=== PATIENT | female | born 1940 ===

== ENCOUNTER 2017-05-22 09:15 | Inpatient (IN) | payer MEDICARE, OTHER ==
[2017-05-22 09:15] VITALS: BMI 36.3
[2017-05-22] MEDS ORDERED: Albuterol-Ipratrop 3 mg / 0.5 (3 ml) UD ONE (09:42)
[2017-05-22] MEDS: Albuterol-Ipratrop 3 mg / 0.5 (3 ml) UD IH SCH ×3 (09:45→10:15)
--- NOTE | 2017-05-22 09:54 | C.PDOC ---
History Of Present Illness 76 y/o female, with PMHx of asthma, COPD, HTN, is brought to ED by ambulance for evaluation shortness of breath for the last 3 days. Pt was given 2L of oxygen at [place]. Denies fever, chills, cough, chest pain, lower extremity pain/ swelling, or any other associated symptoms at this time. Time Seen by Provider: 05/22/17 09:16 Chief Complaint (Nursing): Shortness Of Breath History Per: Patient History/Exam Limitations: no limitations Onset/Duration Of Symptoms: Days (3) Current Symptoms Are (Timing): Still Present Exacerbating Factor(s): Coughing Current Respiratory Medications: See Home Med List Severity: None Pain Scale Rating Of: 0 Associated Symptoms: denies: Fever, Chills, Sweating, Chest Pain, Bloody Cough, Productive Cough, Heart Racing, Leg/Calf Pain, Ankle/Leg Swelling, Dizziness, Light-headedness, Anxiety, Tingling In Hands Or Face, Musle Spasms In Hands Or Feet Recent travel outside of the [place]: No Additional History Per: EMS, [facility] Past Medical History Reviewed: Historical Data, Nursing Documentation, Vital Signs Vital Signs: Last Vital Signs Temp 97.9 F 05/22/17 09:34 Pulse 97 H 05/22/17 10:17 Resp 32 H 05/22/17 10:17 BP 160/67 H 05/22/17 10:17 Pulse Ox 98 05/22/17 10:18 - Medical History PMH: Asthma, COPD, Dementia, HTN - [facility] Procedures ESOPHAGOGASTRODUODENOSCOPY [EGD] W/CLOSED BIOPSY (02/21/13) Family History: States: No Known Family Hx - Social History Hx Alcohol Use: Yes Hx Substance Use: No - Immunization History Hx Tetanus Toxoid Vaccination: No Hx Influenza Vaccination: No Hx Pneumococcal Vaccination: No Review Of Systems Except As Marked, All Systems Reviewed And Found Negative. Constitutional: Negative for: Fever, Chills Cardiovascular: Negative for: Chest Pain, Palpitations, Edema, Light Headedness Respiratory: Positive for: Shortness of Breath. Negative for: Cough, Hemoptysis , Sputum Neurological: Negative for: Headache, Dizziness Physical Exam - Physical Exam Appears: Non-toxic, No Acute Distress, Other (morbidly obese) Skin: Normal Color, Warm, Dry Head: Atraumatic, Normacephalic Eye(s): bilateral: Normal Inspection Oral Mucosa: Moist Neck: Normal ROM, Supple Chest: Symmetrical Cardiovascular: Rhythm Regular, No Murmur Respiratory: Decreased Breath Sounds (diminished breath sounds bilaterally) Gastrointestinal/Abdominal: Soft, No Tenderness Extremity: Bilateral: Atraumatic, Normal ROM Neurological/Psych: Oriented x3, Normal Speech, Normal Cognition ED Course And Treatment - Laboratory Results Result Diagrams: 05/22/17 09:58 05/22/17 09:58 ECG: Interpreted By Me, Viewed By Me ECG Rhythm: Atrial Fibrillation Interpretation Of ECG: Non specific ST/T wave changes. Rate From EC (on RA) O2 Sat by Pulse Oximetry: 98 (on RA) Pulse Ox Interpretation: Normal Progress Note: Blood work, CXR, EKG ordered and reviewed. Pt was given nebulizer treatment and Solu-Medrol. Critical Care Time - Critical Care Note Total Time (in mins): 45 Documented critical care: time excludes all time spent performing seperately billable procedures. Medical Decision Making Medical Decision Making: CXR HISTORY: sob COMPARISON: Chest x-ray performed 02/20/13 TECHNIQUE: Chest PA and lateral FINDINGS: Examination limited by habitus and hypoinflation. LUNGS: No focal consolidation. Please note that chest x-ray has limited sensitivity for the detection of pulmonary masses. PLEURA: No significant pleural effusion identified. No definite pneumothorax . CARDIOVASCULAR: Marked cardiomegaly. OSSEOUS STRUCTURES: Degenerative changes. VISUALIZED UPPER ABDOMEN: Unremarkable. OTHER FINDINGS: None. IMPRESSION: Marked cardiomegaly. Disposition - Disposition Disposition: HOSPITALIZED Disposition Time: 11:09 Condition: SERIOUS Forms: [facility] (Colombian) - Clinical Impression Clinical Impression: COPD exacerbation, CHF (congestive heart failure), Elevated troponin - Scribe Statement The provider has reviewed the documentation as recorded by the Kayyibelida Torres All medical record entries made by the Kayyibeliad were at my direction and personally dictated by me. I have reviewed the chart and agree that the record accurately reflects my personal performance of the history, physical exam, medical decision making, and the department course for this patient. I have also personally directed, reviewed, and agree with the discharge instructions and disposition.
[2017-05-22 09:56] LABS: DRAW SITE VBG; VENOUS BLOOD GAS BASE EXCESS 10.8 mmol/L (0.0-2.0); VENOUS BLOOD GAS PCO2 115 mmHg (40-60); VENOUS BLOOD PH 7.19 (7.32-7.43)
[2017-05-22 10:04] LABS: BASO # 0.1 K/uL (0.0-0.2); EOS # 0.1 K/uL (0.0-0.7); MEAN PLATELET VOLUME 7.4 fL (7.2-11.7)
[2017-05-22 10:14] LABS: ALKALINE PHOSPHATASE 97 U/L (38-126); ALT/SGPT 30 U/L (9-52); AST/SGOT 27 U/L (14-36); BILIRUBIN,TOTAL 0.5 mg/dL (0.2-1.3); BLOOD UREA NITROGEN 42 mg/dL (7-17); CARBON DIOXIDE 37 mmol/L (22-30); CHLORIDE 96 mmol/L (98-107); GFR AFRICAN-AMERICAN > 60; GLUCOSE,RANDOM 117 mg/dL (65-105); POTASSIUM 5.2 mmol/L (3.6-5.2); SODIUM 142 mmol/L (132-148); TOTAL PROTEIN 7.3 g/dL (6.3-8.3)
[2017-05-22 10:19] LABS: BASO % 1.1 % (0.0-2.0); HEMATOCRIT 39.2 % (34.0-47.0); LYMPH % 18.1 % (20.0-40.0); MEAN CORPUSCULAR HEMOGLOBIN 26.9 pg (27.0-31.0); MEAN CORPUSCULAR HGB CONC 30.8 g/dL (33.0-37.0); MONO % 8.8 % (0.0-10.0); NRBC % 1.1 % (0.0-2.0); RED CELL DISTRIBUTION WIDTH 16.7 % (11.5-14.5); WHITE BLOOD COUNT 11.3 K/uL (4.8-10.8)
[2017-05-22 10:23] LABS: ABG ALLEN TEST POS; ARTERIAL BLOOD HGB O2 SAT 96.4 % (95.0-98.0); CARBOXYHEMOGLOBIN 2.2 % (0.5-1.5); DRAW SITE RR; HHB 0.6 % (0.0-5.0); METHEMOGLOBIN 0.8 % (0.0-3.0)
[2017-05-22 10:23] LABS: MEAN CELL VOLUME 87.3 fL (81.0-99.0)
[2017-05-22] MEDS ORDERED: Azithromycin 500 MG in Sodium Chloride 0.9% 250 ML IVPB STA (10:25)
[2017-05-22] MEDS ORDERED: Azithromycin 500mg/250ML NS 500 MG/250 ML BAG IVPB ONE (10:45)
[2017-05-22 11:53] LABS: ABG ALLEN TEST POS; ARTERIAL BLOOD GAS MODE BiPAP; ARTERIAL BLOOD HGB O2 SAT 93.7 % (95.0-98.0); CARBOXYHEMOGLOBIN 2.2 % (0.5-1.5); DRAW SITE RR; HHB 3.3 % (0.0-5.0); METHEMOGLOBIN 0.8 % (0.0-3.0)
--- NOTE | 2017-05-22 13:34 | CP.PCM.HP ---
<ZarinaChip R - Last Filed: 05/22/17 14:46> History of Present Illness - History of Present Illness History of Present Illness: CC: SOB x3 days HPI: Patient is a 76 year old female with PMH of COPD, Asthma, HTN, Cardiomegaly , Dementia who presents with SOB for the past three days. Patient seen in ED on BiPAP and primarily German speaking; history was provided by son. Per son, patient has associated hypersomnolence, weakness and fatigue the past three days. Her homemaker noted memory loss as well. She had a similar episode 2 years ago and was admitted to [facility] where she received "breathing treatment and stayed for one week". Admits to occasional vomiting which is chronic due to reflux issues. Denies fevers, chills, headaches, chest pain, palpitations, cough, nausea, diarrhea, constipation, or dizziness. PMD: Dr Costa PMHx: COPD (2nd hand smoke); asthma; cardiomegaly; dementia PSHx: cataracts; abdominal hernia about 30 years ago; bilateral tubal ligation Home Medications: Brinzolamide 15ml OP bid Budesonide/formoterol 1 aer IH bid diltiazem 120mg po daily donepezil 5mg po hs enalapril 1mg po daily esomeprazole 40mg po daily hydrochlorothiazide 12.5mg po daily metoclopramide 10mg po tid montelukast 10mg po daily multivitamin 1 tab po daily rosuvastatin 10mg po hs Allergies: NKDA FamHx: mother, , unspecified; father, from heart issues; son with asthma SocialHx: denies tobacco, denies etoh, denies illicit drug use, lives alone w/ help of home comfort advisor Present on Admission - Present on Admission Any Indicators Present on Admission: No Review of Systems - Review of Systems Systems not reviewed;Unavailable: Respiratory Distress - Constitutional Constitutional: absent: Chills, Fever, Headache - Cardiovascular Cardiovascular: absent: Chest Pain, Palpitations - Respiratory Respiratory: absent: Cough - Gastrointestinal Gastrointestinal: absent: Constipation, Diarrhea, Nausea - Neurological Neurological: absent: Dizziness Past Patient History - Past Social History Smoking Status: Never Smoked - CARDIAC Hx Hypertension: Yes - PULMONARY Hx Asthma: Yes Hx Chronic Obstructive Pulmonary Disease (COPD): Yes - NEUROLOGICAL Hx Dementia: Yes - MUSCULOSKELETAL/RHEUMATOLOGICAL Hx Degenerative Joint Disease: Yes Hx Osteoarthritis: Yes - PSYCHIATRIC Hx Substance Use: No - SURGICAL HISTORY Hx Surgeries: Yes Hx Cataract Extraction: Yes Hx Herniorrhaphy: Yes (Umbilical) - ANESTHESIA Hx Anesthesia: Yes Hx Anesthesia Reactions: No Meds Allergies/Adverse Reactions: Allergies Allergy/AdvReac Type Severity Reaction Status Date / Time No Known Allergies Allergy Unverified 05/22/17 09:31 Physical Exam - Constitutional Appears: Non-toxic Additional comments: on BIPAP - Head Exam Head Exam: ATRAUMATIC, NORMAL INSPECTION - Eye Exam Eye Exam: absent: EOMI Pupil Exam: PERRL Additional comments: EOM can't be examined as patient can't follow - ENT Exam Additional comments: Pharynx can't be examined due to BIPAP - Neck Exam Neck exam: Negative for: Lymphadenopathy - Respiratory Exam Respiratory Exam: Clear to Auscultation Bilateral, NORMAL BREATHING PATTERN. absent: Rales, Rhonchi, Wheezes - Cardiovascular Exam Cardiovascular Exam: REGULAR RHYTHM, +S1, +S2. absent: JVD Additional comments: No hepatojugular reflex - GI/Abdominal Exam GI & Abdominal Exam: Normal Bowel Sounds, Soft. absent: Distended, Tenderness Additional comments: central obesity, can't palpate liver and spleen - Rectal Exam Rectal Exam: Deferred - Extremities Exam Extremities exam: Positive for: pedal edema, pedal pulses present Additional comments: trace edema b/l legs, pulses presents in all extremities, varicose veins - Neurological Exam Additional comments: can't perform due to lack of participation Results - Vital Signs Recent Vital Signs: Last Vital Signs Temp 97.1 F L 05/22/17 12:00 Pulse 91 H 05/22/17 12:36 Resp 17 05/22/17 12:10 BP 137/70 05/22/17 11:54 Pulse Ox 95 05/22/17 12:10 - Labs Result Diagrams: 05/22/17 09:58 05/22/17 09:58 Labs: Laboratory Results - last 24 hr 05/22/17 11:49 Puncture Site Rr pCO2 104 H* pO2 83 HCO3 30.2 H ABG pH 7.18 L* ABG Total CO2 42.0 H ABG O2 Saturation 96.6 ABG Base Excess 6.9 H ABG Hemoglobin 12.5 ABG Carboxyhemoglobin 2.2 H POC ABG HHb (Measured) 3.3 ABG Methemoglobin 0.8 Sj Test Pos A-a O2 Difference 72.0 Respiratory Index 0.9 Hgb O2 Saturation 93.7 L Vent Mode Bipap FiO2 40.0 Inspiratory BiPAP 14 Expiratory BiPAP 7 Crit Value Called To Dr raymond lund Crit Value Called By Beata villagran nematology teacher Crit Value Read Back Y Blood Gas Notified Time 1155 Assessment & Plan (1) Respiratory acidosis Assessment and Plan: likely 2/2 COPD exacerbation - on BIPAP, IPAP 14 EPAP 7 Rate 14 FiO2 40% Status: Acute (2) COPD exacerbation Assessment and Plan: - Solumedrol 60mg iv q8 - singulair 10mg po daily - budesonide q12 - ipratropium q6h prn for sob - con't home med symbicort 160-4.5 mcg inh bid Status: Acute (3) Elevated troponin Assessment and Plan: - F/U troponin 4pm, 10pm, 4am - start lovenox 1mg/sc q12 only if CT head negative Status: Acute (4) Atrial fibrillation, new onset Assessment and Plan: - call PMD Dr Costa to see if hx of A-Fib and/or CHF Status: Acute (5) Cardiomegaly Assessment and Plan: CXR shows cardiomegaly and ProBNP elevated 5390 - 2D ECHO, F/U - Call PMD Dr Costa and find out if any hx of CHF Status: Acute (6) Elevated WBCs Assessment and Plan: Could be stress response; afebrile - F/U blood cultures, urine cultures Status: Acute (7) Abnormal RBC indices Assessment and Plan: - F/U iron, tibc, %sat, ferritin - Heme consult, Dr Mills Status: Acute (8) History of hypertension Assessment and Plan: - torsemide 20mg po daily - con't home med HCTZ 12.5mg po daily - con't home med cardizem 120mg po daily - con't home med enalapril 10mg po daily Status: Acute (9) History of hyperlipidemia Assessment and Plan: - con't home med rosuvastatin 10mg po hs Status: Acute (10) Change in mental state Assessment and Plan: Memory loss as per home comfort advisor - CT head w/o contrast Status: Acute (11) History of dementia Assessment and Plan: - con't home med donepezil 5mg po hs Status: Acute (12) History of gastroesophageal reflux (GERD) Assessment and Plan: - con't home med esomeprazole 40mg po daily Status: Acute (13) History of glaucoma Assessment and Plan: - dorzolamide 2% 10ml ou tid Status: Acute (14) Prophylactic measure Assessment and Plan: DVT: hold aspirin until CT head is negative GI: con't home med reglan 10mg po tid; con't home med esomeprazole 40mg po daily Multivitamin Status: Acute <Yo Wright - Last Filed: 05/22/17 19:51> Results - Vital Signs Recent Vital Signs: Last Vital Signs Temp 97.5 F L 05/22/17 16:00 Pulse 82 05/22/17 17:30 Resp 16 05/22/17 18:00 BP 143/73 05/22/17 17:14 Pulse Ox 99 05/22/17 18:00 - Labs Result Diagrams: 05/22/17 09:58 05/22/17 09:58 Labs: Laboratory Results - last 24 hr 05/22/17 05/22/17 05/22/17 11:49 14:49 17:03 Puncture Site Rr Rra pCO2 104 H* 114 H* pO2 83 64 L HCO3 30.2 H 31.0 H ABG pH 7.18 L* 7.16 L* ABG Total CO2 42.0 H 44.1 H ABG O2 Saturation 96.6 93.5 L ABG Base Excess 6.9 H 8.0 H ABG Hemoglobin 12.5 12.5 ABG Carboxyhemoglobin 2.2 H 2.4 H POC ABG HHb (Measured) 3.3 6.3 H ABG Methemoglobin 0.8 1.0 Sj Test Pos Po A-a O2 Difference 72.0 79.0 Respiratory Index 0.9 1.2 Hgb O2 Saturation 93.7 L 90.2 L Vent Mode Bipap Bipap Mechanical Rate FiO2 40.0 40.0 Tidal Volume PEEP Inspiratory BiPAP 14 14 Expiratory BiPAP 7 7 Crit Value Called To Dr raymond andrade Crit Value Called By Beata villagran nematology teacher Raman wright,tiffanie Crit Value Read Back Y Y Blood Gas Notified Time 1155 1455 Troponin I 0.4670 H* 05/22/17 17:25 Puncture Site Rra pCO2 64 H pO2 146 H HCO3 33.2 H ABG pH 7.38 ABG Total CO2 39.9 H ABG O2 Saturation 99.5 H ABG Base Excess 10.6 H ABG Hemoglobin 11.2 L ABG Carboxyhemoglobin 2.0 H POC ABG HHb (Measured) 0.5 ABG Methemoglobin 0.9 Sj Test Pos A-a O2 Difference 273.0 Respiratory Index 1.9 Hgb O2 Saturation 96.5 Vent Mode Prvc Mechanical Rate 16 FiO2 70.0 Tidal Volume 450 PEEP 5 Inspiratory BiPAP Expiratory BiPAP Crit Value Called To Crit Value Called By Crit Value Read Back Blood Gas Notified Time Troponin I Attending/Attestation - Attestation I have personally seen and examined this patient.: Yes I have fully participated in the care of the patient.: Yes I have reviewed all pertinent clinical information: Yes Notes (Text): 05/22/17 19:50 The patient was seen shortly after her arrival in the ICU Bed #1 History, Physical, Assessment and Plan were thoroughly gone over with the Resident. Yo Wright D.O.
--- NOTE | 2017-05-22 14:49 | CP.PCM.CON ---
<ZarinaChip R - Last Filed: 05/22/17 14:47> History of Present Illness - History of Present Illness History of Present Illness: CC: SOB x3 days HPI: Patient is a 76 year old female with PMH of COPD, Asthma, HTN, Cardiomegaly , Dementia who presents with SOB for the past three days. Patient seen in ED on BiPAP and primarily Uzbek speaking; history was provided by son. Per son, patient has associated hypersomnolence, weakness and fatigue the past three days. Her homemaker noted memory loss as well. She had a similar episode 2 years ago and was admitted to [facility] where she received "breathing treatment and stayed for one week". Admits to occasional vomiting which is chronic due to reflux issues. Denies fevers, chills, headaches, chest pain, palpitations, cough, nausea, diarrhea, constipation, or dizziness. PMD: Dr Costa PMHx: COPD (2nd hand smoke); asthma; cardiomegaly; dementia PSHx: cataracts; abdominal hernia about 30 years ago; bilateral tubal ligation Home Medications: Brinzolamide 15ml OP bid Budesonide/formoterol 1 aer IH bid diltiazem 120mg po daily donepezil 5mg po hs enalapril 1mg po daily esomeprazole 40mg po daily hydrochlorothiazide 12.5mg po daily metoclopramide 10mg po tid montelukast 10mg po daily multivitamin 1 tab po daily rosuvastatin 10mg po hs Allergies: NKDA FamHx: mother, , unspecified; father, from heart issues; son with asthma SocialHx: denies tobacco, denies etoh, denies illicit drug use, lives alone w/ help of home performance consultant Review of Systems - Review of Systems Systems not reviewed;Unavailable: Respiratory Distress - Constitutional Constitutional: absent: Chills, Fever, Headache - Cardiovascular Cardiovascular: absent: Chest Pain - Respiratory Respiratory: absent: Cough - Gastrointestinal Gastrointestinal: absent: Constipation, Diarrhea - Neurological Neurological: absent: Dizziness, Headaches Past Patient History - Past Social History Smoking Status: Never Smoked - CARDIAC Hx Hypertension: Yes - PULMONARY Hx Asthma: Yes Hx Chronic Obstructive Pulmonary Disease (COPD): Yes - NEUROLOGICAL Hx Dementia: Yes - MUSCULOSKELETAL/RHEUMATOLOGICAL Hx Degenerative Joint Disease: Yes Hx Osteoarthritis: Yes - PSYCHIATRIC Hx Substance Use: No - SURGICAL HISTORY Hx Surgeries: Yes Hx Cataract Extraction: Yes Hx Herniorrhaphy: Yes (Umbilical) - ANESTHESIA Hx Anesthesia: Yes Hx Anesthesia Reactions: No Meds Allergies/Adverse Reactions: Allergies Allergy/AdvReac Type Severity Reaction Status Date / Time No Known Allergies Allergy Unverified 05/22/17 09:31 - Medications Medications: Current Medications Aspirin (Aspirin Supp) 300 mg CO DAILY [facility] Last Admin: 05/22/17 11:28 Dose: 300 mg Diltiazem HCl (Cardizem Cd) 120 mg PO DAILY [facility] Donepezil HCl (Aricept) 5 mg PO HS [facility] Dorzolamide HCl (Trusopt) 10 ml OU TID [facility] Enalapril Maleate (Vasotec) 10 mg PO DAILY [facility] Home Med (Budesonide/Formoterol Fumarate [Symbicort 160-4.5 Mcg Inhaler]) 1 aer IH BID [facility] Hydrochlorothiazide (Microzide) 12.5 mg PO DAILY [facility] Ipratropium [place] (Atrovent) 0.5 mg IH [id number] PRN PRN Reason: Shortness of Breath Methylprednisolone (Solu-Medrol) 60 mg IV Q8H [facility] Metoclopramide HCl (Reglan) 10 mg PO TID [facility] Montelukast Sodium (Singulair) 10 mg PO DAILY [facility] Multivitamins (Hexavitamin) 1 tab PO DAILY [facility] Pantoprazole Sodium (Protonix Ec Tab) 40 mg PO DAILY [facility] Rosuvastatin Calcium (Crestor) 10 mg PO HS [facility] Torsemide (Demadex) 20 mg PO DAILY [facility] Physical Exam - Constitutional Appears: Non-toxic Additional comments: central obesity - Head Exam Head Exam: ATRAUMATIC, NORMAL INSPECTION - Eye Exam Eye Exam: Normal appearance Pupil Exam: PERRL - Neck Exam Neck exam: Negative for: Lymphadenopathy - Respiratory Exam Respiratory Exam: Clear to Auscultation Bilateral, NORMAL BREATHING PATTERN. absent: Rales, Rhonchi, Wheezes - Cardiovascular Exam Cardiovascular Exam: REGULAR RHYTHM, +S1. absent: JVD Additional comments: No hepatojugular reflex - GI/Abdominal Exam GI & Abdominal Exam: Normal Bowel Sounds, Soft Additional comments: central obesity, can't palpate liver and spleen - Rectal Exam Rectal Exam: Deferred - Extremities Exam Extremities exam: Positive for: pedal edema, pedal pulses present Additional comments: trace edema b/l legs, pulses presents in all extremities, varicose veins - Neurological Exam Neurological exam: Alert Additional comments: can't perform due to lack of participation - Skin Skin Exam: Dry, Intact, Normal Color, Warm Results - Vital Signs Recent Vital Signs: Last Vital Signs Temp 97.1 F L 05/22/17 12:00 Pulse 91 H 05/22/17 12:36 Resp 17 05/22/17 12:10 BP 137/70 05/22/17 11:54 Pulse Ox 95 05/22/17 12:10 - Labs Result Diagrams: 05/22/17 09:58 05/22/17 09:58 Labs: Laboratory Results - last 24 hr 05/22/17 11:49 Puncture Site Rr pCO2 104 H* pO2 83 HCO3 30.2 H ABG pH 7.18 L* ABG Total CO2 42.0 H ABG O2 Saturation 96.6 ABG Base Excess 6.9 H ABG Hemoglobin 12.5 ABG Carboxyhemoglobin 2.2 H POC ABG HHb (Measured) 3.3 ABG Methemoglobin 0.8 Sj Test Pos A-a O2 Difference 72.0 Respiratory Index 0.9 Hgb O2 Saturation 93.7 L Vent Mode Bipap FiO2 40.0 Inspiratory BiPAP 14 Expiratory BiPAP 7 Crit Value Called To Dr raymond lund Crit Value Called By Beata villagran care services manager Crit Value Read Back Y Blood Gas Notified Time 115 Assessment & Plan (1) Respiratory acidosis Status: Acute (2) COPD exacerbation Status: Acute (3) Elevated troponin Status: Acute (4) Atrial fibrillation, new onset Status: Acute (5) Cardiomegaly Status: Acute (6) Elevated WBCs Status: Acute (7) Abnormal RBC indices Status: Acute (8) History of hypertension Status: Acute (9) History of hyperlipidemia Status: Acute (10) Change in mental state Status: Acute (11) History of dementia Status: Acute (12) History of gastroesophageal reflux (GERD) Status: Acute (13) History of glaucoma Status: Acute (14) Prophylactic measure Status: Acute - Assessment and Plan (Free Text) Assessment: 76 year old female with COPD exacerbation and elevated troponins without chest pain Pulm: COPD exacerbation, h/o asthma - 05/22 CXR: No focal consolidation, no pleural effusion identified. Marked cardiomegaly. - Ventolin HFA 90 mcg - Symbicort 160-4.5 mcg - Montelukast 10 mg PO daily - Continue on BiPAP Cardio: Elevated troponins, h/o HTN - 05/22 Troponins x1: 0.5380, will f/u on REYNA - ASA 91 mg PO daily - Diltiazem 120 mg PO daily - Enalapril 10 mg PO daily - HCTA 12.5 mg PO daily - Torsemide 20 mg PO daily Neuro: h/o Dementia - Donepezil 5 mg PO daily GI: GERD - Esomeprazole 40 mg PO daily - Metoclopramide 10 mg TID Ophtho: Glaucoma - Azopt 1% Prophylaxis - GI: patient already on PPI - DVT: SCD; hold aspirin until CT head results come back - Tylenol 325 mg PO Q6 <Toribio Lund - Last Filed: 05/22/17 18:10> Meds - Medications Medications: Current Medications Aspirin (Aspirin Supp) 300 mg CO DAILY [facility] Last Admin: 05/22/17 11:28 Dose: 300 mg Diltiazem HCl (Cardizem Cd) 120 mg PO DAILY [facility] Donepezil HCl (Aricept) 5 mg PO HS [facility] Dorzolamide HCl (Trusopt) 10 ml OU TID [facility] Enalapril Maleate (Vasotec) 10 mg PO DAILY [facility] Home Med (Budesonide/Formoterol Fumarate [Symbicort 160-4.5 Mcg Inhaler]) 1 aer IH BID [facility] Hydrochlorothiazide (Microzide) 12.5 mg PO DAILY [facility] Ipratropium [place] (Atrovent) 0.5 mg IH RQ6 PRN PRN Reason: Shortness of Breath Methylprednisolone (Solu-Medrol) 60 mg IV Q8H [facility] Metoclopramide HCl (Reglan) 10 mg PO TID [facility]ISA Montelukast Sodium (Singulair) 10 mg PO DAILY [facility] Multivitamins (Hexavitamin) 1 tab PO DAILY [facility] Pantoprazole Sodium (Protonix Ec Tab) 40 mg PO DAILY [facility] Propofol (Diprivan) 100 mg IV TITR [facility] Rosuvastatin Calcium (Crestor) 10 mg PO HS [facility] Torsemide (Demadex) 20 mg PO DAILY [facility] Results - Vital Signs Recent Vital Signs: Last Vital Signs Temp 97.5 F L 05/22/17 16:00 Pulse 82 05/22/17 17:30 Resp 5 L 05/22/17 17:30 BP 143/73 05/22/17 17:14 Pulse Ox 100 05/22/17 17:30 - Labs Result Diagrams: 05/22/17 09:58 05/22/17 09:58 Labs: Laboratory Results - last 24 hr 05/22/17 05/22/17 05/22/17 11:49 14:49 17:03 Puncture Site Rr Rra pCO2 104 H* 114 H* pO2 83 64 L HCO3 30.2 H 31.0 H ABG pH 7.18 L* 7.16 L* ABG Total CO2 42.0 H 44.1 H ABG O2 Saturation 96.6 93.5 L ABG Base Excess 6.9 H 8.0 H ABG Hemoglobin 12.5 12.5 ABG Carboxyhemoglobin 2.2 H 2.4 H POC ABG HHb (Measured) 3.3 6.3 H ABG Methemoglobin 0.8 1.0 Sj Test Pos Po A-a O2 Difference 72.0 79.0 Respiratory Index 0.9 1.2 Hgb O2 Saturation 93.7 L 90.2 L Vent Mode Bipap Bipap Mechanical Rate FiO2 40.0 40.0 Tidal Volume PEEP Inspiratory BiPAP 14 14 Expiratory BiPAP 7 7 Crit Value Called To Dr raymond andrade Crit Value Called By Beata villagran care services manager Raman wright rrt Crit Value Read Back Y Y Blood Gas Notified Time 1155 1455 Troponin I 0.4670 H* 05/22/17 17:25 Puncture Site Rra pCO2 64 H pO2 146 H HCO3 33.2 H ABG pH 7.38 ABG Total CO2 39.9 H ABG O2 Saturation 99.5 H ABG Base Excess 10.6 H ABG Hemoglobin 11.2 L ABG Carboxyhemoglobin 2.0 H POC ABG HHb (Measured) 0.5 ABG Methemoglobin 0.9 Sj Test Pos A-a O2 Difference 273.0 Respiratory Index 1.9 Hgb O2 Saturation 96.5 Vent Mode Prvc Mechanical Rate 16 FiO2 70.0 Tidal Volume 450 PEEP 5 Inspiratory BiPAP Expiratory BiPAP Crit Value Called To Crit Value Called By Crit Value Read Back Blood Gas Notified Time Troponin I Attending/Attestation - Attestation I have personally seen and examined this patient.: Yes I have fully participated in the care of the patient.: Yes I have reviewed all pertinent clinical information: Yes Notes (Text): 05/22/17 18:08 Patient seen and examined. 76-year-old female admitted with respiratory failure on BiPAP with elevated troponin. Patient was intubated and put on ventilatory support for worsening respiratory acidosis and increasing lethargy IV sedation Steroids and nebulizer treatment Cardiology evaluation for elevated troponin Continue aspirin Follow up ABG and chest x-ray
[2017-05-22 14:53] LABS: ABG ALLEN TEST PO; ARTERIAL BLOOD GAS MODE BiPAP; ARTERIAL BLOOD HGB O2 SAT 90.2 % (95.0-98.0); CARBOXYHEMOGLOBIN 2.4 % (0.5-1.5); DRAW SITE RRA; HHB 6.3 % (0.0-5.0)
[2017-05-22] MEDS ORDERED: Etomidate 20 mg/10ml Inj IV ONE (15:45)
[2017-05-22] MEDS ORDERED: Propofol 10 mg/ml Inj (100 ml) IV SCH (16:00)
[2017-05-22] MEDS: Propofol 10 mg/ml 1,000 MG/100 ML VIAL IV PRN ×3 (16:00→22:00)
--- NOTE | 2017-05-22 16:18 | RAD ---
HISTORY: s/p intubation COMPARISON: Chest x-ray performed earlier the same day. TECHNIQUE: Chest, one view. FINDINGS: Examination limited by habitus. Distal tip of the endotracheal tube terminates approximately 4.5 cm above the level the sang. Nasogastric tube extends expected location of the stomach. LUNGS: Right basilar atelectasis. PLEURA: No significant pleural effusion identified. No definite pneumothorax . CARDIOVASCULAR: Cardiomegaly. OSSEOUS STRUCTURES: Degenerative changes. VISUALIZED UPPER ABDOMEN: Unremarkable. OTHER FINDINGS: None. IMPRESSION: Distal tip of the endotracheal tube terminates approximately 4.5 cm above the level the sang. Nasogastric tube extends to the expected location of the stomach. Marked cardiomegaly.
[2017-05-22 17:29] LABS: ABG ALLEN TEST POS; ABG MECHANICAL RATE 16; ARTERIAL BLOOD GAS MODE PRVC; ARTERIAL BLOOD HGB O2 SAT 96.5 % (95.0-98.0); ATERIAL BLOOD GAS PEEP 5; DRAW SITE RRA; HHB 0.5 % (0.0-5.0); METHEMOGLOBIN 0.9 % (0.0-3.0)
[2017-05-22] MEDS ORDERED: Home Med 1 UNIT (Budesonide/Formoterol Fumarate [Symbicort 160-4.5 Mcg Inhaler] 1 AER) IH SCH (18:00)
[2017-05-22] MEDS: Multiple Vitamins Tab PO SCH (18:44)
--- NOTE | 2017-05-22 18:54 | PCM.PROC ---
Procedures Attestation:: I certify that I have explained the specified Operation(s) or Procedure(s), risks, benefits and reasonable alternatives to the Patient and/or other person responsible. The opportunity was given to ask questions and all questions answered - Intubation Time Out Performed: Yes Sedative: Etomidate Mg Given: 20 Laryngoscope: Lynn ET Tube Size: 8.0 ET Tube Secured at Depth: 20 ET Tube Secured Locarion: Lips ET Tube Placement Confirmation: Visualized Passing Through Cords, Breath Sounds Equal Bilaterally, No Breath Sounds Over Epigastrum, Confirmation w/Capnometry Patient Tolerated Procedure: Well Procedure Immediate Complications: None
[2017-05-22] MEDS: Dorzolamide 2% Opht Sol 10ml OU SCH (19:13)
[2017-05-22] MEDS: Ipratropium 0.02% Inhal Soln (0.5 mg/2.5 ml) UD IH PRN (20:02)
--- NOTE | 2017-05-22 22:30 | CT ---
EXAM: CT Head Without Intravenous Contrast EXAM DATE/TIME: 05/22/2017 12:50 PM CLINICAL HISTORY: 76 years old, female; Signs and symptoms; Altered mental status/memory loss; Additional info: Change mental status: Decreased memory past days TECHNIQUE: Axial computed tomography images of the head/brain without intravenous contrast. All CT scans at this facility use one or more dose reduction techniques, viz.: automated exposure control; ma/kV adjustment per patient size (including targeted exams where dose is matched to indication; i.e. head); or iterative reconstruction technique. Coronal and sagittal reformatted images were created and reviewed. COMPARISON: No relevant prior studies available. FINDINGS: Hyperattenuating devices are noted within the auditory canals and posterior to the ears bilaterally presumably hearing aids. No intracranial hemorrhage. No intracranial edema. No evidence of infarct. The sinuses and mastoid air cells are clear. A portion of the right frontal bone is excluded from imaging. The visualized osseous structures are unremarkable. IMPRESSION: No acute findings.
[2017-05-23] MEDS: Ipratropium 0.02% Inhal Soln (0.5 mg/2.5 ml) UD IH PRN ×2 (02:36→08:06)
[2017-05-23] MEDS: Propofol 10 mg/ml 1,000 MG/100 ML VIAL IV PRN ×5 (03:00→21:42)
[2017-05-23 05:55] LABS: ABG MECHANICAL RATE 16; ARTERIAL BLOOD GAS MODE PRVC; ARTERIAL BLOOD HGB O2 SAT 95.3 % (95.0-98.0); ATERIAL BLOOD GAS PEEP 5; CARBOXYHEMOGLOBIN 1.6 % (0.5-1.5); DRAW SITE RB; METHEMOGLOBIN 1.1 % (0.0-3.0)
[2017-05-23 06:20] LABS: BASO % 0.1 % (0.0-2.0); HEMATOCRIT 37.9 % (34.0-47.0); LYMPH # 0.9 K/uL (1.0-4.3); LYMPH % 6.8 % (20.0-40.0); MEAN CELL VOLUME 85.6 fL (81.0-99.0); MEAN CORPUSCULAR HEMOGLOBIN 27.1 pg (27.0-31.0); MEAN CORPUSCULAR HGB CONC 31.6 g/dL (33.0-37.0); MEAN PLATELET VOLUME 7.7 fL (7.2-11.7); MONO # 0.4 K/uL (0.0-0.8); MONO % 3.1 % (0.0-10.0); NRBC % 0.6 % (0.0-2.0); PLATELET COUNT 217 K/uL (130-400); WHITE BLOOD COUNT 13.2 K/uL (4.8-10.8)
[2017-05-23 06:40] LABS: IRON 14 ug/dL (37-170)
[2017-05-23 06:48] LABS: ALKALINE PHOSPHATASE 93 U/L (38-126); ALT/SGPT 29 U/L (9-52); AST/SGOT 25 U/L (14-36); BILIRUBIN,TOTAL 0.7 mg/dL (0.2-1.3); BLOOD UREA NITROGEN 38 mg/dL (7-17); CARBON DIOXIDE 35 mmol/L (22-30); CHLORIDE 96 mmol/L (98-107); GFR AFRICAN-AMERICAN > 60; GLUCOSE,RANDOM 154 mg/dL (65-105); PHOSPHOROUS 2.6 mg/dL (2.5-4.5); SODIUM 141 mmol/L (132-148); TOTAL PROTEIN 6.8 g/dL (6.3-8.3)
[2017-05-23 08:53] LABS: EOSINOPHIL 1 % (0-4); NEUTROPHIL 86 % (50-75); TOTAL CELLS COUNTED 100
[2017-05-23] MEDS: Multiple Vitamins Tab PO SCH (09:18)
[2017-05-23] MEDS: Dorzolamide 2% Opht Sol 10ml OU SCH ×3 (09:19→17:11)
[2017-05-23] MEDS: Pantoprazole 40 mg Susp UD NG SCH (09:24)
[2017-05-23] MEDS ORDERED: diltiaZEM 120 mg/24 Hours CD Cap PO SCH (10:00)
[2017-05-23] MEDS: Albuterol-Ipratrop 3 mg / 0.5 (3 ml) UD INH SCH ×2 (14:10→19:49)
--- NOTE | 2017-05-23 16:16 | CARD ---
APPROVED REPORT EXAM: Two-dimensional and M-mode echocardiogram with Doppler and color Doppler. Other Information Quality : Technically LimitedRhythm : INDICATION Congestive Heart Failure Non STEMI COPD RISK FACTORS Hypertension Hyperlipidemia 2D DIMENSIONS IVSd1.0 (0.7-1.1cm)LVDd4.9 (3.9-5.9cm) PWd1.4 (0.7-1.1cm)LVDs3.4 (2.5-4.0cm) FS (%) 30.5 %LVEF (%)57.8 (>50%) M-Mode DIMENSIONS Left Atrium (MM)4.66 (2.5-4.0cm)Aortic Root3.43 (2.2-3.7cm) Aortic Cusp Exc.2.31 (1.5-2.0cm) Mitral Valve E/A ratio0.0 TDI E/Lateral E'0.0E/Medial E'0.0 Tricuspid Valve TR Peak [id number] Peak [id number] LEFT VENTRICLE The left ventricle is normal size. There is normal left ventricular wall thickness. Left ventricle systolic function is normal. The Ejection Fraction is 60-65%. There is hypokinesis in the basal anteroseptal wall. A Fib probably There is no ventricular septal defect visualized. RIGHT VENTRICLE The right ventricle is mildly to moderately dilated. The right ventricular systolic function is normal. ATRIA The left atrium size is normal. The right atrium is mildly dilated. AORTIC VALVE The aortic valve is mildly sclerotic. The aortic valve is probably tri-cuspid. The aortic valve is not well visualized. No aortic regurgitation is present. There is no aortic valvular stenosis. MITRAL VALVE The mitral valve is not well visualized. There is no evidence of mitral valve prolapse. There is no mitral valve regurgitation noted. TRICUSPID VALVE The tricuspid valve is not well visualized. There is moderate tricuspid regurgitation. Right ventricular systolic pressure is estimated at 40-50 mmHg. There is moderate pulmonary hypertension. PULMONIC VALVE The pulmonic valve is not well visualized. There is no pulmonic valvular regurgitation. GREAT VESSELS The ascending aorta is normal in size. The IVC is dilated. PERICARDIAL EFFUSION There is no pericardial effusion. <Conclusion> Left ventricle systolic function is normal. The Ejection Fraction is 60-65%. There is hypokinesis in the basal anteroseptal wall. There is moderate pulmonary hypertension.Limited study .
--- NOTE | 2017-05-23 16:52 | CP.PCM.PN ---
Subjective - Date & Time of Evaluation Date of Evaluation: 05/23/17 Time of Evaluation: 16:40 - Subjective Subjective: Hospitalist Progress Note Patient was seen and examined at 4:40 PM 05/23/17 Patient is a 76 year old female with PMH of COPD, Asthma, HTN, Cardiomegaly, Dementia who presented to [facility] ER on 05/22/17 with SOB for three days. Per son, patient had associated hypersomnolence, weakness and fatigue for three days. Her homemaker noted increased memory loss as well. She was found to be in Respiratory Acidosis and placed on BiPAP but then ended up being intubated and on ventilator. She was also found to have elevated Troponins and in Atrial Fibrillation (questionable whether this is new or not). Considering the increased memory loss over the past few days, a CT Head was needed to make sure that there was NO acute bleed and this study did not indicate any acute pathology. Therefore therapeutic Lovenox was started. Echocardiogram was also done and this shows EF estimated at 60-65% with normal LVSF, hypokinesis in the basal anteroseptal wall, and moderate Pulmonary HTN. Patient's PMD Dr. Costa was updated as to patient status on 05/23/17. Please see Assessment and Plans below for further details. ROS are not possible at this time as patient is intubated and ventilator. Assessment & Plan (1) Respiratory acidosis Assessment and Plan: likely 2/2 COPD exacerbation - Currently intubated and on vent Status: Acute (2) COPD exacerbation/Moderate Pulmonary HTN Assessment and Plan: - Solumedrol 60mg iv q8 - singulair 10mg po daily - ipratropium q6h prn for sob - con't home med symbicort 160-4.5 mcg inh bid once the Solumedrol is discontinued - Await further recommendations from Training Representative Dr. Camejo Status: Acute (3) Elevated troponin Assessment and Plan: - Troponins remain elevated and she was started on Therapeutic Lovenox - Await further recommendations from Lawn Technician Dr. Hart who is also the patient's outpatient Lawn Technician Status: Acute (4) Atrial fibrillation, new onset Assessment and Plan: - [id number] score is 4 - Currently patient is on therapuetic Lovenox - ASA 81 mg NG 1x/day Status: Acute (5) Cardiomegaly Assessment and Plan: CXR shows cardiomegaly and ProBNP elevated 5390 - 2D ECHO: EF estimated at 60-65% with normal LVSF, hypokinesis in the basal anteroseptal wall, and moderate Pulmonary HTN Status: Acute (6) Elevated WBCs Assessment and Plan: Could be stress response; afebrile - F/U blood cultures - Urine Culture does not show any growth Status: Acute (7) Abnormal RBC indices Assessment and Plan: - Iron level is low and patient may have the beginning of Iron Deficiency Anemia. Feosol 300 mg solution 1x/day via NG ordered - Await further recommendations from Water/Wastewater Engineer Dr. 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 - CT head w/o contrast does not show any acute pathology Status: Acute (11) History of dementia Assessment and Plan: - con't home med donepezil 5mg po hs Status: Acute (12) History of gastroesophageal reflux (GERD) Assessment and Plan: - con't home med esomeprazole 40mg po daily Status: Acute (13) History of glaucoma Assessment and Plan: - dorzolamide 2% 10ml ou tid Status: Acute (14) Prophylactic measure Assessment and Plan: Therapeutic Lovenox GI: con't home med reglan 10mg po tid; con't home med esomeprazole 40mg po daily Multivitamin Pulmicore Feedings via NG at 30 ml/hour Status: Acute Objective - Vital Signs/Intake and Output Vital Signs (last 24 hours): Temp Pulse Resp BP Pulse Ox 97.3 F L 82 16 130/67 95 05/23/17 16:00 05/23/17 16:00 05/23/17 16:00 05/23/17 16:00 05/23/17 16:00 Intake and Output: 05/23/17 05/23/17 06:59 18:59 Intake Total 660.5 735.4 Output Total 465 735 Balance 195.5 0.4 - Medications Medications: Current Medications Albuterol/Ipratropium (Duoneb 3 Mg/0.5 Mg (3 Ml) Ud) 3 ml INH RQ6 [facility] Last Admin: 05/23/17 14:10 Dose: 3 ml Aspirin (Aspirin) 325 mg PO DAILY [facility] Last Admin: 05/23/17 09:18 Dose: 325 mg Diltiazem HCl (Cardizem) 30 mg PO QID [facility] Last Admin: 05/23/17 13:12 Dose: 30 mg Dorzolamide HCl (Trusopt) 10 ml OU TID [facility] Last Admin: 05/23/17 13:12 Dose: 1 drop Enalapril Maleate (Vasotec) 10 mg PO DAILY [facility] Last Admin: 05/23/17 09:18 Dose: 10 mg Enoxaparin Sodium (Lovenox) 120 mg SC Q12 [facility] Propofol (Diprivan) 1,000 mg in 100 mls @ 3.742 mls/hr IV .Q24H PRN; Protocol; 5 MCG/KG/MIN PRN Reason: Agitation Last Titration: 05/23/17 14:30 Dose: 30 mcg/kg/min, 22.453 mls/hr Methylprednisolone (Solu-Medrol) 60 mg IV Q8H [facility] Last Admin: 05/23/17 13:12 Dose: 60 mg Montelukast Sodium (Singulair) 10 mg PO DAILY [facility] Last Admin: 05/23/17 09:18 Dose: 10 mg Multivitamins (Hexavitamin) 1 tab PO DAILY [facility] Last Admin: 05/23/17 09:18 Dose: 1 tab Pantoprazole Sodium (Protonix Susp) 40 mg NG DAILY [facility] Last Admin: 05/23/17 09:24 Dose: 40 mg Rosuvastatin Calcium (Crestor) 10 mg PO HS [facility] Last Admin: 05/22/17 21:20 Dose: 10 mg Torsemide (Demadex) 20 mg PO DAILY [facility] Last Admin: 05/23/17 09:19 Dose: 20 mg - Labs Labs: 05/23/17 06:12 05/23/17 06:12
--- NOTE | 2017-05-23 17:01 | CP.PCM.CON ---
History of Present Illness - History of Present Illness History of Present Illness: CC: SOB x3 days HPI: Patient is a 76 year old female with PMH of COPD, Asthma, HTN, Cardiomegaly , Dementia who presents with SOB for the past three days. Patient seen in ED on BiPAP and primarily [place]ish speaking; history was provided by son. Per son, patient has associated hypersomnolence, weakness and fatigue the past three days. Her homemaker noted memory loss as well. She had a similar episode 2 years ago and was admitted to [facility] where she received "breathing treatment and stayed for one week". Admits to occasional vomiting which is chronic due to reflux issues. Denies fevers, chills, headaches, chest pain, palpitations, cough, nausea, diarrhea, constipation, or dizziness. PMD: Dr Costa PMHx: COPD (2nd hand smoke); asthma; cardiomegaly; dementia PSHx: cataracts; abdominal hernia about 30 years ago; bilateral tubal ligation Home Medications: Brinzolamide 15ml OP bid Budesonide/formoterol 1 aer IH bid diltiazem 120mg po daily donepezil 5mg po hs enalapril 1mg po daily esomeprazole 40mg po daily hydrochlorothiazide 12.5mg po daily metoclopramide 10mg po tid montelukast 10mg po daily multivitamin 1 tab po daily rosuvastatin 10mg po hs Allergies: NKDA FamHx: mother, , unspecified; father, from heart issues; son with asthma SocialHx: denies tobacco, denies etoh, denies illicit drug use, lives alone w/ help of director of operations home health Review of Systems - Review of Systems Systems not reviewed;Unavailable: Respiratory Distress - Constitutional Constitutional: absent: Chills, Fever, Headache - Cardiovascular Cardiovascular: absent: Chest Pain - Respiratory Respiratory: absent: Cough - Gastrointestinal Gastrointestinal: absent: Constipation, Diarrhea - Neurological Neurological: absent: Dizziness, Headaches Physical Exam - Constitutional Appears: Non-toxic Additional comments: central obesity - Head Exam Head Exam: ATRAUMATIC, NORMAL INSPECTION - Eye Exam Eye Exam: Normal appearance Pupil Exam: PERRL - Neck Exam Neck exam: Negative for: Lymphadenopathy - Respiratory Exam Respiratory Exam: Clear to Auscultation Bilateral, NORMAL BREATHING PATTERN. absent: Rales, Rhonchi, Wheezes - Cardiovascular Exam Cardiovascular Exam: REGULAR RHYTHM, +S1. absent: JVD Additional comments: No hepatojugular reflex - GI/Abdominal Exam GI & Abdominal Exam: Normal Bowel Sounds, Soft Additional comments: central obesity, can't palpate liver and spleen - Rectal Exam Rectal Exam: Deferred - Extremities Exam Extremities exam: Positive for: pedal edema, pedal pulses present Additional comments: trace edema b/l legs, pulses presents in all extremities, varicose veins - Neurological Exam Neurological exam: Alert Additional comments: can't perform due to lack of participation Past Patient History - Past Medical History & Family History Past Medical History?: Yes - Past Social History Smoking Status: Never Smoked - CARDIAC Hx Hypertension: Yes - PULMONARY Hx Asthma: Yes Hx Chronic Obstructive Pulmonary Disease (COPD): Yes - NEUROLOGICAL Hx Dementia: Yes - RENAL Hx Chronic Kidney Disease: No - ENDOCRINE/METABOLIC Hx Endocrine Disorders: No - HEMATOLOGICAL/ONCOLOGICAL Hx Blood Disorders: No - INTEGUMENTARY Hx Dermatological Problems: No - MUSCULOSKELETAL/RHEUMATOLOGICAL Hx Degenerative Joint Disease: Yes Hx Osteoarthritis: Yes - GASTROINTESTINAL Hx Gastrointestinal Disorders: No - GENITOURINARY/GYNECOLOGICAL Hx Genitourinary Disorders: No - PSYCHIATRIC Hx Substance Use: No - SURGICAL HISTORY Hx Surgeries: Yes Hx Cataract Extraction: Yes Hx Herniorrhaphy: Yes (Umbilical) - ANESTHESIA Hx Anesthesia: Yes Hx Anesthesia Reactions: No Meds Allergies/Adverse Reactions: Allergies Allergy/AdvReac Type Severity Reaction Status Date / Time No Known Allergies Allergy Unverified 05/22/17 09:31 - Medications Medications: Current Medications Albuterol/Ipratropium (Duoneb 3 Mg/0.5 Mg (3 Ml) Ud) 3 ml INH RQ6 [facility] Last Admin: 05/23/17 14:10 Dose: 3 ml Aspirin (Aspirin) 325 mg PO DAILY [facility] Last Admin: 05/23/17 09:18 Dose: 325 mg Diltiazem HCl (Cardizem) 30 mg PO QID [facility] Last Admin: 05/23/17 13:12 Dose: 30 mg Dorzolamide HCl (Trusopt) 10 ml OU TID [facility] Last Admin: 05/23/17 13:12 Dose: 1 drop Enalapril Maleate (Vasotec) 10 mg PO DAILY [facility] Last Admin: 05/23/17 09:18 Dose: 10 mg Enoxaparin Sodium (Lovenox) 120 mg SC Q12 [facility] Propofol (Diprivan) 1,000 mg in 100 mls @ 3.742 mls/hr IV .Q24H PRN; Protocol; 5 MCG/KG/MIN PRN Reason: Agitation Last Titration: 05/23/17 14:30 Dose: 30 mcg/kg/min, 22.453 mls/hr Methylprednisolone (Solu-Medrol) 60 mg IV Q8H [facility] Last Admin: 05/23/17 13:12 Dose: 60 mg Montelukast Sodium (Singulair) 10 mg PO DAILY [facility] Last Admin: 05/23/17 09:18 Dose: 10 mg Multivitamins (Hexavitamin) 1 tab PO DAILY [facility] Last Admin: 05/23/17 09:18 Dose: 1 tab Pantoprazole Sodium (Protonix Susp) 40 mg NG DAILY [facility] Last Admin: 05/23/17 09:24 Dose: 40 mg Rosuvastatin Calcium (Crestor) 10 mg PO HS [facility] Last Admin: 05/22/17 21:20 Dose: 10 mg Torsemide (Demadex) 20 mg PO DAILY [facility] Last Admin: 05/23/17 09:19 Dose: 20 mg Results - Vital Signs Recent Vital Signs: Last Vital Signs Temp 97.3 F L 05/23/17 16:00 Pulse 82 05/23/17 16:00 Resp 16 05/23/17 16:00 BP 130/67 05/23/17 16:00 Pulse Ox 95 05/23/17 16:00 - Labs Result Diagrams: 05/23/17 06:12 05/23/17 06:12 Labs: Laboratory Results - last 24 hr 05/22/17 05/22/17 05/22/17 17:03 17:25 22:53 WBC RBC Hgb Hct MCV MCH MCHC RDW Plt Count MPV Neut % (Auto) Lymph % (Auto) [place] % (Auto) Eos % (Auto) Baso % (Auto) Neut # Lymph # [place] # Eos # Baso # Neutrophils % (Manual) Band Neutrophils % Lymphocytes % (Manual) Monocytes % (Manual) Eosinophils % (Manual) Toxic Granulation Platelet Estimate Polychromasia Hypochromasia (manual) Anisocytosis (manual) Puncture Site Rra pCO2 64 H pO2 146 H HCO3 33.2 H ABG pH 7.38 ABG Total CO2 39.9 H ABG O2 Saturation 99.5 H ABG Base Excess 10.6 H ABG Hemoglobin 11.2 L ABG Carboxyhemoglobin 2.0 H POC ABG HHb (Measured) 0.5 ABG Methemoglobin 0.9 Sj Test Pos A-a O2 Difference 273.0 Respiratory Index 1.9 Hgb O2 Saturation 96.5 Vent Mode Prvc Mechanical Rate 16 FiO2 70.0 Tidal Volume 450 PEEP 5 Sodium Potassium Chloride Carbon Dioxide Anion Gap BUN Creatinine Est GFR ( Amer) Est GFR (Non-Af Amer) Random Glucose Calcium Phosphorus Magnesium Iron TIBC % Saturation Ferritin Total Bilirubin AST ALT Alkaline Phosphatase Troponin I 0.4670 H* 0.6120 H* Total Protein Albumin Globulin Albumin/Globulin Ratio 05/23/17 05/23/17 05/23/17 05:37 06:12 06:12 WBC RBC Hgb Hct MCV MCH MCHC RDW Plt Count MPV Neut % (Auto) Lymph % (Auto) [place] % (Auto) Eos % (Auto) Baso % (Auto) Neut # Lymph # [place] # Eos # Baso # Neutrophils % (Manual) Band Neutrophils % Lymphocytes % (Manual) Monocytes % (Manual) Eosinophils % (Manual) Toxic Granulation Platelet Estimate Polychromasia Hypochromasia (manual) Anisocytosis (manual) Puncture Site Rb pCO2 51 H pO2 82 HCO3 34.0 H ABG pH 7.47 H ABG Total CO2 38.7 H ABG O2 Saturation 97.9 ABG Base Excess 11.7 H ABG Hemoglobin 11.6 L ABG Carboxyhemoglobin 1.6 H POC ABG HHb (Measured) 2.0 ABG Methemoglobin 1.1 Sj Test Na A-a O2 Difference 282.0 Respiratory Index 3.4 Hgb O2 Saturation 95.3 Vent Mode Prvc Mechanical Rate 16 FiO2 60.0 Tidal Volume 450 PEEP 5 Sodium 141 Potassium 5.0 Chloride 96 L Carbon Dioxide 35 H Anion Gap 15 BUN 38 H Creatinine 0.6 L Est GFR ( Amer) > 60 Est GFR (Non-Af Amer) > 60 Random Glucose 154 H Calcium 9.0 Phosphorus 2.6 Magnesium 2.0 Iron 14 L TIBC 417 % Saturation 3 L Ferritin 9.3 Total Bilirubin 0.7 AST 25 ALT 29 Alkaline Phosphatase 93 Troponin I 0.5580 H* Total Protein 6.8 Albumin 3.3 L Globulin 3.4 Albumin/Globulin Ratio 1.0 05/23/17 06:12 WBC 13.2 H RBC 4.42 Hgb 12.0 Hct 37.9 MCV 85.6 MCH 27.1 MCHC 31.6 L RDW 16.0 H Plt Count 217 MPV 7.7 Neut % (Auto) 90.0 H Lymph % (Auto) 6.8 L [place] % (Auto) 3.1 Eos % (Auto) 0.0 Baso % (Auto) 0.1 Neut # 11.9 H Lymph # 0.9 L [place] # 0.4 Eos # 0.0 Baso # 0.0 Neutrophils % (Manual) 86 H Band Neutrophils % 1 Lymphocytes % (Manual) 7 L Monocytes % (Manual) 5 Eosinophils % (Manual) 1 Toxic Granulation Present Platelet Estimate Normal Polychromasia Slight Hypochromasia (manual) Slight Anisocytosis (manual) Slight Puncture Site pCO2 pO2 HCO3 ABG pH ABG Total CO2 ABG O2 Saturation ABG Base Excess ABG Hemoglobin ABG Carboxyhemoglobin POC ABG HHb (Measured) ABG Methemoglobin Sj Test A-a O2 Difference Respiratory Index Hgb O2 Saturation Vent Mode Mechanical Rate FiO2 Tidal Volume PEEP Sodium Potassium Chloride Carbon Dioxide Anion Gap BUN Creatinine Est GFR ( Amer) Est GFR (Non-Af Amer) Random Glucose Calcium Phosphorus Magnesium Iron TIBC % Saturation Ferritin Total Bilirubin AST ALT Alkaline Phosphatase Troponin I Total Protein Albumin Globulin Albumin/Globulin Ratio Assessment & Plan - Assessment and Plan (Free Text) Assessment: 76 year old female with COPD exacerbation and elevated troponins without chest pain Pulm: COPD exacerbation, h/o asthma - 05/22 CXR: No focal consolidation, no pleural effusion identified. Marked cardiomegaly. - Ventolin HFA 90 mcg - Symbicort 160-4.5 mcg - Montelukast 10 mg PO daily - Continue on BiPAP Cardio: Elevated troponins, h/o HTN - 05/22 Troponins x1: 0.5380, will f/u on REYNA - ASA 91 mg PO daily - Diltiazem 120 mg PO daily - Enalapril 10 mg PO daily - HCTA 12.5 mg PO daily - Torsemide 20 mg PO daily Neuro: h/o Dementia - Donepezil 5 mg PO daily GI: GERD - Esomeprazole 40 mg PO daily - Metoclopramide 10 mg TID Ophtho: Glaucoma - Azopt 1% Prophylaxis - GI: patient already on PPI - DVT: SCD; hold aspirin until CT head results come back - Tylenol 325 mg PO Q6 Will check echo in am Continue current supportive therapy
--- NOTE | 2017-05-23 17:07 | CP.PCM.PN ---
Subjective - Date & Time of Evaluation Date of Evaluation: 05/23/17 Time of Evaluation: 11:30 - Subjective Subjective: Patient seen and evaluated On Ventilator Not in distress Objective - Vital Signs/Intake and Output Vital Signs (last 24 hours): Temp Pulse Resp BP Pulse Ox 97.3 F L 82 16 130/67 95 05/23/17 16:00 05/23/17 16:00 05/23/17 16:00 05/23/17 16:00 05/23/17 16:00 Intake and Output: 05/23/17 05/23/17 06:59 18:59 Intake Total 660.5 735.4 Output Total 465 735 Balance 195.5 0.4 - Medications Medications: Current Medications Albuterol/Ipratropium (Duoneb 3 Mg/0.5 Mg (3 Ml) Ud) 3 ml INH RQ6 [facility] Last Admin: 05/23/17 14:10 Dose: 3 ml Aspirin (Aspirin) 325 mg PO DAILY [facility] Last Admin: 05/23/17 09:18 Dose: 325 mg Diltiazem HCl (Cardizem) 30 mg PO QID [facility] Last Admin: 05/23/17 13:12 Dose: 30 mg Dorzolamide HCl (Trusopt) 10 ml OU TID [facility] Last Admin: 05/23/17 13:12 Dose: 1 drop Enalapril Maleate (Vasotec) 10 mg PO DAILY [facility] Last Admin: 05/23/17 09:18 Dose: 10 mg Enoxaparin Sodium (Lovenox) 120 mg SC Q12 [facility] Propofol (Diprivan) 1,000 mg in 100 mls @ 3.742 mls/hr IV .Q24H PRN; Protocol; 5 MCG/KG/MIN PRN Reason: Agitation Last Titration: 05/23/17 14:30 Dose: 30 mcg/kg/min, 22.453 mls/hr Methylprednisolone (Solu-Medrol) 60 mg IV Q8H [facility] Last Admin: 05/23/17 13:12 Dose: 60 mg Montelukast Sodium (Singulair) 10 mg PO DAILY [facility] Last Admin: 05/23/17 09:18 Dose: 10 mg Multivitamins (Hexavitamin) 1 tab PO DAILY [facility] Last Admin: 05/23/17 09:18 Dose: 1 tab Pantoprazole Sodium (Protonix Susp) 40 mg NG DAILY [facility] Last Admin: 05/23/17 09:24 Dose: 40 mg Rosuvastatin Calcium (Crestor) 10 mg PO HS [facility] Last Admin: 05/22/17 21:20 Dose: 10 mg Torsemide (Demadex) 20 mg PO DAILY [facility] Last Admin: 05/23/17 09:19 Dose: 20 mg - Labs Labs: 05/23/17 06:12 05/23/17 06:12 - Head Exam Head Exam: ATRAUMATIC, NORMAL INSPECTION - Eye Exam Eye Exam: PERRL - ENT Exam ENT Exam: Mucous Membranes Moist - Neck Exam Neck Exam: Normal Inspection - Respiratory Exam Respiratory Exam: Decreased Breath Sounds - Cardiovascular Exam Cardiovascular Exam: Irregular Rhythm, +S1, +S2 - GI/Abdominal Exam GI & Abdominal Exam: Normal Bowel Sounds - Skin Skin Exam: Warm Assessment and Plan - Assessment and Plan (Free Text) Assessment: 1. Abnormal troponin Most likley secondary to CHF/COPD and hypoxemia ECHO: Normal EF Do not recommend additional cardiac work up 2. Diastolic CHF Lasix as needed 3. A fib: Needs AC due to high [id number] score senior care AC difficult due to dementia and fall risk 4, Resp failure/COPD on Ventilator Continue Carddizem, Lovenox therapeutic and Lasix for now
--- NOTE | 2017-05-23 18:40 | CP.CCUPN ---
CCU Subjective - Physician Review Events Since Last Encounter (Free Text): 05/24/17 16:34 76-year-old female with a COPD asthma hypertension atrial fibrillation and dementia admitted with the shortness of breath. Hypercapnic respiratory failure, patient was intubated. Currently on ventilator. Intensive care unit rounds were made with ICU nurses. Patient is still hypoxic, sedated at this time. Day 1 on ventilator. Clinical examination is unremarkable. Sedated. Responding to deep stimuli. Labs reviewed Atrial fibrillation noted. Started on anticoagulation. Currently started also feeding. Will taper the oxygen, patient is not ready for extubation. Bronchial dilators right antibiotic. We'll follow the patient CCU Objective - Vital Signs / Intake & Output Vital Signs (Last 4 hours): Vital Signs Temp Pulse Resp BP Pulse Ox 05/23/17 18:00 76 16 115/66 95 05/23/17 17:00 85 15 133/60 95 05/23/17 16:00 97.3 F L 82 16 130/67 95 05/23/17 15:00 86 16 122/52 L Intake and Output (Last 8hrs): Intake & Output 05/23/17 05/23/17 05/23/17 06:59 14:59 22:59 Intake Total 291.3 640.4 340.0 Output Total 340 535 310 Balance -48.7 105.4 30.0 Weight 262 lb 6.4 oz Intake: IV 122.4 217.6 60 Intake, IV Amount 168.9 127.8 90.0 left hand 168.9 127.8 90.0 Oral 0 0 Tube Feeding 115 110 Albumin 180 80 Output: Urine 340 535 310 Urethral (Saenz) 340 535 310 - Medications Active Medications: Active Medications Generic Name Dose Route Start Last Admin Trade Name Freq PRN Reason Stop Dose Admin Albuterol/Ipratropium 3 ml 05/23/17 14:00 05/23/17 14:10 Duoneb 3 Mg/0.5 Mg (3 Ml) Ud INH 3 ml RQ6 ALISA Administration Aspirin 325 mg 05/23/17 10:00 05/23/17 09:18 Aspirin PO 325 mg DAILY ALISA Administration Diltiazem HCl 30 mg 05/23/17 10:00 05/23/17 17:11 Cardizem PO 30 mg QID ALISA Administration Dorzolamide HCl 10 ml 05/22/17 18:00 05/23/17 17:11 Trusopt OU 1 drop TID ALISA Administration Enalapril Maleate 10 mg 05/23/17 10:00 05/23/17 09:18 Vasotec PO 10 mg DAILY ALISA Administration Enoxaparin Sodium 120 mg 05/23/17 22:00 Lovenox SC Q12 ALISA Ferrous Sulfate 300 mg 05/24/17 10:00 Feosol Liq PO DAILY ALISA Propofol 1,000 mg in 100 mls @ 3.742 mls/hr 05/22/17 18:47 05/23/17 17:12 Diprivan IV 30 mcg/kg/min .Q24H PRN 22.453 mls/hr Agitation Administration Protocol 5 MCG/KG/MIN Methylprednisolone 60 mg 05/22/17 14:00 05/23/17 13:12 Solu-Medrol IV 60 mg Q8H ALISA Administration Montelukast Sodium 10 mg 05/23/17 10:00 05/23/17 09:18 Singulair PO 10 mg DAILY ALISA Administration Multivitamins 1 tab 05/22/17 13:45 05/23/17 09:18 Hexavitamin PO 1 tab DAILY ALISA Administration Pantoprazole Sodium 40 mg 05/23/17 10:00 05/23/17 09:24 Protonix Susp NG 40 mg DAILY ALISA Administration Rosuvastatin Calcium 10 mg 05/22/17 22:00 05/22/17 21:20 Crestor PO 10 mg HS ALISA Administration Torsemide 20 mg 05/23/17 10:00 05/23/17 09:19 Demadex PO 20 mg DAILY ALISA Administration - Patient Studies Lab Studies: Microbiology Studies 05/22/17 11:36 MRSA Culture (Admit) - Final Naris MRSA NOT DETECTED 05/22/17 17:56 Urine Culture - Preliminary Urine,Catheterized No growth. Lab Studies 05/23/17 05/23/17 05/23/17 Range/Units 06:12 06:12 06:12 WBC 13.2 H (4.8-10.8) K/uL RBC 4.42 (3.80-5.20) Mil/uL Hgb 12.0 (11.0-16.0) g/dL Hct 37.9 (34.0-47.0) % MCV 85.6 (81.0-99.0) fL MCH 27.1 (27.0-31.0) pg MCHC 31.6 L (33.0-37.0) g/dL RDW 16.0 H (11.5-14.5) % Plt Count 217 (130-400) K/uL MPV 7.7 (7.2-11.7) fL Neut % (Auto) 90.0 H (50.0-75.0) % Lymph % (Auto) 6.8 L (20.0-40.0) % [place] % (Auto) 3.1 (0.0-10.0) % Eos % (Auto) 0.0 (0.0-4.0) % Baso % (Auto) 0.1 (0.0-2.0) % Neut # 11.9 H (1.8-7.0) K/uL Lymph # 0.9 L (1.0-4.3) K/uL [place]aufman # 0.4 (0.0-0.8) K/uL Eos # 0.0 (0.0-0.7) K/uL Baso # 0.0 (0.0-0.2) K/uL Neutrophils % (Manual) 86 H (50-75) % Band Neutrophils % 1 (0-2) % Lymphocytes % (Manual) 7 L (20-40) % Monocytes % (Manual) 5 (0-10) % Eosinophils % (Manual) 1 (0-4) % Toxic Granulation Present Platelet Estimate Normal (NORMAL) Polychromasia Slight Hypochromasia (manual) Slight Anisocytosis (manual) Slight Puncture Site pCO2 (35-45) mm/Hg pO2 (80-100) mm/Hg HCO3 (21-28) mmol/L ABG pH (7.35-7.45) ABG Total CO2 (22-28) mmol/L ABG O2 Saturation (95-98) % ABG Base Excess (-2.0-3.0) mmol/L ABG Hemoglobin (11.7-17.4) g/dL ABG Carboxyhemoglobin (0.5-1.5) % POC ABG HHb (Measured) (0.0-5.0) % ABG Methemoglobin (0.0-3.0) % Sj Test A-a O2 Difference mm/Hg Respiratory Index Hgb O2 Saturation (95.0-98.0) % Vent Mode Mechanical Rate FiO2 % Tidal Volume PEEP Sodium 141 (132-148) mmol/L Potassium 5.0 (3.6-5.2) mmol/L Chloride 96 L (98-107) mmol/L Carbon Dioxide 35 H (22-30) mmol/L Anion Gap 15 (10-20) BUN 38 H (7-17) mg/dL Creatinine 0.6 L (0.7-1.2) MG/DL Est GFR ( Amer) > 60 Est GFR (Non-Af Amer) > 60 Random Glucose 154 H (65-105) mg/dL Calcium 9.0 (8.6-10.4) mg/dl Phosphorus 2.6 (2.5-4.5) mg/dL Magnesium 2.0 (1.6-2.3) mg/dL Iron 14 L (37-170) ug/dL TIBC 417 (250-450) ug/dL % Saturation 3 L (20-55) Ferritin 9.3 ng/mL Total Bilirubin 0.7 (0.2-1.3) mg/dL AST 25 (14-36) U/L ALT 29 (9-52) U/L Alkaline Phosphatase 93 (38-126) U/L Troponin I 0.5580 H* (0.00-0.120) ng/mL Total Protein 6.8 (6.3-8.3) g/dL Albumin 3.3 L (3.5-5.0) g/dL Globulin 3.4 (2.2-3.9) gm/dL Albumin/Globulin Ratio 1.0 (1.0-2.1) 05/23/17 05/22/17 Range/Units 05:37 22:53 WBC (4.8-10.8) K/uL RBC (3.80-5.20) Mil/uL Hgb (11.0-16.0) g/dL Hct (34.0-47.0) % MCV (81.0-99.0) fL MCH (27.0-31.0) pg MCHC (33.0-37.0) g/dL RDW (11.5-14.5) % Plt Count (130-400) K/uL MPV (7.2-11.7) fL Neut % (Auto) (50.0-75.0) % Lymph % (Auto) (20.0-40.0) % Kaufman % (Auto) (0.0-10.0) % Eos % (Auto) (0.0-4.0) % Baso % (Auto) (0.0-2.0) % Neut # (1.8-7.0) K/uL Lymph # (1.0-4.3) K/uL [place]man # (0.0-0.8) K/uL Eos # (0.0-0.7) K/uL Baso # (0.0-0.2) K/uL Neutrophils % (Manual) (50-75) % Band Neutrophils % (0-2) % Lymphocytes % (Manual) (20-40) % Monocytes % (Manual) (0-10) % Eosinophils % (Manual) (0-4) % Toxic Granulation Platelet Estimate (NORMAL) Polychromasia Hypochromasia (manual) Anisocytosis (manual) Puncture Site Rb pCO2 51 H (35-45) mm/Hg pO2 82 (80-100) mm/Hg HCO3 34.0 H (21-28) mmol/L ABG pH 7.47 H (7.35-7.45) ABG Total CO2 38.7 H (22-28) mmol/L ABG O2 Saturation 97.9 (95-98) % ABG Base Excess 11.7 H (-2.0-3.0) mmol/L ABG Hemoglobin 11.6 L (11.7-17.4) g/dL ABG Carboxyhemoglobin 1.6 H (0.5-1.5) % POC ABG HHb (Measured) 2.0 (0.0-5.0) % ABG Methemoglobin 1.1 (0.0-3.0) % Sj Test Na A-a O2 Difference 282.0 mm/Hg Respiratory Index 3.4 Hgb O2 Saturation 95.3 (95.0-98.0) % Vent Mode Prvc Mechanical Rate 16 FiO2 60.0 % Tidal Volume 450 PEEP 5 Sodium (132-148) mmol/L Potassium (3.6-5.2) mmol/L Chloride (98-107) mmol/L Carbon Dioxide (22-30) mmol/L Anion Gap (10-20) BUN (7-17) mg/dL Creatinine (0.7-1.2) MG/DL Est GFR ( Amer) Est GFR (Non-Af Amer) Random Glucose (65-105) mg/dL Calcium (8.6-10.4) mg/dl Phosphorus (2.5-4.5) mg/dL Magnesium (1.6-2.3) mg/dL Iron (37-170) ug/dL TIBC (250-450) ug/dL % Saturation (20-55) Ferritin ng/mL Total Bilirubin (0.2-1.3) mg/dL AST (14-36) U/L ALT (9-52) U/L Alkaline Phosphatase (38-126) U/L Troponin I 0.6120 H* (0.00-0.120) ng/mL Total Protein (6.3-8.3) g/dL Albumin (3.5-5.0) g/dL Globulin (2.2-3.9) gm/dL Albumin/Globulin Ratio (1.0-2.1) Laboratory Results - last 24 hr 05/22/17 05/23/17 05/23/17 22:53 05:37 06:12 WBC RBC Hgb Hct MCV MCH MCHC RDW Plt Count MPV Neut % (Auto) Lymph % (Auto) [place]auf[place] % (Auto) Eos % (Auto) Baso % (Auto) Neut # Lymph # [place] # Eos # Baso # Neutrophils % (Manual) Band Neutrophils % Lymphocytes % (Manual) Monocytes % (Manual) Eosinophils % (Manual) Toxic Granulation Platelet Estimate Polychromasia Hypochromasia (manual) Anisocytosis (manual) Puncture Site Rb pCO2 51 H pO2 82 HCO3 34.0 H ABG pH 7.47 H ABG Total CO2 38.7 H ABG O2 Saturation 97.9 ABG Base Excess 11.7 H ABG Hemoglobin 11.6 L ABG Carboxyhemoglobin 1.6 H POC ABG HHb (Measured) 2.0 ABG Methemoglobin 1.1 Sj Test Na A-a O2 Difference 282.0 Respiratory Index 3.4 Hgb O2 Saturation 95.3 Vent Mode Prvc Mechanical Rate 16 FiO2 60.0 Tidal Volume 450 PEEP 5 Sodium 141 Potassium 5.0 Chloride 96 L Carbon Dioxide 35 H Anion Gap 15 BUN 38 H Creatinine 0.6 L Est GFR ( Amer) > 60 Est GFR (Non-Af Amer) > 60 Random Glucose 154 H Calcium 9.0 Phosphorus 2.6 Magnesium 2.0 Iron TIBC % Saturation Ferritin 9.3 Total Bilirubin 0.7 AST 25 ALT 29 Alkaline Phosphatase 93 Troponin I 0.6120 H* 0.5580 H* Total Protein 6.8 Albumin 3.3 L Globulin 3.4 Albumin/Globulin Ratio 1.0 05/23/17 05/23/17 06:12 06:12 WBC 13.2 H RBC 4.42 Hgb 12.0 Hct 37.9 MCV 85.6 MCH 27.1 MCHC 31.6 L RDW 16.0 H Plt Count 217 MPV 7.7 Neut % (Auto) 90.0 H Lymph % (Auto) 6.8 L [place] % (Auto) 3.1 Eos % (Auto) 0.0 Baso % (Auto) 0.1 Neut # 11.9 H Lymph # 0.9 L [place] # 0.4 Eos # 0.0 Baso # 0.0 Neutrophils % (Manual) 86 H Band Neutrophils % 1 Lymphocytes % (Manual) 7 L Monocytes % (Manual) 5 Eosinophils % (Manual) 1 Toxic Granulation Present Platelet Estimate Normal Polychromasia Slight Hypochromasia (manual) Slight Anisocytosis (manual) Slight Puncture Site pCO2 pO2 HCO3 ABG pH ABG Total CO2 ABG O2 Saturation ABG Base Excess ABG Hemoglobin ABG Carboxyhemoglobin POC ABG HHb (Measured) ABG Methemoglobin Sj Test A-a O2 Difference Respiratory Index Hgb O2 Saturation Vent Mode Mechanical Rate FiO2 Tidal Volume PEEP Sodium Potassium Chloride Carbon Dioxide Anion Gap BUN Creatinine Est GFR ( Amer) Est GFR (Non-Af Amer) Random Glucose Calcium Phosphorus Magnesium Iron 14 L TIBC 417 % Saturation 3 L Ferritin Total Bilirubin AST ALT Alkaline Phosphatase Troponin I Total Protein Albumin Globulin Albumin/Globulin Ratio
--- NOTE | 2017-05-23 19:35 | CP.PCM.CON ---
History of Present Illness - History of Present Illness History of Present Illness: 76 year old female with history of HTN, COPD, asthma, dementia, presented with shortness of breath and worsening mental status with leukocytosis and anemia. The patient is currently on bipap and I am unable to obtain further history. Review of the patient medical records shows he [place] [facility] [place] and required breathing treatments. Past medical, surgical, family, social history cannot be obtained from the patient. Allergies: Per documentation NKA Review of systems cannot be obtained. Past Patient History - Past Medical History & Family History Past Medical History?: Yes - Past Social History Smoking Status: Never Smoked - CARDIAC Hx Hypertension: Yes - PULMONARY Hx Asthma: Yes Hx Chronic Obstructive Pulmonary Disease (COPD): Yes - NEUROLOGICAL Hx Dementia: Yes - RENAL Hx Chronic Kidney Disease: No - ENDOCRINE/METABOLIC Hx Endocrine Disorders: No - HEMATOLOGICAL/ONCOLOGICAL Hx Blood Disorders: No - INTEGUMENTARY Hx Dermatological Problems: No - MUSCULOSKELETAL/RHEUMATOLOGICAL Hx Degenerative Joint Disease: Yes Hx Osteoarthritis: Yes - GASTROINTESTINAL Hx Gastrointestinal Disorders: No - GENITOURINARY/GYNECOLOGICAL Hx Genitourinary Disorders: No - PSYCHIATRIC Hx Substance Use: No - SURGICAL HISTORY Hx Surgeries: Yes Hx Cataract Extraction: Yes Hx Herniorrhaphy: Yes (Umbilical) - ANESTHESIA Hx Anesthesia: Yes Hx Anesthesia Reactions: No Meds Allergies/Adverse Reactions: Allergies Allergy/AdvReac Type Severity Reaction Status Date / Time No Known Allergies Allergy Unverified 05/22/17 09:31 - Medications Medications: Current Medications Albuterol/Ipratropium (Duoneb 3 Mg/0.5 Mg (3 Ml) Ud) 3 ml INH RQ6 [facility] Last Admin: 05/23/17 14:10 Dose: 3 ml Aspirin (Aspirin) 325 mg PO DAILY [facility] Last Admin: 05/23/17 09:18 Dose: 325 mg Diltiazem HCl (Cardizem) 30 mg PO QID [facility] Last Admin: 05/23/17 17:11 Dose: 30 mg Dorzolamide HCl (Trusopt) 10 ml OU TID [facility] Last Admin: 05/23/17 17:11 Dose: 1 drop Enalapril Maleate (Vasotec) 10 mg PO DAILY [facility] Last Admin: 05/23/17 09:18 Dose: 10 mg Enoxaparin Sodium (Lovenox) 120 mg SC Q12 [facility] Ferrous Sulfate (Feosol Liq) 300 mg PO DAILY [facility] Propofol (Diprivan) 1,000 mg in 100 mls @ 3.742 mls/hr IV .Q24H PRN; Protocol; 5 MCG/KG/MIN PRN Reason: Agitation Last Admin: 05/23/17 17:12 Dose: 30 mcg/kg/min, 22.453 mls/hr Methylprednisolone (Solu-Medrol) 60 mg IV Q8H [facility] Last Admin: 05/23/17 13:12 Dose: 60 mg Montelukast Sodium (Singulair) 10 mg PO DAILY [facility] Last Admin: 05/23/17 09:18 Dose: 10 mg Multivitamins (Hexavitamin) 1 tab PO DAILY [facility] Last Admin: 05/23/17 09:18 Dose: 1 tab Pantoprazole Sodium (Protonix Susp) 40 mg NG DAILY [facility] Last Admin: 05/23/17 09:24 Dose: 40 mg Rosuvastatin Calcium (Crestor) 10 mg PO HS [facility] Last Admin: 05/22/17 21:20 Dose: 10 mg Torsemide (Demadex) 20 mg PO DAILY [facility] Last Admin: 05/23/17 09:19 Dose: 20 mg Physical Exam - Head Exam Head Exam: ATRAUMATIC - Eye Exam Eye Exam: Normal appearance - ENT Exam ENT Exam: Mucous Membranes Dry - Respiratory Exam Respiratory Exam: Decreased Breath Sounds - Cardiovascular Exam Cardiovascular Exam: +S1, +S2 - GI/Abdominal Exam GI & Abdominal Exam: Normal Bowel Sounds - Neurological Exam Neurological exam: Altered - Skin Skin Exam: Warm Results - Vital Signs Recent Vital Signs: Last Vital Signs Temp 97.3 F L 05/23/17 16:00 Pulse 78 05/23/17 19:00 Resp 15 05/23/17 19:00 BP 126/50 L 05/23/17 19:00 Pulse Ox 95 05/23/17 19:00 - Labs Result Diagrams: 05/31/17 06:19 05/31/17 06:19 Labs: Laboratory Results - last 24 hr 05/22/17 05/23/17 05/23/17 22:53 05:37 06:12 WBC RBC Hgb Hct MCV MCH MCHC RDW Plt Count MPV Neut % (Auto) Lymph % (Auto) Hughes % (Auto) Eos % (Auto) Baso % (Auto) Neut # Lymph # Hughes # Eos # Baso # Neutrophils % (Manual) Band Neutrophils % Lymphocytes % (Manual) Monocytes % (Manual) Eosinophils % (Manual) Toxic Granulation Platelet Estimate Polychromasia Hypochromasia (manual) Anisocytosis (manual) Puncture Site Rb pCO2 51 H pO2 82 HCO3 34.0 H ABG pH 7.47 H ABG Total CO2 38.7 H ABG O2 Saturation 97.9 ABG Base Excess 11.7 H ABG Hemoglobin 11.6 L ABG Carboxyhemoglobin 1.6 H POC ABG HHb (Measured) 2.0 ABG Methemoglobin 1.1 Sj Test Na A-a O2 Difference 282.0 Respiratory Index 3.4 Hgb O2 Saturation 95.3 Vent Mode Prvc Mechanical Rate 16 FiO2 60.0 Tidal Volume 450 PEEP 5 Sodium 141 Potassium 5.0 Chloride 96 L Carbon Dioxide 35 H Anion Gap 15 BUN 38 H Creatinine 0.6 L Est GFR ( Amer) > 60 Est GFR (Non-Af Amer) > 60 Random Glucose 154 H Calcium 9.0 Phosphorus 2.6 Magnesium 2.0 Iron TIBC % Saturation Ferritin 9.3 Total Bilirubin 0.7 AST 25 ALT 29 Alkaline Phosphatase 93 Troponin I 0.6120 H* 0.5580 H* Total Protein 6.8 Albumin 3.3 L Globulin 3.4 Albumin/Globulin Ratio 1.0 05/23/17 05/23/17 06:12 06:12 WBC 13.2 H RBC 4.42 Hgb 12.0 Hct 37.9 MCV 85.6 MCH 27.1 MCHC 31.6 L RDW 16.0 H Plt Count 217 MPV 7.7 Neut % (Auto) 90.0 H Lymph % (Auto) 6.8 L [place] % (Auto) 3.1 Eos % (Auto) 0.0 Baso % (Auto) 0.1 Neut # 11.9 H Lymph # 0.9 L [place] # 0.4 Eos # 0.0 Baso # 0.0 Neutrophils % (Manual) 86 H Band Neutrophils % 1 Lymphocytes % (Manual) 7 L Monocytes % (Manual) 5 Eosinophils % (Manual) 1 Toxic Granulation Present Platelet Estimate Normal Polychromasia Slight Hypochromasia (manual) Slight Anisocytosis (manual) Slight Puncture Site pCO2 pO2 HCO3 ABG pH ABG Total CO2 ABG O2 Saturation ABG Base Excess ABG Hemoglobin ABG Carboxyhemoglobin POC ABG HHb (Measured) ABG Methemoglobin Sj Test A-a O2 Difference Respiratory Index Hgb O2 Saturation Vent Mode Mechanical Rate FiO2 Tidal Volume PEEP Sodium Potassium Chloride Carbon Dioxide Anion Gap BUN Creatinine Est GFR ( Amer) Est GFR (Non-Af Amer) Random Glucose Calcium Phosphorus Magnesium Iron 14 L TIBC 417 % Saturation 3 L Ferritin Total Bilirubin AST ALT Alkaline Phosphatase Troponin I Total Protein Albumin Globulin Albumin/Globulin Ratio Assessment & Plan (1) Elevated WBCs Assessment and Plan: on antibiotics Status: Acute (2) Anemia Assessment and Plan: will check ferritin, retic count, b12, folate, FOBT to further characterize. Thank you for this interesting consult. Status: Acute
[2017-05-23] MEDS: Enoxaparin 120 mg Syringe SC SCH (21:45)
[2017-05-24] MEDS: Propofol 10 mg/ml 1,000 MG/100 ML VIAL IV PRN ×5 (00:36→22:48)
[2017-05-24] MEDS: Albuterol-Ipratrop 3 mg / 0.5 (3 ml) UD INH SCH ×4 (01:32→20:06)
[2017-05-24 06:05] LABS: ABG ALLEN TEST POS; ABG MECHANICAL RATE 16; ARTERIAL BLOOD GAS MODE A/C; ARTERIAL BLOOD HGB O2 SAT 93.5 % (95.0-98.0); ATERIAL BLOOD GAS PEEP 5; CARBOXYHEMOGLOBIN 1.7 % (0.5-1.5); DRAW SITE RRADIAL; HHB 3.7 % (0.0-5.0)
[2017-05-24 06:48] LABS: BASO % 0.2 % (0.0-2.0); HEMATOCRIT 38.9 % (34.0-47.0); LYMPH # 0.7 K/uL (1.0-4.3); LYMPH % 4.1 % (20.0-40.0); MEAN CELL VOLUME 84.6 fL (81.0-99.0); MEAN CORPUSCULAR HEMOGLOBIN 26.5 pg (27.0-31.0); MEAN CORPUSCULAR HGB CONC 31.3 g/dL (33.0-37.0); MEAN PLATELET VOLUME 7.9 fL (7.2-11.7); MONO # 0.8 K/uL (0.0-0.8); NRBC % 0.4 % (0.0-2.0); PLATELET COUNT 250 K/uL (130-400); RED CELL DISTRIBUTION WIDTH 16.8 % (11.5-14.5); WHITE BLOOD COUNT 16.6 K/uL (4.8-10.8)
[2017-05-24 07:02] LABS: CHLORIDE 94 mmol/L (98-107); POTASSIUM 4.3 mmol/L (3.6-5.2); SODIUM 135 mmol/L (132-148)
[2017-05-24 07:05] LABS: BLOOD UREA NITROGEN 42 mg/dL (7-17); CALCIUM 8.6 mg/dl (8.6-10.4); CARBON DIOXIDE 33 mmol/L (22-30); GFR AFRICAN-AMERICAN > 60; GLUCOSE,RANDOM 143 mg/dL (65-105)
[2017-05-24 08:44] LABS: NEUTROPHIL 91 % (50-75); NUCLEATED RED BLOOD CELL 1 % (0-0); TOTAL CELLS COUNTED 100
[2017-05-24 08:45] LABS: LARGE PLATELETS PRESENT
[2017-05-24] MEDS ORDERED: Ferrous Sulfate 300 mg/5 mL Liq UD PO SCH (10:00)
[2017-05-24] MEDS: Enoxaparin 120 mg Syringe SC SCH ×2 (10:02→22:46)
[2017-05-24] MEDS: Multiple Vitamins Tab PO SCH (10:02)
[2017-05-24] MEDS: Dorzolamide 2% Opht Sol 10ml OU SCH ×3 (10:03→18:10)
[2017-05-24] MEDS: Pantoprazole 40 mg Susp UD NG SCH (10:03)
--- NOTE | 2017-05-24 11:19 | RAD ---
HISTORY: Intubated/CHF COMPARISON: 05/22/2017 FINDINGS: LUNGS: No active pulmonary disease. PLEURA: Probable small bilateral pleural effusion. No pneumothorax. CARDIOVASCULAR: Cardiomegaly. No congestive change. ET tube and NG tube unchanged. OSSEOUS STRUCTURES: No significant abnormalities. VISUALIZED UPPER ABDOMEN: Normal. OTHER FINDINGS: None. IMPRESSION: Probable small bilateral pleural effusion. ET tube and NG tube unchanged.
--- NOTE | 2017-05-24 11:24 | CP.PCM.CON ---
History of Present Illness - History of Present Illness History of Present Illness: Reason for consultation: respiratory failure requiring ventilatory support 76-year-old female with history of COPD, hypertension, dementia who presented to emergency room with 3 day hstory off shortness of breath which progressively got worse. In the emergency patient was placed on BiPAP and was intubated in the ICU for worsening hypercapnia and lethargy. patient remains intubated on ventilatory support with FiO2 60%.. Patient response to vocal command by opening eyes and is tolerating feeding PMHx: COPD (2nd hand smoke); asthma; cardiomegaly; dementia PSHx: cataracts; abdominal hernia about 30 years ago; bilateral tubal ligation Home Medications: Brinzolamide 15ml OP bid Budesonide/formoterol 1 aer IH bid diltiazem 120mg po daily donepezil 5mg po hs enalapril 1mg po daily esomeprazole 40mg po daily hydrochlorothiazide 12.5mg po daily metoclopramide 10mg po tid montelukast 10mg po daily multivitamin 1 tab po daily rosuvastatin 10mg po hs Allergies: NKDA FamHx: mother, , unspecified; father, from heart issues; son with asthma SocialHx: denies tobacco, denies etoh, denies illicit drug use, lives alone w/ help of home care giver Review of Systems - Review of Systems Systems not reviewed;Unavailable: Intubated Past Patient History - Past Medical History & Family History Past Medical History?: Yes - Past Social History Smoking Status: Never Smoked - CARDIAC Hx Hypertension: Yes - PULMONARY Hx Asthma: Yes Hx Chronic Obstructive Pulmonary Disease (COPD): Yes - NEUROLOGICAL Hx Dementia: Yes - RENAL Hx Chronic Kidney Disease: No - ENDOCRINE/METABOLIC Hx Endocrine Disorders: No - HEMATOLOGICAL/ONCOLOGICAL Hx Blood Disorders: No - INTEGUMENTARY Hx Dermatological Problems: No - MUSCULOSKELETAL/RHEUMATOLOGICAL Hx Degenerative Joint Disease: Yes Hx Osteoarthritis: Yes - GASTROINTESTINAL Hx Gastrointestinal Disorders: No - GENITOURINARY/GYNECOLOGICAL Hx Genitourinary Disorders: No - PSYCHIATRIC Hx Substance Use: No - SURGICAL HISTORY Hx Surgeries: Yes Hx Cataract Extraction: Yes Hx Herniorrhaphy: Yes (Umbilical) - ANESTHESIA Hx Anesthesia: Yes Hx Anesthesia Reactions: No Meds Allergies/Adverse Reactions: Allergies Allergy/AdvReac Type Severity Reaction Status Date / Time No Known Allergies Allergy Unverified 05/22/17 09:31 - Medications Medications: Current Medications Albuterol/Ipratropium (Duoneb 3 Mg/0.5 Mg (3 Ml) Ud) 3 ml INH RQ6 [facility] Last Admin: 05/24/17 08:17 Dose: 3 ml Aspirin (Aspirin) 325 mg PO DAILY [facility] Last Admin: 05/24/17 10:02 Dose: 325 mg Diltiazem HCl (Cardizem) 30 mg PO QID [facility] Last Admin: 05/24/17 10:02 Dose: 30 mg Dorzolamide HCl (Trusopt) 10 ml OU TID [facility] Last Admin: 05/24/17 10:03 Dose: 1 drop Enalapril Maleate (Vasotec) 10 mg PO DAILY [facility] Last Admin: 05/24/17 10:02 Dose: 10 mg Enoxaparin Sodium (Lovenox) 120 mg SC Q12 [facility] Last Admin: 05/24/17 10:02 Dose: 120 mg Ferrous Sulfate (Feosol Liq) 300 mg PO DAILY [facility] Last Admin: 05/24/17 10:06 Dose: 300 mg Propofol (Diprivan) 1,000 mg in 100 mls @ 3.742 mls/hr IV .Q24H PRN; Protocol; 5 MCG/KG/MIN PRN Reason: Agitation Last Admin: 05/24/17 10:50 Dose: 30 mcg/kg/min, 22.453 mls/hr Methylprednisolone (Solu-Medrol) 60 mg IV Q8H [facility] Last Admin: 05/24/17 05:51 Dose: 60 mg Montelukast Sodium (Singulair) 10 mg PO DAILY [facility] Last Admin: 05/24/17 10:03 Dose: 10 mg Multivitamins (Hexavitamin) 1 tab PO DAILY [facility] Last Admin: 05/24/17 10:02 Dose: 1 tab Pantoprazole Sodium (Protonix Susp) 40 mg NG DAILY [facility] Last Admin: 05/24/17 10:03 Dose: 40 mg Rosuvastatin Calcium (Crestor) 10 mg PO HS [facility] Last Admin: 05/23/17 21:45 Dose: 10 mg Torsemide (Demadex) 20 mg PO DAILY [facility] Last Admin: 05/24/17 10:04 Dose: 20 mg Physical Exam - Head Exam Head Exam: ATRAUMATIC, NORMOCEPHALIC - ENT Exam ENT Exam: Mucous Membranes Moist - Neck Exam Neck exam: Positive for: Normal Inspection - Respiratory Exam Respiratory Exam: Decreased Breath Sounds - Cardiovascular Exam Cardiovascular Exam: REGULAR RHYTHM - GI/Abdominal Exam GI & Abdominal Exam: Normal Bowel Sounds, Soft - Extremities Exam Extremities exam: Positive for: pedal edema Results - Vital Signs Recent Vital Signs: Last Vital Signs Temp 98.6 F 05/24/17 08:00 Pulse 89 05/24/17 10:00 Resp 16 05/24/17 10:00 BP 143/71 05/24/17 10:02 Pulse Ox 94 L 05/24/17 10:00 - Labs Result Diagrams: 05/24/17 06:40 05/24/17 06:40 Labs: Laboratory Results - last 24 hr 05/24/17 05/24/17 05/24/17 05:20 06:40 06:40 WBC 16.6 H RBC 4.60 Hgb 12.2 Hct 38.9 MCV 84.6 MCH 26.5 L MCHC 31.3 L RDW 16.8 H Plt Count 250 MPV 7.9 Neut % (Auto) 90.7 H Lymph % (Auto) 4.[address] [place] % (Auto) 5.0 Eos % (Auto) 0.0 Baso % (Auto) 0.2 Neut # 15.1 H Lymph # 0.[address] [place] # 0.8 Eos # 0.0 Baso # 0.0 Neutrophils % (Manual) 91 H Lymphocytes % (Manual) 4 L Monocytes % (Manual) 5 Nucleated RBC % 1 H Platelet Estimate Normal Large Platelets Present Polychromasia Slight Hypochromasia (manual) Slight Anisocytosis (manual) Slight Puncture Site Rradial pCO2 56 H pO2 68 L HCO3 33.9 H ABG pH 7.44 ABG Total CO2 39.7 H ABG O2 Saturation 96.2 ABG Base Excess 11.6 H ABG Hemoglobin 13.3 ABG Carboxyhemoglobin 1.7 H POC ABG HHb (Measured) 3.7 ABG Methemoglobin 1.0 Sj Test Pos A-a O2 Difference 290.0 Respiratory Index 4.3 Hgb O2 Saturation 93.5 L Vent Mode A/c Mechanical Rate 16 FiO2 60.0 Tidal Volume 450 PEEP 5 Sodium 135 Potassium 4.3 Chloride 94 L Carbon Dioxide 33 H Anion Gap 12 BUN 42 H Creatinine 0.6 L Est GFR ( Amer) > 60 Est GFR (Non-Af Amer) > 60 Random Glucose 143 H Calcium 8.6 Assessment & Plan (1) Acute respiratory failure with hypoxia and hypercapnia Status: Acute Comment: most likely secondary to COPD exacerbation. Rule out obesity hypoventilation syndrome. Cardiac workup for CHF and elevated troponin. Reduce FiO2 as tolerated. Continue nebulizer treatment and reduce steroids (2) Atrial fibrillation, new onset Status: Acute (3) COPD exacerbation Status: Acute
--- NOTE | 2017-05-24 15:34 | CP.PCM.PN ---
Subjective - Date & Time of Evaluation Date of Evaluation: 05/24/17 Time of Evaluation: 15:35 - Subjective Subjective: Hospitalist Progress Note Patient was seen and examined at 3:35 PM 05/24/17 Patient is a 76 year old female with PMH of COPD, Asthma, HTN, Cardiomegaly, Dementia who presented to [facility] ER on 05/22/17 with SOB for three days. Per son, patient had associated hypersomnolence, weakness and fatigue for three days. Her homemaker noted increased memory loss as well. She was found to be in Respiratory Acidosis and placed on BiPAP but then ended up being intubated and on ventilator. She was also found to have elevated Troponins and in Atrial Fibrillation (questionable whether this is new or not). Considering the increased memory loss over the past few days, a CT Head was needed to make sure that there was NO acute bleed and this study did not indicate any acute pathology. Therefore therapeutic Lovenox was started. Echocardiogram was also done and this shows EF estimated at 60-65% with normal LVSF, hypokinesis in the basal anteroseptal wall, and moderate Pulmonary HTN. Patient's PMD Dr. Costa was updated as to patient status on 05/23/17. Please see Assessment and Plans below for further details. FULL ROS not possible as patient is on intubated and on vent. However she is arousable today and shook her head "NO" to chest pain, abdominal pain, headache , changes in vision, changes in hearing, n/v, dizziness. She shook her head to "YES" to soreness in throat Physical Exam - Head Exam Head Exam: ATRAUMATIC, NORMAL INSPECTION - Eye Exam Eye Exam: EOMI: patient was able to follow my light Pupil Exam: PERRLA - ENT Exam Additional comments: Pharynx can't be examined due to intubation and NG tubes - Neck Exam Neck exam: Negative for: Lymphadenopathy and Negative for: Thyromegaly - Respiratory Exam Respiratory Exam: Clear to Auscultation Bilateral, NORMAL BREATHING PATTERN. absent: Rales, Rhonchi, Wheezes - Cardiovascular Exam Cardiovascular Exam: REGULAR RHYTHM, +S1, +S2. absent: JVD Additional comments: No hepatojugular reflex - GI/Abdominal Exam GI & Abdominal Exam: Normal Bowel Sounds, Soft. absent: Distended, Tenderness Additional comments: central obesity, can't palpate liver and spleen - Rectal Exam Rectal Exam: Deferred - Extremities Exam Extremities exam: Positive for: mild pedal edema, pedal pulses present Additional comments: trace edema b/l legs, pulses presents in all extremities, varicose veins, capillary refill is 2 seconds, warm, no cyanosis - Neurological Exam Additional comments: FULL CN exam could not be performed and muscle strength testing could not be performed secondary to intubation and on vent Assessment & Plan (1) Respiratory acidosis Assessment and Plan: likely 2/2 COPD exacerbation - Currently intubated, on vent, and diprivan drip - I discussed patient with Environmental Field Professional Dr. Camejo 05/24/17 and patient will be for trial of extubation 05/25/17 Status: Acute (2) COPD exacerbation/Moderate Pulmonary HTN Assessment and Plan: - Solumedrol 60mg iv q8 - Singulair 10mg po daily - Ipratropium q6h prn for sob - Con't home med symbicort 160-4.5 mcg inh bid ONCE the Solumedrol is discontinued - Environmental Field Professional Dr. Camejo Status: Acute (3) Elevated troponin Assessment and Plan: - Troponins remain elevated and she was started on Therapeutic Lovenox - No further cardiac workup/intervention at this time as per Cardiology Dr. Hart Status: Acute (4) Atrial fibrillation, new onset Assessment and Plan: - [id number] score is 4 - Currently patient is on therapuetic Lovenox - ASA 81 mg NG 1x/day Status: Acute (5) Cardiomegaly with Diastolic Heart Failure Assessment and Plan: CXR shows cardiomegaly and ProBNP elevated 5390 - 2D ECHO: EF estimated at 60-65% with normal LVSF, hypokinesis in the basal anteroseptal wall, and moderate Pulmonary HTN Status: Acute (6) Elevated WBCs Assessment and Plan: Could be stress response; afebrile - Blood Culture 05/22/17 is negative to date - Urine Culture 05/22/17 does not show any growth Status: Acute (7) Abnormal RBC indices Assessment and Plan: - Iron level is low and patient may have the beginning of Iron Deficiency Anemia. Feosol 300 mg solution 1x/day via NG ordered - Await further recommendations from [facility] [employer]er Dr. Butch Mills Status: Acute (8) History of hypertension Assessment and Plan: - torsemide 20mg po daily - con't home med HCTZ 12.5mg po daily - con't home med Cardizem 120mg po daily - con't home med Enalapril 10mg po daily Status: Acute (9) History of hyperlipidemia Assessment and Plan: - Con't home med Rosuvastatin 10mg PO HS Status: Acute (10) Change in mental state Assessment and Plan: Memory loss as per home health care respiratory therapist - CT head w/o contrast does not show any acute pathology Status: Acute (11) History of dementia Assessment and Plan: - Con't home med Donepezil 5mg po hs Status: Acute (12) History of gastroesophageal reflux (GERD) Assessment and Plan: - Con't home med esomeprazole 40mg po daily Status: Acute (13) History of glaucoma Assessment and Plan: - Dorzolamide 2% 10ml ou tid Status: Acute (14) Prophylactic measure Assessment and Plan: Therapeutic Lovenox GI: con't home med Reglan 10mg po tid; con't home med Esomeprazole 40mg po daily (however on Protonix 40 mg NG 1x/day as Esomeprazole not carried by our pharmacy) Multivitamin Pulmicore Feedings via NG at 30 ml/hour Status: Acute Yo Torres D.O. Objective - Vital Signs/Intake and Output Vital Signs (last 24 hours): Temp Pulse Resp BP Pulse Ox 97.7 F 101 H 20 159/70 H 96 05/24/17 12:00 05/24/17 15:00 05/24/17 15:00 05/24/17 15:00 05/24/17 15:00 Intake and Output: 05/24/17 05/24/17 06:59 18:59 Intake Total 1015.0 624.5 Output Total 535 905 Balance 480.0 -280.5 - Medications Medications: Current Medications Albuterol/Ipratropium (Duoneb 3 Mg/0.5 Mg (3 Ml) Ud) 3 ml INH RQ6 [facility] Last Admin: 05/24/17 14:29 Dose: 3 ml Aspirin (Aspirin) 325 mg PO DAILY [facility] Last Admin: 05/24/17 10:02 Dose: 325 mg Diltiazem HCl (Cardizem) 30 mg PO QID [facility] Last Admin: 09/10/17 13:48 Dose: 30 mg Dorzolamide HCl (Trusopt) 10 ml OU TID [facility] Last Admin: 05/24/17 13:48 Dose: 1 drop Enalapril Maleate (Vasotec) 10 mg PO DAILY [facility] Last Admin: 05/24/17 10:02 Dose: 10 mg Enoxaparin Sodium (Lovenox) 120 mg SC Q12 [facility] Last Admin: 05/24/17 10:02 Dose: 120 mg Ferrous Sulfate (Feosol Liq) 300 mg PO DAILY [facility] Last Admin: 05/24/17 10:06 Dose: 300 mg Propofol (Diprivan) 1,000 mg in 100 mls @ 3.742 mls/hr IV .Q24H PRN; Protocol; 5 MCG/KG/MIN PRN Reason: Agitation Last Titration: 05/24/17 11:00 Dose: 25 mcg/kg/min, 18.711 mls/hr Methylprednisolone (Solu-Medrol) 60 mg IV Q8H [facility] Last Admin: 05/24/17 13:48 Dose: 60 mg Montelukast Sodium (Singulair) 10 mg PO DAILY [facility] Last Admin: 05/24/17 10:03 Dose: 10 mg Multivitamins (Hexavitamin) 1 tab PO DAILY [facility] Last Admin: 05/24/17 10:02 Dose: 1 tab Pantoprazole Sodium (Protonix Susp) 40 mg NG DAILY [facility] Last Admin: 05/24/17 10:03 Dose: 40 mg Rosuvastatin Calcium (Crestor) 10 mg PO HS [facility] Last Admin: 05/23/17 21:45 Dose: 10 mg Torsemide (Demadex) 20 mg PO DAILY [facility] Last Admin: 05/24/17 10:04 Dose: 20 mg - Labs Labs: 05/24/17 06:40 05/24/17 06:40
--- NOTE | 2017-05-24 16:34 | CP.CCUPN ---
CCU Subjective - Physician Review Events Since Last Encounter (Free Text): 05/24/17 16:34 76-year-old female with a COPD asthma hypertension atrial fibrillation and dementia admitted with the shortness of breath. Hypercapnic respiratory failure, patient was intubated. Currently on ventilator. Intensive care unit rounds were made with ICU nurses. Patient is still hypoxic, sedated at this time. Day 1 on ventilator. Clinical examination is unremarkable. Sedated. Responding to deep stimuli. Labs reviewed Atrial fibrillation noted. Started on anticoagulation. Currently started also feeding. Will taper the oxygen, patient is not ready for extubation. Bronchial dilators right antibiotic. We'll follow the patient CCU Objective - Vital Signs / Intake & Output Vital Signs (Last 4 hours): Vital Signs Pulse Resp BP Pulse Ox 05/24/17 15:00 101 H 20 159/70 H 96 05/24/17 14:00 72 17 146/62 96 05/24/17 13:00 75 16 141/56 L 96 Intake and Output (Last 8hrs): Intake & Output 05/24/17 05/24/17 05/24/17 06:59 14:59 22:59 Intake Total 605.0 575.6 48.9 Output Total 365 655 250 Balance 240.0 -79.4 -201.1 Weight 263 lb Intake: IV 200 100 Intake, IV Amount 165.0 135.6 18.9 left hand 165.0 135.6 18.9 Tube Feeding 240 240 30 Other 100 Output: Urine 365 655 250 Urethral (Saenz) 365 655 250 Stool 0 Other: # Bowel Movements 1 - Medications Active Medications: Active Medications Generic Name Dose Route Start Last Admin Trade Name Freq PRN Reason Stop Dose Admin Albuterol/Ipratropium 3 ml 05/23/17 14:00 05/24/17 14:29 Duoneb 3 Mg/0.5 Mg (3 Ml) Ud INH 3 ml RQ6 ALISA Administration Aspirin 325 mg 05/23/17 10:00 05/24/17 10:02 Aspirin PO 325 mg DAILY ALISA Administration Diltiazem HCl 30 mg 05/23/17 10:00 05/24/17 13:48 Cardizem PO 30 mg QID ALISA Administration Dorzolamide HCl 10 ml 05/22/17 18:00 05/24/17 13:48 Trusopt OU 1 drop TID ALISA Administration Enalapril Maleate 10 mg 05/23/17 10:00 05/24/17 10:02 Vasotec PO 10 mg DAILY ALISA Administration Enoxaparin Sodium 120 mg 05/23/17 22:00 05/24/17 10:02 Lovenox SC 120 mg Q12 ALISA Administration Ferrous Sulfate 300 mg 05/24/17 10:00 05/24/17 10:06 Feosol Liq PO 300 mg DAILY ALISA Administration Propofol 1,000 mg in 100 mls @ 3.742 mls/hr 05/22/17 18:47 05/24/17 11:00 Diprivan IV 25 mcg/kg/min .Q24H PRN 18.711 mls/hr Agitation Titration Protocol 5 MCG/KG/MIN Methylprednisolone 60 mg 05/22/17 14:00 05/24/17 13:48 Solu-Medrol IV 60 mg Q8H ALISA Administration Montelukast Sodium 10 mg 05/23/17 10:00 05/24/17 10:03 Singulair PO 10 mg DAILY ALISA Administration Multivitamins 1 tab 05/22/17 13:45 05/24/17 10:02 Hexavitamin PO 1 tab DAILY ALISA Administration Pantoprazole Sodium 40 mg 05/23/17 10:00 05/24/17 10:03 Protonix Susp NG 40 mg DAILY ALISA Administration Rosuvastatin Calcium 10 mg 05/22/17 22:00 05/23/17 21:45 Crestor PO 10 mg HS ALISA Administration Torsemide 20 mg 05/23/17 10:00 05/24/17 10:04 Demadex PO 20 mg DAILY ALISA Administration - Patient Studies Lab Studies: Microbiology Studies 05/22/17 17:56 Urine Culture - Final Urine,Catheterized No Growth (<1,000 CFU/ML) 05/22/17 16:25 Blood Culture - Preliminary Blood-Venous NO GROWTH AFTER 24 HOURS 05/22/17 16:55 Blood Culture - Preliminary Blood-Venous NO GROWTH AFTER 24 HOURS 05/22/17 11:36 MRSA Culture (Admit) - Final Naris MRSA NOT DETECTED Lab Studies 05/24/17 05/24/17 05/24/17 Range/Units 06:40 06:40 05:20 WBC 16.6 H (4.8-10.8) K/uL RBC 4.60 (3.80-5.20) Mil/uL Hgb 12.2 (11.0-16.0) g/dL Hct 38.9 (34.0-47.0) % MCV 84.6 (81.0-99.0) fL MCH 26.5 L (27.0-31.0) pg MCHC 31.3 L (33.0-37.0) g/dL RDW 16.8 H (11.5-14.5) % Plt Count 250 (130-400) K/uL MPV 7.9 (7.2-11.7) fL Neut % (Auto) 90.7 H (50.0-75.0) % Lymph % (Auto) 4.1 L (20.0-40.0) % White % (Auto) 5.0 (0.0-10.0) % Eos % (Auto) 0.0 (0.0-4.0) % Baso % (Auto) 0.2 (0.0-2.0) % Neut # 15.1 H (1.8-7.0) K/uL Lymph # 0.7 L (1.0-4.3) K/uL White # 0.8 (0.0-0.8) K/uL Eos # 0.0 (0.0-0.7) K/uL Baso # 0.0 (0.0-0.2) K/uL Neutrophils % (Manual) 91 H (50-75) % Lymphocytes % (Manual) 4 L (20-40) % Monocytes % (Manual) 5 (0-10) % Nucleated RBC % 1 H (0-0) % Platelet Estimate Normal (NORMAL) Large Platelets Present Polychromasia Slight Hypochromasia (manual) Slight Anisocytosis (manual) Slight Puncture Site Rradial pCO2 56 H (35-45) mm/Hg pO2 68 L (80-100) mm/Hg HCO3 33.9 H (21-28) mmol/L ABG pH 7.44 (7.35-7.45) ABG Total CO2 39.7 H (22-28) mmol/L ABG O2 Saturation 96.2 (95-98) % ABG Base Excess 11.6 H (-2.0-3.0) mmol/L ABG Hemoglobin 13.3 (11.7-17.4) g/dL ABG Carboxyhemoglobin 1.7 H (0.5-1.5) % POC ABG HHb (Measured) 3.7 (0.0-5.0) % ABG Methemoglobin 1.0 (0.0-3.0) % Sj Test Pos A-a O2 Difference 290.0 mm/Hg Respiratory Index 4.3 Hgb O2 Saturation 93.5 L (95.0-98.0) % Vent Mode A/c Mechanical Rate 16 FiO2 60.0 % Tidal Volume 450 PEEP 5 Sodium 135 (132-148) mmol/L Potassium 4.3 (3.6-5.2) mmol/L Chloride 94 L (98-107) mmol/L Carbon Dioxide 33 H (22-30) mmol/L Anion Gap 12 (10-20) BUN 42 H (7-17) mg/dL Creatinine 0.6 L (0.7-1.2) MG/DL Est GFR ( Amer) > 60 Est GFR (Non-Af Amer) > 60 Random Glucose 143 H (65-105) mg/dL Calcium 8.6 (8.6-10.4) mg/dl Laboratory Results - last 24 hr 05/24/17 05/24/17 05/24/17 05:20 06:40 06:40 WBC 16.6 H RBC 4.60 Hgb 12.2 Hct 38.9 MCV 84.6 MCH 26.5 L MCHC 31.3 L RDW 16.8 H Plt Count 250 MPV 7.9 Neut % (Auto) 90.7 H Lymph % (Auto) 4.1 L White % (Auto) 5.0 Eos % (Auto) 0.0 Baso % (Auto) 0.2 Neut # 15.1 H Lymph # 0.7 L White # 0.8 Eos # 0.0 Baso # 0.0 Neutrophils % (Manual) 91 H Lymphocytes % (Manual) 4 L Monocytes % (Manual) 5 Nucleated RBC % 1 H Platelet Estimate Normal Large Platelets Present Polychromasia Slight Hypochromasia (manual) Slight Anisocytosis (manual) Slight Puncture Site Rradial pCO2 56 H pO2 68 L HCO3 33.9 H ABG pH 7.44 ABG Total CO2 39.7 H ABG O2 Saturation 96.2 ABG Base Excess 11.6 H ABG Hemoglobin 13.3 ABG Carboxyhemoglobin 1.7 H POC ABG HHb (Measured) 3.7 ABG Methemoglobin 1.0 Sj Test Pos A-a O2 Difference 290.0 Respiratory Index 4.3 Hgb O2 Saturation 93.5 L Vent Mode A/c Mechanical Rate 16 FiO2 60.0 Tidal Volume 450 PEEP 5 Sodium 135 Potassium 4.3 Chloride 94 L Carbon Dioxide 33 H Anion Gap 12 BUN 42 H Creatinine 0.6 L Est GFR ( Amer) > 60 Est GFR (Non-Af Amer) > 60 Random Glucose 143 H Calcium 8.6
--- NOTE | 2017-05-24 19:17 | CP.PCM.PN ---
Subjective - Date & Time of Evaluation Date of Evaluation: 05/24/17 Time of Evaluation: 08:00 - Subjective Subjective: Patient seen and evaluated On Ventilator Not in distress Responds to deep pain Objective - Vital Signs/Intake and Output Vital Signs (last 24 hours): Temp Pulse Resp BP Pulse Ox 98.6 F 91 H 24 139/62 94 L 05/24/17 16:00 05/24/17 18:00 05/24/17 18:00 05/24/17 18:00 05/24/17 18:00 Intake and Output: 05/24/17 05/25/17 18:59 06:59 Intake Total 871.2 Output Total 1365 Balance -493.8 - Medications Medications: Current Medications Albuterol/Ipratropium (Duoneb 3 Mg/0.5 Mg (3 Ml) Ud) 3 ml INH RQ6 [facility] Last Admin: 05/24/17 14:29 Dose: 3 ml Aspirin (Aspirin) 81 mg PO DAILY [facility] Diltiazem HCl (Cardizem) 30 mg PO QID [facility] Last Admin: 05/24/17 18:09 Dose: 30 mg Dorzolamide HCl (Trusopt) 10 ml OU TID [facility] Last Admin: 05/24/17 18:10 Dose: 1 drop Enalapril Maleate (Vasotec) 10 mg PO DAILY [facility] Last Admin: 05/24/17 10:02 Dose: 10 mg Enoxaparin Sodium (Lovenox) 120 mg SC Q12 [facility] Last Admin: 05/24/17 10:02 Dose: 120 mg Ferrous Sulfate (Feosol Liq) 300 mg PO DAILY [facility] Last Admin: 05/24/17 10:06 Dose: 300 mg Propofol (Diprivan) 1,000 mg in 100 mls @ 3.742 mls/hr IV .Q24H PRN; Protocol; 5 MCG/KG/MIN PRN Reason: Agitation Last Admin: 05/24/17 18:13 Dose: 25 mcg/kg/min, 18.711 mls/hr Methylprednisolone (Solu-Medrol) 60 mg IV Q8H [facility] Last Admin: 05/24/17 13:48 Dose: 60 mg Montelukast Sodium (Singulair) 10 mg PO DAILY [facility] Last Admin: 05/24/17 10:03 Dose: 10 mg Multivitamins (Hexavitamin) 1 tab PO DAILY [facility] Last Admin: 05/24/17 10:02 Dose: 1 tab Pantoprazole Sodium (Protonix Susp) 40 mg NG DAILY [facility] Last Admin: 05/24/17 10:03 Dose: 40 mg Rosuvastatin Calcium (Crestor) 10 mg PO HS [facility] Last Admin: 05/23/17 21:45 Dose: 10 mg Torsemide (Demadex) 20 mg PO DAILY [facility] Last Admin: 05/24/17 10:04 Dose: 20 mg - Labs Labs: 05/24/17 06:40 05/24/17 06:40 - Constitutional Appears: Non-toxic - Head Exam Head Exam: ATRAUMATIC, NORMAL INSPECTION - Eye Exam Eye Exam: EOMI - ENT Exam ENT Exam: Mucous Membranes Moist - Neck Exam Neck Exam: Normal Inspection - Respiratory Exam Respiratory Exam: Decreased Breath Sounds - Cardiovascular Exam Cardiovascular Exam: Irregular Rhythm, +S1, +S2 - GI/Abdominal Exam GI & Abdominal Exam: Soft, Normal Bowel Sounds - Extremities Exam Extremities Exam: Pedal Edema - Neurological Exam Additional comments: Intubated - Skin Skin Exam: Warm Assessment and Plan - Assessment and Plan (Free Text) Assessment: Assessment and Plan - Assessment and Plan (Free Text) Assessment: 1. Abnormal troponin Most likley secondary to CHF/COPD and hypoxemia ECHO: Normal EF Do not recommend additional cardiac work up ASA 325 chnaged to 81mg po daily 2. Diastolic CHF Lasix as needed 3. A fib: On Lovenix therapeutic dose retirement AC difficult due to dementia and fall risk 4, Resp failure/COPD on Ventilator Continue Cardizem, Lovenox therapeutic and Lasix for now Critical care time: 45 minutes
[2017-05-25] MEDS: Albuterol-Ipratrop 3 mg / 0.5 (3 ml) UD INH SCH ×4 (01:20→20:09)
[2017-05-25] MEDS: Propofol 10 mg/ml 1,000 MG/100 ML VIAL IV PRN ×6 (02:20→22:28)
[2017-05-25 06:16] LABS: ABG ALLEN TEST POS; ABG MECHANICAL RATE 16; ARTERIAL BLOOD GAS MODE A/C; ARTERIAL BLOOD HGB O2 SAT 93.8 % (95.0-98.0); ATERIAL BLOOD GAS PEEP 5; CARBOXYHEMOGLOBIN 1.7 % (0.5-1.5); DRAW SITE RRADIAL; HHB 3.3 % (0.0-5.0); METHEMOGLOBIN 1.1 % (0.0-3.0)
[2017-05-25 06:40] LABS: BASO % 0.2 % (0.0-2.0); HEMATOCRIT 38.6 % (34.0-47.0); LYMPH # 0.5 K/uL (1.0-4.3); LYMPH % 2.9 % (20.0-40.0); MEAN CELL VOLUME 83.5 fL (81.0-99.0); MEAN CORPUSCULAR HEMOGLOBIN 26.7 pg (27.0-31.0); MEAN PLATELET VOLUME 7.7 fL (7.2-11.7); MONO # 0.8 K/uL (0.0-0.8); MONO % 4.7 % (0.0-10.0); NRBC % 0.1 % (0.0-2.0); PLATELET COUNT 232 K/uL (130-400); RED CELL DISTRIBUTION WIDTH 16.5 % (11.5-14.5); WHITE BLOOD COUNT 17.1 K/uL (4.8-10.8)
[2017-05-25 06:43] LABS: CHLORIDE 99 mmol/L (98-107); POTASSIUM 3.9 mmol/L (3.6-5.2); SODIUM 141 mmol/L (132-148)
[2017-05-25 06:45] LABS: ALB/GLOB RATIO 1.1 (1.0-2.1); AST/SGOT 22 U/L (14-36); BILIRUBIN,TOTAL 0.7 mg/dL (0.2-1.3); CARBON DIOXIDE 33 mmol/L (22-30); GFR AFRICAN-AMERICAN > 60; TOTAL PROTEIN 6.3 g/dL (6.3-8.3)
[2017-05-25 06:46] LABS: ALKALINE PHOSPHATASE 72 U/L (38-126); ALT/SGPT 28 U/L (9-52); BLOOD UREA NITROGEN 40 mg/dL (7-17); CALCIUM 8.1 mg/dl (8.6-10.4); GLUCOSE,RANDOM 155 mg/dL (65-105); MAGNESIUM 2.2 mg/dL (1.6-2.3); PHOSPHOROUS 3.7 mg/dL (2.5-4.5)
[2017-05-25] MEDS: Acetylcysteine 20% Inhal Soln (4ml) INH SCH ×2 (07:05→20:09)
[2017-05-25 08:38] LABS: NEUTROPHIL 92 % (50-75); TOTAL CELLS COUNTED 100
[2017-05-25 08:39] LABS: LARGE PLATELETS PRESENT
[2017-05-25] MEDS: Multiple Vitamins Tab PO SCH (09:53)
[2017-05-25] MEDS: Enoxaparin 120 mg Syringe SC SCH ×2 (09:54→22:20)
[2017-05-25] MEDS: Dorzolamide 2% Opht Sol 10ml OU SCH ×3 (09:54→17:48)
--- NOTE | 2017-05-25 10:37 | RAD ---
PROCEDURE: CHEST RADIOGRAPH, 1 VIEW HISTORY: intubated COMPARISON: 05/24/2017 FINDINGS: LUNGS: Endotracheal tube somewhat low lying approximately 1.4 centimeters above the sang. NG tube extending into the stomach with the distal tip not well visualized. Moderate venous congestion with diffuse increased interstitial lung markings. More patchy consolidative changes in the mid to lower lung zones with small bilateral pleural effusions. Linear atelectasis in the left midlung zone. PLEURA: As above. CARDIOVASCULAR: Cardiomegaly. OSSEOUS STRUCTURES: Degenerative changes in the spine and shoulders. VISUALIZED UPPER ABDOMEN: Normal. OTHER FINDINGS: None. IMPRESSION: Endotracheal tube somewhat low lying approximately 1.4 centimeters above the sang. NG tube extending into the stomach with the distal tip not well visualized. Moderate venous congestion with diffuse increased interstitial lung markings. More patchy consolidative changes in the mid to lower lung zones with small bilateral pleural effusions. Linear atelectasis in the left midlung zone.
[2017-05-25] MEDS: Pantoprazole 40 mg Susp UD NG SCH (10:45)
--- NOTE | 2017-05-25 13:07 | CARD ---
APPROVED REPORT EKG Measurement Heart [id number] <Conclusion> Atrial fibrillation ST & T wave abnormality, consider inferior ischemia ST & T wave abnormality, consider anterolateral ischemia Prolonged QT Abnormal ECG
--- NOTE | 2017-05-25 14:19 | CP.CCUPN ---
<Chip Srinivasan - Last Filed: 05/25/17 14:16> CCU Subjective - Physician Review Subjective (Free Text): Patient seen and examined at bedside. Patient remains intubated, sedated and still hypoxic. Per nursing staff, no acute events overnight and remains easily arousable. Suction from ET tube has whitish secretions. ROS not obtained due to current status. Case discussed with house-staff; medical records and chart reviewed and labs discussed. 05/25/17 14:16 CCU Objective - Vital Signs / Intake & Output Vital Signs (Last 4 hours): Vital Signs Temp Pulse Resp BP Pulse Ox 05/25/17 14:00 102 H 18 128/65 92 L 05/25/17 13:00 95 H 18 130/57 L 89 L 05/25/17 12:00 97.9 F 100 H 18 146/60 91 L 05/25/17 11:00 87 18 146/64 93 L Intake and Output (Last 8hrs): Intake & Output 05/24/17 05/25/17 05/25/17 22:59 06:59 14:59 Intake Total 548.6 400.4 694.1 Output Total 960 410 770 Balance -411.4 -9.6 -75.9 Weight 261 lb 0.437 oz Intake: IV 210 190 200 Intake, IV Amount 158.6 210.4 184.1 Right Forearm 0 Right Wrist 64.1 210.4 184.1 left hand 94.5 Tube Feeding 180 210 Other 100 Output: Urine 960 410 770 Urethral (Saenz) 960 410 770 - Physical Exam Head: Positive for: Atraumatic, Normocephalic Pupils: Positive for: PERRL Extroacular Muscles: Positive for: EOMI Mouth: Positive for: Other (intubated; Suction from ET tube has whitish secretions) Respiratory/Chest: Positive for: Wheezes Cardiovascular: Positive for: Regular Rate and Rhythm, Normal S1, S2 Abdomen: Positive for: Normal Bowel Sounds. Negative for: Tenderness Neurological: Positive for: Other (Responding to deep stimuli) Psychiatric: Positive for: Other Other physical findings (Free Text): sedated - Medications Active Medications: Active Medications Generic Name Dose Route Start Last Admin Trade Name Freq PRN Reason Stop Dose Admin Acetylcysteine 4 ml 05/25/17 09:15 05/25/17 07:05 Acetylcysteine 20% INH Not Given RQ6 ALISA Albuterol/Ipratropium 3 ml 05/23/17 14:00 05/25/17 13:44 Duoneb 3 Mg/0.5 Mg (3 Ml) Ud INH 3 ml RQ6 ALISA Administration Aspirin 81 mg 05/25/17 10:00 05/25/17 09:53 Aspirin Chewable PO 81 mg DAILY ALISA Administration Diltiazem HCl 30 mg 05/23/17 10:00 05/25/17 14:07 Cardizem PO 30 mg QID ALISA Administration Docusate Sodium 100 mg 05/25/17 10:00 05/25/17 14:07 Colace NG 100 mg TID ALISA Administration Dorzolamide HCl 10 ml 05/22/17 18:00 05/25/17 14:08 Trusopt OU 1 drop TID ALISA Administration Enalapril Maleate 10 mg 05/23/17 10:00 05/25/17 09:53 Vasotec PO 10 mg DAILY ALISA Administration Enoxaparin Sodium 120 mg 05/23/17 22:00 05/25/17 09:54 Lovenox SC 120 mg Q12 ALISA Administration Propofol 1,000 mg in 100 mls @ 3.742 mls/hr 05/22/17 18:47 05/25/17 14:00 Diprivan IV 35.14 mcg/kg/min .Q24H PRN 26.3 mls/hr Agitation Administration Protocol 5 MCG/KG/MIN Methylprednisolone 40 mg 05/25/17 10:00 05/25/17 10:46 Solu-Medrol IV 40 mg Q12 ALISA Administration Montelukast Sodium 10 mg 05/23/17 10:00 05/25/17 10:46 Singulair PO 10 mg DAILY ALISA Administration Multivitamins 1 tab 05/22/17 13:45 05/25/17 09:53 Hexavitamin PO 1 tab DAILY ALISA Administration Pantoprazole Sodium 40 mg 05/23/17 10:00 05/25/17 10:45 Protonix Susp NG 40 mg DAILY ALISA Administration Rosuvastatin Calcium 10 mg 05/22/17 22:00 05/24/17 22:45 Crestor PO 10 mg HS ALISA Administration Torsemide 20 mg 05/23/17 10:00 05/25/17 09:54 Demadex PO 20 mg DAILY ALISA Administration - Patient Studies Lab Studies: Microbiology Studies 05/22/17 16:25 Blood Culture - Preliminary Blood-Venous NO GROWTH AFTER 48 HOURS 05/22/17 16:55 Blood Culture - Preliminary Blood-Venous NO GROWTH AFTER 48 HOURS Lab Studies 05/25/17 05/25/17 05/25/17 Range/Units 06:31 06:31 05:20 WBC 17.1 H (4.8-10.8) K/uL RBC 4.62 (3.80-5.20) Mil/uL Hgb 12.3 (11.0-16.0) g/dL Hct 38.6 (34.0-47.0) % MCV 83.5 (81.0-99.0) fL MCH 26.7 L (27.0-31.0) pg MCHC 32.0 L (33.0-37.0) g/dL RDW 16.5 H (11.5-14.5) % Plt Count 232 (130-400) K/uL MPV 7.7 (7.2-11.7) fL Neut % (Auto) 92.2 H (50.0-75.0) % Lymph % (Auto) 2.9 L (20.0-40.0) % Major % (Auto) 4.7 (0.0-10.0) % Eos % (Auto) 0.0 (0.0-4.0) % Baso % (Auto) 0.2 (0.0-2.0) % Neut # 15.8 H (1.8-7.0) K/uL Lymph # 0.5 L (1.0-4.3) K/uL Major # 0.8 (0.0-0.8) K/uL Eos # 0.0 (0.0-0.7) K/uL Baso # 0.0 (0.0-0.2) K/uL Neutrophils % (Manual) 92 H (50-75) % Band Neutrophils % 1 (0-2) % Lymphocytes % (Manual) 4 L (20-40) % Monocytes % (Manual) 3 (0-10) % Platelet Estimate Normal (NORMAL) Large Platelets Present [place] Cells Slight Puncture Site Rradial pCO2 53 H (35-45) mm/Hg pO2 74 L (80-100) mm/Hg HCO3 33.3 H (21-28) mmol/L ABG pH 7.45 (7.35-7.45) ABG Total CO2 38.4 H (22-28) mmol/L ABG O2 Saturation 96.6 (95-98) % ABG Base Excess 10.9 H (-2.0-3.0) mmol/L ABG Hemoglobin 13.2 (11.7-17.4) g/dL ABG Carboxyhemoglobin 1.7 H (0.5-1.5) % POC ABG HHb (Measured) 3.3 (0.0-5.0) % ABG Methemoglobin 1.1 (0.0-3.0) % Sj Test Pos A-a O2 Difference 288.0 mm/Hg Respiratory Index 3.9 Hgb O2 Saturation 93.8 L (95.0-98.0) % Vent Mode A/c Mechanical Rate 16 FiO2 60.0 % Tidal Volume 450 PEEP 5 Sodium 141 (132-148) mmol/L Potassium 3.9 (3.6-5.2) mmol/L Chloride 99 (98-107) mmol/L Carbon Dioxide 33 H (22-30) mmol/L Anion Gap 13 (10-20) BUN 40 H (7-17) mg/dL Creatinine 0.6 L (0.7-1.2) MG/DL Est GFR ( Amer) > 60 Est GFR (Non-Af Amer) > 60 Random Glucose 155 H (65-105) mg/dL Calcium 8.1 L (8.6-10.4) mg/dl Phosphorus 3.7 (2.5-4.5) mg/dL Magnesium 2.2 (1.6-2.3) mg/dL Total Bilirubin 0.7 (0.2-1.3) mg/dL AST 22 (14-36) U/L ALT 28 (9-52) U/L Alkaline Phosphatase 72 (38-126) U/L Total Protein 6.3 (6.3-8.3) g/dL Albumin 3.3 L (3.5-5.0) g/dL Globulin 3.0 (2.2-3.9) gm/dL Albumin/Globulin Ratio 1.1 (1.0-2.1) Laboratory Results - last 24 hr 05/25/17 05/25/1717 05:20 06:31 06:31 WBC 17.1 H RBC 4.62 Hgb 12.3 Hct 38.6 MCV 83.5 MCH 26.7 L MCHC 32.0 L RDW 16.5 H Plt Count 232 MPV 7.7 Neut % (Auto) 92.2 H Lymph % (Auto) 2.9 L Major % (Auto) 4.7 Eos % (Auto) 0.0 Baso % (Auto) 0.2 Neut # 15.8 H Lymph # 0.5 L Major # 0.8 Eos # 0.0 Baso # 0.0 Neutrophils % (Manual) 92 H Band Neutrophils % 1 Lymphocytes % (Manual) 4 L Monocytes % (Manual) 3 Platelet Estimate Normal Large Platelets Present [place] Cells Slight Puncture Site Rradial pCO2 53 H pO2 74 L HCO3 33.3 H ABG pH 7.45 ABG Total CO2 38.4 H ABG O2 Saturation 96.6 ABG Base Excess 10.9 H ABG Hemoglobin 13.2 ABG Carboxyhemoglobin 1.7 H POC ABG HHb (Measured) 3.3 ABG Methemoglobin 1.1 Sj Test Pos A-a O2 Difference 288.0 Respiratory Index 3.9 Hgb O2 Saturation 93.8 L Vent Mode A/c Mechanical Rate 16 FiO2 60.0 Tidal Volume 450 PEEP 5 Sodium 141 Potassium 3.9 Chloride 99 Carbon Dioxide 33 H Anion Gap 13 BUN 40 H Creatinine 0.6 L Est GFR ( Amer) > 60 Est GFR (Non-Af Amer) > 60 Random Glucose 155 H Calcium 8.1 L Phosphorus 3.7 Magnesium 2.2 Total Bilirubin 0.7 AST 22 ALT 28 Alkaline Phosphatase 72 Total Protein 6.3 Albumin 3.3 L Globulin 3.0 Albumin/Globulin Ratio 1.1 Review of Systems - Review of Systems Systems not reviewed;Unavailable: Intubated Critical Care Progress Note - Vent Settings TIDAL VOLUME:: 450 RESP RATE:: 16 FIO2:: 60 PEEP:: 5 Assessment/Plan (1) Respiratory acidosis Current Visit: Yes Status: Acute (2) COPD exacerbation Current Visit: Yes Status: Acute (3) Elevated troponin Current Visit: Yes Status: Acute (4) Atrial fibrillation, new onset Current Visit: Yes Status: Acute (5) Cardiomegaly Current Visit: Yes Status: Acute (6) Elevated WBCs Current Visit: Yes Status: Acute (7) Abnormal RBC indices Current Visit: Yes Status: Acute (8) History of hypertension Current Visit: Yes Status: Acute (9) History of hyperlipidemia Current Visit: Yes Status: Acute (10) Change in mental state Current Visit: Yes Status: Acute (11) History of dementia Current Visit: Yes Status: Acute (12) History of gastroesophageal reflux (GERD) Current Visit: Yes Status: Acute (13) History of glaucoma Current Visit: Yes Status: Acute (14) Prophylactic measure Current Visit: Yes Status: Acute - Assessment and Plan (Free Text) Assessment: 76 year old female with PMHx of COPD, Asthma, HTN, Cardiomegaly, Dementia presenting with Respiratory acidosis and COPD exacerbation Pulmonary: Respiratory acidosis, COPD exacerbation - Respiratory acidosis likely secondary to COPD exacerbation. - Intubated (since 05/22) and sedated on Diprivan drip 1,000mg daily - Decreased Solumedrol from 60mg to 40 mg IV Q8 - Singular 10 mg PO daily - Duoneb 3 ml INH RQ6 - Fan Mail Clerk on board: Dr. Camejo - Whitish secretions, rule out pneumonia, f/u CT chest w/o contrast - Start Mucomyst 4 ml INH RQ6 Cardio: Elevated troponin, A-fib, Cardiomegaly with Diastolic Heart Failure, HTN , HLD - Troponins elevated and ProBNP elevated likely secondary to COPD/CHF - [id number] score is 4. Continue therapeutic Lovenox 120 mg SC Q12 - ASA 81 mg daily - 05/22 EKG: inferior, anterolateral ischemia. A-fib - 05/22 CXR: marked cardiomegaly. No focal consolidation, no pericardial effusion , no pneumothorax - 05/22 Echo: EF 60-65% with normal LVSF, basal anteroseptal wall hypokinesis. Moderate pulmonary hypertension. Right ventricle moderately dilated. - No further cardiac workup or interventation at this time per Cardiology, Dr. Hart - Diltiazem 30 mg PO 4x daily - Enalapril 10 mg PO daily - Crestor 10 mg PO HS - Torsemide 20 mg PO daily ID: Elevated WBCs - Blood and urine culture from 05/22 negative - Afebrile, possible stress response or transient increased due to steroid use - rule out pneumonia, chest CT ordered Neuro: Dementia, altered mental status - continue home meds: Donepezil 5 mg PO HS - 05/[address] w/o contrast: no acute findings. GI: GERD , constipation - Protonix 40 mg NG daily - Start Colace 100 mg NG TID Heme: abnormal RBC indices - Hgb today (05/25) 12.3 - patient has not had a bowel movement in a few days, will discontinue Ferrous sulfate Ophtho: Glaucoma - Dorzolamide 10 ml OU TID Prophylaxis DVT: Lovenox 120mg SC Q12 GI: Protonix 40 mg NG daily Multivitamins <Dottie Vera - Last Filed: 05/25/17 19:13> CCU Subjective - Physician Review Events Since Last Encounter (Free Text): 05/25/17 19:13 Examined at bedside. Patient is still hypoxic today. CAT scan of the chest are showing evidence of left lower lung pneumonia. Added PEEP. Spoke to the patient's family. We'll continue to monitor. May need bronchoscopic evaluation if needed will follow the patient by ICU team CCU Objective - Vital Signs / Intake & Output Vital Signs (Last 4 hours): Vital Signs Temp Pulse Resp BP Pulse Ox 05/25/17 18:00 84 18 90 L 05/25/17 17:59 83 18 131/65 90 L 05/25/17 17:00 81 18 90 L 05/25/17 16:59 81 18 130/67 90 L 05/25/17 16:00 97.7 F 89 18 91 L 05/25/17 15:59 84 18 125/72 90 L Intake and Output (Last 8hrs): Intake & Output 05/25/17 05/25/17 05/25/17 06:59 14:59 22:59 Intake Total 400.4 720.4 325.2 Output Total 410 770 310 Balance -9.6 -49.6 15.2 Weight 261 lb 0.437 oz Intake: IV 190 200 100 Intake, IV Amount 210.4 210.4 105.2 Right Forearm 0 Right Wrist 210.4 210.4 105.2 Tube Feeding 210 120 Other 100 Output: Urine 410 770 310 Urethral (Saenz) 410 770 310 - Medications Active Medications: Active Medications Generic Name Dose Route Start Last Admin Trade Name Freq PRN Reason Stop Dose Admin Acetylcysteine 4 ml 05/25/17 09:15 05/25/17 07:05 Acetylcysteine 20% INH Not Given RQ6 ALISA Albuterol/Ipratropium 3 ml 05/23/17 14:00 05/25/17 13:44 Duoneb 3 Mg/0.5 Mg (3 Ml) Ud INH 3 ml RQ6 ALISA Administration Aspirin 81 mg 05/25/17 10:00 05/25/17 09:53 Aspirin Chewable PO 81 mg DAILY ALISA Administration Diltiazem HCl 30 mg 05/23/17 10:00 05/25/17 17:48 Cardizem PO 30 mg QID ALISA Administration Docusate Sodium 100 mg 05/25/17 10:00 05/25/17 17:48 Colace NG 100 mg TID ALISA Administration Dorzolamide HCl 10 ml 05/22/17 18:00 05/25/17 17:48 Trusopt OU 1 drop TID ALISA Administration Enalapril Maleate 10 mg 05/23/17 10:00 05/25/17 09:53 Vasotec PO 10 mg DAILY ALISA Administration Enoxaparin Sodium 120 mg 05/23/17 22:00 05/25/17 09:54 Lovenox SC 120 mg Q12 ALISA Administration Propofol 1,000 mg in 100 mls @ 3.742 mls/hr 05/22/17 18:47 05/25/17 17:52 Diprivan IV 35.14 mcg/kg/min .Q24H PRN 26.3 mls/hr Agitation Administration Protocol 5 MCG/KG/MIN Methylprednisolone 40 mg 05/25/17 10:00 05/25/17 10:46 Solu-Medrol IV 40 mg Q12 ALISA Administration Montelukast Sodium 10 mg 05/23/17 10:00 05/25/17 10:46 Singulair PO 10 mg DAILY ALISA Administration Multivitamins 1 tab 05/22/17 13:45 05/25/17 09:53 Hexavitamin PO 1 tab DAILY ALISA Administration Pantoprazole Sodium 40 mg 05/23/17 10:00 05/25/17 10:45 Protonix Susp NG 40 mg DAILY ALISA Administration Rosuvastatin Calcium 10 mg 05/22/17 22:00 05/24/17 22:45 Crestor PO 10 mg HS ALISA Administration Torsemide 20 mg 05/23/17 10:00 05/25/17 09:54 Demadex PO 20 mg DAILY ALISA Administration - Patient Studies Lab Studies: Microbiology Studies 05/22/17 16:25 Blood Culture - Preliminary Blood-Venous NO GROWTH AFTER 3 DAYS 05/22/17 16:55 Blood Culture - Preliminary Blood-Venous NO GROWTH AFTER 3 DAYS Lab Studies 05/25/17 05/25/17 05/25/17 Range/Units 06:31 06:31 05:20 WBC 17.1 H (4.8-10.8) K/uL RBC 4.62 (3.80-5.20) Mil/uL Hgb 12.3 (11.0-16.0) g/dL Hct 38.6 (34.0-47.0) % MCV 83.5 (81.0-99.0) fL MCH 26.7 L (27.0-31.0) pg MCHC 32.0 L (33.0-37.0) g/dL RDW 16.5 H (11.5-14.5) % Plt Count 232 (130-400) K/uL MPV 7.7 (7.2-11.7) fL Neut % (Auto) 92.2 H (50.0-75.0) % Lymph % (Auto) 2.9 L (20.0-40.0) % Major % (Auto) 4.7 (0.0-10.0) % Eos % (Auto) 0.0 (0.0-4.0) % Baso % (Auto) 0.2 (0.0-2.0) % Neut # 15.8 H (1.8-7.0) K/uL Lymph # 0.5 L (1.0-4.3) K/uL Major # 0.8 (0.0-0.8) K/uL Eos # 0.0 (0.0-0.7) K/uL Baso # 0.0 (0.0-0.2) K/uL Neutrophils % (Manual) 92 H (50-75) % Band Neutrophils % 1 (0-2) % Lymphocytes % (Manual) 4 L (20-40) % Monocytes % (Manual) 3 (0-10) % Platelet Estimate Normal (NORMAL) Large Platelets Present [place] Cells Slight Puncture Site Rradial pCO2 53 H (35-45) mm/Hg pO2 74 L (80-100) mm/Hg HCO3 33.3 H (21-28) mmol/L ABG pH 7.45 (7.35-7.45) ABG Total CO2 38.4 H (22-28) mmol/L ABG O2 Saturation 96.6 (95-98) % ABG Base Excess 10.9 H (-2.0-3.0) mmol/L ABG Hemoglobin 13.2 (11.7-17.4) g/dL ABG Carboxyhemoglobin 1.7 H (0.5-1.5) % POC ABG HHb (Measured) 3.3 (0.0-5.0) % ABG Methemoglobin 1.1 (0.0-3.0) % Sj Test Pos A-a O2 Difference 288.0 mm/Hg Respiratory Index 3.9 Hgb O2 Saturation 93.8 L (95.0-98.0) % Vent Mode A/c Mechanical Rate 16 FiO2 60.0 % Tidal Volume 450 PEEP 5 Sodium 141 (132-148) mmol/L Potassium 3.9 (3.6-5.2) mmol/L Chloride 99 (98-107) mmol/L Carbon Dioxide 33 H (22-30) mmol/L Anion Gap 13 (10-20) BUN 40 H (7-17) mg/dL Creatinine 0.6 L (0.7-1.2) MG/DL Est GFR ( Amer) > 60 Est GFR (Non-Af Amer) > 60 Random Glucose 155 H (65-105) mg/dL Calcium 8.1 L (8.6-10.4) mg/dl Phosphorus 3.7 (2.5-4.5) mg/dL Magnesium 2.2 (1.6-2.3) mg/dL Total Bilirubin 0.7 (0.2-1.3) mg/dL AST 22 (14-36) U/L ALT 28 (9-52) U/L Alkaline Phosphatase 72 (38-126) U/L Total Protein 6.3 (6.3-8.3) g/dL Albumin 3.3 L (3.5-5.0) g/dL Globulin 3.0 (2.2-3.9) gm/dL Albumin/Globulin Ratio 1.1 (1.0-2.1) Laboratory Results - last 24 hr 05/25/17 05/25/17 05/25/17 05:20 06:31 06:31 WBC 17.1 H RBC 4.62 Hgb 12.3 Hct 38.6 MCV 83.5 MCH 26.7 L MCHC 32.0 L RDW 16.5 H Plt Count 232 MPV 7.7 Neut % (Auto) 92.2 H Lymph % (Auto) 2.9 L Major % (Auto) 4.7 Eos % (Auto) 0.0 Baso % (Auto) 0.2 Neut # 15.8 H Lymph # 0.5 L Major # 0.8 Eos # 0.0 Baso # 0.0 Neutrophils % (Manual) 92 H Band Neutrophils % 1 Lymphocytes % (Manual) 4 L Monocytes % (Manual) 3 Platelet Estimate Normal Large Platelets Present [place] Cells Slight Puncture Site Rradial pCO2 53 H pO2 74 L HCO3 33.3 H ABG pH 7.45 ABG Total CO2 38.4 H ABG O2 Saturation 96.6 ABG Base Excess 10.9 H ABG Hemoglobin 13.2 ABG Carboxyhemoglobin 1.7 H POC ABG HHb (Measured) 3.3 ABG Methemoglobin 1.1 Sj Test Pos A-a O2 Difference 288.0 Respiratory Index 3.9 Hgb O2 Saturation 93.8 L Vent Mode A/c Mechanical Rate 16 FiO2 60.0 Tidal Volume 450 PEEP 5 Sodium 141 Potassium 3.9 Chloride 99 Carbon Dioxide 33 H Anion Gap 13 BUN 40 H Creatinine 0.6 L Est GFR ( Amer) > 60 Est GFR (Non-Af Amer) > 60 Random Glucose 155 H Calcium 8.1 L Phosphorus 3.7 Magnesium 2.2 Total Bilirubin 0.7 AST 22 ALT 28 Alkaline Phosphatase 72 Total Protein 6.3 Albumin 3.3 L Globulin 3.0 Albumin/Globulin Ratio 1.1
--- NOTE | 2017-05-25 14:26 | CT ---
PROCEDURE: CT Chest without contrast HISTORY: pneumonia COMPARISON: None. TECHNIQUE: Contiguous axial images were obtained through the chest without intravenous contrast enhancement. Sagittal and coronal reconstructions were performed. Radiation dose (DLP): 921.11 mGy-cm. This CT exam was performed using one or more of the following dose reduction techniques: Automated exposure control, adjustment of the mA and/or kV according to patient size, and/or use of iterative reconstruction technique. FINDINGS: LUNGS: There is airspace consolidation at the right lower lobe contains air bronchogram may represent pneumonia or less likely atelectasis. There is also small airspace consolidation at the left lung base likely represent atelectasis. There is mild pulmonary vascular congestion. MEDIASTINUM: Unremarkable thoracic aorta. No aneurysm. The heart is moderately enlarged. Main pulmonary artery unremarkable. No vascular congestion. No lymphadenopathy. PLEURA: There are small bilateral pleural effusions. BONES: No fracture. No destructive lesion. UPPER ABDOMEN: NG tube seen extending to the stomach. OTHER FINDINGS: None. IMPRESSION: Moderate to large size airspace consolidation at the right lower lobe contains air bronchogram may represent pneumonia or atelectasis. Small airspace consolidation at the left lung base likely atelectasis. Cardiomegaly. Small bilateral pleural effusions. Appropriate position of the NG tube. Slightly low position of the ETT with the tip is 1.5 centimeter above the sang.
--- NOTE | 2017-05-25 15:00 | CP.PCM.PN ---
Subjective - Date & Time of Evaluation Date of Evaluation: 05/25/17 Time of Evaluation: 13:25 - Subjective Subjective: Patient was seen and examined in ICU. Patient is intubated and sedated. Objective - Vital Signs/Intake and Output Vital Signs (last 24 hours): Temp Pulse Resp BP Pulse Ox 97.9 F 102 H 18 128/65 92 L 05/25/17 12:00 05/25/17 14:00 05/25/17 14:00 05/25/17 14:00 05/25/17 14:00 Intake and Output: 05/25/17 05/25/17 06:59 18:59 Intake Total 653.4 694.1 Output Total 660 770 Balance -6.6 -75.9 - Medications Medications: Current Medications Acetylcysteine (Acetylcysteine 20%) 4 ml INH RQ6 [facility] Last Admin: 05/25/17 07:05 Dose: Not Given Albuterol/Ipratropium (Duoneb 3 Mg/0.5 Mg (3 Ml) Ud) 3 ml INH RQ6 [facility] Last Admin: 05/25/17 13:44 Dose: 3 ml Aspirin (Aspirin Chewable) 81 mg PO DAILY [facility] Last Admin: 05/25/17 09:53 Dose: 81 mg Diltiazem HCl (Cardizem) 30 mg PO QID [facility] Last Admin: 05/25/17 14:07 Dose: 30 mg Docusate Sodium (Colace) 100 mg NG TID [facility] Last Admin: 05/25/17 14:07 Dose: 100 mg Dorzolamide HCl (Trusopt) 10 ml OU TID [facility] Last Admin: 05/25/17 14:08 Dose: 1 drop Enalapril Maleate (Vasotec) 10 mg PO DAILY [facility] Last Admin: 05/25/17 09:53 Dose: 10 mg Enoxaparin Sodium (Lovenox) 120 mg SC Q12 [facility] Last Admin: 05/25/17 09:54 Dose: 120 mg Propofol (Diprivan) 1,000 mg in 100 mls @ 3.742 mls/hr IV .Q24H PRN; Protocol; 5 MCG/KG/MIN PRN Reason: Agitation Last Admin: 05/25/17 14:00 Dose: 35.14 mcg/kg/min, 26.3 mls/hr Methylprednisolone (Solu-Medrol) 40 mg IV Q12 [facility] Last Admin: 05/25/17 10:46 Dose: 40 mg Montelukast Sodium (Singulair) 10 mg PO DAILY [facility] Last Admin: 05/25/17 10:46 Dose: 10 mg Multivitamins (Hexavitamin) 1 tab PO DAILY [facility] Last Admin: 05/25/17 09:53 Dose: 1 tab Pantoprazole Sodium (Protonix Susp) 40 mg NG DAILY [facility] Last Admin: 05/25/17 10:45 Dose: 40 mg Rosuvastatin Calcium (Crestor) 10 mg PO HS [facility] Last Admin: 05/24/17 22:45 Dose: 10 mg Torsemide (Demadex) 20 mg PO DAILY [facility] Last Admin: 05/25/17 09:54 Dose: 20 mg - Labs Labs: 05/25/17 06:31 05/25/17 06:31 - Head Exam Head Exam: ATRAUMATIC, NORMOCEPHALIC - Eye Exam Eye Exam: Normal appearance - ENT Exam ENT Exam: Mucous Membranes Moist - Respiratory Exam Additional comments: Intubated on ventilator support. Transmitted breath sounds audible. - Cardiovascular Exam Cardiovascular Exam: REGULAR RHYTHM, +S1, +S2 - GI/Abdominal Exam GI & Abdominal Exam: Soft - Extremities Exam Extremities Exam: absent: Pedal Edema Assessment and Plan (1) Acute respiratory failure with hypoxia and hypercapnia Status: Acute (2) COPD exacerbation Status: Acute (3) Atrial fibrillation, new onset Status: Acute (4) CHF (congestive heart failure) Status: Acute (5) Elevated WBCs Assessment & Plan: Patient is intubated. Weaning trial as per ICU team. Next and patient is on duo nebs and Solu-Medrol Continue Cardizem for rate control. Patient is anticoagulated with therapeutic Lovenox Cardiology is on board. I discussed the plan of care with the ICU team. Status: Acute (6) History of hyperlipidemia Status: Acute (7) History of hypertension Status: Acute
--- NOTE | 2017-05-25 18:33 | CP.PCM.PN ---
Subjective - Date & Time of Evaluation Date of Evaluation: 05/25/17 Time of Evaluation: 11:00 - Subjective Subjective: patient seen and examined Remains intubate on ventilatory support requiring high FiO2 Response to vocal command Tolerating feeding Objective - Vital Signs/Intake and Output Vital Signs (last 24 hours): Temp Pulse Resp BP Pulse Ox 97.7 F 84 18 131/65 90 L 05/25/17 16:00 05/25/17 18:00 05/25/17 18:00 05/25/17 17:59 05/25/17 18:00 Intake and Output: 05/25/17 05/25/17 06:59 18:59 Intake Total 653.4 1045.6 Output Total 660 1080 Balance -6.6 -34.4 - Medications Medications: Current Medications Acetylcysteine (Acetylcysteine 20%) 4 ml INH RQ6 [facility] Last Admin: 05/25/17 07:05 Dose: Not Given Albuterol/Ipratropium (Duoneb 3 Mg/0.5 Mg (3 Ml) Ud) 3 ml INH RQ6 [facility] Last Admin: 05/25/17 13:44 Dose: 3 ml Aspirin (Aspirin Chewable) 81 mg PO DAILY [facility] [place] Last Admin: 05/25/17 09:53 Dose: 81 mg Diltiazem HCl (Cardizem) 30 mg PO QID [facility] [place] Last Admin: 05/25/17 17:48 Dose: 30 mg Docusate Sodium (Colace) 100 mg NG TID [facility] Last Admin: 05/25/17 17:48 Dose: 100 mg Dorzolamide HCl (Trusopt) 10 ml OU TID [facility] [place] Last Admin: 05/25/17 17:48 Dose: 1 drop Enalapril Maleate (Vasotec) 10 mg PO DAILY [facility] [place] Last Admin: 05/25/17 09:53 Dose: 10 mg Enoxaparin Sodium (Lovenox) 120 mg SC Q12 [facility] [place] Last Admin: 05/25/17 09:54 Dose: 120 mg Propofol (Diprivan) 1,000 mg in 100 mls @ 3.742 mls/hr IV .Q24H PRN; Protocol; 5 MCG/KG/MIN PRN Reason: Agitation Last Admin: 05/25/17 17:52 Dose: 35.14 mcg/kg/min, 26.3 mls/hr Methylprednisolone (Solu-Medrol) 40 mg IV Q12 [facility] [place] Last Admin: 05/25/17 10:46 Dose: 40 mg Montelukast Sodium (Singulair) 10 mg PO DAILY [facility] [place] Last Admin: 05/25/17 10:46 Dose: 10 mg Multivitamins (Hexavitamin) 1 tab PO DAILY [facility] [place] Last Admin: 05/25/17 09:53 Dose: 1 tab Pantoprazole Sodium (Protonix Susp) 40 mg NG DAILY [facility] [place] Last Admin: 05/25/17 10:45 Dose: 40 mg Rosuvastatin Calcium (Crestor) 10 mg PO HS [facility] [place] Last Admin: 05/24/17 22:45 Dose: 10 mg Torsemide (Demadex) 20 mg PO DAILY [facility] [place] Last Admin: 05/25/17 09:54 Dose: 20 mg - Labs Labs: 05/25/17 06:31 05/25/17 06:31 - Head Exam Head Exam: ATRAUMATIC, NORMOCEPHALIC - ENT Exam ENT Exam: Mucous Membranes Moist - Neck Exam Neck Exam: Normal Inspection - Respiratory Exam Respiratory Exam: Decreased Breath Sounds - Cardiovascular Exam Cardiovascular Exam: Irregular Rhythm - GI/Abdominal Exam GI & Abdominal Exam: Soft, Normal Bowel Sounds - Extremities Exam Extremities Exam: Pedal Edema - Neurological Exam Neurological Exam: Awake Assessment and Plan (1) Acute respiratory failure with hypoxia and hypercapnia Assessment & Plan: Continue ventilatory support Bronchoscopy Continue IV steroids and nebulizer Status: Acute (2) Atrial fibrillation, new onset Status: Acute (3) COPD exacerbation Status: Acute
--- NOTE | 2017-05-25 23:59 | CP.PCM.PN ---
Subjective - Date & Time of Evaluation Date of Evaluation: 05/25/17 Time of Evaluation: 16:20 - Subjective Subjective: Patient seen and evaluated Intubated on Mechanical ventilation Physical examination - Head Exam Head Exam: ATRAUMATIC, NORMAL INSPECTION - Eye Exam Eye Exam: PERRL - ENT Exam ENT Exam: Mucous Membranes Moist - Neck Exam Neck Exam: Normal Inspection - Respiratory Exam Respiratory Exam: Decreased Breath Sounds - Cardiovascular Exam Cardiovascular Exam: Irregular Rhythm, +S1, +S2 - GI/Abdominal Exam GI & Abdominal Exam: Normal Bowel Sounds - Skin Skin Exam: Warm Objective - Vital Signs/Intake and Output Vital Signs (last 24 hours): Temp Pulse Resp BP Pulse Ox 97.7 F 110 H 19 150/72 90 L 05/25/17 16:00 05/25/17 21:00 05/25/17 21:00 05/25/17 21:00 05/25/17 21:00 Intake and Output: 05/25/17 05/26/17 18:59 06:59 Intake Total 1045.6 156.3 Output Total 1080 50 Balance -34.4 106.3 - Medications Medications: Current Medications Acetylcysteine (Acetylcysteine 20%) 4 ml INH RQ6 [facility] Last Admin: 05/25/17 20:09 Dose: 4 ml Albuterol/Ipratropium (Duoneb 3 Mg/0.5 Mg (3 Ml) Ud) 3 ml INH RQ6 [facility] Last Admin: 05/25/17 20:09 Dose: 3 ml Aspirin (Aspirin Chewable) 81 mg PO DAILY [facility] Last Admin: 05/25/17 09:53 Dose: 81 mg Diltiazem HCl (Cardizem) 30 mg PO QID [facility] Last Admin: 05/25/17 22:20 Dose: 30 mg Docusate Sodium (Colace) 100 mg NG TID [facility] Last Admin: 05/25/17 17:48 Dose: 100 mg Dorzolamide HCl (Trusopt) 10 ml OU TID [facility] Last Admin: 05/25/17 17:48 Dose: 1 drop Enalapril Maleate (Vasotec) 10 mg PO DAILY [facility] Last Admin: 05/25/17 09:53 Dose: 10 mg Enoxaparin Sodium (Lovenox) 120 mg SC Q12 [facility] Last Admin: 05/25/17 22:20 Dose: 120 mg Propofol (Diprivan) 1,000 mg in 100 mls @ 3.742 mls/hr IV .Q24H PRN; Protocol; 5 MCG/KG/MIN PRN Reason: Agitation Last Admin: 05/25/17 22:28 Dose: 35.14 mcg/kg/min, 26.3 mls/hr Methylprednisolone (Solu-Medrol) 40 mg IV Q12 [facility] Last Admin: 05/25/17 22:21 Dose: 40 mg Montelukast Sodium (Singulair) 10 mg PO DAILY [facility] Last Admin: 05/25/17 10:46 Dose: 10 mg Multivitamins (Hexavitamin) 1 tab PO DAILY [facility] Last Admin: 05/25/17 09:53 Dose: 1 tab Pantoprazole Sodium (Protonix Susp) 40 mg NG DAILY [facility] Last Admin: 05/25/17 10:45 Dose: 40 mg Rosuvastatin Calcium (Crestor) 10 mg PO HS [facility] Last Admin: 05/25/17 22:21 Dose: 10 mg Torsemide (Demadex) 20 mg PO DAILY [facility] Last Admin: 05/25/17 09:54 Dose: 20 mg - Labs Labs: 05/25/17 06:31 05/25/17 06:31 Assessment and Plan - Assessment and Plan (Free Text) Assessment: 1. Abnormal troponin Most likley secondary to CHF/COPD and hypoxemia ECHO: Normal EF Do not recommend additional cardiac work up ASA 325 chnaged to 81mg po daily 2. Diastolic CHF Lasix as needed 3. 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
[2017-05-26] MEDS: Albuterol-Ipratrop 3 mg / 0.5 (3 ml) UD INH SCH ×4 (01:31→19:41)
[2017-05-26] MEDS: Acetylcysteine 20% Inhal Soln (4ml) INH SCH ×4 (01:31→19:40)
[2017-05-26] MEDS: Propofol 10 mg/ml 1,000 MG/100 ML VIAL IV PRN ×6 (01:45→23:20)
[2017-05-26 04:41] LABS: ABG ALLEN TEST POS; ABG MECHANICAL RATE 18; ARTERIAL BLOOD GAS MODE PRVC; ARTERIAL BLOOD HGB O2 SAT 91.9 % (95.0-98.0); ATERIAL BLOOD GAS PEEP 5; CARBOXYHEMOGLOBIN 1.8 % (0.5-1.5); DRAW SITE RR; HHB 5.2 % (0.0-5.0)
[2017-05-26 06:19] LABS: BASO % 0.2 % (0.0-2.0); HEMATOCRIT 41.5 % (34.0-47.0); LYMPH # 0.4 K/uL (1.0-4.3); LYMPH % 2.7 % (20.0-40.0); MEAN CELL VOLUME 83.6 fL (81.0-99.0); MEAN CORPUSCULAR HEMOGLOBIN 26.6 pg (27.0-31.0); MEAN CORPUSCULAR HGB CONC 31.8 g/dL (33.0-37.0); MEAN PLATELET VOLUME 7.8 fL (7.2-11.7); MONO # 0.9 K/uL (0.0-0.8); MONO % 6.1 % (0.0-10.0); NRBC % 0.2 % (0.0-2.0); PLATELET COUNT 231 K/uL (130-400); RED CELL DISTRIBUTION WIDTH 16.2 % (11.5-14.5); WHITE BLOOD COUNT 15.1 K/uL (4.8-10.8)
[2017-05-26 06:32] LABS: CHLORIDE 99 mmol/L (98-107); SODIUM 141 mmol/L (132-148)
[2017-05-26 06:33] LABS: POTASSIUM 3.4 mmol/L (3.6-5.2)
[2017-05-26 06:34] LABS: GFR AFRICAN-AMERICAN > 60
[2017-05-26 06:35] LABS: ALB/GLOB RATIO 1.1 (1.0-2.1); ALKALINE PHOSPHATASE 67 U/L (38-126); ALT/SGPT 23 U/L (9-52); AST/SGOT 22 U/L (14-36); BILIRUBIN,TOTAL 0.7 mg/dL (0.2-1.3); BLOOD UREA NITROGEN 40 mg/dL (7-17); CALCIUM 8.3 mg/dl (8.6-10.4); CARBON DIOXIDE 31 mmol/L (22-30); GLUCOSE,RANDOM 145 mg/dL (65-105); PHOSPHOROUS 3.3 mg/dL (2.5-4.5); TOTAL PROTEIN 6.4 g/dL (6.3-8.3)
[2017-05-26 06:36] LABS: MAGNESIUM 2.3 mg/dL (1.6-2.3)
[2017-05-26] MEDS ORDERED: Potassium Chloride 20 mEq ER Tab PO ONE ×2 (07:39→08:45)
--- NOTE | 2017-05-26 07:57 | CP.CCUPN ---
<Chip Srinivasan - Last Filed: 05/26/17 13:02> CCU Subjective - Physician Review Subjective (Free Text): Patient seen and examined at bedside. Patient remains intubated, sedated and still hypoxic. Per nursing staff, no acute events overnight and remains easily arousable. Suction from ET tube has whitish secretions. ROS not obtained due to current status. Case discussed with house-staff; medical records and chart reviewed and labs discussed. 05/26/17 07:44 CCU Objective - Vital Signs / Intake & Output Vital Signs (Last 4 hours): Vital Signs Pulse Resp BP Pulse Ox 05/26/17 06:00 72 18 145/65 92 L 05/26/17 05:00 77 18 92 L 05/26/17 04:59 83 18 140/66 92 L 05/26/17 04:00 76 18 92 L 05/26/17 03:59 82 18 139/67 91 L Intake and Output (Last 8hrs): Intake & Output 05/25/17 05/26/17 05/26/17 22:59 06:59 14:59 Intake Total 650.4 650.4 Output Total 510 450 Balance 140.4 200.4 Weight 270 lb 8.115 oz Intake: IV 200 200 Intake, IV Amount 210.4 210.4 Right Wrist 210.4 210.4 Tube Feeding 240 240 Output: Urine 510 450 Urethral (Saenz) 510 450 - Physical Exam Head: Positive for: Atraumatic, Normocephalic Pupils: Positive for: PERRL Extroacular Muscles: Positive for: EOMI Mouth: Positive for: Other (intubated; Suction from ET tube has whitish secretions) Respiratory/Chest: Positive for: Wheezes Cardiovascular: Positive for: Regular Rate and Rhythm, Normal S1, S2 Abdomen: Positive for: Normal Bowel Sounds. Negative for: Tenderness Neurological: Positive for: Other (Responding to deep stimuli) Psychiatric: Positive for: Other - Medications Active Medications: Active Medications Generic Name Dose Route Start Last Admin Trade Name Freq PRN Reason Stop Dose Admin Acetylcysteine 4 ml 05/25/17 09:15 05/26/17 01:31 Acetylcysteine 20% INH 4 ml RQ6 ALISA Administration Albuterol/Ipratropium 3 ml 05/23/17 14:00 05/26/17 01:31 Duoneb 3 Mg/0.5 Mg (3 Ml) Ud INH 3 ml RQ6 ALISA Administration Aspirin 81 mg 05/25/17 10:00 05/25/17 09:53 Aspirin Chewable PO 81 mg DAILY ALISA Administration Diltiazem HCl 30 mg 05/23/17 10:00 05/25/17 22:20 Cardizem PO 30 mg QID ALISA Administration Docusate Sodium 100 mg 05/25/17 10:00 05/25/17 17:48 Colace NG 100 mg TID ALISA Administration Dorzolamide HCl 10 ml 05/22/17 18:00 05/25/17 17:48 Trusopt OU 1 drop TID ALSIA Administration Enalapril Maleate 10 mg 05/23/17 10:00 05/25/17 09:53 Vasotec PO 10 mg DAILY ALISA Administration Enoxaparin Sodium 120 mg 05/23/17 22:00 05/25/17 22:20 Lovenox SC 120 mg Q12 ALISA Administration Propofol 1,000 mg in 100 mls @ 3.742 mls/hr 05/22/17 18:47 05/26/17 05:10 Diprivan IV 35.14 mcg/kg/min .Q24H PRN 26.3 mls/hr Agitation Administration Protocol 5 MCG/KG/MIN Methylprednisolone 40 mg 05/25/17 10:00 05/25/17 22:21 Solu-Medrol IV 40 mg Q12 ALISA Administration Montelukast Sodium 10 mg 05/23/17 10:00 05/25/17 10:46 Singulair PO 10 mg DAILY ALISA Administration Multivitamins 1 tab 05/22/17 13:45 05/25/17 09:53 Hexavitamin PO 1 tab DAILY ALISA Administration Pantoprazole Sodium 40 mg 05/23/17 10:00 05/25/17 10:45 Protonix Susp NG 40 mg DAILY ALISA Administration Rosuvastatin Calcium 10 mg 05/22/17 22:00 05/25/17 22:21 Crestor PO 10 mg HS ALISA Administration Torsemide 20 mg 05/23/17 10:00 05/25/17 09:54 Demadex PO 20 mg DAILY ALISA Administration - Patient Studies Lab Studies: Microbiology Studies 05/22/17 16:25 Blood Culture - Preliminary Blood-Venous NO GROWTH AFTER 3 DAYS 05/22/17 16:55 Blood Culture - Preliminary Blood-Venous NO GROWTH AFTER 3 DAYS Lab Studies 05/26/17 05/26/17 05/26/17 Range/Units 06:14 06:14 04:35 WBC 15.1 H (4.8-10.8) K/uL RBC 4.96 (3.80-5.20) Mil/uL Hgb 13.2 (11.0-16.0) g/dL Hct 41.5 (34.0-47.0) % MCV 83.6 (81.0-99.0) fL MCH 26.6 L (27.0-31.0) pg MCHC 31.8 L (33.0-37.0) g/dL RDW 16.2 H (11.5-14.5) % Plt Count 231 (130-400) K/uL MPV 7.8 (7.2-11.7) fL Neut % (Auto) 91.0 H (50.0-75.0) % Lymph % (Auto) 2.7 L (20.0-40.0) % [place] % (Auto) 6.1 (0.0-10.0) % Eos % (Auto) 0.0 (0.0-4.0) % Baso % (Auto) 0.2 (0.0-2.0) % Neut # 13.7 H (1.8-7.0) K/uL Lymph # 0.4 L (1.0-4.3) K/uL [place] # 0.9 H (0.0-0.8) K/uL Eos # 0.0 (0.0-0.7) K/uL Baso # 0.0 (0.0-0.2) K/uL Neutrophils % (Manual) (50-75) % Band Neutrophils % (0-2) % Lymphocytes % (Manual) (20-40) % Monocytes % (Manual) (0-10) % Platelet Estimate (NORMAL) Large Platelets [place] Cells Puncture Site Rr pCO2 42 (35-45) mm/Hg pO2 59 L (80-100) mm/Hg HCO3 35.6 H (21-28) mmol/L ABG pH 7.56 H (7.35-7.45) ABG Total CO2 38.9 H (22-28) mmol/L ABG O2 Saturation 94.6 L (95-98) % ABG Base Excess 13.9 H (-2.0-3.0) mmol/L ABG Hemoglobin 13.1 (11.7-17.4) g/dL ABG Carboxyhemoglobin 1.8 H (0.5-1.5) % POC ABG HHb (Measured) 5.2 H (0.0-5.0) % ABG Methemoglobin 1.0 (0.0-3.0) % Sj Test Pos A-a O2 Difference 316.0 mm/Hg Respiratory Index 5.4 Hgb O2 Saturation 91.9 L (95.0-98.0) % Vent Mode Prvc Mechanical Rate 18 FiO2 60.0 % Tidal Volume 500 PEEP 5 Sodium 141 (132-148) mmol/L Potassium 3.4 L (3.6-5.2) mmol/L Chloride 99 (98-107) mmol/L Carbon Dioxide 31 H (22-30) mmol/L Anion Gap 14 (10-20) BUN 40 H (7-17) mg/dL Creatinine 0.6 L (0.7-1.2) MG/DL Est GFR ( Amer) > 60 Est GFR (Non-Af Amer) > 60 Random Glucose 145 H (65-105) mg/dL Calcium 8.3 L (8.6-10.4) mg/dl Phosphorus 3.3 (2.5-4.5) mg/dL Magnesium 2.3 (1.6-2.3) mg/dL Total Bilirubin 0.7 (0.2-1.3) mg/dL AST 22 (14-36) U/L ALT 23 (9-52) U/L Alkaline Phosphatase 67 (38-126) U/L Total Protein 6.4 (6.3-8.3) g/dL Albumin 3.3 L (3.5-5.0) g/dL Globulin 3.1 (2.2-3.9) gm/dL Albumin/Globulin Ratio 1.1 (1.0-2.1) 05/25/17 Range/Units 06:31 WBC (4.8-10.8) K/uL RBC (3.80-5.20) Mil/uL Hgb (11.0-16.0) g/dL Hct (34.0-47.0) % MCV (81.0-99.0) fL MCH (27.0-31.0) pg MCHC (33.0-37.0) g/dL RDW (11.5-14.5) % Plt Count (130-400) K/uL MPV (7.2-11.7) fL Neut % (Auto) (50.0-75.0) % Lymph % (Auto) (20.0-40.0) % [place] % (Auto) (0.0-10.0) % Eos % (Auto) (0.0-4.0) % Baso % (Auto) (0.0-2.0) % Neut # (1.8-7.0) K/uL Lymph # (1.0-4.3) K/uL [place] # (0.0-0.8) K/uL Eos # (0.0-0.7) K/uL Baso # (0.0-0.2) K/uL Neutrophils % (Manual) 92 H (50-75) % Band Neutrophils % 1 (0-2) % Lymphocytes % (Manual) 4 L (20-40) % Monocytes % (Manual) 3 (0-10) % Platelet Estimate Normal (NORMAL) Large Platelets Present [place] Cells Slight Puncture Site pCO2 (35-45) mm/Hg pO2 (80-100) mm/Hg HCO3 (21-28) mmol/L ABG pH (7.35-7.45) ABG Total CO2 (22-28) mmol/L ABG O2 Saturation (95-98) % ABG Base Excess (-2.0-3.0) mmol/L ABG Hemoglobin (11.7-17.4) g/dL ABG Carboxyhemoglobin (0.5-1.5) % POC ABG HHb (Measured) (0.0-5.0) % ABG Methemoglobin (0.0-3.0) % Sj Test A-a O2 Difference mm/Hg Respiratory Index Hgb O2 Saturation (95.0-98.0) % Vent Mode Mechanical Rate FiO2 % Tidal Volume PEEP Sodium (132-148) mmol/L Potassium (3.6-5.2) mmol/L Chloride (98-107) mmol/L Carbon Dioxide (22-30) mmol/L Anion Gap (10-20) BUN (7-17) mg/dL Creatinine (0.7-1.2) MG/DL Est GFR ( Amer) Est GFR (Non-Af Amer) Random Glucose (65-105) mg/dL Calcium (8.6-10.4) mg/dl Phosphorus (2.5-4.5) mg/dL Magnesium (1.6-2.3) mg/dL Total Bilirubin (0.2-1.3) mg/dL AST (14-36) U/L ALT (9-52) U/L Alkaline Phosphatase (38-126) U/L Total Protein (6.3-8.3) g/dL Albumin (3.5-5.0) g/dL Globulin (2.2-3.9) gm/dL Albumin/Globulin Ratio (1.0-2.1) Laboratory Results - last 24 hr 05/25/17 05/26/17 05/26/17 06:31 04:35 06:14 WBC 15.1 H RBC 4.96 Hgb 13.2 Hct 41.5 MCV 83.6 MCH 26.6 L MCHC 31.8 L RDW 16.2 H Plt Count 231 MPV 7.8 Neut % (Auto) 91.0 H Lymph % (Auto) 2.7 L [place] % (Auto) 6.1 Eos % (Auto) 0.0 Baso % (Auto) 0.2 Neut # 13.7 H Lymph # 0.4 L [place] # 0.9 H Eos # 0.0 Baso # 0.0 Neutrophils % (Manual) 92 H Band Neutrophils % 1 Lymphocytes % (Manual) 4 L Monocytes % (Manual) 3 Platelet Estimate Normal Large Platelets Present [place] Cells Slight Puncture Site Rr pCO2 42 pO2 59 L HCO3 35.6 H ABG pH 7.56 H ABG Total CO2 38.9 H ABG O2 Saturation 94.6 L ABG Base Excess 13.9 H ABG Hemoglobin 13.1 ABG Carboxyhemoglobin 1.8 H POC ABG HHb (Measured) 5.2 H ABG Methemoglobin 1.0 Sj Test Pos A-a O2 Difference 316.0 Respiratory Index 5.4 Hgb O2 Saturation 91.9 L Vent Mode Prvc Mechanical Rate 18 FiO2 60.0 Tidal Volume 500 PEEP 5 Sodium Potassium Chloride Carbon Dioxide Anion Gap BUN Creatinine Est GFR ( Amer) Est GFR (Non-Af Amer) Random Glucose Calcium Phosphorus Magnesium Total Bilirubin AST ALT Alkaline Phosphatase Total Protein Albumin Globulin Albumin/Globulin Ratio 05/26/17 06:14 WBC RBC Hgb Hct MCV MCH MCHC RDW Plt Count MPV Neut % (Auto) Lymph % (Auto) [place] % (Auto) Eos % (Auto) Baso % (Auto) Neut # Lymph # [place] # Eos # Baso # Neutrophils % (Manual) Band Neutrophils % Lymphocytes % (Manual) Monocytes % (Manual) Platelet Estimate Large Platelets [place] Cells Puncture Site pCO2 pO2 HCO3 ABG pH ABG Total CO2 ABG O2 Saturation ABG Base Excess ABG Hemoglobin ABG Carboxyhemoglobin POC ABG HHb (Measured) ABG Methemoglobin Sj Test A-a O2 Difference Respiratory Index Hgb O2 Saturation Vent Mode Mechanical Rate FiO2 Tidal Volume PEEP Sodium 141 Potassium 3.4 L Chloride 99 Carbon Dioxide 31 H Anion Gap 14 BUN 40 H Creatinine 0.6 L Est GFR ( Amer) > 60 Est GFR (Non-Af Amer) > 60 Random Glucose 145 H Calcium 8.3 L Phosphorus 3.3 Magnesium 2.3 Total Bilirubin 0.7 AST 22 ALT 23 Alkaline Phosphatase 67 Total Protein 6.4 Albumin 3.3 L Globulin 3.1 Albumin/Globulin Ratio 1.1 Review of Systems - Review of Systems Systems not reviewed;Unavailable: Intubated Critical Care Progress Note - Vent Settings TIDAL VOLUME:: 500 RESP RATE:: 18 FIO2:: 60 PEEP:: 7 Assessment/Plan (1) Respiratory acidosis Current Visit: Yes Status: Acute (2) COPD exacerbation Current Visit: Yes Status: Acute (3) Elevated troponin Current Visit: Yes Status: Acute (4) Atrial fibrillation, new onset Current Visit: Yes Status: Acute (5) Cardiomegaly Current Visit: Yes Status: Acute (6) Elevated WBCs Current Visit: Yes Status: Acute (7) Abnormal RBC indices Current Visit: Yes Status: Acute (8) History of hypertension Current Visit: Yes Status: Acute (9) History of hyperlipidemia Current Visit: Yes Status: Acute (10) Change in mental state Current Visit: Yes Status: Acute (11) History of dementia Current Visit: Yes Status: Acute (12) History of gastroesophageal reflux (GERD) Current Visit: Yes Status: Acute (13) History of glaucoma Current Visit: Yes Status: Acute (14) Prophylactic measure Current Visit: Yes Status: Acute - Assessment and Plan (Free Text) Assessment: 76 year old female with PMHx of COPD, Asthma, HTN, Cardiomegaly, Dementia presenting with Respiratory acidosis likely 2/2 COPD exacerbation Pulmonary: Respiratory acidosis likely 2/2 COPD exacerbation; CT chest suspicious of left lower lobe pneumonia - Intubated (since 05/22) and sedated on Diprivan drip 1,000mg daily - Database Management Specialist on board: Dr. Camejo - CT chest suspicious of left lower lobe pneumonia - 93% O2 Sat today (05/26): pending official report from bilateral lower extremity venous duplex - - Solumedrol 40 mg IV Q12 - Singular 10 mg PO daily - Duoneb 3 ml INH RQ6 - Mucomyst 4 ml INH RQ6 Cardio: Elevated troponin, A-fib, Cardiomegaly with Diastolic Heart Failure, HTN , HLD - Troponins elevated most likely 2/2 to CHF/COPD and hypoxemia - ProBNP elevated most likely 2/2 to COPD/CHF - [id number] score is 4. Continue therapeutic Lovenox 120 mg SC Q12 - MCFP anticoagulation difficult due to dementia and fall risk - 05/22 EKG: inferior, anterolateral ischemia. A-fib - 05/22 CXR: marked cardiomegaly. No focal consolidation, no pericardial effusion , no pneumothorax - 05/22 Echo: EF 60-65% with normal LVSF, basal anteroseptal wall hypokinesis. Moderate pulmonary hypertension. Right ventricle moderately dilated. - No further cardiac workup or intervention at this time per Cardiology, Dr. Hart - - Diltiazem 30 mg PO Q6 - Lovenox 120mg sc q12 - Enalapril 10 mg PO daily - Crestor 10 mg PO HS - Torsemide 20 mg PO daily - ASA 81 mg PO daily ID: Elevated WBCs; CT chest suspicious of left lower lobe pneumonia - Blood and urine culture from 05/22 negative - Afebrile, possible stress response or transient increased due to steroid use - CT chest w/ evidence of left lower lobe pneumonia - F/u trach aspirates cultures - f/u Legionella antigen, Mycoplasma pneumoniae IgM - - Zosyn 3.375 mg IV Q8hr started 05/26/17 - Azithromycin 500 mg IV daily started 05/26/17 - 1x dose: Vanco 1 gr IV given 05/26/17 Neuro: Dementia, altered mental status - continue home meds: Donepezil 5 mg PO HS - 05/[address] w/o contrast: no acute findings. GI: GERD , constipation - Protonix 40 mg NG daily - Start Colace 100 mg NG TID Heme: abnormal RBC indices - Hgb stable - patient has not had a bowel movement in a few days, will discontinue Ferrous sulfate Ophtho: Glaucoma - Dorzolamide 10 ml OU TID Prophylaxis: DVT: Lovenox 120mg SC Q12 GI: Protonix 40 mg NG daily Multivitamins <Toribio Camejo - Last Filed: 05/26/17 17:57> CCU Objective - Vital Signs / Intake & Output Intake and Output (Last 8hrs): Intake & Output 05/26/17 05/26/17 05/26/17 06:59 14:59 22:59 Intake Total 650.4 468.9 Output Total 450 100 Balance 200.4 368.9 Weight 270 lb 8.115 oz Intake: IV 200 200 Intake, IV Amount 210.4 78.9 Right Wrist 210.4 78.9 Tube Feeding 240 90 Other 100 Output: Urine 450 100 Urethral (Saenz) 450 100 - Medications Active Medications: Active Medications Generic Name Dose Route Start Last Admin Trade Name Freq PRN Reason Stop Dose Admin Acetylcysteine 4 ml 05/25/17 09:15 05/26/17 13:53 Acetylcysteine 20% INH 4 ml RQ6 ALISA Administration Albuterol/Ipratropium 3 ml 05/23/17 14:00 05/26/17 13:52 Duoneb 3 Mg/0.5 Mg (3 Ml) Ud INH 3 ml RQ6 ALISA Administration Aspirin 81 mg 05/25/17 10:00 05/26/17 09:02 Aspirin Chewable PO 81 mg DAILY ALISA Administration Diltiazem HCl 30 mg 05/26/17 12:00 05/26/17 17:47 Cardizem PO 30 mg Q6H ALISA Administration Dorzolamide HCl 10 ml 05/22/17 18:00 05/26/17 17:48 Trusopt OU 1 drop TID ALISA Administration Enalapril Maleate 10 mg 05/23/17 10:00 05/26/17 09:02 Vasotec PO 10 mg DAILY ALISA Administration Enoxaparin Sodium 120 mg 05/23/17 22:00 05/26/17 09:14 Lovenox SC 120 mg Q12 ALISA Administration Propofol 1,000 mg in 100 mls @ 3.742 mls/hr 05/22/17 18:47 05/26/17 14:15 Diprivan IV 26.72 mcg/kg/min .Q24H PRN 20 mls/hr Agitation Administration Protocol 5 MCG/KG/MIN Piperacillin Sod/Tazobactam 100 mls @ 200 mls/hr 05/26/17 10:30 05/26/17 17: 47 Sod 3.375 gm/ Sodium Chloride IVPB 200 mls/hr Q8H ALISA Administration Azithromycin 500 mg/ Sodium 250 mls @ 250 mls/hr 05/26/17 11:00 05/26/17 11: 33 Chloride IVPB 250 mls/hr DAILY@1100 ALISA Administration Methylprednisolone 40 mg 05/25/17 10:00 05/26/17 09:01 Solu-Medrol IV 40 mg Q12 ALISA Administration Montelukast Sodium 10 mg 05/23/17 10:00 05/26/17 09:02 Singulair PO 10 mg DAILY ALISA Administration Multivitamins 1 tab 05/22/17 13:45 05/26/17 09:02 Hexavitamin PO 1 tab DAILY ALISA Administration Pantoprazole Sodium 40 mg 05/23/17 10:00 05/26/17 09:02 Protonix Susp NG 40 mg DAILY ALISA Administration Rosuvastatin Calcium 10 mg 05/22/17 22:00 05/25/17 22:21 Crestor PO 10 mg HS ALISA Administration Torsemide 20 mg 05/23/17 10:00 05/26/17 09:02 Demadex PO 20 mg DAILY ALISA Administration - Patient Studies Lab Studies: Microbiology Studies 05/22/17 16:25 Blood Culture - Preliminary Blood-Venous NO GROWTH AFTER 3 DAYS 05/22/17 16:55 Blood Culture - Preliminary Blood-Venous NO GROWTH AFTER 3 DAYS Lab Studies 05/26/17 05/26/17 05/26/17 Range/Units 09:14 06:14 06:14 WBC 15.1 H (4.8-10.8) K/uL RBC 4.96 (3.80-5.20) Mil/uL Hgb 13.2 (11.0-16.0) g/dL Hct 41.5 (34.0-47.0) % MCV 83.6 (81.0-99.0) fL MCH 26.6 L (27.0-31.0) pg MCHC 31.8 L (33.0-37.0) g/dL RDW 16.2 H (11.5-14.5) % Plt Count 231 (130-400) K/uL MPV 7.8 (7.2-11.7) fL Neut % (Auto) 91.0 H (50.0-75.0) % Lymph % (Auto) 2.7 L (20.0-40.0) % [place] % (Auto) 6.1 (0.0-10.0) % Eos % (Auto) 0.0 (0.0-4.0) % Baso % (Auto) 0.2 (0.0-2.0) % Neut # 13.7 H (1.8-7.0) K/uL Lymph # 0.4 L (1.0-4.3) K/uL [place] # 0.9 H (0.0-0.8) K/uL Eos # 0.0 (0.0-0.7) K/uL Baso # 0.0 (0.0-0.2) K/uL Neutrophils % (Manual) 91 H (50-75) % Band Neutrophils % 1 (0-2) % Lymphocytes % (Manual) 4 L (20-40) % Monocytes % (Manual) 4 (0-10) % Platelet Estimate Normal (NORMAL) RBC Morphology Normal Puncture Site pCO2 (35-45) mm/Hg pO2 (80-100) mm/Hg HCO3 (21-28) mmol/L ABG pH (7.35-7.45) ABG Total CO2 (22-28) mmol/L ABG O2 Saturation (95-98) % ABG Base Excess (-2.0-3.0) mmol/L ABG Hemoglobin (11.7-17.4) g/dL ABG Carboxyhemoglobin (0.5-1.5) % POC ABG HHb (Measured) (0.0-5.0) % ABG Methemoglobin (0.0-3.0) % Sj Test A-a O2 Difference mm/Hg Respiratory Index Hgb O2 Saturation (95.0-98.0) % Vent Mode Mechanical Rate FiO2 % Tidal Volume PEEP Sodium 141 (132-148) mmol/L Potassium 3.4 L (3.6-5.2) mmol/L Chloride 99 (98-107) mmol/L Carbon Dioxide 31 H (22-30) mmol/L Anion Gap 14 (10-20) BUN 40 H (7-17) mg/dL Creatinine 0.6 L (0.7-1.2) MG/DL Est GFR ( Amer) > 60 Est GFR (Non-Af Amer) > 60 Random Glucose 145 H (65-105) mg/dL Calcium 8.3 L (8.6-10.4) mg/dl Phosphorus 3.3 (2.5-4.5) mg/dL Magnesium 2.3 (1.6-2.3) mg/dL Total Bilirubin 0.7 (0.2-1.3) mg/dL AST 22 (14-36) U/L ALT 23 (9-52) U/L Alkaline Phosphatase 67 (38-126) U/L Total Protein 6.4 (6.3-8.3) g/dL Albumin 3.3 L (3.5-5.0) g/dL Globulin 3.1 (2.2-3.9) gm/dL Albumin/Globulin Ratio 1.1 (1.0-2.1) Ur L.pneumophila Ag Negative (NEGATIVE) Mycoplasma pneumon IgM Negative (NEGATIVE) 05/26/17 Range/Units 04:35 WBC (4.8-10.8) K/uL RBC (3.80-5.20) Mil/uL Hgb (11.0-16.0) g/dL Hct (34.0-47.0) % MCV (81.0-99.0) fL MCH (27.0-31.0) pg MCHC (33.0-37.0) g/dL RDW (11.5-14.5) % Plt Count (130-400) K/uL MPV (7.2-11.7) fL Neut % (Auto) (50.0-75.0) % Lymph % (Auto) (20.0-40.0) % [place] % (Auto) (0.0-10.0) % Eos % (Auto) (0.0-4.0) % Baso % (Auto) (0.0-2.0) % Neut # (1.8-7.0) K/uL Lymph # (1.0-4.3) K/uL [place] # (0.0-0.8) K/uL Eos # (0.0-0.7) K/uL Baso # (0.0-0.2) K/uL Neutrophils % (Manual) (50-75) % Band Neutrophils % (0-2) % Lymphocytes % (Manual) (20-40) % Monocytes % (Manual) (0-10) % Platelet Estimate (NORMAL) RBC Morphology Puncture Site Rr pCO2 42 (35-45) mm/Hg pO2 59 L (80-100) mm/Hg HCO3 35.6 H (21-28) mmol/L ABG pH 7.56 H (7.35-7.45) ABG Total CO2 38.9 H (22-28) mmol/L ABG O2 Saturation 94.6 L (95-98) % ABG Base Excess 13.9 H (-2.0-3.0) mmol/L ABG Hemoglobin 13.1 (11.7-17.4) g/dL ABG Carboxyhemoglobin 1.8 H (0.5-1.5) % POC ABG HHb (Measured) 5.2 H (0.0-5.0) % ABG Methemoglobin 1.0 (0.0-3.0) % Sj Test Pos A-a O2 Difference 316.0 mm/Hg Respiratory Index 5.4 Hgb O2 Saturation 91.9 L (95.0-98.0) % Vent Mode Prvc Mechanical Rate 18 FiO2 60.0 % Tidal Volume 500 PEEP 5 Sodium (132-148) mmol/L Potassium (3.6-5.2) mmol/L Chloride (98-107) mmol/L Carbon Dioxide (22-30) mmol/L Anion Gap (10-20) BUN (7-17) mg/dL Creatinine (0.7-1.2) MG/DL Est GFR ( Amer) Est GFR (Non-Af Amer) Random Glucose (65-105) mg/dL Calcium (8.6-10.4) mg/dl Phosphorus (2.5-4.5) mg/dL Magnesium (1.6-2.3) mg/dL Total Bilirubin (0.2-1.3) mg/dL AST (14-36) U/L ALT (9-52) U/L Alkaline Phosphatase (38-126) U/L Total Protein (6.3-8.3) g/dL Albumin (3.5-5.0) g/dL Globulin (2.2-3.9) gm/dL Albumin/Globulin Ratio (1.0-2.1) Ur L.pneumophila Ag (NEGATIVE) Mycoplasma pneumon IgM (NEGATIVE) Laboratory Results - last 24 hr 05/26/17 05/26/17 05/26/17 04:35 06:14 06:14 WBC 15.1 H RBC 4.96 Hgb 13.2 Hct 41.5 MCV 83.6 MCH 26.6 L MCHC 31.8 L RDW 16.2 H Plt Count 231 MPV 7.8 Neut % (Auto) 91.0 H Lymph % (Auto) 2.7 L [place] % (Auto) 6.1 Eos % (Auto) 0.0 Baso % (Auto) 0.2 Neut # 13.7 H Lymph # 0.4 L [place] # 0.9 H Eos # 0.0 Baso # 0.0 Neutrophils % (Manual) 91 H Band Neutrophils % 1 Lymphocytes % (Manual) 4 L Monocytes % (Manual) 4 Platelet Estimate Normal RBC Morphology Normal Puncture Site Rr pCO2 42 pO2 59 L HCO3 35.6 H ABG pH 7.56 H ABG Total CO2 38.9 H ABG O2 Saturation 94.6 L ABG Base Excess 13.9 H ABG Hemoglobin 13.1 ABG Carboxyhemoglobin 1.8 H POC ABG HHb (Measured) 5.2 H ABG Methemoglobin 1.0 Sj Test Pos A-a O2 Difference 316.0 Respiratory Index 5.4 Hgb O2 Saturation 91.9 L Vent Mode Prvc Mechanical Rate 18 FiO2 60.0 Tidal Volume 500 PEEP 5 Sodium 141 Potassium 3.4 L Chloride 99 Carbon Dioxide 31 H Anion Gap 14 BUN 40 H Creatinine 0.6 L Est GFR ( Amer) > 60 Est GFR (Non-Af Amer) > 60 Random Glucose 145 H Calcium 8.3 L Phosphorus 3.3 Magnesium 2.3 Total Bilirubin 0.7 AST 22 ALT 23 Alkaline Phosphatase 67 Total Protein 6.4 Albumin 3.3 L Globulin 3.1 Albumin/Globulin Ratio 1.1 Ur L.pneumophila Ag Mycoplasma pneumon IgM 05/26/17 09:14 WBC RBC Hgb Hct MCV MCH MCHC RDW Plt Count MPV Neut % (Auto) Lymph % (Auto) [place] % (Auto) Eos % (Auto) Baso % (Auto) Neut # Lymph # [place] # Eos # Baso # Neutrophils % (Manual) Band Neutrophils % Lymphocytes % (Manual) Monocytes % (Manual) Platelet Estimate RBC Morphology Puncture Site pCO2 pO2 HCO3 ABG pH ABG Total CO2 ABG O2 Saturation ABG Base Excess ABG Hemoglobin ABG Carboxyhemoglobin POC ABG HHb (Measured) ABG Methemoglobin Sj Test A-a O2 Difference Respiratory Index Hgb O2 Saturation Vent Mode Mechanical Rate FiO2 Tidal Volume PEEP Sodium Potassium Chloride Carbon Dioxide Anion Gap BUN Creatinine Est GFR ( Amer) Est GFR (Non-Af Amer) Random Glucose Calcium Phosphorus Magnesium Total Bilirubin AST ALT Alkaline Phosphatase Total Protein Albumin Globulin Albumin/Globulin Ratio Ur L.pneumophila Ag Negative Mycoplasma pneumon IgM Negative Assessment/Plan (1) Acute respiratory failure with hypoxia and hypercapnia Current Visit: Yes Status: Acute (2) Atrial fibrillation, new onset Current Visit: Yes Status: Acute (3) COPD exacerbation Current Visit: Yes Status: Acute Attending/Attestation - Attestation I have personally seen and examined this patient.: Yes I have fully participated in the care of the patient.: Yes I have reviewed all pertinent clinical information: Yes Notes (Text): 05/26/17 17:55 Patient seen and examined in the intensive care unit. Case discussed with house staff in the morning. she remains intubated on ventilatory support requiring high FiO2 CAT scan of the chest consistent with bilateral pneumonia Started on IV antibiotics Follow-up culture and sensitivity Case discussed with family at length Critical care time 30 minutes Continue feeding
[2017-05-26 08:24] LABS: NEUTROPHIL 91 % (50-75); TOTAL CELLS COUNTED 100
--- NOTE | 2017-05-26 08:37 | RAD ---
Chest x-ray single frontal view History: Intubation. Comparison: 05/25/2017 Findings: Lines and tubes stable position. Persistent moderate venous congestion with prominent bibasilar airspace opacities as well as small bilateral pleural effusions. Cardiomegaly. Degenerative changes in the spine and shoulders. Scattered nodularity in both lungs. Impression: No significant interval change.
[2017-05-26] MEDS: Dorzolamide 2% Opht Sol 10ml OU SCH ×3 (09:02→17:48)
[2017-05-26] MEDS: Multiple Vitamins Tab PO SCH (09:02)
[2017-05-26] MEDS: Pantoprazole 40 mg Susp UD NG SCH (09:02)
[2017-05-26] MEDS: Enoxaparin 120 mg Syringe SC SCH ×2 (09:14→22:55)
[2017-05-26] MEDS: Azithromycin 500 MG in Sodium Chloride 0.9% 250 ML IVPB SCH (11:33)
[2017-05-26] MEDS: Piperacillin/Tazobact 3.375 GM in Sodium Chloride 100 ML IVPB SCH ×2 (11:41→17:47)
--- NOTE | 2017-05-26 15:26 | VASCLAB ---
PROCEDURE: Lower Extremity Venous Duplex Exam. HISTORY: COPD, CHF PRIORS: None. TECHNIQUE: Bilateral common femoral, femoral, popliteal and posterior tibial, peroneal and great saphenous veins were evaluated. Flow was assessed with color Doppler, compressibility, assessment of phasic flow and augmentation response. Report prepared by PASTOR Condon FINDINGS: RIGHT: 1. Common Femoral Vein: 1.1. Compressibility - Fully compressible: Thrombus - None : Flow - Phasic: Augmentation -Normal: Reflux - None. 2. Femoral Vein: 2.1. Compressibility - Fully compressible: Thrombus - None : Flow - Phasic: Augmentation -Normal: Reflux - None. 3. Popliteal Vein: 3.1. Compressibility - Fully compressible: Thrombus - None : Flow - Phasic: Augmentation -Normal: Reflux - None. 4. Posterior Tibial Vein: 4.1. Compressibility - Fully compressible: Thrombus - None: Flow - Phasic: Augmentation -Normal: Reflux - None. 5. Peroneal Vein: 5.1. Compressibility - Fully compressible: Thrombus - None: Flow - Phasic: Augmentation -Normal: Reflux - None. 6. Great Saphenous Vein: 6.1. Compressibility - Fully compressible: Thrombus - None: Flow - Phasic: Augmentation - Normal: Reflux - None. LEFT: 1. Common Femoral Vein: 1.1. Compressibility - Fully compressible: Thrombus - None: Flow - Phasic: Augmentation -Normal: Reflux - None. 2. Femoral Vein: 2.1. Compressibility - Fully compressible: Thrombus - None: Flow - Phasic: Augmentation -Normal: Reflux - None. 3. Popliteal Vein: 3.1. Compressibility - Fully compressible: Thrombus - None : Flow - Phasic: Augmentation -Normal: Reflux - None. 4. Posterior Tibial Vein: 4.1. Unable to clearly image due to swelling 5. Peroneal Vein: 5.1. Unable to clearly image due to swelling 6. Great Saphenous Vein: 6.1. Compressibility - Fully compressible: Thrombus - None: Flow - Phasic: Augmentation - Normal: Reflux - None. OTHER FINDINGS: Technically difficult examination, due to patient body habitus. IMPRESSION: Right: No evidence of deep or superficial vein thrombosis of the right lower extremity. Normal valve function noted of the right side. Left: No evidence of deep or superficial vein thrombosis of the left lower extremity, for those imaged veins. Normal valve function noted of the left side.
--- NOTE | 2017-05-26 15:46 | CP.PCM.PN ---
Subjective - Date & Time of Evaluation Date of Evaluation: 05/26/17 Time of Evaluation: 13:00 - Subjective Subjective: Patient was seen and examined in ICU. Patient is currently intubated and sedated Objective - Vital Signs/Intake and Output Vital Signs (last 24 hours): Temp Pulse Resp BP Pulse Ox 98.6 F 97 H 29 H 144/61 92 L 05/26/17 08:00 05/26/17 10:00 05/26/17 10:00 05/26/17 10:00 05/26/17 10:00 Intake and Output: 05/26/17 05/26/17 06:59 18:59 Intake Total 975.6 468.9 Output Total 650 100 Balance 325.6 368.9 - Medications Medications: Current Medications Acetylcysteine (Acetylcysteine 20%) 4 ml INH RQ6 [facility] Last Admin: 05/26/17 13:53 Dose: 4 ml Albuterol/Ipratropium (Duoneb 3 Mg/0.5 Mg (3 Ml) Ud) 3 ml INH RQ6 [facility] Last Admin: 05/26/17 13:52 Dose: 3 ml Aspirin (Aspirin Chewable) 81 mg PO DAILY [facility] Last Admin: 05/26/17 09:02 Dose: 81 mg Diltiazem HCl (Cardizem) 30 mg PO Q6H [facility] Last Admin: 05/26/17 13:05 Dose: Not Given Dorzolamide HCl (Trusopt) 10 ml OU TID [facility] Last Admin: 05/26/17 13:05 Dose: 1 drop Enalapril Maleate (Vasotec) 10 mg PO DAILY [facility] Last Admin: 05/26/17 09:02 Dose: 10 mg Enoxaparin Sodium (Lovenox) 120 mg SC Q12 [facility] Last Admin: 05/26/17 09:14 Dose: 120 mg Propofol (Diprivan) 1,000 mg in 100 mls @ 3.742 mls/hr IV .Q24H PRN; Protocol; 5 MCG/KG/MIN PRN Reason: Agitation Last Admin: 05/26/17 14:15 Dose: 26.72 mcg/kg/min, 20 mls/hr Piperacillin Sod/Tazobactam (Sod 3.375 gm/ Sodium Chloride) 100 mls @ 200 mls/ hr IVPB Q8H [facility] Last Admin: 05/26/17 11:41 Dose: 200 mls/hr Azithromycin 500 mg/ Sodium (Chloride) 250 mls @ 250 mls/hr IVPB DAILY@1100 [facility] Last Admin: 05/26/17 11:33 Dose: 250 mls/hr Methylprednisolone (Solu-Medrol) 40 mg IV Q12 [facility] Last Admin: 05/26/17 09:01 Dose: 40 mg Montelukast Sodium (Singulair) 10 mg PO DAILY [facility] Last Admin: 05/26/17 09:02 Dose: 10 mg Multivitamins (Hexavitamin) 1 tab PO DAILY [facility] Last Admin: 05/26/17 09:02 Dose: 1 tab Pantoprazole Sodium (Protonix Susp) 40 mg NG DAILY [facility] Last Admin: 05/26/17 09:02 Dose: 40 mg Rosuvastatin Calcium (Crestor) 10 mg PO HS [facility] Last Admin: 05/25/17 22:21 Dose: 10 mg Torsemide (Demadex) 20 mg PO DAILY [facility] Last Admin: 05/26/17 09:02 Dose: 20 mg - Labs Labs: 05/26/17 06:14 05/26/17 06:14 - Head Exam Head Exam: ATRAUMATIC, NORMOCEPHALIC - Eye Exam Eye Exam: Normal appearance - ENT Exam ENT Exam: Mucous Membranes Moist - Respiratory Exam Additional comments: Intubated on ventilator support. - Cardiovascular Exam Cardiovascular Exam: REGULAR RHYTHM, +S1, +S2 - Extremities Exam Extremities Exam: absent: Pedal Edema Assessment and Plan (1) Pneumonia Status: Acute (2) Acute respiratory failure with hypoxia and hypercapnia Status: Acute (3) COPD exacerbation Status: Acute (4) Atrial fibrillation, new onset Status: Acute (5) CHF (congestive heart failure) Status: Acute (6) Elevated WBCs Status: Acute (7) History of hyperlipidemia Status: Acute (8) History of hypertension Status: Acute - Assessment and Plan (Free Text) Plan: Patient started on IV antibiotics and pneumonia. Patient is on Zosyn and the azithromycin. We will continue steroids for COPD exacerbation Patient remains intubated. Weaning trial as per ICU team I discussed the plan of care with the ICU attending.
[2017-05-26 15:53] LABS: LEGIONELLA AG URINE NEGATIVE (NEGATIVE)
[2017-05-27] MEDS: Albuterol-Ipratrop 3 mg / 0.5 (3 ml) UD INH SCH ×4 (02:03→20:10)
[2017-05-27] MEDS: Acetylcysteine 20% Inhal Soln (4ml) INH SCH ×4 (02:04→20:10)
[2017-05-27] MEDS: Piperacillin/Tazobact 3.375 GM in Sodium Chloride 100 ML IVPB SCH ×3 (02:44→17:33)
[2017-05-27 04:54] LABS: ABG ALLEN TEST POS; ABG MECHANICAL RATE 12; ARTERIAL BLOOD GAS MODE PRVC; ARTERIAL BLOOD HGB O2 SAT 94.1 % (95.0-98.0); ATERIAL BLOOD GAS PEEP 5; CARBOXYHEMOGLOBIN 1.9 % (0.5-1.5); DRAW SITE RR; HHB 3.3 % (0.0-5.0); METHEMOGLOBIN 0.7 % (0.0-3.0)
[2017-05-27] MEDS: Propofol 10 mg/ml 1,000 MG/100 ML VIAL IV PRN ×3 (05:20→19:08)
--- NOTE | 2017-05-27 05:32 | CP.PCM.PN ---
Subjective - Date & Time of Evaluation Date of Evaluation: 05/26/17 Time of Evaluation: 17:00 - Subjective Subjective: Patient seen and evaluated Intubated and sedated Objective - Vital Signs/Intake and Output Vital Signs (last 24 hours): Temp Pulse Resp BP Pulse Ox 98.0 F 81 15 131/58 L 96 05/27/17 00:00 05/27/17 04:00 05/27/17 04:00 05/27/17 04:00 05/27/17 04:00 Intake and Output: 05/26/17 05/27/17 18:59 06:59 Intake Total 1768.9 650 Output Total 725 500 Balance 1043.9 150 - Medications Medications: Current Medications Acetylcysteine (Acetylcysteine 20%) 4 ml INH RQ6 [facility] Last Admin: 05/27/17 02:04 Dose: 4 ml Albuterol/Ipratropium (Duoneb 3 Mg/0.5 Mg (3 Ml) Ud) 3 ml INH RQ6 [facility] Last Admin: 05/27/17 02:03 Dose: 3 ml Aspirin (Aspirin Chewable) 81 mg PO DAILY [facility] Last Admin: 05/26/17 09:02 Dose: 81 mg Diltiazem HCl (Cardizem) 30 mg PO Q6H [facility] Last Admin: 05/26/17 23:00 Dose: 30 mg Dorzolamide HCl (Trusopt) 10 ml OU TID [facility] Last Admin: 05/26/17 17:48 Dose: 1 drop Enalapril Maleate (Vasotec) 10 mg PO DAILY [facility] Last Admin: 05/26/17 09:02 Dose: 10 mg Enoxaparin Sodium (Lovenox) 120 mg SC Q12 [facility] Last Admin: 05/26/17 22:55 Dose: 120 mg Propofol (Diprivan) 1,000 mg in 100 mls @ 3.742 mls/hr IV .Q24H PRN; Protocol; 5 MCG/KG/MIN PRN Reason: Agitation Last Admin: 05/26/17 23:20 Dose: 26.72 mcg/kg/min, 19.998 mls/hr Piperacillin Sod/Tazobactam (Sod 3.375 gm/ Sodium Chloride) 100 mls @ 200 mls/ hr IVPB Q8H [facility] Last Admin: 05/26/17 17:47 Dose: 200 mls/hr Azithromycin 500 mg/ Sodium (Chloride) 250 mls @ 250 mls/hr IVPB DAILY@1100 [facility] Last Admin: 05/26/17 11:33 Dose: 250 mls/hr Methylprednisolone (Solu-Medrol) 40 mg IV Q12 [facility] Last Admin: 05/26/17 22:50 Dose: 40 mg Montelukast Sodium (Singulair) 10 mg PO DAILY [facility] Last Admin: 05/26/17 09:02 Dose: 10 mg Multivitamins (Hexavitamin) 1 tab PO DAILY [facility] Last Admin: 05/26/17 09:02 Dose: 1 tab Pantoprazole Sodium (Protonix Susp) 40 mg NG DAILY [facility] Last Admin: 05/26/17 09:02 Dose: 40 mg Rosuvastatin Calcium (Crestor) 10 mg PO HS [facility] Last Admin: 05/26/17 22:50 Dose: 10 mg Torsemide (Demadex) 20 mg PO DAILY [facility] Last Admin: 05/26/17 09:02 Dose: 20 mg - Labs Labs: 05/26/17 06:14 05/26/17 06:14 - Head Exam Head Exam: ATRAUMATIC, NORMAL INSPECTION - Eye Exam Eye Exam: EOMI, PERRL - ENT Exam ENT Exam: Mucous Membranes Moist - Neck Exam Neck Exam: Normal Inspection - Respiratory Exam Respiratory Exam: Clear to Ausculation Bilateral, NORMAL BREATHING PATTERN - Cardiovascular Exam Cardiovascular Exam: Irregular Rhythm, +S1, +S2 - GI/Abdominal Exam GI & Abdominal Exam: Soft, Normal Bowel Sounds - Psychiatric Exam Additional comments: Intubated Assessment and Plan - Assessment and Plan (Free Text) Assessment: (1) Pneumonia Status: Acute (2) Acute respiratory failure with hypoxia and hypercapnia Status: Acute (3) COPD exacerbation Status: Acute (4) Atrial fibrillation, new onset Status: Acute On Lovenox and B blockers (5) CHF (congestive heart failure)/Diastolc Status: Acute (6) Elevated WBCs Status: Acute (7) History of hyperlipidemia Status: Acute (8) History of hypertension Status: Acute Critical care time 40 minutes
[2017-05-27 06:45] LABS: BASO % 0.1 % (0.0-2.0); HEMATOCRIT 41.5 % (34.0-47.0); LYMPH # 0.5 K/uL (1.0-4.3); MEAN CELL VOLUME 83.8 fL (81.0-99.0); MEAN CORPUSCULAR HEMOGLOBIN 26.3 pg (27.0-31.0); MEAN CORPUSCULAR HGB CONC 31.4 g/dL (33.0-37.0); MONO # 0.9 K/uL (0.0-0.8); MONO % 5.5 % (0.0-10.0); NRBC % 0.1 % (0.0-2.0); PLATELET COUNT 247 K/uL (130-400); RED CELL DISTRIBUTION WIDTH 16.7 % (11.5-14.5); WHITE BLOOD COUNT 15.4 K/uL (4.8-10.8)
[2017-05-27 06:56] LABS: CHLORIDE 96 mmol/L (98-107); POTASSIUM 3.3 mmol/L (3.6-5.2); SODIUM 141 mmol/L (132-148)
[2017-05-27 06:58] LABS: ALB/GLOB RATIO 1.1 (1.0-2.1); ALKALINE PHOSPHATASE 58 U/L (38-126); AST/SGOT 25 U/L (14-36); BILIRUBIN,TOTAL 0.7 mg/dL (0.2-1.3); CARBON DIOXIDE 36 mmol/L (22-30); GFR AFRICAN-AMERICAN > 60; TOTAL PROTEIN 5.9 g/dL (6.3-8.3)
[2017-05-27 06:59] LABS: ALT/SGPT 28 U/L (9-52); BLOOD UREA NITROGEN 41 mg/dL (7-17); CALCIUM 8.6 mg/dl (8.6-10.4); GLUCOSE,RANDOM 122 mg/dL (65-105); MAGNESIUM 2.3 mg/dL (1.6-2.3); PHOSPHOROUS 4.3 mg/dL (2.5-4.5)
--- NOTE | 2017-05-27 07:04 | CP.CCUPN ---
<Chip Srinivasan - Last Filed: 05/27/17 15:20> CCU Subjective - Physician Review Subjective (Free Text): Patient seen and examined at bedside. Patient remains intubated, sedated and still hypoxic. Per nursing staff, no acute events overnight and remains easily arousable. Suction from ET tube has whitish secretions. ROS not obtained due to current status. Case discussed with house-staff; medical records and chart reviewed and labs discussed. 05/27/17 14:13 CCU Objective - Vital Signs / Intake & Output Vital Signs (Last 4 hours): Vital Signs Temp Pulse Resp BP Pulse Ox 05/27/17 06:00 74 12 128/60 95 05/27/17 05:00 81 21 128/62 98 05/27/17 04:00 97.8 F 81 15 131/58 L 96 Intake and Output (Last 8hrs): Intake & Output 05/26/17 05/27/17 05/27/17 22:59 06:59 14:59 Intake Total 650 600 Output Total 425 400 Balance 225 200 Weight 270 lb 8.115 oz Intake: IV 100 200 Intake, IV Amount 210 160 Right Forearm 50 Right Wrist 160 160 Oral 100 Tube Feeding 240 240 Output: Urine 425 400 Urethral (Saenz) 425 400 - Physical Exam Head: Positive for: Atraumatic, Normocephalic Pupils: Positive for: PERRL Extroacular Muscles: Positive for: EOMI Mouth: Positive for: Other (intubated; Suction from ET tube has whitish secretions) Respiratory/Chest: Positive for: Wheezes Cardiovascular: Positive for: Regular Rate and Rhythm, Normal S1, S2 Abdomen: Positive for: Normal Bowel Sounds. Negative for: Tenderness Neurological: Positive for: Other (Responding to deep stimuli) Psychiatric: Positive for: Other - Medications Active Medications: Active Medications Generic Name Dose Route Start Last Admin Trade Name Freq PRN Reason Stop Dose Admin Acetylcysteine 4 ml 05/25/17 09:15 05/27/17 02:04 Acetylcysteine 20% INH 4 ml RQ6 ALISA Administration Albuterol/Ipratropium 3 ml 05/23/17 14:00 05/27/17 02:03 Duoneb 3 Mg/0.5 Mg (3 Ml) Ud INH 3 ml RQ6 ALISA Administration Aspirin 81 mg 05/25/17 10:00 05/26/17 09:02 Aspirin Chewable PO 81 mg DAILY ALISA Administration Diltiazem HCl 30 mg 05/26/17 12:00 05/27/17 06:15 Cardizem PO 30 mg Q6H ALISA Administration Dorzolamide HCl 10 ml 05/22/17 18:00 05/26/17 17:48 Trusopt OU 1 drop TID ALISA Administration Enalapril Maleate 10 mg 05/23/17 10:00 05/26/17 09:02 Vasotec PO 10 mg DAILY ALISA Administration Enoxaparin Sodium 120 mg 05/23/17 22:00 05/26/17 22:55 Lovenox SC 120 mg Q12 ALISA Administration Propofol 1,000 mg in 100 mls @ 3.742 mls/hr 05/22/17 18:47 05/27/17 05:20 Diprivan IV 26.72 mcg/kg/min .Q24H PRN 19.998 mls/hr Agitation Administration Protocol 5 MCG/KG/MIN Piperacillin Sod/Tazobactam 100 mls @ 200 mls/hr 05/26/17 10:30 05/26/17 17: 47 Sod 3.375 gm/ Sodium Chloride IVPB 200 mls/hr Q8H ALISA Administration Azithromycin 500 mg/ Sodium 250 mls @ 250 mls/hr 05/26/17 11:00 05/26/17 11: 33 Chloride IVPB 250 mls/hr DAILY@1100 ALISA Administration Methylprednisolone 40 mg 05/25/17 10:00 05/26/17 22:50 Solu-Medrol IV 40 mg Q12 ALISA Administration Montelukast Sodium 10 mg 05/23/17 10:00 05/26/17 09:02 Singulair PO 10 mg DAILY ALISA Administration Multivitamins 1 tab 05/22/17 13:45 05/26/17 09:02 Hexavitamin PO 1 tab DAILY ALISA Administration Pantoprazole Sodium 40 mg 05/23/17 10:00 05/26/17 09:02 Protonix Susp NG 40 mg DAILY ALISA Administration Rosuvastatin Calcium 10 mg 05/22/17 22:00 05/26/17 22:50 Crestor PO 10 mg HS ALISA Administration Torsemide 20 mg 05/23/17 10:00 05/26/17 09:02 Demadex PO 20 mg DAILY ALISA Administration - Patient Studies Lab Studies: Microbiology Studies 05/22/17 16:25 Blood Culture - Preliminary Blood-Venous NO GROWTH AFTER 4 DAYS 05/22/17 16:55 Blood Culture - Preliminary Blood-Venous NO GROWTH AFTER 4 DAYS 05/26/17 10:48 Gram Stain - Final Trachasp Lab Studies 05/27/17 05/27/17 05/26/17 Range/Units 06:40 04:45 09:14 WBC 15.4 H (4.8-10.8) K/uL RBC 4.95 (3.80-5.20) Mil/uL Hgb 13.0 (11.0-16.0) g/dL Hct 41.5 (34.0-47.0) % MCV 83.8 (81.0-99.0) fL MCH 26.3 L (27.0-31.0) pg MCHC 31.4 L (33.0-37.0) g/dL RDW 16.7 H (11.5-14.5) % Plt Count 247 (130-400) K/uL MPV 8.0 (7.2-11.7) fL Neut % (Auto) 91.4 H (50.0-75.0) % Lymph % (Auto) 3.0 L (20.0-40.0) % [place] % (Auto) 5.5 (0.0-10.0) % Eos % (Auto) 0.0 (0.0-4.0) % Baso % (Auto) 0.1 (0.0-2.0) % Neut # 14.1 H (1.8-7.0) K/uL Lymph # 0.5 L (1.0-4.3) K/uL [place] # 0.9 H (0.0-0.8) K/uL Eos # 0.0 (0.0-0.7) K/uL Baso # 0.0 (0.0-0.2) K/uL Neutrophils % (Manual) (50-75) % Band Neutrophils % (0-2) % Lymphocytes % (Manual) (20-40) % Monocytes % (Manual) (0-10) % Platelet Estimate (NORMAL) RBC Morphology Puncture Site Rr pCO2 48 H (35-45) mm/Hg pO2 67 L (80-100) mm/Hg HCO3 35.3 H (21-28) mmol/L ABG pH 7.51 H (7.35-7.45) ABG Total CO2 39.8 H (22-28) mmol/L ABG O2 Saturation 96.6 (95-98) % ABG Base Excess 13.4 H (-2.0-3.0) mmol/L ABG Hemoglobin 12.6 (11.7-17.4) g/dL ABG Carboxyhemoglobin 1.9 H (0.5-1.5) % POC ABG HHb (Measured) 3.3 (0.0-5.0) % ABG Methemoglobin 0.7 (0.0-3.0) % Sj Test Pos A-a O2 Difference 301.0 mm/Hg Respiratory Index 4.5 Hgb O2 Saturation 94.1 L (95.0-98.0) % Vent Mode Prvc Mechanical Rate 12 FiO2 60.0 % Tidal Volume 500 PEEP 5 Ur L.pneumophila Ag Negative (NEGATIVE) Mycoplasma pneumon IgM Negative (NEGATIVE) 05/26/17 Range/Units 06:14 WBC (4.8-10.8) K/uL RBC (3.80-5.20) Mil/uL Hgb (11.0-16.0) g/dL Hct (34.0-47.0) % MCV (81.0-99.0) fL MCH (27.0-31.0) pg MCHC (33.0-37.0) g/dL RDW (11.5-14.5) % Plt Count (130-400) K/uL MPV (7.2-11.7) fL Neut % (Auto) (50.0-75.0) % Lymph % (Auto) (20.0-40.0) % [place] % (Auto) (0.0-10.0) % Eos % (Auto) (0.0-4.0) % Baso % (Auto) (0.0-2.0) % Neut # (1.8-7.0) K/uL Lymph # (1.0-4.3) K/uL [place] # (0.0-0.8) K/uL Eos # (0.0-0.7) K/uL Baso # (0.0-0.2) K/uL Neutrophils % (Manual) 91 H (50-75) % Band Neutrophils % 1 (0-2) % Lymphocytes % (Manual) 4 L (20-40) % Monocytes % (Manual) 4 (0-10) % Platelet Estimate Normal (NORMAL) RBC Morphology Normal Puncture Site pCO2 (35-45) mm/Hg pO2 (80-100) mm/Hg HCO3 (21-28) mmol/L ABG pH (7.35-7.45) ABG Total CO2 (22-28) mmol/L ABG O2 Saturation (95-98) % ABG Base Excess (-2.0-3.0) mmol/L ABG Hemoglobin (11.7-17.4) g/dL ABG Carboxyhemoglobin (0.5-1.5) % POC ABG HHb (Measured) (0.0-5.0) % ABG Methemoglobin (0.0-3.0) % Sj Test A-a O2 Difference mm/Hg Respiratory Index Hgb O2 Saturation (95.0-98.0) % Vent Mode Mechanical Rate FiO2 % Tidal Volume PEEP Ur L.pneumophila Ag (NEGATIVE) Mycoplasma pneumon IgM (NEGATIVE) Laboratory Results - last 24 hr 05/26/17 05/26/17 05/27/17 06:14 09:14 04:45 WBC RBC Hgb Hct MCV MCH MCHC RDW Plt Count MPV Neut % (Auto) Lymph % (Auto) [place] % (Auto) Eos % (Auto) Baso % (Auto) Neut # Lymph # [place] # Eos # Baso # Neutrophils % (Manual) 91 H Band Neutrophils % 1 Lymphocytes % (Manual) 4 L Monocytes % (Manual) 4 Platelet Estimate Normal RBC Morphology Normal Puncture Site Rr pCO2 48 H pO2 67 L HCO3 35.3 H ABG pH 7.51 H ABG Total CO2 39.8 H ABG O2 Saturation 96.6 ABG Base Excess 13.4 H ABG Hemoglobin 12.6 ABG Carboxyhemoglobin 1.9 H POC ABG HHb (Measured) 3.3 ABG Methemoglobin 0.7 Sj Test Pos A-a O2 Difference 301.0 Respiratory Index 4.5 Hgb O2 Saturation 94.1 L Vent Mode Prvc Mechanical Rate 12 FiO2 60.0 Tidal Volume 500 PEEP 5 Ur L.pneumophila Ag Negative Mycoplasma pneumon IgM Negative 05/27/17 06:40 WBC 15.4 H RBC 4.95 Hgb 13.0 Hct 41.5 MCV 83.8 MCH 26.3 L MCHC 31.4 L RDW 16.7 H Plt Count 247 MPV 8.0 Neut % (Auto) 91.4 H Lymph % (Auto) 3.0 L [place] % (Auto) 5.5 Eos % (Auto) 0.0 Baso % (Auto) 0.1 Neut # 14.1 H Lymph # 0.5 L [place] # 0.9 H Eos # 0.0 Baso # 0.0 Neutrophils % (Manual) Band Neutrophils % Lymphocytes % (Manual) Monocytes % (Manual) Platelet Estimate RBC Morphology Puncture Site pCO2 pO2 HCO3 ABG pH ABG Total CO2 ABG O2 Saturation ABG Base Excess ABG Hemoglobin ABG Carboxyhemoglobin POC ABG HHb (Measured) ABG Methemoglobin Sj Test A-a O2 Difference Respiratory Index Hgb O2 Saturation Vent Mode Mechanical Rate FiO2 Tidal Volume PEEP Ur L.pneumophila Ag Mycoplasma pneumon IgM Review of Systems - Review of Systems Systems not reviewed;Unavailable: Intubated Critical Care Progress Note - Vent Settings TIDAL VOLUME:: 500 RESP RATE:: 12 FIO2:: 60 PEEP:: 7 Assessment/Plan (1) Respiratory acidosis Current Visit: Yes Status: Acute (2) COPD exacerbation Current Visit: Yes Status: Acute (3) Elevated troponin Current Visit: Yes Status: Acute (4) Atrial fibrillation, new onset Current Visit: Yes Status: Acute (5) Cardiomegaly Current Visit: Yes Status: Acute (6) Elevated WBCs Current Visit: Yes Status: Acute (7) Abnormal RBC indices Current Visit: Yes Status: Acute (8) History of hypertension Current Visit: Yes Status: Acute (9) History of hyperlipidemia Current Visit: Yes Status: Acute (10) Change in mental state Current Visit: Yes Status: Acute (11) History of dementia Current Visit: Yes Status: Acute (12) History of gastroesophageal reflux (GERD) Current Visit: Yes Status: Acute (13) History of glaucoma Current Visit: Yes Status: Acute (14) Prophylactic measure Current Visit: Yes Status: Acute - Assessment and Plan (Free Text) Assessment: 76 year old female with PMHx of COPD, Asthma, HTN, Cardiomegaly, Dementia presenting with Respiratory acidosis likely 2/2 COPD exacerbation Pulmonary: Respiratory acidosis likely 2/2 COPD exacerbation; CT chest suspicious of left lower lobe pneumonia - Intubated (since 05/22) and sedated on Diprivan drip 1,000mg daily - [employer] on board: Dr. Camejo - CT chest suspicious of left lower lobe pneumonia - pO2:FiO2 ratio is 111 - severe hypoxemia -Will repeast Chest CT tomorrow - - Singular 10 mg PO daily - Duoneb 3 ml INH RQ6 - Mucomyst 4 ml INH RQ6 Cardio: Elevated troponin, A-fib, Cardiomegaly with Diastolic Heart Failure, HTN , HLD - Troponins elevated most likely 2/2 to CHF/COPD and hypoxemia - ProBNP elevated most likely 2/2 to COPD/CHF - [id number] score is 4. Continue therapeutic Lovenox 120 mg SC Q12 - long term care administrator anticoagulation difficult due to dementia and fall risk - 05/22 EKG: inferior, anterolateral ischemia. A-fib - 05/22 CXR: marked cardiomegaly. No focal consolidation, no pericardial effusion , no pneumothorax - 05/22 Echo: EF 60-65% with normal LVSF, basal anteroseptal wall hypokinesis. Moderate pulmonary hypertension. Right ventricle moderately dilated. - No further cardiac workup or intervention at this time per Cardiology, Dr. Hart - - Diltiazem 30 mg PO Q6 - Lovenox 120mg sc q12 - Enalapril 10 mg PO daily - Crestor 10 mg PO HS - Torsemide 20 mg PO daily - ASA 81 mg PO daily ID: Elevated WBCs; CT chest suspicious of left lower lobe pneumonia; sputum cx ( +) for gram positive cocci - sputum culture (+) for gram positive cocci - Blood and urine culture from 05/22 negative - Afebrile, possible stress response or transient increased due to steroid use - CT chest w/ evidence of left lower lobe pneumonia - Legionella antigen negative, Mycoplasma pneumoniae IgM negative - - Zosyn 3.375 mg IV Q8hr started 05/26/17 - Azithromycin 500 mg IV daily started 05/26/17 - Vanco 1 gm IV q12 Integumentry: fungal rash underneath breasts b/l - nystatin topical powder Neuro: Dementia, altered mental status - continue home meds: Donepezil 5 mg PO HS - 05/[address] w/o contrast: no acute findings. GI: GERD , constipation - Protonix 40 mg NG daily - Start Colace 100 mg NG TID Heme: abnormal RBC indices - Hgb stable - patient has not had a bowel movement in a few days, will discontinue Ferrous sulfate Ophtho: Glaucoma - Dorzolamide 10 ml OU TID Prophylaxis: DVT: Lovenox 120mg SC Q12 GI: Protonix 40 mg NG daily Multivitamins <Toribio Camejo - Last Filed: 05/27/17 15:51> CCU Objective - Vital Signs / Intake & Output Intake and Output (Last 8hrs): Intake & Output 05/27/17 05/27/17 05/27/17 06:59 14:59 22:59 Intake Total 600 1250 Output Total 400 350 Balance 200 900 Weight 270 lb 8.115 oz Intake: IV 200 100 Intake, IV Amount 160 430 Right Forearm 350 Right Wrist 160 80 Oral 600 Tube Feeding 240 120 Output: Urine 400 350 Urethral (Saenz) 400 350 - Medications Active Medications: Active Medications Generic Name Dose Route Start Last Admin Trade Name Freq PRN Reason Stop Dose Admin Acetylcysteine 4 ml 05/25/17 09:15 05/27/17 14:08 Acetylcysteine 20% INH 4 ml RQ6 ALISA Administration Albuterol/Ipratropium 3 ml 05/23/17 14:00 05/27/17 14:08 Duoneb 3 Mg/0.5 Mg (3 Ml) Ud INH 3 ml RQ6 ALISA Administration Aspirin 81 mg 05/25/17 10:00 05/27/17 09:25 Aspirin Chewable PO 81 mg DAILY ALISA Administration Diltiazem HCl 30 mg 05/26/17 12:00 05/27/17 12:39 Cardizem PO 30 mg Q6H ALISA Administration Dorzolamide HCl 10 ml 05/22/17 18:00 05/27/17 13:46 Trusopt OU 1 drop TID ALISA Administration Enalapril Maleate 10 mg 05/23/17 10:00 05/27/17 09:25 Vasotec PO 10 mg DAILY ALISA Administration Enoxaparin Sodium 120 mg 05/23/17 22:00 05/27/17 09:25 Lovenox SC 120 mg Q12 ALISA Administration Propofol 1,000 mg in 100 mls @ 3.742 mls/hr 05/22/17 18:47 05/27/17 10:59 Diprivan IV 13.36 mcg/kg/min .Q24H PRN 10 mls/hr Agitation Administration Protocol 5 MCG/KG/MIN Piperacillin Sod/Tazobactam 100 mls @ 200 mls/hr 05/26/17 10:30 05/27/17 10: 28 Sod 3.375 gm/ Sodium Chloride IVPB 200 mls/hr Q8H ALISA Administration Azithromycin 500 mg/ Sodium 250 mls @ 250 mls/hr 05/26/17 11:00 05/27/17 10: 29 Chloride IVPB 250 mls/hr DAILY@1100 ALISA Administration Vancomycin HCl 1 gm/ Sodium 250 mls @ 166.7 mls/hr 05/27/17 09:00 05/27/17 08 :49 Chloride IVPB 166.7 mls/hr Q12H ALISA Administration Methylprednisolone 40 mg 05/25/17 10:00 05/27/17 09:27 Solu-Medrol IV 40 mg Q12 ALISA Administration Montelukast Sodium 10 mg 05/23/17 10:00 05/27/17 09:25 Singulair PO 10 mg DAILY ALISA Administration Multivitamins 1 tab 05/22/17 13:45 05/27/17 09:25 Hexavitamin PO 1 tab DAILY ALISA Administration Nystatin 1 applic 05/27/17 10:30 05/27/17 15:44 Nystop Topical Powder TOP Not Given TID [facility] Pantoprazole Sodium 40 mg 05/23/17 10:00 05/27/17 09:28 Protonix Susp NG 40 mg DAILY ALISA Administration Rosuvastatin Calcium 10 mg 05/22/17 22:00 05/26/17 22:50 Crestor PO 10 mg HS ALISA Administration Torsemide 20 mg 05/23/17 10:00 05/27/17 09:25 Demadex PO 20 mg DAILY ALISA Administration - Patient Studies Lab Studies: Microbiology Studies 05/22/17 16:25 Blood Culture - Preliminary Blood-Venous NO GROWTH AFTER 4 DAYS 05/22/17 16:55 Blood Culture - Preliminary Blood-Venous NO GROWTH AFTER 4 DAYS 05/26/17 10:48 Gram Stain - Final Trachasp Lab Studies 05/27/17 05/27/17 05/27/17 Range/Units 06:40 06:36 04:45 WBC 15.4 H (4.8-10.8) K/uL RBC 4.95 (3.80-5.20) Mil/uL Hgb 13.0 (11.0-16.0) g/dL Hct 41.5 (34.0-47.0) % MCV 83.8 (81.0-99.0) fL MCH 26.3 L (27.0-31.0) pg MCHC 31.4 L (33.0-37.0) g/dL RDW 16.7 H (11.5-14.5) % Plt Count 247 (130-400) K/uL MPV 8.0 (7.2-11.7) fL Neut % (Auto) 91.4 H (50.0-75.0) % Lymph % (Auto) 3.0 L (20.0-40.0) % [place] % (Auto) 5.5 (0.0-10.0) % Eos % (Auto) 0.0 (0.0-4.0) % Baso % (Auto) 0.1 (0.0-2.0) % Neut # 14.1 H (1.8-7.0) K/uL Lymph # 0.5 L (1.0-4.3) K/uL [place] # 0.9 H (0.0-0.8) K/uL Eos # 0.0 (0.0-0.7) K/uL Baso # 0.0 (0.0-0.2) K/uL Neutrophils % (Manual) 94 H (50-75) % Lymphocytes % (Manual) 4 L (20-40) % Monocytes % (Manual) 2 (0-10) % Platelet Estimate Normal (NORMAL) RBC Morphology Normal Puncture Site Rr pCO2 48 H (35-45) mm/Hg pO2 67 L (80-100) mm/Hg HCO3 35.3 H (21-28) mmol/L ABG pH 7.51 H (7.35-7.45) ABG Total CO2 39.8 H (22-28) mmol/L ABG O2 Saturation 96.6 (95-98) % ABG Base Excess 13.4 H (-2.0-3.0) mmol/L ABG Hemoglobin 12.6 (11.7-17.4) g/dL ABG Carboxyhemoglobin 1.9 H (0.5-1.5) % POC ABG HHb (Measured) 3.3 (0.0-5.0) % ABG Methemoglobin 0.7 (0.0-3.0) % Sj Test Pos A-a O2 Difference 301.0 mm/Hg Respiratory Index 4.5 Hgb O2 Saturation 94.1 L (95.0-98.0) % Vent Mode Prvc Mechanical Rate 12 FiO2 60.0 % Tidal Volume 500 PEEP 5 Sodium 141 (132-148) mmol/L Potassium 3.3 L (3.6-5.2) mmol/L Chloride 96 L (98-107) mmol/L Carbon Dioxide 36 H (22-30) mmol/L Anion Gap 12 (10-20) BUN 41 H (7-17) mg/dL Creatinine 0.6 L (0.7-1.2) MG/DL Est GFR ( Amer) > 60 Est GFR (Non-Af Amer) > 60 Random Glucose 122 H (65-105) mg/dL Calcium 8.6 (8.6-10.4) mg/dl Phosphorus 4.3 (2.5-4.5) mg/dL Magnesium 2.3 (1.6-2.3) mg/dL Total Bilirubin 0.7 (0.2-1.3) mg/dL AST 25 (14-36) U/L ALT 28 (9-52) U/L Alkaline Phosphatase 58 (38-126) U/L Total Protein 5.9 L (6.3-8.3) g/dL Albumin 3.1 L (3.5-5.0) g/dL Globulin 2.7 (2.2-3.9) gm/dL Albumin/Globulin Ratio 1.1 (1.0-2.1) Ur L.pneumophila Ag (NEGATIVE) Mycoplasma pneumon IgM (NEGATIVE) 05/26/17 Range/Units 09:14 WBC (4.8-10.8) K/uL RBC (3.80-5.20) Mil/uL Hgb (11.0-16.0) g/dL Hct (34.0-47.0) % MCV (81.0-99.0) fL MCH (27.0-31.0) pg MCHC (33.0-37.0) g/dL RDW (11.5-14.5) % Plt Count (130-400) K/uL MPV (7.2-11.7) fL Neut % (Auto) (50.0-75.0) % Lymph % (Auto) (20.0-40.0) % [place] % (Auto) (0.0-10.0) % Eos % (Auto) (0.0-4.0) % Baso % (Auto) (0.0-2.0) % Neut # (1.8-7.0) K/uL Lymph # (1.0-4.3) K/uL [place] # (0.0-0.8) K/uL Eos # (0.0-0.7) K/uL Baso # (0.0-0.2) K/uL Neutrophils % (Manual) (50-75) % Lymphocytes % (Manual) (20-40) % Monocytes % (Manual) (0-10) % Platelet Estimate (NORMAL) RBC Morphology Puncture Site pCO2 (35-45) mm/Hg pO2 (80-100) mm/Hg HCO3 (21-28) mmol/L ABG pH (7.35-7.45) ABG Total CO2 (22-28) mmol/L ABG O2 Saturation (95-98) % ABG Base Excess (-2.0-3.0) mmol/L ABG Hemoglobin (11.7-17.4) g/dL ABG Carboxyhemoglobin (0.5-1.5) % POC ABG HHb (Measured) (0.0-5.0) % ABG Methemoglobin (0.0-3.0) % Sj Test A-a O2 Difference mm/Hg Respiratory Index Hgb O2 Saturation (95.0-98.0) % Vent Mode Mechanical Rate FiO2 % Tidal Volume PEEP Sodium (132-148) mmol/L Potassium (3.6-5.2) mmol/L Chloride (98-107) mmol/L Carbon Dioxide (22-30) mmol/L Anion Gap (10-20) BUN (7-17) mg/dL Creatinine (0.7-1.2) MG/DL Est GFR ( Amer) Est GFR (Non-Af Amer) Random Glucose (65-105) mg/dL Calcium (8.6-10.4) mg/dl Phosphorus (2.5-4.5) mg/dL Magnesium (1.6-2.3) mg/dL Total Bilirubin (0.2-1.3) mg/dL AST (14-36) U/L ALT (9-52) U/L Alkaline Phosphatase (38-126) U/L Total Protein (6.3-8.3) g/dL Albumin (3.5-5.0) g/dL Globulin (2.2-3.9) gm/dL Albumin/Globulin Ratio (1.0-2.1) Ur L.pneumophila Ag Negative (NEGATIVE) Mycoplasma pneumon IgM Negative (NEGATIVE) Laboratory Results - last 24 hr 05/26/17 05/27/17 05/27/17 09:14 04:45 06:36 WBC RBC Hgb Hct MCV MCH MCHC RDW Plt Count MPV Neut % (Auto) Lymph % (Auto) [place] % (Auto) Eos % (Auto) Baso % (Auto) Neut # Lymph # [place] # Eos # Baso # Neutrophils % (Manual) Lymphocytes % (Manual) Monocytes % (Manual) Platelet Estimate RBC Morphology Puncture Site Rr pCO2 48 H pO2 67 L HCO3 35.3 H ABG pH 7.51 H ABG Total CO2 39.8 H ABG O2 Saturation 96.6 ABG Base Excess 13.4 H ABG Hemoglobin 12.6 ABG Carboxyhemoglobin 1.9 H POC ABG HHb (Measured) 3.3 ABG Methemoglobin 0.7 Sj Test Pos A-a O2 Difference 301.0 Respiratory Index 4.5 Hgb O2 Saturation 94.1 L Vent Mode Prvc Mechanical Rate 12 FiO2 60.0 Tidal Volume 500 PEEP 5 Sodium 141 Potassium 3.3 L Chloride 96 L Carbon Dioxide 36 H Anion Gap 12 BUN 41 H Creatinine 0.6 L Est GFR ( Amer) > 60 Est GFR (Non-Af Amer) > 60 Random Glucose 122 H Calcium 8.6 Phosphorus 4.3 Magnesium 2.3 Total Bilirubin 0.7 AST 25 ALT 28 Alkaline Phosphatase 58 Total Protein 5.9 L Albumin 3.1 L Globulin 2.7 Albumin/Globulin Ratio 1.1 Ur L.pneumophila Ag Negative Mycoplasma pneumon IgM Negative 05/27/17 06:40 WBC 15.4 H RBC 4.95 Hgb 13.0 Hct 41.5 MCV 83.8 MCH 26.3 L MCHC 31.4 L RDW 16.7 H Plt Count 247 MPV 8.0 Neut % (Auto) 91.4 H Lymph % (Auto) 3.0 L [place] % (Auto) 5.5 Eos % (Auto) 0.0 Baso % (Auto) 0.1 Neut # 14.1 H Lymph # 0.5 L [place] # 0.9 H Eos # 0.0 Baso # 0.0 Neutrophils % (Manual) 94 H Lymphocytes % (Manual) 4 L Monocytes % (Manual) 2 Platelet Estimate Normal RBC Morphology Normal Puncture Site pCO2 pO2 HCO3 ABG pH ABG Total CO2 ABG O2 Saturation ABG Base Excess ABG Hemoglobin ABG Carboxyhemoglobin POC ABG HHb (Measured) ABG Methemoglobin Sj Test A-a O2 Difference Respiratory Index Hgb O2 Saturation Vent Mode Mechanical Rate FiO2 Tidal Volume PEEP Sodium Potassium Chloride Carbon Dioxide Anion Gap BUN Creatinine Est GFR ( Amer) Est GFR (Non-Af Amer) Random Glucose Calcium Phosphorus Magnesium Total Bilirubin AST ALT Alkaline Phosphatase Total Protein Albumin Globulin Albumin/Globulin Ratio Ur L.pneumophila Ag Mycoplasma pneumon IgM Assessment/Plan (1) Acute respiratory failure with hypoxia and hypercapnia Current Visit: Yes Status: Acute (2) Atrial fibrillation, new onset Current Visit: Yes Status: Acute (3) COPD exacerbation Current Visit: Yes Status: Acute Attending/Attestation - Attestation I have personally seen and examined this patient.: Yes I have fully participated in the care of the patient.: Yes I have reviewed all pertinent clinical information: Yes Notes (Text): 05/27/17 15:50 Patient seen and examined in the intensive care unit. Case discussed with house staff in the morning rounds Remain intubated on ventilatory support requiring high FiO2 with saturation in the low 90s Chest x-ray consistent with bibasilar infiltrate and effusion Consider CAT scan of the chest Continue antibiotics, Follow-up culture and sensitivity Continue steroids and nebulizer treatment Feeding as tolerated
[2017-05-27 08:34] LABS: NEUTROPHIL 94 % (50-75); TOTAL CELLS COUNTED 100
[2017-05-27] MEDS: Enoxaparin 120 mg Syringe SC SCH ×2 (09:25→22:35)
[2017-05-27] MEDS: Multiple Vitamins Tab PO SCH (09:25)
[2017-05-27] MEDS: Dorzolamide 2% Opht Sol 10ml OU SCH ×3 (09:26→17:06)
[2017-05-27] MEDS: Pantoprazole 40 mg Susp UD NG SCH (09:28)
[2017-05-27] MEDS ORDERED: Potassium Chloride 20 mEq ER Tab PO ONE (10:01)
[2017-05-27] MEDS: Azithromycin 500 MG in Sodium Chloride 0.9% 250 ML IVPB SCH (10:29)
--- NOTE | 2017-05-27 11:00 | RAD ---
Chest x-ray single frontal view History: COPD. Comparison: Intubation. Comparison: 05/26/2017 Findings: Lines and tubes stable position. Moderate bilateral pleural effusions with dense consolidative changes in the mid to lower lung zones. Moderate venous congestion. Biapical pleural thickening with upper lobe granulomatous changes. Cardiomegaly. Degenerative changes in the spine and shoulders. Impression: Lines and tubes stable position. Moderate bilateral pleural effusions with dense consolidative changes in the mid to lower lung zones. Moderate venous congestion. Biapical pleural thickening with upper lobe granulomatous changes. Cardiomegaly.
--- NOTE | 2017-05-27 13:13 | CP.PCM.PN ---
Subjective - Date & Time of Evaluation Date of Evaluation: 05/27/17 Time of Evaluation: 13:30 - Subjective Subjective: Patient seen and examined at bedside in ICU. Patient is intubated but awake and alert. Objective - Vital Signs/Intake and Output Vital Signs (last 24 hours): Temp Pulse Resp BP Pulse Ox 99 F 83 16 153/72 H 85 L 05/27/17 08:00 05/27/17 10:00 05/27/17 10:00 05/27/17 10:00 05/27/17 10:00 Intake and Output: 05/27/17 05/27/17 06:59 18:59 Intake Total 850 1250 Output Total 600 350 Balance 250 900 - Medications Medications: Current Medications Acetylcysteine (Acetylcysteine 20%) 4 ml INH RQ6 [facility] Last Admin: 05/27/17 07:52 Dose: 4 ml Albuterol/Ipratropium (Duoneb 3 Mg/0.5 Mg (3 Ml) Ud) 3 ml INH RQ6 [facility] Last Admin: 05/27/17 07:52 Dose: 3 ml Aspirin (Aspirin Chewable) 81 mg PO DAILY [facility] Last Admin: 05/27/17 09:25 Dose: 81 mg Diltiazem HCl (Cardizem) 30 mg PO Q6H [facility] Last Admin: 05/27/17 12:39 Dose: 30 mg Dorzolamide HCl (Trusopt) 10 ml OU TID [facility] Last Admin: 05/27/17 09:26 Dose: 1 drop Enalapril Maleate (Vasotec) 10 mg PO DAILY [facility] Last Admin: 05/27/17 09:25 Dose: 10 mg Enoxaparin Sodium (Lovenox) 120 mg SC Q12 [facility] Last Admin: 05/27/17 09:25 Dose: 120 mg Propofol (Diprivan) 1,000 mg in 100 mls @ 3.742 mls/hr IV .Q24H PRN; Protocol; 5 MCG/KG/MIN PRN Reason: Agitation Last Admin: 05/27/17 10:59 Dose: 13.36 mcg/kg/min, 10 mls/hr Piperacillin Sod/Tazobactam (Sod 3.375 gm/ Sodium Chloride) 100 mls @ 200 mls/ hr IVPB Q8H [facility] Last Admin: 05/27/17 10:28 Dose: 200 mls/hr Azithromycin 500 mg/ Sodium (Chloride) 250 mls @ 250 mls/hr IVPB DAILY@1100 [facility] Last Admin: 05/27/17 10:29 Dose: 250 mls/hr Vancomycin HCl 1 gm/ Sodium (Chloride) 250 mls @ 166.7 mls/hr IVPB Q12H [facility] Last Admin: 05/27/17 08:49 Dose: 166.7 mls/hr Methylprednisolone (Solu-Medrol) 40 mg IV Q12 [facility] Last Admin: 05/27/17 09:27 Dose: 40 mg Montelukast Sodium (Singulair) 10 mg PO DAILY [facility] Last Admin: 05/27/17 09:25 Dose: 10 mg Multivitamins (Hexavitamin) 1 tab PO DAILY [facility] Last Admin: 05/27/17 09:25 Dose: 1 tab Nystatin (Nystop Topical Powder) 1 applic TOP TID [facility] Last Admin: 05/27/17 12:38 Dose: 1 pow Pantoprazole Sodium (Protonix Susp) 40 mg NG DAILY [facility] Last Admin: 05/27/17 09:28 Dose: 40 mg Rosuvastatin Calcium (Crestor) 10 mg PO HS [facility] Last Admin: 05/26/17 22:50 Dose: 10 mg Torsemide (Demadex) 20 mg PO DAILY [facility] Last Admin: 05/27/17 09:25 Dose: 20 mg - Labs Labs: 05/27/17 06:40 05/27/17 06:36 - Head Exam Head Exam: ATRAUMATIC, NORMOCEPHALIC - Eye Exam Eye Exam: Normal appearance - ENT Exam ENT Exam: Mucous Membranes Moist - Neck Exam Neck Exam: Normal Inspection - Respiratory Exam Additional comments: Bilateral transmitted breath sounds. Patient is on ventilator support. - Cardiovascular Exam Cardiovascular Exam: REGULAR RHYTHM, +S1, +S2 - GI/Abdominal Exam GI & Abdominal Exam: Soft. absent: Tenderness - Extremities Exam Extremities Exam: absent: Pedal Edema Assessment and Plan (1) Pneumonia Status: Acute (2) Acute respiratory failure with hypoxia and hypercapnia Status: Acute (3) COPD exacerbation Status: Acute (4) Atrial fibrillation, new onset Status: Acute (5) CHF (congestive heart failure) Status: Acute (6) Elevated WBCs Status: Acute (7) History of hyperlipidemia Status: Acute (8) History of hypertension Status: Acute - Assessment and Plan (Free Text) Plan: We will continue antibiotics for pneumonia Weaning trial as per ICU team Continue steroids and nebulizing treatment. Discussed with ICU team. Agree with the management of the ICU team.
--- NOTE | 2017-05-27 23:35 | CP.PCM.PN ---
Subjective - Date & Time of Evaluation Date of Evaluation: 05/27/17 Time of Evaluation: 15:30 - Subjective Subjective: Patient seen and evaluated Unchanged clinically Physical examination - Head Exam Head Exam: ATRAUMATIC, NORMAL INSPECTION - Eye Exam Eye Exam: PERRL - ENT Exam ENT Exam: Mucous Membranes Moist - Neck Exam Neck Exam: Normal Inspection - Respiratory Exam Respiratory Exam: Decreased Breath Sounds - Cardiovascular Exam Cardiovascular Exam: Irregular Rhythm, +S1, +S2 - GI/Abdominal Exam GI & Abdominal Exam: Normal Bowel Sounds - Skin Skin Exam: Warm Objective - Vital Signs/Intake and Output Vital Signs (last 24 hours): Temp Pulse Resp BP Pulse Ox 97.6 F 79 14 112/60 95 05/27/17 16:00 05/27/17 22:00 05/27/17 22:00 05/27/17 22:00 05/27/17 22:00 Intake and Output: 05/27/17 05/28/17 18:59 06:59 Intake Total 2190 100 Output Total 1100 Balance 1090 100 - Medications Medications: Current Medications Acetylcysteine (Acetylcysteine 20%) 4 ml INH RQ6 [facility] Last Admin: 05/27/17 20:10 Dose: 4 ml Albuterol/Ipratropium (Duoneb 3 Mg/0.5 Mg (3 Ml) Ud) 3 ml INH RQ6 [facility] Last Admin: 05/27/17 20:10 Dose: 3 ml Aspirin (Aspirin Chewable) 81 mg PO DAILY [facility] Last Admin: 05/27/17 09:25 Dose: 81 mg Diltiazem HCl (Cardizem) 30 mg PO Q6H [facility] Last Admin: 05/27/17 23:23 Dose: 30 mg Dorzolamide HCl (Trusopt) 10 ml OU TID [facility] Last Admin: 05/27/17 17:06 Dose: 1 drop Enalapril Maleate (Vasotec) 10 mg PO DAILY [facility] Last Admin: 05/27/17 09:25 Dose: 10 mg Enoxaparin Sodium (Lovenox) 120 mg SC Q12 [facility] Last Admin: 05/27/17 22:35 Dose: 120 mg Propofol (Diprivan) 1,000 mg in 100 mls @ 3.742 mls/hr IV .Q24H PRN; Protocol; 5 MCG/KG/MIN PRN Reason: Agitation Last Admin: 05/27/17 19:08 Dose: 20.04 mcg/kg/min, 14.998 mls/hr Piperacillin Sod/Tazobactam (Sod 3.375 gm/ Sodium Chloride) 100 mls @ 200 mls/ hr IVPB Q8H [facility] Last Admin: 05/27/17 17:33 Dose: 200 mls/hr Azithromycin 500 mg/ Sodium (Chloride) 250 mls @ 250 mls/hr IVPB DAILY@1100 [facility] Last Admin: 05/27/17 10:29 Dose: 250 mls/hr Vancomycin HCl 1 gm/ Sodium (Chloride) 250 mls @ 166.7 mls/hr IVPB Q12H [facility] Last Admin: 05/27/17 20:00 Dose: 166.7 mls/hr Methylprednisolone (Solu-Medrol) 40 mg IV Q12 [facility] Last Admin: 05/27/17 22:40 Dose: 40 mg Montelukast Sodium (Singulair) 10 mg PO DAILY [facility] Last Admin: 05/27/17 09:25 Dose: 10 mg Multivitamins (Hexavitamin) 1 tab PO DAILY [facility] Last Admin: 05/27/17 09:25 Dose: 1 tab Nystatin (Nystop Topical Powder) 1 applic TOP TID [facility] Last Admin: 05/27/17 17:06 Dose: 1 pow Pantoprazole Sodium (Protonix Susp) 40 mg NG DAILY [facility] Last Admin: 05/27/17 09:28 Dose: 40 mg Rosuvastatin Calcium (Crestor) 10 mg PO HS [facility] Last Admin: 05/27/17 22:35 Dose: 10 mg Torsemide (Demadex) 20 mg PO DAILY [facility] Last Admin: 05/27/17 09:25 Dose: 20 mg - Labs Labs: 05/27/17 06:40 05/27/17 06:36 Assessment and Plan - Assessment and Plan (Free Text) Assessment: (1) Atrial fibrillation, new onset Assessment & Plan: Rate controlled now. Continue Cardizem by mouth for rate control. (2) CHF (congestive heart failure) Assessment & Plan: IV Lasix (3) History of hyperlipidemia Assessment & Plan: Continue statin. (4) History of hypertension Assessment & Plan: Continue current medication. (5) Acute respiratory failure with hypoxia and hypercapnia On Mechanical ventilation (6) Pneumonia Assessment & Plan: ID on case on antibiotics (7) COPD exacerbation Assessment & Plan: On nebulizers
[2017-05-28] MEDS: Propofol 10 mg/ml 1,000 MG/100 ML VIAL IV PRN ×3 (00:33→16:24)
[2017-05-28] MEDS: Piperacillin/Tazobact 3.375 GM in Sodium Chloride 100 ML IVPB SCH ×3 (01:30→17:47)
[2017-05-28] MEDS: Albuterol-Ipratrop 3 mg / 0.5 (3 ml) UD INH SCH ×3 (01:40→21:13)
[2017-05-28] MEDS: Acetylcysteine 20% Inhal Soln (4ml) INH SCH ×4 (01:40→21:13)
[2017-05-28 06:01] LABS: ABG ALLEN TEST POS; ABG MECHANICAL RATE 12; ARTERIAL BLOOD GAS MODE PRVC; ARTERIAL BLOOD HGB O2 SAT 94.4 % (95.0-98.0); ATERIAL BLOOD GAS PEEP 5; CARBOXYHEMOGLOBIN 1.4 % (0.5-1.5); DRAW SITE LR; HHB 3.2 % (0.0-5.0); METHEMOGLOBIN 0.9 % (0.0-3.0)
[2017-05-28 06:07] LABS: BASO % 0.2 % (0.0-2.0); HEMATOCRIT 41.2 % (34.0-47.0); LYMPH # 0.4 K/uL (1.0-4.3); LYMPH % 3.2 % (20.0-40.0); MEAN CELL VOLUME 84.3 fL (81.0-99.0); MEAN CORPUSCULAR HEMOGLOBIN 26.3 pg (27.0-31.0); MEAN CORPUSCULAR HGB CONC 31.2 g/dL (33.0-37.0); MEAN PLATELET VOLUME 8.3 fL (7.2-11.7); MONO # 0.8 K/uL (0.0-0.8); MONO % 5.7 % (0.0-10.0); PLATELET COUNT 237 K/uL (130-400); RED CELL DISTRIBUTION WIDTH 16.6 % (11.5-14.5); WHITE BLOOD COUNT 13.8 K/uL (4.8-10.8)
[2017-05-28 06:34] LABS: CHLORIDE 102 mmol/L (98-107); POTASSIUM 3.5 mmol/L (3.6-5.2); SODIUM 143 mmol/L (132-148)
[2017-05-28 06:36] LABS: BILIRUBIN,TOTAL 0.7 mg/dL (0.2-1.3); CARBON DIOXIDE 33 mmol/L (22-30); GFR AFRICAN-AMERICAN > 60
[2017-05-28 06:37] LABS: ALKALINE PHOSPHATASE 53 U/L (38-126); ALT/SGPT 33 U/L (9-52); AST/SGOT 27 U/L (14-36); BLOOD UREA NITROGEN 44 mg/dL (7-17); CALCIUM 8.3 mg/dl (8.6-10.4); GLUCOSE,RANDOM 148 mg/dL (65-105); PHOSPHOROUS 4.3 mg/dL (2.5-4.5); TOTAL PROTEIN 6.4 g/dL (6.3-8.3)
[2017-05-28 06:38] LABS: MAGNESIUM 2.3 mg/dL (1.6-2.3)
[2017-05-28 08:31] LABS: NEUTROPHIL 91 % (50-75); TOTAL CELLS COUNTED 100
[2017-05-28] MEDS: Multiple Vitamins Tab PO SCH (09:05)
[2017-05-28] MEDS: Pantoprazole 40 mg Susp UD NG SCH (09:05)
[2017-05-28] MEDS: Enoxaparin 120 mg Syringe SC SCH ×2 (09:06→22:59)
[2017-05-28] MEDS: Dorzolamide 2% Opht Sol 10ml OU SCH ×3 (09:08→17:47)
--- NOTE | 2017-05-28 09:08 | CP.CCUPN ---
<Chip Srinivasan - Last Filed: 05/28/17 19:47> CCU Subjective - Physician Review Subjective (Free Text): Patient seen and examined at bedside. Patient remains intubated, sedated and still hypoxic. Per nursing staff, no acute events overnight and remains easily arousable. Suction from ET tube has whitish secretions. ROS not obtained due to current status. Case discussed with house-staff; medical records and chart reviewed and labs discussed. 05/28/17 09:06 CCU Objective - Vital Signs / Intake & Output Vital Signs (Last 4 hours): Vital Signs Temp Pulse Resp BP Pulse Ox 05/28/17 08:00 98.6 F 77 12 121/56 L 95 05/28/17 07:00 74 12 119/59 L 96 05/28/17 06:00 79 12 111/57 L 95 Intake and Output (Last 8hrs): Intake & Output 05/27/17 05/28/17 05/28/17 22:59 06:59 14:59 Intake Total 960 610 Output Total 555 375 Balance 405 235 Weight 270 lb 8.115 oz Intake: IV 100 100 Intake, IV Amount 470 220 Right Forearm 350 100 Right Hand 120 120 Oral 150 50 Tube Feeding 240 240 Output: Urine 555 375 Urethral (Saenz) 555 375 - Physical Exam Head: Positive for: Atraumatic, Normocephalic Pupils: Positive for: PERRL Extroacular Muscles: Positive for: EOMI Mouth: Positive for: Other (intubated; Suction from ET tube has whitish secretions) Respiratory/Chest: Positive for: Wheezes Cardiovascular: Positive for: Regular Rate and Rhythm, Normal S1, S2 Abdomen: Positive for: Normal Bowel Sounds. Negative for: Tenderness Neurological: Positive for: Other (Responding to deep stimuli) Psychiatric: Positive for: Other - Medications Active Medications: Active Medications Generic Name Dose Route Start Last Admin Trade Name Freq PRN Reason Stop Dose Admin Acetylcysteine 4 ml 05/25/17 09:15 05/28/17 07:26 Acetylcysteine 20% INH 4 ml RQ6 ALISA Administration Albuterol/Ipratropium 3 ml 05/23/17 14:00 05/28/17 07:26 Duoneb 3 Mg/0.5 Mg (3 Ml) Ud INH 3 ml RQ6 ALISA Administration Aspirin 81 mg 05/25/17 10:00 05/27/17 09:25 Aspirin Chewable PO 81 mg DAILY ALISA Administration Diltiazem HCl 30 mg 05/26/17 12:00 05/28/17 05:44 Cardizem PO 30 mg Q6H ALISA Administration Dorzolamide HCl 10 ml 05/22/17 18:00 05/27/17 17:06 Trusopt OU 1 drop TID ALISA Administration Enalapril Maleate 10 mg 05/23/17 10:00 05/27/17 09:25 Vasotec PO 10 mg DAILY ALISA Administration Enoxaparin Sodium 120 mg 05/23/17 22:00 05/27/17 22:35 Lovenox SC 120 mg Q12 ALISA Administration Propofol 1,000 mg in 100 mls @ 3.742 mls/hr 05/22/17 18:47 05/28/17 00:33 Diprivan IV 20.04 mcg/kg/min .Q24H PRN 14.998 mls/hr Agitation Administration Protocol 5 MCG/KG/MIN Piperacillin Sod/Tazobactam 100 mls @ 200 mls/hr 05/26/17 10:30 05/28/17 01: 30 Sod 3.375 gm/ Sodium Chloride IVPB 200 mls/hr Q8H ALISA Administration Azithromycin 500 mg/ Sodium 250 mls @ 250 mls/hr 05/26/17 11:00 05/27/17 10: 29 Chloride IVPB 250 mls/hr DAILY@1100 ALISA Administration Vancomycin HCl 1 gm/ Sodium 250 mls @ 166.7 mls/hr 05/27/17 09:00 05/27/17 20 :00 Chloride IVPB 166.7 mls/hr Q12H ALISA Administration Methylprednisolone 40 mg 05/25/17 10:00 05/27/17 22:40 Solu-Medrol IV 40 mg Q12 ALISA Administration Montelukast Sodium 10 mg 05/23/17 10:00 05/27/17 09:25 Singulair PO 10 mg DAILY ALISA Administration Multivitamins 1 tab 05/22/17 13:45 05/27/17 09:25 Hexavitamin PO 1 tab DAILY ALISA Administration Nystatin 1 applic 05/27/17 10:30 05/27/17 17:06 Nystop Topical Powder TOP 1 pow TID ALISA Administration Pantoprazole Sodium 40 mg 05/23/17 10:00 05/27/17 09:28 Protonix Susp NG 40 mg DAILY ALISA Administration Rosuvastatin Calcium 10 mg 05/22/17 22:00 05/27/17 22:35 Crestor PO 10 mg HS ALISA Administration Torsemide 20 mg 05/23/17 10:00 05/27/17 09:25 Demadex PO 20 mg DAILY ALISA Administration - Patient Studies Lab Studies: Microbiology Studies 05/22/17 16:25 Blood Culture - Final Blood-Venous NO GROWTH AFTER 5 DAYS Gram Stain - Final TEST NOT PERFORMED 05/22/17 16:55 Blood Culture - Final Blood-Venous NO GROWTH AFTER 5 DAYS Gram Stain - Final TEST NOT PERFORMED Lab Studies 05/28/17 05/28/17 05/28/17 Range/Units 05:59 05:59 05:05 WBC 13.8 H (4.8-10.8) K/uL RBC 4.88 (3.80-5.20) Mil/uL Hgb 12.8 (11.0-16.0) g/dL Hct 41.2 (34.0-47.0) % MCV 84.3 (81.0-99.0) fL MCH 26.3 L (27.0-31.0) pg MCHC 31.2 L (33.0-37.0) g/dL RDW 16.6 H (11.5-14.5) % Plt Count 237 (130-400) K/uL MPV 8.3 (7.2-11.7) fL Neut % (Auto) 90.9 H (50.0-75.0) % Lymph % (Auto) 3.2 L (20.0-40.0) % [place] % (Auto) 5.7 (0.0-10.0) % Eos % (Auto) 0.0 (0.0-4.0) % Baso % (Auto) 0.2 (0.0-2.0) % Neut # 12.5 H (1.8-7.0) K/uL Lymph # 0.4 L (1.0-4.3) K/uL [place] # 0.8 (0.0-0.8) K/uL Eos # 0.0 (0.0-0.7) K/uL Baso # 0.0 (0.0-0.2) K/uL Neutrophils % (Manual) 91 H (50-75) % Lymphocytes % (Manual) 4 L (20-40) % Monocytes % (Manual) 5 (0-10) % Platelet Estimate Normal (NORMAL) RBC Morphology Normal Puncture Site Lr pCO2 61 H (35-45) mm/Hg pO2 79 L (80-100) mm/Hg HCO3 34.7 H (21-28) mmol/L ABG pH 7.42 (7.35-7.45) ABG Total CO2 41.5 H (22-28) mmol/L ABG O2 Saturation 96.7 (95-98) % ABG Base Excess 12.6 H (-2.0-3.0) mmol/L ABG Hemoglobin 12.6 (11.7-17.4) g/dL ABG Carboxyhemoglobin 1.4 (0.5-1.5) % POC ABG HHb (Measured) 3.2 (0.0-5.0) % ABG Methemoglobin 0.9 (0.0-3.0) % Sj Test Pos A-a O2 Difference 273.0 mm/Hg Respiratory Index 3.5 Hgb O2 Saturation 94.4 L (95.0-98.0) % Vent Mode Prvc Mechanical Rate 12 FiO2 60.0 % Tidal Volume 500 PEEP 5 Sodium 143 (132-148) mmol/L Potassium 3.5 L (3.6-5.2) mmol/L Chloride 102 (98-107) mmol/L Carbon Dioxide 33 H (22-30) mmol/L Anion Gap 12 (10-20) BUN 44 H (7-17) mg/dL Creatinine 0.6 L (0.7-1.2) MG/DL Est GFR ( Amer) > 60 Est GFR (Non-Af Amer) > 60 Random Glucose 148 H (65-105) mg/dL Calcium 8.3 L (8.6-10.4) mg/dl Phosphorus 4.3 (2.5-4.5) mg/dL Magnesium 2.3 (1.6-2.3) mg/dL Total Bilirubin 0.7 (0.2-1.3) mg/dL AST 27 (14-36) U/L ALT 33 (9-52) U/L Alkaline Phosphatase 53 (38-126) U/L Total Protein 6.4 (6.3-8.3) g/dL Albumin 3.2 L (3.5-5.0) g/dL Globulin 3.2 (2.2-3.9) gm/dL Albumin/Globulin Ratio 1.0 (1.0-2.1) Laboratory Results - last 24 hr 05/28/17 05/28/17 05/28/17 05:05 05:59 05:59 WBC 13.8 H RBC 4.88 Hgb 12.8 Hct 41.2 MCV 84.3 MCH 26.3 L MCHC 31.2 L RDW 16.6 H Plt Count 237 MPV 8.3 Neut % (Auto) 90.9 H Lymph % (Auto) 3.2 L [place] % (Auto) 5.7 Eos % (Auto) 0.0 Baso % (Auto) 0.2 Neut # 12.5 H Lymph # 0.4 L [place] # 0.8 Eos # 0.0 Baso # 0.0 Neutrophils % (Manual) 91 H Lymphocytes % (Manual) 4 L Monocytes % (Manual) 5 Platelet Estimate Normal RBC Morphology Normal Puncture Site Lr pCO2 61 H pO2 79 L HCO3 34.7 H ABG pH 7.42 ABG Total CO2 41.5 H ABG O2 Saturation 96.7 ABG Base Excess 12.6 H ABG Hemoglobin 12.6 ABG Carboxyhemoglobin 1.4 POC ABG HHb (Measured) 3.2 ABG Methemoglobin 0.9 Sj Test Pos A-a O2 Difference 273.0 Respiratory Index 3.5 Hgb O2 Saturation 94.4 L Vent Mode Prvc Mechanical Rate 12 FiO2 60.0 Tidal Volume 500 PEEP 5 Sodium 143 Potassium 3.5 L Chloride 102 Carbon Dioxide 33 H Anion Gap 12 BUN 44 H Creatinine 0.6 L Est GFR ( Amer) > 60 Est GFR (Non-Af Amer) > 60 Random Glucose 148 H Calcium 8.3 L Phosphorus 4.3 Magnesium 2.3 Total Bilirubin 0.7 AST 27 ALT 33 Alkaline Phosphatase 53 Total Protein 6.4 Albumin 3.2 L Globulin 3.2 Albumin/Globulin Ratio 1.0 Assessment/Plan (1) Respiratory acidosis Current Visit: Yes Status: Acute (2) COPD exacerbation Current Visit: Yes Status: Acute (3) Elevated troponin Current Visit: Yes Status: Acute (4) Atrial fibrillation, new onset Current Visit: Yes Status: Acute (5) Cardiomegaly Current Visit: Yes Status: Acute (6) Elevated WBCs Current Visit: Yes Status: Acute (7) Abnormal RBC indices Current Visit: Yes Status: Acute (8) History of hypertension Current Visit: Yes Status: Acute (9) History of hyperlipidemia Current Visit: Yes Status: Acute (10) Change in mental state Current Visit: Yes Status: Acute (11) History of dementia Current Visit: Yes Status: Acute (12) History of gastroesophageal reflux (GERD) Current Visit: Yes Status: Acute (13) History of glaucoma Current Visit: Yes Status: Acute (14) Prophylactic measure Current Visit: Yes Status: Acute - Assessment and Plan (Free Text) Assessment: 76 year old female with PMHx of COPD, Asthma, HTN, Cardiomegaly, Dementia presenting with Respiratory acidosis likely 2/2 COPD exacerbation Pulmonary: Respiratory acidosis likely 2/2 COPD exacerbation; CT chest suspicious of left lower lobe pneumonia - Intubated (since 05/22) and sedated on Diprivan drip 1,000mg daily - Mri Technologist on board: Dr. Camejo - CT chest suspicious of left lower lobe pneumonia - pO2:FiO2 ratio is 111 - severe hypoxemia -Ventilation settings adjusted today and will continue to monitor ABGs - - Singular 10 mg PO daily - Duoneb 3 ml INH RQ6 - Mucomyst 4 ml INH RQ6 Cardio: Elevated troponin, A-fib, Cardiomegaly with Diastolic Heart Failure, HTN , HLD - Troponins elevated most likely 2/2 to CHF/COPD and hypoxemia - ProBNP elevated most likely 2/2 to COPD/CHF - New onset A-fib: [id number] score is 4. Continue therapeutic Lovenox 120 mg SC Q12 - detention anticoagulation difficult due to dementia and fall risk - 05/22 EKG: inferior, anterolateral ischemia. A-fib - 05/22 CXR: marked cardiomegaly. No focal consolidation, no pericardial effusion , no pneumothorax - 05/22 Echo: EF 60-65% with normal LVSF, basal anteroseptal wall hypokinesis. Moderate pulmonary hypertension. Right ventricle moderately dilated. - No further cardiac workup or intervention at this time per Cardiology, Dr. Hart - - Diltiazem 30 mg PO Q6 - Lovenox 120mg sc q12 - Enalapril 10 mg PO daily - Crestor 10 mg PO HS - Torsemide 20 mg PO daily - ASA 81 mg PO daily ID: Elevated WBCs; CT chest suspicious of left lower lobe pneumonia; sputum cx ( +) for gram positive cocci - sputum culture (+) for gram positive cocci - Blood and urine culture from 05/22 negative - Afebrile, possible stress response or transient increased due to steroid use - CT chest w/ evidence of left lower lobe pneumonia - Legionella antigen negative, Mycoplasma pneumoniae IgM negative - - Zosyn 3.375 mg IV Q8hr : Day 3 of 5 (started 05/26/17 ) - Azithromycin 500 mg IV daily: Day 3 of 7 (started 05/26/17) - Vanco 1 gm IV q12: Day 2 of (started on 05/27/17) Nephro: Elevated BUN:Cr - f/u urine spot electrolytes Integumentry: fungal rash underneath breasts b/l - nystatin topical powder Neuro: Dementia, altered mental status - continue home meds: Donepezil 5 mg PO HS - 05/[address] w/o contrast: no acute findings. GI: GERD , constipation - Protonix 40 mg NG daily - Start Colace 100 mg NG TID Heme: abnormal RBC indices - Hgb stable - patient has not had a bowel movement in a few days, will discontinue Ferrous sulfate Ophtho: Glaucoma - Dorzolamide 10 ml OU TID Prophylaxis: DVT: Lovenox 120mg SC Q12 GI: Protonix 40 mg NG daily Multivitamins <Richard Calle - Last Filed: 05/30/17 10:55> CCU Objective - Vital Signs / Intake & Output Vital Signs (Last 4 hours): Vital Signs Temp Pulse Resp BP Pulse Ox 05/30/17 09:22 83 14 84/29 L 97 05/30/17 09:00 83 14 87/30 L 97 05/30/17 08:14 88 17 93/35 L 96 05/30/17 07:50 99.0 F 05/30/17 07:00 84 14 87/35 L 96 Intake and Output (Last 8hrs): Intake & Output 05/29/17 05/30/17 05/30/17 22:59 06:59 14:59 Intake Total 600 790 288.3 Output Total 1620 940 80 Balance -1020 -150 208.3 Weight 268 lb 9.6 oz Intake: IV 100 20 Intake, IV Amount 180 430 178.3 Right Forearm 100 350 167 Right Hand 80 80 11.3 Tube Feeding 320 360 90 Output: Urine 1620 940 80 Urethral (Saenz) 1620 940 80 Other: # Bowel Movements 1 - Medications Active Medications: Active Medications Generic Name Dose Route Start Last Admin Trade Name Freq PRN Reason Stop Dose Admin Acetylcysteine 4 ml 05/25/17 09:15 05/30/17 07:34 Acetylcysteine 20% INH 4 ml RQ6 ALISA Administration Albuterol/Ipratropium 3 ml 05/28/17 18:45 05/30/17 07:34 Duoneb 3 Mg/0.5 Mg (3 Ml) Ud INH 3 ml RQ6 ALISA Administration Aspirin 81 mg 05/25/17 10:00 05/30/17 10:02 Aspirin Chewable PO 81 mg DAILY ALISA Administration Diltiazem HCl 30 mg 05/26/17 12:00 05/30/17 05:20 Cardizem PO 30 mg Q6H ALISA Administration Dorzolamide HCl 10 ml 05/22/17 18:00 05/30/17 10:02 Trusopt OU 1 drop TID ALISA Administration Enalapril Maleate 10 mg 05/23/17 10:00 05/29/17 09:17 Vasotec PO 10 mg DAILY ALISA Administration Enoxaparin Sodium 120 mg 05/23/17 22:00 05/30/17 10:02 Lovenox SC 120 mg Q12 ALISA Administration Furosemide 20 mg 05/29/17 18:00 05/29/17 21:09 Lasix IVP 20 mg Q12 ALISA Administration Propofol 1,000 mg in 100 mls @ 3.742 mls/hr 05/22/17 18:47 05/30/17 09:00 Diprivan IV 0 mcg/kg/min .Q24H PRN 0 mls/hr Agitation Titration Protocol 5 MCG/KG/MIN Piperacillin Sod/Tazobactam 100 mls @ 200 mls/hr 05/26/17 10:30 05/30/17 10: 32 Sod 3.375 gm/ Sodium Chloride IVPB 200 mls/hr Q8H ALISA Administration Azithromycin 500 mg/ Sodium 250 mls @ 250 mls/hr 05/26/17 11:00 05/29/17 12: 14 Chloride IVPB 250 mls/hr DAILY@1100 ALISA Administration Vancomycin HCl 1 gm/ Sodium 250 mls @ 166.7 mls/hr 05/27/17 09:00 05/30/17 08 :03 Chloride IVPB 166.7 mls/hr Q12H ALISA Administration Montelukast Sodium 10 mg 05/23/17 10:00 05/30/17 10:02 Singulair PO 10 mg DAILY ALISA Administration Multivitamins 1 tab 05/22/17 13:45 05/30/17 10:02 Hexavitamin PO 1 tab DAILY ALISA Administration Nystatin 1 applic 05/27/17 10:30 05/30/17 10:03 Nystop Topical Powder TOP 1 pow TID ALISA Administration Pantoprazole Sodium 40 mg 05/23/17 10:00 05/30/17 10:02 Protonix Susp NG 40 mg DAILY ALISA Administration Rosuvastatin Calcium 10 mg 05/22/17 22:00 05/29/17 21:09 Crestor PO 10 mg HS ALISA Administration - Patient Studies Lab Studies: Lab Studies 05/30/17 05/30/17 05/30/17 Range/Units 06:26 06:25 04:59 WBC 13.9 H (4.8-10.8) K/uL RBC 4.41 (3.80-5.20) Mil/uL Hgb 11.6 (11.0-16.0) g/dL Hct 36.9 (34.0-47.0) % MCV 83.7 (81.0-99.0) fL MCH 26.2 L (27.0-31.0) pg MCHC 31.3 L (33.0-37.0) g/dL RDW 16.7 H (11.5-14.5) % Plt Count 244 (130-400) K/uL MPV 8.6 (7.2-11.7) fL Neut % (Auto) 86.6 H (50.0-75.0) % Lymph % (Auto) 5.3 L (20.0-40.0) % [place] % (Auto) 7.3 (0.0-10.0) % Eos % (Auto) 0.4 (0.0-4.0) % Baso % (Auto) 0.4 (0.0-2.0) % Neut # 12.0 H (1.8-7.0) K/uL Lymph # 0.7 L (1.0-4.3) K/uL [place] # 1.0 H (0.0-0.8) K/uL Eos # 0.1 (0.0-0.7) K/uL Baso # 0.1 (0.0-0.2) K/uL Neutrophils % (Manual) 88 H (50-75) % Lymphocytes % (Manual) 4 L (20-40) % Monocytes % (Manual) 8 (0-10) % Platelet Estimate Normal (NORMAL) Hypochromasia (manual) Slight Poikilocytosis (manual Slight Anisocytosis (manual) Slight Target Cells Slight Tear Drop Cells Slight Ovalocytes Slight Puncture Site Rb pCO2 46 H (35-45) mm/Hg pO2 67 L (80-100) mm/Hg HCO3 34.4 H (21-28) mmol/L ABG pH 7.51 H (7.35-7.45) ABG Total CO2 38.1 H (22-28) mmol/L ABG O2 Saturation 96.7 (95-98) % ABG Base Excess 12.2 H (-2.0-3.0) mmol/L ABG Hemoglobin 11.7 (11.7-17.4) g/dL ABG Carboxyhemoglobin 1.7 H (0.5-1.5) % POC ABG HHb (Measured) 3.2 (0.0-5.0) % ABG Methemoglobin 0.8 (0.0-3.0) % Sj Test Na A-a O2 Difference 303.0 mm/Hg Respiratory Index 4.5 Hgb O2 Saturation 94.2 L (95.0-98.0) % Vent Mode Prvc Mechanical Rate 14 FiO2 60.0 % Tidal Volume 550 PEEP 7 Pressure Support CPAP Sodium 146 (132-148) mmol/L Potassium 3.9 (3.6-5.2) mmol/L Chloride 105 (98-107) mmol/L Carbon Dioxide 31 H (22-30) mmol/L Anion Gap 14 (10-20) BUN 45 H (7-17) mg/dL Creatinine 0.5 L (0.7-1.2) MG/DL Est GFR ( Amer) > 60 Est GFR (Non-Af Amer) > 60 Random Glucose 131 H (65-105) mg/dL Calcium 7.7 L (8.6-10.4) mg/dl Phosphorus 3.8 (2.5-4.5) mg/dL Magnesium 2.3 (1.6-2.3) mg/dL Total Bilirubin 0.9 (0.2-1.3) mg/dL AST 33 (14-36) U/L ALT 35 (9-52) U/L Alkaline Phosphatase 46 (38-126) U/L Total Protein 5.2 L (6.3-8.3) g/dL Albumin 2.7 L (3.5-5.0) g/dL Globulin 2.6 (2.2-3.9) gm/dL Albumin/Globulin Ratio 1.0 (1.0-2.1) Urine Chloride (32-290) mmol/L Vancomycin Trough (5.0-10.0) ug/mL 05/29/17 05/29/17 05/28/17 Range/Units 19:47 11:32 13:16 WBC (4.8-10.8) K/uL RBC (3.80-5.20) Mil/uL Hgb (11.0-16.0) g/dL Hct (34.0-47.0) % MCV (81.0-99.0) fL MCH (27.0-31.0) pg MCHC (33.0-37.0) g/dL RDW (11.5-14.5) % Plt Count (130-400) K/uL MPV (7.2-11.7) fL Neut % (Auto) (50.0-75.0) % Lymph % (Auto) (20.0-40.0) % [place] % (Auto) (0.0-10.0) % Eos % (Auto) (0.0-4.0) % Baso % (Auto) (0.0-2.0) % Neut # (1.8-7.0) K/uL Lymph # (1.0-4.3) K/uL [place] # (0.0-0.8) K/uL Eos # (0.0-0.7) K/uL Baso # (0.0-0.2) K/uL Neutrophils % (Manual) (50-75) % Lymphocytes % (Manual) (20-40) % Monocytes % (Manual) (0-10) % Platelet Estimate (NORMAL) Hypochromasia (manual) Poikilocytosis (manual Anisocytosis (manual) Target Cells Tear Drop Cells Ovalocytes Puncture Site Lb pCO2 46 H (35-45) mm/Hg pO2 69 L (80-100) mm/Hg HCO3 32.2 H (21-28) mmol/L ABG pH 7.48 H (7.35-7.45) ABG Total CO2 35.7 H (22-28) mmol/L ABG O2 Saturation 95.9 (95-98) % ABG Base Excess 9.5 H (-2.0-3.0) mmol/L ABG Hemoglobin 12.9 (11.7-17.4) g/dL ABG Carboxyhemoglobin 1.4 (0.5-1.5) % POC ABG HHb (Measured) 4.0 (0.0-5.0) % ABG Methemoglobin 1.3 (0.0-3.0) % Sj Test Na A-a O2 Difference 266.0 mm/Hg Respiratory Index 3.9 Hgb O2 Saturation 93.4 L (95.0-98.0) % Vent Mode Cpap Mechanical Rate FiO2 55.0 % Tidal Volume PEEP Pressure Support 10 CPAP 8 Sodium (132-148) mmol/L Potassium (3.6-5.2) mmol/L Chloride (98-107) mmol/L Carbon Dioxide (22-30) mmol/L Anion Gap (10-20) BUN (7-17) mg/dL Creatinine (0.7-1.2) MG/DL Est GFR ( Amer) Est GFR (Non-Af Amer) Random Glucose (65-105) mg/dL Calcium (8.6-10.4) mg/dl Phosphorus (2.5-4.5) mg/dL Magnesium (1.6-2.3) mg/dL Total Bilirubin (0.2-1.3) mg/dL AST (14-36) U/L ALT (9-52) U/L Alkaline Phosphatase (38-126) U/L Total Protein (6.3-8.3) g/dL Albumin (3.5-5.0) g/dL Globulin (2.2-3.9) gm/dL Albumin/Globulin Ratio (1.0-2.1) Urine Chloride <15 L (32-290) mmol/L Vancomycin Trough 14.1 H (5.0-10.0) ug/mL Laboratory Results - last 24 hr 05/28/17 05/29/17 05/29/17 13:16 11:32 19:47 WBC RBC Hgb Hct MCV MCH MCHC RDW Plt Count MPV Neut % (Auto) Lymph % (Auto) [place] % (Auto) Eos % (Auto) Baso % (Auto) Neut # Lymph # [place] # Eos # Baso # Neutrophils % (Manual) Lymphocytes % (Manual) Monocytes % (Manual) Platelet Estimate Hypochromasia (manual) Poikilocytosis (manual Anisocytosis (manual) Target Cells Tear Drop Cells Ovalocytes Puncture Site Lb pCO2 46 H pO2 69 L HCO3 32.2 H ABG pH 7.48 H ABG Total CO2 35.7 H ABG O2 Saturation 95.9 ABG Base Excess 9.5 H ABG Hemoglobin 12.9 ABG Carboxyhemoglobin 1.4 POC ABG HHb (Measured) 4.0 ABG Methemoglobin 1.3 Sj Test Na A-a O2 Difference 266.0 Respiratory Index 3.9 Hgb O2 Saturation 93.4 L Vent Mode Cpap Mechanical Rate FiO2 55.0 Tidal Volume PEEP Pressure Support 10 CPAP 8 Sodium Potassium Chloride Carbon Dioxide Anion Gap BUN Creatinine Est GFR ( Amer) Est GFR (Non-Af Amer) Random Glucose Calcium Phosphorus Magnesium Total Bilirubin AST ALT Alkaline Phosphatase Total Protein Albumin Globulin Albumin/Globulin Ratio Urine Chloride <15 L Vancomycin Trough 14.1 H 05/30/17 05/30/17 05/30/17 04:59 06:25 06:26 WBC 13.9 H RBC 4.41 Hgb 11.6 Hct 36.9 MCV 83.7 MCH 26.2 L MCHC 31.3 L RDW 16.7 H Plt Count 244 MPV 8.6 Neut % (Auto) 86.6 H Lymph % (Auto) 5.3 L [place] % (Auto) 7.3 Eos % (Auto) 0.4 Baso % (Auto) 0.4 Neut # 12.0 H Lymph # 0.7 L [place] # 1.0 H Eos # 0.1 Baso # 0.1 Neutrophils % (Manual) 88 H Lymphocytes % (Manual) 4 L Monocytes % (Manual) 8 Platelet Estimate Normal Hypochromasia (manual) Slight Poikilocytosis (manual Slight Anisocytosis (manual) Slight Target Cells Slight Tear Drop Cells Slight Ovalocytes Slight Puncture Site Rb pCO2 46 H pO2 67 L HCO3 34.4 H ABG pH 7.51 H ABG Total CO2 38.1 H ABG O2 Saturation 96.7 ABG Base Excess 12.2 H ABG Hemoglobin 11.7 ABG Carboxyhemoglobin 1.7 H POC ABG HHb (Measured) 3.2 ABG Methemoglobin 0.8 Sj Test Na A-a O2 Difference 303.0 Respiratory Index 4.5 Hgb O2 Saturation 94.2 L Vent Mode Prvc Mechanical Rate 14 FiO2 60.0 Tidal Volume 550 PEEP 7 Pressure Support CPAP Sodium 146 Potassium 3.9 Chloride 105 Carbon Dioxide 31 H Anion Gap 14 BUN 45 H Creatinine 0.5 L Est GFR ( Amer) > 60 Est GFR (Non-Af Amer) > 60 Random Glucose 131 H Calcium 7.7 L Phosphorus 3.8 Magnesium 2.3 Total Bilirubin 0.9 AST 33 ALT 35 Alkaline Phosphatase 46 Total Protein 5.2 L Albumin 2.7 L Globulin 2.6 Albumin/Globulin Ratio 1.0 Urine Chloride Vancomycin Trough Attending/Attestation - Attestation I have personally seen and examined this patient.: Yes I have fully participated in the care of the patient.: Yes I have reviewed all pertinent clinical information: Yes Notes (Text): Today: May The Patient was seen and examined at the bedside, Medical records reviewed, and management issues were discussed and formulated with the house staff. Pain issues, skin care, head of the bed elevation, glycemic control were addressed. I have reviewed all the relevant clinical, laboratory, hemodynamic, radiographic data and medications I concur with resident's History & Physical exam, assessment and plan of care as transcribed in Dr. Srinivasan note.
[2017-05-28] MEDS ORDERED: Albuterol-Ipratrop 3 mg / 0.5 (3 ml) UD INH PRN ×2 (09:39→11:45)
--- NOTE | 2017-05-28 10:05 | RAD ---
Chest x-ray single frontal view History: Intubation. Comparison: 05/27/2017 Findings: Lines and tubes stable position. Moderate to severe venous congestion with confluent airspace consolidative changes in the right mid to lower lung zone and left lung base. Suggestion of moderate right and small left pleural effusion. Scattered nodular densities within both lungs with a rounded nodular density in the lateral aspect of the right midlung zone. Cardiomegaly. Degenerative changes in the spine and shoulders. Impression: Lines and tubes stable position. Moderate to severe venous congestion with confluent airspace consolidative changes in the right mid to lower lung zone and left lung base. Suggestion of moderate right and small left pleural effusion. Scattered nodular densities within both lungs with a rounded nodular density in the lateral aspect of the right midlung zone. Cardiomegaly.
[2017-05-28 11:32] LABS: ABG MECHANICAL RATE 14; ARTERIAL BLOOD GAS MODE PRVC; ARTERIAL BLOOD HGB O2 SAT 91.9 % (95.0-98.0); ATERIAL BLOOD GAS PEEP 5; CARBOXYHEMOGLOBIN 1.6 % (0.5-1.5); DRAW SITE RB; HHB 5.8 % (0.0-5.0); METHEMOGLOBIN 0.7 % (0.0-3.0)
[2017-05-28] MEDS ORDERED: Potassium Chloride 20 mEq/15 ml LIQ UD PO ONE (11:45)
--- NOTE | 2017-05-28 12:00 | CP.PCM.PN ---
Subjective - Date & Time of Evaluation Date of Evaluation: 05/28/17 Time of Evaluation: 10:30 - Subjective Subjective: Patient seen and examined in the intensive care unit Remains intubated on ventilatory support FiO2 60% with saturation in the low 90s Afebrile Tolerating feeding Open eyes to stimuli For CAT scan of the chest Continue antibiotics Continue steroids and nebulizer treat Objective - Vital Signs/Intake and Output Vital Signs (last 24 hours): Temp Pulse Resp BP Pulse Ox 98.6 F 77 12 129/61 95 05/28/17 08:00 05/28/17 08:00 05/28/17 08:00 05/28/17 09:06 05/28/17 08:00 Intake and Output: 05/28/17 05/28/17 06:59 18:59 Intake Total 1140 Output Total 555 Balance 585 - Medications Medications: Current Medications Acetylcysteine (Acetylcysteine 20%) 4 ml INH RQ6 [facility] Last Admin: 05/28/17 07:26 Dose: 4 ml Albuterol/Ipratropium (Duoneb 3 Mg/0.5 Mg (3 Ml) Ud) 3 ml INH RQ6 PRN PRN Reason: Shortness of Breath Aspirin (Aspirin Chewable) 81 mg PO DAILY [facility] Last Admin: 05/28/17 09:05 Dose: 81 mg Diltiazem HCl (Cardizem) 30 mg PO Q6H [facility] Last Admin: 05/28/17 05:44 Dose: 30 mg Dorzolamide HCl (Trusopt) 10 ml OU TID [facility] Last Admin: 05/28/17 09:08 Dose: 1 drop Enalapril Maleate (Vasotec) 10 mg PO DAILY [facility] Last Admin: 05/28/17 09:06 Dose: 10 mg Enoxaparin Sodium (Lovenox) 120 mg SC Q12 [facility] Last Admin: 05/28/17 09:06 Dose: 120 mg Propofol (Diprivan) 1,000 mg in 100 mls @ 3.742 mls/hr IV .Q24H PRN; Protocol; 5 MCG/KG/MIN PRN Reason: Agitation Last Admin: 05/28/17 00:33 Dose: 20.04 mcg/kg/min, 14.998 mls/hr Piperacillin Sod/Tazobactam (Sod 3.375 gm/ Sodium Chloride) 100 mls @ 200 mls/ hr IVPB Q8H [facility] Last Admin: 05/28/17 09:47 Dose: 200 mls/hr Azithromycin 500 mg/ Sodium (Chloride) 250 mls @ 250 mls/hr IVPB DAILY@1100 [facility] Last Admin: 05/27/17 10:29 Dose: 250 mls/hr Vancomycin HCl 1 gm/ Sodium (Chloride) 250 mls @ 166.7 mls/hr IVPB Q12H [facility] Last Admin: 05/28/17 09:45 Dose: 166.7 mls/hr Methylprednisolone (Solu-Medrol) 40 mg IV Q12 [facility] Last Admin: 05/28/17 09:07 Dose: 40 mg Montelukast Sodium (Singulair) 10 mg PO DAILY [facility] Last Admin: 05/28/17 09:06 Dose: 10 mg Multivitamins (Hexavitamin) 1 tab PO DAILY [facility] Last Admin: 05/28/17 09:05 Dose: 1 tab Nystatin (Nystop Topical Powder) 1 applic TOP TID [facility] Last Admin: 05/28/17 10:24 Dose: Not Given Pantoprazole Sodium (Protonix Susp) 40 mg NG DAILY [facility] Last Admin: 05/28/17 09:05 Dose: 40 mg Rosuvastatin Calcium (Crestor) 10 mg PO HS [facility] Last Admin: 05/27/17 22:35 Dose: 10 mg Torsemide (Demadex) 20 mg PO DAILY [facility] Last Admin: 05/28/17 09:06 Dose: 20 mg - Labs Labs: 05/28/17 05:59 05/28/17 05:59 - Head Exam Head Exam: ATRAUMATIC, NORMOCEPHALIC - Eye Exam Eye Exam: Normal appearance - ENT Exam ENT Exam: Mucous Membranes Moist - Neck Exam Neck Exam: Normal Inspection - Respiratory Exam Respiratory Exam: Decreased Breath Sounds, Rales - Cardiovascular Exam Cardiovascular Exam: Irregular Rhythm - GI/Abdominal Exam GI & Abdominal Exam: Soft, Normal Bowel Sounds - Extremities Exam Extremities Exam: Full ROM - Neurological Exam Neurological Exam: Altered Assessment and Plan (1) Acute respiratory failure with hypoxia and hypercapnia Assessment & Plan: continue IV antibiotics Continue nebulizer treatment and steroids Ventilatory support and reduce FiO2 as tolerated CAT scan of the chest Status: Acute (2) Atrial fibrillation, new onset Status: Acute (3) COPD exacerbation Status: Acute
[2017-05-28] MEDS: Azithromycin 500 MG in Sodium Chloride 0.9% 250 ML IVPB SCH (12:19)
--- NOTE | 2017-05-28 13:16 | CP.PCM.PN ---
Subjective - Date & Time of Evaluation Date of Evaluation: 05/28/17 Time of Evaluation: 14:00 - Subjective Subjective: Patient was seen and examined at bedside in ICU. Patient is intubated but is awake and alert and responsive. Objective - Vital Signs/Intake and Output Vital Signs (last 24 hours): Temp Pulse Resp BP Pulse Ox 98.6 F 77 12 129/61 95 05/28/17 08:00 05/28/17 08:00 05/28/17 08:00 05/28/17 09:06 05/28/17 08:00 Intake and Output: 05/28/17 05/28/17 06:59 18:59 Intake Total 1140 100 Output Total 555 Balance 585 100 - Medications Medications: Current Medications Acetylcysteine (Acetylcysteine 20%) 4 ml INH RQ6 [facility] Last Admin: 05/28/17 07:26 Dose: 4 ml Albuterol/Ipratropium (Duoneb 3 Mg/0.5 Mg (3 Ml) Ud) 3 ml INH RQ6 PRN PRN Reason: Shortness of Breath Aspirin (Aspirin Chewable) 81 mg PO DAILY [facility] Last Admin: 05/28/17 09:05 Dose: 81 mg Diltiazem HCl (Cardizem) 30 mg PO Q6H [facility] Last Admin: 05/28/17 12:18 Dose: 30 mg Dorzolamide HCl (Trusopt) 10 ml OU TID [facility] Last Admin: 05/28/17 13:07 Dose: 1 drop Enalapril Maleate (Vasotec) 10 mg PO DAILY [facility] Last Admin: 05/28/17 09:06 Dose: 10 mg Enoxaparin Sodium (Lovenox) 120 mg SC Q12 [facility] Last Admin: 05/28/17 09:06 Dose: 120 mg Propofol (Diprivan) 1,000 mg in 100 mls @ 3.742 mls/hr IV .Q24H PRN; Protocol; 5 MCG/KG/MIN PRN Reason: Agitation Last Admin: 05/28/17 12:21 Dose: 20.04 mcg/kg/min, 14.998 mls/hr Piperacillin Sod/Tazobactam (Sod 3.375 gm/ Sodium Chloride) 100 mls @ 200 mls/ hr IVPB Q8H [facility] Last Admin: 05/28/17 09:47 Dose: 200 mls/hr Azithromycin 500 mg/ Sodium (Chloride) 250 mls @ 250 mls/hr IVPB DAILY@1100 [facility] Last Admin: 05/28/17 12:19 Dose: 250 mls/hr Vancomycin HCl 1 gm/ Sodium (Chloride) 250 mls @ 166.7 mls/hr IVPB Q12H [facility] Last Admin: 05/28/17 09:45 Dose: 166.7 mls/hr Methylprednisolone (Solu-Medrol) 40 mg IV Q12 [facility] Last Admin: 05/28/17 09:07 Dose: 40 mg Montelukast Sodium (Singulair) 10 mg PO DAILY [facility] Last Admin: 05/28/17 09:06 Dose: 10 mg Multivitamins (Hexavitamin) 1 tab PO DAILY [facility] Last Admin: 05/28/17 09:05 Dose: 1 tab Nystatin (Nystop Topical Powder) 1 applic TOP TID [facility] Last Admin: 05/28/17 13:07 Dose: 1 pow Pantoprazole Sodium (Protonix Susp) 40 mg NG DAILY [facility] Last Admin: 05/28/17 09:05 Dose: 40 mg Rosuvastatin Calcium (Crestor) 10 mg PO HS [facility] Last Admin: 05/27/17 22:35 Dose: 10 mg Torsemide (Demadex) 20 mg PO DAILY [facility] Last Admin: 05/28/17 09:06 Dose: 20 mg - Labs Labs: 05/28/17 05:59 05/28/17 05:59 - Head Exam Head Exam: ATRAUMATIC, NORMOCEPHALIC - Eye Exam Eye Exam: EOMI, Normal appearance - ENT Exam ENT Exam: Mucous Membranes Moist - Respiratory Exam Respiratory Exam: absent: Chest Wall Tenderness Additional comments: On ventilator support. Transmitted breath sounds. - Cardiovascular Exam Cardiovascular Exam: REGULAR RHYTHM, +S1, +S2 - GI/Abdominal Exam GI & Abdominal Exam: Soft. absent: Tenderness - Extremities Exam Extremities Exam: absent: Pedal Edema Assessment and Plan (1) Pneumonia Assessment & Plan: Continue antibiotics. Patient is on Zosyn and azithromycin. Status: Acute (2) Acute respiratory failure with hypoxia and hypercapnia Assessment & Plan: Patient is on ventilator support. Weaning trial as proceeding. Status: Acute (3) COPD exacerbation Assessment & Plan: Patient is currently intubated. Continue Solu-Medrol and nebulizing treatment. Status: Acute (4) Atrial fibrillation, new onset Assessment & Plan: Rate controlled now. Continue Cardizem by mouth for rate control. Patient is on therapeutic anticoagulation with Lovenox. Status: Acute (5) CHF (congestive heart failure) Assessment & Plan: Continue current management as per ICU team. Status: Acute (6) Elevated WBCs Assessment & Plan: Likely secondary to pneumonia. Patient is on IV antibiotics. WBC is trending down. Status: Acute (7) History of hyperlipidemia Assessment & Plan: Continue statin. Status: Acute (8) History of hypertension Assessment & Plan: Continue current medication. Blood pressures controlled. Status: Acute
--- NOTE | 2017-05-28 22:38 | CP.PCM.PN ---
Subjective - Date & Time of Evaluation Date of Evaluation: 05/28/17 Time of Evaluation: 08:35 - Subjective Subjective: Patient seen and evaluated Intubated Responsive Physical examination - Head Exam Head Exam: ATRAUMATIC, NORMOCEPHALIC - Eye Exam Eye Exam: EOMI, Normal appearance - ENT Exam ENT Exam: Mucous Membranes Moist - Respiratory Exam Respiratory Exam: absent: Chest Wall Tenderness Additional comments: On ventilator support. Transmitted breath sounds. - Cardiovascular Exam Cardiovascular Exam: REGULAR RHYTHM, +S1, +S2 - GI/Abdominal Exam GI & Abdominal Exam: Soft. absent: Tenderness - Extremities Exam Extremities Exam: absent: Pedal Edema Objective - Vital Signs/Intake and Output Vital Signs (last 24 hours): Temp Pulse Resp BP Pulse Ox 98.2 F 84 15 123/60 91 L 05/28/17 16:00 05/28/17 18:00 05/28/17 18:00 05/28/17 18:00 05/28/17 18:00 Intake and Output: 05/28/17 05/29/17 18:59 06:59 Intake Total 740 Output Total 750 Balance -10 - Medications Medications: Current Medications Acetylcysteine (Acetylcysteine 20%) 4 ml INH RQ6 [facility] Last Admin: 05/28/17 21:13 Dose: 4 ml Albuterol/Ipratropium (Duoneb 3 Mg/0.5 Mg (3 Ml) Ud) 3 ml INH RQ6 [facility] Last Admin: 05/28/17 21:13 Dose: 3 ml Aspirin (Aspirin Chewable) 81 mg PO DAILY [facility] Last Admin: 05/28/17 09:05 Dose: 81 mg Diltiazem HCl (Cardizem) 30 mg PO Q6H [facility] Last Admin: 05/28/17 17:50 Dose: Not Given Dorzolamide HCl (Trusopt) 10 ml OU TID [facility] Last Admin: 05/28/17 17:47 Dose: 1 drop Enalapril Maleate (Vasotec) 10 mg PO DAILY [facility] Last Admin: 05/28/17 09:06 Dose: 10 mg Enoxaparin Sodium (Lovenox) 120 mg SC Q12 [facility] Last Admin: 05/28/17 09:06 Dose: 120 mg Propofol (Diprivan) 1,000 mg in 100 mls @ 3.742 mls/hr IV .Q24H PRN; Protocol; 5 MCG/KG/MIN PRN Reason: Agitation Last Admin: 05/28/17 16:24 Dose: 20 mcg/kg/min, 14.969 mls/hr Piperacillin Sod/Tazobactam (Sod 3.375 gm/ Sodium Chloride) 100 mls @ 200 mls/ hr IVPB Q8H [facility] Last Admin: 05/28/17 17:47 Dose: 200 mls/hr Azithromycin 500 mg/ Sodium (Chloride) 250 mls @ 250 mls/hr IVPB DAILY@1100 [facility] Last Admin: 05/28/17 12:19 Dose: 250 mls/hr Vancomycin HCl 1 gm/ Sodium (Chloride) 250 mls @ 166.7 mls/hr IVPB Q12H [facility] Last Admin: 05/28/17 09:45 Dose: 166.7 mls/hr Methylprednisolone (Solu-Medrol) 40 mg IV Q12 [facility] Last Admin: 05/28/17 09:07 Dose: 40 mg Montelukast Sodium (Singulair) 10 mg PO DAILY [facility] Last Admin: 05/28/17 09:06 Dose: 10 mg Multivitamins (Hexavitamin) 1 tab PO DAILY [facility] Last Admin: 05/28/17 09:05 Dose: 1 tab Nystatin (Nystop Topical Powder) 1 applic TOP TID [facility] Last Admin: 05/28/17 17:48 Dose: 1 pow Pantoprazole Sodium (Protonix Susp) 40 mg NG DAILY [facility] Last Admin: 05/28/17 09:05 Dose: 40 mg Rosuvastatin Calcium (Crestor) 10 mg PO HS [facility] Last Admin: 05/27/17 22:35 Dose: 10 mg Torsemide (Demadex) 20 mg PO DAILY [facility] Last Admin: 05/28/17 09:06 Dose: 20 mg - Labs Labs: 05/28/17 05:59 05/28/17 05:59 Assessment and Plan - Assessment and Plan (Free Text) Assessment: Assessment and Plan (1) Pneumonia Assessment & Plan: Continue antibiotics. Patient is on Zosyn and azithromycin. Status: Acute (2) Acute respiratory failure with hypoxia and hypercapnia Assessment & Plan: Patient is on ventilator support. Weaning trial as proceeding. Status: Acute (3) COPD exacerbation Assessment & Plan: Patient is currently intubated. Continue Solu-Medrol and nebulizing treatment. Status: Acute (4) Atrial fibrillation, new onset Assessment & Plan: Rate controlled now. Continue Cardizem by mouth for rate control. Patient is on therapeutic anticoagulation with Lovenox. Status: Acute (5) CHF (congestive heart failure) Assessment & Plan: Continue current management as per ICU team. Status: Acute (6) Elevated WBCs Assessment & Plan: Likely secondary to pneumonia. Patient is on IV antibiotics. WBC is trending down. Status: Acute (7) History of hyperlipidemia Assessment & Plan: Continue statin. Status: Acute (8) History of hypertension Assessment & Plan: Continue current medication. Blood pressures controlled. Status: Acute
[2017-05-29] MEDS: Propofol 10 mg/ml 1,000 MG/100 ML VIAL IV PRN ×2 (00:13→10:12)
[2017-05-29] MEDS: Piperacillin/Tazobact 3.375 GM in Sodium Chloride 100 ML IVPB SCH ×3 (01:39→17:50)
[2017-05-29] MEDS: Albuterol-Ipratrop 3 mg / 0.5 (3 ml) UD INH SCH ×4 (01:52→21:02)
[2017-05-29] MEDS: Acetylcysteine 20% Inhal Soln (4ml) INH SCH ×3 (01:52→21:02)
[2017-05-29 05:42] LABS: ABG ALLEN TEST POS; ABG MECHANICAL RATE 14; ARTERIAL BLOOD GAS MODE PRVC; ARTERIAL BLOOD HGB O2 SAT 93.8 % (95.0-98.0); ATERIAL BLOOD GAS PEEP 5; CARBOXYHEMOGLOBIN 1.7 % (0.5-1.5); DRAW SITE LR; HHB 3.2 % (0.0-5.0); METHEMOGLOBIN 1.2 % (0.0-3.0)
[2017-05-29 06:38] LABS: BASO % 0.2 % (0.0-2.0); EOS % 0.1 % (0.0-4.0); HEMATOCRIT 39.9 % (34.0-47.0); LYMPH # 0.6 K/uL (1.0-4.3); LYMPH % 4.5 % (20.0-40.0); MEAN CORPUSCULAR HEMOGLOBIN 26.6 pg (27.0-31.0); MEAN CORPUSCULAR HGB CONC 31.6 g/dL (33.0-37.0); MEAN PLATELET VOLUME 8.3 fL (7.2-11.7); MONO # 0.7 K/uL (0.0-0.8); MONO % 4.6 % (0.0-10.0); PLATELET COUNT 257 K/uL (130-400); RED CELL DISTRIBUTION WIDTH 16.7 % (11.5-14.5); WHITE BLOOD COUNT 14.2 K/uL (4.8-10.8)
[2017-05-29 06:43] LABS: CHLORIDE 106 mmol/L (98-107)
[2017-05-29 06:44] LABS: POTASSIUM 3.8 mmol/L (3.6-5.2); SODIUM 145 mmol/L (132-148)
[2017-05-29 06:46] LABS: ALB/GLOB RATIO 1.1 (1.0-2.1); ALKALINE PHOSPHATASE 53 U/L (38-126); ALT/SGPT 33 U/L (9-52); AST/SGOT 24 U/L (14-36); BILIRUBIN,TOTAL 0.7 mg/dL (0.2-1.3); BLOOD UREA NITROGEN 48 mg/dL (7-17); CARBON DIOXIDE 31 mmol/L (22-30); GFR AFRICAN-AMERICAN > 60; GLUCOSE,RANDOM 140 mg/dL (65-105); TOTAL PROTEIN 5.7 g/dL (6.3-8.3)
[2017-05-29 06:47] LABS: CALCIUM 8.3 mg/dl (8.6-10.4); MAGNESIUM 2.4 mg/dL (1.6-2.3)
--- NOTE | 2017-05-29 07:19 | CP.CCUPN ---
<Chip Srinivasan - Last Filed: 05/29/17 16:07> CCU Subjective - Physician Review Subjective (Free Text): Patient seen and examined at bedside. Patient remains intubated, sedated and still hypoxic. Per nursing staff, no acute events overnight and remains easily arousable. Suction from ET tube has whitish secretions. ROS not obtained due to current status. Case discussed with house-staff; medical records and chart reviewed and labs discussed. 05/29/17 16:07 CCU Objective - Vital Signs / Intake & Output Vital Signs (Last 4 hours): Vital Signs Pulse Resp BP Pulse Ox 05/29/17 06:00 72 14 120/55 L 94 L 05/29/17 05:00 73 14 126/53 L 93 L 05/29/17 04:00 79 14 128/64 92 L Intake and Output (Last 8hrs): Intake & Output 05/28/17 05/29/17 05/29/17 22:59 06:59 14:59 Intake Total 640 370 Output Total 490 320 Balance 150 50 Weight 270 lb 8.115 oz Intake: IV 30 100 Intake, IV Amount 370 120 Right Forearm 250 Right Hand 120 120 Tube Feeding 240 150 Output: Urine 490 320 Urethral (Saenz) 490 320 Stool 0 Emesis 0 Other: # Bowel Movements 1 - Physical Exam Head: Positive for: Atraumatic, Normocephalic Pupils: Positive for: PERRL Extroacular Muscles: Positive for: EOMI Mouth: Positive for: Other (intubated; Suction from ET tube has whitish secretions) Respiratory/Chest: Positive for: Wheezes Cardiovascular: Positive for: Regular Rate and Rhythm, Normal S1, S2 Abdomen: Positive for: Normal Bowel Sounds. Negative for: Tenderness Neurological: Positive for: Other (Responding to deep stimuli) Psychiatric: Positive for: Other - Medications Active Medications: Active Medications Generic Name Dose Route Start Last Admin Trade Name Freq PRN Reason Stop Dose Admin Acetylcysteine 4 ml 05/25/17 09:15 05/29/17 01:52 Acetylcysteine 20% INH 4 ml RQ6 ALISA Administration Albuterol/Ipratropium 3 ml 05/28/17 18:45 05/29/17 01:52 Duoneb 3 Mg/0.5 Mg (3 Ml) Ud INH 3 ml RQ6 ALISA Administration Aspirin 81 mg 05/25/17 10:00 05/28/17 09:05 Aspirin Chewable PO 81 mg DAILY ALISA Administration Diltiazem HCl 30 mg 05/26/17 12:00 05/29/17 06:02 Cardizem PO Not Given Q6H ALISA Dorzolamide HCl 10 ml 05/22/17 18:00 05/28/17 17:47 Trusopt OU 1 drop TID ALISA Administration Enalapril Maleate 10 mg 05/23/17 10:00 05/28/17 09:06 Vasotec PO 10 mg DAILY ALISA Administration Enoxaparin Sodium 120 mg 05/23/17 22:00 05/28/17 22:59 Lovenox SC 120 mg Q12 ALISA Administration Propofol 1,000 mg in 100 mls @ 3.742 mls/hr 05/22/17 18:47 05/29/17 00:13 Diprivan IV 20 mcg/kg/min .Q24H PRN 14.969 mls/hr Agitation Administration Protocol 5 MCG/KG/MIN Piperacillin Sod/Tazobactam 100 mls @ 200 mls/hr 05/26/17 10:30 05/29/17 01: 39 Sod 3.375 gm/ Sodium Chloride IVPB 200 mls/hr Q8H ALISA Administration Azithromycin 500 mg/ Sodium 250 mls @ 250 mls/hr 05/26/17 11:00 05/28/17 12: 19 Chloride IVPB 250 mls/hr DAILY@1100 ALISA Administration Vancomycin HCl 1 gm/ Sodium 250 mls @ 166.7 mls/hr 05/27/17 09:00 05/28/17 20 :35 Chloride IVPB 166.7 mls/hr Q12H ALISA Administration Methylprednisolone 40 mg 05/25/17 10:00 05/28/17 22:59 Solu-Medrol IV 40 mg Q12 ALISA Administration Montelukast Sodium 10 mg 05/23/17 10:00 05/28/17 09:06 Singulair PO 10 mg DAILY ALISA Administration Multivitamins 1 tab 05/22/17 13:45 05/28/17 09:05 Hexavitamin PO 1 tab DAILY ALISA Administration Nystatin 1 applic 05/27/17 10:30 05/28/17 17:48 Nystop Topical Powder TOP 1 pow TID ALISA Administration Pantoprazole Sodium 40 mg 05/23/17 10:00 05/28/17 09:05 Protonix Susp NG 40 mg DAILY ALISA Administration Rosuvastatin Calcium 10 mg 05/22/17 22:00 05/28/17 22:59 Crestor PO 10 mg HS ALISA Administration Torsemide 20 mg 05/23/17 10:00 05/28/17 09:06 Demadex PO 20 mg DAILY ALISA Administration - Patient Studies Lab Studies: Microbiology Studies 05/26/17 10:48 Gram Stain - Final Trachasp Sputum Culture - Final NORMAL ORAL EMILEE Lab Studies 05/29/17 05/29/17 05/29/17 Range/Units 06:18 06:16 05:11 WBC 14.2 H (4.8-10.8) K/uL RBC 4.75 (3.80-5.20) Mil/uL Hgb 12.6 (11.0-16.0) g/dL Hct 39.9 (34.0-47.0) % MCV 84.0 (81.0-99.0) fL MCH 26.6 L (27.0-31.0) pg MCHC 31.6 L (33.0-37.0) g/dL RDW 16.7 H (11.5-14.5) % Plt Count 257 (130-400) K/uL MPV 8.3 (7.2-11.7) fL Neut % (Auto) 90.6 H (50.0-75.0) % Lymph % (Auto) 4.5 L (20.0-40.0) % Kimble % (Auto) 4.6 (0.0-10.0) % Eos % (Auto) 0.1 (0.0-4.0) % Baso % (Auto) 0.2 (0.0-2.0) % Neut # 12.9 H (1.8-7.0) K/uL Lymph # 0.6 L (1.0-4.3) K/uL Kimble # 0.7 (0.0-0.8) K/uL Eos # 0.0 (0.0-0.7) K/uL Baso # 0.0 (0.0-0.2) K/uL Neutrophils % (Manual) (50-75) % Lymphocytes % (Manual) (20-40) % Monocytes % (Manual) (0-10) % Platelet Estimate (NORMAL) RBC Morphology Puncture Site Lr pCO2 47 H (35-45) mm/Hg pO2 73 L (80-100) mm/Hg HCO3 33.4 H (21-28) mmol/L ABG pH 7.49 H (7.35-7.45) ABG Total CO2 37.2 H (22-28) mmol/L ABG O2 Saturation 96.7 (95-98) % ABG Base Excess 11.0 H (-2.0-3.0) mmol/L ABG Hemoglobin 12.5 (11.7-17.4) g/dL ABG Carboxyhemoglobin 1.7 H (0.5-1.5) % POC ABG HHb (Measured) 3.2 (0.0-5.0) % ABG Methemoglobin 1.2 (0.0-3.0) % Sj Test Pos A-a O2 Difference 296.0 mm/Hg Respiratory Index 4.1 Hgb O2 Saturation 93.8 L (95.0-98.0) % Vent Mode Prvc Mechanical Rate 14 FiO2 60.0 % Tidal Volume 550 PEEP 5 Sodium 145 (132-148) mmol/L Potassium 3.8 (3.6-5.2) mmol/L Chloride 106 (98-107) mmol/L Carbon Dioxide 31 H (22-30) mmol/L Anion Gap 12 (10-20) BUN 48 H (7-17) mg/dL Creatinine 0.6 L (0.7-1.2) MG/DL Est GFR ( Amer) > 60 Est GFR (Non-Af Amer) > 60 Random Glucose 140 H (65-105) mg/dL Calcium 8.3 L (8.6-10.4) mg/dl Phosphorus 4.0 (2.5-4.5) mg/dL Magnesium 2.4 H (1.6-2.3) mg/dL Total Bilirubin 0.7 (0.2-1.3) mg/dL AST 24 (14-36) U/L ALT 33 (9-52) U/L Alkaline Phosphatase 53 (38-126) U/L Total Protein 5.7 L (6.3-8.3) g/dL Albumin 3.0 L (3.5-5.0) g/dL Globulin 2.7 (2.2-3.9) gm/dL Albumin/Globulin Ratio 1.1 (1.0-2.1) Ur Random Sodium mmol/L Ur Random Potassium mmol/L 05/28/17 05/28/17 05/28/17 Range/Units 13:16 13:16 11:29 WBC (4.8-10.8) K/uL RBC (3.80-5.20) Mil/uL Hgb (11.0-16.0) g/dL Hct (34.0-47.0) % MCV (81.0-99.0) fL MCH (27.0-31.0) pg MCHC (33.0-37.0) g/dL RDW (11.5-14.5) % Plt Count (130-400) K/uL MPV (7.2-11.7) fL Neut % (Auto) (50.0-75.0) % Lymph % (Auto) (20.0-40.0) % Kimble % (Auto) (0.0-10.0) % Eos % (Auto) (0.0-4.0) % Baso % (Auto) (0.0-2.0) % Neut # (1.8-7.0) K/uL Lymph # (1.0-4.3) K/uL Kimble # (0.0-0.8) K/uL Eos # (0.0-0.7) K/uL Baso # (0.0-0.2) K/uL Neutrophils % (Manual) (50-75) % Lymphocytes % (Manual) (20-40) % Monocytes % (Manual) (0-10) % Platelet Estimate (NORMAL) RBC Morphology Puncture Site Rb pCO2 50 H (35-45) mm/Hg pO2 59 L (80-100) mm/Hg HCO3 33.5 H (21-28) mmol/L ABG pH 7.47 H (7.35-7.45) ABG Total CO2 37.9 H (22-28) mmol/L ABG O2 Saturation 94.1 L (95-98) % ABG Base Excess 11.1 H (-2.0-3.0) mmol/L ABG Hemoglobin 12.1 (11.7-17.4) g/dL ABG Carboxyhemoglobin 1.6 H (0.5-1.5) % POC ABG HHb (Measured) 5.8 H (0.0-5.0) % ABG Methemoglobin 0.7 (0.0-3.0) % Sj Test Na A-a O2 Difference 306.0 mm/Hg Respiratory Index 5.2 Hgb O2 Saturation 91.9 L (95.0-98.0) % Vent Mode Prvc Mechanical Rate 14 FiO2 60.0 % Tidal Volume 550 PEEP 5 Sodium (132-148) mmol/L Potassium (3.6-5.2) mmol/L Chloride (98-107) mmol/L Carbon Dioxide (22-30) mmol/L Anion Gap (10-20) BUN (7-17) mg/dL Creatinine (0.7-1.2) MG/DL Est GFR ( Amer) Est GFR (Non-Af Amer) Random Glucose (65-105) mg/dL Calcium (8.6-10.4) mg/dl Phosphorus (2.5-4.5) mg/dL Magnesium (1.6-2.3) mg/dL Total Bilirubin (0.2-1.3) mg/dL AST (14-36) U/L ALT (9-52) U/L Alkaline Phosphatase (38-126) U/L Total Protein (6.3-8.3) g/dL Albumin (3.5-5.0) g/dL Globulin (2.2-3.9) gm/dL Albumin/Globulin Ratio (1.0-2.1) Ur Random Sodium 53 mmol/L Ur Random Potassium 79.9 mmol/L 05/28/17 Range/Units 05:59 WBC (4.8-10.8) K/uL RBC (3.80-5.20) Mil/uL Hgb (11.0-16.0) g/dL Hct (34.0-47.0) % MCV (81.0-99.0) fL MCH (27.0-31.0) pg MCHC (33.0-37.0) g/dL RDW (11.5-14.5) % Plt Count (130-400) K/uL MPV (7.2-11.7) fL Neut % (Auto) (50.0-75.0) % Lymph % (Auto) (20.0-40.0) % Kimble % (Auto) (0.0-10.0) % Eos % (Auto) (0.0-4.0) % Baso % (Auto) (0.0-2.0) % Neut # (1.8-7.0) K/uL Lymph # (1.0-4.3) K/uL Kimble # (0.0-0.8) K/uL Eos # (0.0-0.7) K/uL Baso # (0.0-0.2) K/uL Neutrophils % (Manual) 91 H (50-75) % Lymphocytes % (Manual) 4 L (20-40) % Monocytes % (Manual) 5 (0-10) % Platelet Estimate Normal (NORMAL) RBC Morphology Normal Puncture Site pCO2 (35-45) mm/Hg pO2 (80-100) mm/Hg HCO3 (21-28) mmol/L ABG pH (7.35-7.45) ABG Total CO2 (22-28) mmol/L ABG O2 Saturation (95-98) % ABG Base Excess (-2.0-3.0) mmol/L ABG Hemoglobin (11.7-17.4) g/dL ABG Carboxyhemoglobin (0.5-1.5) % POC ABG HHb (Measured) (0.0-5.0) % ABG Methemoglobin (0.0-3.0) % Sj Test A-a O2 Difference mm/Hg Respiratory Index Hgb O2 Saturation (95.0-98.0) % Vent Mode Mechanical Rate FiO2 % Tidal Volume PEEP Sodium (132-148) mmol/L Potassium (3.6-5.2) mmol/L Chloride (98-107) mmol/L Carbon Dioxide (22-30) mmol/L Anion Gap (10-20) BUN (7-17) mg/dL Creatinine (0.7-1.2) MG/DL Est GFR ( Amer) Est GFR (Non-Af Amer) Random Glucose (65-105) mg/dL Calcium (8.6-10.4) mg/dl Phosphorus (2.5-4.5) mg/dL Magnesium (1.6-2.3) mg/dL Total Bilirubin (0.2-1.3) mg/dL AST (14-36) U/L ALT (9-52) U/L Alkaline Phosphatase (38-126) U/L Total Protein (6.3-8.3) g/dL Albumin (3.5-5.0) g/dL Globulin (2.2-3.9) gm/dL Albumin/Globulin Ratio (1.0-2.1) Ur Random Sodium mmol/L Ur Random Potassium mmol/L Laboratory Results - last 24 hr 05/28/17 05/28/17 05/28/17 05:59 11:29 13:16 WBC RBC Hgb Hct MCV MCH MCHC RDW Plt Count MPV Neut % (Auto) Lymph % (Auto) Kimble % (Auto) Eos % (Auto) Baso % (Auto) Neut # Lymph # Kimble # Eos # Baso # Neutrophils % (Manual) 91 H Lymphocytes % (Manual) 4 L Monocytes % (Manual) 5 Platelet Estimate Normal RBC Morphology Normal Puncture Site Rb pCO2 50 H pO2 59 L HCO3 33.5 H ABG pH 7.47 H ABG Total CO2 37.9 H ABG O2 Saturation 94.1 L ABG Base Excess 11.1 H ABG Hemoglobin 12.1 ABG Carboxyhemoglobin 1.6 H POC ABG HHb (Measured) 5.8 H ABG Methemoglobin 0.7 Sj Test Na A-a O2 Difference 306.0 Respiratory Index 5.2 Hgb O2 Saturation 91.9 L Vent Mode Prvc Mechanical Rate 14 FiO2 60.0 Tidal Volume 550 PEEP 5 Sodium Potassium Chloride Carbon Dioxide Anion Gap BUN Creatinine Est GFR ( Amer) Est GFR (Non-Af Amer) Random Glucose Calcium Phosphorus Magnesium Total Bilirubin AST ALT Alkaline Phosphatase Total Protein Albumin Globulin Albumin/Globulin Ratio Ur Random Sodium 53 Ur Random Potassium 05/28/17 05/29/17 05/29/17 13:16 05:11 06:16 WBC RBC Hgb Hct MCV MCH MCHC RDW Plt Count MPV Neut % (Auto) Lymph % (Auto) Kimble % (Auto) Eos % (Auto) Baso % (Auto) Neut # Lymph # Kimble # Eos # Baso # Neutrophils % (Manual) Lymphocytes % (Manual) Monocytes % (Manual) Platelet Estimate RBC Morphology Puncture Site Lr pCO2 47 H pO2 73 L HCO3 33.4 H ABG pH 7.49 H ABG Total CO2 37.2 H ABG O2 Saturation 96.7 ABG Base Excess 11.0 H ABG Hemoglobin 12.5 ABG Carboxyhemoglobin 1.7 H POC ABG HHb (Measured) 3.2 ABG Methemoglobin 1.2 Sj Test Pos A-a O2 Difference 296.0 Respiratory Index 4.1 Hgb O2 Saturation 93.8 L Vent Mode Prvc Mechanical Rate 14 FiO2 60.0 Tidal Volume 550 PEEP 5 Sodium 145 Potassium 3.8 Chloride 106 Carbon Dioxide 31 H Anion Gap 12 BUN 48 H Creatinine 0.6 L Est GFR ( Amer) > 60 Est GFR (Non-Af Amer) > 60 Random Glucose 140 H Calcium 8.3 L Phosphorus 4.0 Magnesium 2.4 H Total Bilirubin 0.7 AST 24 ALT 33 Alkaline Phosphatase 53 Total Protein 5.7 L Albumin 3.0 L Globulin 2.7 Albumin/Globulin Ratio 1.1 Ur Random Sodium Ur Random Potassium 79.9 05/29/17 06:18 WBC 14.2 H RBC 4.75 Hgb 12.6 Hct 39.9 MCV 84.0 MCH 26.6 L MCHC 31.6 L RDW 16.7 H Plt Count 257 MPV 8.3 Neut % (Auto) 90.6 H Lymph % (Auto) 4.5 L Kimble % (Auto) 4.6 Eos % (Auto) 0.1 Baso % (Auto) 0.2 Neut # 12.9 H Lymph # 0.6 L Kimble # 0.7 Eos # 0.0 Baso # 0.0 Neutrophils % (Manual) Lymphocytes % (Manual) Monocytes % (Manual) Platelet Estimate RBC Morphology Puncture Site pCO2 pO2 HCO3 ABG pH ABG Total CO2 ABG O2 Saturation ABG Base Excess ABG Hemoglobin ABG Carboxyhemoglobin POC ABG HHb (Measured) ABG Methemoglobin Sj Test A-a O2 Difference Respiratory Index Hgb O2 Saturation Vent Mode Mechanical Rate FiO2 Tidal Volume PEEP Sodium Potassium Chloride Carbon Dioxide Anion Gap BUN Creatinine Est GFR ( Amer) Est GFR (Non-Af Amer) Random Glucose Calcium Phosphorus Magnesium Total Bilirubin AST ALT Alkaline Phosphatase Total Protein Albumin Globulin Albumin/Globulin Ratio Ur Random Sodium Ur Random Potassium Assessment/Plan (1) Respiratory acidosis Current Visit: Yes Status: Acute (2) COPD exacerbation Current Visit: Yes Status: Acute (3) Elevated troponin Current Visit: Yes Status: Acute (4) Atrial fibrillation, new onset Current Visit: Yes Status: Acute (5) Cardiomegaly Current Visit: Yes Status: Acute (6) Elevated WBCs Current Visit: Yes Status: Acute (7) Abnormal RBC indices Current Visit: Yes Status: Acute (8) History of hypertension Current Visit: Yes Status: Acute (9) History of hyperlipidemia Current Visit: Yes Status: Acute (10) Change in mental state Current Visit: Yes Status: Acute (11) History of dementia Current Visit: Yes Status: Acute (12) History of gastroesophageal reflux (GERD) Current Visit: Yes Status: Acute (13) History of glaucoma Current Visit: Yes Status: Acute (14) Prophylactic measure Current Visit: Yes Status: Acute - Assessment and Plan (Free Text) Assessment: 76 year old female with PMHx of COPD, AFib, Asthma, HTN, Cardiomegaly with Diastolic Heart Failure, Dementia presenting with Respiratory acidosis likely 2/ 2 COPD exacerbation Pulmonary: Respiratory acidosis possibly due to atelectisis vs diastolic heart failure; CT chest suspicious of left lower lobe pneumonia - Intubated (since 05/22) and sedated. Decreased Diprivan drip today. - Director [employer] on board: Dr. Camejo - CT chest suspicious of left lower lobe pneumonia - pO2:FiO2 ratio is 122 -> severe hypoxemia -Ventilation settings adjusted today and will continue to monitor ABGs - Repeat CXR today shows right pleural effusion and right basilar opacity unchanged from prior exam. Possible pneumonia. - Singulair 10 mg PO daily - Duoneb 3 ml INH RQ6 - Mucomyst 4 ml INH RQ6 - Solumedrol 40 mg IV Q12 - Chest PT Cardio: Elevated troponin, A-fib, Cardiomegaly with Diastolic Heart Failure, HTN , HLD - Troponins elevated most likely 2/2 to CHF/COPD and hypoxemia - ProBNP elevated most likely 2/2 to COPD/CHF - New onset A-fib: [id number] score is 5. 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 A-fib - 05/22 CXR: marked cardiomegaly. No focal consolidation, no pericardial effusion , no pneumothorax - 05/22 Echo: EF 60-65% with normal LVSF, basal anteroseptal wall hypokinesis. Moderate pulmonary hypertension. Right ventricle moderately dilated. - No further cardiac workup or intervention at this time per Cardiology, Dr. Hart - Diltiazem 30 mg PO Q6 - Lovenox 120mg sc q12 - Enalapril 10 mg PO daily - Crestor 10 mg PO HS - Lasix 20 mg IV Q12 - ASA 81 mg PO daily ID: Elevated WBCs; CT chest suspicious of left lower lobe pneumonia; sputum cx ( +) for gram positive cocci - sputum culture (+) for gram positive cocci - Blood and urine culture from 05/22 negative - Afebrile, possible stress response or transient increased due to steroid use - CT chest w/ evidence of left lower lobe pneumonia - Legionella antigen negative, Mycoplasma pneumoniae IgM negative - f/u Vanco trough - - Zosyn 3.375 mg IV Q8hr : Day 4 of 5 (started 05/26/17 ) - Azithromycin 500 mg IV daily: Day 4 of 7 (started 05/26/17) - Vanco 1 gm IV q12: Day 3 of 7 (started on 05/27/17) Nephro: Elevated BUN:Cr - urine spot electrolytes Na 53, K+ 79.9, Cl < 15 (Low) Integumentry: fungal rash underneath breasts b/l - nystatin topical powder Neuro: Dementia, altered mental status - continue home meds: Donepezil 5 mg PO HS - 05/[address] w/o contrast: no acute findings. GI: GERD , constipation - Protonix 40 mg NG daily - Start Colace 100 mg NG TID Heme: abnormal RBC indices - Hgb stable - patient has not had a bowel movement in a few days, will discontinue Ferrous sulfate Ophtho: Glaucoma - Dorzolamide 10 ml OU TID Prophylaxis: DVT: Lovenox 120mg SC Q12 GI: Protonix 40 mg NG daily Multivitamins <Albert Tellez - Last Filed: 05/29/17 16:37> CCU Objective - Vital Signs / Intake & Output Vital Signs (Last 4 hours): Vital Signs Pulse Resp BP Pulse Ox 05/29/17 14:00 84 30 H 129/49 L 96 05/29/17 13:00 85 25 H 127/55 L 96 Intake and Output (Last 8hrs): Intake & Output 05/29/17 05/29/17 05/29/17 06:59 14:59 22:59 Intake Total 470 470 Output Total 320 400 Balance 150 70 Weight 270 lb 8.115 oz Intake: IV 200 0 Intake, IV Amount 120 95 Right Hand 120 95 Tube Feeding 150 225 Other 150 Output: Urine 320 400 Urethral (Saenz) 320 400 Other: # Bowel Movements 1 - Medications Active Medications: Active Medications Generic Name Dose Route Start Last Admin Trade Name Freq PRN Reason Stop Dose Admin Acetylcysteine 4 ml 05/25/17 09:15 05/29/17 07:19 Acetylcysteine 20% INH 4 ml RQ6 ALISA Administration Albuterol/Ipratropium 3 ml 05/28/17 18:45 05/29/17 13:05 Duoneb 3 Mg/0.5 Mg (3 Ml) Ud INH 3 ml RQ6 ALISA Administration Aspirin 81 mg 05/25/17 10:00 05/29/17 09:17 Aspirin Chewable PO 81 mg DAILY ALISA Administration Diltiazem HCl 30 mg 05/26/17 12:00 05/29/17 12:11 Cardizem PO 30 mg Q6H ALISA Administration Dorzolamide HCl 10 ml 05/22/17 18:00 05/29/17 13:36 Trusopt OU 1 drop TID ALISA Administration Enalapril Maleate 10 mg 05/23/17 10:00 05/29/17 09:17 Vasotec PO 10 mg DAILY ALISA Administration Enoxaparin Sodium 120 mg 05/23/17 22:00 05/29/17 09:16 Lovenox SC 120 mg Q12 ALISA Administration Furosemide 20 mg 05/29/17 18:00 Lasix IVP Q12 ALISA Propofol 1,000 mg in 100 mls @ 3.742 mls/hr 05/22/17 18:47 05/29/17 10:14 Diprivan IV 13.36 mcg/kg/min .Q24H PRN 10 mls/hr Agitation Titration Protocol 5 MCG/KG/MIN Piperacillin Sod/Tazobactam 100 mls @ 200 mls/hr 05/26/17 10:30 05/29/17 10: 11 Sod 3.375 gm/ Sodium Chloride IVPB 200 mls/hr Q8H ALISA Administration Azithromycin 500 mg/ Sodium 250 mls @ 250 mls/hr 05/26/17 11:00 05/29/17 12: 14 Chloride IVPB 250 mls/hr DAILY@1100 ALISA Administration Vancomycin HCl 1 gm/ Sodium 250 mls @ 166.7 mls/hr 05/27/17 09:00 05/29/17 08 :09 Chloride IVPB 166.7 mls/hr Q12H ALISA Administration Methylprednisolone 40 mg 05/25/17 10:00 05/29/17 09:16 Solu-Medrol IV 40 mg Q12 ALISA Administration Montelukast Sodium 10 mg 05/23/17 10:00 05/29/17 09:17 Singulair PO 10 mg DAILY ALISA Administration Multivitamins 1 tab 05/22/17 13:45 05/29/17 09:17 Hexavitamin PO 1 tab DAILY ALISA Administration Nystatin 1 applic 05/27/17 10:30 05/29/17 13:37 Nystop Topical Powder TOP 1 pow TID ALISA Administration Pantoprazole Sodium 40 mg 05/23/17 10:00 05/29/17 09:17 Protonix Susp NG 40 mg DAILY ALISA Administration Rosuvastatin Calcium 10 mg 05/22/17 22:00 05/28/17 22:59 Crestor PO 10 mg HS ALISA Administration - Patient Studies Lab Studies: Lab Studies 05/29/17 05/29/17 05/29/17 Range/Units 11:32 06:18 06:16 WBC 14.2 H (4.8-10.8) K/uL RBC 4.75 (3.80-5.20) Mil/uL Hgb 12.6 (11.0-16.0) g/dL Hct 39.9 (34.0-47.0) % MCV 84.0 (81.0-99.0) fL MCH 26.6 L (27.0-31.0) pg MCHC 31.6 L (33.0-37.0) g/dL RDW 16.7 H (11.5-14.5) % Plt Count 257 (130-400) K/uL MPV 8.3 (7.2-11.7) fL Neut % (Auto) 90.6 H (50.0-75.0) % Lymph % (Auto) 4.5 L (20.0-40.0) % Kimble % (Auto) 4.6 (0.0-10.0) % Eos % (Auto) 0.1 (0.0-4.0) % Baso % (Auto) 0.2 (0.0-2.0) % Neut # 12.9 H (1.8-7.0) K/uL Lymph # 0.6 L (1.0-4.3) K/uL Kimble # 0.7 (0.0-0.8) K/uL Eos # 0.0 (0.0-0.7) K/uL Baso # 0.0 (0.0-0.2) K/uL Neutrophils % (Manual) 90 H (50-75) % Lymphocytes % (Manual) 4 L (20-40) % Monocytes % (Manual) 6 (0-10) % Platelet Estimate Normal (NORMAL) RBC Morphology Normal Puncture Site Lb pCO2 46 H (35-45) mm/Hg pO2 69 L (80-100) mm/Hg HCO3 32.2 H (21-28) mmol/L ABG pH 7.48 H (7.35-7.45) ABG Total CO2 35.7 H (22-28) mmol/L ABG O2 Saturation 95.9 (95-98) % ABG Base Excess 9.5 H (-2.0-3.0) mmol/L ABG Hemoglobin 12.9 (11.7-17.4) g/dL ABG Carboxyhemoglobin 1.4 (0.5-1.5) % POC ABG HHb (Measured) 4.0 (0.0-5.0) % ABG Methemoglobin 1.3 (0.0-3.0) % Sj Test Na A-a O2 Difference 266.0 mm/Hg Respiratory Index 3.9 Hgb O2 Saturation 93.4 L (95.0-98.0) % Vent Mode Cpap Mechanical Rate FiO2 55.0 % Tidal Volume PEEP Pressure Support 10 CPAP 8 Sodium 145 (132-148) mmol/L Potassium 3.8 (3.6-5.2) mmol/L Chloride 106 (98-107) mmol/L Carbon Dioxide 31 H (22-30) mmol/L Anion Gap 12 (10-20) BUN 48 H (7-17) mg/dL Creatinine 0.6 L (0.7-1.2) MG/DL Est GFR ( Amer) > 60 Est GFR (Non-Af Amer) > 60 Random Glucose 140 H (65-105) mg/dL Calcium 8.3 L (8.6-10.4) mg/dl Phosphorus 4.0 (2.5-4.5) mg/dL Magnesium 2.4 H (1.6-2.3) mg/dL Total Bilirubin 0.7 (0.2-1.3) mg/dL AST 24 (14-36) U/L ALT 33 (9-52) U/L Alkaline Phosphatase 53 (38-126) U/L Total Protein 5.7 L (6.3-8.3) g/dL Albumin 3.0 L (3.5-5.0) g/dL Globulin 2.7 (2.2-3.9) gm/dL Albumin/Globulin Ratio 1.1 (1.0-2.1) Urine Chloride (32-290) mmol/L 05/29/17 05/28/17 Range/Units 05:11 13:16 WBC (4.8-10.8) K/uL RBC (3.80-5.20) Mil/uL Hgb (11.0-16.0) g/dL Hct (34.0-47.0) % MCV (81.0-99.0) fL MCH (27.0-31.0) pg MCHC (33.0-37.0) g/dL RDW (11.5-14.5) % Plt Count (130-400) K/uL MPV (7.2-11.7) fL Neut % (Auto) (50.0-75.0) % Lymph % (Auto) (20.0-40.0) % Kimble % (Auto) (0.0-10.0) % Eos % (Auto) (0.0-4.0) % Baso % (Auto) (0.0-2.0) % Neut # (1.8-7.0) K/uL Lymph # (1.0-4.3) K/uL Kimble # (0.0-0.8) K/uL Eos # (0.0-0.7) K/uL Baso # (0.0-0.2) K/uL Neutrophils % (Manual) (50-75) % Lymphocytes % (Manual) (20-40) % Monocytes % (Manual) (0-10) % Platelet Estimate (NORMAL) RBC Morphology Puncture Site Lr pCO2 47 H (35-45) mm/Hg pO2 73 L (80-100) mm/Hg HCO3 33.4 H (21-28) mmol/L ABG pH 7.49 H (7.35-7.45) ABG Total CO2 37.2 H (22-28) mmol/L ABG O2 Saturation 96.7 (95-98) % ABG Base Excess 11.0 H (-2.0-3.0) mmol/L ABG Hemoglobin 12.5 (11.7-17.4) g/dL ABG Carboxyhemoglobin 1.7 H (0.5-1.5) % POC ABG HHb (Measured) 3.2 (0.0-5.0) % ABG Methemoglobin 1.2 (0.0-3.0) % Sj Test Pos A-a O2 Difference 296.0 mm/Hg Respiratory Index 4.1 Hgb O2 Saturation 93.8 L (95.0-98.0) % Vent Mode Prvc Mechanical Rate 14 FiO2 60.0 % Tidal Volume 550 PEEP 5 Pressure Support CPAP Sodium (132-148) mmol/L Potassium (3.6-5.2) mmol/L Chloride (98-107) mmol/L Carbon Dioxide (22-30) mmol/L Anion Gap (10-20) BUN (7-17) mg/dL Creatinine (0.7-1.2) MG/DL Est GFR ( Amer) Est GFR (Non-Af Amer) Random Glucose (65-105) mg/dL Calcium (8.6-10.4) mg/dl Phosphorus (2.5-4.5) mg/dL Magnesium (1.6-2.3) mg/dL Total Bilirubin (0.2-1.3) mg/dL AST (14-36) U/L ALT (9-52) U/L Alkaline Phosphatase (38-126) U/L Total Protein (6.3-8.3) g/dL Albumin (3.5-5.0) g/dL Globulin (2.2-3.9) gm/dL Albumin/Globulin Ratio (1.0-2.1) Urine Chloride <15 L (32-290) mmol/L Laboratory Results - last 24 hr 05/28/17 05/29/17 05/29/17 13:16 05:11 06:16 WBC RBC Hgb Hct MCV MCH MCHC RDW Plt Count MPV Neut % (Auto) Lymph % (Auto) Kimble % (Auto) Eos % (Auto) Baso % (Auto) Neut # Lymph # Kimble # Eos # Baso # Neutrophils % (Manual) Lymphocytes % (Manual) Monocytes % (Manual) Platelet Estimate RBC Morphology Puncture Site Lr pCO2 47 H pO2 73 L HCO3 33.4 H ABG pH 7.49 H ABG Total CO2 37.2 H ABG O2 Saturation 96.7 ABG Base Excess 11.0 H ABG Hemoglobin 12.5 ABG Carboxyhemoglobin 1.7 H POC ABG HHb (Measured) 3.2 ABG Methemoglobin 1.2 Sj Test Pos A-a O2 Difference 296.0 Respiratory Index 4.1 Hgb O2 Saturation 93.8 L Vent Mode Prvc Mechanical Rate 14 FiO2 60.0 Tidal Volume 550 PEEP 5 Pressure Support CPAP Sodium 145 Potassium 3.8 Chloride 106 Carbon Dioxide 31 H Anion Gap 12 BUN 48 H Creatinine 0.6 L Est GFR ( Amer) > 60 Est GFR (Non-Af Amer) > 60 Random Glucose 140 H Calcium 8.3 L Phosphorus 4.0 Magnesium 2.4 H Total Bilirubin 0.7 AST 24 ALT 33 Alkaline Phosphatase 53 Total Protein 5.7 L Albumin 3.0 L Globulin 2.7 Albumin/Globulin Ratio 1.1 Urine Chloride <15 L 05/29/17 05/29/17 06:18 11:32 WBC 14.2 H RBC 4.75 Hgb 12.6 Hct 39.9 MCV 84.0 MCH 26.6 L MCHC 31.6 L RDW 16.7 H Plt Count 257 MPV 8.3 Neut % (Auto) 90.6 H Lymph % (Auto) 4.5 L Kimble % (Auto) 4.6 Eos % (Auto) 0.1 Baso % (Auto) 0.2 Neut # 12.9 H Lymph # 0.6 L Kimble # 0.7 Eos # 0.0 Baso # 0.0 Neutrophils % (Manual) 90 H Lymphocytes % (Manual) 4 L Monocytes % (Manual) 6 Platelet Estimate Normal RBC Morphology Normal Puncture Site Lb pCO2 46 H pO2 69 L HCO3 32.2 H ABG pH 7.48 H ABG Total CO2 35.7 H ABG O2 Saturation 95.9 ABG Base Excess 9.5 H ABG Hemoglobin 12.9 ABG Carboxyhemoglobin 1.4 POC ABG HHb (Measured) 4.0 ABG Methemoglobin 1.3 Sj Test Na A-a O2 Difference 266.0 Respiratory Index 3.9 Hgb O2 Saturation 93.4 L Vent Mode Cpap Mechanical Rate FiO2 55.0 Tidal Volume PEEP Pressure Support 10 CPAP 8 Sodium Potassium Chloride Carbon Dioxide Anion Gap BUN Creatinine Est GFR ( Amer) Est GFR (Non-Af Amer) Random Glucose Calcium Phosphorus Magnesium Total Bilirubin AST ALT Alkaline Phosphatase Total Protein Albumin Globulin Albumin/Globulin Ratio Urine Chloride Attending/Attestation - Attestation I have personally seen and examined this patient.: Yes I have fully participated in the care of the patient.: Yes I have reviewed all pertinent clinical information: Yes Notes (Text): 05/29/17 16:35 I have seen and examined the patient. Medical records, lab studies, and imaging were reviewed by me and a management plan was formulated on multidisciplinary rounds with resident Dr. Srinivasan. I agree with their above documented assessment and plan. The patient is in acute respiratory failure from diastolic CHF, increasing diuresis with lasix IV q12h. f/u Vanco trough. Critical Care Time 35 minutes. Multi-disciplinary rounds were performed with house staff, nursing, speech therapy, respiratory therapy, pharmacy and nutrition with integrated input from the primary team/attending and other consulting services. The documented time is cumulative and includes review of patient data/exams/labs/chart review and examination of the patient on rounds and throughout the day; time is exclusive of any procedures or teaching time. 05/29/17 16:36
[2017-05-29 08:49] LABS: NEUTROPHIL 90 % (50-75); TOTAL CELLS COUNTED 100
[2017-05-29] MEDS: Enoxaparin 120 mg Syringe SC SCH ×2 (09:16→21:11)
[2017-05-29] MEDS: Pantoprazole 40 mg Susp UD NG SCH (09:17)
[2017-05-29] MEDS: Multiple Vitamins Tab PO SCH (09:17)
[2017-05-29] MEDS: Dorzolamide 2% Opht Sol 10ml OU SCH ×3 (09:18→17:50)
--- NOTE | 2017-05-29 09:48 | CP.PCM.PN ---
Subjective - Date & Time of Evaluation Date of Evaluation: 05/29/17 Time of Evaluation: 09:30 - Subjective Subjective: Patient was seen and examined by me I had to review previous notes and speak with the ICU staff as this is my first time seeing patient. Currently the patient remains intubated with PRVC settings at this moment. The patient was awake and was interactive with me on exam. She seemed to indicate that she did not have chest pain or headache when I asked in both Pashto and Austrian however this is not a true review of systems. She also seemed to indicate with her hands that she wanted the ET tube out. She is currently in the ICU with acute respiratory failure secondary to hypercapnic respiratory failure. She had earlier a lot of ABGs showing acidosis as well as very high CO2 levels. Likely this is secondary to a medical history of COPD, CHF, as well as atrial fibrillation. Since then her pH is much improved and her CO2 is much lower She is also on abx for pneumonia as well. Objective - Vital Signs/Intake and Output Vital Signs (last 24 hours): Temp Pulse Resp BP Pulse Ox 98.2 F 75 12 133/75 95 05/29/17 08:00 05/29/17 08:00 05/29/17 08:00 05/29/17 09:17 05/29/17 08:00 Intake and Output: 05/29/17 05/29/17 06:59 18:59 Intake Total 800 60 Output Total 520 75 Balance 280 -15 - Medications Medications: Current Medications Acetylcysteine (Acetylcysteine 20%) 4 ml INH RQ6 [facility] Last Admin: 05/29/17 07:19 Dose: 4 ml Albuterol/Ipratropium (Duoneb 3 Mg/0.5 Mg (3 Ml) Ud) 3 ml INH RQ6 [facility] Last Admin: 05/29/17 07:19 Dose: 3 ml Aspirin (Aspirin Chewable) 81 mg PO DAILY [facility] Last Admin: 05/29/17 09:17 Dose: 81 mg Diltiazem HCl (Cardizem) 30 mg PO Q6H [facility] Last Admin: 05/29/17 06:02 Dose: Not Given Dorzolamide HCl (Trusopt) 10 ml OU TID [facility] Last Admin: 05/29/17 09:18 Dose: 1 drop Enalapril Maleate (Vasotec) 10 mg PO DAILY [facility] Last Admin: 05/29/17 09:17 Dose: 10 mg Enoxaparin Sodium (Lovenox) 120 mg SC Q12 [facility] Last Admin: 05/29/17 09:16 Dose: 120 mg Furosemide (Lasix) 20 mg IVP Q12 [facility] Propofol (Diprivan) 1,000 mg in 100 mls @ 3.742 mls/hr IV .Q24H PRN; Protocol; 5 MCG/KG/MIN PRN Reason: Agitation Last Admin: 05/29/17 00:13 Dose: 20 mcg/kg/min, 14.969 mls/hr Piperacillin Sod/Tazobactam (Sod 3.375 gm/ Sodium Chloride) 100 mls @ 200 mls/ hr IVPB Q8H [facility] Last Admin: 05/29/17 01:39 Dose: 200 mls/hr Azithromycin 500 mg/ Sodium (Chloride) 250 mls @ 250 mls/hr IVPB DAILY@1100 [facility] Last Admin: 05/28/17 12:19 Dose: 250 mls/hr Vancomycin HCl 1 gm/ Sodium (Chloride) 250 mls @ 166.7 mls/hr IVPB Q12H [facility] Last Admin: 05/29/17 08:09 Dose: 166.7 mls/hr Methylprednisolone (Solu-Medrol) 40 mg IV Q12 [facility] Last Admin: 05/29/17 09:16 Dose: 40 mg Montelukast Sodium (Singulair) 10 mg PO DAILY [facility] Last Admin: 05/29/17 09:17 Dose: 10 mg Multivitamins (Hexavitamin) 1 tab PO DAILY [facility] Last Admin: 05/29/17 09:17 Dose: 1 tab Nystatin (Nystop Topical Powder) 1 applic TOP TID [facility] Last Admin: 05/29/17 09:18 Dose: 1 pow Pantoprazole Sodium (Protonix Susp) 40 mg NG DAILY [facility] Last Admin: 05/29/17 09:17 Dose: 40 mg Rosuvastatin Calcium (Crestor) 10 mg PO HS [facility] Last Admin: 05/28/17 22:59 Dose: 10 mg - Labs Labs: 05/29/17 06:18 05/29/17 06:16 - Constitutional Appears: Unkempt, Confused, Chronically Ill - Head Exam Head Exam: NORMAL INSPECTION - Eye Exam Eye Exam: Normal appearance - ENT Exam ENT Exam: Mucous Membranes Moist - Respiratory Exam Respiratory Exam: Decreased Breath Sounds, Rales, Rhonchi - Neurological Exam Neurological Exam: Alert, Altered, Awake. absent: Oriented x3 - Psychiatric Exam Psychiatric exam: Depressed, Flat Affect - Skin Skin Exam: Pallor, Warm Assessment and Plan - Assessment and Plan (Free Text) Assessment: Assessment and Plan (1) Acute respiratory failure with hypoxia and hypercapnia Assessment & Plan: 05/29: Currently patient remains on mechanical ventilator. Review of the blood gases show no longer acidemic or CO2 retaining. Hopefully can be weaned soon. Likey complications from CO2 and CHF as well as pneumonia. (2) Pneumonia Assessment & Plan: 05/29: Remains on IV abx Zosyn and Vancomycin - the WBC is 14. Currently afebrile and also blood and sputum cultures are negative (3) COPD exacerbation Assessment & Plan: 05/29: On nebulizers and twice a day solumedrol (4) Atrial fibrillation, new onset Assessment & Plan: Rate controlled now. Continue Cardizem by mouth for rate control. Patient is on therapeutic anticoagulation with Lovenox. (5) CHF (congestive heart failure) Assessment & Plan: 05/29: Continue following CXRAYs, urine ins and outs. Patient is getting lasix BID and also is on vasotech. (6) History of hyperlipidemia Assessment & Plan: Continue statin. (7) History of hypertension Assessment & Plan: Continue current medication.
--- NOTE | 2017-05-29 10:14 | RAD ---
HISTORY: intubation; hx of copd COMPARISON: 05/28/2017 FINDINGS: LUNGS: Extensive opacity at right lung base, essentially unchanged from prior examination though it is not bordered by the minor fissure as on prior examination. No left-sided opacity appreciated. PLEURA: Small right pleural effusion. No evidence of left pleural effusion. No pneumothorax. CARDIOVASCULAR: Normal heart size. Endotracheal tube and nasogastric tube are unchanged. OSSEOUS STRUCTURES: No significant abnormalities. VISUALIZED UPPER ABDOMEN: Normal. OTHER FINDINGS: None. IMPRESSION: Right pleural effusion and right basilar opacity, possible pneumonia. Lines and tubes unchanged.
--- NOTE | 2017-05-29 10:43 | CP.PCM.PN ---
Subjective - Date & Time of Evaluation Date of Evaluation: 05/29/17 Time of Evaluation: 09:30 - Subjective Subjective: Patient seen and examined Remains intubated on ventilatory support FiO2 60% Improving oxygenation Awake and responsive Afebrile Good urine output tolerating feeding chest x-ray consistent with right pleural effusion Awaiting for CAT scan of chest Objective - Vital Signs/Intake and Output Vital Signs (last 24 hours): Temp Pulse Resp BP Pulse Ox 98.2 F 75 12 133/75 95 05/29/17 08:00 05/29/17 08:00 05/29/17 08:00 05/29/17 09:17 05/29/17 08:00 Intake and Output: 05/29/17 05/29/17 06:59 18:59 Intake Total 900 60 Output Total 520 75 Balance 380 -15 - Medications Medications: Current Medications Acetylcysteine (Acetylcysteine 20%) 4 ml INH RQ6 [facility] Last Admin: 05/29/17 07:19 Dose: 4 ml Albuterol/Ipratropium (Duoneb 3 Mg/0.5 Mg (3 Ml) Ud) 3 ml INH RQ6 [facility] Last Admin: 05/29/17 07:19 Dose: 3 ml Aspirin (Aspirin Chewable) 81 mg PO DAILY [facility] Last Admin: 05/29/17 09:17 Dose: 81 mg Diltiazem HCl (Cardizem) 30 mg PO Q6H [facility] Last Admin: 05/29/17 06:02 Dose: Not Given Dorzolamide HCl (Trusopt) 10 ml OU TID [facility] Last Admin: 05/29/17 09:18 Dose: 1 drop Enalapril Maleate (Vasotec) 10 mg PO DAILY [facility] Last Admin: 05/29/17 09:17 Dose: 10 mg Enoxaparin Sodium (Lovenox) 120 mg SC Q12 [facility] Last Admin: 05/29/17 09:16 Dose: 120 mg Furosemide (Lasix) 20 mg IVP Q12 [facility] Propofol (Diprivan) 1,000 mg in 100 mls @ 3.742 mls/hr IV .Q24H PRN; Protocol; 5 MCG/KG/MIN PRN Reason: Agitation Last Titration: 05/29/17 10:14 Dose: 13.36 mcg/kg/min, 10 mls/hr Piperacillin Sod/Tazobactam (Sod 3.375 gm/ Sodium Chloride) 100 mls @ 200 mls/ hr IVPB Q8H [facility] Last Admin: 05/29/17 10:11 Dose: 200 mls/hr Azithromycin 500 mg/ Sodium (Chloride) 250 mls @ 250 mls/hr IVPB DAILY@1100 [facility] Last Admin: 05/28/17 12:19 Dose: 250 mls/hr Vancomycin HCl 1 gm/ Sodium (Chloride) 250 mls @ 166.7 mls/hr IVPB Q12H [facility] Last Admin: 05/29/17 08:09 Dose: 166.7 mls/hr Methylprednisolone (Solu-Medrol) 40 mg IV Q12 [facility] Last Admin: 05/29/17 09:16 Dose: 40 mg Montelukast Sodium (Singulair) 10 mg PO DAILY [facility] Last Admin: 05/29/17 09:17 Dose: 10 mg Multivitamins (Hexavitamin) 1 tab PO DAILY [facility] Last Admin: 05/29/17 09:17 Dose: 1 tab Nystatin (Nystop Topical Powder) 1 applic TOP TID [facility] Last Admin: 05/29/17 09:18 Dose: 1 pow Pantoprazole Sodium (Protonix Susp) 40 mg NG DAILY [facility] Last Admin: 05/29/17 09:17 Dose: 40 mg Rosuvastatin Calcium (Crestor) 10 mg PO HS [facility] Last Admin: 05/28/17 22:59 Dose: 10 mg - Labs Labs: 05/29/17 06:18 05/29/17 06:16 - Head Exam Head Exam: ATRAUMATIC, NORMOCEPHALIC - Eye Exam Eye Exam: Normal appearance - ENT Exam ENT Exam: Mucous Membranes Moist - Neck Exam Neck Exam: Full ROM, Normal Inspection - Respiratory Exam Respiratory Exam: Decreased Breath Sounds - Cardiovascular Exam Cardiovascular Exam: REGULAR RHYTHM Assessment and Plan (1) Acute respiratory failure with hypoxia and hypercapnia Assessment & Plan: Continue ventilatory support and reduce FiO2 as tolerated Continue weaning Consider CAT scan of the chest and thoracentesisas needed Continue IV antibiotics Continue feeding Status: Acute (2) Atrial fibrillation, new onset Status: Acute (3) COPD exacerbation Status: Acute
[2017-05-29 11:35] LABS: ARTERIAL BLOOD GAS MODE CPAP; ARTERIAL BLOOD HGB O2 SAT 93.4 % (95.0-98.0); CARBOXYHEMOGLOBIN 1.4 % (0.5-1.5); DRAW SITE LB; METHEMOGLOBIN 1.3 % (0.0-3.0)
[2017-05-29] MEDS: Azithromycin 500 MG in Sodium Chloride 0.9% 250 ML IVPB SCH (12:14)
[2017-05-29 14:47] LABS: CHLORIDE URINE <15 mmol/L (32-290)
[2017-05-30] MEDS: Piperacillin/Tazobact 3.375 GM in Sodium Chloride 100 ML IVPB SCH ×3 (02:37→18:51)
[2017-05-30] MEDS: Albuterol-Ipratrop 3 mg / 0.5 (3 ml) UD INH SCH ×4 (02:56→20:00)
[2017-05-30] MEDS: Acetylcysteine 20% Inhal Soln (4ml) INH SCH ×4 (02:56→20:00)
[2017-05-30 05:48] LABS: ABG MECHANICAL RATE 14; ARTERIAL BLOOD GAS MODE PRVC; ARTERIAL BLOOD HGB O2 SAT 94.2 % (95.0-98.0); ATERIAL BLOOD GAS PEEP 7; CARBOXYHEMOGLOBIN 1.7 % (0.5-1.5); DRAW SITE RB; HHB 3.2 % (0.0-5.0); METHEMOGLOBIN 0.8 % (0.0-3.0)
[2017-05-30] MEDS: Propofol 10 mg/ml 1,000 MG/100 ML VIAL IV PRN (05:50)
[2017-05-30 06:32] LABS: BASO # 0.1 K/uL (0.0-0.2); BASO % 0.4 % (0.0-2.0); EOS # 0.1 K/uL (0.0-0.7); EOS % 0.4 % (0.0-4.0); HEMATOCRIT 36.9 % (34.0-47.0); LYMPH # 0.7 K/uL (1.0-4.3); LYMPH % 5.3 % (20.0-40.0); MEAN CELL VOLUME 83.7 fL (81.0-99.0); MEAN CORPUSCULAR HEMOGLOBIN 26.2 pg (27.0-31.0); MEAN CORPUSCULAR HGB CONC 31.3 g/dL (33.0-37.0); MEAN PLATELET VOLUME 8.6 fL (7.2-11.7); MONO % 7.3 % (0.0-10.0); PLATELET COUNT 244 K/uL (130-400); RED CELL DISTRIBUTION WIDTH 16.7 % (11.5-14.5); WHITE BLOOD COUNT 13.9 K/uL (4.8-10.8)
[2017-05-30 06:44] LABS: ALKALINE PHOSPHATASE 46 U/L (38-126); ALT/SGPT 35 U/L (9-52); AST/SGOT 33 U/L (14-36); BILIRUBIN,TOTAL 0.9 mg/dL (0.2-1.3); BLOOD UREA NITROGEN 45 mg/dL (7-17); CALCIUM 7.7 mg/dl (8.6-10.4); CARBON DIOXIDE 31 mmol/L (22-30); CHLORIDE 105 mmol/L (98-107); GFR AFRICAN-AMERICAN > 60; GLUCOSE,RANDOM 131 mg/dL (65-105); MAGNESIUM 2.3 mg/dL (1.6-2.3); PHOSPHOROUS 3.8 mg/dL (2.5-4.5); POTASSIUM 3.9 mmol/L (3.6-5.2); SODIUM 146 mmol/L (132-148); TOTAL PROTEIN 5.2 g/dL (6.3-8.3)
--- NOTE | 2017-05-30 07:53 | CP.PCM.PN ---
Subjective - Date & Time of Evaluation Date of Evaluation: 05/29/17 Time of Evaluation: 15:30 - Subjective Subjective: Patient seen and evaluated Intubated Objective - Vital Signs/Intake and Output Vital Signs (last 24 hours): Temp Pulse Resp BP Pulse Ox 98 F 84 14 87/35 L 96 05/30/17 04:00 05/30/17 07:00 05/30/17 07:00 05/30/17 07:00 05/30/17 07:00 Intake and Output: 05/30/17 05/30/17 06:59 18:59 Intake Total 1105 52.5 Output Total 2160 50 Balance -1055 2.5 - Medications Medications: Current Medications Acetylcysteine (Acetylcysteine 20%) 4 ml INH RQ6 [facility] Last Admin: 05/30/17 07:34 Dose: 4 ml Albuterol/Ipratropium (Duoneb 3 Mg/0.5 Mg (3 Ml) Ud) 3 ml INH RQ6 [facility] Last Admin: 05/30/17 07:34 Dose: 3 ml Aspirin (Aspirin Chewable) 81 mg PO DAILY [facility] Last Admin: 05/29/17 09:17 Dose: 81 mg Diltiazem HCl (Cardizem) 30 mg PO Q6H [facility] Last Admin: 05/30/17 05:20 Dose: 30 mg Dorzolamide HCl (Trusopt) 10 ml OU TID [facility] Last Admin: 05/29/17 17:50 Dose: 1 drop Enalapril Maleate (Vasotec) 10 mg PO DAILY [facility] Last Admin: 05/29/17 09:17 Dose: 10 mg Enoxaparin Sodium (Lovenox) 120 mg SC Q12 [facility] Last Admin: 05/29/17 21:11 Dose: 120 mg Furosemide (Lasix) 20 mg IVP Q12 [facility] Last Admin: 05/29/17 21:09 Dose: 20 mg Propofol (Diprivan) 1,000 mg in 100 mls @ 3.742 mls/hr IV .Q24H PRN; Protocol; 5 MCG/KG/MIN PRN Reason: Agitation Last Admin: 05/30/17 05:50 Dose: 10 mcg/kg/min, 7.484 mls/hr Piperacillin Sod/Tazobactam (Sod 3.375 gm/ Sodium Chloride) 100 mls @ 200 mls/ hr IVPB Q8H [facility] Last Admin: 05/30/17 02:37 Dose: 200 mls/hr Azithromycin 500 mg/ Sodium (Chloride) 250 mls @ 250 mls/hr IVPB DAILY@1100 [facility] Last Admin: 05/29/17 12:14 Dose: 250 mls/hr Vancomycin HCl 1 gm/ Sodium (Chloride) 250 mls @ 166.7 mls/hr IVPB Q12H [facility] Last Admin: 05/29/17 21:10 Dose: 166.7 mls/hr Methylprednisolone (Solu-Medrol) 40 mg IV Q12 [facility] Last Admin: 05/29/17 21:09 Dose: 40 mg Montelukast Sodium (Singulair) 10 mg PO DAILY [facility] Last Admin: 05/29/17 09:17 Dose: 10 mg Multivitamins (Hexavitamin) 1 tab PO DAILY [facility] Last Admin: 05/29/17 09:17 Dose: 1 tab Nystatin (Nystop Topical Powder) 1 applic TOP TID [facility] Last Admin: 05/29/17 17:51 Dose: 1 pow Pantoprazole Sodium (Protonix Susp) 40 mg NG DAILY [facility] Last Admin: 05/29/17 09:17 Dose: 40 mg Rosuvastatin Calcium (Crestor) 10 mg PO HS [facility] Last Admin: 05/29/17 21:09 Dose: 10 mg - Labs Labs: 05/30/17 06:26 05/30/17 06:25 - Head Exam Head Exam: ATRAUMATIC, NORMAL INSPECTION - Eye Exam Eye Exam: EOMI - ENT Exam ENT Exam: Mucous Membranes Moist - Neck Exam Neck Exam: Normal Inspection - Respiratory Exam Respiratory Exam: Decreased Breath Sounds - Cardiovascular Exam Cardiovascular Exam: Irregular Rhythm, +S1, +S2 - GI/Abdominal Exam GI & Abdominal Exam: Soft, Normal Bowel Sounds - Neurological Exam Additional comments: Intubated - Skin Skin Exam: Warm Assessment and Plan - Assessment and Plan (Free Text) Assessment: 1. Respiratory Failure, COPD on Mechanical ventilation 2. Diastolic CHF 3. HTN 4. A Fib Assessment and Plan (1) Acute respiratory failure with hypoxia and hypercapnia Assessment & Plan: 05/29: Currently patient remains on mechanical ventilator. Review of the blood gases show no longer acidemic or CO2 retaining. Hopefully can be weaned soon. Likey complications from CO2 and CHF as well as pneumonia. (2) Pneumonia Assessment & Plan: 05/29: Remains on IV abx Zosyn and Vancomycin - the WBC is 14. Currently afebrile and also blood and sputum cultures are negative (3) COPD exacerbation Assessment & Plan: 05/29: On nebulizers and twice a day solumedrol (4) Atrial fibrillation, new onset Assessment & Plan: Rate controlled now. Continue Cardizem by mouth for rate control. Patient is on therapeutic anticoagulation with Lovenox. (5) CHF (congestive heart failure) Assessment & Plan: 05/29: Continue following CXRAYs, urine ins and outs. Patient is getting lasix BID and also is on vasotech. (6) History of hyperlipidemia Assessment & Plan: Continue statin. (7) History of hypertension Assessment & Plan: Continue current medication.
--- NOTE | 2017-05-30 09:16 | RAD ---
HISTORY: follow up COMPARISON: Comparison is made to 05/29/2017 FINDINGS: LUNGS: Interval worsening of hazy opacity at the left mid and lower lung since the previous exam. Persistent opacities at the right lower lobe. The ET tube is seen at appropriate position. PLEURA: Interval decrease in the size of the right pleural effusion since the previous study. CARDIOVASCULAR: The cardiac silhouette is enlarged. OSSEOUS STRUCTURES: No significant abnormalities. VISUALIZED UPPER ABDOMEN: Normal. OTHER FINDINGS: None. IMPRESSION: Interval slight worsening in the left lung. Interval decrease in the size of the right pleural effusion. Appropriate position of the support devices.
[2017-05-30] MEDS ORDERED: Albumin Human 5% (12.5 gm/250 ml) IV ONE (09:35)
[2017-05-30] MEDS: Multiple Vitamins Tab PO SCH (10:02)
[2017-05-30] MEDS: Dorzolamide 2% Opht Sol 10ml OU SCH ×3 (10:02→18:52)
[2017-05-30] MEDS: Enoxaparin 120 mg Syringe SC SCH ×2 (10:02→21:10)
[2017-05-30] MEDS: Pantoprazole 40 mg Susp UD NG SCH (10:02)
[2017-05-30 10:30] LABS: NEUTROPHIL 88 % (50-75); TOTAL CELLS COUNTED 100
[2017-05-30] MEDS: Azithromycin 500 MG in Sodium Chloride 0.9% 250 ML IVPB SCH (11:15)
--- NOTE | 2017-05-30 12:25 | CP.CCUPN ---
CCU Subjective - Physician Review Events Since Last Encounter (Free Text): 05/30/17 12:23 alert, following commands on the CCU Objective - Vital Signs / Intake & Output Vital Signs (Last 4 hours): Vital Signs Temp Pulse Resp BP Pulse Ox 05/30/17 11:41 98.4 F 05/30/17 11:14 91 H 20 113/34 L 98 05/30/17 11:00 95 H 29 H 97 05/30/17 10:00 85 19 105/32 L 97 05/30/17 09:54 89 18 97/34 L 97 05/30/17 09:25 84/29 L 05/30/17 09:22 83 14 84/29 L 97 05/30/17 09:00 83 14 87/30 L 97 Intake and Output (Last 8hrs): Intake & Output 05/29/17 05/30/17 05/30/17 22:59 06:59 14:59 Intake Total 574 981 5489.3 Output Total 1620 940 160 Balance -1020 -150 871.3 Weight 268 lb 9.6 oz Intake: IV 100 20 Intake, IV Amount 180 430 686.3 Right Forearm 100 350 600 Right Hand 80 80 86.3 Tube Feeding 320 360 225 Other 100 Output: Urine 1620 940 160 Urethral (Hunt) 1620 940 160 Other: # Bowel Movements 1 - Physical Exam Head: Positive for: Atraumatic, Normocephalic Pupils: Positive for: PERRL Extroacular Muscles: Positive for: EOMI Mouth: Positive for: Other (intubated; Suction from ET tube has whitish secretions) Respiratory/Chest: Positive for: Wheezes Cardiovascular: Positive for: Regular Rate and Rhythm, Normal S1, S2 Abdomen: Positive for: Normal Bowel Sounds. Negative for: Tenderness Neurological: Positive for: Other (follows commands) Psychiatric: Positive for: Alert - Medications Active Medications: Active Medications Generic Name Dose Route Start Last Admin Trade Name Freq PRN Reason Stop Dose Admin Acetylcysteine 4 ml 05/25/17 09:15 05/30/17 07:34 Acetylcysteine 20% INH 4 ml RQ6 ALISA Administration Albuterol/Ipratropium 3 ml 05/28/17 18:45 05/30/17 07:34 Duoneb 3 Mg/0.5 Mg (3 Ml) Ud INH 3 ml RQ6 ALISA Administration Aspirin 81 mg 05/25/17 10:00 05/30/17 10:02 Aspirin Chewable PO 81 mg DAILY ALISA Administration Diltiazem HCl 30 mg 05/26/17 12:00 05/30/17 05:20 Cardizem PO 30 mg Q6H ALISA Administration Dorzolamide HCl 10 ml 05/22/17 18:00 05/30/17 10:02 Trusopt OU 1 drop TID ALISA Administration Enalapril Maleate 10 mg 05/23/17 10:00 05/30/17 09:25 Vasotec PO Not Given DAILY ALISA Enoxaparin Sodium 120 mg 05/23/17 22:00 05/30/17 10:02 Lovenox SC 120 mg Q12 ALISA Administration Furosemide 20 mg 05/29/17 18:00 05/30/17 09:25 Lasix IVP Not Given Q12 ALISA Propofol 1,000 mg in 100 mls @ 3.742 mls/hr 05/22/17 18:47 05/30/17 09:00 Diprivan IV 0 mcg/kg/min .Q24H PRN 0 mls/hr Agitation Titration Protocol 5 MCG/KG/MIN Piperacillin Sod/Tazobactam 100 mls @ 200 mls/hr 05/26/17 10:30 05/30/17 10: 32 Sod 3.375 gm/ Sodium Chloride IVPB 200 mls/hr Q8H ALISA Administration Azithromycin 500 mg/ Sodium 250 mls @ 250 mls/hr 05/26/17 11:00 05/30/17 11: 15 Chloride IVPB 250 mls/hr DAILY@1100 ALISA Administration Vancomycin HCl 1 gm/ Sodium 250 mls @ 166.7 mls/hr 05/27/17 09:00 05/30/17 08 :03 Chloride IVPB 166.7 mls/hr Q12H ALISA Administration Montelukast Sodium 10 mg 05/23/17 10:00 05/30/17 10:02 Singulair PO 10 mg DAILY ALISA Administration Multivitamins 1 tab 05/22/17 13:45 05/30/17 10:02 Hexavitamin PO 1 tab DAILY ALISA Administration Nystatin 1 applic 05/27/17 10:30 05/30/17 10:03 Nystop Topical Powder TOP 1 pow TID ALISA Administration Pantoprazole Sodium 40 mg 05/23/17 10:00 05/30/17 10:02 Protonix Susp NG 40 mg DAILY ALISA Administration Rosuvastatin Calcium 10 mg 05/22/17 22:00 05/29/17 21:09 Crestor PO 10 mg HS ALISA Administration - Patient Studies Lab Studies: Lab Studies 05/30/17 05/30/17 05/30/17 Range/Units 06:26 06:25 04:59 WBC 13.9 H (4.8-10.8) K/uL RBC 4.41 (3.80-5.20) Mil/uL Hgb 11.6 (11.0-16.0) g/dL Hct 36.9 (34.0-47.0) % MCV 83.7 (81.0-99.0) fL MCH 26.2 L (27.0-31.0) pg MCHC 31.3 L (33.0-37.0) g/dL RDW 16.7 H (11.5-14.5) % Plt Count 244 (130-400) K/uL MPV 8.6 (7.2-11.7) fL Neut % (Auto) 86.6 H (50.0-75.0) % Lymph % (Auto) 5.3 L (20.0-40.0) % [place] % (Auto) 7.3 (0.0-10.0) % Eos % (Auto) 0.4 (0.0-4.0) % Baso % (Auto) 0.4 (0.0-2.0) % Neut # 12.0 H (1.8-7.0) K/uL Lymph # 0.7 L (1.0-4.3) K/uL [place] # 1.0 H (0.0-0.8) K/uL Eos # 0.1 (0.0-0.7) K/uL Baso # 0.1 (0.0-0.2) K/uL Neutrophils % (Manual) 88 H (50-75) % Lymphocytes % (Manual) 4 L (20-40) % Monocytes % (Manual) 8 (0-10) % Platelet Estimate Normal (NORMAL) Hypochromasia (manual) Slight Poikilocytosis (manual Slight Anisocytosis (manual) Slight Target Cells Slight Tear Drop Cells Slight Ovalocytes Slight Puncture Site Rb pCO2 46 H (35-45) mm/Hg pO2 67 L (80-100) mm/Hg HCO3 34.4 H (21-28) mmol/L ABG pH 7.51 H (7.35-7.45) ABG Total CO2 38.1 H (22-28) mmol/L ABG O2 Saturation 96.7 (95-98) % ABG Base Excess 12.2 H (-2.0-3.0) mmol/L ABG Hemoglobin 11.7 (11.7-17.4) g/dL ABG Carboxyhemoglobin 1.7 H (0.5-1.5) % POC ABG HHb (Measured) 3.2 (0.0-5.0) % ABG Methemoglobin 0.8 (0.0-3.0) % Sj Test Na A-a O2 Difference 303.0 mm/Hg Respiratory Index 4.5 Hgb O2 Saturation 94.2 L (95.0-98.0) % Vent Mode Prvc Mechanical Rate 14 FiO2 60.0 % Tidal Volume 550 PEEP 7 Sodium 146 (132-148) mmol/L Potassium 3.9 (3.6-5.2) mmol/L Chloride 105 (98-107) mmol/L Carbon Dioxide 31 H (22-30) mmol/L Anion Gap 14 (10-20) BUN 45 H (7-17) mg/dL Creatinine 0.5 L (0.7-1.2) MG/DL Est GFR ( Amer) > 60 Est GFR (Non-Af Amer) > 60 Random Glucose 131 H (65-105) mg/dL Calcium 7.7 L (8.6-10.4) mg/dl Phosphorus 3.8 (2.5-4.5) mg/dL Magnesium 2.3 (1.6-2.3) mg/dL Total Bilirubin 0.9 (0.2-1.3) mg/dL AST 33 (14-36) U/L ALT 35 (9-52) U/L Alkaline Phosphatase 46 (38-126) U/L Total Protein 5.2 L (6.3-8.3) g/dL Albumin 2.7 L (3.5-5.0) g/dL Globulin 2.6 (2.2-3.9) gm/dL Albumin/Globulin Ratio 1.0 (1.0-2.1) Urine Chloride (32-290) mmol/L Vancomycin Trough (5.0-10.0) ug/mL 05/29/17 05/28/17 Range/Units 19:47 13:16 WBC (4.8-10.8) K/uL RBC (3.80-5.20) Mil/uL Hgb (11.0-16.0) g/dL Hct (34.0-47.0) % MCV (81.0-99.0) fL MCH (27.0-31.0) pg MCHC (33.0-37.0) g/dL RDW (11.5-14.5) % Plt Count (130-400) K/uL MPV (7.2-11.7) fL Neut % (Auto) (50.0-75.0) % Lymph % (Auto) (20.0-40.0) % [place] % (Auto) (0.0-10.0) % Eos % (Auto) (0.0-4.0) % Baso % (Auto) (0.0-2.0) % Neut # (1.8-7.0) K/uL Lymph # (1.0-4.3) K/uL [place] # (0.0-0.8) K/uL Eos # (0.0-0.7) K/uL Baso # (0.0-0.2) K/uL Neutrophils % (Manual) (50-75) % Lymphocytes % (Manual) (20-40) % Monocytes % (Manual) (0-10) % Platelet Estimate (NORMAL) Hypochromasia (manual) Poikilocytosis (manual Anisocytosis (manual) Target Cells Tear Drop Cells Ovalocytes Puncture Site pCO2 (35-45) mm/Hg pO2 (80-100) mm/Hg HCO3 (21-28) mmol/L ABG pH (7.35-7.45) ABG Total CO2 (22-28) mmol/L ABG O2 Saturation (95-98) % ABG Base Excess (-2.0-3.0) mmol/L ABG Hemoglobin (11.7-17.4) g/dL ABG Carboxyhemoglobin (0.5-1.5) % POC ABG HHb (Measured) (0.0-5.0) % ABG Methemoglobin (0.0-3.0) % Sj Test A-a O2 Difference mm/Hg Respiratory Index Hgb O2 Saturation (95.0-98.0) % Vent Mode Mechanical Rate FiO2 % Tidal Volume PEEP Sodium (132-148) mmol/L Potassium (3.6-5.2) mmol/L Chloride (98-107) mmol/L Carbon Dioxide (22-30) mmol/L Anion Gap (10-20) BUN (7-17) mg/dL Creatinine (0.7-1.2) MG/DL Est GFR ( Amer) Est GFR (Non-Af Amer) Random Glucose (65-105) mg/dL Calcium (8.6-10.4) mg/dl Phosphorus (2.5-4.5) mg/dL Magnesium (1.6-2.3) mg/dL Total Bilirubin (0.2-1.3) mg/dL AST (14-36) U/L ALT (9-52) U/L Alkaline Phosphatase (38-126) U/L Total Protein (6.3-8.3) g/dL Albumin (3.5-5.0) g/dL Globulin (2.2-3.9) gm/dL Albumin/Globulin Ratio (1.0-2.1) Urine Chloride <15 L (32-290) mmol/L Vancomycin Trough 14.1 H (5.0-10.0) ug/mL Laboratory Results - last 24 hr 05/28/17 05/29/17 05/30/17 13:16 19:47 04:59 WBC RBC Hgb Hct MCV MCH MCHC RDW Plt Count MPV Neut % (Auto) Lymph % (Auto) [place] % (Auto) Eos % (Auto) Baso % (Auto) Neut # Lymph # [place] # Eos # Baso # Neutrophils % (Manual) Lymphocytes % (Manual) Monocytes % (Manual) Platelet Estimate Hypochromasia (manual) Poikilocytosis (manual Anisocytosis (manual) Target Cells Tear Drop Cells Ovalocytes Puncture Site Rb pCO2 46 H pO2 67 L HCO3 34.4 H ABG pH 7.51 H ABG Total CO2 38.1 H ABG O2 Saturation 96.7 ABG Base Excess 12.2 H ABG Hemoglobin 11.7 ABG Carboxyhemoglobin 1.7 H POC ABG HHb (Measured) 3.2 ABG Methemoglobin 0.8 Sj Test Na A-a O2 Difference 303.0 Respiratory Index 4.5 Hgb O2 Saturation 94.2 L Vent Mode Prvc Mechanical Rate 14 FiO2 60.0 Tidal Volume 550 PEEP 7 Sodium Potassium Chloride Carbon Dioxide Anion Gap BUN Creatinine Est GFR ( Amer) Est GFR (Non-Af Amer) Random Glucose Calcium Phosphorus Magnesium Total Bilirubin AST ALT Alkaline Phosphatase Total Protein Albumin Globulin Albumin/Globulin Ratio Urine Chloride <15 L Vancomycin Trough 14.1 H 05/30/17 05/30/17 06:25 06:26 WBC 13.9 H RBC 4.41 Hgb 11.6 Hct 36.9 MCV 83.7 MCH 26.2 L MCHC 31.3 L RDW 16.7 H Plt Count 244 MPV 8.6 Neut % (Auto) 86.6 H Lymph % (Auto) 5.3 L [place] % (Auto) 7.3 Eos % (Auto) 0.4 Baso % (Auto) 0.4 Neut # 12.0 H Lymph # 0.7 L [place] # 1.0 H Eos # 0.1 Baso # 0.1 Neutrophils % (Manual) 88 H Lymphocytes % (Manual) 4 L Monocytes % (Manual) 8 Platelet Estimate Normal Hypochromasia (manual) Slight Poikilocytosis (manual Slight Anisocytosis (manual) Slight Target Cells Slight Tear Drop Cells Slight Ovalocytes Slight Puncture Site pCO2 pO2 HCO3 ABG pH ABG Total CO2 ABG O2 Saturation ABG Base Excess ABG Hemoglobin ABG Carboxyhemoglobin POC ABG HHb (Measured) ABG Methemoglobin Sj Test A-a O2 Difference Respiratory Index Hgb O2 Saturation Vent Mode Mechanical Rate FiO2 Tidal Volume PEEP Sodium 146 Potassium 3.9 Chloride 105 Carbon Dioxide 31 H Anion Gap 14 BUN 45 H Creatinine 0.5 L Est GFR ( Amer) > 60 Est GFR (Non-Af Amer) > 60 Random Glucose 131 H Calcium 7.7 L Phosphorus 3.8 Magnesium 2.3 Total Bilirubin 0.9 AST 33 ALT 35 Alkaline Phosphatase 46 Total Protein 5.2 L Albumin 2.7 L Globulin 2.6 Albumin/Globulin Ratio 1.0 Urine Chloride Vancomycin Trough Review of Systems - Review of Systems Systems not reviewed;Unavailable: Intubated Assessment/Plan (1) Acute respiratory failure with hypoxia and hypercapnia Assessment and plan: 76 year old female with PMHx of COPD, AFib, Asthma, HTN, Cardiomegaly with Diastolic Heart Failure, Dementia presenting with acute respiratory failure likely secondary COPD exacerbation, resulting in intubation (05/22). Neuro: Alert and following commands, daily sedation vacation off propofol drip. Pulm: Acute respiratory failure secondary to pulmonary edema, on vent. Mucomyst , DuoNeb's, and diuresis. CV: Mildly hypotensive, will monitor, hold enalapril. Acute on chronic decompensated diastolic heart failure. A. fib rate controlled with Cardizem by mouth. Hem: A. fib on full dose anticoagulation with Lovenox. Renal: Albumin drip Endo: No acute issues GI: Pulmocare at 45 ID: Empiric therapy for possible underlying pneumonia, continue Zosyn and vancomycin and azithromycin. DVT proph - Lovenox full dose GI proph - Protonix hunt for strict I/O's during acute illness Code status - full code Critical Care Time spent 35 minutes Multi-disciplinary rounds were performed with house staff, nursing, speech therapy, respiratory therapy, pharmacy and nutrition with integrated input from the primary team/attending and other consulting services. The documented time is cumulative and includes review of patient data/exams/labs/chart review and examination of the patient on rounds and throughout the day; time is exclusive of any procedures or teaching time. Current Visit: Yes Status: Acute
--- NOTE | 2017-05-30 12:49 | CP.PCM.PN ---
Subjective - Date & Time of Evaluation Date of Evaluation: 05/30/17 Time of Evaluation: 12:30 - Subjective Subjective: Patient was seen and examined by me, She currently is undergoing a weaning trial at this moment. She was off of the propofol. She was very awake and gesturing with her hands that were covered with the mittens. As mentioned previously she is currently in the ICU with acute respiratory failure secondary to hypercapnic respiratory failure. ABGs look much better now. Hopefully can be weaned off ventilator. She previously had a lot of ABGs showing acidosis as well as very high CO2 levels. Likely this is secondary to a medical history of COPD, CHF, as well as atrial fibrillation. Since then her pH is much improved and her CO2 is much lower Objective - Vital Signs/Intake and Output Vital Signs (last 24 hours): Temp Pulse Resp BP Pulse Ox 98.4 F 91 H 20 113/34 L 98 05/30/17 11:41 05/30/17 11:14 05/30/17 11:14 05/30/17 11:14 05/30/17 11:14 Intake and Output: 05/30/17 05/30/17 06:59 18:59 Intake Total 1105 1031.3 Output Total 2160 160 Balance -1055 871.3 - Medications Medications: Current Medications Acetylcysteine (Acetylcysteine 20%) 4 ml INH RQ6 ALISA Last Admin: 05/30/17 07:34 Dose: 4 ml Albuterol/Ipratropium (Duoneb 3 Mg/0.5 Mg (3 Ml) Ud) 3 ml INH RQ6 ALISA Last Admin: 05/30/17 07:34 Dose: 3 ml Aspirin (Aspirin Chewable) 81 mg PO DAILY ALISA Last Admin: 05/30/17 10:02 Dose: 81 mg Diltiazem HCl (Cardizem) 30 mg PO Q6H ALISA Last Admin: 05/30/17 05:20 Dose: 30 mg Dorzolamide HCl (Trusopt) 10 ml OU TID ALISA Last Admin: 05/30/17 10:02 Dose: 1 drop Enalapril Maleate (Vasotec) 10 mg PO DAILY [facility] Last Admin: 05/30/17 09:25 Dose: Not Given Enoxaparin Sodium (Lovenox) 120 mg SC Q12 [facility] Last Admin: 05/30/17 10:02 Dose: 120 mg Furosemide (Lasix) 20 mg IVP Q12 [facility] Last Admin: 05/30/17 09:25 Dose: Not Given Propofol (Diprivan) 1,000 mg in 100 mls @ 3.742 mls/hr IV .Q24H PRN; Protocol; 5 MCG/KG/MIN PRN Reason: Agitation Last Titration: 05/30/17 09:00 Dose: 0 mcg/kg/min, 0 mls/hr Piperacillin Sod/Tazobactam (Sod 3.375 gm/ Sodium Chloride) 100 mls @ 200 mls/ hr IVPB Q8H [facility] Last Admin: 05/30/17 10:32 Dose: 200 mls/hr Azithromycin 500 mg/ Sodium (Chloride) 250 mls @ 250 mls/hr IVPB DAILY@1100 [facility] Last Admin: 05/30/17 11:15 Dose: 250 mls/hr Vancomycin HCl 1 gm/ Sodium (Chloride) 250 mls @ 166.7 mls/hr IVPB Q12H [facility] Last Admin: 05/30/17 08:03 Dose: 166.7 mls/hr Montelukast Sodium (Singulair) 10 mg PO DAILY [facility] Last Admin: 05/30/17 10:02 Dose: 10 mg Multivitamins (Hexavitamin) 1 tab PO DAILY [facility] Last Admin: 05/30/17 10:02 Dose: 1 tab Nystatin (Nystop Topical Powder) 1 applic TOP TID [facility] Last Admin: 05/30/17 10:03 Dose: 1 pow Pantoprazole Sodium (Protonix Susp) 40 mg NG DAILY [facility] Last Admin: 05/30/17 10:02 Dose: 40 mg Rosuvastatin Calcium (Crestor) 10 mg PO [facility] Last Admin: 05/29/17 21:09 Dose: 10 mg - Labs Labs: 05/30/17 06:26 05/30/17 06:25 - Constitutional Appears: No Acute Distress, Unkempt, Agitated, Chronically Ill - Head Exam Head Exam: NORMAL INSPECTION - Eye Exam Eye Exam: EOMI - ENT Exam ENT Exam: Mucous Membranes Moist - Respiratory Exam Respiratory Exam: Decreased Breath Sounds Additional comments: Currently intubated, on weaning trial - GI/Abdominal Exam GI & Abdominal Exam: Soft, Normal Bowel Sounds - Neurological Exam Neurological Exam: Alert Neuro motor strength exam: Left Upper Extremity: 4, Right Upper Extremity: 4 - Psychiatric Exam Psychiatric exam: Depressed, Flat Affect - Skin Skin Exam: Normal Color, Warm Assessment and Plan - Assessment and Plan (Free Text) Assessment: Assessment and Plan (1) Acute respiratory failure with hypoxia and hypercapnia 05/30: Currently on weaning trial. 05/29: Currently patient remains on mechanical ventilator. Review of the blood gases show no longer acidemic or CO2 retaining. Hopefully can be weaned soon. Likey complications from CO2 and CHF as well as pneumonia. (2) Pneumonia - questionable area on the right lower lobe seen on CT done on 05/30: WBC is only decreased slightly. There is still large left shift. Afebrile. IV Zosyn started on 05/26 and IV Vanco started 05/27. 05/29: Remains on IV abx Zosyn and Vancomycin - the WBC is 14. Currently afebrile and also blood and sputum cultures are negative (3) COPD exacerbation 05/29: On nebulizers and twice a day solumedrol (4) Atrial fibrillation, new onset 05/30: HR has been in the 90s atrial fibrillation. Rate controlled now. Continue Cardizem by mouth for rate control. Patient is on therapeutic anticoagulation with Lovenox as there is a high CHADs score (5) CHF (congestive heart failure) Assessment & Plan: 05/29: Continue following CXRAYs, urine ins and outs. Patient is getting lasix BID and also is on vasotech. (6) History of hyperlipidemia Assessment & Plan: Continue statin. (7) History of hypertension Assessment & Plan: Continue current medication. Attending/Attestation - Attestation I have personally seen and examined this patient.: Yes I have fully participated in the care of the patient.: Yes I have reviewed all pertinent clinical information, including history, physical exam and plan: Yes
--- NOTE | 2017-05-30 18:34 | CP.PCM.PN ---
Subjective - Date & Time of Evaluation Date of Evaluation: 05/30/17 Time of Evaluation: 15:15 - Subjective Subjective: patient seen and examined Much more awake and responsive Tolerating CPAP since morning FiO2 reduced to 50% Good urine output Afebrile Objective - Vital Signs/Intake and Output Vital Signs (last 24 hours): Temp Pulse Resp BP Pulse Ox 99.4 F 104 H 25 H 98/34 L 99 05/30/17 16:00 05/30/17 17:02 05/30/17 17:02 05/30/17 17:02 05/30/17 17:02 Intake and Output: 05/30/17 05/30/17 06:59 18:59 Intake Total 1105 1551.3 Output Total 2160 350 Balance -1055 1201.3 - Medications Medications: Current Medications Acetylcysteine (Acetylcysteine 20%) 4 ml INH RQ6 ALISA Last Admin: 05/30/17 13:22 Dose: Not Given Albuterol/Ipratropium (Duoneb 3 Mg/0.5 Mg (3 Ml) Ud) 3 ml INH RQ6 ALISA Last Admin: 05/30/17 13:22 Dose: Not Given Aspirin (Aspirin Chewable) 81 mg PO DAILY ALISA Last Admin: 05/30/17 10:02 Dose: 81 mg Diltiazem HCl (Cardizem) 30 mg PO Q6H ALISA Last Admin: 05/30/17 12:00 Dose: Not Given Dorzolamide HCl (Trusopt) 10 ml OU TID ALISA Last Admin: 05/30/17 13:40 Dose: 1 drop Enalapril Maleate (Vasotec) 10 mg PO DAILY [facility] Last Admin: 05/30/17 09:25 Dose: Not Given Enoxaparin Sodium (Lovenox) 120 mg SC Q12 ALISA Last Admin: 05/30/17 10:02 Dose: 120 mg Furosemide (Lasix) 20 mg IVP Q12 ALISA Last Admin: 05/30/17 09:25 Dose: Not Given Propofol (Diprivan) 1,000 mg in 100 mls @ 3.742 mls/hr IV .Q24H PRN; Protocol; 5 MCG/KG/MIN PRN Reason: Agitation Last Titration: 05/30/17 09:00 Dose: 0 mcg/kg/min, 0 mls/hr Piperacillin Sod/Tazobactam (Sod 3.375 gm/ Sodium Chloride) 100 mls @ 200 mls/ hr IVPB Q8H [facility] Last Admin: 05/30/17 10:32 Dose: 200 mls/hr Azithromycin 500 mg/ Sodium (Chloride) 250 mls @ 250 mls/hr IVPB DAILY@1100 [facility] Last Admin: 05/30/17 11:15 Dose: 250 mls/hr Vancomycin HCl 1 gm/ Sodium (Chloride) 250 mls @ 166.7 mls/hr IVPB Q12H [facility] Last Admin: 05/30/17 08:03 Dose: 166.7 mls/hr Montelukast Sodium (Singulair) 10 mg PO DAILY [facility] Last Admin: 05/30/17 10:02 Dose: 10 mg Multivitamins (Hexavitamin) 1 tab PO DAILY [facility] Last Admin: 05/30/17 10:02 Dose: 1 tab Nystatin (Nystop Topical Powder) 1 applic TOP TID [facility] Last Admin: 05/30/17 13:40 Dose: 1 pow Pantoprazole Sodium (Protonix Susp) 40 mg NG DAILY [facility] Last Admin: 05/30/17 10:02 Dose: 40 mg Rosuvastatin Calcium (Crestor) 10 mg PO HS [facility] Last Admin: 05/29/17 21:09 Dose: 10 mg - Labs Labs: 05/30/17 06:26 05/30/17 06:25 - Head Exam Head Exam: ATRAUMATIC, NORMOCEPHALIC - ENT Exam ENT Exam: Mucous Membranes Moist - Neck Exam Neck Exam: Normal Inspection - Respiratory Exam Respiratory Exam: Decreased Breath Sounds - Cardiovascular Exam Cardiovascular Exam: REGULAR RHYTHM - GI/Abdominal Exam GI & Abdominal Exam: Soft, Normal Bowel Sounds - Extremities Exam Extremities Exam: Pedal Edema Assessment and Plan (1) Acute respiratory failure with hypoxia and hypercapnia Assessment & Plan: continue weaning as tolerated Reduce FiO2 Continue antibiotics and Lasix Followup chest x-ray and ABG Status: Acute (2) Atrial fibrillation, new onset Status: Acute (3) COPD exacerbation Status: Acute
--- NOTE | 2017-05-30 23:50 | CP.PCM.PN ---
Subjective - Date & Time of Evaluation Date of Evaluation: 05/30/17 Time of Evaluation: 15:00 - Subjective Subjective: Patient seen and evaluated Family at bedside Intubated but follows commands Not in distress Physical examination - Head Exam Head Exam: ATRAUMATIC, NORMAL INSPECTION - Eye Exam Eye Exam: PERRL - ENT Exam ENT Exam: Mucous Membranes Moist - Neck Exam Neck Exam: Normal Inspection - Respiratory Exam Respiratory Exam: Decreased Breath Sounds - Cardiovascular Exam Cardiovascular Exam: Irregular Rhythm, +S1, +S2 - GI/Abdominal Exam GI & Abdominal Exam: Normal Bowel Sounds - Skin Skin Exam: Warm Objective - Vital Signs/Intake and Output Vital Signs (last 24 hours): Temp Pulse Resp BP Pulse Ox 97.5 F L 110 H 19 91/28 L 96 05/30/17 20:00 05/30/17 23:00 05/30/17 23:00 05/30/17 23:00 05/30/17 23:00 Intake and Output: 05/30/17 05/31/17 18:59 06:59 Intake Total 1621.3 600 Output Total 380 285 Balance 1241.3 315 - Medications Medications: Current Medications Acetylcysteine (Acetylcysteine 20%) 4 ml INH RQ6 [facility] Last Admin: 05/30/17 20:00 Dose: 4 ml Albuterol/Ipratropium (Duoneb 3 Mg/0.5 Mg (3 Ml) Ud) 3 ml INH RQ6 [facility] Last Admin: 05/30/17 20:00 Dose: 3 ml Aspirin (Aspirin Chewable) 81 mg PO DAILY [facility] Last Admin: 05/30/17 10:02 Dose: 81 mg Diltiazem HCl (Cardizem) 30 mg PO Q6H [facility] Last Admin: 05/30/17 23:09 Dose: Not Given Dorzolamide HCl (Trusopt) 10 ml OU TID [facility] Last Admin: 05/30/17 18:52 Dose: 1 drop Enalapril Maleate (Vasotec) 10 mg PO DAILY [facility] Last Admin: 05/30/17 09:25 Dose: Not Given Enoxaparin Sodium (Lovenox) 120 mg SC Q12 [facility] Last Admin: 05/30/17 21:10 Dose: 120 mg Furosemide (Lasix) 20 mg IVP Q12 [facility] Last Admin: 05/30/17 21:10 Dose: 20 mg Propofol (Diprivan) 1,000 mg in 100 mls @ 3.742 mls/hr IV .Q24H PRN; Protocol; 5 MCG/KG/MIN PRN Reason: Agitation Last Titration: 05/30/17 09:00 Dose: 0 mcg/kg/min, 0 mls/hr Piperacillin Sod/Tazobactam (Sod 3.375 gm/ Sodium Chloride) 100 mls @ 200 mls/ hr IVPB Q8H [facility] Last Admin: 05/30/17 18:51 Dose: 200 mls/hr Azithromycin 500 mg/ Sodium (Chloride) 250 mls @ 250 mls/hr IVPB DAILY@1100 [facility] Last Admin: 05/30/17 11:15 Dose: 250 mls/hr Vancomycin HCl 1 gm/ Sodium (Chloride) 250 mls @ 166.7 mls/hr IVPB Q12H [facility] Last Admin: 05/30/17 21:09 Dose: 166.7 mls/hr Montelukast Sodium (Singulair) 10 mg PO DAILY [facility] Last Admin: 05/30/17 10:02 Dose: 10 mg Multivitamins (Hexavitamin) 1 tab PO DAILY [facility] Last Admin: 05/30/17 10:02 Dose: 1 tab Nystatin (Nystop Topical Powder) 1 applic TOP TID [facility] Last Admin: 05/30/17 18:52 Dose: 1 pow Pantoprazole Sodium (Protonix Susp) 40 mg NG DAILY [facility] Last Admin: 05/30/17 10:02 Dose: 40 mg Rosuvastatin Calcium (Crestor) 10 mg PO HS [facility] Last Admin: 05/30/17 21:10 Dose: 10 mg - Labs Labs: 05/30/17 06:26 05/30/17 06:25 Assessment and Plan - Assessment and Plan (Free Text) Assessment: (1) Atrial fibrillation, new onset Assessment & Plan: Rate controlled now. Continue Cardizem by mouth for rate control. (2) CHF (congestive heart failure) Assessment & Plan: IV Lasix (3) History of hyperlipidemia Assessment & Plan: Continue statin. (4) History of hypertension Assessment & Plan: Continue current medication. (5) Acute respiratory failure with hypoxia and hypercapnia On Mechanical ventilation (6) Pneumonia Assessment & Plan: ID on case on antibiotics (7) COPD exacerbation Assessment & Plan: On nebulizers
[2017-05-31] MEDS: Piperacillin/Tazobact 3.375 GM in Sodium Chloride 100 ML IVPB SCH (01:30)
[2017-05-31] MEDS: Albuterol-Ipratrop 3 mg / 0.5 (3 ml) UD INH SCH ×4 (02:40→20:02)
[2017-05-31] MEDS: Acetylcysteine 20% Inhal Soln (4ml) INH SCH ×4 (02:40→20:03)
[2017-05-31 06:19] LABS: ABG MECHANICAL RATE 15; ARTERIAL BLOOD GAS MODE PRVC; ARTERIAL BLOOD HGB O2 SAT 96.5 % (95.0-98.0); ATERIAL BLOOD GAS PEEP 8; CARBOXYHEMOGLOBIN 2.6 % (0.5-1.5); DRAW SITE L BRA; HHB 0.3 % (0.0-5.0); METHEMOGLOBIN 0.5 % (0.0-3.0)
[2017-05-31 06:29] LABS: BASO # 0.1 K/uL (0.0-0.2); BASO % 0.4 % (0.0-2.0); EOS # 0.1 K/uL (0.0-0.7); EOS % 0.3 % (0.0-4.0); HEMATOCRIT 29.5 % (34.0-47.0); LYMPH # 2.8 K/uL (1.0-4.3); LYMPH % 12.6 % (20.0-40.0); MEAN CELL VOLUME 83.9 fL (81.0-99.0); MEAN CORPUSCULAR HEMOGLOBIN 26.2 pg (27.0-31.0); MEAN CORPUSCULAR HGB CONC 31.3 g/dL (33.0-37.0); MEAN PLATELET VOLUME 8.8 fL (7.2-11.7); MONO % 8.9 % (0.0-10.0); NRBC % 0.1 % (0.0-2.0); RED CELL DISTRIBUTION WIDTH 16.4 % (11.5-14.5); WHITE BLOOD COUNT 22.3 K/uL (4.8-10.8)
[2017-05-31 06:36] LABS: CHLORIDE 109 mmol/L (98-107); SODIUM 146 mmol/L (132-148)
[2017-05-31 06:37] LABS: POTASSIUM 3.9 mmol/L (3.6-5.2)
[2017-05-31 06:38] LABS: GFR AFRICAN-AMERICAN > 60
[2017-05-31 06:39] LABS: ALKALINE PHOSPHATASE 35 U/L (38-126); ALT/SGPT 39 U/L (9-52); AST/SGOT 37 U/L (14-36); BILIRUBIN,TOTAL 0.8 mg/dL (0.2-1.3); BLOOD UREA NITROGEN 57 mg/dL (7-17); CARBON DIOXIDE 28 mmol/L (22-30); GLUCOSE,RANDOM 98 mg/dL (65-105); PHOSPHOROUS 4.3 mg/dL (2.5-4.5); TOTAL PROTEIN 5.2 g/dL (6.3-8.3)
[2017-05-31 06:40] LABS: ALB/GLOB RATIO 1.3 (1.0-2.1); CALCIUM 7.8 mg/dl (8.6-10.4); MAGNESIUM 2.4 mg/dL (1.6-2.3)
[2017-05-31] MEDS: Enoxaparin 120 mg Syringe SC SCH ×2 (10:14→21:11)
[2017-05-31] MEDS: Multiple Vitamins Tab PO SCH (10:14)
[2017-05-31] MEDS: Pantoprazole 40 mg Susp UD NG SCH (10:14)
[2017-05-31] MEDS: Dorzolamide 2% Opht Sol 10ml OU SCH ×3 (10:15→17:44)
[2017-05-31] MEDS: Azithromycin 500 MG in Sodium Chloride 0.9% 250 ML IVPB SCH (10:16)
--- NOTE | 2017-05-31 10:23 | RAD ---
HISTORY: follow up COMPARISON: Comparison is made to 05/30/2017 FINDINGS: LUNGS: Interval improvement in the lungs since the previous study. Persistent hazy opacity at the left lower lung. The ET tube seen with the tip is approximately 3 centimeter above the sang. PLEURA: There is blunting of both costophrenic angle. CARDIOVASCULAR: The cardiac silhouette is enlarged. OSSEOUS STRUCTURES: No significant abnormalities. VISUALIZED UPPER ABDOMEN: Normal. OTHER FINDINGS: None. IMPRESSION: Interval improvement in the lungs since the previous exam.
--- NOTE | 2017-05-31 12:51 | CP.CCUPN ---
CCU Subjective - Physician Review Events Since Last Encounter (Free Text): 05/31/17 12:47 alert and following commands, asking for tube to be removed. CCU Objective - Vital Signs / Intake & Output Vital Signs (Last 4 hours): Vital Signs Temp Pulse Resp BP Pulse Ox 05/31/17 11:46 99.7 F H 05/31/17 10:15 88/33 L 05/31/17 09:00 109 H 22 99 05/31/17 08:59 114 H 27 H 89/47 L 99 Intake and Output (Last 8hrs): Intake & Output 05/30/17 05/31/17 05/31/17 22:59 06:59 14:59 Intake Total 935 460 180 Output Total 340 435 75 Balance 595 25 105 Weight 268 lb Intake: Intake, IV Amount 475 100 Right Forearm 100 Right Hand 375 100 Tube Feeding 360 360 180 Other 100 Output: Urine 340 435 75 Urethral (Hunt) 340 435 75 Other: # Bowel Movements 1 - Physical Exam Head: Positive for: Atraumatic, Normocephalic Pupils: Positive for: PERRL Extroacular Muscles: Positive for: EOMI Mouth: Positive for: Other (intubated; Suction from ET tube has whitish secretions) Respiratory/Chest: Positive for: Decreased Breath Sounds (at bases) Cardiovascular: Positive for: Regular Rate and Rhythm, Normal S1, S2 Abdomen: Positive for: Normal Bowel Sounds. Negative for: Tenderness Neurological: Positive for: GCS=15, Other (follows commands) Psychiatric: Positive for: Alert - Medications Active Medications: Active Medications Generic Name Dose Route Start Last Admin Trade Name Freq PRN Reason Stop Dose Admin Acetylcysteine 4 ml 05/25/17 09:15 05/31/17 07:55 Acetylcysteine 20% INH 4 ml RQ6 [facility] Administration Albuterol/Ipratropium 3 ml 05/28/17 18:45 05/31/17 07:55 Duoneb 3 Mg/0.5 Mg (3 Ml) Ud INH 3 ml RQ6 ALISA Administration Aspirin 81 mg 05/25/17 10:00 05/31/17 10:14 Aspirin Chewable PO 81 mg DAILY [facility] Administration Diltiazem HCl 30 mg 05/26/17 12:00 05/31/17 06:20 Cardizem PO Not Given Q6H [facility] Dorzolamide HCl 10 ml 05/22/17 18:00 05/31/17 10:15 Trusopt OU 1 drop TID ALISA Administration Enalapril Maleate 10 mg 05/23/17 10:00 05/30/17 09:25 Vasotec PO Not Given DAILY [facility] Enoxaparin Sodium 120 mg 05/23/17 22:00 05/31/17 10:14 Lovenox SC 120 mg Q12 [facility] Administration Furosemide 20 mg 05/29/17 18:00 05/31/17 10:15 Lasix IVP 20 mg Q12 [facility] Administration Piperacillin Sod/Tazobactam Sod 3.375 gm in 50 mls @ 100 mls/hr 05/31/17 12: 30 Zosyn 3.375 Gm Iv Premix IVPB Q8H [facility] Montelukast Sodium 10 mg 05/23/17 10:00 05/31/17 10:14 Singulair PO 10 mg DAILY [facility] Administration Multivitamins 1 tab 05/22/17 13:45 05/31/17 10:14 Hexavitamin PO 1 tab DAILY [facility] Administration Nystatin 1 applic 05/27/17 10:30 05/31/17 10:15 Nystop Topical Powder TOP 1 pow TID [facility] Administration Pantoprazole Sodium 40 mg 05/23/17 10:00 05/31/17 10:14 Protonix Susp NG 40 mg DAILY [facility] Administration Rosuvastatin Calcium 10 mg 05/22/17 22:00 05/30/17 21:10 Crestor PO 10 mg HS [facility] Administration - Patient Studies Lab Studies: Lab Studies 05/31/17 05/31/17 05/31/17 Range/Units 06:19 06:19 05:21 WBC 22.3 H D (4.8-10.8) K/uL RBC 3.52 L (3.80-5.20) Mil/uL Hgb 9.2 L D (11.0-16.0) g/dL Hct 29.5 L (34.0-47.0) % MCV 83.9 (81.0-99.0) fL MCH 26.2 L (27.0-31.0) pg MCHC 31.3 L (33.0-37.0) g/dL RDW 16.4 H (11.5-14.5) % Plt Count 229 (130-400) K/uL MPV 8.8 (7.2-11.7) fL Neut % (Auto) 77.8 H (50.0-75.0) % Lymph % (Auto) 12.6 L (20.0-40.0) % Nance % (Auto) 8.9 (0.0-10.0) % Eos % (Auto) 0.3 (0.0-4.0) % Baso % (Auto) 0.4 (0.0-2.0) % Neut # 17.3 H (1.8-7.0) K/uL Lymph # 2.8 (1.0-4.3) K/uL Nance # 2.0 H (0.0-0.8) K/uL Eos # 0.1 (0.0-0.7) K/uL Baso # 0.1 (0.0-0.2) K/uL Puncture Site L bra pCO2 33 L (35-45) mm/Hg pO2 83 (80-100) mm/Hg HCO3 30.9 H (21-28) mmol/L ABG pH 7.57 H (7.35-7.45) ABG Total CO2 31.2 H (22-28) mmol/L ABG O2 Saturation 99.7 H (95-98) % ABG Base Excess 7.7 H (-2.0-3.0) mmol/L ABG Hemoglobin 8.3 L (11.7-17.4) g/dL ABG Carboxyhemoglobin 2.6 H (0.5-1.5) % POC ABG HHb (Measured) 0.3 (0.0-5.0) % ABG Methemoglobin 0.5 (0.0-3.0) % Sj Test Na A-a O2 Difference 161.0 mm/Hg Respiratory Index 1.9 Hgb O2 Saturation 96.5 (95.0-98.0) % Vent Mode Prvc Mechanical Rate 15 FiO2 40.0 % Tidal Volume 430 PEEP 8 Sodium 146 (132-148) mmol/L Potassium 3.9 (3.6-5.2) mmol/L Chloride 109 H (98-107) mmol/L Carbon Dioxide 28 (22-30) mmol/L Anion Gap 13 (10-20) BUN 57 H (7-17) mg/dL Creatinine 0.8 (0.7-1.2) MG/DL Est GFR ( Amer) > 60 Est GFR (Non-Af Amer) > 60 Random Glucose 98 (65-105) mg/dL Calcium 7.8 L (8.6-10.4) mg/dl Phosphorus 4.3 (2.5-4.5) mg/dL Magnesium 2.4 H (1.6-2.3) mg/dL Total Bilirubin 0.8 (0.2-1.3) mg/dL AST 37 H (14-36) U/L ALT 39 (9-52) U/L Alkaline Phosphatase 35 L D (38-126) U/L Total Protein 5.2 L (6.3-8.3) g/dL Albumin 2.9 L (3.5-5.0) g/dL Globulin 2.3 (2.2-3.9) gm/dL Albumin/Globulin Ratio 1.3 (1.0-2.1) Laboratory Results - last 24 hr 05/31/17 05/31/17 05/31/17 05:21 06:19 06:19 WBC 22.3 H D RBC 3.52 L Hgb 9.2 L D Hct 29.5 L MCV 83.9 MCH 26.2 L MCHC 31.3 L RDW 16.4 H Plt Count 229 MPV 8.8 Neut % (Auto) 77.8 H Lymph % (Auto) 12.6 L Nance % (Auto) 8.9 Eos % (Auto) 0.3 Baso % (Auto) 0.4 Neut # 17.3 H Lymph # 2.8 Nance # 2.0 H Eos # 0.1 Baso # 0.1 Puncture Site L bra pCO2 33 L pO2 83 HCO3 30.9 H ABG pH 7.57 H ABG Total CO2 31.2 H ABG O2 Saturation 99.7 H ABG Base Excess 7.7 H ABG Hemoglobin 8.3 L ABG Carboxyhemoglobin 2.6 H POC ABG HHb (Measured) 0.3 ABG Methemoglobin 0.5 Sj Test Na A-a O2 Difference 161.0 Respiratory Index 1.9 Hgb O2 Saturation 96.5 Vent Mode Prvc Mechanical Rate 15 FiO2 40.0 Tidal Volume 430 PEEP 8 Sodium 146 Potassium 3.9 Chloride 109 H Carbon Dioxide 28 Anion Gap 13 BUN 57 H Creatinine 0.8 Est GFR ( Amer) > 60 Est GFR (Non-Af Amer) > 60 Random Glucose 98 Calcium 7.8 L Phosphorus 4.3 Magnesium 2.4 H Total Bilirubin 0.8 AST 37 H ALT 39 Alkaline Phosphatase 35 L D Total Protein 5.2 L Albumin 2.9 L Globulin 2.3 Albumin/Globulin Ratio 1.3 Review of Systems - Review of Systems All systems: reviewed and no additional remarkable complaints except - Respiratory Respiratory: Other (ett discomfort) Critical Care Progress Note - Ventilator Checklist Head of Bed 30 Degrees: Yes Daily Sedation Vacation: Yes Daily Assessment of Readiness to Wean: Yes Daily Spontaneous Breathing Trial: Yes PUD Prophalyxis: Yes DVT Prophylaxis: Yes Assessment/Plan (1) Acute respiratory failure with hypoxia and hypercapnia Assessment and plan: 76 year old female with PMHx of COPD, AFib, Asthma, HTN, Cardiomegaly with Diastolic Heart Failure, Dementia presenting with acute respiratory failure likely secondary COPD exacerbation, resulting in intubation (05/22). Neuro: Alert and following commands, daily sedation vacation off propofol drip. Pulm: Acute respiratory failure secondary to pulmonary edema, on vent. Mucomyst , DuoNeb's, and diuresis. patient tolerated PS trials for two days, with improvement in CXR and pulmonary dynamics, will extubate to BIPAP today. CV: Mildly hypotensive, will monitor, hold enalapril. Acute on chronic decompensated diastolic heart failure. A. fib rate controlled with Cardizem by mouth. Hem: A. fib on full dose anticoagulation with Lovenox. Renal: urine output increased with diuresis. diamox for diuretic induced alkalosis, will also cut back to lasix once a day. Endo: No acute issues GI: NPO, s/s eval tomorrow. ID: Empiric therapy for possible underlying pneumonia, continue Zosyn and vancomycin and azithromycin. DVT proph - Lovenox full dose GI proph - Protonix hunt for strict I/O's during acute illness Code status - full code Critical Care Time spent 35 minutes Multi-disciplinary rounds were performed with house staff, nursing, speech therapy, respiratory therapy, pharmacy and nutrition with integrated input from the primary team/attending and other consulting services. The documented time is cumulative and includes review of patient data/exams/labs/chart review and examination of the patient on rounds and throughout the day; time is exclusive of any procedures or teaching time. Current Visit: Yes Status: Acute
[2017-05-31] MEDS: Piperacill/Tazo 3.375gm in Dex 3.375 GM/50 ML BAG IVPB SCH ×2 (14:41→21:11)
--- NOTE | 2017-05-31 17:05 | CP.PCM.PN ---
Subjective - Date & Time of Evaluation Date of Evaluation: 05/31/17 Time of Evaluation: 17:05 - Subjective Subjective: extubated no on bipap difficult to communicate with bipap no cp no sob via moving her head yes/no Objective - Vital Signs/Intake and Output Vital Signs (last 24 hours): Temp Pulse Resp BP Pulse Ox 97.3 F L 108 H 29 H 93/41 L 97 05/31/17 16:00 05/31/17 16:00 05/31/17 16:00 05/31/17 15:59 05/31/17 16:00 Intake and Output: 05/31/17 05/31/17 06:59 18:59 Intake Total 1015 225 Output Total 655 145 Balance 360 80 - Medications Medications: Current Medications Acetazolamide (Diamox 500 Mg Inj) 500 mg IV Q12H [facility] Stop: 06/01/17 02:01 Last Admin: 05/31/17 14:33 Dose: 500 mg Acetylcysteine (Acetylcysteine 20%) 4 ml INH RQ6 [facility] Last Admin: 05/31/17 13:36 Dose: 4 ml Albuterol/Ipratropium (Duoneb 3 Mg/0.5 Mg (3 Ml) Ud) 3 ml INH RQ6 [facility] Last Admin: 05/31/17 13:36 Dose: 3 ml Aspirin (Aspirin Chewable) 81 mg PO DAILY [facility] Last Admin: 05/31/17 10:14 Dose: 81 mg Diltiazem HCl (Cardizem) 30 mg PO Q6H [facility] Last Admin: 05/31/17 12:00 Dose: Not Given Dorzolamide HCl (Trusopt) 10 ml OU TID [facility] Last Admin: 05/31/17 14:42 Dose: 1 drop Enalapril Maleate (Vasotec) 10 mg PO DAILY [facility] Last Admin: 05/30/17 09:25 Dose: Not Given Enoxaparin Sodium (Lovenox) 120 mg SC Q12 [facility] Last Admin: 05/31/17 10:14 Dose: 120 mg Furosemide (Lasix) 40 mg IVP DAILY [facility] Piperacillin Sod/Tazobactam Sod (Zosyn 3.375 Gm Iv Premix) 3.375 gm in 50 mls @ 100 mls/hr IVPB Q8H [facility] Last Admin: 05/31/17 14:41 Dose: 100 mls/hr Montelukast Sodium (Singulair) 10 mg PO DAILY [facility] Last Admin: 05/31/17 10:14 Dose: 10 mg Multivitamins (Hexavitamin) 1 tab PO DAILY [facility] Last Admin: 05/31/17 10:14 Dose: 1 tab Nystatin (Nystop Topical Powder) 1 applic TOP TID [facility] Last Admin: 05/31/17 14:39 Dose: 1 pow Pantoprazole Sodium (Protonix Susp) 40 mg NG DAILY [facility] Last Admin: 05/31/17 10:14 Dose: 40 mg Rosuvastatin Calcium (Crestor) 10 mg PO HS [facility] Last Admin: 05/30/17 21:10 Dose: 10 mg - Labs Labs: 05/31/17 06:19 05/31/17 06:19 - Constitutional Appears: Well, No Acute Distress - Head Exam Head Exam: ATRAUMATIC - ENT Exam ENT Exam: Mucous Membranes Dry - Respiratory Exam Respiratory Exam: NORMAL BREATHING PATTERN. absent: Clear to Ausculation Bilateral Additional comments: diffuse coarse bs - Cardiovascular Exam Cardiovascular Exam: Irregular Rhythm, +S1, +S2. absent: REGULAR RHYTHM - GI/Abdominal Exam GI & Abdominal Exam: Soft, Normal Bowel Sounds. absent: Tenderness, Organomegaly - Neurological Exam Neurological Exam: Alert, Awake. absent: Oriented x3 Assessment and Plan - Assessment and Plan (Free Text) Assessment: Acute respiratory failure with hypoxia and hypercapnia Assessment and plan: 76 year old female with PMHx of COPD, AFib, Asthma, HTN, Cardiomegaly with Diastolic Heart Failure, Dementia presenting with acute respiratory failure likely secondary COPD exacerbation, resulting in intubation (05/22). Planned extubation today Continue care in ICU
--- NOTE | 2017-05-31 22:19 | CP.PCM.PN ---
Subjective - Date & Time of Evaluation Date of Evaluation: 05/31/17 Time of Evaluation: 15:10 - Subjective Subjective: Subjective patient seen and examined On BiPAP Feeels better Physical Examination - Head Exam Head Exam: ATRAUMATIC, NORMOCEPHALIC - ENT Exam ENT Exam: Mucous Membranes Moist - Neck Exam Neck Exam: Normal Inspection - Respiratory Exam Respiratory Exam: Decreased Breath Sounds - Cardiovascular Exam Cardiovascular Exam: REGULAR RHYTHM - GI/Abdominal Exam GI & Abdominal Exam: Soft, Normal Bowel Sounds - Extremities Exam Extremities Exam: Pedal Edema Objective - Vital Signs/Intake and Output Vital Signs (last 24 hours): Temp Pulse Resp BP Pulse Ox 97.3 F L 112 H 33 H 105/40 L 98 05/31/17 20:00 05/31/17 22:00 05/31/17 22:00 05/31/17 22:01 05/31/17 22:00 Intake and Output: 05/31/17 06/01/17 18:59 06:59 Intake Total 225 50 Output Total 152 25 Balance 73 25 - Medications Medications: Current Medications Acetazolamide (Diamox 500 Mg Inj) 500 mg IV Q12H [facility] Stop: 06/01/17 02:01 Last Admin: 05/31/17 14:33 Dose: 500 mg Acetylcysteine (Acetylcysteine 20%) 4 ml INH RQ6 [facility] Last Admin: 05/31/17 20:03 Dose: 4 ml Albuterol/Ipratropium (Duoneb 3 Mg/0.5 Mg (3 Ml) Ud) 3 ml INH RQ6 [facility] Last Admin: 05/31/17 20:02 Dose: 3 ml Aspirin (Aspirin Chewable) 81 mg PO DAILY [facility] Last Admin: 05/31/17 10:14 Dose: 81 mg Diltiazem HCl (Cardizem) 30 mg PO Q6H [facility] Last Admin: 05/31/17 17:46 Dose: Not Given Dorzolamide HCl (Trusopt) 10 ml OU TID [facility] Last Admin: 05/31/17 17:44 Dose: 1 drop Enalapril Maleate (Vasotec) 10 mg PO DAILY [facility] Last Admin: 05/30/17 09:25 Dose: Not Given Enoxaparin Sodium (Lovenox) 120 mg SC Q12 [facility] Last Admin: 05/31/17 21:11 Dose: 120 mg Furosemide (Lasix) 40 mg IVP DAILY [facility] Piperacillin Sod/Tazobactam Sod (Zosyn 3.375 Gm Iv Premix) 3.375 gm in 50 mls @ 100 mls/hr IVPB Q8H [facility] Last Admin: 05/31/17 21:11 Dose: 100 mls/hr Montelukast Sodium (Singulair) 10 mg PO DAILY [facility] Last Admin: 05/31/17 10:14 Dose: 10 mg Multivitamins (Hexavitamin) 1 tab PO DAILY [facility] Last Admin: 05/31/17 10:14 Dose: 1 tab Nystatin (Nystop Topical Powder) 1 applic TOP TID [facility] Last Admin: 05/31/17 17:44 Dose: 1 pow Pantoprazole Sodium (Protonix Susp) 40 mg NG DAILY [facility] Last Admin: 05/31/17 10:14 Dose: 40 mg Rosuvastatin Calcium (Crestor) 10 mg PO HS [facility] Last Admin: 05/31/17 22:02 Dose: Not Given - Labs Labs: 05/31/17 06:19 05/31/17 06:19 Assessment and Plan - Assessment and Plan (Free Text) Assessment: (1) Acute respiratory failure with hypoxia and hypercapnia Assessment & Plan: On BiPAP (2) Pneumonia Assessment & Plan: 05/29: Remains on IV abx Zosyn and Vancomycin - the WBC is 14. Currently afebrile and also blood and sputum cultures are negative (3) COPD exacerbation Assessment & Plan: 05/29: On nebulizers and twice a day solumedrol (4) Atrial fibrillation, new onset Assessment & Plan: Rate controlled now. Continue Cardizem by mouth for rate control. Patient is on therapeutic anticoagulation with Lovenox. (5) CHF (congestive heart failure) Assessment & Plan: 05/29: Continue following CXRAYs, urine ins and outs. Patient is getting lasix BID and also is on vasotech. (6) History of hyperlipidemia Assessment & Plan: Continue statin. (7) History of hypertension Assessment & Plan: Continue current medication.
[2017-06-01] MEDS: Albuterol-Ipratrop 3 mg / 0.5 (3 ml) UD INH SCH ×4 (01:35→19:40)
[2017-06-01] MEDS: Acetylcysteine 20% Inhal Soln (4ml) INH SCH ×4 (01:35→19:40)
[2017-06-01] MEDS: Piperacill/Tazo 3.375gm in Dex 3.375 GM/50 ML BAG IVPB SCH ×3 (04:00→20:45)
[2017-06-01 06:23] LABS: CHLORIDE 106 mmol/L (98-107); POTASSIUM 4.3 mmol/L (3.6-5.2); SODIUM 147 mmol/L (132-148)
[2017-06-01 06:25] LABS: ALKALINE PHOSPHATASE 33 U/L (38-126); AST/SGOT 34 U/L (14-36); BILIRUBIN,TOTAL 0.7 mg/dL (0.2-1.3); BLOOD UREA NITROGEN 81 mg/dL (7-17); CARBON DIOXIDE 29 mmol/L (22-30); GFR AFRICAN-AMERICAN 18; TOTAL PROTEIN 4.5 g/dL (6.3-8.3)
[2017-06-01 06:26] LABS: ALT/SGPT 39 U/L (9-52); CALCIUM 7.8 mg/dl (8.6-10.4); GLUCOSE,RANDOM 115 mg/dL (65-105); MAGNESIUM 2.8 mg/dL (1.6-2.3); PHOSPHOROUS 8.3 mg/dL (2.5-4.5)
[2017-06-01 06:32] LABS: BASO # 0.2 K/uL (0.0-0.2); BASO % 0.6 % (0.0-2.0); EOS % 0.1 % (0.0-4.0); LYMPH # 3.5 K/uL (1.0-4.3); LYMPH % 12.4 % (20.0-40.0); MEAN CELL VOLUME 84.8 fL (81.0-99.0); MEAN CORPUSCULAR HEMOGLOBIN 25.6 pg (27.0-31.0); MEAN CORPUSCULAR HGB CONC 30.1 g/dL (33.0-37.0); MEAN PLATELET VOLUME 9.4 fL (7.2-11.7); MONO # 2.3 K/uL (0.0-0.8); MONO % 8.1 % (0.0-10.0); NRBC % 0.1 % (0.0-2.0); RED CELL DISTRIBUTION WIDTH 17.1 % (11.5-14.5); RETIC% 1.5 % (0.5-1.5); WHITE BLOOD COUNT 28.5 K/uL (4.8-10.8)
[2017-06-01 06:56] LABS: BASO # 0.3 K/uL (0.0-0.2); BASO % 0.9 % (0.0-2.0); EOS % 0.1 % (0.0-4.0); HEMATOCRIT 22.6 % (34.0-47.0); LYMPH # 2.9 K/uL (1.0-4.3); LYMPH % 9.7 % (20.0-40.0); MEAN CORPUSCULAR HEMOGLOBIN 25.7 pg (27.0-31.0); MEAN CORPUSCULAR HGB CONC 30.3 g/dL (33.0-37.0); MEAN PLATELET VOLUME 9.2 fL (7.2-11.7); MONO # 2.1 K/uL (0.0-0.8); MONO % 7.1 % (0.0-10.0); NRBC % 0.1 % (0.0-2.0); PLATELET COUNT 213 K/uL (130-400); RED CELL DISTRIBUTION WIDTH 16.9 % (11.5-14.5); WHITE BLOOD COUNT 29.7 K/uL (4.8-10.8)
[2017-06-01 07:18] LABS: ALB/GLOB RATIO 1.3 (1.0-2.1)
[2017-06-01 07:31] LABS: FOLATE > 20.0 ng/mL
[2017-06-01 08:17] LABS: NUCLEATED RED BLOOD CELL 2 % (0-0); TOTAL CELLS COUNTED 100
[2017-06-01 08:18] LABS: NEUTROPHIL 87 % (50-75)
[2017-06-01] MEDS ORDERED: Sodium Chloride 0.9% 1,000 ML IV SCH (09:30)
[2017-06-01 09:47] LABS: ABG ALLEN TEST P0S; ABG MECHANICAL RATE 12; ARTERIAL BLOOD GAS MODE BiPAP; ARTERIAL BLOOD HGB O2 SAT 96.1 % (95.0-98.0); CARBOXYHEMOGLOBIN 1.8 % (0.5-1.5); DRAW SITE R/RAD; HHB 0.6 % (0.0-5.0); METHEMOGLOBIN 1.5 % (0.0-3.0)
--- NOTE | 2017-06-01 10:16 | RAD ---
Chest x-ray single frontal view History: Atelectasis. Comparison: 05/31/2017 Findings: Prominent patchy increased markings at both lung bases ; left greater than right suggestive for infiltrate and or atelectasis. Suggestion of a small left and or trace right pleural effusion. Right hilar prominence. Elevated right hemidiaphragm. Mild cardiomegaly. Impression: Prominent patchy increased markings at both lung bases ; left greater than right suggestive for infiltrate and or atelectasis. Suggestion of a small left and or trace right pleural effusion. Right hilar prominence. Elevated right hemidiaphragm. Mild cardiomegaly.
[2017-06-01] MEDS: Multiple Vitamins Tab PO SCH (10:23)
[2017-06-01] MEDS: Dorzolamide 2% Opht Sol 10ml OU SCH ×3 (10:27→18:38)
--- NOTE | 2017-06-01 11:10 | CP.CCUPN ---
CCU Subjective - Physician Review Subjective (Free Text): Patient seen and examined at bedside. Patient is sedated and still hypoxic. Patient was extubated yesterday and was breathing on BiPAP at time of examination. She appears more lethargic on examination today and minimally responsive to verbal stimulation. Per nursing staff, no acute events overnight and remains easily arousable. ROS not obtained due to current status. Case discussed with house-staff; medical records and chart reviewed and labs discussed. 06/01/17 16:12 CCU Objective - Vital Signs / Intake & Output Vital Signs (Last 4 hours): Vital Signs Pulse Resp BP Pulse Ox 06/01/17 10:30 110 H 33 H 100 06/01/17 10:00 104 H 33 H 97/31 L 100 06/01/17 09:30 106 H 33 H 100 06/01/17 09:00 106 H 32 H 100 06/01/17 08:59 111 H 32 H 106/41 L 100 06/01/17 08:30 104 H 32 H 99 06/01/17 08:18 110 H 06/01/17 08:00 108 H 31 H 100 06/01/17 07:59 116 H 31 H 100/43 L 100 06/01/17 07:30 105 H 32 H 100 Intake and Output (Last 8hrs): Intake & Output 05/31/17 06/01/17 06/01/17 22:59 06:59 14:59 Intake Total 50 50 50 Output Total 57 45 10 Balance -7 5 40 Weight 265 lb Intake: Intake, IV Amount 50 50 50 Right Forearm 50 Right Hand 50 50 Tube Feeding 0 Output: Urine 57 45 10 Urethral (Saenz) 57 45 10 - Physical Exam Head: Positive for: Atraumatic, Normocephalic Pupils: Positive for: PERRL Extroacular Muscles: Positive for: EOMI Mouth: Positive for: Moist Mucous Membranes Respiratory/Chest: Positive for: Decreased Breath Sounds (at bases) Cardiovascular: Positive for: Regular Rate and Rhythm, Normal S1, S2 Abdomen: Positive for: Normal Bowel Sounds. Negative for: Tenderness Upper Extremity: Positive for: Edema, Swelling, Other (ecchymosis b/l; faint pulses bilaterally) Lower Extremity: Positive for: NORMAL PULSES Neurological: Positive for: GCS=15, Other (follows commands) Skin: Positive for: Other (Ecchymosis on bilateral upper extremities) Psychiatric: Positive for: Alert - Medications Active Medications: Active Medications Generic Name Dose Route Start Last Admin Trade Name Ovidioq PRN Reason Stop Dose Admin Acetylcysteine 4 ml 05/25/17 09:15 06/01/17 08:17 Acetylcysteine 20% INH 4 ml RQ6 ALISA Administration Albuterol/Ipratropium 3 ml 05/28/17 18:45 06/01/17 08:18 Duoneb 3 Mg/0.5 Mg (3 Ml) Ud INH 3 ml RQ6 ALISA Administration Diltiazem HCl 30 mg 05/26/17 12:00 06/01/17 05:09 Cardizem PO Not Given Q6H ALISA Dorzolamide HCl 10 ml 05/22/17 18:00 06/01/17 10:27 Trusopt OU 1 drop TID ALISA Administration Enalapril Maleate 10 mg 05/23/17 10:00 05/30/17 09:25 Vasotec PO Not Given DAILY ALISA Furosemide 40 mg 06/01/17 10:00 Lasix IVP DAILY ALISA Piperacillin Sod/Tazobactam Sod 3.375 gm in 50 mls @ 100 mls/hr 05/31/17 12: 30 06/01/17 04:00 Zosyn 3.375 Gm Iv Premix IVPB 100 mls/hr Q8H ALISA Administration Sodium Chloride 1,000 mls @ 50 mls/hr 06/01/17 09:30 06/01/17 10:24 Sodium Chloride 0.9% IV 50 mls/hr .Q20H ALISA Administration Montelukast Sodium 10 mg 05/23/17 10:00 06/01/17 10:23 Singulair PO Not Given DAILY ALISA Multivitamins 1 tab 05/22/17 13:45 06/01/17 10:23 Hexavitamin PO Not Given DAILY ALISA Nystatin 1 applic 05/27/17 10:30 06/01/17 10:28 Nystop Topical Powder TOP 1 pow TID ALISA Administration Pantoprazole Sodium 40 mg 05/23/17 10:00 05/31/17 10:14 Protonix Susp NG 40 mg DAILY ALISA Administration Rosuvastatin Calcium 10 mg 05/22/17 22:00 05/31/17 22:02 Crestor PO Not Given HS ALISA - Patient Studies Lab Studies: Lab Studies 09/06/01/17 06/01/17 Range/Units 09:25 09:23 06:53 WBC (4.8-10.8) K/uL RBC (3.80-5.20) Mil/uL Hgb (11.0-16.0) g/dL Hct (34.0-47.0) % MCV (81.0-99.0) fL MCH (27.0-31.0) pg MCHC (33.0-37.0) g/dL RDW (11.5-14.5) % Plt Count (130-400) K/uL MPV (7.2-11.7) fL Neut % (Auto) (50.0-75.0) % Lymph % (Auto) (20.0-40.0) % [place] % (Auto) (0.0-10.0) % Eos % (Auto) (0.0-4.0) % Baso % (Auto) (0.0-2.0) % Neut # (1.8-7.0) K/uL Lymph # (1.0-4.3) K/uL [place] # (0.0-0.8) K/uL Eos # (0.0-0.7) K/uL Baso # (0.0-0.2) K/uL Neutrophils % (Manual) (50-75) % Lymphocytes % (Manual) (20-40) % Monocytes % (Manual) (0-10) % Nucleated RBC % (0-0) % Platelet Estimate (NORMAL) Polychromasia Hypochromasia (manual) Poikilocytosis (manual Anisocytosis (manual) Microcytosis (manual) Macrocytosis (manual) Target Cells Retic Count (0.5-1.5) % Puncture Site R/rad pCO2 43 (35-45) mm/Hg pO2 104 H (80-100) mm/Hg HCO3 28.5 H (21-28) mmol/L ABG pH 7.44 (7.35-7.45) ABG Total CO2 30.5 H (22-28) mmol/L ABG O2 Saturation 99.4 H (95-98) % ABG Base Excess 4.6 H (-2.0-3.0) mmol/L ABG Hemoglobin 7.6 L (11.7-17.4) g/dL ABG Carboxyhemoglobin 1.8 H (0.5-1.5) % POC ABG HHb (Measured) 0.6 (0.0-5.0) % ABG Methemoglobin 1.5 (0.0-3.0) % Sj Test P0s A-a O2 Difference 127.0 mm/Hg Respiratory Index 1.2 Hgb O2 Saturation 96.1 (95.0-98.0) % Vent Mode Bipap Mechanical Rate 12 FiO2 40.0 % Inspiratory BiPAP 12 Expiratory BiPAP 8 Crit Value Called To Dr holliday Crit Value Called By Alberto hurst Crit Value Read Back Y Blood Gas Notified Time 940 Sodium (132-148) mmol/L Potassium (3.6-5.2) mmol/L Chloride (98-107) mmol/L Carbon Dioxide (22-30) mmol/L Anion Gap (10-20) BUN (7-17) mg/dL Creatinine (0.7-1.2) MG/DL Est GFR ( Amer) Est GFR (Non-Af Amer) POC Glucose (mg/dL) 163 H (65-110) mg/dL Random Glucose (65-105) mg/dL Calcium (8.6-10.4) mg/dl Phosphorus (2.5-4.5) mg/dL Magnesium (1.6-2.3) mg/dL Ferritin ng/mL Total Bilirubin (0.2-1.3) mg/dL AST (14-36) U/L ALT (9-52) U/L Alkaline Phosphatase (38-126) U/L Total Protein (6.3-8.3) g/dL Albumin (3.5-5.0) g/dL Globulin (2.2-3.9) gm/dL Albumin/Globulin Ratio (1.0-2.1) Vitamin B12 (239-931) pg/mL Folate ng/mL Blood Type A POSITIVE Blood Type Confirm A POSITIVE Antibody Screen Negative 06/01/17 06/01/17 06/01/17 Range/Units 06:53 06:00 06:00 WBC 29.7 H 28.5 H (4.8-10.8) K/uL RBC 2.66 L 2.48 L (3.80-5.20) Mil/uL Hgb 6.9 L 6.3 L* D (11.0-16.0) g/dL Hct 22.6 L 21.0 L (34.0-47.0) % MCV 85.0 84.8 (81.0-99.0) fL MCH 25.7 L 25.6 L (27.0-31.0) pg MCHC 30.3 L 30.1 L (33.0-37.0) g/dL RDW 16.9 H 17.1 H (11.5-14.5) % Plt Count 213 215 (130-400) K/uL MPV 9.2 9.4 (7.2-11.7) fL Neut % (Auto) 82.2 H 78.8 H (50.0-75.0) % Lymph % (Auto) 9.7 L 12.4 L (20.0-40.0) % [place] % (Auto) 7.1 8.1 (0.0-10.0) % Eos % (Auto) 0.1 0.1 (0.0-4.0) % Baso % (Auto) 0.9 0.6 (0.0-2.0) % Neut # 24.4 H 22.5 H (1.8-7.0) K/uL Lymph # 2.9 3.5 (1.0-4.3) K/uL [place] # 2.1 H 2.3 H (0.0-0.8) K/uL Eos # 0.0 0.0 (0.0-0.7) K/uL Baso # 0.3 H 0.2 (0.0-0.2) K/uL Neutrophils % (Manual) 87 H (50-75) % Lymphocytes % (Manual) 8 L (20-40) % Monocytes % (Manual) 5 (0-10) % Nucleated RBC % 2 H (0-0) % Platelet Estimate Normal (NORMAL) Polychromasia Slight Hypochromasia (manual) Marked Poikilocytosis (manual Slight Anisocytosis (manual) Slight Microcytosis (manual) Slight Macrocytosis (manual) Slight Target Cells Slight Retic Count 1.5 (0.5-1.5) % Puncture Site pCO2 (35-45) mm/Hg pO2 (80-100) mm/Hg HCO3 (21-28) mmol/L ABG pH (7.35-7.45) ABG Total CO2 (22-28) mmol/L ABG O2 Saturation (95-98) % ABG Base Excess (-2.0-3.0) mmol/L ABG Hemoglobin (11.7-17.4) g/dL ABG Carboxyhemoglobin (0.5-1.5) % POC ABG HHb (Measured) (0.0-5.0) % ABG Methemoglobin (0.0-3.0) % Sj Test A-a O2 Difference mm/Hg Respiratory Index Hgb O2 Saturation (95.0-98.0) % Vent Mode Mechanical Rate FiO2 % Inspiratory BiPAP Expiratory BiPAP Crit Value Called To Crit Value Called By Crit Value Read Back Blood Gas Notified Time Sodium 147 (132-148) mmol/L Potassium 4.3 (3.6-5.2) mmol/L Chloride 106 (98-107) mmol/L Carbon Dioxide 29 (22-30) mmol/L Anion Gap 16 (10-20) BUN 81 H (7-17) mg/dL Creatinine 3.0 H (0.7-1.2) MG/DL Est GFR ( Amer) 18 Est GFR (Non-Af Amer) 15 POC Glucose (mg/dL) (65-110) mg/dL Random Glucose 115 H (65-105) mg/dL Calcium 7.8 L (8.6-10.4) mg/dl Phosphorus 8.3 H (2.5-4.5) mg/dL Magnesium 2.8 H (1.6-2.3) mg/dL Ferritin 85.0 ng/mL Total Bilirubin 0.7 (0.2-1.3) mg/dL AST 34 (14-36) U/L ALT 39 (9-52) U/L Alkaline Phosphatase 33 L (38-126) U/L Total Protein 4.5 L (6.3-8.3) g/dL Albumin 2.5 L (3.5-5.0) g/dL Globulin 2.0 L (2.2-3.9) gm/dL Albumin/Globulin Ratio 1.3 (1.0-2.1) Vitamin B12 823 (239-931) pg/mL Folate > 20.0 ng/mL Blood Type Blood Type Confirm Antibody Screen Laboratory Results - last 24 hr 06/01/17 06/01/17 06/01/17 06:00 06:00 06:53 WBC 28.5 H 29.7 H RBC 2.48 L 2.66 L Hgb 6.3 L* D 6.9 L Hct 21.0 L 22.6 L MCV 84.8 85.0 MCH 25.6 L 25.7 L MCHC 30.1 L 30.3 L RDW 17.1 H 16.9 H Plt Count 215 213 MPV 9.4 9.2 Neut % (Auto) 78.8 H 82.2 H Lymph % (Auto) 12.4 L 9.7 L [place] % (Auto) 8.1 7.1 Eos % (Auto) 0.1 0.1 Baso % (Auto) 0.6 0.9 Neut # 22.5 H 24.4 H Lymph # 3.5 2.9 [place] # 2.3 H 2.1 H Eos # 0.0 0.0 Baso # 0.2 0.3 H Neutrophils % (Manual) 87 H Lymphocytes % (Manual) 8 L Monocytes % (Manual) 5 Nucleated RBC % 2 H Platelet Estimate Normal Polychromasia Slight Hypochromasia (manual) Marked Poikilocytosis (manual Slight Anisocytosis (manual) Slight Microcytosis (manual) Slight Macrocytosis (manual) Slight Target Cells Slight Retic Count 1.5 Puncture Site pCO2 pO2 HCO3 ABG pH ABG Total CO2 ABG O2 Saturation ABG Base Excess ABG Hemoglobin ABG Carboxyhemoglobin POC ABG HHb (Measured) ABG Methemoglobin Sj Test A-a O2 Difference Respiratory Index Hgb O2 Saturation Vent Mode Mechanical Rate FiO2 Inspiratory BiPAP Expiratory BiPAP Crit Value Called To Crit Value Called By Crit Value Read Back Blood Gas Notified Time Sodium 147 Potassium 4.3 Chloride 106 Carbon Dioxide 29 Anion Gap 16 BUN 81 H Creatinine 3.0 H Est GFR ( Amer) 18 Est GFR (Non-Af Amer) 15 POC Glucose (mg/dL) Random Glucose 115 H Calcium 7.8 L Phosphorus 8.3 H Magnesium 2.8 H Ferritin 85.0 Total Bilirubin 0.7 AST 34 ALT 39 Alkaline Phosphatase 33 L Total Protein 4.5 L Albumin 2.5 L Globulin 2.0 L Albumin/Globulin Ratio 1.3 Vitamin B12 823 Folate > 20.0 Blood Type Blood Type Confirm Antibody Screen 06/01/17 06/01/17 06/01/17 06:53 09:23 09:25 WBC RBC Hgb Hct MCV MCH MCHC RDW Plt Count MPV Neut % (Auto) Lymph % (Auto) [place] % (Auto) Eos % (Auto) Baso % (Auto) Neut # Lymph # [place] # Eos # Baso # Neutrophils % (Manual) Lymphocytes % (Manual) Monocytes % (Manual) Nucleated RBC % Platelet Estimate Polychromasia Hypochromasia (manual) Poikilocytosis (manual Anisocytosis (manual) Microcytosis (manual) Macrocytosis (manual) Target Cells Retic Count Puncture Site R/rad pCO2 43 pO2 104 H HCO3 28.5 H ABG pH 7.44 ABG Total CO2 30.5 H ABG O2 Saturation 99.4 H ABG Base Excess 4.6 H ABG Hemoglobin 7.6 L ABG Carboxyhemoglobin 1.8 H POC ABG HHb (Measured) 0.6 ABG Methemoglobin 1.5 Sj Test P0s A-a O2 Difference 127.0 Respiratory Index 1.2 Hgb O2 Saturation 96.1 Vent Mode Bipap Mechanical Rate 12 FiO2 40.0 Inspiratory BiPAP 12 Expiratory BiPAP 8 Crit Value Called To Dr holliday Crit Value Called By Alberto hurst Crit Value Read Back Y Blood Gas Notified Time 940 Sodium Potassium Chloride Carbon Dioxide Anion Gap BUN Creatinine Est GFR ( Amer) Est GFR (Non-Af Amer) POC Glucose (mg/dL) 163 H Random Glucose Calcium Phosphorus Magnesium Ferritin Total Bilirubin AST ALT Alkaline Phosphatase Total Protein Albumin Globulin Albumin/Globulin Ratio Vitamin B12 Folate Blood Type A POSITIVE Blood Type Confirm A POSITIVE Antibody Screen Negative Review of Systems - Review of Systems Systems not reviewed;Unavailable: Intubated Critical Care Progress Note - Vent Settings TIDAL VOLUME:: 500 RESP RATE:: 20 FIO2:: 100 PEEP:: 5 Assessment/Plan (1) Respiratory acidosis Current Visit: Yes Status: Acute (2) COPD exacerbation Current Visit: Yes Status: Acute (3) Elevated troponin Current Visit: Yes Status: Acute (4) Atrial fibrillation, new onset Current Visit: Yes Status: Acute (5) Cardiomegaly Current Visit: Yes Status: Acute (6) Elevated WBCs Current Visit: Yes Status: Acute (7) Abnormal RBC indices Current Visit: Yes Status: Acute (8) History of hypertension Current Visit: Yes Status: Acute (9) History of hyperlipidemia Current Visit: Yes Status: Acute (10) Change in mental state Current Visit: Yes Status: Acute (11) History of dementia Current Visit: Yes Status: Acute (12) History of gastroesophageal reflux (GERD) Current Visit: Yes Status: Acute (13) History of glaucoma Current Visit: Yes Status: Acute (14) Prophylactic measure Current Visit: Yes Status: Acute - Assessment and Plan (Free Text) Assessment: 76 year old female with PMHx of COPD, AFib, Asthma, HTN, Cardiomegaly with Diastolic Heart Failure, Dementia presenting with acute respiratory failure likely secondary COPD exacerbation, resulting in intubation (05/22). Today 06/01/2017: Patient was reintubated today, A-line access in Left Femoral obtained, and central line in Right IJ was placed. Hgb low, tranfused 2u pRBCs today. Started norephinephrine for pressure support. Neuro: Lethargic compared to yesterday Pulm: Acute respiratory failure secondary to pulmonary edema - Extubated 05/31 on BiPAP this morning - 06/01 CXR: Prominent patchy increased markings at both lung bases; left greater than right suggestive for infiltrate and or atelectasis. Suggestion of a small left and or trace right pleural effusion. - Reintubated today 06/01 - Mucomyst 4 ml RQ6 - DuoNeb 3 ml RQ6 - Singulair 10 mg PO daily - Lasix 40 mg IVP daily CV: Mildly hypotensive, Acute on chronic decompensated diastolic heart failure - norepinephrine - will continue to monitor, hold enalapril - Levophed 4 mg IV - A. fib rate controlled with Cardizem 30 mg PO daily - Crestor 10 mg PO daily Heme: - Bilateral ecchymosis in upper extremities with edema. - Stopped all anti-platelet medications ASA and Lovenox due to anemia - Hgb down to 6.9 today, transfused with 2 units of pRBC. - follow up on venous doppler scan of upper extremities - pending official report Renal: elevated BUN: Cr, urine output decreased today - Nephro consulted, will f/u reccs Endo: No acute issues GI: NPO - Drop in hgb today, f/u Stool guaiac ID: Empiric therapy for possible underlying pneumonia; Candidal rash bilateral breast - continue Zosyn 3.375 grm IV daily - Nystatin powder DVT proph - SCD, hold Lovenox GI proph - Protonix 40 mg Saenz for strict I/O's during acute illness Multivitamins Code status - full code
[2017-06-01] MEDS ORDERED: Etomidate 20 mg/10ml Inj IV ONE (11:43)
[2017-06-01] MEDS ORDERED: Sodium Chloride 0.9% 500 ML IV ONE ×2 (12:10→12:52)
--- NOTE | 2017-06-01 12:31 | CP.PCM.CON ---
History of Present Illness - History of Present Illness History of Present Illness: HPI: Patient is a 76 year old female with PMH of COPD, Asthma, HTN, Cardiomegaly , Dementia who presents with SOB for the past three days. Patient seen in ED on BiPAP and primarily Slovak speaking; history was provided by son. Per son, patient has associated hypersomnolence, weakness and fatigue the past three days. Her homemaker noted memory loss as well. She had a similar episode 2 years ago and was admitted to [facility] (Formerly [facility]) where she received "breathing treatment and stayed for one week". Admits to occasional vomiting which is chronic due to reflux issues. Denies fevers, chills, headaches, chest pain, palpitations, cough, nausea, diarrhea, constipation, or dizziness. PMD: Dr Costa PMHx: COPD (2nd hand smoke); asthma; cardiomegaly; dementia PSHx: cataracts; abdominal hernia about 30 years ago; bilateral tubal ligation Had been treated for COPD exacerbation. Had been extubated. Now in last 24-48 hour period suffered worsening respiratory distress, sudden decrease in HG, very swollen left arm; was on lovenox Now suddenly oliguric, creat jumped to 3.0 Ho h/o CKD Review of Systems - Review of Systems Systems not reviewed;Unavailable: Intubated Past Patient History - Past Medical History & Family History Past Medical History?: Yes Past Family History: Reviewed and not pertinent - Past Social History Smoking Status: Never Smoked Chewing Tobacco Use: No Cigar Use: No Alcohol: None Home Situation {Lives}: Mcfp - CARDIAC Hx Hypertension: Yes - PULMONARY Hx Asthma: Yes Hx Chronic Obstructive Pulmonary Disease (COPD): Yes - NEUROLOGICAL Hx Dementia: Yes - RENAL Hx Chronic Kidney Disease: No - ENDOCRINE/METABOLIC Hx Endocrine Disorders: No - HEMATOLOGICAL/ONCOLOGICAL Hx Blood Disorders: No - INTEGUMENTARY Hx Dermatological Problems: No - MUSCULOSKELETAL/RHEUMATOLOGICAL Hx Degenerative Joint Disease: Yes Hx Osteoarthritis: Yes - GASTROINTESTINAL Hx Gastrointestinal Disorders: No - GENITOURINARY/GYNECOLOGICAL Hx Genitourinary Disorders: No - PSYCHIATRIC Hx Substance Use: No - SURGICAL HISTORY Hx Surgeries: Yes Hx Cataract Extraction: Yes Hx Herniorrhaphy: Yes (Umbilical) - ANESTHESIA Hx Anesthesia: Yes Hx Anesthesia Reactions: No Meds Allergies/Adverse Reactions: Allergies Allergy/AdvReac Type Severity Reaction Status Date / Time No Known Allergies Allergy Unverified 05/22/17 09:31 - Medications Medications: Current Medications Acetylcysteine (Acetylcysteine 20%) 4 ml INH RQ6 [facility] Last Admin: 06/01/17 08:17 Dose: 4 ml Albuterol/Ipratropium (Duoneb 3 Mg/0.5 Mg (3 Ml) Ud) 3 ml INH RQ6 [facility] Last Admin: 06/01/17 08:18 Dose: 3 ml Diltiazem HCl (Cardizem) 30 mg PO Q6H [facility] Last Admin: 06/01/17 05:09 Dose: Not Given Dorzolamide HCl (Trusopt) 10 ml OU TID [facility] Last Admin: 06/01/17 10:27 Dose: 1 drop Enalapril Maleate (Vasotec) 10 mg PO DAILY [facility] Last Admin: 05/30/17 09:25 Dose: Not Given Furosemide (Lasix) 40 mg IVP DAILY [facility] Piperacillin Sod/Tazobactam Sod (Zosyn 3.375 Gm Iv Premix) 3.375 gm in 50 mls @ 100 mls/hr IVPB Q8H [facility] Last Admin: 06/01/17 04:00 Dose: 100 mls/hr Sodium Chloride (Sodium Chloride 0.9%) 1,000 mls @ 50 mls/hr IV .Q20H [facility] Last Admin: 06/01/17 10:24 Dose: 50 mls/hr Montelukast Sodium (Singulair) 10 mg PO DAILY [facility] Last Admin: 06/01/17 10:23 Dose: Not Given Multivitamins (Hexavitamin) 1 tab PO DAILY [facility] Last Admin: 06/01/17 10:23 Dose: Not Given Nystatin (Nystop Topical Powder) 1 applic TOP TID [facility] Last Admin: 06/01/17 10:28 Dose: 1 pow Pantoprazole Sodium (Protonix Susp) 40 mg NG DAILY [facility] Last Admin: 05/31/17 10:14 Dose: 40 mg Rosuvastatin Calcium (Crestor) 10 mg PO HS [facility] Last Admin: 05/31/17 22:02 Dose: Not Given Physical Exam - Constitutional Appears: In Acute Distress, Chronically Ill - Head Exam Head Exam: ATRAUMATIC, NORMAL INSPECTION - Eye Exam Eye Exam: EOMI, Normal appearance - Neck Exam Neck exam: Positive for: Normal Inspection. Negative for: Tenderness - Respiratory Exam Respiratory Exam: Decreased Breath Sounds, Respiratory Distress - Cardiovascular Exam Cardiovascular Exam: REGULAR RHYTHM, +S1 - GI/Abdominal Exam GI & Abdominal Exam: Soft. absent: Tenderness - Extremities Exam Extremities exam: Positive for: normal inspection. Negative for: tenderness - Neurological Exam Neurological exam: Altered, CN II-XII Intact - Skin Skin Exam: Dry, Warm Results - Vital Signs Recent Vital Signs: Last Vital Signs Temp 98 F 06/01/17 04:00 Pulse 98 H 06/01/17 12:01 Resp 25 H 06/01/17 12:01 BP 89/19 L 06/01/17 12:01 Pulse Ox 100 06/01/17 12:01 - Labs Result Diagrams: 06/01/17 06:53 06/01/17 06:00 Labs: Laboratory Results - last 24 hr 06/01/17 06/01/17 06/01/17 06:00 06:00 06:53 WBC 28.5 H 29.7 H RBC 2.48 L 2.66 L Hgb 6.3 L* D 6.9 L Hct 21.0 L 22.6 L MCV 84.8 85.0 MCH 25.6 L 25.7 L MCHC 30.1 L 30.3 L RDW 17.1 H 16.9 H Plt Count 215 213 MPV 9.4 9.2 Neut % (Auto) 78.8 H 82.2 H Lymph % (Auto) 12.4 L 9.7 L [place] % (Auto) 8.1 7.1 Eos % (Auto) 0.1 0.1 Baso % (Auto) 0.6 0.9 Neut # 22.5 H 24.4 H Lymph # 3.5 2.9 [place] # 2.3 H 2.1 H Eos # 0.0 0.0 Baso # 0.2 0.3 H Neutrophils % (Manual) 87 H Lymphocytes % (Manual) 8 L Monocytes % (Manual) 5 Nucleated RBC % 2 H Platelet Estimate Normal Polychromasia Slight Hypochromasia (manual) Marked Poikilocytosis (manual Slight Anisocytosis (manual) Slight Microcytosis (manual) Slight Macrocytosis (manual) Slight Target Cells Slight Retic Count 1.5 Puncture Site pCO2 pO2 HCO3 ABG pH ABG Total CO2 ABG O2 Saturation ABG Base Excess ABG Hemoglobin ABG Carboxyhemoglobin POC ABG HHb (Measured) ABG Methemoglobin Sj Test A-a O2 Difference Respiratory Index Hgb O2 Saturation Vent Mode Mechanical Rate FiO2 Inspiratory BiPAP Expiratory BiPAP Crit Value Called To Crit Value Called By Crit Value Read Back Blood Gas Notified Time Sodium 147 Potassium 4.3 Chloride 106 Carbon Dioxide 29 Anion Gap 16 BUN 81 H Creatinine 3.0 H Est GFR ( Amer) 18 Est GFR (Non-Af Amer) 15 POC Glucose (mg/dL) Random Glucose 115 H Calcium 7.8 L Phosphorus 8.3 H Magnesium 2.8 H Ferritin 85.0 Total Bilirubin 0.7 AST 34 ALT 39 Alkaline Phosphatase 33 L Total Protein 4.5 L Albumin 2.5 L Globulin 2.0 L Albumin/Globulin Ratio 1.3 Vitamin B12 823 Folate > 20.0 Blood Type Blood Type Confirm Antibody Screen 06/01/17 06/01/17 06/01/17 06:53 09:23 09:25 WBC RBC Hgb Hct MCV MCH MCHC RDW Plt Count MPV Neut % (Auto) Lymph % (Auto) [place] % (Auto) Eos % (Auto) Baso % (Auto) Neut # Lymph # [place] # Eos # Baso # Neutrophils % (Manual) Lymphocytes % (Manual) Monocytes % (Manual) Nucleated RBC % Platelet Estimate Polychromasia Hypochromasia (manual) Poikilocytosis (manual Anisocytosis (manual) Microcytosis (manual) Macrocytosis (manual) Target Cells Retic Count Puncture Site R/rad pCO2 43 pO2 104 H HCO3 28.5 H ABG pH 7.44 ABG Total CO2 30.5 H ABG O2 Saturation 99.4 H ABG Base Excess 4.6 H ABG Hemoglobin 7.6 L ABG Carboxyhemoglobin 1.8 H POC ABG HHb (Measured) 0.6 ABG Methemoglobin 1.5 Sj Test P0s A-a O2 Difference 127.0 Respiratory Index 1.2 Hgb O2 Saturation 96.1 Vent Mode Bipap Mechanical Rate 12 FiO2 40.0 Inspiratory BiPAP 12 Expiratory BiPAP 8 Crit Value Called To Dr holliday Crit Value Called By Alberto hurst Crit Value Read Back Y Blood Gas Notified Time 940 Sodium Potassium Chloride Carbon Dioxide Anion Gap BUN Creatinine Est GFR ( Amer) Est GFR (Non-Af Amer) POC Glucose (mg/dL) 163 H Random Glucose Calcium Phosphorus Magnesium Ferritin Total Bilirubin AST ALT Alkaline Phosphatase Total Protein Albumin Globulin Albumin/Globulin Ratio Vitamin B12 Folate Blood Type A POSITIVE Blood Type Confirm A POSITIVE Antibody Screen Negative Assessment & Plan (1) Acute respiratory failure Status: Acute (2) Chronic a-fib Status: Acute (3) Dementia Status: Acute (4) CEZAR (acute kidney injury) Status: Acute (5) Acute respiratory failure with hypoxia and hypercapnia Status: Acute (6) History of hypertension Status: Acute - Assessment and Plan (Free Text) Plan: stop LOWELL I support hemodynamics with IV fluids check ua, urine na renal US when stable serial chemistries
--- NOTE | 2017-06-01 13:35 | RAD ---
Chest x-ray single frontal view History: Intubation. Comparison: 06/01/2017 Findings: Endotracheal tube extending into the mid thoracic trachea. Right central venous catheter with tip extending to the cavoatrial junction. Moderate venous congestion. Prominent patchy bibasilar airspace opacities ; left greater than right. Small left pleural effusion. Cardiomegaly. Degenerative changes in the spine and shoulders. Impression: Endotracheal tube extending into the mid thoracic trachea. Right central venous catheter with tip extending to the cavoatrial junction. Moderate venous congestion. Prominent patchy bibasilar airspace opacities ; left greater than right. Small left pleural effusion. Cardiomegaly.
[2017-06-01] MEDS: Pantoprazole 40 mg Susp UD NG SCH (13:44)
[2017-06-01 14:22] LABS: ABG MECHANICAL RATE 20; ARTERIAL BLOOD HGB O2 SAT 96.7 % (95.0-98.0); ATERIAL BLOOD GAS PEEP 5; CARBOXYHEMOGLOBIN 1.5 % (0.5-1.5); DRAW SITE A-LINE; HHB 0.3 % (0.0-5.0); METHEMOGLOBIN 1.5 % (0.0-3.0)
--- NOTE | 2017-06-01 14:22 | CP.PCM.PN ---
Subjective - Date & Time of Evaluation Date of Evaluation: 06/01/17 Time of Evaluation: 11:30 - Subjective Subjective: Patient seen and examined. On BiPAP, very lethargic, tachypneic extubated yesterday Afebrile Swelling of left arm noted with ecchymosis Poor urine output Objective - Vital Signs/Intake and Output Vital Signs (last 24 hours): Temp Pulse Resp BP Pulse Ox 98.5 F 108 H 20 75/43 L 100 06/01/17 13:30 06/01/17 13:30 06/01/17 13:30 06/01/17 13:43 06/01/17 12:01 Intake and Output: 06/01/17 06/01/17 06:59 18:59 Intake Total 100 150 Output Total 80 15 Balance 20 135 - Medications Medications: Current Medications Acetylcysteine (Acetylcysteine 20%) 4 ml INH RQ6 [facility] Last Admin: 06/01/17 08:17 Dose: 4 ml Albuterol/Ipratropium (Duoneb 3 Mg/0.5 Mg (3 Ml) Ud) 3 ml INH RQ6 [facility] Last Admin: 06/01/17 08:18 Dose: 3 ml Calcium Acetate (Phoslo) 667 mg PO TIDCC [facility] Diltiazem HCl (Cardizem) 30 mg PO Q6H [facility] Last Admin: 06/01/17 13:43 Dose: Not Given Dorzolamide HCl (Trusopt) 10 ml OU TID [facility] Last Admin: 06/01/17 10:27 Dose: 1 drop Furosemide (Lasix) 40 mg IVP DAILY [facility] Last Admin: 06/01/17 13:43 Dose: Not Given Piperacillin Sod/Tazobactam Sod (Zosyn 3.375 Gm Iv Premix) 3.375 gm in 50 mls @ 100 mls/hr IVPB Q8H [facility] Last Admin: 06/01/17 13:46 Dose: 100 mls/hr Sodium Chloride (Sodium Chloride 0.9%) 1,000 mls @ 50 mls/hr IV .Q20H [facility] Last Admin: 06/01/17 10:24 Dose: 50 mls/hr Norepinephrine Bitartrate 4 mg (/ Sodium Chloride) 254 mls @ 15.24 mls/hr IV .[id number] PRN; Protocol; 4 MCG/MIN PRN Reason: TITRATE PER MD ORDER Last Admin: 06/01/17 13:35 Dose: 4 mcg/min, 15.24 mls/hr Montelukast Sodium (Singulair) 10 mg PO DAILY [facility] Last Admin: 06/01/17 10:23 Dose: Not Given Multivitamins (Hexavitamin) 1 tab PO DAILY [facility] Last Admin: 06/01/17 10:23 Dose: Not Given Nystatin (Nystop Topical Powder) 1 applic TOP TID [facility] Last Admin: 06/01/17 13:43 Dose: 1 pow Pantoprazole Sodium (Protonix Susp) 40 mg NG DAILY [facility] Last Admin: 06/01/17 13:44 Dose: 40 mg Rosuvastatin Calcium (Crestor) 10 mg PO HS [facility] Last Admin: 05/31/17 22:02 Dose: Not Given - Labs Labs: 06/01/17 06:53 06/01/17 06:00 - Head Exam Head Exam: ATRAUMATIC, NORMOCEPHALIC - ENT Exam ENT Exam: Mucous Membranes Moist - Neck Exam Neck Exam: Normal Inspection - Respiratory Exam Respiratory Exam: Decreased Breath Sounds - Cardiovascular Exam Cardiovascular Exam: Irregular Rhythm - GI/Abdominal Exam GI & Abdominal Exam: Soft, Normal Bowel Sounds - Extremities Exam Extremities Exam: Pedal Edema - Neurological Exam Neurological Exam: Altered Assessment and Plan (1) Acute respiratory failure with hypoxia and hypercapnia Assessment & Plan: Patient re intubated and placed ventilatory support transfuse packed RBCs Consider hemodialysis continue antibiotics Anticoagulation discontinued Followup ABG and chest X.ay Status: Acute (2) Atrial fibrillation, new onset Status: Acute (3) COPD exacerbation Status: Acute
[2017-06-01 14:24] LABS: POTASSIUM 4.1 mmol/L (3.6-5.2)
[2017-06-01 14:25] LABS: ALB/GLOB RATIO 1.2 (1.0-2.1); BILIRUBIN,TOTAL 0.8 mg/dL (0.2-1.3); CALCIUM 6.8 mg/dl (8.6-10.4); MAGNESIUM 2.7 mg/dL (1.6-2.3); PHOSPHOROUS 9.6 mg/dL (2.5-4.5); TOTAL PROTEIN 4.3 g/dL (6.3-8.3)
--- NOTE | 2017-06-01 14:48 | CP.PCM.PN ---
Subjective - Date & Time of Evaluation Date of Evaluation: 06/01/17 Time of Evaluation: 14:30 - Subjective Subjective: Patient was seen and examined by me Patient was extubated to BIPAP yesterday but this morning had developed shallow breathing and had ongoing anemia which required the patient be reintubated. Hgb also decreased as well and she is now being transfused 1 unit of PRBC. Objective - Vital Signs/Intake and Output Vital Signs (last 24 hours): Temp Pulse Resp BP Pulse Ox 98.3 F 110 H 20 73/45 L 100 06/01/17 14:45 06/01/17 14:45 06/01/17 14:45 06/01/17 14:45 06/01/17 12:01 Intake and Output: 06/01/17 06/01/17 06:59 18:59 Intake Total 100 150 Output Total 80 15 Balance 20 135 - Medications Medications: Current Medications Acetylcysteine (Acetylcysteine 20%) 4 ml INH RQ6 [facility] Last Admin: 06/01/17 14:38 Dose: 4 ml Albuterol/Ipratropium (Duoneb 3 Mg/0.5 Mg (3 Ml) Ud) 3 ml INH RQ6 [facility] Last Admin: 06/01/17 14:38 Dose: 3 ml Calcium Acetate (Phoslo) 667 mg PO TIDCC [facility] Diltiazem HCl (Cardizem) 30 mg PO Q6H [facility] Last Admin: 06/01/17 13:43 Dose: Not Given Dorzolamide HCl (Trusopt) 10 ml OU TID [facility] Last Admin: 06/01/17 10:27 Dose: 1 drop Furosemide (Lasix) 40 mg IVP DAILY [facility] Last Admin: 06/01/17 13:43 Dose: Not Given Piperacillin Sod/Tazobactam Sod (Zosyn 3.375 Gm Iv Premix) 3.375 gm in 50 mls @ 100 mls/hr IVPB Q8H [facility] Last Admin: 06/01/17 13:46 Dose: 100 mls/hr Sodium Chloride (Sodium Chloride 0.9%) 1,000 mls @ 50 mls/hr IV .Q20H [facility] Last Admin: 06/01/17 10:24 Dose: 50 mls/hr Norepinephrine Bitartrate 4 mg (/ Sodium Chloride) 254 mls @ 15.24 mls/hr IV .[id number] PRN; Protocol; 4 MCG/MIN PRN Reason: TITRATE PER MD ORDER Last Admin: 06/01/17 13:35 Dose: 4 mcg/min, 15.24 mls/hr Montelukast Sodium (Singulair) 10 mg PO DAILY [facility] Last Admin: 06/01/17 10:23 Dose: Not Given Multivitamins (Hexavitamin) 1 tab PO DAILY [facility] Last Admin: 06/01/17 10:23 Dose: Not Given Nystatin (Nystop Topical Powder) 1 applic TOP TID [facility] Last Admin: 06/01/17 13:43 Dose: 1 pow Pantoprazole Sodium (Protonix Susp) 40 mg NG DAILY [facility] Last Admin: 06/01/17 13:44 Dose: 40 mg Rosuvastatin Calcium (Crestor) 10 mg PO HS [facility] Last Admin: 05/31/17 22:02 Dose: Not Given - Labs Labs: 06/01/17 06:53 06/01/17 14:00 - Constitutional Appears: Unkempt, Chronically Ill - Head Exam Head Exam: NORMAL INSPECTION - Respiratory Exam Respiratory Exam: Decreased Breath Sounds, Rhonchi - Cardiovascular Exam Cardiovascular Exam: REGULAR RHYTHM - Neurological Exam Neurological Exam: Altered, Awake Neuro motor strength exam: Left Upper Extremity: 4, Right Upper Extremity: 4 - Psychiatric Exam Psychiatric exam: Anxious, Depressed - Skin Skin Exam: Normal Color, Warm Attending/Attestation - Attestation I have personally seen and examined this patient.: Yes I have fully participated in the care of the patient.: Yes I have reviewed all pertinent clinical information, including history, physical exam and plan: Yes Notes (Text): Assessment and Plan (1) Acute respiratory failure with hypoxia and hypercapnia 06/01 Now re-intubated after patient became hypoxcic 05/30: Currently on weaning trial. 05/29: Currently patient remains on mechanical ventilator. Review of the blood gases show no longer acidemic or CO2 retaining. Hopefully can be weaned soon. Likey complications from CO2 and CHF as well as pneumonia. (2) Pneumonia - questionable area on the right lower lobe seen on CT done on 05/30: WBC is only decreased slightly. There is still large left shift. Afebrile. IV Zosyn started on 05/26 and IV Vanco started 05/27. 05/29: Remains on IV abx Zosyn and Vancomycin - the WBC is 14. Currently afebrile and also blood and sputum cultures are negative (3) COPD exacerbation 05/29: On nebulizers and twice a day solumedrol (4) Atrial fibrillation, new onset 05/30: HR has been in the 90s atrial fibrillation. Rate controlled now. Continue Cardizem by mouth for rate control. Patient is on therapeutic anticoagulation with Lovenox as there is a high CHADs score (5) CHF (congestive heart failure) Assessment & Plan: 05/29: Continue following CXRAYs, urine ins and outs. Patient is getting lasix BID and also is on vasotech. (6) History of hyperlipidemia Assessment & Plan: Continue statin. (7) History of hypertension Assessment & Plan: Continue current medication. Attending/Attestation 06/01/17 14:52 06/01/17 14:53
[2017-06-01 17:02] LABS: RBC URINE 702 /hpf (0-3); URINE BACTERIA FEW (<OCC); URINE BILIRUBIN NEGATIVE (NEGATIVE); URINE BLOOD 3+ (NEGATIVE); URINE COLOR Amber (YELLOW); URINE GLUCOSE (UA) 1+ mg/dL (Normal); URINE KETONE NEGATIVE (NEGATIVE); URINE LEUKOCYTE ESTERASE 1+ Leu/uL (Negative); URINE PROTEIN 2+ mg/dL (NEGATIVE); URINE UROBILINOGEN NORMAL mg/dL (0.2-1.0); WBC URINE 24 /hpf (0-5)
[2017-06-01] MEDS: Sodium Chloride 0.9% 1,000 ML IV SCH (18:39)
[2017-06-01 18:59] LABS: BASO # 0.2 K/uL (0.0-0.2); BASO % 0.5 % (0.0-2.0); EOS # 0.1 K/uL (0.0-0.7); EOS % 0.2 % (0.0-4.0); HEMATOCRIT 27.7 % (34.0-47.0); LYMPH # 3.6 K/uL (1.0-4.3); LYMPH % 9.6 % (20.0-40.0); MEAN CELL VOLUME 86.3 fL (81.0-99.0); MEAN CORPUSCULAR HEMOGLOBIN 27.6 pg (27.0-31.0); MEAN CORPUSCULAR HGB CONC 31.9 g/dL (33.0-37.0); MEAN PLATELET VOLUME 9.4 fL (7.2-11.7); MONO # 2.1 K/uL (0.0-0.8); MONO % 5.5 % (0.0-10.0); PLATELET COUNT 198 K/uL (130-400); RED CELL DISTRIBUTION WIDTH 16.2 % (11.5-14.5)
[2017-06-01 19:08] LABS: POTASSIUM 3.6 mmol/L (3.6-5.2)
[2017-06-01 19:10] LABS: ALB/GLOB RATIO 1.2 (1.0-2.1); BILIRUBIN,TOTAL 1.3 mg/dL (0.2-1.3); TOTAL PROTEIN 4.8 g/dL (6.3-8.3)
[2017-06-01 19:11] LABS: CALCIUM 7.2 mg/dl (8.6-10.4); MAGNESIUM 2.7 mg/dL (1.6-2.3); PHOSPHOROUS 9.3 mg/dL (2.5-4.5)
[2017-06-01 19:18] LABS: WHITE BLOOD COUNT 37.6 K/uL (4.8-10.8)
--- NOTE | 2017-06-01 21:44 | CP.PCM.PN ---
Subjective - Date & Time of Evaluation Date of Evaluation: 06/01/17 Time of Evaluation: 10:30 - Subjective Subjective: Patient seen and evaluated On BiPAP Elevated WBC, Anemia Physical examination - Head Exam Head Exam: ATRAUMATIC, NORMAL INSPECTION - Eye Exam Eye Exam: PERRL - ENT Exam ENT Exam: Mucous Membranes Moist - Neck Exam Neck Exam: Normal Inspection - Respiratory Exam Respiratory Exam: Decreased Breath Sounds - Cardiovascular Exam Cardiovascular Exam: Irregular Rhythm, +S1, +S2 - GI/Abdominal Exam GI & Abdominal Exam: Normal Bowel Sounds - Skin Skin Exam: Warm Objective - Vital Signs/Intake and Output Vital Signs (last 24 hours): Temp Pulse Resp BP Pulse Ox 98.5 F 130 H 20 94/44 L 97 06/01/17 17:10 06/01/17 20:58 06/01/17 20:58 06/01/17 21:15 06/01/17 20:58 Intake and Output: 06/01/17 06/02/17 18:59 06:59 Intake Total 2608.4 418.1 Output Total 30 5 Balance 2578.4 413.1 - Medications Medications: Current Medications Acetylcysteine (Acetylcysteine 20%) 4 ml INH RQ6 [facility] Last Admin: 06/01/17 19:40 Dose: 4 ml Albuterol/Ipratropium (Duoneb 3 Mg/0.5 Mg (3 Ml) Ud) 3 ml INH RQ6 [facility] Last Admin: 06/01/17 19:40 Dose: 3 ml Calcium Acetate (Phoslo) 667 mg PO TIDCC [facility] Last Admin: 06/01/17 18:38 Dose: 667 mg Diltiazem HCl (Cardizem) 30 mg PO Q6H [facility] Last Admin: 06/01/17 18:35 Dose: Not Given Dorzolamide HCl (Trusopt) 10 ml OU TID [facility] Last Admin: 06/01/17 18:38 Dose: 1 drop Furosemide (Lasix) 40 mg IVP DAILY [facility] Last Admin: 06/01/17 13:43 Dose: Not Given Piperacillin Sod/Tazobactam Sod (Zosyn 3.375 Gm Iv Premix) 3.375 gm in 50 mls @ 100 mls/hr IVPB Q8H [facility] Last Admin: 06/01/17 20:45 Dose: 100 mls/hr Norepinephrine Bitartrate 4 mg (/ Sodium Chloride) 254 mls @ 15.24 mls/hr IV .[id number] PRN; Protocol; 4 MCG/MIN PRN Reason: TITRATE PER MD ORDER Last Admin: 06/01/17 21:15 Dose: 7.5 mcg/min, 28.57 mls/hr Sodium Chloride (Sodium Chloride 0.9%) 1,000 mls @ 150 mls/hr IV .Q6H40M [facility] Last Admin: 06/01/17 18:39 Dose: 150 mls/hr Linezolid (Zyvox 600mg/300ml D5w) 600 mg in 300 mls @ 200 mls/hr IVPB Q12 [facility] Metronidazole (Flagyl) 250 mg PO Q8H [facility] Last Admin: 06/01/17 21:37 Dose: 250 mg Montelukast Sodium (Singulair) 10 mg PO DAILY [facility] Last Admin: 06/01/17 10:23 Dose: Not Given Multivitamins (Hexavitamin) 1 tab PO DAILY [facility] Last Admin: 06/01/17 10:23 Dose: Not Given Nystatin (Nystop Topical Powder) 1 applic TOP TID [facility] Last Admin: 06/01/17 18:38 Dose: 1 pow Pantoprazole Sodium (Protonix Susp) 40 mg NG DAILY [facility] Last Admin: 06/01/17 13:44 Dose: 40 mg Rosuvastatin Calcium (Crestor) 10 mg PO HS [facility] Last Admin: 06/01/17 21:37 Dose: 10 mg - Labs Labs: 06/01/17 18:54 06/01/17 18:54 Assessment and Plan - Assessment and Plan (Free Text) Assessment: (1) Atrial fibrillation, new onset Assessment & Plan: Rate controlled now. Continue Cardizem by mouth for rate control. (2) CHF (congestive heart failure) Assessment & Plan: IV Lasix (3) History of hyperlipidemia Assessment & Plan: Continue statin. (4) History of hypertension Assessment & Plan: Continue current medication. (5) Acute respiratory failure with hypoxia and hypercapnia On Mechanical ventilation (6) Pneumonia Assessment & Plan: ID on case on antibiotics (7) COPD exacerbation Assessment & Plan: On nebulizers
[2017-06-01] MEDS: Linezolid 600 mg in D5W 300 ml 600 MG/300 ML BAG IVPB SCH (21:48)
[2017-06-01 22:37] LABS: NEUTROPHIL 85 % (50-75); TOTAL CELLS COUNTED 100
[2017-06-01 22:38] LABS: LARGE PLATELETS PRESENT; SMUDGE CELLS PRESENT
[2017-06-02] MEDS: Acetylcysteine 20% Inhal Soln (4ml) INH SCH ×4 (01:31→20:14)
[2017-06-02] MEDS: Albuterol-Ipratrop 3 mg / 0.5 (3 ml) UD INH SCH ×4 (01:31→20:14)
[2017-06-02] MEDS: Sodium Chloride 0.9% 1,000 ML IV SCH ×7 (02:04→22:49)
[2017-06-02] MEDS: Piperacill/Tazo 3.375gm in Dex 3.375 GM/50 ML BAG IVPB SCH ×2 (03:41→11:44)
[2017-06-02 06:27] LABS: BASO # 0.2 K/uL (0.0-0.2); BASO % 0.5 % (0.0-2.0); EOS # 0.7 K/uL (0.0-0.7); EOS % 1.9 % (0.0-4.0); HEMATOCRIT 23.7 % (34.0-47.0); LYMPH # 3.2 K/uL (1.0-4.3); LYMPH % 8.6 % (20.0-40.0); MEAN CELL VOLUME 86.5 fL (81.0-99.0); MEAN CORPUSCULAR HEMOGLOBIN 28.2 pg (27.0-31.0); MEAN CORPUSCULAR HGB CONC 32.6 g/dL (33.0-37.0); MEAN PLATELET VOLUME 10.4 fL (7.2-11.7); MONO # 2.3 K/uL (0.0-0.8); MONO % 6.3 % (0.0-10.0); NRBC % 0.6 % (0.0-2.0); PLATELET COUNT 185 K/uL (130-400); RED CELL DISTRIBUTION WIDTH 16.4 % (11.5-14.5)
[2017-06-02 06:37] LABS: POTASSIUM 4.1 mmol/L (3.6-5.2)
[2017-06-02 06:39] LABS: BILIRUBIN,TOTAL 1.2 mg/dL (0.2-1.3)
[2017-06-02 06:40] LABS: ALB/GLOB RATIO 1.1 (1.0-2.1); CALCIUM 6.9 mg/dl (8.6-10.4); MAGNESIUM 2.6 mg/dL (1.6-2.3); PHOSPHOROUS 9.5 mg/dL (2.5-4.5); TOTAL PROTEIN 4.2 g/dL (6.3-8.3)
[2017-06-02 06:43] LABS: WHITE BLOOD COUNT 37.4 K/uL (4.8-10.8)
--- NOTE | 2017-06-02 08:18 | CP.CCUPN ---
<Chip Srinivasan - Last Filed: 06/02/17 15:46> CCU Subjective - Physician Review Subjective (Free Text): Patient seen and examined at bedside. Patient is intubated and sedated. Patient was re-intubated yesterday. She appears more responsive than yesterday, responding to verbal stimuli. Per nursing staff, overnight patient's A line fell out and patient had loose bowel movement - c.diff negative. She remains easily arousable. Full ROS not obtained due to current status. Case discussed with house-staff; medical records and chart reviewed and labs discussed. 06/02/17 15:46 CCU Objective - Vital Signs / Intake & Output Vital Signs (Last 4 hours): Vital Signs Pulse Resp BP Pulse Ox 06/02/17 06:30 107 H 21 100 06/02/17 06:04 104 H 20 111/41 L 100 06/02/17 06:00 111 H 20 100 06/02/17 05:49 106 H 20 119/42 L 100 06/02/17 05:34 107 H 20 113/45 L 100 06/02/17 05:30 109 H 21 100 06/02/17 05:20 106 H 20 116/32 L 100 06/02/17 05:04 111 H 21 100/47 L 100 06/02/17 05:01 107 H 16 90/51 L 99 06/02/17 05:00 107 H 21 100 06/02/17 04:49 103 H 17 92/56 L 100 06/02/17 04:36 111 H 21 107/32 L 100 06/02/17 04:34 106 H 19 117/30 L 99 06/02/17 04:30 114 H 22 100 06/02/17 04:19 106 H 21 109/45 L 100 Intake and Output (Last 8hrs): Intake & Output 06/01/17 06/02/17 06/02/17 22:59 06:59 14:59 Intake Total 1892.0 1394.0 Output Total 15 80 Balance 1877.0 1314.0 Weight 264 lb Intake: IV 244 20 Intake, IV Amount 1323.0 1374.0 Right Distal Port 1100 1250 Internal Jugular Right Medial Port 223.0 124.0 Internal Jugular Blood Product 325 Red Blood Cells Cpd As1 325 Lr Unit [id number] Output: Urine 15 80 Urethral (Saenz) 15 80 Other: # Bowel Movements 1 - Physical Exam Head: Positive for: Atraumatic, Normocephalic Pupils: Positive for: PERRL Extroacular Muscles: Positive for: EOMI Mouth: Positive for: Moist Mucous Membranes Respiratory/Chest: Positive for: Decreased Breath Sounds (at bases) Cardiovascular: Positive for: Regular Rate and Rhythm, Normal S1, S2 Abdomen: Positive for: Normal Bowel Sounds. Negative for: Tenderness Upper Extremity: Positive for: Edema, Swelling, Other (ecchymosis b/l; faint pulses bilaterally) Lower Extremity: Positive for: NORMAL PULSES Neurological: Positive for: GCS=15, Other (follows commands) Skin: Positive for: Other (Ecchymosis on bilateral upper extremities) Psychiatric: Positive for: Alert - Medications Active Medications: Active Medications Generic Name Dose Route Start Last Admin Trade Name Freq PRN Reason Stop Dose Admin Acetylcysteine 4 ml 05/25/17 09:15 06/02/17 01:31 Acetylcysteine 20% INH 4 ml RQ6 ALISA Administration Albuterol/Ipratropium 3 ml 05/28/17 18:45 06/02/17 01:31 Duoneb 3 Mg/0.5 Mg (3 Ml) Ud INH 3 ml RQ6 ALISA Administration Calcium Acetate 667 mg 06/01/17 17:00 06/02/17 07:42 Phoslo PO 667 mg TIDCC ALISA Administration Diltiazem HCl 30 mg 05/26/17 12:00 06/02/17 06:28 Cardizem PO Not Given Q6H ALISA Dorzolamide HCl 10 ml 05/22/17 18:00 06/01/17 18:38 Trusopt OU 1 drop TID ALISA Administration Furosemide 40 mg 06/01/17 10:00 06/01/17 13:43 Lasix IVP Not Given DAILY ALISA Piperacillin Sod/Tazobactam Sod 3.375 gm in 50 mls @ 100 mls/hr 05/31/17 12: 30 06/02/17 03:41 Zosyn 3.375 Gm Iv Premix IVPB 100 mls/hr Q8H ALISA Administration Norepinephrine Bitartrate 4 mg 254 mls @ 15.24 mls/hr 06/01/17 12:50 01:00 / Sodium Chloride IV 4 mcg/min .[id number] PRN 15.24 mls/hr TITRATE PER MD ORDER Titration Protocol 4 MCG/MIN Sodium Chloride 1,000 mls @ 150 mls/hr 06/01/17 16:49 06/02/17 06:28 Sodium Chloride 0.9% IV Not Given .[id number] ALISA Linezolid 600 mg in 300 mls @ 200 mls/hr 06/01/17 22:00 06/01/17 21:48 Zyvox 600mg/300ml D5w IVPB 200 mls/hr Q12 ALISA Administration Metronidazole 250 mg 06/01/17 21:00 06/02/17 06:28 Flagyl PO 250 mg Q8H ALISA Administration Montelukast Sodium 10 mg 05/23/17 10:00 06/01/17 10:23 Singulair PO Not Given DAILY ALISA Multivitamins 1 tab 05/22/17 13:45 06/01/17 10:23 Hexavitamin PO Not Given DAILY ALISA Nystatin 1 applic 05/27/17 10:30 06/01/17 18:38 Nystop Topical Powder TOP 1 pow TID ALISA Administration Pantoprazole Sodium 40 mg 05/23/17 10:00 06/01/17 13:44 Protonix Susp NG 40 mg DAILY ALISA Administration Rosuvastatin Calcium 10 mg 05/22/17 22:00 06/01/17 21:37 Crestor PO 10 mg HS ALISA Administration - Patient Studies Lab Studies: Lab Studies 06/02/17 06/02/17 06/01/17 Range/Units 06:19 06:19 21:59 WBC 37.4 H* (4.8-10.8) K/uL RBC 2.75 L (3.80-5.20) Mil/uL Hgb 7.7 L (11.0-16.0) g/dL Hct 23.7 L (34.0-47.0) % MCV 86.5 (81.0-99.0) fL MCH 28.2 (27.0-31.0) pg MCHC 32.6 L (33.0-37.0) g/dL RDW 16.4 H (11.5-14.5) % Plt Count 185 (130-400) K/uL MPV 10.4 (7.2-11.7) fL Neut % (Auto) 82.7 H (50.0-75.0) % Lymph % (Auto) 8.6 L (20.0-40.0) % Gibson % (Auto) 6.3 (0.0-10.0) % Eos % (Auto) 1.9 (0.0-4.0) % Baso % (Auto) 0.5 (0.0-2.0) % Neut # 31.0 H (1.8-7.0) K/uL Lymph # 3.2 (1.0-4.3) K/uL Gibson # 2.3 H (0.0-0.8) K/uL Eos # 0.7 (0.0-0.7) K/uL Baso # 0.2 (0.0-0.2) K/uL Neutrophils % (Manual) (50-75) % Band Neutrophils % (0-2) % Lymphocytes % (Manual) (20-40) % Monocytes % (Manual) (0-10) % Nucleated RBC % (0-0) % Hypersegmented Polys Smudge Cells Platelet Estimate (NORMAL) Large Platelets Polychromasia Hypochromasia (manual) Poikilocytosis (manual Anisocytosis (manual) Microcytosis (manual) Macrocytosis (manual) Target Cells Puncture Site pCO2 (35-45) mm/Hg pO2 (80-100) mm/Hg HCO3 (21-28) mmol/L ABG pH (7.35-7.45) ABG Total CO2 (22-28) mmol/L ABG O2 Saturation (95-98) % ABG Base Excess (-2.0-3.0) mmol/L ABG Hemoglobin (11.7-17.4) g/dL ABG Carboxyhemoglobin (0.5-1.5) % POC ABG HHb (Measured) (0.0-5.0) % ABG Methemoglobin (0.0-3.0) % Sj Test A-a O2 Difference mm/Hg Respiratory Index Hgb O2 Saturation (95.0-98.0) % Vent Mode Mechanical Rate FiO2 % Tidal Volume PEEP Inspiratory BiPAP Expiratory BiPAP Crit Value Called To Crit Value Called By Crit Value Read Back Blood Gas Notified Time Sodium 146 (132-148) mmol/L Potassium 4.1 (3.6-5.2) mmol/L Chloride 109 H (98-107) mmol/L Carbon Dioxide 22 (22-30) mmol/L Anion Gap 19 (10-20) BUN 100 H* (7-17) mg/dL Creatinine 3.7 H (0.7-1.2) MG/DL Est GFR ( Amer) 14 Est GFR (Non-Af Amer) 12 POC Glucose (mg/dL) (65-110) mg/dL Random Glucose 106 H (65-105) mg/dL Calcium 6.9 L (8.6-10.4) mg/dl Phosphorus 9.5 H (2.5-4.5) mg/dL Magnesium 2.6 H (1.6-2.3) mg/dL Total Bilirubin 1.2 (0.2-1.3) mg/dL AST 93 H (14-36) U/L ALT 74 H (9-52) U/L Alkaline Phosphatase 33 L (38-126) U/L Total Protein 4.2 L (6.3-8.3) g/dL Albumin 2.2 L (3.5-5.0) g/dL Globulin 2.0 L (2.2-3.9) gm/dL Albumin/Globulin Ratio 1.1 (1.0-2.1) Urine Color (YELLOW) Urine Clarity (Clear) Urine pH (5.0-8.0) Ur Specific Suther[place] (1.003-1.030) Urine Protein (NEGATIVE) mg/dL Urine Glucose (UA) (Normal) mg/dL Urine Ketones (NEGATIVE) mg/dL Urine Blood (NEGATIVE) Urine Nitrate (NEGATIVE) Urine Bilirubin (NEGATIVE) Urine Urobilinogen (0.2-1.0) mg/dL Ur Leukocyte Esterase (Negative) Monique/uL Urine WBC (Auto) (0-5) /hpf Urine RBC (Auto) (0-3) /hpf Ur Squamous Epith Cells (0-5) /hpf Urine Bacteria (<OCC) Ur Random Sodium mmol/L C. difficile Ag & Toxin Negative (NEGATIVE) Blood Type Blood Type Confirm Antibody Screen 06/01/17 06/01/17 06/01/17 Range/Units 18:54 18:54 16:29 WBC 37.6 H* (4.8-10.8) K/uL RBC 3.21 L (3.80-5.20) Mil/uL Hgb 8.9 L D (11.0-16.0) g/dL Hct 27.7 L (34.0-47.0) % MCV 86.3 (81.0-99.0) fL MCH 27.6 (27.0-31.0) pg MCHC 31.9 L (33.0-37.0) g/dL RDW 16.2 H (11.5-14.5) % Plt Count 198 (130-400) K/uL MPV 9.4 (7.2-11.7) fL Neut % (Auto) 84.2 H (50.0-75.0) % Lymph % (Auto) 9.6 L (20.0-40.0) % Gibson % (Auto) 5.5 (0.0-10.0) % Eos % (Auto) 0.2 (0.0-4.0) % Baso % (Auto) 0.5 (0.0-2.0) % Neut # 31.6 H (1.8-7.0) K/uL Lymph # 3.6 (1.0-4.3) K/uL Gibson # 2.1 H (0.0-0.8) K/uL Eos # 0.1 (0.0-0.7) K/uL Baso # 0.2 (0.0-0.2) K/uL Neutrophils % (Manual) 85 H (50-75) % Band Neutrophils % 4 H (0-2) % Lymphocytes % (Manual) 7 L (20-40) % Monocytes % (Manual) 4 (0-10) % Nucleated RBC % (0-0) % Hypersegmented Polys Present Smudge Cells Present Platelet Estimate Normal (NORMAL) Large Platelets Present Polychromasia Hypochromasia (manual) Slight Poikilocytosis (manual Slight Anisocytosis (manual) Slight Microcytosis (manual) Slight Macrocytosis (manual) Target Cells Puncture Site pCO2 (35-45) mm/Hg pO2 (80-100) mm/Hg HCO3 (21-28) mmol/L ABG pH (7.35-7.45) ABG Total CO2 (22-28) mmol/L ABG O2 Saturation (95-98) % ABG Base Excess (-2.0-3.0) mmol/L ABG Hemoglobin (11.7-17.4) g/dL ABG Carboxyhemoglobin (0.5-1.5) % POC ABG HHb (Measured) (0.0-5.0) % ABG Methemoglobin (0.0-3.0) % Sj Test A-a O2 Difference mm/Hg Respiratory Index Hgb O2 Saturation (95.0-98.0) % Vent Mode Mechanical Rate FiO2 % Tidal Volume PEEP Inspiratory BiPAP Expiratory BiPAP Crit Value Called To Crit Value Called By Crit Value Read Back Blood Gas Notified Time Sodium 149 H (132-148) mmol/L Potassium 3.6 (3.6-5.2) mmol/L Chloride 112 H (98-107) mmol/L Carbon Dioxide 25 (22-30) mmol/L Anion Gap 16 (10-20) BUN 97 H (7-17) mg/dL Creatinine 3.5 H (0.7-1.2) MG/DL Est GFR ( Amer) 15 Est GFR (Non-Af Amer) 13 POC Glucose (mg/dL) (65-110) mg/dL Random Glucose 134 H (65-105) mg/dL Calcium 7.2 L (8.6-10.4) mg/dl Phosphorus 9.3 H (2.5-4.5) mg/dL Magnesium 2.7 H (1.6-2.3) mg/dL Total Bilirubin 1.3 (0.2-1.3) mg/dL AST 108 H D (14-36) U/L ALT 84 H D (9-52) U/L Alkaline Phosphatase 36 L (38-126) U/L Total Protein 4.8 L (6.3-8.3) g/dL Albumin 2.6 L (3.5-5.0) g/dL Globulin 2.2 (2.2-3.9) gm/dL Albumin/Globulin Ratio 1.2 (1.0-2.1) Urine Color (YELLOW) Urine Clarity (Clear) Urine pH (5.0-8.0) Ur Specific [place] (1.003-1.030) Urine Protein (NEGATIVE) mg/dL Urine Glucose (UA) (Normal) mg/dL Urine Ketones (NEGATIVE) mg/dL Urine Blood (NEGATIVE) Urine Nitrate (NEGATIVE) Urine Bilirubin (NEGATIVE) Urine Urobilinogen (0.2-1.0) mg/dL Ur Leukocyte Esterase (Negative) Monique/uL Urine WBC (Auto) (0-5) /hpf Urine RBC (Auto) (0-3) /hpf Ur Squamous Epith Cells (0-5) /hpf Urine Bacteria (<OCC) Ur Random Sodium 17 mmol/L C. difficile Ag & Toxin (NEGATIVE) Blood Type Blood Type Confirm Antibody Screen 06/01/17 06/01/17 06/01/17 Range/Units 16:29 14:05 14:00 WBC (4.8-10.8) K/uL RBC (3.80-5.20) Mil/uL Hgb (11.0-16.0) g/dL Hct (34.0-47.0) % MCV (81.0-99.0) fL MCH (27.0-31.0) pg MCHC (33.0-37.0) g/dL RDW (11.5-14.5) % Plt Count (130-400) K/uL MPV (7.2-11.7) fL Neut % (Auto) (50.0-75.0) % Lymph % (Auto) (20.0-40.0) % Gibson % (Auto) (0.0-10.0) % Eos % (Auto) (0.0-4.0) % Baso % (Auto) (0.0-2.0) % Neut # (1.8-7.0) K/uL Lymph # (1.0-4.3) K/uL Gibson # (0.0-0.8) K/uL Eos # (0.0-0.7) K/uL Baso # (0.0-0.2) K/uL Neutrophils % (Manual) (50-75) % Band Neutrophils % (0-2) % Lymphocytes % (Manual) (20-40) % Monocytes % (Manual) (0-10) % Nucleated RBC % (0-0) % Hypersegmented Polys Smudge Cells Platelet Estimate (NORMAL) Large Platelets Polychromasia Hypochromasia (manual) Poikilocytosis (manual Anisocytosis (manual) Microcytosis (manual) Macrocytosis (manual) Target Cells Puncture Site A-line pCO2 27 L (35-45) mm/Hg pO2 350 H (80-100) mm/Hg HCO3 20.0 L (21-28) mmol/L ABG pH 7.42 (7.35-7.45) ABG Total CO2 18.3 L (22-28) mmol/L ABG O2 Saturation 99.7 H (95-98) % ABG Base Excess -6.4 L (-2.0-3.0) mmol/L ABG Hemoglobin 5.8 L (11.7-17.4) g/dL ABG Carboxyhemoglobin 1.5 (0.5-1.5) % POC ABG HHb (Measured) 0.3 (0.0-5.0) % ABG Methemoglobin 1.5 (0.0-3.0) % Sj Test Na A-a O2 Difference 329.0 mm/Hg Respiratory Index 0.9 Hgb O2 Saturation 96.7 (95.0-98.0) % Vent Mode Mechanical Rate 20 FiO2 100.0 % Tidal Volume 500 PEEP 5 Inspiratory BiPAP Expiratory BiPAP Crit Value Called To Dr holliday Crit Value Called By Alberto hurst test preparer Crit Value Read Back Y Blood Gas Notified Time 1420 Sodium 149 H (132-148) mmol/L Potassium 4.1 (3.6-5.2) mmol/L Chloride 106 (98-107) mmol/L Carbon Dioxide 25 (22-30) mmol/L Anion Gap 22 H (10-20) BUN 89 H (7-17) mg/dL Creatinine 3.2 H (0.7-1.2) MG/DL Est GFR ( Amer) 17 Est GFR (Non-Af Amer) 14 POC Glucose (mg/dL) (65-110) mg/dL Random Glucose 108 H (65-105) mg/dL Calcium 6.8 L (8.6-10.4) mg/dl Phosphorus 9.6 H (2.5-4.5) mg/dL Magnesium 2.7 H (1.6-2.3) mg/dL Total Bilirubin 0.8 (0.2-1.3) mg/dL AST 66 H D (14-36) U/L ALT 67 H D (9-52) U/L Alkaline Phosphatase 32 L (38-126) U/L Total Protein 4.3 L (6.3-8.3) g/dL Albumin 2.4 L (3.5-5.0) g/dL Globulin 2.0 L (2.2-3.9) gm/dL Albumin/Globulin Ratio 1.2 (1.0-2.1) Urine Color Stella (YELLOW) Urine Clarity Hazy (Clear) Urine pH 5.0 (5.0-8.0) Ur Specific [place] 1.025 (1.003-1.030) Urine Protein 2+ H (NEGATIVE) mg/dL Urine Glucose (UA) 1+ (Normal) mg/dL Urine Ketones Negative (NEGATIVE) mg/dL Urine Blood 3+ H (NEGATIVE) Urine Nitrate Negative (NEGATIVE) Urine Bilirubin Negative (NEGATIVE) Urine Urobilinogen Normal (0.2-1.0) mg/dL Ur Leukocyte Esterase 1+ H (Negative) Monique/uL Urine WBC (Auto) 24 H (0-5) /hpf Urine RBC (Auto) 702 H (0-3) /hpf Ur Squamous Epith Cells 1 (0-5) /hpf Urine Bacteria Few H (<OCC) Ur Random Sodium mmol/L C. difficile Ag & Toxin (NEGATIVE) Blood Type Blood Type Confirm Antibody Screen 06/01/17 06/01/17 06/01/17 Range/Units 09:25 09:23 06:53 WBC (4.8-10.8) K/uL RBC (3.80-5.20) Mil/uL Hgb (11.0-16.0) g/dL Hct (34.0-47.0) % MCV (81.0-99.0) fL MCH (27.0-31.0) pg MCHC (33.0-37.0) g/dL RDW (11.5-14.5) % Plt Count (130-400) K/uL MPV (7.2-11.7) fL Neut % (Auto) (50.0-75.0) % Lymph % (Auto) (20.0-40.0) % Gibson % (Auto) (0.0-10.0) % Eos % (Auto) (0.0-4.0) % Baso % (Auto) (0.0-2.0) % Neut # (1.8-7.0) K/uL Lymph # (1.0-4.3) K/uL Gibson # (0.0-0.8) K/uL Eos # (0.0-0.7) K/uL Baso # (0.0-0.2) K/uL Neutrophils % (Manual) (50-75) % Band Neutrophils % (0-2) % Lymphocytes % (Manual) (20-40) % Monocytes % (Manual) (0-10) % Nucleated RBC % (0-0) % Hypersegmented Polys Smudge Cells Platelet Estimate (NORMAL) Large Platelets Polychromasia Hypochromasia (manual) Poikilocytosis (manual Anisocytosis (manual) Microcytosis (manual) Macrocytosis (manual) Target Cells Puncture Site R/rad pCO2 43 (35-45) mm/Hg pO2 104 H (80-100) mm/Hg HCO3 28.5 H (21-28) mmol/L ABG pH 7.44 (7.35-7.45) ABG Total CO2 30.5 H (22-28) mmol/L ABG O2 Saturation 99.4 H (95-98) % ABG Base Excess 4.6 H (-2.0-3.0) mmol/L ABG Hemoglobin 7.6 L (11.7-17.4) g/dL ABG Carboxyhemoglobin 1.8 H (0.5-1.5) % POC ABG HHb (Measured) 0.6 (0.0-5.0) % ABG Methemoglobin 1.5 (0.0-3.0) % Sj Test P0s A-a O2 Difference 127.0 mm/Hg Respiratory Index 1.2 Hgb O2 Saturation 96.1 (95.0-98.0) % Vent Mode Bipap Mechanical Rate 12 FiO2 40.0 % Tidal Volume PEEP Inspiratory BiPAP 12 Expiratory BiPAP 8 Crit Value Called To Dr holliday Crit Value Called By Alberto hurst Crit Value Read Back Y Blood Gas Notified Time 940 Sodium (132-148) mmol/L Potassium (3.6-5.2) mmol/L Chloride (98-107) mmol/L Carbon Dioxide (22-30) mmol/L Anion Gap (10-20) BUN (7-17) mg/dL Creatinine (0.7-1.2) MG/DL Est GFR ( Amer) Est GFR (Non-Af Amer) POC Glucose (mg/dL) 163 H (65-110) mg/dL Random Glucose (65-105) mg/dL Calcium (8.6-10.4) mg/dl Phosphorus (2.5-4.5) mg/dL Magnesium (1.6-2.3) mg/dL Total Bilirubin (0.2-1.3) mg/dL AST (14-36) U/L ALT (9-52) U/L Alkaline Phosphatase (38-126) U/L Total Protein (6.3-8.3) g/dL Albumin (3.5-5.0) g/dL Globulin (2.2-3.9) gm/dL Albumin/Globulin Ratio (1.0-2.1) Urine Color (YELLOW) Urine Clarity (Clear) Urine pH (5.0-8.0) Ur Specific [place] (1.003-1.030) Urine Protein (NEGATIVE) mg/dL Urine Glucose (UA) (Normal) mg/dL Urine Ketones (NEGATIVE) mg/dL Urine Blood (NEGATIVE) Urine Nitrate (NEGATIVE) Urine Bilirubin (NEGATIVE) Urine Urobilinogen (0.2-1.0) mg/dL Ur Leukocyte Esterase (Negative) Monique/uL Urine WBC (Auto) (0-5) /hpf Urine RBC (Auto) (0-3) /hpf Ur Squamous Epith Cells (0-5) /hpf Urine Bacteria (<OCC) Ur Random Sodium mmol/L C. difficile Ag & Toxin (NEGATIVE) Blood Type A POSITIVE Blood Type Confirm A POSITIVE Antibody Screen Negative 06/01/17 Range/Units 06:53 WBC (4.8-10.8) K/uL RBC (3.80-5.20) Mil/uL Hgb (11.0-16.0) g/dL Hct (34.0-47.0) % MCV (81.0-99.0) fL MCH (27.0-31.0) pg MCHC (33.0-37.0) g/dL RDW (11.5-14.5) % Plt Count (130-400) K/uL MPV (7.2-11.7) fL Neut % (Auto) (50.0-75.0) % Lymph % (Auto) (20.0-40.0) % Gibson % (Auto) (0.0-10.0) % Eos % (Auto) (0.0-4.0) % Baso % (Auto) (0.0-2.0) % Neut # (1.8-7.0) K/uL Lymph # (1.0-4.3) K/uL Gibson # (0.0-0.8) K/uL Eos # (0.0-0.7) K/uL Baso # (0.0-0.2) K/uL Neutrophils % (Manual) 87 H (50-75) % Band Neutrophils % (0-2) % Lymphocytes % (Manual) 8 L (20-40) % Monocytes % (Manual) 5 (0-10) % Nucleated RBC % 2 H (0-0) % Hypersegmented Polys Smudge Cells Platelet Estimate Normal (NORMAL) Large Platelets Polychromasia Slight Hypochromasia (manual) Marked Poikilocytosis (manual Slight Anisocytosis (manual) Slight Microcytosis (manual) Slight Macrocytosis (manual) Slight Target Cells Slight Puncture Site pCO2 (35-45) mm/Hg pO2 (80-100) mm/Hg HCO3 (21-28) mmol/L ABG pH (7.35-7.45) ABG Total CO2 (22-28) mmol/L ABG O2 Saturation (95-98) % ABG Base Excess (-2.0-3.0) mmol/L ABG Hemoglobin (11.7-17.4) g/dL ABG Carboxyhemoglobin (0.5-1.5) % POC ABG HHb (Measured) (0.0-5.0) % ABG Methemoglobin (0.0-3.0) % Sj Test A-a O2 Difference mm/Hg Respiratory Index Hgb O2 Saturation (95.0-98.0) % Vent Mode Mechanical Rate FiO2 % Tidal Volume PEEP Inspiratory BiPAP Expiratory BiPAP Crit Value Called To Crit Value Called By Crit Value Read Back Blood Gas Notified Time Sodium (132-148) mmol/L Potassium (3.6-5.2) mmol/L Chloride (98-107) mmol/L Carbon Dioxide (22-30) mmol/L Anion Gap (10-20) BUN (7-17) mg/dL Creatinine (0.7-1.2) MG/DL Est GFR ( Amer) Est GFR (Non-Af Amer) POC Glucose (mg/dL) (65-110) mg/dL Random Glucose (65-105) mg/dL Calcium (8.6-10.4) mg/dl Phosphorus (2.5-4.5) mg/dL Magnesium (1.6-2.3) mg/dL Total Bilirubin (0.2-1.3) mg/dL AST (14-36) U/L ALT (9-52) U/L Alkaline Phosphatase (38-126) U/L Total Protein (6.3-8.3) g/dL Albumin (3.5-5.0) g/dL Globulin (2.2-3.9) gm/dL Albumin/Globulin Ratio (1.0-2.1) Urine Color (YELLOW) Urine Clarity (Clear) Urine pH (5.0-8.0) Ur Specific [place] (1.003-1.030) Urine Protein (NEGATIVE) mg/dL Urine Glucose (UA) (Normal) mg/dL Urine Ketones (NEGATIVE) mg/dL Urine Blood (NEGATIVE) Urine Nitrate (NEGATIVE) Urine Bilirubin (NEGATIVE) Urine Urobilinogen (0.2-1.0) mg/dL Ur Leukocyte Esterase (Negative) Monique/uL Urine WBC (Auto) (0-5) /hpf Urine RBC (Auto) (0-3) /hpf Ur Squamous Epith Cells (0-5) /hpf Urine Bacteria (<OCC) Ur Random Sodium mmol/L C. difficile Ag & Toxin (NEGATIVE) Blood Type Blood Type Confirm Antibody Screen Laboratory Results - last 24 hr 06/01/17 06/01/17 06/01/17 06:53 06:53 09:23 WBC RBC Hgb Hct MCV MCH MCHC RDW Plt Count MPV Neut % (Auto) Lymph % (Auto) Gibson % (Auto) Eos % (Auto) Baso % (Auto) Neut # Lymph # Gibson # Eos # Baso # Neutrophils % (Manual) 87 H Band Neutrophils % Lymphocytes % (Manual) 8 L Monocytes % (Manual) 5 Nucleated RBC % 2 H Hypersegmented Polys Smudge Cells Platelet Estimate Normal Large Platelets Polychromasia Slight Hypochromasia (manual) Marked Poikilocytosis (manual Slight Anisocytosis (manual) Slight Microcytosis (manual) Slight Macrocytosis (manual) Slight Target Cells Slight Puncture Site pCO2 pO2 HCO3 ABG pH ABG Total CO2 ABG O2 Saturation ABG Base Excess ABG Hemoglobin ABG Carboxyhemoglobin POC ABG HHb (Measured) ABG Methemoglobin Sj Test A-a O2 Difference Respiratory Index Hgb O2 Saturation Vent Mode Mechanical Rate FiO2 Tidal Volume PEEP Inspiratory BiPAP Expiratory BiPAP Crit Value Called To Crit Value Called By Crit Value Read Back Blood Gas Notified Time Sodium Potassium Chloride Carbon Dioxide Anion Gap BUN Creatinine Est GFR ( Amer) Est GFR (Non-Af Amer) POC Glucose (mg/dL) 163 H Random Glucose Calcium Phosphorus Magnesium Total Bilirubin AST ALT Alkaline Phosphatase Total Protein Albumin Globulin Albumin/Globulin Ratio Urine Color Urine Clarity Urine pH Ur Specific [place] Urine Protein Urine Glucose (UA) Urine Ketones Urine Blood Urine Nitrate Urine Bilirubin Urine Urobilinogen Ur Leukocyte Esterase Urine WBC (Auto) Urine RBC (Auto) Ur Squamous Epith Cells Urine Bacteria Ur Random Sodium C. difficile Ag & Toxin Blood Type A POSITIVE Blood Type Confirm A POSITIVE Antibody Screen Negative 06/01/17 06/01/17 06/01/17 09:25 14:00 14:05 WBC RBC Hgb Hct MCV MCH MCHC RDW Plt Count MPV Neut % (Auto) Lymph % (Auto) Gibson % (Auto) Eos % (Auto) Baso % (Auto) Neut # Lymph # Gibson # Eos # Baso # Neutrophils % (Manual) Band Neutrophils % Lymphocytes % (Manual) Monocytes % (Manual) Nucleated RBC % Hypersegmented Polys Smudge Cells Platelet Estimate Large Platelets Polychromasia Hypochromasia (manual) Poikilocytosis (manual Anisocytosis (manual) Microcytosis (manual) Macrocytosis (manual) Target Cells Puncture Site R/rad A-line pCO2 43 27 L pO2 104 H 350 H HCO3 28.5 H 20.0 L ABG pH 7.44 7.42 ABG Total CO2 30.5 H 18.3 L ABG O2 Saturation 99.4 H 99.7 H ABG Base Excess 4.6 H -6.4 L ABG Hemoglobin 7.6 L 5.8 L ABG Carboxyhemoglobin 1.8 H 1.5 POC ABG HHb (Measured) 0.6 0.3 ABG Methemoglobin 1.5 1.5 Sj Test P0s Na A-a O2 Difference 127.0 329.0 Respiratory Index 1.2 0.9 Hgb O2 Saturation 96.1 96.7 Vent Mode Bipap Mechanical Rate 12 20 FiO2 40.0 100.0 Tidal Volume 500 PEEP 5 Inspiratory BiPAP 12 Expiratory BiPAP 8 Crit Value Called To Dr mg holliday Crit Value Called By Alberto hurst test preparer Crit Value Read Back Y Y Blood Gas Notified Time 940 1420 Sodium 149 H Potassium 4.1 Chloride 106 Carbon Dioxide 25 Anion Gap 22 H BUN 89 H Creatinine 3.2 H Est GFR ( Amer) 17 Est GFR (Non-Af Amer) 14 POC Glucose (mg/dL) Random Glucose 108 H Calcium 6.8 L Phosphorus 9.6 H Magnesium 2.7 H Total Bilirubin 0.8 AST 66 H D ALT 67 H D Alkaline Phosphatase 32 L Total Protein 4.3 L Albumin 2.4 L Globulin 2.0 L Albumin/Globulin Ratio 1.2 Urine Color Urine Clarity Urine pH Ur Specific [place] Urine Protein Urine Glucose (UA) Urine Ketones Urine Blood Urine Nitrate Urine Bilirubin Urine Urobilinogen Ur Leukocyte Esterase Urine WBC (Auto) Urine RBC (Auto) Ur Squamous Epith Cells Urine Bacteria Ur Random Sodium C. difficile Ag & Toxin Blood Type Blood Type Confirm Antibody Screen 06/01/17 06/01/17 06/01/17 16:29 16:29 18:54 WBC 37.6 H* RBC 3.21 L Hgb 8.9 L D Hct 27.7 L MCV 86.3 MCH 27.6 MCHC 31.9 L RDW 16.2 H Plt Count 198 MPV 9.4 Neut % (Auto) 84.2 H Lymph % (Auto) 9.6 L Gibson % (Auto) 5.5 Eos % (Auto) 0.2 Baso % (Auto) 0.5 Neut # 31.6 H Lymph # 3.6 Gibson # 2.1 H Eos # 0.1 Baso # 0.2 Neutrophils % (Manual) 85 H Band Neutrophils % 4 H Lymphocytes % (Manual) 7 L Monocytes % (Manual) 4 Nucleated RBC % Hypersegmented Polys Present Smudge Cells Present Platelet Estimate Normal Large Platelets Present Polychromasia Hypochromasia (manual) Slight Poikilocytosis (manual Slight Anisocytosis (manual) Slight Microcytosis (manual) Slight Macrocytosis (manual) Target Cells Puncture Site pCO2 pO2 HCO3 ABG pH ABG Total CO2 ABG O2 Saturation ABG Base Excess ABG Hemoglobin ABG Carboxyhemoglobin POC ABG HHb (Measured) ABG Methemoglobin Sj Test A-a O2 Difference Respiratory Index Hgb O2 Saturation Vent Mode Mechanical Rate FiO2 Tidal Volume PEEP Inspiratory BiPAP Expiratory BiPAP Crit Value Called To Crit Value Called By Crit Value Read Back Blood Gas Notified Time Sodium Potassium Chloride Carbon Dioxide Anion Gap BUN Creatinine Est GFR ( Amer) Est GFR (Non-Af Amer) POC Glucose (mg/dL) Random Glucose Calcium Phosphorus Magnesium Total Bilirubin AST ALT Alkaline Phosphatase Total Protein Albumin Globulin Albumin/Globulin Ratio Urine Color Stella Urine Clarity Hazy Urine pH 5.0 Ur Specific [place] 1.025 Urine Protein 2+ H Urine Glucose (UA) 1+ Urine Ketones Negative Urine Blood 3+ H Urine Nitrate Negative Urine Bilirubin Negative Urine Urobilinogen Normal Ur Leukocyte Esterase 1+ H Urine WBC (Auto) 24 H Urine RBC (Auto) 702 H Ur Squamous Epith Cells 1 Urine Bacteria Few H Ur Random Sodium 17 C. difficile Ag & Toxin Blood Type Blood Type Confirm Antibody Screen 06/01/17 06/01/17 06/02/17 18:54 21:59 06:19 WBC 37.4 H* RBC 2.75 L Hgb 7.7 L Hct 23.7 L MCV 86.5 MCH 28.2 MCHC 32.6 L RDW 16.4 H Plt Count 185 MPV 10.4 Neut % (Auto) 82.7 H Lymph % (Auto) 8.6 L Gibson % (Auto) 6.3 Eos % (Auto) 1.9 Baso % (Auto) 0.5 Neut # 31.0 H Lymph # 3.2 Gibson # 2.3 H Eos # 0.7 Baso # 0.2 Neutrophils % (Manual) Band Neutrophils % Lymphocytes % (Manual) Monocytes % (Manual) Nucleated RBC % Hypersegmented Polys Smudge Cells Platelet Estimate Large Platelets Polychromasia Hypochromasia (manual) Poikilocytosis (manual Anisocytosis (manual) Microcytosis (manual) Macrocytosis (manual) Target Cells Puncture Site pCO2 pO2 HCO3 ABG pH ABG Total CO2 ABG O2 Saturation ABG Base Excess ABG Hemoglobin ABG Carboxyhemoglobin POC ABG HHb (Measured) ABG Methemoglobin Sj Test A-a O2 Difference Respiratory Index Hgb O2 Saturation Vent Mode Mechanical Rate FiO2 Tidal Volume PEEP Inspiratory BiPAP Expiratory BiPAP Crit Value Called To Crit Value Called By Crit Value Read Back Blood Gas Notified Time Sodium 149 H Potassium 3.6 Chloride 112 H Carbon Dioxide 25 Anion Gap 16 BUN 97 H Creatinine 3.5 H Est GFR ( Amer) 15 Est GFR (Non-Af Amer) 13 POC Glucose (mg/dL) Random Glucose 134 H Calcium 7.2 L Phosphorus 9.3 H Magnesium 2.7 H Total Bilirubin 1.3 AST 108 H D ALT 84 H D Alkaline Phosphatase 36 L Total Protein 4.8 L Albumin 2.6 L Globulin 2.2 Albumin/Globulin Ratio 1.2 Urine Color Urine Clarity Urine pH Ur Specific [place] Urine Protein Urine Glucose (UA) Urine Ketones Urine Blood Urine Nitrate Urine Bilirubin Urine Urobilinogen Ur Leukocyte Esterase Urine WBC (Auto) Urine RBC (Auto) Ur Squamous Epith Cells Urine Bacteria Ur Random Sodium C. difficile Ag & Toxin Negative Blood Type Blood Type Confirm Antibody Screen 06/02/17 06:19 WBC RBC Hgb Hct MCV MCH MCHC RDW Plt Count MPV Neut % (Auto) Lymph % (Auto) [place] % (Auto) Eos % (Auto) Baso % (Auto) Neut # Lymph # Gibson # Eos # Baso # Neutrophils % (Manual) Band Neutrophils % Lymphocytes % (Manual) Monocytes % (Manual) Nucleated RBC % Hypersegmented Polys Smudge Cells Platelet Estimate Large Platelets Polychromasia Hypochromasia (manual) Poikilocytosis (manual Anisocytosis (manual) Microcytosis (manual) Macrocytosis (manual) Target Cells Puncture Site pCO2 pO2 HCO3 ABG pH ABG Total CO2 ABG O2 Saturation ABG Base Excess ABG Hemoglobin ABG Carboxyhemoglobin POC ABG HHb (Measured) ABG Methemoglobin Sj Test A-a O2 Difference Respiratory Index Hgb O2 Saturation Vent Mode Mechanical Rate FiO2 Tidal Volume PEEP Inspiratory BiPAP Expiratory BiPAP Crit Value Called To Crit Value Called By Crit Value Read Back Blood Gas Notified Time Sodium 146 Potassium 4.1 Chloride 109 H Carbon Dioxide 22 Anion Gap 19 BUN 100 H* Creatinine 3.7 H Est GFR ( Amer) 14 Est GFR (Non-Af Amer) 12 POC Glucose (mg/dL) Random Glucose 106 H Calcium 6.9 L Phosphorus 9.5 H Magnesium 2.6 H Total Bilirubin 1.2 AST 93 H ALT 74 H Alkaline Phosphatase 33 L Total Protein 4.2 L Albumin 2.2 L Globulin 2.0 L Albumin/Globulin Ratio 1.1 Urine Color Urine Clarity Urine pH Ur Specific [place] Urine Protein Urine Glucose (UA) Urine Ketones Urine Blood Urine Nitrate Urine Bilirubin Urine Urobilinogen Ur Leukocyte Esterase Urine WBC (Auto) Urine RBC (Auto) Ur Squamous Epith Cells Urine Bacteria Ur Random Sodium C. difficile Ag & Toxin Blood Type Blood Type Confirm Antibody Screen Review of Systems - Review of Systems Systems not reviewed;Unavailable: Intubated Critical Care Progress Note - Vent Settings TIDAL VOLUME:: 500 RESP RATE:: 20 FIO2:: 50 PEEP:: 5 Assessment/Plan (1) Respiratory acidosis Current Visit: Yes Status: Acute (2) COPD exacerbation Current Visit: Yes Status: Acute (3) Elevated troponin Current Visit: Yes Status: Acute (4) Atrial fibrillation, new onset Current Visit: Yes Status: Acute (5) Cardiomegaly Current Visit: Yes Status: Acute (6) Elevated WBCs Current Visit: Yes Status: Acute (7) Abnormal RBC indices Current Visit: Yes Status: Acute (8) History of hypertension Current Visit: Yes Status: Acute (9) History of hyperlipidemia Current Visit: Yes Status: Acute (10) Change in mental state Current Visit: Yes Status: Acute (11) History of dementia Current Visit: Yes Status: Acute (12) History of gastroesophageal reflux (GERD) Current Visit: Yes Status: Acute (13) History of glaucoma Current Visit: Yes Status: Acute (14) Prophylactic measure Current Visit: Yes Status: Acute - Assessment and Plan (Free Text) Assessment: 76 year old female with PMHx of COPD, AFib, Asthma, HTN, Cardiomegaly with Diastolic Heart Failure, Dementia presenting with acute respiratory failure likely secondary COPD exacerbation, resulting in intubation (05/22). Extubated and Re-intubated on 06/01. Today 06/02/2017: Overnight with loose bowel movements, c.diff ordered and negative. Transfused 1u pRBC today. Fecal occult stool positive. Pulm: Acute respiratory failure secondary to pulmonary edema - Re-intubated 06/01 - 06/01 CXR: Prominent patchy increased markings at both lung bases; left greater than right suggestive for infiltrate and or atelectasis. Suggestion of a small left and or trace right pleural effusion. - f/u ABGs - Mucomyst 4 ml RQ6 - DuoNeb 3 ml RQ6 - Singulair 10 mg PO daily - Lasix 40 mg IVP daily GI: NPO; Stool occult blood positive - Drop in Hgb, Stool occult blood: Positive - 06/01 C. diff toxin negative CV: Mildly hypotensive, Acute on chronic decompensated diastolic heart failure - norepinephrine for pressure support - A. fib rate controlled with Cardizem 30 mg PO daily - Crestor 10 mg PO daily ID: Empiric therapy for possible underlying pneumonia; Candidal rash bilateral breast - elevated procalcitonin - linezolid 600mg iv q12 started 06/01 - metronidazole 250mg po q8 started 06/01 - pip/tazo 3.375g iv q8 started 05/31 - Nystatin powder for rash underneath breasts b/l Heme: Stool occult blood positive - Bilateral ecchymosis in upper extremities with edema. - Stopped all anti-platelet medications ASA and Lovenox due to anemia - transfused with 2 units of pRBC 06/01 and 1 unit pRBC 06/02 - 05/31 venous duplex scan of bilaterally upper extremities: Right - no abnormal findings. Left - not done due to swelling. Renal: elevated BUN: Cr, urine output decreased today - Nephro consulted, will f/u reccs - will continue to monitor, hold enalapril Endo: No acute issues Neuro: More alert compared to yesterday DVT proph - SCD, hold Lovenox GI proph - Protonix 40 mg Saenz for strict I/O's during acute illness Multivitamins Code status - full code <Toribio Camejo S - Last Filed: 06/02/17 18:18> CCU Objective - Vital Signs / Intake & Output Vital Signs (Last 4 hours): Vital Signs Temp Pulse Resp BP Pulse Ox 06/02/17 18:00 107 H 21 100 06/02/17 17:30 109 H 22 100 06/02/17 17:23 110 H 21 119/52 L 100 06/02/17 17:00 98.2 F 105 H 19 96 06/02/17 16:30 109 H 17 100 06/02/17 16:19 102 H 20 127/62 99 06/02/17 16:14 98 H 21 119/78 100 06/02/17 16:06 101 H 20 83/64 L 100 06/02/17 16:00 111 H 20 100 06/02/17 15:49 105 H 20 120/40 L 100 06/02/17 15:34 100 H 20 117/46 L 100 06/02/17 15:30 103 H 20 100 06/02/17 15:20 100 H 20 120/48 L 100 06/02/17 15:04 107 H 20 125/53 L 100 06/02/17 15:00 106 H 20 100 06/02/17 14:49 104 H 20 109/53 L 100 06/02/17 14:34 111 H 20 105/49 L 100 06/02/17 14:30 111 H 20 100 06/02/17 14:20 113 H 20 105/39 L 100 Intake and Output (Last 8hrs): Intake & Output 06/02/17 06/02/17 06/02/17 06:59 14:59 22:59 Intake Total 1394.0 1922.0 726.3 Output Total 80 174 132 Balance 1314.0 1748.0 594.3 Weight 264 lb Intake: IV 20 80 100 Intake, IV Amount 1374.0 1134.0 626.3 Right Distal Port 1250 1055 600 Internal Jugular Right Medial Port 124.0 79.0 26.3 Internal Jugular Blood Product 658 Apheresis Lrbc As-3 Unit 325 [id number] Other 50 Apheresis Lrbc As-3 Unit 50 [id number] Output: Urine 80 174 132 Urethral (Saenz) 80 174 132 Other: # Bowel Movements 1 0 - Medications Active Medications: Active Medications Generic Name Dose Route Start Last Admin Trade Name Ovidioq PRN Reason Stop Dose Admin Acetylcysteine 4 ml 05/25/17 09:15 06/02/17 13:40 Acetylcysteine 20% INH 4 ml RQ6 ALISA Administration Albuterol/Ipratropium 3 ml 05/28/17 18:45 06/02/17 13:40 Duoneb 3 Mg/0.5 Mg (3 Ml) Ud INH 3 ml RQ6 ALISA Administration Calcium Acetate 667 mg 06/01/17 17:00 06/02/17 16:21 Phoslo PO 667 mg TIDCC ALISA Administration Diltiazem HCl 30 mg 05/26/17 12:00 09/19/17 17:11 Cardizem PO Not Given Q6H ALISA Dorzolamide HCl 10 ml 05/22/17 18:00 06/02/17 17:10 Trusopt OU 1 drop TID ALISA Administration Furosemide 40 mg 06/01/17 10:00 06/02/17 10:13 Lasix IVP 40 mg DAILY ALISA Administration Norepinephrine Bitartrate 4 mg 254 mls @ 15.24 mls/hr 06/01/17 12:50 16:00 / Sodium Chloride IV 2 mcg/min .[id number] PRN 7.62 mls/hr TITRATE PER MD ORDER Titration Protocol 4 MCG/MIN Sodium Chloride 1,000 mls @ 150 mls/hr 06/01/17 16:49 06/02/17 14:23 Sodium Chloride 0.9% IV 150 mls/hr .[id number] ALISA Administration Linezolid 600 mg in 300 mls @ 200 mls/hr 06/01/17 22:00 06/02/17 09:47 Zyvox 600mg/300ml D5w IVPB 200 mls/hr Q12 ALISA Administration Piperacillin Sod/Tazobactam Sod 2.25 gm in 50 mls @ 100 mls/hr 06/02/17 14:30 06/02/17 14:29 Zosyn 2.25 Gm Iv Premix IVPB Not Given Q8H ALISA Metronidazole 250 mg 06/01/17 21:00 06/02/17 12:35 Flagyl PO 250 mg Q8H ALISA Administration Montelukast Sodium 10 mg 05/23/17 10:00 06/02/17 09:46 Singulair PO 10 mg DAILY ALISA Administration Multivitamins 1 tab 05/22/17 13:45 06/02/17 09:45 Hexavitamin PO 1 tab DAILY ALISA Administration Nystatin 1 applic 05/27/17 10:30 06/02/17 17:10 Nystop Topical Powder TOP 1 pow TID ALISA Administration Pantoprazole Sodium 40 mg 05/23/17 10:00 06/02/17 09:46 Protonix Susp NG 40 mg DAILY ALISA Administration Rosuvastatin Calcium 10 mg 05/22/17 22:00 06/01/17 21:37 Crestor PO 10 mg HS ALISA Administration - Patient Studies Lab Studies: Lab Studies 06/02/17 06/02/17 06/02/17 Range/Units 14:11 10:16 06:19 WBC (4.8-10.8) K/uL RBC (3.80-5.20) Mil/uL Hgb (11.0-16.0) g/dL Hct (34.0-47.0) % MCV (81.0-99.0) fL MCH (27.0-31.0) pg MCHC (33.0-37.0) g/dL RDW (11.5-14.5) % Plt Count (130-400) K/uL MPV (7.2-11.7) fL Neut % (Auto) (50.0-75.0) % Lymph % (Auto) (20.0-40.0) % Gibson % (Auto) (0.0-10.0) % Eos % (Auto) (0.0-4.0) % Baso % (Auto) (0.0-2.0) % Neut # (1.8-7.0) K/uL Lymph # (1.0-4.3) K/uL Gibson # (0.0-0.8) K/uL Eos # (0.0-0.7) K/uL Baso # (0.0-0.2) K/uL Neutrophils % (Manual) (50-75) % Band Neutrophils % (0-2) % Lymphocytes % (Manual) (20-40) % Monocytes % (Manual) (0-10) % Eosinophils % (Manual) (0-4) % Hypersegmented Polys Smudge Cells Platelet Estimate (NORMAL) Large Platelets Polychromasia Hypochromasia (manual) Poikilocytosis (manual Anisocytosis (manual) Microcytosis (manual) Macrocytosis (manual) [place] Cells Sodium 146 (132-148) mmol/L Potassium 4.1 (3.6-5.2) mmol/L Chloride 109 H (98-107) mmol/L Carbon Dioxide 22 (22-30) mmol/L Anion Gap 19 (10-20) BUN 100 H* (7-17) mg/dL Creatinine 3.7 H (0.7-1.2) MG/DL Est GFR ( Amer) 14 Est GFR (Non-Af Amer) 12 Random Glucose 106 H (65-105) mg/dL Calcium 6.9 L (8.6-10.4) mg/dl Phosphorus 9.5 H (2.5-4.5) mg/dL Magnesium 2.6 H (1.6-2.3) mg/dL Total Bilirubin 1.2 (0.2-1.3) mg/dL AST 93 H (14-36) U/L ALT 74 H (9-52) U/L Alkaline Phosphatase 33 L (38-126) U/L Total Protein 4.2 L (6.3-8.3) g/dL Albumin 2.2 L (3.5-5.0) g/dL Globulin 2.0 L (2.2-3.9) gm/dL Albumin/Globulin Ratio 1.1 (1.0-2.1) Procalcitonin 1.08 H (0.19-0.49) NG/ML Stool Occult Blood Positive H (NEGATIVE) C. difficile Ag & Toxin (NEGATIVE) Blood Type Blood Type Confirm Antibody Screen 06/02/17 06/01/17 06/01/17 Range/Units 06:19 21:59 18:54 WBC 37.4 H* (4.8-10.8) K/uL RBC 2.75 L (3.80-5.20) Mil/uL Hgb 7.7 L (11.0-16.0) g/dL Hct 23.7 L (34.0-47.0) % MCV 86.5 (81.0-99.0) fL MCH 28.2 (27.0-31.0) pg MCHC 32.6 L (33.0-37.0) g/dL RDW 16.4 H (11.5-14.5) % Plt Count 185 (130-400) K/uL MPV 10.4 (7.2-11.7) fL Neut % (Auto) 82.7 H (50.0-75.0) % Lymph % (Auto) 8.6 L (20.0-40.0) % Gibson % (Auto) 6.3 (0.0-10.0) % Eos % (Auto) 1.9 (0.0-4.0) % Baso % (Auto) 0.5 (0.0-2.0) % Neut # 31.0 H (1.8-7.0) K/uL Lymph # 3.2 (1.0-4.3) K/uL Gibson # 2.3 H (0.0-0.8) K/uL Eos # 0.7 (0.0-0.7) K/uL Baso # 0.2 (0.0-0.2) K/uL Neutrophils % (Manual) 79 H (50-75) % Band Neutrophils % 3 H (0-2) % Lymphocytes % (Manual) 10 L (20-40) % Monocytes % (Manual) 7 (0-10) % Eosinophils % (Manual) 1 (0-4) % Hypersegmented Polys Smudge Cells Platelet Estimate Normal (NORMAL) Large Platelets Present Polychromasia Slight Hypochromasia (manual) Slight Poikilocytosis (manual Slight Anisocytosis (manual) Slight Microcytosis (manual) Macrocytosis (manual) Slight [place] Cells Slight Sodium 149 H (132-148) mmol/L Potassium 3.6 (3.6-5.2) mmol/L Chloride 112 H (98-107) mmol/L Carbon Dioxide 25 (22-30) mmol/L Anion Gap 16 (10-20) BUN 97 H (7-17) mg/dL Creatinine 3.5 H (0.7-1.2) MG/DL Est GFR ( Amer) 15 Est GFR (Non-Af Amer) 13 Random Glucose 134 H (65-105) mg/dL Calcium 7.2 L (8.6-10.4) mg/dl Phosphorus 9.3 H (2.5-4.5) mg/dL Magnesium 2.7 H (1.6-2.3) mg/dL Total Bilirubin 1.3 (0.2-1.3) mg/dL AST 108 H D (14-36) U/L ALT 84 H D (9-52) U/L Alkaline Phosphatase 36 L (38-126) U/L Total Protein 4.8 L (6.3-8.3) g/dL Albumin 2.6 L (3.5-5.0) g/dL Globulin 2.2 (2.2-3.9) gm/dL Albumin/Globulin Ratio 1.2 (1.0-2.1) Procalcitonin (0.19-0.49) NG/ML Stool Occult Blood (NEGATIVE) C. difficile Ag & Toxin Negative (NEGATIVE) Blood Type Blood Type Confirm Antibody Screen 06/01/17 06/01/17 Range/Units 18:54 06:53 WBC 37.6 H* (4.8-10.8) K/uL RBC 3.21 L (3.80-5.20) Mil/uL Hgb 8.9 L D (11.0-16.0) g/dL Hct 27.7 L (34.0-47.0) % MCV 86.3 (81.0-99.0) fL MCH 27.6 (27.0-31.0) pg MCHC 31.9 L (33.0-37.0) g/dL RDW 16.2 H (11.5-14.5) % Plt Count 198 (130-400) K/uL MPV 9.4 (7.2-11.7) fL Neut % (Auto) 84.2 H (50.0-75.0) % Lymph % (Auto) 9.6 L (20.0-40.0) % Gibson % (Auto) 5.5 (0.0-10.0) % Eos % (Auto) 0.2 (0.0-4.0) % Baso % (Auto) 0.5 (0.0-2.0) % Neut # 31.6 H (1.8-7.0) K/uL Lymph # 3.6 (1.0-4.3) K/uL Gibson # 2.1 H (0.0-0.8) K/uL Eos # 0.1 (0.0-0.7) K/uL Baso # 0.2 (0.0-0.2) K/uL Neutrophils % (Manual) 85 H (50-75) % Band Neutrophils % 4 H (0-2) % Lymphocytes % (Manual) 7 L (20-40) % Monocytes % (Manual) 4 (0-10) % Eosinophils % (Manual) (0-4) % Hypersegmented Polys Present Smudge Cells Present Platelet Estimate Normal (NORMAL) Large Platelets Present Polychromasia Hypochromasia (manual) Slight Poikilocytosis (manual Slight Anisocytosis (manual) Slight Microcytosis (manual) Slight Macrocytosis (manual) [place] Cells Sodium (132-148) mmol/L Potassium (3.6-5.2) mmol/L Chloride (98-107) mmol/L Carbon Dioxide (22-30) mmol/L Anion Gap (10-20) BUN (7-17) mg/dL Creatinine (0.7-1.2) MG/DL Est GFR ( Amer) Est GFR (Non-Af Amer) Random Glucose (65-105) mg/dL Calcium (8.6-10.4) mg/dl Phosphorus (2.5-4.5) mg/dL Magnesium (1.6-2.3) mg/dL Total Bilirubin (0.2-1.3) mg/dL AST (14-36) U/L ALT (9-52) U/L Alkaline Phosphatase (38-126) U/L Total Protein (6.3-8.3) g/dL Albumin (3.5-5.0) g/dL Globulin (2.2-3.9) gm/dL Albumin/Globulin Ratio (1.0-2.1) Procalcitonin (0.19-0.49) NG/ML Stool Occult Blood (NEGATIVE) C. difficile Ag & Toxin (NEGATIVE) Blood Type A POSITIVE Blood Type Confirm A POSITIVE Antibody Screen Negative Laboratory Results - last 24 hr 06/01/17 06/01/17 06/01/17 06:53 18:54 18:54 WBC 37.6 H* RBC 3.21 L Hgb 8.9 L D Hct 27.7 L MCV 86.3 MCH 27.6 MCHC 31.9 L RDW 16.2 H Plt Count 198 MPV 9.4 Neut % (Auto) 84.2 H Lymph % (Auto) 9.6 L [place] % (Auto) 5.5 Eos % (Auto) 0.2 Baso % (Auto) 0.5 Neut # 31.6 H Lymph # 3.6 Gibson # 2.1 H Eos # 0.1 Baso # 0.2 Neutrophils % (Manual) 85 H Band Neutrophils % 4 H Lymphocytes % (Manual) 7 L Monocytes % (Manual) 4 Eosinophils % (Manual) Hypersegmented Polys Present Smudge Cells Present Platelet Estimate Normal Large Platelets Present Polychromasia Hypochromasia (manual) Slight Poikilocytosis (manual Slight Anisocytosis (manual) Slight Microcytosis (manual) Slight Macrocytosis (manual) [place] Cells Sodium 149 H Potassium 3.6 Chloride 112 H Carbon Dioxide 25 Anion Gap 16 BUN 97 H Creatinine 3.5 H Est GFR ( Amer) 15 Est GFR (Non-Af Amer) 13 Random Glucose 134 H Calcium 7.2 L Phosphorus 9.3 H Magnesium 2.7 H Total Bilirubin 1.3 AST 108 H D ALT 84 H D Alkaline Phosphatase 36 L Total Protein 4.8 L Albumin 2.6 L Globulin 2.2 Albumin/Globulin Ratio 1.2 Procalcitonin Stool Occult Blood C. difficile Ag & Toxin Blood Type A POSITIVE Blood Type Confirm A POSITIVE Antibody Screen Negative 06/01/17 06/02/17 06/02/17 21:59 06:19 06:19 WBC 37.4 H* RBC 2.75 L Hgb 7.7 L Hct 23.7 L MCV 86.5 MCH 28.2 MCHC 32.6 L RDW 16.4 H Plt Count 185 MPV 10.4 Neut % (Auto) 82.7 H Lymph % (Auto) 8.6 L [place] % (Auto) 6.3 Eos % (Auto) 1.9 Baso % (Auto) 0.5 Neut # 31.0 H Lymph # 3.2 Gibson # 2.3 H Eos # 0.7 Baso # 0.2 Neutrophils % (Manual) 79 H Band Neutrophils % 3 H Lymphocytes % (Manual) 10 L Monocytes % (Manual) 7 Eosinophils % (Manual) 1 Hypersegmented Polys Smudge Cells Platelet Estimate Normal Large Platelets Present Polychromasia Slight Hypochromasia (manual) Slight Poikilocytosis (manual Slight Anisocytosis (manual) Slight Microcytosis (manual) Macrocytosis (manual) Slight [place] Cells Slight Sodium 146 Potassium 4.1 Chloride 109 H Carbon Dioxide 22 Anion Gap 19 BUN 100 H* Creatinine 3.7 H Est GFR ( Amer) 14 Est GFR (Non-Af Amer) 12 Random Glucose 106 H Calcium 6.9 L Phosphorus 9.5 H Magnesium 2.6 H Total Bilirubin 1.2 AST 93 H ALT 74 H Alkaline Phosphatase 33 L Total Protein 4.2 L Albumin 2.2 L Globulin 2.0 L Albumin/Globulin Ratio 1.1 Procalcitonin Stool Occult Blood C. difficile Ag & Toxin Negative Blood Type Blood Type Confirm Antibody Screen 06/02/17 06/02/17 10:16 14:11 WBC RBC Hgb Hct MCV MCH MCHC RDW Plt Count MPV Neut % (Auto) Lymph % (Auto) [place] % (Auto) Eos % (Auto) Baso % (Auto) Neut # Lymph # Gibson # Eos # Baso # Neutrophils % (Manual) Band Neutrophils % Lymphocytes % (Manual) Monocytes % (Manual) Eosinophils % (Manual) Hypersegmented Polys Smudge Cells Platelet Estimate Large Platelets Polychromasia Hypochromasia (manual) Poikilocytosis (manual Anisocytosis (manual) Microcytosis (manual) Macrocytosis (manual) [place] Cells Sodium Potassium Chloride Carbon Dioxide Anion Gap BUN Creatinine Est GFR ( Amer) Est GFR (Non-Af Amer) Random Glucose Calcium Phosphorus Magnesium Total Bilirubin AST ALT Alkaline Phosphatase Total Protein Albumin Globulin Albumin/Globulin Ratio Procalcitonin 1.08 H Stool Occult Blood Positive H C. difficile Ag & Toxin Blood Type Blood Type Confirm Antibody Screen Assessment/Plan (1) Acute respiratory failure with hypoxia and hypercapnia Current Visit: Yes Status: Acute (2) Atrial fibrillation, new onset Current Visit: Yes Status: Acute (3) COPD exacerbation Current Visit: Yes Status: Acute Attending/Attestation - Attestation I have personally seen and examined this patient.: Yes I have fully participated in the care of the patient.: Yes I have reviewed all pertinent clinical information: Yes Notes (Text): 06/02/17 18:15 Patient seen and examined in the intensive care unit. Case discussed with house staff in the morning Patient was reintubated yesterday for hypoxemia and respiratory distress Now sedated on ventilatory support, FiO2 50% Dialysis catheter inserted for worsening renal function Continue antibiotics Continue bronchodilators and feeding Off anticoagulation Transfuse packed RBCs as needed
[2017-06-02 08:34] LABS: EOSINOPHIL 1 % (0-4); NEUTROPHIL 79 % (50-75); TOTAL CELLS COUNTED 100
[2017-06-02 08:35] LABS: LARGE PLATELETS PRESENT
--- NOTE | 2017-06-02 09:38 | RAD ---
Chest x-ray single frontal view History: Intubated. Comparison: 06/01/2017 Findings: NG tube extending into the stomach. Other lines and tubes stable position. Moderate venous congestion. Patchy opacification throughout the left lung. Small left pleural effusion. Right infrahilar consolidation. Cardiomegaly. Degenerative changes in the spine and shoulders. Impression: NG tube extending into the stomach. Other lines and tubes stable position. Moderate venous congestion. Patchy opacification throughout the left lung. Small left pleural effusion. Right infrahilar consolidation. Cardiomegaly.
[2017-06-02] MEDS: Multiple Vitamins Tab PO SCH (09:45)
[2017-06-02] MEDS: Dorzolamide 2% Opht Sol 10ml OU SCH ×3 (09:46→17:10)
[2017-06-02] MEDS: Pantoprazole 40 mg Susp UD NG SCH (09:46)
[2017-06-02] MEDS: Linezolid 600 mg in D5W 300 ml 600 MG/300 ML BAG IVPB SCH ×2 (09:47→22:47)
--- NOTE | 2017-06-02 10:12 | CP.PCM.PN ---
Subjective - Date & Time of Evaluation Date of Evaluation: 06/02/17 Time of Evaluation: 10:11 - Subjective Subjective: seen and examined on pressor uop 200cc labs noted intubated sedated ros couldnt be obtained cxr noted, congestion Objective - Vital Signs/Intake and Output Vital Signs (last 24 hours): Temp Pulse Resp BP Pulse Ox 98 F 107 H 17 127/45 L 100 06/02/17 08:16 06/02/17 08:30 06/02/17 08:30 06/02/17 08:06 06/02/17 08:30 Intake and Output: 06/02/17 06/02/17 06:59 18:59 Intake Total 2339.2 322.6 Output Total 85 14 Balance 2254.2 308.6 - Medications Medications: Current Medications Acetylcysteine (Acetylcysteine 20%) 4 ml INH RQ6 ALISA Last Admin: 06/02/17 08:26 Dose: 4 ml Albuterol/Ipratropium (Duoneb 3 Mg/0.5 Mg (3 Ml) Ud) 3 ml INH RQ6 ALISA Last Admin: 06/02/17 08:26 Dose: 3 ml Calcium Acetate (Phoslo) 667 mg PO TIDCC ALISA Last Admin: 06/02/17 07:42 Dose: 667 mg Diltiazem HCl (Cardizem) 30 mg PO Q6H ALISA Last Admin: 06/02/17 06:28 Dose: Not Given Dorzolamide HCl (Trusopt) 10 ml OU TID [facility] Last Admin: 06/02/17 09:46 Dose: 1 drop Furosemide (Lasix) 40 mg IVP DAILY [facility] Last Admin: 06/01/17 13:43 Dose: Not Given Piperacillin Sod/Tazobactam Sod (Zosyn 3.375 Gm Iv Premix) 3.375 gm in 50 mls @ 100 mls/hr IVPB Q8H [facility] Last Admin: 06/02/17 03:41 Dose: 100 mls/hr Norepinephrine Bitartrate 4 mg (/ Sodium Chloride) 254 mls @ 15.24 mls/hr IV .[id number] PRN; Protocol; 4 MCG/MIN PRN Reason: TITRATE PER MD ORDER Last Titration: 06/02/17 01:00 Dose: 4 mcg/min, 15.24 mls/hr Sodium Chloride (Sodium Chloride 0.9%) 1,000 mls @ 150 mls/hr IV .Q6H40M [facility] Last Admin: 06/02/17 06:28 Dose: Not Given Linezolid (Zyvox 600mg/300ml D5w) 600 mg in 300 mls @ 200 mls/hr IVPB Q12 [facility] Last Admin: 06/02/17 09:47 Dose: 200 mls/hr Metronidazole (Flagyl) 250 mg PO Q8H [facility] Last Admin: 06/02/17 06:28 Dose: 250 mg Montelukast Sodium (Singulair) 10 mg PO DAILY [facility] Last Admin: 06/02/17 09:46 Dose: 10 mg Multivitamins (Hexavitamin) 1 tab PO DAILY [facility] Last Admin: 06/02/17 09:45 Dose: 1 tab Nystatin (Nystop Topical Powder) 1 applic TOP TID [facility] Last Admin: 06/02/17 09:45 Dose: 1 pow Pantoprazole Sodium (Protonix Susp) 40 mg NG DAILY [facility] Last Admin: 06/02/17 09:46 Dose: 40 mg Rosuvastatin Calcium (Crestor) 10 mg PO HS [facility] Last Admin: 06/01/17 21:37 Dose: 10 mg - Labs Labs: 06/02/17 06:19 06/02/17 06:19 - Constitutional Appears: No Acute Distress, Other (intubated sedated) - Head Exam Head Exam: NORMAL INSPECTION - Eye Exam Eye Exam: Normal appearance - ENT Exam Additional comments: et tube - Neck Exam Neck Exam: Normal Inspection (mechanical vent sounds) - Respiratory Exam Respiratory Exam: NORMAL BREATHING PATTERN - GI/Abdominal Exam GI & Abdominal Exam: Distended, Soft - Extremities Exam Extremities Exam: Pedal Edema Assessment and Plan (1) CEZAR (acute kidney injury) Status: Acute (2) Acute respiratory failure Status: Acute (3) Atrial fibrillation, new onset Status: Acute (4) COPD exacerbation Status: Acute (5) Change in mental state Status: Acute (6) Elevated WBCs Status: Acute - Assessment and Plan (Free Text) Assessment: recommend hd, spoke with son carlos eduardo, agrees to hd needs catheter hold acei / diuretics
--- NOTE | 2017-06-02 13:11 | CP.PCM.PN ---
Subjective - Date & Time of Evaluation Date of Evaluation: 06/02/17 Time of Evaluation: 12:00 - Subjective Subjective: Patient remains intubated at this time. From my discussion with ICU staff the patient will be getting another unit of PRBC Currently remains on pressor norepinephrine, blood pressure is more stable now. Not on sedation. She did open and then close her eyes when name is called. When I saw her she was not following any commands in [place] nor moving her arms or legs like previously. There are currently plans for HD, her urine output has been decreasing. Objective - Vital Signs/Intake and Output Vital Signs (last 24 hours): Temp Pulse Resp BP Pulse Ox 98.2 F 101 H 20 122/49 L 100 06/02/17 12:16 06/02/17 12:16 06/02/17 12:16 06/02/17 12:16 06/02/17 12:05 Intake and Output: 06/02/17 06/02/17 06:59 18:59 Intake Total 2339.2 775.2 Output Total 85 44 Balance 2254.2 731.2 - Medications Medications: Current Medications Acetylcysteine (Acetylcysteine 20%) 4 ml INH RQ6 [facility] Last Admin: 06/02/17 08:26 Dose: 4 ml Albuterol/Ipratropium (Duoneb 3 Mg/0.5 Mg (3 Ml) Ud) 3 ml INH RQ6 [facility] Last Admin: 06/02/17 08:26 Dose: 3 ml Calcium Acetate (Phoslo) 667 mg PO TIDCC [facility] Last Admin: 06/02/17 11:43 Dose: 667 mg Diltiazem HCl (Cardizem) 30 mg PO Q6H [facility] Last Admin: 06/02/17 11:44 Dose: Not Given Dorzolamide HCl (Trusopt) 10 ml OU TID [facility] Last Admin: 06/02/17 09:46 Dose: 1 drop Furosemide (Lasix) 40 mg IVP DAILY [facility] Last Admin: 06/02/17 10:13 Dose: 40 mg Piperacillin Sod/Tazobactam Sod (Zosyn 3.375 Gm Iv Premix) 3.375 gm in 50 mls @ 100 mls/hr IVPB Q8H [facility] Last Admin: 06/02/17 11:44 Dose: 100 mls/hr Norepinephrine Bitartrate 4 mg (/ Sodium Chloride) 254 mls @ 15.24 mls/hr IV .[id number] PRN; Protocol; 4 MCG/MIN PRN Reason: TITRATE PER MD ORDER Last Titration: 06/02/17 12:31 Dose: 2 mcg/min, 7.62 mls/hr Sodium Chloride (Sodium Chloride 0.9%) 1,000 mls @ 150 mls/hr IV .Q6H40M [facility] Last Admin: 06/02/17 06:28 Dose: Not Given Linezolid (Zyvox 600mg/300ml D5w) 600 mg in 300 mls @ 200 mls/hr IVPB Q12 [facility] Last Admin: 06/02/17 09:47 Dose: 200 mls/hr Metronidazole (Flagyl) 250 mg PO Q8H [facility] Last Admin: 06/02/17 12:35 Dose: 250 mg Montelukast Sodium (Singulair) 10 mg PO DAILY [facility] Last Admin: 06/02/17 09:46 Dose: 10 mg Multivitamins (Hexavitamin) 1 tab PO DAILY [facility] Last Admin: 06/02/17 09:45 Dose: 1 tab Nystatin (Nystop Topical Powder) 1 applic TOP TID [facility] Last Admin: 06/02/17 09:45 Dose: 1 pow Pantoprazole Sodium (Protonix Susp) 40 mg NG DAILY [facility] Last Admin: 06/02/17 09:46 Dose: 40 mg Rosuvastatin Calcium (Crestor) 10 mg PO HS [facility] Last Admin: 06/01/17 21:37 Dose: 10 mg - Labs Labs: 06/02/17 06:19 06/02/17 06:19 - Constitutional Appears: Unkempt, Cachectic, Chronically Ill - ENT Exam ENT Exam: Mucous Membranes Moist - Respiratory Exam Respiratory Exam: Decreased Breath Sounds, Rhonchi - Cardiovascular Exam Cardiovascular Exam: Irregular Rhythm - GI/Abdominal Exam GI & Abdominal Exam: Soft, Normal Bowel Sounds - Extremities Exam Extremities Exam: Pedal Edema - Neurological Exam Neurological Exam: Alert, Altered, Awake Neuro motor strength exam: Left Upper Extremity: 3, Right Upper Extremity: 3 - Psychiatric Exam Psychiatric exam: Depressed, Flat Affect - Skin Skin Exam: Pallor, Warm Assessment and Plan - Assessment and Plan (Free Text) Assessment: (1) Acute respiratory failure with hypoxia and hypercapnia 06/02: Remains intubated, on IV pressor medications. Blood pressure better now. There are plans for HD to see if this can help remove fluid from lungs 06/01 Now re-intubated after patient became hypoxcic 05/30: Currently on weaning trial. 05/29: Currently patient remains on mechanical ventilator. Review of the blood gases show no longer acidemic or CO2 retaining. Hopefully can be weaned soon. Likey complications from CO2 and CHF as well as pneumonia. (2) Pneumonia - questionable area on the right lower lobe seen on CT done on 06/02: Signifigtanly elevated WBC. Now changed to Zyvox and Zosyn IV 05/30: WBC is only decreased slightly. There is still large left shift. Afebrile. IV Zosyn started on 05/26 and IV Vanco started 05/27. 05/29: Remains on IV abx Zosyn and Vancomycin - the WBC is 14. Currently afebrile and also blood and sputum cultures are negative (3) Acute on chronic kidney injury 06/02: There are plans for HD to be started (4) COPD exacerbation 05/29: On nebulizers and twice a day solumedrol (5) Atrial fibrillation, new onset 06/02: Because of the anemia has been off lovenox. 05/30: HR has been in the 90s atrial fibrillation. Rate controlled now. Continue Cardizem by mouth for rate control. Patient is on therapeutic anticoagulation with Lovenox as there is a high CHADs score (6) CHF (congestive heart failure) 05/29: Continue following CXRAYs, urine ins and outs. Patient is getting lasix BID and also is on vasotech. (7) History of hyperlipidemia
[2017-06-02] MEDS: Piperacill/Tazo 2.25gm in Dex 2.25 GM/50 ML BAG IVPB SCH ×2 (14:29→22:47)
[2017-06-02] MEDS ORDERED: Propofol 10 mg/ml Inj (20 ML) IVP ONE (16:45)
[2017-06-02] MEDS ORDERED: Propofol 10 mg/ml Inj (20 ML) ONE (16:45)
--- NOTE | 2017-06-02 18:15 | PCM.PROC ---
Procedures Attestation:: I certify that I have explained the specified Operation(s) or Procedure(s), risks, benefits and reasonable alternatives to the Patient and/or other person responsible. The opportunity was given to ask questions and all questions answered - Central Line Placement Right Femoral Hemodialysis Access Aseptic technique was employed throughout the procedure: Hand Hygiene done prior to procedure, Full sterile barriers (mask, hair cover, sterile gown, sterile gloves), Full body sterile drape, Chloraprep Antiseptic: 2 minute prep for Femoral CVP Time Out Performed: Yes Pt. Placed on Pulse Ox Monitor: Yes Central Line Prep: Chlorhexidine-Alcohol Combination Local Anesthesia Used: Lidocaine 1% Amount of Anesthesia Used (mls): 5 Ultrasound Used for Placement: No Central Line Lumen Inserted: double Central Line Length: 16 cm Post Procedure: Sutured in Place, Good Blood Return, All Ports Aspirated, Flushed, Capped, Sterile Dressing Applied Secured by: Suture Post procedure dressing: Chlorhexidine disc (Biopatch) Post Procedure X-Ray: No Patient Tolerated Procedure: Well
[2017-06-02 18:58] LABS: ABG ALLEN TEST POS; ARTERIAL BLOOD GAS MODE A/C; ARTERIAL BLOOD HGB O2 SAT 96.8 % (95.0-98.0); ATERIAL BLOOD GAS PEEP 5; CARBOXYHEMOGLOBIN 1.9 % (0.5-1.5); DRAW SITE RRA; HHB 0.3 % (0.0-5.0); METHEMOGLOBIN 1.1 % (0.0-3.0)
--- NOTE | 2017-06-02 22:52 | CP.PCM.CON ---
History of Present Illness - History of Present Illness History of Present Illness: dictated Past Patient History - Past Medical History & Family History Past Medical History?: Yes Past Family History: Reviewed and not pertinent - Past Social History Smoking Status: Never Smoked Chewing Tobacco Use: No Cigar Use: No Alcohol: None Home Situation {Lives}: Retirement - CARDIAC Hx Hypertension: Yes - PULMONARY Hx Asthma: Yes Hx Chronic Obstructive Pulmonary Disease (COPD): Yes - NEUROLOGICAL Hx Dementia: Yes - RENAL Hx Chronic Kidney Disease: No - ENDOCRINE/METABOLIC Hx Endocrine Disorders: No - HEMATOLOGICAL/ONCOLOGICAL Hx Blood Disorders: No - INTEGUMENTARY Hx Dermatological Problems: No - MUSCULOSKELETAL/RHEUMATOLOGICAL Hx Degenerative Joint Disease: Yes Hx Osteoarthritis: Yes - GASTROINTESTINAL Hx Gastrointestinal Disorders: No - GENITOURINARY/GYNECOLOGICAL Hx Genitourinary Disorders: No - PSYCHIATRIC Hx Substance Use: No - SURGICAL HISTORY Hx Surgeries: Yes Hx Cataract Extraction: Yes Hx Herniorrhaphy: Yes (Umbilical) - ANESTHESIA Hx Anesthesia: Yes Hx Anesthesia Reactions: No Meds Allergies/Adverse Reactions: Allergies Allergy/AdvReac Type Severity Reaction Status Date / Time No Known Allergies Allergy Unverified 05/22/17 09:31 - Medications Medications: Current Medications Acetylcysteine (Acetylcysteine 20%) 4 ml INH RQ6 [facility] Last Admin: 06/02/17 20:14 Dose: 4 ml Albuterol/Ipratropium (Duoneb 3 Mg/0.5 Mg (3 Ml) Ud) 3 ml INH RQ6 [facility] Last Admin: 06/02/17 20:14 Dose: 3 ml Calcium Acetate (Phoslo) 667 mg PO TIDCC [facility] Last Admin: 06/02/17 16:21 Dose: 667 mg Diltiazem HCl (Cardizem) 30 mg PO Q6H [facility] Last Admin: 06/02/17 17:11 Dose: Not Given Dorzolamide HCl (Trusopt) 10 ml OU TID [facility] Last Admin: 06/02/17 17:10 Dose: 1 drop Furosemide (Lasix) 40 mg IVP DAILY [facility] Last Admin: 06/02/17 10:13 Dose: 40 mg Norepinephrine Bitartrate 4 mg (/ Sodium Chloride) 254 mls @ 15.24 mls/hr IV .[id number] PRN; Protocol; 4 MCG/MIN PRN Reason: TITRATE PER MD ORDER Last Titration: 06/02/17 16:00 Dose: 2 mcg/min, 7.62 mls/hr Sodium Chloride (Sodium Chloride 0.9%) 1,000 mls @ 150 mls/hr IV .Q6H40M [facility] Last Admin: 06/02/17 22:49 Dose: Not Given Linezolid (Zyvox 600mg/300ml D5w) 600 mg in 300 mls @ 200 mls/hr IVPB Q12 [facility] Last Admin: 06/02/17 22:47 Dose: 200 mls/hr Piperacillin Sod/Tazobactam Sod (Zosyn 2.25 Gm Iv Premix) 2.25 gm in 50 mls @ 100 mls/hr IVPB Q8H [facility] Last Admin: 06/02/17 22:47 Dose: 100 mls/hr Metronidazole (Flagyl) 250 mg PO Q8H [facility] Last Admin: 06/02/17 12:35 Dose: 250 mg Montelukast Sodium (Singulair) 10 mg PO DAILY [facility] Last Admin: 06/02/17 09:46 Dose: 10 mg Multivitamins (Hexavitamin) 1 tab PO DAILY [facility] Last Admin: 06/02/17 09:45 Dose: 1 tab Nystatin (Nystop Topical Powder) 1 applic TOP TID [facility] Last Admin: 06/02/17 17:10 Dose: 1 pow Pantoprazole Sodium (Protonix Susp) 40 mg NG DAILY [facility] Last Admin: 06/02/17 09:46 Dose: 40 mg Rosuvastatin Calcium (Crestor) 10 mg PO HS [facility] Last Admin: 06/02/17 22:47 Dose: 10 mg Results - Vital Signs Recent Vital Signs: Last Vital Signs Temp 98 F 06/02/17 21:35 Pulse 107 H 06/02/17 22:33 Resp 22 06/02/17 22:33 BP 120/79 06/02/17 22:33 Pulse Ox 98 06/02/17 21:35 - Labs Result Diagrams: 06/02/17 06:19 06/02/17 06:19 Labs: Laboratory Results - last 24 hr 06/01/17 06/02/17 06/02/17 06:53 06:19 06:19 WBC 37.4 H* RBC 2.75 L Hgb 7.7 L Hct 23.7 L MCV 86.5 MCH 28.2 MCHC 32.6 L RDW 16.4 H Plt Count 185 MPV 10.4 Neut % (Auto) 82.7 H Lymph % (Auto) 8.6 L Garvin % (Auto) 6.3 Eos % (Auto) 1.9 Baso % (Auto) 0.5 Neut # 31.0 H Lymph # 3.2 Garvin # 2.3 H Eos # 0.7 Baso # 0.2 Neutrophils % (Manual) 79 H Band Neutrophils % 3 H Lymphocytes % (Manual) 10 L Monocytes % (Manual) 7 Eosinophils % (Manual) 1 Platelet Estimate Normal Large Platelets Present Polychromasia Slight Hypochromasia (manual) Slight Poikilocytosis (manual Slight Anisocytosis (manual) Slight Macrocytosis (manual) Slight Lissett Cells Slight Puncture Site pCO2 pO2 HCO3 ABG pH ABG Total CO2 ABG O2 Saturation ABG Base Excess ABG Hemoglobin ABG Carboxyhemoglobin POC ABG HHb (Measured) ABG Methemoglobin Sj Test A-a O2 Difference Respiratory Index Hgb O2 Saturation Vent Mode FiO2 Tidal Volume PEEP Sodium 146 Potassium 4.1 Chloride 109 H Carbon Dioxide 22 Anion Gap 19 BUN 100 H* Creatinine 3.7 H Est GFR ( Amer) 14 Est GFR (Non-Af Amer) 12 Random Glucose 106 H Calcium 6.9 L Phosphorus 9.5 H Magnesium 2.6 H Total Bilirubin 1.2 AST 93 H ALT 74 H Alkaline Phosphatase 33 L Total Protein 4.2 L Albumin 2.2 L Globulin 2.0 L Albumin/Globulin Ratio 1.1 Procalcitonin Stool Occult Blood Hep Bs Antigen Hep Bs Antibody Hep B Core IgM Ab Hepatitis C Antibody Blood Type A POSITIVE Blood Type Confirm A POSITIVE Antibody Screen Negative 06/02/17 06/02/17 06/02/17 10:16 14:11 18:50 WBC RBC Hgb Hct MCV MCH MCHC RDW Plt Count MPV Neut % (Auto) Lymph % (Auto) Garvin % (Auto) Eos % (Auto) Baso % (Auto) Neut # Lymph # Garvin # Eos # Baso # Neutrophils % (Manual) Band Neutrophils % Lymphocytes % (Manual) Monocytes % (Manual) Eosinophils % (Manual) Platelet Estimate Large Platelets Polychromasia Hypochromasia (manual) Poikilocytosis (manual Anisocytosis (manual) Macrocytosis (manual) Austin Cells Puncture Site Rra pCO2 37 pO2 121 H HCO3 24.6 ABG pH 7.42 ABG Total CO2 25.1 ABG O2 Saturation 99.7 H ABG Base Excess -0.4 ABG Hemoglobin 8.0 L ABG Carboxyhemoglobin 1.9 H POC ABG HHb (Measured) 0.3 ABG Methemoglobin 1.1 Sj Test Pos A-a O2 Difference 189.0 Respiratory Index 1.6 Hgb O2 Saturation 96.8 Vent Mode A/c FiO2 50.0 Tidal Volume 500 PEEP 5 Sodium Potassium Chloride Carbon Dioxide Anion Gap BUN Creatinine Est GFR ( Amer) Est GFR (Non-Af Amer) Random Glucose Calcium Phosphorus Magnesium Total Bilirubin AST ALT Alkaline Phosphatase Total Protein Albumin Globulin Albumin/Globulin Ratio Procalcitonin 1.08 H Stool Occult Blood Positive H Hep Bs Antigen Hep Bs Antibody Hep B Core IgM Ab Hepatitis C Antibody Blood Type Blood Type Confirm Antibody Screen 06/02/17 06/02/17 20:27 20:27 WBC RBC Hgb Hct MCV MCH MCHC RDW Plt Count MPV Neut % (Auto) Lymph % (Auto) Garvin % (Auto) Eos % (Auto) Baso % (Auto) Neut # Lymph # Garvin # Eos # Baso # Neutrophils % (Manual) Band Neutrophils % Lymphocytes % (Manual) Monocytes % (Manual) Eosinophils % (Manual) Platelet Estimate Large Platelets Polychromasia Hypochromasia (manual) Poikilocytosis (manual Anisocytosis (manual) Macrocytosis (manual) Lissett Cells Puncture Site pCO2 pO2 HCO3 ABG pH ABG Total CO2 ABG O2 Saturation ABG Base Excess ABG Hemoglobin ABG Carboxyhemoglobin POC ABG HHb (Measured) ABG Methemoglobin Sj Test A-a O2 Difference Respiratory Index Hgb O2 Saturation Vent Mode FiO2 Tidal Volume PEEP Sodium Potassium Chloride Carbon Dioxide Anion Gap BUN Creatinine Est GFR ( Amer) Est GFR (Non-Af Amer) Random Glucose Calcium Phosphorus Magnesium Total Bilirubin AST ALT Alkaline Phosphatase Total Protein Albumin Globulin Albumin/Globulin Ratio Procalcitonin Stool Occult Blood Hep Bs Antigen Negative Hep Bs Antibody Negative Hep B Core IgM Ab Negative Hepatitis C Antibody Negative Blood Type Blood Type Confirm Antibody Screen
--- NOTE | 2017-06-02 23:22 | CP.PCM.PN ---
Subjective - Date & Time of Evaluation Date of Evaluation: 06/02/17 Time of Evaluation: 15:10 - Subjective Subjective: CCU Subjective - Physician Review Subjective (Free Text): Patient seen and examined at bedside. Patient is intubated and sedated. Patient was re-intubated yesterday. She appears more responsive than yesterday, responding to verbal stimuli. Per nursing staff, overnight patient's A line fell out and patient had loose bowel movement - c.diff negative. She remains easily arousable. Full ROS not obtained due to current status. Case discussed with house-staff; medical records and chart reviewed and labs discussed. 06/02/17 15:46 CCU Objective - Vital Signs / Intake & Output Vital Signs (Last 4 hours): Vital Signs Pulse Resp BP Pulse Ox 06/02/17 06:30 107 H 21 100 06/02/17 06:04 104 H 20 111/41 L 100 06/02/17 06:00 111 H 20 100 06/02/17 05:49 106 H 20 119/42 L 100 06/02/17 05:34 107 H 20 113/45 L 100 06/02/17 05:30 109 H 21 100 06/02/17 05:20 106 H 20 116/32 L 100 06/02/17 05:04 111 H 21 100/47 L 100 06/02/17 05:01 107 H 16 90/51 L 99 06/02/17 05:00 107 H 21 100 06/02/17 04:49 103 H 17 92/56 L 100 06/02/17 04:36 111 H 21 107/32 L 100 06/02/17 04:34 106 H 19 117/30 L 99 06/02/17 04:30 114 H 22 100 06/02/17 04:19 106 H 21 109/45 L 100 Intake and Output (Last 8hrs): Intake & Output 06/01/17 06/02/17 06/02/17 22:59 06:59 14:59 Intake Total 1892.0 1394.0 Output Total 15 80 Balance 1877.0 1314.0 Weight 264 lb Intake: IV 244 20 Intake, IV Amount 1323.0 1374.0 Right Distal Port 1100 1250 Internal Jugular Right Medial Port 223.0 124.0 Internal Jugular Blood Product 325 Red Blood Cells Cpd As1 325 Lr Unit [id number] Output: Urine 15 80 Urethral (Saenz) 15 80 Other: # Bowel Movements 1 - Physical Exam Head: Positive for: Atraumatic, Normocephalic Pupils: Positive for: PERRL Extroacular Muscles: Positive for: EOMI Mouth: Positive for: Moist Mucous Membranes Respiratory/Chest: Positive for: Decreased Breath Sounds (at bases) Cardiovascular: Positive for: Regular Rate and Rhythm, Normal S1, S2 Abdomen: Positive for: Normal Bowel Sounds. Negative for: Tenderness Upper Extremity: Positive for: Edema, Swelling, Other (ecchymosis b/l; faint pulses bilaterally) Lower Extremity: Positive for: NORMAL PULSES Neurological: Positive for: GCS=15, Other (follows commands) Skin: Positive for: Other (Ecchymosis on bilateral upper extremities) Psychiatric: Positive for: Alert Objective - Vital Signs/Intake and Output Vital Signs (last 24 hours): Temp Pulse Resp BP Pulse Ox 98 F 113 H 20 106/49 L 100 06/02/17 21:35 06/02/17 23:04 06/02/17 23:04 06/02/17 23:04 06/02/17 23:04 Intake and Output: 06/02/17 06/03/17 18:59 06:59 Intake Total 2648.3 787.5 Output Total 306 175 Balance 2342.3 612.5 - Medications Medications: Current Medications Acetylcysteine (Acetylcysteine 20%) 4 ml INH RQ6 [facility] Last Admin: 06/02/17 20:14 Dose: 4 ml Albuterol/Ipratropium (Duoneb 3 Mg/0.5 Mg (3 Ml) Ud) 3 ml INH RQ6 [facility] Last Admin: 06/02/17 20:14 Dose: 3 ml Calcium Acetate (Phoslo) 667 mg PO TIDCC [facility] Last Admin: 06/02/17 16:21 Dose: 667 mg Diltiazem HCl (Cardizem) 30 mg PO Q6H [facility] Last Admin: 06/02/17 17:11 Dose: Not Given Dorzolamide HCl (Trusopt) 10 ml OU TID [facility] Last Admin: 06/02/17 17:10 Dose: 1 drop Furosemide (Lasix) 40 mg IVP DAILY [facility] Last Admin: 06/02/17 10:13 Dose: 40 mg Norepinephrine Bitartrate 4 mg (/ Sodium Chloride) 254 mls @ 15.24 mls/hr IV .[id number] PRN; Protocol; 4 MCG/MIN PRN Reason: TITRATE PER MD ORDER Last Titration: 06/02/17 16:00 Dose: 2 mcg/min, 7.62 mls/hr Sodium Chloride (Sodium Chloride 0.9%) 1,000 mls @ 150 mls/hr IV .Q6H40M [facility] Last Admin: 06/02/17 22:49 Dose: Not Given Linezolid (Zyvox 600mg/300ml D5w) 600 mg in 300 mls @ 200 mls/hr IVPB Q12 [facility] Last Admin: 06/02/17 22:47 Dose: 200 mls/hr Piperacillin Sod/Tazobactam Sod (Zosyn 2.25 Gm Iv Premix) 2.25 gm in 50 mls @ 100 mls/hr IVPB Q8H [facility] Last Admin: 06/02/17 22:47 Dose: 100 mls/hr Metronidazole (Flagyl) 250 mg PO Q8H [facility] Last Admin: 06/02/17 12:35 Dose: 250 mg Montelukast Sodium (Singulair) 10 mg PO DAILY [facility] Last Admin: 06/02/17 09:46 Dose: 10 mg Multivitamins (Hexavitamin) 1 tab PO DAILY [facility] Last Admin: 06/02/17 09:45 Dose: 1 tab Nystatin (Nystop Topical Powder) 1 applic TOP TID [facility] Last Admin: 06/02/17 17:10 Dose: 1 pow Pantoprazole Sodium (Protonix Susp) 40 mg NG DAILY [facility] Last Admin: 06/02/17 09:46 Dose: 40 mg Rosuvastatin Calcium (Crestor) 10 mg PO HS [facility] Last Admin: 06/02/17 22:47 Dose: 10 mg - Labs Labs: 06/02/17 06:19 06/02/17 06:19 Assessment and Plan - Assessment and Plan (Free Text) Assessment: (1) Acute respiratory failure with hypoxia and hypercapnia 06/02: Remains intubated, on IV pressor medications. Blood pressure better now. There are plans for HD to see if this can help remove fluid from lungs 06/01 Now re-intubated after patient became hypoxcic 05/30: Currently on weaning trial. 05/29: Currently patient remains on mechanical ventilator. Review of the blood gases show no longer acidemic or CO2 retaining. Hopefully can be weaned soon. Likey complications from CO2 and CHF as well as pneumonia. (2) Pneumonia - questionable area on the right lower lobe seen on CT done on 06/02: Signifigtanly elevated WBC. Now changed to Zyvox and Zosyn IV 05/30: WBC is only decreased slightly. There is still large left shift. Afebrile. IV Zosyn started on 05/26 and IV Vanco started 05/27. 05/29: Remains on IV abx Zosyn and Vancomycin - the WBC is 14. Currently afebrile and also blood and sputum cultures are negative (3) Acute on chronic kidney injury 06/02: There are plans for HD to be started (4) COPD exacerbation 05/29: On nebulizers and twice a day solumedrol (5) Atrial fibrillation, new onset 06/02: Because of the anemia has been off lovenox. 05/30: HR has been in the 90s atrial fibrillation. Rate controlled now. Continue Cardizem by mouth for rate control. Patient is on therapeutic anticoagulation with Lovenox as there is a high CHADs score (6) CHF (congestive heart failure) 05/29: Continue following CXRAYs, urine ins and outs. Patient is getting lasix BID and also is on vasotech. (7) History of hyperlipidemia
[2017-06-03] MEDS: Albuterol-Ipratrop 3 mg / 0.5 (3 ml) UD INH SCH ×4 (01:10→19:23)
[2017-06-03] MEDS: Acetylcysteine 20% Inhal Soln (4ml) INH SCH ×5 (01:10→19:23)
[2017-06-03] MEDS: Sodium Chloride 0.9% 1,000 ML IV SCH ×2 (02:46→07:44)
[2017-06-03] MEDS: Piperacill/Tazo 2.25gm in Dex 2.25 GM/50 ML BAG IVPB SCH ×3 (05:39→21:42)
[2017-06-03 06:06] LABS: ABG ALLEN TEST POS; ABG MECHANICAL RATE 20; ARTERIAL BLOOD GAS MODE PRVC; ARTERIAL BLOOD HGB O2 SAT 97.4 % (95.0-98.0); ATERIAL BLOOD GAS PEEP 5; CARBOXYHEMOGLOBIN 1.9 % (0.5-1.5); DRAW SITE R RAD; HHB -0.2 % (0.0-5.0); METHEMOGLOBIN 0.8 % (0.0-3.0)
[2017-06-03 06:32] LABS: BASO # 0.1 K/uL (0.0-0.2); BASO % 0.2 % (0.0-2.0); EOS # 0.2 K/uL (0.0-0.7); EOS % 0.8 % (0.0-4.0); HEMATOCRIT 21.8 % (34.0-47.0); LYMPH # 2.2 K/uL (1.0-4.3); LYMPH % 8.6 % (20.0-40.0); MEAN CELL VOLUME 87.7 fL (81.0-99.0); MEAN CORPUSCULAR HEMOGLOBIN 27.6 pg (27.0-31.0); MEAN CORPUSCULAR HGB CONC 31.4 g/dL (33.0-37.0); MEAN PLATELET VOLUME 9.7 fL (7.2-11.7); MONO # 1.4 K/uL (0.0-0.8); MONO % 5.4 % (0.0-10.0); NRBC % 0.7 % (0.0-2.0); PLATELET COUNT 133 K/uL (130-400); WHITE BLOOD COUNT 25.6 K/uL (4.8-10.8)
[2017-06-03 06:37] LABS: POTASSIUM 3.4 mmol/L (3.6-5.2)
--- NOTE | 2017-06-03 06:38 | CON ---
INFECTIOUS DISEASE CONSULT DATE: REQUESTING PHYSICIAN: Rich Puri DO HISTORY OF PRESENT ILLNESS: She is a 76-year-old female. She has a history of COPD, asthma, hypertension, cardiomegaly, and dementia. She has renal insufficiency and she has been intubated and extubated and then reintubated yesterday and she was brought in with shortness of breath. Initially, she is in ICU. She is Dr. Costa's patient otherwise. PAST MEDICAL HISTORY: Significant for COPD, asthma, cardiomegaly, and dementia. PAST SURGICAL HISTORY: Cataract, abdominal hernia surgery 30 years ago, and bilateral tubal ligation. She has COPD and was extubated and then reintubated because of respiratory distress and I am asked to evaluate her. REVIEW OF SYSTEMS: I am not able to get any review of systems for her. She remains intubated. History is taken mostly from the chart. SOCIAL HISTORY: She never smoked. She comes from the senior care. She has COPD and asthma. She does not have any kidney problems in the past and dementia. No GI problems reported. She has osteoarthritis. ALLERGIES: SHE IS NOT ALLERGIC TO ANY MEDICINES. MEDICATIONS: Right now, she is on acetylcysteine, DuoNeb, calcium acetate, diltiazem, Trusopt, and Lasix. She is on Zyvox, Flagyl, Singulair, hexavitamin, norepinephrine, nystatin, pantoprazole, Zosyn, and she is on Crestor. PHYSICAL EXAMINATION: GENERAL: She was sedated and intubated. She has triple lumen on the right IJ. VITAL SIGNS: She had temperature of 98, heart rate of 120, blood pressure 79/49 and 90/45, and respirations are 26. HEENT: Head is atraumatic and normocephalic. NECK: Supple. LUNGS: With decreased breath sounds, occasional rhonchi. HEART: S1 and S2, irregularly irregular. ABDOMEN: Soft, flabby, and obese. EXTREMITIES: Bilateral edema present. Upper extremities had areas of ecchymosis in the right arm noted. LABORATORY DATA: Labs noted. Labs show white count is 37.4, hemoglobin is 7.7, hematocrit is 23.7, and platelet count is 185. The medical student told me the stool guaiac was positive and so she is severely anemic. Sodium 146, potassium 4.1, chloride 109, CO2 of 22, BUN 100, and creatinine 3.7. She has renal insufficiency and her procalcitonin level is 1.08. Stool guaiac is positive. We have asked for a sputum culture again and micro hanley, her sputum and blood cultures from before were negative however, was repeated sputum culture and she has a rarely high white count. We are covering with antibiotics at this time and we will follow and she has an acute renal insufficiency at this time and also had hemodialysis once ordered for today. We will follow. The patient has acute respiratory failure with intubation, COPD, pneumonia, and acute renal insufficiency. Hellen Ospina MD
[2017-06-03 06:39] LABS: ALB/GLOB RATIO 1.1 (1.0-2.1); BILIRUBIN,TOTAL 0.8 mg/dL (0.2-1.3); TOTAL PROTEIN 4.2 g/dL (6.3-8.3)
[2017-06-03 06:40] LABS: CALCIUM 7.3 mg/dl (8.6-10.4); MAGNESIUM 2.3 mg/dL (1.6-2.3)
--- NOTE | 2017-06-03 07:19 | CP.CCUPN ---
CCU Subjective - Physician Review Subjective (Free Text): Patient seen and examined at bedside. Patient is intubated and sedated. Patient was re-intubated yesterday. She appears more responsive than yesterday, responding to verbal stimuli. Per nursing staff, she continues to have loose bowel movements; C. diff toxin negative. She remains easily arousable. Full ROS not obtained due to current status. Case discussed with house-staff; medical records and chart reviewed and labs discussed. 06/03/17 09:58 CCU Objective - Vital Signs / Intake & Output Vital Signs (Last 4 hours): Vital Signs Temp Pulse Resp BP Pulse Ox 06/03/17 07:05 110/45 L 06/03/17 07:04 96 H 20 100 06/03/17 07:00 96 H 18 100 06/03/17 06:15 97 H 20 148/56 L 100 06/03/17 06:04 90 20 97/43 L 100 06/03/17 06:00 96 H 20 100 06/03/17 05:05 92 H 20 108/43 L 100 06/03/17 05:00 91 H 20 100 06/03/17 04:04 94 H 20 113/44 L 100 06/03/17 04:00 98.6 F 96 H 20 100 Intake and Output (Last 8hrs): Intake & Output 06/02/17 06/03/17 06/03/17 22:59 06:59 14:59 Intake Total 1406.3 1490.25 180 Output Total 282 205 20 Balance 1124.3 1285.25 160 Weight 132 lb 12.8 oz 260 lb Intake: IV 150 4 Intake, IV Amount 1256.3 1276.25 150 Right Distal Port 1200 1250 150 Internal Jugular Right Medial Port 56.3 26.25 Internal Jugular Tube Feeding 210 30 Output: Urine 282 205 20 Urethral (Saenz) 282 205 20 Other: # Bowel Movements 0 1 - Physical Exam Head: Positive for: Atraumatic, Normocephalic Pupils: Positive for: PERRL Extroacular Muscles: Positive for: EOMI Mouth: Positive for: Moist Mucous Membranes Respiratory/Chest: Positive for: Decreased Breath Sounds (at bases) Cardiovascular: Positive for: Regular Rate and Rhythm, Normal S1, S2 Abdomen: Positive for: Normal Bowel Sounds. Negative for: Tenderness Upper Extremity: Positive for: Edema, Swelling, Other (ecchymosis b/l; faint pulses bilaterally) Lower Extremity: Positive for: NORMAL PULSES Neurological: Positive for: GCS=15, Other (follows commands) Skin: Positive for: Other (Ecchymosis on bilateral upper extremities) Psychiatric: Positive for: Alert - Medications Active Medications: Active Medications Generic Name Dose Route Start Last Admin Trade Name Freq PRN Reason Stop Dose Admin Acetylcysteine 4 ml 05/25/17 09:15 06/03/17 01:10 Acetylcysteine 20% INH 4 ml RQ6 ALISA Administration Albuterol/Ipratropium 3 ml 05/28/17 18:45 06/03/17 01:10 Duoneb 3 Mg/0.5 Mg (3 Ml) Ud INH 3 ml RQ6 ALIAS Administration Calcium Acetate 667 mg 06/01/17 17:00 06/02/17 16:21 Phoslo PO 667 mg TIDCC ALISA Administration Diltiazem HCl 30 mg 05/26/17 12:00 06/03/17 05:57 Cardizem PO Not Given Q6H ALISA Dorzolamide HCl 10 ml 05/22/17 18:00 06/02/17 17:10 Trusopt OU 1 drop TID ALISA Administration Furosemide 40 mg 06/01/17 10:00 06/02/17 10:13 Lasix IVP 40 mg DAILY ALISA Administration Norepinephrine Bitartrate 4 mg 254 mls @ 15.24 mls/hr 06/01/17 12:50 03:00 / Sodium Chloride IV 0 mcg/min .[id number] PRN 0 mls/hr TITRATE PER MD ORDER Titration Protocol 4 MCG/MIN Sodium Chloride 1,000 mls @ 150 mls/hr 06/01/17 16:49 06/03/17 02:46 Sodium Chloride 0.9% IV Not Given .[id number] ALISA Linezolid 600 mg in 300 mls @ 200 mls/hr 06/01/17 22:00 06/02/17 22:47 Zyvox 600mg/300ml D5w IVPB 200 mls/hr Q12 ALISA Administration Piperacillin Sod/Tazobactam Sod 2.25 gm in 50 mls @ 100 mls/hr 06/02/17 14:30 06/03/17 05:39 Zosyn 2.25 Gm Iv Premix IVPB 100 mls/hr Q8H ALISA Administration Metronidazole 250 mg 06/01/17 21:00 06/03/17 04:38 Flagyl PO 250 mg Q8H ALISA Administration Montelukast Sodium 10 mg 05/23/17 10:00 06/02/17 09:46 Singulair PO 10 mg DAILY ALISA Administration Multivitamins 1 tab 05/22/17 13:45 06/02/17 09:45 Hexavitamin PO 1 tab DAILY ALISA Administration Nystatin 1 applic 05/27/17 10:30 06/02/17 17:10 Nystop Topical Powder TOP 1 pow TID ALISA Administration Pantoprazole Sodium 40 mg 05/23/17 10:00 06/02/17 09:46 Protonix Susp NG 40 mg DAILY ALISA Administration Rosuvastatin Calcium 10 mg 05/22/17 22:00 06/02/17 22:47 Crestor PO 10 mg HS ALISA Administration - Patient Studies Lab Studies: Lab Studies 06/03/17 06/03/17 06/03/17 Range/Units 06:12 06:12 05:07 WBC 25.6 H (4.8-10.8) K/uL RBC 2.49 L (3.80-5.20) Mil/uL Hgb 6.9 L (11.0-16.0) g/dL Hct 21.8 L (34.0-47.0) % MCV 87.7 (81.0-99.0) fL MCH 27.6 (27.0-31.0) pg MCHC 31.4 L (33.0-37.0) g/dL RDW 16.0 H (11.5-14.5) % Plt Count 133 (130-400) K/uL MPV 9.7 (7.2-11.7) fL Neut % (Auto) 85.0 H (50.0-75.0) % Lymph % (Auto) 8.6 L (20.0-40.0) % [place] % (Auto) 5.4 (0.0-10.0) % Eos % (Auto) 0.8 (0.0-4.0) % Baso % (Auto) 0.2 (0.0-2.0) % Neut # 21.8 H (1.8-7.0) K/uL Lymph # 2.2 (1.0-4.3) K/uL [place] # 1.4 H (0.0-0.8) K/uL Eos # 0.2 (0.0-0.7) K/uL Baso # 0.1 (0.0-0.2) K/uL Neutrophils % (Manual) (50-75) % Band Neutrophils % (0-2) % Lymphocytes % (Manual) (20-40) % Monocytes % (Manual) (0-10) % Eosinophils % (Manual) (0-4) % Platelet Estimate (NORMAL) Large Platelets Polychromasia Hypochromasia (manual) Poikilocytosis (manual Anisocytosis (manual) Macrocytosis (manual) [place] Cells Puncture Site R rad pCO2 39 (35-45) mm/Hg pO2 149 H (80-100) mm/Hg HCO3 26.7 (21-28) mmol/L ABG pH 7.44 (7.35-7.45) ABG Total CO2 27.7 (22-28) mmol/L ABG O2 Saturation 100.2 H (95-98) % ABG Base Excess 2.2 (-2.0-3.0) mmol/L ABG Hemoglobin 7.1 L (11.7-17.4) g/dL ABG Carboxyhemoglobin 1.9 H (0.5-1.5) % POC ABG HHb (Measured) -0.2 L (0.0-5.0) % ABG Methemoglobin 0.8 (0.0-3.0) % Sj Test Pos A-a O2 Difference 159.0 mm/Hg Respiratory Index 1.1 Hgb O2 Saturation 97.4 (95.0-98.0) % Vent Mode Prvc Mechanical Rate 20 FiO2 50.0 % Tidal Volume 500 PEEP 5 Sodium 143 (132-148) mmol/L Potassium 3.4 L (3.6-5.2) mmol/L Chloride 108 H (98-107) mmol/L Carbon Dioxide 25 (22-30) mmol/L Anion Gap 13 (10-20) BUN 78 H (7-17) mg/dL Creatinine 3.2 H (0.7-1.2) MG/DL Est GFR ( Amer) 17 Est GFR (Non-Af Amer) 14 Random Glucose 101 (65-105) mg/dL Calcium 7.3 L (8.6-10.4) mg/dl Phosphorus 7.0 H (2.5-4.5) mg/dL Magnesium 2.3 (1.6-2.3) mg/dL Total Bilirubin 0.8 (0.2-1.3) mg/dL AST 109 H (14-36) U/L ALT 74 H (9-52) U/L Alkaline Phosphatase 37 L (38-126) U/L Total Protein 4.2 L (6.3-8.3) g/dL Albumin 2.2 L (3.5-5.0) g/dL Globulin 2.0 L (2.2-3.9) gm/dL Albumin/Globulin Ratio 1.1 (1.0-2.1) Procalcitonin (0.19-0.49) NG/ML Stool Occult Blood (NEGATIVE) Hep Bs Antigen (NEGATIVE) Hep Bs Antibody (NEGATIVE) Hep B Core IgM Ab (NEGATIVE) Hepatitis C Antibody (NEGATIVE) Blood Type Blood Type Confirm Antibody Screen 06/02/17 06/02/17 06/02/17 Range/Units 20:27 20:27 18:50 WBC (4.8-10.8) K/uL RBC (3.80-5.20) Mil/uL Hgb (11.0-16.0) g/dL Hct (34.0-47.0) % MCV (81.0-99.0) fL MCH (27.0-31.0) pg MCHC (33.0-37.0) g/dL RDW (11.5-14.5) % Plt Count (130-400) K/uL MPV (7.2-11.7) fL Neut % (Auto) (50.0-75.0) % Lymph % (Auto) (20.0-40.0) % [place] % (Auto) (0.0-10.0) % Eos % (Auto) (0.0-4.0) % Baso % (Auto) (0.0-2.0) % Neut # (1.8-7.0) K/uL Lymph # (1.0-4.3) K/uL [place] # (0.0-0.8) K/uL Eos # (0.0-0.7) K/uL Baso # (0.0-0.2) K/uL Neutrophils % (Manual) (50-75) % Band Neutrophils % (0-2) % Lymphocytes % (Manual) (20-40) % Monocytes % (Manual) (0-10) % Eosinophils % (Manual) (0-4) % Platelet Estimate (NORMAL) Large Platelets Polychromasia Hypochromasia (manual) Poikilocytosis (manual Anisocytosis (manual) Macrocytosis (manual) [place] Cells Puncture Site Rra pCO2 37 (35-45) mm/Hg pO2 121 H (80-100) mm/Hg HCO3 24.6 (21-28) mmol/L ABG pH 7.42 (7.35-7.45) ABG Total CO2 25.1 (22-28) mmol/L ABG O2 Saturation 99.7 H (95-98) % ABG Base Excess -0.4 (-2.0-3.0) mmol/L ABG Hemoglobin 8.0 L (11.7-17.4) g/dL ABG Carboxyhemoglobin 1.9 H (0.5-1.5) % POC ABG HHb (Measured) 0.3 (0.0-5.0) % ABG Methemoglobin 1.1 (0.0-3.0) % Sj Test Pos A-a O2 Difference 189.0 mm/Hg Respiratory Index 1.6 Hgb O2 Saturation 96.8 (95.0-98.0) % Vent Mode A/c Mechanical Rate FiO2 50.0 % Tidal Volume 500 PEEP 5 Sodium (132-148) mmol/L Potassium (3.6-5.2) mmol/L Chloride (98-107) mmol/L Carbon Dioxide (22-30) mmol/L Anion Gap (10-20) BUN (7-17) mg/dL Creatinine (0.7-1.2) MG/DL Est GFR ( Amer) Est GFR (Non-Af Amer) Random Glucose (65-105) mg/dL Calcium (8.6-10.4) mg/dl Phosphorus (2.5-4.5) mg/dL Magnesium (1.6-2.3) mg/dL Total Bilirubin (0.2-1.3) mg/dL AST (14-36) U/L ALT (9-52) U/L Alkaline Phosphatase (38-126) U/L Total Protein (6.3-8.3) g/dL Albumin (3.5-5.0) g/dL Globulin (2.2-3.9) gm/dL Albumin/Globulin Ratio (1.0-2.1) Procalcitonin (0.19-0.49) NG/ML Stool Occult Blood (NEGATIVE) Hep Bs Antigen Negative (NEGATIVE) Hep Bs Antibody Negative (NEGATIVE) Hep B Core IgM Ab Negative (NEGATIVE) Hepatitis C Antibody Negative (NEGATIVE) Blood Type Blood Type Confirm Antibody Screen 06/02/17 06/02/17 06/02/17 Range/Units 14:11 10:16 06:19 WBC (4.8-10.8) K/uL RBC (3.80-5.20) Mil/uL Hgb (11.0-16.0) g/dL Hct (34.0-47.0) % MCV (81.0-99.0) fL MCH (27.0-31.0) pg MCHC (33.0-37.0) g/dL RDW (11.5-14.5) % Plt Count (130-400) K/uL MPV (7.2-11.7) fL Neut % (Auto) (50.0-75.0) % Lymph % (Auto) (20.0-40.0) % [place] % (Auto) (0.0-10.0) % Eos % (Auto) (0.0-4.0) % Baso % (Auto) (0.0-2.0) % Neut # (1.8-7.0) K/uL Lymph # (1.0-4.3) K/uL [place] # (0.0-0.8) K/uL Eos # (0.0-0.7) K/uL Baso # (0.0-0.2) K/uL Neutrophils % (Manual) 79 H (50-75) % Band Neutrophils % 3 H (0-2) % Lymphocytes % (Manual) 10 L (20-40) % Monocytes % (Manual) 7 (0-10) % Eosinophils % (Manual) 1 (0-4) % Platelet Estimate Normal (NORMAL) Large Platelets Present Polychromasia Slight Hypochromasia (manual) Slight Poikilocytosis (manual Slight Anisocytosis (manual) Slight Macrocytosis (manual) Slight [place] Cells Slight Puncture Site pCO2 (35-45) mm/Hg pO2 (80-100) mm/Hg HCO3 (21-28) mmol/L ABG pH (7.35-7.45) ABG Total CO2 (22-28) mmol/L ABG O2 Saturation (95-98) % ABG Base Excess (-2.0-3.0) mmol/L ABG Hemoglobin (11.7-17.4) g/dL ABG Carboxyhemoglobin (0.5-1.5) % POC ABG HHb (Measured) (0.0-5.0) % ABG Methemoglobin (0.0-3.0) % Sj Test A-a O2 Difference mm/Hg Respiratory Index Hgb O2 Saturation (95.0-98.0) % Vent Mode Mechanical Rate FiO2 % Tidal Volume PEEP Sodium (132-148) mmol/L Potassium (3.6-5.2) mmol/L Chloride (98-107) mmol/L Carbon Dioxide (22-30) mmol/L Anion Gap (10-20) BUN (7-17) mg/dL Creatinine (0.7-1.2) MG/DL Est GFR ( Amer) Est GFR (Non-Af Amer) Random Glucose (65-105) mg/dL Calcium (8.6-10.4) mg/dl Phosphorus (2.5-4.5) mg/dL Magnesium (1.6-2.3) mg/dL Total Bilirubin (0.2-1.3) mg/dL AST (14-36) U/L ALT (9-52) U/L Alkaline Phosphatase (38-126) U/L Total Protein (6.3-8.3) g/dL Albumin (3.5-5.0) g/dL Globulin (2.2-3.9) gm/dL Albumin/Globulin Ratio (1.0-2.1) Procalcitonin 1.08 H (0.19-0.49) NG/ML Stool Occult Blood Positive H (NEGATIVE) Hep Bs Antigen (NEGATIVE) Hep Bs Antibody (NEGATIVE) Hep B Core IgM Ab (NEGATIVE) Hepatitis C Antibody (NEGATIVE) Blood Type Blood Type Confirm Antibody Screen 06/01/17 Range/Units 06:53 WBC (4.8-10.8) K/uL RBC (3.80-5.20) Mil/uL Hgb (11.0-16.0) g/dL Hct (34.0-47.0) % MCV (81.0-99.0) fL MCH (27.0-31.0) pg MCHC (33.0-37.0) g/dL RDW (11.5-14.5) % Plt Count (130-400) K/uL MPV (7.2-11.7) fL Neut % (Auto) (50.0-75.0) % Lymph % (Auto) (20.0-40.0) % [place] % (Auto) (0.0-10.0) % Eos % (Auto) (0.0-4.0) % Baso % (Auto) (0.0-2.0) % Neut # (1.8-7.0) K/uL Lymph # (1.0-4.3) K/uL [place] # (0.0-0.8) K/uL Eos # (0.0-0.7) K/uL Baso # (0.0-0.2) K/uL Neutrophils % (Manual) (50-75) % Band Neutrophils % (0-2) % Lymphocytes % (Manual) (20-40) % Monocytes % (Manual) (0-10) % Eosinophils % (Manual) (0-4) % Platelet Estimate (NORMAL) Large Platelets Polychromasia Hypochromasia (manual) Poikilocytosis (manual Anisocytosis (manual) Macrocytosis (manual) [place] Cells Puncture Site pCO2 (35-45) mm/Hg pO2 (80-100) mm/Hg HCO3 (21-28) mmol/L ABG pH (7.35-7.45) ABG Total CO2 (22-28) mmol/L ABG O2 Saturation (95-98) % ABG Base Excess (-2.0-3.0) mmol/L ABG Hemoglobin (11.7-17.4) g/dL ABG Carboxyhemoglobin (0.5-1.5) % POC ABG HHb (Measured) (0.0-5.0) % ABG Methemoglobin (0.0-3.0) % Sj Test A-a O2 Difference mm/Hg Respiratory Index Hgb O2 Saturation (95.0-98.0) % Vent Mode Mechanical Rate FiO2 % Tidal Volume PEEP Sodium (132-148) mmol/L Potassium (3.6-5.2) mmol/L Chloride (98-107) mmol/L Carbon Dioxide (22-30) mmol/L Anion Gap (10-20) BUN (7-17) mg/dL Creatinine (0.7-1.2) MG/DL Est GFR ( Amer) Est GFR (Non-Af Amer) Random Glucose (65-105) mg/dL Calcium (8.6-10.4) mg/dl Phosphorus (2.5-4.5) mg/dL Magnesium (1.6-2.3) mg/dL Total Bilirubin (0.2-1.3) mg/dL AST (14-36) U/L ALT (9-52) U/L Alkaline Phosphatase (38-126) U/L Total Protein (6.3-8.3) g/dL Albumin (3.5-5.0) g/dL Globulin (2.2-3.9) gm/dL Albumin/Globulin Ratio (1.0-2.1) Procalcitonin (0.19-0.49) NG/ML Stool Occult Blood (NEGATIVE) Hep Bs Antigen (NEGATIVE) Hep Bs Antibody (NEGATIVE) Hep B Core IgM Ab (NEGATIVE) Hepatitis C Antibody (NEGATIVE) Blood Type A POSITIVE Blood Type Confirm A POSITIVE Antibody Screen Negative Laboratory Results - last 24 hr 06/01/17 06/02/17 06/02/17 06:53 06:19 10:16 WBC RBC Hgb Hct MCV MCH MCHC RDW Plt Count MPV Neut % (Auto) Lymph % (Auto) [place] % (Auto) Eos % (Auto) Baso % (Auto) Neut # Lymph # [place] # Eos # Baso # Neutrophils % (Manual) 79 H Band Neutrophils % 3 H Lymphocytes % (Manual) 10 L Monocytes % (Manual) 7 Eosinophils % (Manual) 1 Platelet Estimate Normal Large Platelets Present Polychromasia Slight Hypochromasia (manual) Slight Poikilocytosis (manual Slight Anisocytosis (manual) Slight Macrocytosis (manual) Slight [place] Cells Slight Puncture Site pCO2 pO2 HCO3 ABG pH ABG Total CO2 ABG O2 Saturation ABG Base Excess ABG Hemoglobin ABG Carboxyhemoglobin POC ABG HHb (Measured) ABG Methemoglobin Sj Test A-a O2 Difference Respiratory Index Hgb O2 Saturation Vent Mode Mechanical Rate FiO2 Tidal Volume PEEP Sodium Potassium Chloride Carbon Dioxide Anion Gap BUN Creatinine Est GFR ( Amer) Est GFR (Non-Af Amer) Random Glucose Calcium Phosphorus Magnesium Total Bilirubin AST ALT Alkaline Phosphatase Total Protein Albumin Globulin Albumin/Globulin Ratio Procalcitonin 1.08 H Stool Occult Blood Hep Bs Antigen Hep Bs Antibody Hep B Core IgM Ab Hepatitis C Antibody Blood Type A POSITIVE Blood Type Confirm A POSITIVE Antibody Screen Negative 06/02/17 06/02/17 06/02/17 14:11 18:50 20:27 WBC RBC Hgb Hct MCV MCH MCHC RDW Plt Count MPV Neut % (Auto) Lymph % (Auto) [place] % (Auto) Eos % (Auto) Baso % (Auto) Neut # Lymph # [place] # Eos # Baso # Neutrophils % (Manual) Band Neutrophils % Lymphocytes % (Manual) Monocytes % (Manual) Eosinophils % (Manual) Platelet Estimate Large Platelets Polychromasia Hypochromasia (manual) Poikilocytosis (manual Anisocytosis (manual) Macrocytosis (manual) [place] Cells Puncture Site Rra pCO2 37 pO2 121 H HCO3 24.6 ABG pH 7.42 ABG Total CO2 25.1 ABG O2 Saturation 99.7 H ABG Base Excess -0.4 ABG Hemoglobin 8.0 L ABG Carboxyhemoglobin 1.9 H POC ABG HHb (Measured) 0.3 ABG Methemoglobin 1.1 Sj Test Pos A-a O2 Difference 189.0 Respiratory Index 1.6 Hgb O2 Saturation 96.8 Vent Mode A/c Mechanical Rate FiO2 50.0 Tidal Volume 500 PEEP 5 Sodium Potassium Chloride Carbon Dioxide Anion Gap BUN Creatinine Est GFR ( Amer) Est GFR (Non-Af Amer) Random Glucose Calcium Phosphorus Magnesium Total Bilirubin AST ALT Alkaline Phosphatase Total Protein Albumin Globulin Albumin/Globulin Ratio Procalcitonin Stool Occult Blood Positive H Hep Bs Antigen Negative Hep Bs Antibody Hep B Core IgM Ab Negative Hepatitis C Antibody Negative Blood Type Blood Type Confirm Antibody Screen 06/02/17 06/03/17 06/03/17 20:27 05:07 06:12 WBC 25.6 H RBC 2.49 L Hgb 6.9 L Hct 21.8 L MCV 87.7 MCH 27.6 MCHC 31.4 L RDW 16.0 H Plt Count 133 MPV 9.7 Neut % (Auto) 85.0 H Lymph % (Auto) 8.6 L [place] % (Auto) 5.4 Eos % (Auto) 0.8 Baso % (Auto) 0.2 Neut # 21.8 H Lymph # 2.2 [place] # 1.4 H Eos # 0.2 Baso # 0.1 Neutrophils % (Manual) Band Neutrophils % Lymphocytes % (Manual) Monocytes % (Manual) Eosinophils % (Manual) Platelet Estimate Large Platelets Polychromasia Hypochromasia (manual) Poikilocytosis (manual Anisocytosis (manual) Macrocytosis (manual) [place] Cells Puncture Site R rad pCO2 39 pO2 149 H HCO3 26.7 ABG pH 7.44 ABG Total CO2 27.7 ABG O2 Saturation 100.2 H ABG Base Excess 2.2 ABG Hemoglobin 7.1 L ABG Carboxyhemoglobin 1.9 H POC ABG HHb (Measured) -0.2 L ABG Methemoglobin 0.8 Sj Test Pos A-a O2 Difference 159.0 Respiratory Index 1.1 Hgb O2 Saturation 97.4 Vent Mode Prvc Mechanical Rate 20 FiO2 50.0 Tidal Volume 500 PEEP 5 Sodium Potassium Chloride Carbon Dioxide Anion Gap BUN Creatinine Est GFR ( Amer) Est GFR (Non-Af Amer) Random Glucose Calcium Phosphorus Magnesium Total Bilirubin AST ALT Alkaline Phosphatase Total Protein Albumin Globulin Albumin/Globulin Ratio Procalcitonin Stool Occult Blood Hep Bs Antigen Hep Bs Antibody Negative Hep B Core IgM Ab Hepatitis C Antibody Blood Type Blood Type Confirm Antibody Screen 06/03/17 06:12 WBC RBC Hgb Hct MCV MCH MCHC RDW Plt Count MPV Neut % (Auto) Lymph % (Auto) [place] % (Auto) Eos % (Auto) Baso % (Auto) Neut # Lymph # [place] # Eos # Baso # Neutrophils % (Manual) Band Neutrophils % Lymphocytes % (Manual) Monocytes % (Manual) Eosinophils % (Manual) Platelet Estimate Large Platelets Polychromasia Hypochromasia (manual) Poikilocytosis (manual Anisocytosis (manual) Macrocytosis (manual) [place] Cells Puncture Site pCO2 pO2 HCO3 ABG pH ABG Total CO2 ABG O2 Saturation ABG Base Excess ABG Hemoglobin ABG Carboxyhemoglobin POC ABG HHb (Measured) ABG Methemoglobin Sj Test A-a O2 Difference Respiratory Index Hgb O2 Saturation Vent Mode Mechanical Rate FiO2 Tidal Volume PEEP Sodium 143 Potassium 3.4 L Chloride 108 H Carbon Dioxide 25 Anion Gap 13 BUN 78 H Creatinine 3.2 H Est GFR ( Amer) 17 Est GFR (Non-Af Amer) 14 Random Glucose 101 Calcium 7.3 L Phosphorus 7.0 H Magnesium 2.3 Total Bilirubin 0.8 AST 109 H ALT 74 H Alkaline Phosphatase 37 L Total Protein 4.2 L Albumin 2.2 L Globulin 2.0 L Albumin/Globulin Ratio 1.1 Procalcitonin Stool Occult Blood Hep Bs Antigen Hep Bs Antibody Hep B Core IgM Ab Hepatitis C Antibody Blood Type Blood Type Confirm Antibody Screen Review of Systems - Review of Systems Systems not reviewed;Unavailable: Intubated Critical Care Progress Note - Vent Settings MODE:: CPAP FIO2:: 50 - Extremities/Vascular Does the Patient have a Central Venous Catheter?: Yes Insertion Site: Internal Jugular Vein (Right IJ) Does the Patient have a Saenz Catheter?: Yes - Prophylaxis DVT Prophylaxis DVT: SCDs (Anti-coagulation held, ecchymosis in upper extremities bilaterally) Assessment/Plan (1) Respiratory acidosis Current Visit: Yes Status: Acute (2) COPD exacerbation Current Visit: Yes Status: Acute (3) Elevated troponin Current Visit: Yes Status: Acute (4) Atrial fibrillation, new onset Current Visit: Yes Status: Acute (5) Cardiomegaly Current Visit: Yes Status: Acute (6) Elevated WBCs Current Visit: Yes Status: Acute (7) Abnormal RBC indices Current Visit: Yes Status: Acute (8) History of hypertension Current Visit: Yes Status: Acute (9) History of hyperlipidemia Current Visit: Yes Status: Acute (10) Change in mental state Current Visit: Yes Status: Acute (11) History of dementia Current Visit: Yes Status: Acute (12) History of gastroesophageal reflux (GERD) Current Visit: Yes Status: Acute (13) History of glaucoma Current Visit: Yes Status: Acute (14) Prophylactic measure Current Visit: Yes Status: Acute - Assessment and Plan (Free Text) Assessment: 76 year old female with PMHx of COPD, AFib, Asthma, HTN, Cardiomegaly with Diastolic Heart Failure, Dementia presenting with acute respiratory failure likely secondary COPD exacerbation, resulting in intubation (05/22). Extubated and Re-intubated on 06/01. Today 06/03/2017: Eccymosis in arms b/l extending into trunk, ordered imaging. Improving on oxygenation, ventilation changed to CPAP. Hgb low, transfused with 2u pRBCs. Elevated AST and ALT, discontinued Crestor. Hemodialysis today. Pulm: Acute respiratory failure secondary to pulmonary edema - Re-intubated 06/01 on CPAP - 06/01 CXR: Prominent patchy increased markings at both lung bases; left greater than right suggestive for infiltrate and or atelectasis. Suggestion of a small left and or trace right pleural effusion. - f/u ABGs - Mucomyst 4 ml RQ6 - DuoNeb 3 ml RQ6 - Singulair 10 mg PO daily - Lasix 40 mg IVP daily GI: NPO; Stool occult blood positive - Drop in Hgb, Stool occult blood: Positive - 06/01 C. diff toxin negative CV: Mildly hypotensive, Acute on chronic decompensated diastolic heart failure - norepinephrine for pressure support - A. fib rate controlled with Cardizem 30 mg PO daily ID: Empiric therapy for possible underlying pneumonia; [place] rash bilateral breast - elevated procalcitonin - linezolid 600mg iv q12 started 06/01 - pip/tazo 3.375g iv q8 started 05/31 - Nystatin powder for rash underneath breasts b/l - f/u sputum culture Heme: Stool occult blood positive - Bilateral ecchymosis in upper extremities with edema now extending into trunk. - Stopped all anti-platelet medications ASA and Lovenox due to anemia - transfused with 2 units of pRBC 06/01, 1 unit pRBC 06/02, 2 units 06/03 - 05/31 venous duplex scan of bilaterally upper extremities: Right - no abnormal findings. Left - not done due to swelling. Renal: elevated BUN: Cr, urine output decreased today - Nephro consulted, will f/u reccs - will continue to monitor, hold enalapril - per nephro d/c ACEi and Lasix Endo: No acute issues Neuro: More alert compared to yesterday DVT proph - SCD, hold Lovenox GI proph - Protonix 40 mg Saenz for strict I/O's during acute illness Multivitamins Code status - full code
[2017-06-03 08:49] LABS: EOSINOPHIL 1 % (0-4); METAMYELOCYTE 1 % (0-0); MYELOCYTE 2 % (0-0); NEUTROPHIL 81 % (50-75); NUCLEATED RED BLOOD CELL 1 % (0-0); TOTAL CELLS COUNTED 100
--- NOTE | 2017-06-03 09:02 | CP.PCM.PN ---
Subjective - Date & Time of Evaluation Date of Evaluation: 06/03/17 Time of Evaluation: 08:40 - Subjective Subjective: Patient was seen and examined by me. She remains intubated at this time. She is awake, opens eyes and looks at me, however was not interactive and did not follow any commands in basic [place] when I asked. Now off of IV pressor medications. Staff explained to me that he had HD yesterday and 1.5 L removed. Hgb also decreased again to 6.9, there was a stool occult blood that was positive Objective - Vital Signs/Intake and Output Vital Signs (last 24 hours): Temp Pulse Resp BP Pulse Ox 98.3 F 87 20 110/50 L 100 06/03/17 08:00 06/03/17 08:04 06/03/17 08:04 06/03/17 08:04 06/03/17 08:04 Intake and Output: 06/03/17 06/03/17 06:59 18:59 Intake Total 2170.25 360 Output Total 355 50 Balance 1815.25 310 - Medications Medications: Current Medications Acetylcysteine (Acetylcysteine 20%) 4 ml INH RQ6 [facility] Last Admin: 06/03/17 08:34 Dose: 4 ml Albuterol/Ipratropium (Duoneb 3 Mg/0.5 Mg (3 Ml) Ud) 3 ml INH RQ6 [facility] Last Admin: 06/03/17 08:34 Dose: 3 ml Calcium Acetate (Phoslo) 667 mg PO TIDCC [facility] Last Admin: 06/03/17 07:23 Dose: 667 mg Diltiazem HCl (Cardizem) 30 mg PO Q6H [facility] Last Admin: 06/03/17 05:57 Dose: Not Given Dorzolamide HCl (Trusopt) 10 ml OU TID [facility] Last Admin: 06/02/17 17:10 Dose: 1 drop Furosemide (Lasix) 40 mg IVP DAILY [facility] Last Admin: 06/02/17 10:13 Dose: 40 mg Norepinephrine Bitartrate 4 mg (/ Sodium Chloride) 254 mls @ 15.24 mls/hr IV .[id number] PRN; Protocol; 4 MCG/MIN PRN Reason: TITRATE PER MD ORDER Last Titration: 06/03/17 03:00 Dose: 0 mcg/min, 0 mls/hr Sodium Chloride (Sodium Chloride 0.9%) 1,000 mls @ 150 mls/hr IV .[id number] [facility] Last Admin: 06/03/17 07:44 Dose: 150 mls/hr Linezolid (Zyvox 600mg/300ml D5w) 600 mg in 300 mls @ 200 mls/hr IVPB Q12 [facility] Last Admin: 06/02/17 22:47 Dose: 200 mls/hr Piperacillin Sod/Tazobactam Sod (Zosyn 2.25 Gm Iv Premix) 2.25 gm in 50 mls @ 100 mls/hr IVPB Q8H [facility] Last Admin: 06/03/17 05:39 Dose: 100 mls/hr Metronidazole (Flagyl) 250 mg PO Q8H [facility] Last Admin: 06/03/17 04:38 Dose: 250 mg Montelukast Sodium (Singulair) 10 mg PO DAILY [facility] Last Admin: 06/02/17 09:46 Dose: 10 mg Multivitamins (Hexavitamin) 1 tab PO DAILY [facility] Last Admin: 06/02/17 09:45 Dose: 1 tab Nystatin (Nystop Topical Powder) 1 applic TOP TID [facility] Last Admin: 06/02/17 17:10 Dose: 1 pow Pantoprazole Sodium (Protonix Susp) 40 mg NG DAILY [facility] Last Admin: 06/02/17 09:46 Dose: 40 mg Rosuvastatin Calcium (Crestor) 10 mg PO HS [facility] Last Admin: 06/02/17 22:47 Dose: 10 mg - Labs Labs: 06/03/17 06:12 06/03/17 06:12 - Constitutional Appears: Confused, Chronically Ill - Eye Exam Eye Exam: Normal appearance - ENT Exam ENT Exam: Mucous Membranes Moist - Respiratory Exam Respiratory Exam: Decreased Breath Sounds Additional comments: Mechanical breath sounds - Cardiovascular Exam Cardiovascular Exam: REGULAR RHYTHM - GI/Abdominal Exam GI & Abdominal Exam: Soft. absent: Guarding, Rigid, Tenderness - Neurological Exam Neurological Exam: Alert, Altered, Awake. absent: CN II-XII Intact, Oriented x3 - Psychiatric Exam Psychiatric exam: Flat Affect - Skin Skin Exam: Pallor, Warm Assessment and Plan - Assessment and Plan (Free Text) Assessment: (1) Acute respiratory failure with hypoxia and hypercapnia 06/03: Remains intubated. Now off pressor medications. Had 1.5 L removed yesterday 06/02: Remains intubated, on IV pressor medications. Blood pressure better now. There are plans for HD to see if this can help remove fluid from lungs 06/01 Now re-intubated after patient became hypoxcic 05/30: Currently on weaning trial. 05/29: Currently patient remains on mechanical ventilator. Review of the blood gases show no longer acidemic or CO2 retaining. Hopefully can be weaned soon. Likey complications from CO2 and CHF as well as pneumonia. (2) Pneumonia - questionable area on the right lower lobe seen on CT done on 06/03: The WBC decreased to 25, Continued on Zyvox and Zosyn 06/02: Signifigtanly elevated WBC. Now changed to Zyvox and Zosyn IV 05/30: WBC is only decreased slightly. There is still large left shift. Afebrile. IV Zosyn started on 05/26 and IV Vanco started 05/27. 05/29: Remains on IV abx Zosyn and Vancomycin - the WBC is 14. Currently afebrile and also blood and sputum cultures are negative (3) Acute on chronic kidney injury 06/03: Yesterday had permacath placed 1.5 L removed 06/02: There are plans for HD to be started (4) COPD exacerbation 05/29: On nebulizers and twice a day solumedrol (5) Atrial fibrillation, new onset 06/03: Again anemia Hgb now 6.9. Has had a total of 3 units of PRBC, lovenox on hold, positive occult 06/02: Because of the anemia has been off lovenox. 05/30: HR has been in the 90s atrial fibrillation. Rate controlled now. Continue Cardizem by mouth for rate control. Patient is on therapeutic anticoagulation with Lovenox as there is a high CHADs score (6) CHF (congestive heart failure) 05/29: Continue following CXRAYs, urine ins and outs. Patient is getting lasix BID and also is on vasotech. (7) History of hyperlipidemia
[2017-06-03] MEDS: Pantoprazole 40 mg Susp UD NG SCH (09:18)
[2017-06-03] MEDS: Multiple Vitamins Tab PO SCH (09:18)
[2017-06-03] MEDS: Linezolid 600 mg in D5W 300 ml 600 MG/300 ML BAG IVPB SCH ×2 (09:19→21:20)
[2017-06-03] MEDS: Dorzolamide 2% Opht Sol 10ml OU SCH ×3 (09:19→17:14)
--- NOTE | 2017-06-03 13:51 | RAD ---
HISTORY: intubated COMPARISON: Chest x-ray performed 06/02/17. TECHNIQUE: Chest, one view. FINDINGS: Examination markedly limited by habitus. Nasogastric tube extends expected location of the stomach. Right IJ approach central venous catheter extends to the SVC. Endotracheal tube terminates approximately 6.8 cm above the sang. LUNGS: Small left pleural effusion and/or associated atelectasis/infiltrate. No definite pneumothorax. Please note that chest x-ray has limited sensitivity for the detection of pulmonary masses. CARDIOVASCULAR: Cardiomegaly. Atherosclerotic calcifications of the aortic knob. OSSEOUS STRUCTURES: Degenerative changes. VISUALIZED UPPER ABDOMEN: Unremarkable. OTHER FINDINGS: None. IMPRESSION: Support lines and tubes as above. Small left pleural effusion and/or associated atelectasis/ infiltrate. Cardiomegaly.
--- NOTE | 2017-06-03 13:56 | CP.PCM.PN ---
Subjective - Date & Time of Evaluation Date of Evaluation: 06/03/17 Time of Evaluation: 13:52 - Subjective Subjective: s/p dialysis 06/02 remains on vent; oliguric; arousable given blood transfusion for severe anemia TSAT very low Objective - Vital Signs/Intake and Output Vital Signs (last 24 hours): Temp Pulse Resp BP Pulse Ox 97.9 F 93 H 25 H 131/51 L 100 06/03/17 13:12 06/03/17 13:12 06/03/17 13:12 06/03/17 13:12 06/03/17 12:41 Intake and Output: 06/03/17 06/03/17 06:59 18:59 Intake Total 2170.25 1395 Output Total 355 190 Balance 1815.25 1205 - Medications Medications: Current Medications Acetylcysteine (Acetylcysteine 20%) 4 ml INH RQ6 [facility] Last Admin: 06/03/17 08:34 Dose: 4 ml Albuterol/Ipratropium (Duoneb 3 Mg/0.5 Mg (3 Ml) Ud) 3 ml INH RQ6 [facility] Last Admin: 06/03/17 08:34 Dose: 3 ml Calcium Acetate (Phoslo) 667 mg PO TIDCC [facility] Last Admin: 06/03/17 13:05 Dose: 667 mg Diltiazem HCl (Cardizem) 30 mg PO Q6H [facility] Last Admin: 06/03/17 13:05 Dose: Not Given Dorzolamide HCl (Trusopt) 10 ml OU TID [facility] Last Admin: 06/03/17 13:13 Dose: 1 drop Norepinephrine Bitartrate 4 mg (/ Sodium Chloride) 254 mls @ 15.24 mls/hr IV .[id number] PRN; Protocol; 4 MCG/MIN PRN Reason: TITRATE PER MD ORDER Last Titration: 06/03/17 03:00 Dose: 0 mcg/min, 0 mls/hr Linezolid (Zyvox 600mg/300ml D5w) 600 mg in 300 mls @ 200 mls/hr IVPB Q12 [facility] Last Admin: 06/03/17 09:19 Dose: 200 mls/hr Piperacillin Sod/Tazobactam Sod (Zosyn 2.25 Gm Iv Premix) 2.25 gm in 50 mls @ 100 mls/hr IVPB Q8H [facility] Last Admin: 06/03/17 05:39 Dose: 100 mls/hr Montelukast Sodium (Singulair) 10 mg PO DAILY [facility] Last Admin: 06/03/17 09:18 Dose: 10 mg Multivitamins (Hexavitamin) 1 tab PO DAILY [facility] Last Admin: 06/03/17 09:18 Dose: 1 tab Nystatin (Nystop Topical Powder) 1 applic TOP TID [facility] Last Admin: 06/03/17 13:13 Dose: 1 pow Pantoprazole Sodium (Protonix Susp) 40 mg NG DAILY [facility] Last Admin: 06/03/17 09:18 Dose: 40 mg - Labs Labs: 06/03/17 06:12 06/03/17 06:12 - Constitutional Appears: In Acute Distress, Chronically Ill - Head Exam Head Exam: ATRAUMATIC, NORMAL INSPECTION - Eye Exam Eye Exam: EOMI, Normal appearance - Neck Exam Neck Exam: Normal Inspection. absent: Tenderness - Respiratory Exam Respiratory Exam: Rhonchi, Respiratory Distress - Cardiovascular Exam Cardiovascular Exam: REGULAR RHYTHM, +S1 - GI/Abdominal Exam GI & Abdominal Exam: Soft. absent: Tenderness - Extremities Exam Extremities Exam: Normal Inspection. absent: Tenderness - Neurological Exam Neurological Exam: Altered, CN II-XII Intact - Skin Skin Exam: Dry, Warm Assessment and Plan (1) Acute respiratory failure Status: Acute (2) Chronic a-fib Status: Acute (3) Dementia Status: Acute (4) CEZAR (acute kidney injury) Status: Acute (5) Acute respiratory failure with hypoxia and hypercapnia Status: Acute (6) History of hypertension Status: Acute - Assessment and Plan (Free Text) Plan: dialysis again today IV Fe respiratory care
[2017-06-03] MEDS: Ferric Sodium Gluconat Complex 62.5 mg/5 ml Vial IVPB SCH (14:20)
[2017-06-03] MEDS ORDERED: Albumin Human 25% (12.5 gm/50 ml) IV ONE ×2 (15:21→16:10)
[2017-06-03 18:14] LABS: INR 1.1
--- NOTE | 2017-06-03 20:23 | CT ---
EXAM: CT Abdomen and Pelvis Without Intravenous Contrast CLINICAL HISTORY: 76 years old, female; Signs and symptoms and condition or disease; Other: Bilateral chest ecchymosis; Bloating and constipation; Lung condition and disease; Pneumonia; Shortness of breath TECHNIQUE: Axial computed tomography images of the abdomen and pelvis without intravenous contrast. All CT scans at this facility use one or more dose reduction techniques, viz.: automated exposure control; ma/kV adjustment per patient size (including targeted exams where dose is matched to indication; i.e. head); or iterative reconstruction technique. Coronal and sagittal reformatted images were created and reviewed. COMPARISON: No relevant prior studies available. FINDINGS: Lower thorax: No acute findings. ABDOMEN: Liver: Unremarkable. Gallbladder and bile ducts: Unremarkable. No calcified stones. No ductal dilation. Pancreas: Unremarkable. No ductal dilation. Spleen: Unremarkable. No splenomegaly. Adrenals: Unremarkable. No mass. Kidneys and ureters: Unremarkable. No obstructing stones. No hydronephrosis. Stomach and bowel: Unremarkable. No obstruction. No mucosal thickening. Appendix: No findings to suggest acute appendicitis. PELVIS: Bladder: There is a Saenz catheter present within the bladder. No stones. Reproductive: There calcified uterine fibroids. ABDOMEN and PELVIS: Intraperitoneal space: Unremarkable. No free air. No significant fluid collection. Bones/joints: No acute fracture. No dislocation. Soft tissues: There is an umbilical hernia containing fat. Vasculature: Unremarkable. No abdominal aortic aneurysm. Lymph nodes: Unremarkable. No enlarged lymph nodes. Tubes, lines and devices: Tip of the nasogastric tube is in the gastric antrum. There is a right femoral venous catheter with the tip in the external iliac vein. IMPRESSION: 1. No acute findings. 2. Umbilical hernia containing fat. EXAM: CT Chest Without Intravenous Contrast EXAM DATE/TIME: Exam ordered 06/03/2017 11:33 AM CLINICAL HISTORY: 76 years old, female; Signs and symptoms and condition or disease; Other: Bilateral chest ecchymosis; Bloating and constipation; Lung condition and disease; Pneumonia; Shortness of breath TECHNIQUE: Axial computed tomography images of the chest without intravenous contrast. All CT scans at this facility use one or more dose reduction techniques, viz.: automated exposure control; ma/kV adjustment per patient size (including targeted exams where dose is matched to indication; i.e. head); or iterative reconstruction technique. Coronal and sagittal reformatted images were created and reviewed. COMPARISON: No relevant prior studies available. FINDINGS: Artifacts: Motion artifact degrades image quality. Lungs: There is segmental atelectasis of the posterior basal and medial basal segment of the left lower lobe. Hypoventilatory changes are noted in the dependent portion of the right lung base. Groundglass density is noted in a perihilar distribution of the right upper lobe. 2 nodular opacities are noted in the right middle lobe (series 4 image 62) each measuring approximately 4 mm. Pleural space: Unremarkable. No pneumothorax. No significant effusion. Heart: There is cardiomegaly. No significant pericardial effusion. Bones/joints: Degenerative changes are noted within the facet joints at the lumbosacral junction. No acute fracture. No dislocation. Soft tissues: A nodule within the subcutaneous fat of the infraumbilical abdominal wall on the left and may be related to subcutaneous injection. There is extensive stranding noted within the subcutaneous fat of the left breast and anterior chest wall, axilla and proximal left arm. Vasculature: No thoracic aortic aneurysm. Lymph nodes: Unremarkable. No enlarged lymph nodes. Stomach and bowel: There are scattered colonic diverticula. Tubes, lines and devices: The endotracheal tube is 3 cm above the sang.There's a right internal jugular line with the tip in the superior vena cava. IMPRESSION: 1. Atelectasis in the left lower lobe. 2. Groundglass pneumonitis in the right upper lobe with hypoventilatory changes in the right lung base. 3. 2 nodular opacities in the right middle lobe. Recommend follow-up chest CT at 3-6 months to confirm persistence. If stable, chest CT at 2 and 4 years. 4. Extensive the soft tissue stranding likely representing hemorrhage involving the left chest wall and upper arm in this patient with ecchymosis in the above-described areas. 5. Scattered colonic diverticula. 6. Cardiomegaly 7. Umbilical hernia containing fat
--- NOTE | 2017-06-03 21:07 | CP.PCM.PN ---
Subjective - Date & Time of Evaluation Date of Evaluation: 06/03/17 Time of Evaluation: 06:15 - Subjective Subjective: dictated Objective - Vital Signs/Intake and Output Vital Signs (last 24 hours): Temp Pulse Resp BP Pulse Ox 98.6 F 86 24 144/62 100 06/03/17 20:00 06/03/17 20:34 06/03/17 20:34 06/03/17 20:34 06/03/17 20:34 Intake and Output: 06/03/17 06/04/17 18:59 06:59 Intake Total 1570 20 Output Total 260 0 Balance 1310 20 - Medications Medications: Current Medications Acetylcysteine (Acetylcysteine 20%) 4 ml INH RQ6 [facility] Last Admin: 06/03/17 19:23 Dose: 4 ml Albuterol/Ipratropium (Duoneb 3 Mg/0.5 Mg (3 Ml) Ud) 3 ml INH RQ6 [facility] Last Admin: 06/03/17 19:23 Dose: 3 ml Calcium Acetate (Phoslo) 667 mg PO TIDCC [facility] Last Admin: 06/03/17 17:15 Dose: 667 mg Diltiazem HCl (Cardizem) 30 mg PO Q6H [facility] Last Admin: 06/03/17 17:08 Dose: Not Given Dorzolamide HCl (Trusopt) 10 ml OU TID [facility] Last Admin: 06/03/17 17:14 Dose: 1 drop Ferric Sodium Gluconate Complex (Ferrlecit) 125 mg IVPB DAILY [facility] Stop: 06/11/17 14:01 Last Admin: 06/03/17 14:20 Dose: 125 mg Norepinephrine Bitartrate 4 mg (/ Sodium Chloride) 254 mls @ 15.24 mls/hr IV .[id number] PRN; Protocol; 4 MCG/MIN PRN Reason: TITRATE PER MD ORDER Last Titration: 06/03/17 03:00 Dose: 0 mcg/min, 0 mls/hr Linezolid (Zyvox 600mg/300ml D5w) 600 mg in 300 mls @ 200 mls/hr IVPB Q12 [facility] Last Admin: 06/03/17 09:19 Dose: 200 mls/hr Piperacillin Sod/Tazobactam Sod (Zosyn 2.25 Gm Iv Premix) 2.25 gm in 50 mls @ 100 mls/hr IVPB Q8H [facility] Last Admin: 06/03/17 17:14 Dose: 100 mls/hr Montelukast Sodium (Singulair) 10 mg PO DAILY [facility] Last Admin: 06/03/17 09:18 Dose: 10 mg Multivitamins (Hexavitamin) 1 tab PO DAILY [facility] Last Admin: 06/03/17 09:18 Dose: 1 tab Nystatin (Nystop Topical Powder) 1 applic TOP TID [facility] Last Admin: 06/03/17 17:14 Dose: 1 pow Pantoprazole Sodium (Protonix Susp) 40 mg NG DAILY [facility] Last Admin: 06/03/17 09:18 Dose: 40 mg - Labs Labs: 06/03/17 06:12 06/03/17 06:12 PT 12.4 SECONDS (9.7-12.2) H 06/03/17 17:53 INR 1.1 06/03/17 17:53 APTT 27 SECONDS (21-34) 06/03/17 17:53
--- NOTE | 2017-06-03 22:09 | CP.PCM.PN ---
Subjective - Date & Time of Evaluation Date of Evaluation: 06/03/17 Time of Evaluation: 09:45 - Subjective Subjective: Patient seen and evaluated Intubated and sedated Physical examination - Head Exam Head Exam: ATRAUMATIC, NORMAL INSPECTION - Eye Exam Eye Exam: PERRL - ENT Exam ENT Exam: Mucous Membranes Moist - Neck Exam Neck Exam: Normal Inspection - Respiratory Exam Respiratory Exam: Decreased Breath Sounds - Cardiovascular Exam Cardiovascular Exam: Irregular Rhythm, +S1, +S2 - GI/Abdominal Exam GI & Abdominal Exam: Normal Bowel Sounds - Skin Skin Exam: Warm Objective - Vital Signs/Intake and Output Vital Signs (last 24 hours): Temp Pulse Resp BP Pulse Ox 98.6 F 81 23 150/53 L 100 06/03/17 20:00 06/03/17 21:36 06/03/17 21:36 06/03/17 21:36 06/03/17 21:36 Intake and Output: 06/03/17 06/04/17 18:59 06:59 Intake Total 1570 20 Output Total 260 0 Balance 1310 20 - Medications Medications: Current Medications Acetylcysteine (Acetylcysteine 20%) 4 ml INH RQ6 [facility] Last Admin: 06/03/17 19:23 Dose: 4 ml Albuterol/Ipratropium (Duoneb 3 Mg/0.5 Mg (3 Ml) Ud) 3 ml INH RQ6 [facility] Last Admin: 06/03/17 19:23 Dose: 3 ml Calcium Acetate (Phoslo) 667 mg PO TIDCC [facility] Last Admin: 06/03/17 17:15 Dose: 667 mg Diltiazem HCl (Cardizem) 30 mg PO Q6H [facility] Last Admin: 06/03/17 17:08 Dose: Not Given Dorzolamide HCl (Trusopt) 10 ml OU TID [facility] Last Admin: 06/03/17 17:14 Dose: 1 drop Ferric Sodium Gluconate Complex (Ferrlecit) 125 mg IVPB DAILY [facility] Stop: 06/11/17 14:01 Last Admin: 06/03/17 14:20 Dose: 125 mg Norepinephrine Bitartrate 4 mg (/ Sodium Chloride) 254 mls @ 15.24 mls/hr IV .[id number] PRN; Protocol; 4 MCG/MIN PRN Reason: TITRATE PER MD ORDER Last Titration: 06/03/17 03:00 Dose: 0 mcg/min, 0 mls/hr Linezolid (Zyvox 600mg/300ml D5w) 600 mg in 300 mls @ 200 mls/hr IVPB Q12 [facility] Last Admin: 06/03/17 21:20 Dose: 200 mls/hr Piperacillin Sod/Tazobactam Sod (Zosyn 2.25 Gm Iv Premix) 2.25 gm in 50 mls @ 100 mls/hr IVPB Q8H [facility] Last Admin: 06/03/17 21:42 Dose: 100 mls/hr Montelukast Sodium (Singulair) 10 mg PO DAILY [facility] Last Admin: 06/03/17 09:18 Dose: 10 mg Multivitamins (Hexavitamin) 1 tab PO DAILY [facility] Last Admin: 06/03/17 09:18 Dose: 1 tab Nystatin (Nystop Topical Powder) 1 applic TOP TID [facility] Last Admin: 06/03/17 17:14 Dose: 1 pow Pantoprazole Sodium (Protonix Susp) 40 mg NG DAILY [facility] Last Admin: 06/03/17 09:18 Dose: 40 mg - Labs Labs: 06/03/17 06:12 06/03/17 06:12 PT 12.4 SECONDS (9.7-12.2) H 06/03/17 17:53 INR 1.1 06/03/17 17:53 APTT 27 SECONDS (21-34) 06/03/17 17:53 Assessment and Plan - Assessment and Plan (Free Text) Assessment: (1) Atrial fibrillation, new onset Assessment & Plan: Rate controlled now. Continue Cardizem by mouth for rate control. (2) CHF (congestive heart failure) Assessment & Plan: IV Lasix (3) History of hyperlipidemia Assessment & Plan: Continue statin. (4) History of hypertension Assessment & Plan: Continue current medication. (5) Acute respiratory failure with hypoxia and hypercapnia On Mechanical ventilation (6) Pneumonia Assessment & Plan: ID on case on antibiotics (7) COPD exacerbation Assessment & Plan: On nebulizers
[2017-06-04 01:28] LABS: ABG ALLEN TEST POS; ABG MECHANICAL RATE 20; ARTERIAL BLOOD GAS MODE PRVC; ATERIAL BLOOD GAS PEEP 5; DRAW SITE RR
[2017-06-04] MEDS: Albuterol-Ipratrop 3 mg / 0.5 (3 ml) UD INH SCH ×4 (01:50→19:20)
[2017-06-04] MEDS: Acetylcysteine 20% Inhal Soln (4ml) INH SCH ×4 (01:50→19:20)
--- NOTE | 2017-06-04 02:23 | PN ---
DATE: SUBJECTIVE: Patient remains intubated on dialysis. Her blood pressure was dropped and they gave Albumin, but she is having a second dialysis done and today her white count remains high. She does have ecchymosis on her right and left arm and she is off the blood thinners. She was with atrial fib. She remains intubated. PHYSICAL EXAMINATION: VITAL SIGNS: Temperature is 98.6, pulse rate is 86, blood pressure 144/62 and respirations are 24. LUNGS: Have coarse breath sounds. HEART: S1 and S2, irregularly irregular. ABDOMEN: Soft and nontender. No guarding, no rigidity present. EXTREMITIES: Edematous and she is getting dialysis. LABORATORY DATA: White count is 25.5, her white count was 37.4 before. She is on Zyvox, Flagyl p.o. as well as on Zosyn at this time. Hemoglobin 6.9 and she may need blood transfusion. Her cultures have been all negative however. Sputum culture was ordered and still pending. Chest, abdomen and pelvic CT today, results of which show no acute finding in the abdomen and the chest shows atelectasis of left lower lobe, round glass pneumonitis and right upper lobe, two nodular opacities and right middle node extensive soft tissue stranding involving the left chest wall and upper arm, in this patient with ecchymosis in the above described areas. Scattered colonic diverticula, cardiomegaly, umbilical hernia containing fat. So, she is bleeding, extensive soft tissues stranding involving left chest wall and the upper arm where she is bleeding. The hemoglobin is dropping because of that. We will continue antibiotics at this time and to follow. Hellen Ospina MD
[2017-06-04 05:27] LABS: ABG ALLEN TEST POS; ABG MECHANICAL RATE 20; ARTERIAL BLOOD GAS MODE PRVC; ATERIAL BLOOD GAS PEEP 5; CARBOXYHEMOGLOBIN 1.5 % (0.5-1.5); DRAW SITE RR; HHB 0.7 % (0.0-5.0); METHEMOGLOBIN 1.7 % (0.0-3.0)
[2017-06-04] MEDS: Piperacill/Tazo 2.25gm in Dex 2.25 GM/50 ML BAG IVPB SCH ×3 (05:33→22:39)
[2017-06-04 06:21] LABS: BASO % 0.1 % (0.0-2.0); EOS # 0.2 K/uL (0.0-0.7); EOS % 0.9 % (0.0-4.0); HEMATOCRIT 22.8 % (34.0-47.0); LYMPH % 9.6 % (20.0-40.0); MEAN CELL VOLUME 85.3 fL (81.0-99.0); MEAN CORPUSCULAR HEMOGLOBIN 28.3 pg (27.0-31.0); MEAN CORPUSCULAR HGB CONC 33.2 g/dL (33.0-37.0); MEAN PLATELET VOLUME 9.5 fL (7.2-11.7); MONO # 1.1 K/uL (0.0-0.8); MONO % 5.2 % (0.0-10.0); NRBC % 1.4 % (0.0-2.0); PLATELET COUNT 115 K/uL (130-400); RED CELL DISTRIBUTION WIDTH 15.8 % (11.5-14.5)
[2017-06-04 06:45] LABS: POTASSIUM 3.1 mmol/L (3.6-5.2)
[2017-06-04 06:47] LABS: ALB/GLOB RATIO 1.2 (1.0-2.1); BILIRUBIN,TOTAL 1.3 mg/dL (0.2-1.3); TOTAL PROTEIN 5.1 g/dL (6.3-8.3)
[2017-06-04 06:48] LABS: MAGNESIUM 2.2 mg/dL (1.6-2.3); PHOSPHOROUS 4.6 mg/dL (2.5-4.5)
--- NOTE | 2017-06-04 08:09 | CP.CCUPN ---
<Chip Srinivasan - Last Filed: 06/04/17 08:06> CCU Subjective - Physician Review Subjective (Free Text): Patient seen and examined at bedside. Patient is intubated and sedated. Patient was re-intubated yesterday. She appears more responsive than yesterday, responding to verbal stimuli. Per nursing staff, she continues to have loose bowel movements; C. diff toxin negative. She remains easily arousable. Full ROS not obtained due to current status. Case discussed with house-staff; medical records and chart reviewed and labs discussed. 06/03/17 09:58 CCU Objective - Vital Signs / Intake & Output Vital Signs (Last 4 hours): Vital Signs Temp Pulse Resp BP Pulse Ox 06/04/17 08:00 98.6 F 78 19 129/62 100 06/04/17 07:19 78 20 116/59 L 100 06/04/17 07:05 78 20 122/49 L 100 06/04/17 07:00 82 20 117/57 L 100 06/04/17 06:49 73 20 117/57 L 100 06/04/17 06:34 82 20 119/50 L 100 06/04/17 06:28 89 20 131/59 L 100 06/04/17 06:04 77 20 121/49 L 100 06/04/17 06:00 75 20 100 06/04/17 05:49 81 20 112/53 L 100 06/04/17 05:34 77 20 119/56 L 100 06/04/17 05:19 78 20 116/54 L 100 06/04/17 05:04 79 20 145/59 L 100 06/04/17 05:00 78 20 100 06/04/17 04:49 80 20 127/51 L 100 06/04/17 04:34 82 20 122/60 100 06/04/17 04:20 80 20 133/41 L 100 Intake and Output (Last 8hrs): Intake & Output 06/03/17 06/04/17 06/04/17 22:59 06:59 14:59 Intake Total 160 510 20 Output Total 75 100 20 Balance 85 410 0 Weight 258 lb Intake: Intake, IV Amount 100 350 Right Distal Port 100 350 Internal Jugular Tube Feeding 60 160 20 Output: Urine 75 100 20 Urethral (Saenz) 75 100 20 Other: # Bowel Movements 1 1 - Physical Exam Head: Positive for: Atraumatic, Normocephalic Pupils: Positive for: PERRL Extroacular Muscles: Positive for: EOMI Mouth: Positive for: Moist Mucous Membranes Respiratory/Chest: Positive for: Decreased Breath Sounds (at bases) Cardiovascular: Positive for: Regular Rate and Rhythm, Normal S1, S2 Abdomen: Positive for: Normal Bowel Sounds. Negative for: Tenderness Upper Extremity: Positive for: Edema, Swelling, Other (ecchymosis b/l; faint pulses bilaterally) Lower Extremity: Positive for: NORMAL PULSES Neurological: Positive for: GCS=15, Other (follows commands) Skin: Positive for: Other (Ecchymosis on bilateral upper extremities) Psychiatric: Positive for: Alert - Medications Active Medications: Active Medications Generic Name Dose Route Start Last Admin Trade Name Freq PRN Reason Stop Dose Admin Acetylcysteine 4 ml 05/25/17 09:15 06/04/17 01:50 Acetylcysteine 20% INH 4 ml RQ6 ALISA Administration Albuterol/Ipratropium 3 ml 05/28/17 18:45 06/04/17 01:50 Duoneb 3 Mg/0.5 Mg (3 Ml) Ud INH 3 ml RQ6 ALISA Administration Calcium Acetate 667 mg 06/01/17 17:00 06/04/17 08:02 Phoslo PO 667 mg TIDCC ALISA Administration Diltiazem HCl 30 mg 05/26/17 12:00 06/04/17 05:33 Cardizem PO 30 mg Q6H ALISA Administration Dorzolamide HCl 10 ml 05/22/17 18:00 06/03/17 17:14 Trusopt OU 1 drop TID ALISA Administration Ferric Sodium Gluconate Complex 125 mg 06/03/17 14:00 06/03/17 14:20 Ferrlecit IVPB 06/11/17 14:01 125 mg DAILY ALISA Administration Norepinephrine Bitartrate 4 mg 254 mls @ 15.24 mls/hr 06/01/17 12:50 03:00 / Sodium Chloride IV 0 mcg/min .[id number] PRN 0 mls/hr TITRATE PER MD ORDER Titration Protocol 4 MCG/MIN Linezolid 600 mg in 300 mls @ 200 mls/hr 06/01/17 22:00 06/03/17 21:20 Zyvox 600mg/300ml D5w IVPB 200 mls/hr Q12 ALISA Administration Piperacillin Sod/Tazobactam Sod 2.25 gm in 50 mls @ 100 mls/hr 06/02/17 14:30 06/04/17 05:33 Zosyn 2.25 Gm Iv Premix IVPB 100 mls/hr Q8H ALISA Administration Montelukast Sodium 10 mg 05/23/17 10:00 06/03/17 09:18 Singulair PO 10 mg DAILY ALISA Administration Multivitamins 1 tab 05/22/17 13:45 06/03/17 09:18 Hexavitamin PO 1 tab DAILY ALISA Administration Nystatin 1 applic 05/27/17 10:30 06/03/17 17:14 Nystop Topical Powder TOP 1 pow TID ALISA Administration Pantoprazole Sodium 40 mg 05/23/17 10:00 06/03/17 09:18 Protonix Susp NG 40 mg DAILY ALISA Administration - Patient Studies Lab Studies: Lab Studies 06/04/17 06/04/17 06/04/17 Range/Units 06:16 06:16 05:16 WBC 21.0 H (4.8-10.8) K/uL RBC 2.68 L (3.80-5.20) Mil/uL Hgb 7.6 L (11.0-16.0) g/dL Hct 22.8 L (34.0-47.0) % MCV 85.3 D (81.0-99.0) fL MCH 28.3 (27.0-31.0) pg MCHC 33.2 (33.0-37.0) g/dL RDW 15.8 H (11.5-14.5) % Plt Count 115 L (130-400) K/uL MPV 9.5 (7.2-11.7) fL Neut % (Auto) 84.2 H (50.0-75.0) % Lymph % (Auto) 9.6 L (20.0-40.0) % [place] % (Auto) 5.2 (0.0-10.0) % Eos % (Auto) 0.9 (0.0-4.0) % Baso % (Auto) 0.1 (0.0-2.0) % Neut # 17.7 H (1.8-7.0) K/uL Lymph # 2.0 (1.0-4.3) K/uL [place] # 1.1 H (0.0-0.8) K/uL Eos # 0.2 (0.0-0.7) K/uL Baso # 0.0 (0.0-0.2) K/uL Neutrophils % (Manual) (50-75) % Band Neutrophils % (0-2) % Lymphocytes % (Manual) (20-40) % Monocytes % (Manual) (0-10) % Eosinophils % (Manual) (0-4) % Metamyelocytes % (0-0) % Myelocytes % (0-0) % Nucleated RBC % (0-0) % Platelet Estimate (NORMAL) Polychromasia Hypochromasia (manual) Poikilocytosis (manual Anisocytosis (manual) Microcytosis (manual) Macrocytosis (manual) Tear Drop Cells Ovalocytes PT (9.7-12.2) SECONDS INR APTT (21-34) SECONDS Fibrinogen (200-400) mg/dL D-Dimer, Quantitative (0-243) ng/mlDDU Puncture Site Rr pCO2 34 L (35-45) mm/Hg pO2 139 H (80-100) mm/Hg HCO3 28.6 H (21-28) mmol/L ABG pH 7.52 H (7.35-7.45) ABG Total CO2 28.8 H (22-28) mmol/L ABG O2 Saturation 99.3 H (95-98) % ABG Base Excess 4.7 H (-2.0-3.0) mmol/L ABG Hemoglobin 8.2 L (11.7-17.4) g/dL ABG Carboxyhemoglobin 1.5 (0.5-1.5) % POC ABG HHb (Measured) 0.7 (0.0-5.0) % ABG Methemoglobin 1.7 (0.0-3.0) % Sj Test Pos A-a O2 Difference 175.0 mm/Hg Respiratory Index 1.3 Hgb O2 Saturation 96.0 (95.0-98.0) % Vent Mode Prvc Mechanical Rate 20 FiO2 50.0 % Tidal Volume 500 PEEP 5 Sodium 138 (132-148) mmol/L Potassium 3.1 L (3.6-5.2) mmol/L Chloride 103 (98-107) mmol/L Carbon Dioxide 24 (22-30) mmol/L Anion Gap 14 (10-20) BUN 54 H (7-17) mg/dL Creatinine 2.7 H (0.7-1.2) MG/DL Est GFR ( Amer) 21 Est GFR (Non-Af Amer) 17 Random Glucose 97 (65-105) mg/dL Calcium 8.0 L (8.6-10.4) mg/dl Phosphorus 4.6 H (2.5-4.5) mg/dL Magnesium 2.2 (1.6-2.3) mg/dL Total Bilirubin 1.3 (0.2-1.3) mg/dL AST 130 H (14-36) U/L ALT 69 H (9-52) U/L Alkaline Phosphatase 50 (38-126) U/L Total Protein 5.1 L (6.3-8.3) g/dL Albumin 2.8 L D (3.5-5.0) g/dL Globulin 2.3 (2.2-3.9) gm/dL Albumin/Globulin Ratio 1.2 (1.0-2.1) Blood Type Blood Type Confirm Antibody Screen 06/03/17 06/03/17 06/02/17 Range/Units 17:53 06:12 05:52 WBC (4.8-10.8) K/uL RBC (3.80-5.20) Mil/uL Hgb (11.0-16.0) g/dL Hct (34.0-47.0) % MCV (81.0-99.0) fL MCH (27.0-31.0) pg MCHC (33.0-37.0) g/dL RDW (11.5-14.5) % Plt Count (130-400) K/uL MPV (7.2-11.7) fL Neut % (Auto) (50.0-75.0) % Lymph % (Auto) (20.0-40.0) % [place] % (Auto) (0.0-10.0) % Eos % (Auto) (0.0-4.0) % Baso % (Auto) (0.0-2.0) % Neut # (1.8-7.0) K/uL Lymph # (1.0-4.3) K/uL [place] # (0.0-0.8) K/uL Eos # (0.0-0.7) K/uL Baso # (0.0-0.2) K/uL Neutrophils % (Manual) 81 H (50-75) % Band Neutrophils % 1 (0-2) % Lymphocytes % (Manual) 8 L (20-40) % Monocytes % (Manual) 6 (0-10) % Eosinophils % (Manual) 1 (0-4) % Metamyelocytes % 1 H (0-0) % Myelocytes % 2 H (0-0) % Nucleated RBC % 1 H (0-0) % Platelet Estimate Normal (NORMAL) Polychromasia Slight Hypochromasia (manual) Marked Poikilocytosis (manual Slight Anisocytosis (manual) Slight Microcytosis (manual) Slight Macrocytosis (manual) Slight Tear Drop Cells Slight Ovalocytes Slight PT 12.4 H (9.7-12.2) SECONDS INR 1.1 APTT 27 (21-34) SECONDS Fibrinogen 589 H (200-400) mg/dL D-Dimer, Quantitative 779 H (0-243) ng/mlDDU Puncture Site Rr pCO2 38 (35-45) mm/Hg pO2 147 H (80-100) mm/Hg HCO3 24.1 (21-28) mmol/L ABG pH 7.40 (7.35-7.45) ABG Total CO2 24.7 (22-28) mmol/L ABG O2 Saturation 99.8 H (95-98) % ABG Base Excess -1.1 (-2.0-3.0) mmol/L ABG Hemoglobin (11.7-17.4) g/dL ABG Carboxyhemoglobin (0.5-1.5) % POC ABG HHb (Measured) (0.0-5.0) % ABG Methemoglobin (0.0-3.0) % Sj Test Pos A-a O2 Difference 162.0 mm/Hg Respiratory Index 1.1 Hgb O2 Saturation (95.0-98.0) % Vent Mode Prvc Mechanical Rate 20 FiO2 50.0 % Tidal Volume 500 PEEP 5 Sodium (132-148) mmol/L Potassium (3.6-5.2) mmol/L Chloride (98-107) mmol/L Carbon Dioxide (22-30) mmol/L Anion Gap (10-20) BUN (7-17) mg/dL Creatinine (0.7-1.2) MG/DL Est GFR ( Amer) Est GFR (Non-Af Amer) Random Glucose (65-105) mg/dL Calcium (8.6-10.4) mg/dl Phosphorus (2.5-4.5) mg/dL Magnesium (1.6-2.3) mg/dL Total Bilirubin (0.2-1.3) mg/dL AST (14-36) U/L ALT (9-52) U/L Alkaline Phosphatase (38-126) U/L Total Protein (6.3-8.3) g/dL Albumin (3.5-5.0) g/dL Globulin (2.2-3.9) gm/dL Albumin/Globulin Ratio (1.0-2.1) Blood Type Blood Type Confirm Antibody Screen 06/01/17 Range/Units 06:53 WBC (4.8-10.8) K/uL RBC (3.80-5.20) Mil/uL Hgb (11.0-16.0) g/dL Hct (34.0-47.0) % MCV (81.0-99.0) fL MCH (27.0-31.0) pg MCHC (33.0-37.0) g/dL RDW (11.5-14.5) % Plt Count (130-400) K/uL MPV (7.2-11.7) fL Neut % (Auto) (50.0-75.0) % Lymph % (Auto) (20.0-40.0) % [place] % (Auto) (0.0-10.0) % Eos % (Auto) (0.0-4.0) % Baso % (Auto) (0.0-2.0) % Neut # (1.8-7.0) K/uL Lymph # (1.0-4.3) K/uL [place] # (0.0-0.8) K/uL Eos # (0.0-0.7) K/uL Baso # (0.0-0.2) K/uL Neutrophils % (Manual) (50-75) % Band Neutrophils % (0-2) % Lymphocytes % (Manual) (20-40) % Monocytes % (Manual) (0-10) % Eosinophils % (Manual) (0-4) % Metamyelocytes % (0-0) % Myelocytes % (0-0) % Nucleated RBC % (0-0) % Platelet Estimate (NORMAL) Polychromasia Hypochromasia (manual) Poikilocytosis (manual Anisocytosis (manual) Microcytosis (manual) Macrocytosis (manual) Tear Drop Cells Ovalocytes PT (9.7-12.2) SECONDS INR APTT (21-34) SECONDS Fibrinogen (200-400) mg/dL D-Dimer, Quantitative (0-243) ng/mlDDU Puncture Site pCO2 (35-45) mm/Hg pO2 (80-100) mm/Hg HCO3 (21-28) mmol/L ABG pH (7.35-7.45) ABG Total CO2 (22-28) mmol/L ABG O2 Saturation (95-98) % ABG Base Excess (-2.0-3.0) mmol/L ABG Hemoglobin (11.7-17.4) g/dL ABG Carboxyhemoglobin (0.5-1.5) % POC ABG HHb (Measured) (0.0-5.0) % ABG Methemoglobin (0.0-3.0) % Sj Test A-a O2 Difference mm/Hg Respiratory Index Hgb O2 Saturation (95.0-98.0) % Vent Mode Mechanical Rate FiO2 % Tidal Volume PEEP Sodium (132-148) mmol/L Potassium (3.6-5.2) mmol/L Chloride (98-107) mmol/L Carbon Dioxide (22-30) mmol/L Anion Gap (10-20) BUN (7-17) mg/dL Creatinine (0.7-1.2) MG/DL Est GFR ( Amer) Est GFR (Non-Af Amer) Random Glucose (65-105) mg/dL Calcium (8.6-10.4) mg/dl Phosphorus (2.5-4.5) mg/dL Magnesium (1.6-2.3) mg/dL Total Bilirubin (0.2-1.3) mg/dL AST (14-36) U/L ALT (9-52) U/L Alkaline Phosphatase (38-126) U/L Total Protein (6.3-8.3) g/dL Albumin (3.5-5.0) g/dL Globulin (2.2-3.9) gm/dL Albumin/Globulin Ratio (1.0-2.1) Blood Type A POSITIVE Blood Type Confirm A POSITIVE Antibody Screen Negative Laboratory Results - last 24 hr 06/01/17 06/02/17 06/03/17 06:53 05:52 06:12 WBC RBC Hgb Hct MCV MCH MCHC RDW Plt Count MPV Neut % (Auto) Lymph % (Auto) [place] % (Auto) Eos % (Auto) Baso % (Auto) Neut # Lymph # [place] # Eos # Baso # Neutrophils % (Manual) 81 H Band Neutrophils % 1 Lymphocytes % (Manual) 8 L Monocytes % (Manual) 6 Eosinophils % (Manual) 1 Metamyelocytes % 1 H Myelocytes % 2 H Nucleated RBC % 1 H Platelet Estimate Normal Polychromasia Slight Hypochromasia (manual) Marked Poikilocytosis (manual Slight Anisocytosis (manual) Slight Microcytosis (manual) Slight Macrocytosis (manual) Slight Tear Drop Cells Slight Ovalocytes Slight PT INR APTT Fibrinogen D-Dimer, Quantitative Puncture Site Rr pCO2 38 pO2 147 H HCO3 24.1 ABG pH 7.40 ABG Total CO2 24.7 ABG O2 Saturation 99.8 H ABG Base Excess -1.1 ABG Hemoglobin ABG Carboxyhemoglobin POC ABG HHb (Measured) ABG Methemoglobin Sj Test Pos A-a O2 Difference 162.0 Respiratory Index 1.1 Hgb O2 Saturation Vent Mode Prvc Mechanical Rate 20 FiO2 50.0 Tidal Volume 500 PEEP 5 Sodium Potassium Chloride Carbon Dioxide Anion Gap BUN Creatinine Est GFR ( Amer) Est GFR (Non-Af Amer) Random Glucose Calcium Phosphorus Magnesium Total Bilirubin AST ALT Alkaline Phosphatase Total Protein Albumin Globulin Albumin/Globulin Ratio Blood Type A POSITIVE Blood Type Confirm A POSITIVE Antibody Screen Negative 06/03/17 06/04/17 06/04/17 17:53 05:16 06:16 WBC 21.0 H RBC 2.68 L Hgb 7.6 L Hct 22.8 L MCV 85.3 D MCH 28.3 MCHC 33.2 RDW 15.8 H Plt Count 115 L MPV 9.5 Neut % (Auto) 84.2 H Lymph % (Auto) 9.6 L [place] % (Auto) 5.2 Eos % (Auto) 0.9 Baso % (Auto) 0.1 Neut # 17.7 H Lymph # 2.0 [place] # 1.1 H Eos # 0.2 Baso # 0.0 Neutrophils % (Manual) Band Neutrophils % Lymphocytes % (Manual) Monocytes % (Manual) Eosinophils % (Manual) Metamyelocytes % Myelocytes % Nucleated RBC % Platelet Estimate Polychromasia Hypochromasia (manual) Poikilocytosis (manual Anisocytosis (manual) Microcytosis (manual) Macrocytosis (manual) Tear Drop Cells Ovalocytes PT 12.4 H INR 1.1 APTT 27 Fibrinogen 589 H D-Dimer, Quantitative 779 H Puncture Site Rr pCO2 34 L pO2 139 H HCO3 28.6 H ABG pH 7.52 H ABG Total CO2 28.8 H ABG O2 Saturation 99.3 H ABG Base Excess 4.7 H ABG Hemoglobin 8.2 L ABG Carboxyhemoglobin 1.5 POC ABG HHb (Measured) 0.7 ABG Methemoglobin 1.7 Js Test Pos A-a O2 Difference 175.0 Respiratory Index 1.3 Hgb O2 Saturation 96.0 Vent Mode Prvc Mechanical Rate 20 FiO2 50.0 Tidal Volume 500 PEEP 5 Sodium Potassium Chloride Carbon Dioxide Anion Gap BUN Creatinine Est GFR ( Amer) Est GFR (Non-Af Amer) Random Glucose Calcium Phosphorus Magnesium Total Bilirubin AST ALT Alkaline Phosphatase Total Protein Albumin Globulin Albumin/Globulin Ratio Blood Type Blood Type Confirm Antibody Screen 06/04/17 06:16 WBC RBC Hgb Hct MCV MCH MCHC RDW Plt Count MPV Neut % (Auto) Lymph % (Auto) [place] % (Auto) Eos % (Auto) Baso % (Auto) Neut # Lymph # [place] # Eos # Baso # Neutrophils % (Manual) Band Neutrophils % Lymphocytes % (Manual) Monocytes % (Manual) Eosinophils % (Manual) Metamyelocytes % Myelocytes % Nucleated RBC % Platelet Estimate Polychromasia Hypochromasia (manual) Poikilocytosis (manual Anisocytosis (manual) Microcytosis (manual) Macrocytosis (manual) Tear Drop Cells Ovalocytes PT INR APTT Fibrinogen D-Dimer, Quantitative Puncture Site pCO2 pO2 HCO3 ABG pH ABG Total CO2 ABG O2 Saturation ABG Base Excess ABG Hemoglobin ABG Carboxyhemoglobin POC ABG HHb (Measured) ABG Methemoglobin Sj Test A-a O2 Difference Respiratory Index Hgb O2 Saturation Vent Mode Mechanical Rate FiO2 Tidal Volume PEEP Sodium 138 Potassium 3.1 L Chloride 103 Carbon Dioxide 24 Anion Gap 14 BUN 54 H Creatinine 2.7 H Est GFR ( Amer) 21 Est GFR (Non-Af Amer) 17 Random Glucose 97 Calcium 8.0 L Phosphorus 4.6 H Magnesium 2.2 Total Bilirubin 1.3 AST 130 H ALT 69 H Alkaline Phosphatase 50 Total Protein 5.1 L Albumin 2.8 L D Globulin 2.3 Albumin/Globulin Ratio 1.2 Blood Type Blood Type Confirm Antibody Screen Review of Systems - Review of Systems Systems not reviewed;Unavailable: Intubated Critical Care Progress Note - Vent Settings MODE:: PRVC TIDAL VOLUME:: 500 RESP RATE:: 20 FIO2:: 50 PEEP:: 5 - Extremities/Vascular Does the Patient have a Central Venous Catheter?: Yes Insertion Site: Internal Jugular Vein Does the Patient have a Saenz Catheter?: Yes Catheter Insertion Criteria: Need for accurate measurement of output in critically ill patient - Restraints Justification for Restraints: High risk for self extubation, High risk for removing IV access - Prophylaxis GI Prophylaxis GI: PPI - Prophylaxis DVT Prophylaxis DVT: SCDs Assessment/Plan (1) Respiratory acidosis Current Visit: Yes Status: Acute (2) COPD exacerbation Current Visit: Yes Status: Acute (3) Elevated troponin Current Visit: Yes Status: Acute (4) Atrial fibrillation, new onset Current Visit: Yes Status: Acute (5) Cardiomegaly Current Visit: Yes Status: Acute (6) Elevated WBCs Current Visit: Yes Status: Acute (7) Abnormal RBC indices Current Visit: Yes Status: Acute (8) History of hypertension Current Visit: Yes Status: Acute (9) History of hyperlipidemia Current Visit: Yes Status: Acute (10) Change in mental state Current Visit: Yes Status: Acute (11) History of dementia Current Visit: Yes Status: Acute (12) History of gastroesophageal reflux (GERD) Current Visit: Yes Status: Acute (13) History of glaucoma Current Visit: Yes Status: Acute (14) Prophylactic measure Current Visit: Yes Status: Acute - Assessment and Plan (Free Text) Assessment: 76 year old female with PMHx of COPD, AFib, Asthma, HTN, Cardiomegaly with Diastolic Heart Failure, Dementia presenting with acute respiratory failure likely secondary COPD exacerbation, resulting in intubation (05/22). Extubated and Re-intubated on 06/01. Today 06/04/2017: Pulm: Acute respiratory failure secondary to pulmonary edema - Re-intubated 06/01 on CPAP - 06/01 CXR: Prominent patchy increased markings at both lung bases; left greater than right suggestive for infiltrate and or atelectasis. Suggestion of a small left and or trace right pleural effusion. - f/u ABGs - Mucomyst 4 ml RQ6 - DuoNeb 3 ml RQ6 - Singulair 10 mg PO daily - Lasix 40 mg IVP daily GI: NPO; Stool occult blood positive - Drop in Hgb, Stool occult blood: Positive - 06/01 C. diff toxin negative CV: Mildly hypotensive, Acute on chronic decompensated diastolic heart failure - norepinephrine for pressure support - A. fib rate controlled with Cardizem 30 mg PO daily ID: Empiric therapy for possible underlying pneumonia; Candidal rash bilateral breast - elevated procalcitonin - linezolid 600mg iv q12 started 06/01 - pip/tazo 3.375g iv q8 started 05/31 - Nystatin powder for rash underneath breasts b/l - f/u sputum culture Heme: Stool occult blood positive - Bilateral ecchymosis in upper extremities with edema now extending into trunk. - Stopped all anti-platelet medications ASA and Lovenox due to anemia - transfused with 2 units of pRBC 06/01, 1 unit pRBC 06/02, 2 units 06/03 - 05/31 venous duplex scan of bilaterally upper extremities: Right - no abnormal findings. Left - not done due to swelling. Renal: elevated BUN: Cr, urine output decreased today - Nephro consulted, will f/u reccs - Hemodialysis x2 - will continue to monitor, hold enalapril - per nephro d/c ACEi and Lasix Endo: No acute issues Neuro: More alert compared to yesterday DVT proph - SCD, hold Lovenox GI proph - Protonix 40 mg Saenz for strict I/O's during acute illness Multivitamins Code status - full code <Albert Tellez - Last Filed: 06/04/17 18:20> CCU Objective - Vital Signs / Intake & Output Vital Signs (Last 4 hours): Vital Signs Temp Pulse Resp BP Pulse Ox 06/04/17 13:00 82 21 146/59 L 100 06/04/17 12:00 99 F 74 20 121/54 L 100 Intake and Output (Last 8hrs): Intake & Output 06/04/17 06/04/17 06/04/17 06:59 14:59 22:59 Intake Total 510 540 Output Total 100 20 Balance 410 520 Weight 258 lb Intake: Intake, IV Amount 350 400 Right Distal Port 350 Internal Jugular Right Medial Port 400 Internal Jugular Tube Feeding 160 140 Output: Urine 100 20 Urethral (Saenz) 100 20 Other: # Bowel Movements 1 - Medications Active Medications: Active Medications Generic Name Dose Route Start Last Admin Trade Name Freq PRN Reason Stop Dose Admin Acetylcysteine 4 ml 05/25/17 09:15 06/04/17 14:08 Acetylcysteine 20% INH 4 ml RQ6 ALISA Administration Albuterol/Ipratropium 3 ml 05/28/17 18:45 06/04/17 14:08 Duoneb 3 Mg/0.5 Mg (3 Ml) Ud INH 3 ml RQ6 ALISA Administration Calcium Acetate 667 mg 06/01/17 17:00 06/04/17 13:00 Phoslo PO 667 mg TIDCC ALISA Administration Diltiazem HCl 30 mg 05/26/17 12:00 06/04/17 13:00 Cardizem PO 30 mg Q6H ALISA Administration Dorzolamide HCl 10 ml 05/22/17 18:00 06/04/17 13:33 Trusopt OU 1 drop TID ALISA Administration Epoetin Ken 10,000 unit 06/05/17 09:00 Procrit IV MWF ALISA Ferric Sodium Gluconate Complex 125 mg 06/03/17 14:00 06/04/17 09:32 Ferrlecit IVPB 06/11/17 14:01 125 mg DAILY ALISA Administration Norepinephrine Bitartrate 4 mg 254 mls @ 15.24 mls/hr 06/01/17 12:50 03:00 / Sodium Chloride IV 0 mcg/min .[id number] PRN 0 mls/hr TITRATE PER MD ORDER Titration Protocol 4 MCG/MIN Linezolid 600 mg in 300 mls @ 200 mls/hr 06/01/17 22:00 06/04/17 09:46 Zyvox 600mg/300ml D5w IVPB 200 mls/hr Q12 ALISA Administration Piperacillin Sod/Tazobactam Sod 2.25 gm in 50 mls @ 100 mls/hr 06/02/17 14:30 06/04/17 13:35 Zosyn 2.25 Gm Iv Premix IVPB 100 mls/hr Q8H ALISA Administration Montelukast Sodium 10 mg 05/23/17 10:00 06/04/17 09:45 Singulair PO 10 mg DAILY ALISA Administration Multivitamins 1 tab 05/22/17 13:45 06/04/17 09:32 Hexavitamin PO 1 tab DAILY ALISA Administration Nystatin 1 applic 05/27/17 10:30 06/04/17 13:33 Nystop Topical Powder TOP 1 pow TID ALISA Administration Pantoprazole Sodium 40 mg 05/23/17 10:00 06/04/17 09:32 Protonix Susp NG 40 mg DAILY ALISA Administration - Patient Studies Lab Studies: Microbiology Studies 06/02/17 22:59 Gram Stain - Preliminary Sputum Sputum Culture - Preliminary No growth. Lab Studies 06/04/17 06/04/17 06/04/17 Range/Units 12:57 06:16 06:16 WBC 21.0 H (4.8-10.8) K/uL RBC 2.68 L (3.80-5.20) Mil/uL Hgb 7.6 L (11.0-16.0) g/dL Hct 22.8 L (34.0-47.0) % MCV 85.3 D (81.0-99.0) fL MCH 28.3 (27.0-31.0) pg MCHC 33.2 (33.0-37.0) g/dL RDW 15.8 H (11.5-14.5) % Plt Count 115 L (130-400) K/uL MPV 9.5 (7.2-11.7) fL Neut % (Auto) 84.2 H (50.0-75.0) % Lymph % (Auto) 9.6 L (20.0-40.0) % [place] % (Auto) 5.2 (0.0-10.0) % Eos % (Auto) 0.9 (0.0-4.0) % Baso % (Auto) 0.1 (0.0-2.0) % Neut # 17.7 H (1.8-7.0) K/uL Lymph # 2.0 (1.0-4.3) K/uL [place] # 1.1 H (0.0-0.8) K/uL Eos # 0.2 (0.0-0.7) K/uL Baso # 0.0 (0.0-0.2) K/uL Neutrophils % (Manual) 85 H (50-75) % Band Neutrophils % 1 (0-2) % Lymphocytes % (Manual) 6 L (20-40) % Monocytes % (Manual) 6 (0-10) % Eosinophils % (Manual) 2 (0-4) % Nucleated RBC % 1 H (0-0) % Platelet Estimate Slightly decreased L (NORMAL) Polychromasia Slight Hypochromasia (manual) Slight Poikilocytosis (manual Slight Anisocytosis (manual) Slight Microcytosis (manual) Slight Macrocytosis (manual) Slight PT (9.7-12.2) SECONDS INR APTT (21-34) SECONDS Fibrinogen 655 H (200-400) mg/dL Fibrin Degrad Products Positive H (NEGATIVE) Fibrin Degrad Prod, Qt >10<40 H (<10) ug/mL D-Dimer, Quantitative (0-243) ng/mlDDU Puncture Site pCO2 (35-45) mm/Hg pO2 (80-100) mm/Hg HCO3 (21-28) mmol/L ABG pH (7.35-7.45) ABG Total CO2 (22-28) mmol/L ABG O2 Saturation (95-98) % ABG Base Excess (-2.0-3.0) mmol/L ABG Hemoglobin (11.7-17.4) g/dL ABG Carboxyhemoglobin (0.5-1.5) % POC ABG HHb (Measured) (0.0-5.0) % ABG Methemoglobin (0.0-3.0) % Sj Test A-a O2 Difference mm/Hg Respiratory Index Hgb O2 Saturation (95.0-98.0) % Vent Mode Mechanical Rate FiO2 % Tidal Volume PEEP Sodium 138 (132-148) mmol/L Potassium 3.1 L (3.6-5.2) mmol/L Chloride 103 (98-107) mmol/L Carbon Dioxide 24 (22-30) mmol/L Anion Gap 14 (10-20) BUN 54 H (7-17) mg/dL Creatinine 2.7 H (0.7-1.2) MG/DL Est GFR ( Amer) 21 Est GFR (Non-Af Amer) 17 Random Glucose 97 (65-105) mg/dL Calcium 8.0 L (8.6-10.4) mg/dl Phosphorus 4.6 H (2.5-4.5) mg/dL Magnesium 2.2 (1.6-2.3) mg/dL Total Bilirubin 1.3 (0.2-1.3) mg/dL AST 130 H (14-36) U/L ALT 69 H (9-52) U/L Alkaline Phosphatase 50 (38-126) U/L Total Protein 5.1 L (6.3-8.3) g/dL Albumin 2.8 L D (3.5-5.0) g/dL Globulin 2.3 (2.2-3.9) gm/dL Albumin/Globulin Ratio 1.2 (1.0-2.1) 06/04/17 06/03/17 06/02/17 Range/Units 05:16 17:53 05:52 WBC (4.8-10.8) K/uL RBC (3.80-5.20) Mil/uL Hgb (11.0-16.0) g/dL Hct (34.0-47.0) % MCV (81.0-99.0) fL MCH (27.0-31.0) pg MCHC (33.0-37.0) g/dL RDW (11.5-14.5) % Plt Count (130-400) K/uL MPV (7.2-11.7) fL Neut % (Auto) (50.0-75.0) % Lymph % (Auto) (20.0-40.0) % Obion % (Auto) (0.0-10.0) % Eos % (Auto) (0.0-4.0) % Baso % (Auto) (0.0-2.0) % Neut # (1.8-7.0) K/uL Lymph # (1.0-4.3) K/uL Obion # (0.0-0.8) K/uL Eos # (0.0-0.7) K/uL Baso # (0.0-0.2) K/uL Neutrophils % (Manual) (50-75) % Band Neutrophils % (0-2) % Lymphocytes % (Manual) (20-40) % Monocytes % (Manual) (0-10) % Eosinophils % (Manual) (0-4) % Nucleated RBC % (0-0) % Platelet Estimate (NORMAL) Polychromasia Hypochromasia (manual) Poikilocytosis (manual Anisocytosis (manual) Microcytosis (manual) Macrocytosis (manual) PT 12.4 H (9.7-12.2) SECONDS INR 1.1 APTT 27 (21-34) SECONDS Fibrinogen 589 H (200-400) mg/dL Fibrin Degrad Products (NEGATIVE) Fibrin Degrad Prod, Qt (<10) ug/mL D-Dimer, Quantitative 779 H (0-243) ng/mlDDU Puncture Site Rr Rr pCO2 34 L 38 (35-45) mm/Hg pO2 139 H 147 H (80-100) mm/Hg HCO3 28.6 H 24.1 (21-28) mmol/L ABG pH 7.52 H 7.40 (7.35-7.45) ABG Total CO2 28.8 H 24.7 (22-28) mmol/L ABG O2 Saturation 99.3 H 99.8 H (95-98) % ABG Base Excess 4.7 H -1.1 (-2.0-3.0) mmol/L ABG Hemoglobin 8.2 L (11.7-17.4) g/dL ABG Carboxyhemoglobin 1.5 (0.5-1.5) % POC ABG HHb (Measured) 0.7 (0.0-5.0) % ABG Methemoglobin 1.7 (0.0-3.0) % Sj Test Pos Pos A-a O2 Difference 175.0 162.0 mm/Hg Respiratory Index 1.3 1.1 Hgb O2 Saturation 96.0 (95.0-98.0) % Vent Mode Prvc Prvc Mechanical Rate 20 20 FiO2 50.0 50.0 % Tidal Volume 500 500 PEEP 5 5 Sodium (132-148) mmol/L Potassium (3.6-5.2) mmol/L Chloride (98-107) mmol/L Carbon Dioxide (22-30) mmol/L Anion Gap (10-20) BUN (7-17) mg/dL Creatinine (0.7-1.2) MG/DL Est GFR ( Amer) Est GFR (Non-Af Amer) Random Glucose (65-105) mg/dL Calcium (8.6-10.4) mg/dl Phosphorus (2.5-4.5) mg/dL Magnesium (1.6-2.3) mg/dL Total Bilirubin (0.2-1.3) mg/dL AST (14-36) U/L ALT (9-52) U/L Alkaline Phosphatase (38-126) U/L Total Protein (6.3-8.3) g/dL Albumin (3.5-5.0) g/dL Globulin (2.2-3.9) gm/dL Albumin/Globulin Ratio (1.0-2.1) Laboratory Results - last 24 hr 06/02/17 06/03/17 06/04/17 05:52 17:53 05:16 WBC RBC Hgb Hct MCV MCH MCHC RDW Plt Count MPV Neut % (Auto) Lymph % (Auto) [place] % (Auto) Eos % (Auto) Baso % (Auto) Neut # Lymph # [place] # Eos # Baso # Neutrophils % (Manual) Band Neutrophils % Lymphocytes % (Manual) Monocytes % (Manual) Eosinophils % (Manual) Nucleated RBC % Platelet Estimate Polychromasia Hypochromasia (manual) Poikilocytosis (manual Anisocytosis (manual) Microcytosis (manual) Macrocytosis (manual) PT 12.4 H INR 1.1 APTT 27 Fibrinogen 589 H Fibrin Degrad Products Fibrin Degrad Prod, Qt D-Dimer, Quantitative 779 H Puncture Site Rr Rr pCO2 38 34 L pO2 147 H 139 H HCO3 24.1 28.6 H ABG pH 7.40 7.52 H ABG Total CO2 24.7 28.8 H ABG O2 Saturation 99.8 H 99.3 H ABG Base Excess -1.1 4.7 H ABG Hemoglobin 8.2 L ABG Carboxyhemoglobin 1.5 POC ABG HHb (Measured) 0.7 ABG Methemoglobin 1.7 Sj Test Pos Pos A-a O2 Difference 162.0 175.0 Respiratory Index 1.1 1.3 Hgb O2 Saturation 96.0 Vent Mode Prvc Prvc Mechanical Rate 20 20 FiO2 50.0 50.0 Tidal Volume 500 500 PEEP 5 5 Sodium Potassium Chloride Carbon Dioxide Anion Gap BUN Creatinine Est GFR ( Amer) Est GFR (Non-Af Amer) Random Glucose Calcium Phosphorus Magnesium Total Bilirubin AST ALT Alkaline Phosphatase Total Protein Albumin Globulin Albumin/Globulin Ratio 06/04/17 06/04/17 06/04/17 06:16 06:16 12:57 WBC 21.0 H RBC 2.68 L Hgb 7.6 L Hct 22.8 L MCV 85.3 D MCH 28.3 MCHC 33.2 RDW 15.8 H Plt Count 115 L MPV 9.5 Neut % (Auto) 84.2 H Lymph % (Auto) 9.6 L [place] % (Auto) 5.2 Eos % (Auto) 0.9 Baso % (Auto) 0.1 Neut # 17.7 H Lymph # 2.0 [place] # 1.1 H Eos # 0.2 Baso # 0.0 Neutrophils % (Manual) 85 H Band Neutrophils % 1 Lymphocytes % (Manual) 6 L Monocytes % (Manual) 6 Eosinophils % (Manual) 2 Nucleated RBC % 1 H Platelet Estimate Slightly decreased L Polychromasia Slight Hypochromasia (manual) Slight Poikilocytosis (manual Slight Anisocytosis (manual) Slight Microcytosis (manual) Slight Macrocytosis (manual) Slight PT INR APTT Fibrinogen 655 H Fibrin Degrad Products Positive H Fibrin Degrad Prod, Qt >10<40 H D-Dimer, Quantitative Puncture Site pCO2 pO2 HCO3 ABG pH ABG Total CO2 ABG O2 Saturation ABG Base Excess ABG Hemoglobin ABG Carboxyhemoglobin POC ABG HHb (Measured) ABG Methemoglobin Sj Test A-a O2 Difference Respiratory Index Hgb O2 Saturation Vent Mode Mechanical Rate FiO2 Tidal Volume PEEP Sodium 138 Potassium 3.1 L Chloride 103 Carbon Dioxide 24 Anion Gap 14 BUN 54 H Creatinine 2.7 H Est GFR ( Amer) 21 Est GFR (Non-Af Amer) 17 Random Glucose 97 Calcium 8.0 L Phosphorus 4.6 H Magnesium 2.2 Total Bilirubin 1.3 AST 130 H ALT 69 H Alkaline Phosphatase 50 Total Protein 5.1 L Albumin 2.8 L D Globulin 2.3 Albumin/Globulin Ratio 1.2 Assessment/Plan (1) Acute respiratory failure with hypoxia and hypercapnia Current Visit: Yes Status: Acute Attending/Attestation - Attestation I have personally seen and examined this patient.: Yes I have fully participated in the care of the patient.: Yes I have reviewed all pertinent clinical information: Yes Notes (Text): 06/04/17 15:06 I have seen and examined the patient. Medical records, lab studies, and imaging were reviewed by me and a management plan was formulated on multidisciplinary rounds with resident Dr. Srinivasan. I agree with their above documented assessment and plan. Patient had recent bleeding from Lovenox with concomitant worsening renal failure, which I believe led to a hypovolemic state that worsened her renal function. Her bleeding source appears to only have been into her left arm and flank, which also appears to have subsided, h/h stabilizing, will monitor. Started PS trials again. patient getting dialyzed for fluid removal. Critical Care Time 35 minutes. Multi-disciplinary rounds were performed with house staff, nursing, speech therapy, respiratory therapy, pharmacy and nutrition with integrated input from the primary team/attending and other consulting services. The documented time is cumulative and includes review of patient data/exams/labs/chart review and examination of the patient on rounds and throughout the day; time is exclusive of any procedures or teaching time. 06/04/17 15:07 06/04/17 15:20
[2017-06-04 08:15] LABS: EOSINOPHIL 2 % (0-4); NEUTROPHIL 85 % (50-75); NUCLEATED RED BLOOD CELL 1 % (0-0); TOTAL CELLS COUNTED 100
--- NOTE | 2017-06-04 09:21 | RAD ---
Chest x-ray single frontal view History: Intubated. Comparison: 06/03/2017 Findings: Lines and tubes in stable position. Moderate venous congestion. Right hilar prominence. Linear consolidative changes at the right lung base. Prominent dense consolidative changes in the left mid to lower lung zone. Small left pleural effusion. Cardiomegaly. Degenerative changes in the spine and shoulders. Limited study as the patient is rotated. Impression: Lines and tubes in stable position. Moderate venous congestion. Right hilar prominence. Linear consolidative changes at the right lung base. Prominent dense consolidative changes in the left mid to lower lung zone. Small left pleural effusion. Cardiomegaly.
[2017-06-04] MEDS: Multiple Vitamins Tab PO SCH (09:32)
[2017-06-04] MEDS: Ferric Sodium Gluconat Complex 62.5 mg/5 ml Vial IVPB SCH (09:32)
[2017-06-04] MEDS: Pantoprazole 40 mg Susp UD NG SCH (09:32)
[2017-06-04] MEDS ORDERED: Potassium Chloride 20 mEq/15 ml LIQ UD PO ONE (09:34)
--- NOTE | 2017-06-04 09:39 | CP.PCM.PN ---
Subjective - Date & Time of Evaluation Date of Evaluation: 06/04/17 Time of Evaluation: 09:37 - Subjective Subjective: intubated arousable uop charted 660cc labs noted Objective - Vital Signs/Intake and Output Vital Signs (last 24 hours): Temp Pulse Resp BP Pulse Ox 98.6 F 78 19 129/62 100 06/04/17 08:00 06/04/17 08:00 06/04/17 08:00 06/04/17 08:00 06/04/17 08:00 Intake and Output: 06/04/17 06/04/17 06:59 18:59 Intake Total 620 40 Output Total 130 20 Balance 490 20 - Medications Medications: Current Medications Acetylcysteine (Acetylcysteine 20%) 4 ml INH RQ6 [facility] Last Admin: 06/04/17 08:07 Dose: 4 ml Albuterol/Ipratropium (Duoneb 3 Mg/0.5 Mg (3 Ml) Ud) 3 ml INH RQ6 [facility] Last Admin: 06/04/17 08:07 Dose: 3 ml Calcium Acetate (Phoslo) 667 mg PO TIDCC [facility] Last Admin: 06/04/17 08:02 Dose: 667 mg Diltiazem HCl (Cardizem) 30 mg PO Q6H [facility] Last Admin: 06/04/17 05:33 Dose: 30 mg Dorzolamide HCl (Trusopt) 10 ml OU TID [facility] Last Admin: 06/03/17 17:14 Dose: 1 drop Ferric Sodium Gluconate Complex (Ferrlecit) 125 mg IVPB DAILY [facility] Stop: 06/11/17 14:01 Last Admin: 06/04/17 09:32 Dose: 125 mg Norepinephrine Bitartrate 4 mg (/ Sodium Chloride) 254 mls @ 15.24 mls/hr IV .[id number] PRN; Protocol; 4 MCG/MIN PRN Reason: TITRATE PER MD ORDER Last Titration: 06/03/17 03:00 Dose: 0 mcg/min, 0 mls/hr Linezolid (Zyvox 600mg/300ml D5w) 600 mg in 300 mls @ 200 mls/hr IVPB Q12 [facility] Last Admin: 06/03/17 21:20 Dose: 200 mls/hr Piperacillin Sod/Tazobactam Sod (Zosyn 2.25 Gm Iv Premix) 2.25 gm in 50 mls @ 100 mls/hr IVPB Q8H [facility] Last Admin: 06/04/17 05:33 Dose: 100 mls/hr Montelukast Sodium (Singulair) 10 mg PO DAILY [facility] Last Admin: 06/03/17 09:18 Dose: 10 mg Multivitamins (Hexavitamin) 1 tab PO DAILY [facility] Last Admin: 06/04/17 09:32 Dose: 1 tab Nystatin (Nystop Topical Powder) 1 applic TOP TID [facility] Last Admin: 06/03/17 17:14 Dose: 1 pow Pantoprazole Sodium (Protonix Susp) 40 mg NG DAILY [facility] Last Admin: 06/04/17 09:32 Dose: 40 mg Potassium Chloride (Potassium Chloride Oral Soln) 40 meq PO ONCE ONE Stop: 06/04/17 09:35 - Labs Labs: 06/04/17 06:16 06/04/17 06:16 PT 12.4 SECONDS (9.7-12.2) H 06/03/17 17:53 INR 1.1 06/03/17 17:53 APTT 27 SECONDS (21-34) 06/03/17 17:53 - Constitutional Appears: No Acute Distress, Chronically Ill - Head Exam Head Exam: NORMAL INSPECTION - Eye Exam Eye Exam: Normal appearance - ENT Exam Additional comments: et tube - Neck Exam Neck Exam: Normal Inspection - Respiratory Exam Respiratory Exam: Decreased Breath Sounds (mechanical vent sounds) - Cardiovascular Exam Cardiovascular Exam: Tachycardia, RRR - GI/Abdominal Exam GI & Abdominal Exam: Distended, Soft - Extremities Exam Extremities Exam: Pedal Edema (3+) Assessment and Plan (1) CEZAR (acute kidney injury) Status: Acute (2) Acute respiratory failure Status: Acute (3) Atrial fibrillation, new onset Status: Acute (4) COPD exacerbation Status: Acute (5) Change in mental state Status: Acute (6) Elevated WBCs Status: Acute - Assessment and Plan (Free Text) Assessment: maintain antibiotics for pneumonia / sepsis hd tomorrow iv iron, gil. replace potassium - per icu team. 4K bath w/ hd tomorrow
[2017-06-04] MEDS: Linezolid 600 mg in D5W 300 ml 600 MG/300 ML BAG IVPB SCH ×2 (09:46→21:03)
[2017-06-04] MEDS: Dorzolamide 2% Opht Sol 10ml OU SCH ×3 (10:00→17:41)
[2017-06-04 13:22] LABS: FDP INTERPRETATION POSITIVE (NEGATIVE)
[2017-06-04 13:23] LABS: FDP QUANTITY >10<40 ug/mL (<10)
--- NOTE | 2017-06-04 13:23 | CP.PCM.PN ---
Subjective - Date & Time of Evaluation Date of Evaluation: 06/04/17 Time of Evaluation: 13:00 - Subjective Subjective: Patient was seen and examined by me. Patient remains intubated at this time. Currently on pressure support CPAP settings. The patient is awake, she is able to look at me when name called and during exam. Hgb today is 7.6, the urine output was recorded as 390 Objective - Vital Signs/Intake and Output Vital Signs (last 24 hours): Temp Pulse Resp BP Pulse Ox 99 F 82 21 146/59 L 100 06/04/17 12:00 06/04/17 13:00 06/04/17 13:00 06/04/17 13:00 06/04/17 13:00 Intake and Output: 06/04/17 06/04/17 06:59 18:59 Intake Total 620 350 Output Total 130 20 Balance 490 330 - Medications Medications: Current Medications Acetylcysteine (Acetylcysteine 20%) 4 ml INH RQ6 [facility] Last Admin: 06/04/17 08:07 Dose: 4 ml Albuterol/Ipratropium (Duoneb 3 Mg/0.5 Mg (3 Ml) Ud) 3 ml INH RQ6 [facility] Last Admin: 06/04/17 08:07 Dose: 3 ml Calcium Acetate (Phoslo) 667 mg PO TIDCC [facility] Last Admin: 06/04/17 08:02 Dose: 667 mg Diltiazem HCl (Cardizem) 30 mg PO Q6H [facility] Last Admin: 06/04/17 05:33 Dose: 30 mg Dorzolamide HCl (Trusopt) 10 ml OU TID [facility] Last Admin: 06/03/17 17:14 Dose: 1 drop Epoetin Ken (Procrit) 10,000 unit IV MWF [facility] Ferric Sodium Gluconate Complex (Ferrlecit) 125 mg IVPB DAILY [facility] Stop: 06/11/17 14:01 Last Admin: 06/04/17 09:32 Dose: 125 mg Norepinephrine Bitartrate 4 mg (/ Sodium Chloride) 254 mls @ 15.24 mls/hr IV .[id number] PRN; Protocol; 4 MCG/MIN PRN Reason: TITRATE PER MD ORDER Last Titration: 06/03/17 03:00 Dose: 0 mcg/min, 0 mls/hr Linezolid (Zyvox 600mg/300ml D5w) 600 mg in 300 mls @ 200 mls/hr IVPB Q12 [facility] Last Admin: 06/04/17 09:46 Dose: 200 mls/hr Piperacillin Sod/Tazobactam Sod (Zosyn 2.25 Gm Iv Premix) 2.25 gm in 50 mls @ 100 mls/hr IVPB Q8H [facility] Last Admin: 06/04/17 05:33 Dose: 100 mls/hr Montelukast Sodium (Singulair) 10 mg PO DAILY [facility] Last Admin: 06/04/17 09:45 Dose: 10 mg Multivitamins (Hexavitamin) 1 tab PO DAILY [facility] Last Admin: 06/04/17 09:32 Dose: 1 tab Nystatin (Nystop Topical Powder) 1 applic TOP TID [facility] Last Admin: 06/04/17 09:44 Dose: 1 pow Pantoprazole Sodium (Protonix Susp) 40 mg NG DAILY [facility] Last Admin: 06/04/17 09:32 Dose: 40 mg - Labs Labs: 06/04/17 06:16 06/04/17 06:16 PT 12.4 SECONDS (9.7-12.2) H 06/03/17 17:53 INR 1.1 06/03/17 17:53 APTT 27 SECONDS (21-34) 06/03/17 17:53 - Constitutional Appears: Unkempt, Confused, Chronically Ill - Head Exam Head Exam: NORMAL INSPECTION - ENT Exam Additional comments: Currently intubated - Respiratory Exam Respiratory Exam: Rales, Rhonchi - Cardiovascular Exam Cardiovascular Exam: Irregular Rhythm - GI/Abdominal Exam GI & Abdominal Exam: Soft, Normal Bowel Sounds. absent: Guarding, Rigid, Tenderness - Neurological Exam Neurological Exam: Alert, Altered, Awake Neuro motor strength exam: Left Upper Extremity: 4, Right Upper Extremity: 4 - Skin Skin Exam: Pallor, Pallor Assessment and Plan - Assessment and Plan (Free Text) Assessment: (1) Acute respiratory failure with hypoxia and hypercapnia 06/04: currently on CPAP settings 06/03: Remains intubated. Now off pressor medications. Had 1.5 L removed yesterday 06/02: Remains intubated, on IV pressor medications. Blood pressure better now. There are plans for HD to see if this can help remove fluid from lungs 06/01 Now re-intubated after patient became hypoxcic 05/30: Currently on weaning trial. 05/29: Currently patient remains on mechanical ventilator. Review of the blood gases show no longer acidemic or CO2 retaining. Hopefully can be weaned soon. Likey complications from CO2 and CHF as well as pneumonia. (2) Pneumonia - questionable area on the right lower lobe seen on CT done on 06/04: Decrease WBC today, 21 06/03: The WBC decreased to 25, Continued on Zyvox and Zosyn 06/02: Signifigtanly elevated WBC. Now changed to Zyvox and Zosyn IV 05/30: WBC is only decreased slightly. There is still large left shift. Afebrile. IV Zosyn started on 05/26 and IV Vanco started 05/27. 05/29: Remains on IV abx Zosyn and Vancomycin - the WBC is 14. Currently afebrile and also blood and sputum cultures are negative (3) Acute on chronic kidney injury, renal failure has femoral access. 06/04: Urine output yesterday 390 ml 06/03: Yesterday had permacath placed 1.5 L removed 06/02: There are plans for HD to be started (4) COPD exacerbation 05/29: On nebulizers and twice a day solumedrol (5) Atrial fibrillation, new onset 06/04: 06/03: Again anemia Hgb now 6.9. Has had a total of 3 units of PRBC, lovenox on hold, positive occult 06/02: Because of the anemia has been off lovenox. 05/30: HR has been in the 90s atrial fibrillation. Rate controlled now. Continue Cardizem by mouth for rate control. Patient is on therapeutic anticoagulation with Lovenox as there is a high CHADs score (6) CHF (congestive heart failure) 05/29: Continue following CXRAYs, urine ins and outs. Patient is getting lasix BID and also is on vasotech. (7) History of hyperlipidemia
[2017-06-04 13:50] LABS: FIBRINOGEN 655 mg/dL (200-400)
--- NOTE | 2017-06-04 18:58 | CP.PCM.PN ---
Subjective - Date & Time of Evaluation Date of Evaluation: 06/04/17 Time of Evaluation: 02:15 - Subjective Subjective: dictated Objective - Vital Signs/Intake and Output Vital Signs (last 24 hours): Temp Pulse Resp BP Pulse Ox 99 F 90 22 121/48 L 100 06/04/17 16:00 06/04/17 18:00 06/04/17 18:00 06/04/17 18:00 06/04/17 18:00 Intake and Output: 06/04/17 06/04/17 06:59 18:59 Intake Total 620 700 Output Total 130 20 Balance 490 680 - Medications Medications: Current Medications Acetylcysteine (Acetylcysteine 20%) 4 ml INH RQ6 [facility] Last Admin: 06/04/17 14:08 Dose: 4 ml Albuterol/Ipratropium (Duoneb 3 Mg/0.5 Mg (3 Ml) Ud) 3 ml INH RQ6 [facility] Last Admin: 06/04/17 14:08 Dose: 3 ml Calcium Acetate (Phoslo) 667 mg PO TIDCC [facility] Last Admin: 06/04/17 17:42 Dose: 667 mg Diltiazem HCl (Cardizem) 30 mg PO Q6H [facility] Last Admin: 06/04/17 17:42 Dose: 30 mg Dorzolamide HCl (Trusopt) 10 ml OU TID [facility] Last Admin: 06/04/17 17:41 Dose: 1 drop Epoetin Ken (Procrit) 10,000 unit IV MWF [facility] Ferric Sodium Gluconate Complex (Ferrlecit) 125 mg IVPB DAILY [facility] Stop: 06/11/17 14:01 Last Admin: 06/04/17 09:32 Dose: 125 mg Norepinephrine Bitartrate 4 mg (/ Sodium Chloride) 254 mls @ 15.24 mls/hr IV .[id number] PRN; Protocol; 4 MCG/MIN PRN Reason: TITRATE PER MD ORDER Last Titration: 06/03/17 03:00 Dose: 0 mcg/min, 0 mls/hr Linezolid (Zyvox 600mg/300ml D5w) 600 mg in 300 mls @ 200 mls/hr IVPB Q12 [facility] Last Admin: 06/04/17 09:46 Dose: 200 mls/hr Piperacillin Sod/Tazobactam Sod (Zosyn 2.25 Gm Iv Premix) 2.25 gm in 50 mls @ 100 mls/hr IVPB Q8H [facility] Last Admin: 06/04/17 13:35 Dose: 100 mls/hr Montelukast Sodium (Singulair) 10 mg PO DAILY [facility] Last Admin: 06/04/17 09:45 Dose: 10 mg Multivitamins (Hexavitamin) 1 tab PO DAILY [facility] Last Admin: 06/04/17 09:32 Dose: 1 tab Nystatin (Nystop Topical Powder) 1 applic TOP TID [facility] Last Admin: 06/04/17 17:42 Dose: 1 pow Pantoprazole Sodium (Protonix Susp) 40 mg NG DAILY [facility] Last Admin: 06/04/17 09:32 Dose: 40 mg - Labs Labs: 06/04/17 06:16 06/04/17 06:16 PT 12.4 SECONDS (9.7-12.2) H 06/03/17 17:53 INR 1.1 06/03/17 17:53 APTT 27 SECONDS (21-34) 06/03/17 17:53
--- NOTE | 2017-06-04 23:25 | PN ---
DATE: SUBJECTIVE: The patient remains intubated. PHYSICAL EXAMINATION VITAL SIGNS: Her temperature 98.6 today, her pulse was 78, respirations 19, blood pressure 129/62, and when I went in it was 133/41. She is opening her eyes, but remains intubated and sedated. NECK: Supple. LUNGS: Clear. Occasional wheeze. HEART: S1 and S2 is regular. ABDOMEN: Soft and nontender. No guarding. No rigidity present. EXTREMITIES: Extremities have edema. She has ecchymosis on both extremities. She remains on IV antibiotics. LABORATORY DATA: Labs are noted. Lab shows white count is 21 today, hemoglobin 7.6, hematocrit 28.2, platelet count is 115 and is decreasing, and neutrophils are 17.7 fibrinogen is 665, fibrin split products and degradation products are positive, so she is probably is DIC. Her creatinine is 2.7. She got dialysis . She is being followed by renal attending. Potassium 3.1. AST and ALT remain high. Serology show C. difficile is negative. Hepatitis is negative. Legionella and Mycoplasma are negative. MEDICATIONS: She is on Zyvox and Zosyn. She remains on Levophed, it seems. ASSESSMENT AND PLAN: So at this time, we will continue present antibiotics and we will monitor, and the patient has acute respiratory failure and remains with renal insufficiency at this time and with CHF, pneumonia. She did have high procalcitonin level. She has ecchymosis, severe anemia, and we will follow. Hellen Ospina MD
[2017-06-05] MEDS: Acetylcysteine 20% Inhal Soln (4ml) INH SCH ×4 (01:46→21:10)
[2017-06-05] MEDS: Albuterol-Ipratrop 3 mg / 0.5 (3 ml) UD INH SCH ×4 (01:46→21:10)
[2017-06-05] MEDS: Piperacill/Tazo 2.25gm in Dex 2.25 GM/50 ML BAG IVPB SCH ×3 (05:33→22:33)
[2017-06-05 06:20] LABS: ABG ALLEN TEST POS; ABG MECHANICAL RATE 20; ARTERIAL BLOOD GAS MODE PRVC; ARTERIAL BLOOD HGB O2 SAT 96.8 % (95.0-98.0); ATERIAL BLOOD GAS PEEP 5; CARBOXYHEMOGLOBIN 2.2 % (0.5-1.5); DRAW SITE RR
[2017-06-05 06:35] LABS: BASO # 0.1 K/uL (0.0-0.2); BASO % 0.5 % (0.0-2.0); EOS # 0.3 K/uL (0.0-0.7); EOS % 1.4 % (0.0-4.0); LYMPH # 1.3 K/uL (1.0-4.3); MEAN CELL VOLUME 87.3 fL (81.0-99.0); MEAN CORPUSCULAR HEMOGLOBIN 28.8 pg (27.0-31.0); MEAN PLATELET VOLUME 9.3 fL (7.2-11.7); MONO # 0.9 K/uL (0.0-0.8); MONO % 5.1 % (0.0-10.0); NRBC % 0.6 % (0.0-2.0); PLATELET COUNT 118 K/uL (130-400); RED CELL DISTRIBUTION WIDTH 16.2 % (11.5-14.5); WHITE BLOOD COUNT 17.9 K/uL (4.8-10.8)
[2017-06-05 06:47] LABS: ALB/GLOB RATIO 1.2 (1.0-2.1); BILIRUBIN,TOTAL 1.4 mg/dL (0.2-1.3); CALCIUM 8.6 mg/dl (8.6-10.4); MAGNESIUM 2.4 mg/dL (1.6-2.3); PHOSPHOROUS 5.3 mg/dL (2.5-4.5); POTASSIUM 3.2 mmol/L (3.6-5.2); TOTAL PROTEIN 4.9 g/dL (6.3-8.3)
[2017-06-05] MEDS ORDERED: Potassium Chloride 20 mEq/15 ml LIQ UD PO ONE (08:00)
[2017-06-05 08:14] LABS: EOSINOPHIL 4 % (0-4); NEUTROPHIL 82 % (50-75); NUCLEATED RED BLOOD CELL 1 % (0-0); TOTAL CELLS COUNTED 100
--- NOTE | 2017-06-05 08:14 | RAD ---
Chest x-ray single frontal view History: Intubated. Comparison: 06/04/2017 Findings: Lines and tubes are in stable position. Prominent diffuse increased interstitial lung markings suggestive for moderate venous congestion with bibasilar airspace opacities. Bilateral hilar prominence. Small bilateral pleural effusions; left greater than right. Cardiomegaly. Degenerative changes in the spine and shoulders. Impression: Lines and tubes are in stable position. Prominent diffuse increased interstitial lung markings suggestive for moderate venous congestion with bibasilar airspace opacities. Bilateral hilar prominence. Small bilateral pleural effusions; left greater than right. Cardiomegaly.
[2017-06-05 08:16] LABS: LARGE PLATELETS PRESENT
--- NOTE | 2017-06-05 08:23 | CP.CCUPN ---
<ZarinaChip R - Last Filed: 06/05/17 15:13> CCU Subjective - Physician Review Subjective (Free Text): Patient seen and examined at bedside. Patient is intubated and sedated. Patient was re-intubated yesterday. She alert, easily arousable and responds to verbal stimuli. Per nursing staff, she continues to have loose bowel movements; C. diff toxin negative. She admits to pain at the areas of ecchymosis. Full ROS not obtained due to current status. Case discussed with house-staff; medical records and chart reviewed and labs discussed. 06/05/17 13:46 CCU Objective - Vital Signs / Intake & Output Vital Signs (Last 4 hours): Vital Signs Temp Pulse Resp BP Pulse Ox 06/05/17 07:45 98.7 F 06/05/17 07:05 77 20 140/54 L 100 06/05/17 07:00 72 20 100 06/05/17 06:50 71 21 135/54 L 100 06/05/17 06:35 68 20 125/48 L 100 06/05/17 06:20 73 20 129/55 L 100 06/05/17 06:04 86 12 132/68 100 06/05/17 06:00 73 21 94 L 06/05/17 05:50 70 20 120/54 L 100 06/05/17 05:35 72 20 124/55 L 100 06/05/17 05:20 73 20 128/48 L 100 06/05/17 05:04 76 20 131/52 L 100 06/05/17 05:00 77 20 100 06/05/17 04:51 65 20 126/57 L 100 06/05/17 04:35 72 20 134/51 L 100 Intake and Output (Last 8hrs): Intake & Output 06/04/17 06/05/17 06/05/17 22:59 06:59 14:59 Intake Total 240 670 40 Output Total 125 160 10 Balance 115 510 30 Weight 257 lb Intake: Intake, IV Amount 400 Right Distal Port 400 Internal Jugular Tube Feeding 240 270 40 Output: Urine 125 160 10 Urethral (Saenz) 125 160 10 Other: # Bowel Movements 1 - Physical Exam Head: Positive for: Atraumatic, Normocephalic Pupils: Positive for: PERRL Extroacular Muscles: Positive for: EOMI Mouth: Positive for: Moist Mucous Membranes Respiratory/Chest: Positive for: Decreased Breath Sounds (at bases) Cardiovascular: Positive for: Regular Rate and Rhythm, Normal S1, S2 Abdomen: Positive for: Normal Bowel Sounds. Negative for: Tenderness Breast/Axillary: Positive for: Discoloration (ecchymosis left lower breast) Upper Extremity: Positive for: Edema, Swelling, Other (ecchymosis b/l; faint pulses bilaterally) Lower Extremity: Positive for: NORMAL PULSES Neurological: Positive for: GCS=15, Other (follows commands) Skin: Positive for: Other (Ecchymosis on bilateral upper extremities and left lower breast area) Psychiatric: Positive for: Alert - Medications Active Medications: Active Medications Generic Name Dose Route Start Last Admin Trade Name Freq PRN Reason Stop Dose Admin Acetylcysteine 4 ml 05/25/17 09:15 06/05/17 08:13 Acetylcysteine 20% INH 4 ml RQ6 ALISA Administration Albuterol/Ipratropium 3 ml 05/28/17 18:45 06/05/17 08:13 Duoneb 3 Mg/0.5 Mg (3 Ml) Ud INH 3 ml RQ6 ALISA Administration Calcium Acetate 667 mg 06/01/17 17:00 06/04/17 17:42 Phoslo PO 667 mg TIDCC ALISA Administration Diltiazem HCl 30 mg 05/26/17 12:00 06/05/17 05:00 Cardizem PO 30 mg Q6H ALISA Administration Dorzolamide HCl 10 ml 05/22/17 18:00 06/04/17 17:41 Trusopt OU 1 drop TID ALISA Administration Epoetin Ken 10,000 unit 06/05/17 09:00 Procrit IV MWF ALISA Ferric Sodium Gluconate Complex 125 mg 06/03/17 14:00 06/04/17 09:32 Ferrlecit IVPB 06/11/17 14:01 125 mg DAILY ALISA Administration Norepinephrine Bitartrate 4 mg 254 mls @ 15.24 mls/hr 06/01/17 12:50 03:00 / Sodium Chloride IV 0 mcg/min .[id number] PRN 0 mls/hr TITRATE PER MD ORDER Titration Protocol 4 MCG/MIN Linezolid 600 mg in 300 mls @ 200 mls/hr 06/01/17 22:00 06/04/17 21:03 Zyvox 600mg/300ml D5w IVPB 200 mls/hr Q12 ALISA Administration Piperacillin Sod/Tazobactam Sod 2.25 gm in 50 mls @ 100 mls/hr 06/02/17 14:30 06/05/17 05:33 Zosyn 2.25 Gm Iv Premix IVPB 100 mls/hr Q8H ALISA Administration Montelukast Sodium 10 mg 05/23/17 10:00 06/04/17 09:45 Singulair PO 10 mg DAILY ALISA Administration Multivitamins 1 tab 05/22/17 13:45 06/04/17 09:32 Hexavitamin PO 1 tab DAILY ALISA Administration Nystatin 1 applic 05/27/17 10:30 06/04/17 17:42 Nystop Topical Powder TOP 1 pow TID ALISA Administration Pantoprazole Sodium 40 mg 05/23/17 10:00 06/04/17 09:32 Protonix Susp NG 40 mg DAILY ALISA Administration - Patient Studies Lab Studies: Microbiology Studies 06/02/17 22:59 Gram Stain - Preliminary Sputum Sputum Culture - Preliminary No growth. Lab Studies 06/05/17 06/05/17 06/05/17 Range/Units 07:17 06:26 06:26 WBC 17.9 H (4.8-10.8) K/uL RBC 2.52 L (3.80-5.20) Mil/uL Hgb 7.3 L (11.0-16.0) g/dL Hct 22.0 L (34.0-47.0) % MCV 87.3 D (81.0-99.0) fL MCH 28.8 (27.0-31.0) pg MCHC 33.0 (33.0-37.0) g/dL RDW 16.2 H (11.5-14.5) % Plt Count 118 L (130-400) K/uL MPV 9.3 (7.2-11.7) fL Neut % (Auto) 86.0 H (50.0-75.0) % Lymph % (Auto) 7.0 L (20.0-40.0) % Vigo % (Auto) 5.1 (0.0-10.0) % Eos % (Auto) 1.4 (0.0-4.0) % Baso % (Auto) 0.5 (0.0-2.0) % Neut # 15.4 H (1.8-7.0) K/uL Lymph # 1.3 (1.0-4.3) K/uL Vigo # 0.9 H (0.0-0.8) K/uL Eos # 0.3 (0.0-0.7) K/uL Baso # 0.1 (0.0-0.2) K/uL Neutrophils % (Manual) 82 H (50-75) % Lymphocytes % (Manual) 9 L (20-40) % Monocytes % (Manual) 5 (0-10) % Eosinophils % (Manual) 4 (0-4) % Nucleated RBC % 1 H (0-0) % Toxic Granulation Present Platelet Estimate Slightly decreased L (NORMAL) Large Platelets Present Polychromasia Slight Hypochromasia (manual) Moderate Poikilocytosis (manual Slight Anisocytosis (manual) Slight Microcytosis (manual) Slight Macrocytosis (manual) Slight Target Cells Slight Tear Drop Cells Slight Ovalocytes Slight Hester-Mackey Bodies Slight Gilman Cells Slight Fibrinogen (200-400) mg/dL Fibrin Degrad Products (NEGATIVE) Fibrin Degrad Prod, Qt (<10) ug/mL Puncture Site pCO2 (35-45) mm/Hg pO2 (80-100) mm/Hg HCO3 (21-28) mmol/L ABG pH (7.35-7.45) ABG Total CO2 (22-28) mmol/L ABG O2 Saturation (95-98) % ABG Base Excess (-2.0-3.0) mmol/L ABG Hemoglobin (11.7-17.4) g/dL ABG Carboxyhemoglobin (0.5-1.5) % POC ABG HHb (Measured) (0.0-5.0) % ABG Methemoglobin (0.0-3.0) % Sj Test A-a O2 Difference mm/Hg Respiratory Index Hgb O2 Saturation (95.0-98.0) % Vent Mode Mechanical Rate FiO2 % Tidal Volume PEEP Sodium 136 (132-148) mmol/L Potassium 3.2 L (3.6-5.2) mmol/L Chloride 99 (98-107) mmol/L Carbon Dioxide 27 (22-30) mmol/L Anion Gap 13 (10-20) BUN 62 H (7-17) mg/dL Creatinine 3.7 H (0.7-1.2) MG/DL Est GFR ( Amer) 14 Est GFR (Non-Af Amer) 12 POC Glucose (mg/dL) 126 H (65-110) mg/dL Random Glucose 106 H (65-105) mg/dL Calcium 8.6 (8.6-10.4) mg/dl Phosphorus 5.3 H (2.5-4.5) mg/dL Magnesium 2.4 H (1.6-2.3) mg/dL Total Bilirubin 1.4 H (0.2-1.3) mg/dL AST 133 H (14-36) U/L ALT 73 H (9-52) U/L Alkaline Phosphatase 56 (38-126) U/L Total Protein 4.9 L (6.3-8.3) g/dL Albumin 2.6 L (3.5-5.0) g/dL Globulin 2.2 (2.2-3.9) gm/dL Albumin/Globulin Ratio 1.2 (1.0-2.1) 06/05/17 06/04/17 Range/Units 06:00 12:57 WBC (4.8-10.8) K/uL RBC (3.80-5.20) Mil/uL Hgb (11.0-16.0) g/dL Hct (34.0-47.0) % MCV (81.0-99.0) fL MCH (27.0-31.0) pg MCHC (33.0-37.0) g/dL RDW (11.5-14.5) % Plt Count (130-400) K/uL MPV (7.2-11.7) fL Neut % (Auto) (50.0-75.0) % Lymph % (Auto) (20.0-40.0) % Vigo % (Auto) (0.0-10.0) % Eos % (Auto) (0.0-4.0) % Baso % (Auto) (0.0-2.0) % Neut # (1.8-7.0) K/uL Lymph # (1.0-4.3) K/uL Vigo # (0.0-0.8) K/uL Eos # (0.0-0.7) K/uL Baso # (0.0-0.2) K/uL Neutrophils % (Manual) (50-75) % Lymphocytes % (Manual) (20-40) % Monocytes % (Manual) (0-10) % Eosinophils % (Manual) (0-4) % Nucleated RBC % (0-0) % Toxic Granulation Platelet Estimate (NORMAL) Large Platelets Polychromasia Hypochromasia (manual) Poikilocytosis (manual Anisocytosis (manual) Microcytosis (manual) Macrocytosis (manual) Target Cells Tear Drop Cells Ovalocytes Hester-Mackey Bodies Gilman Cells Fibrinogen 655 H (200-400) mg/dL Fibrin Degrad Products Positive H (NEGATIVE) Fibrin Degrad Prod, Qt >10<40 H (<10) ug/mL Puncture Site Rr pCO2 41 (35-45) mm/Hg pO2 185 H (80-100) mm/Hg HCO3 26.4 (21-28) mmol/L ABG pH 7.42 (7.35-7.45) ABG Total CO2 27.9 (22-28) mmol/L ABG O2 Saturation 100.0 H (95-98) % ABG Base Excess 1.9 (-2.0-3.0) mmol/L ABG Hemoglobin 11.4 L (11.7-17.4) g/dL ABG Carboxyhemoglobin 2.2 H (0.5-1.5) % POC ABG HHb (Measured) 0.0 (0.0-5.0) % ABG Methemoglobin 1.0 (0.0-3.0) % Sj Test Pos A-a O2 Difference 120.0 mm/Hg Respiratory Index 0.6 Hgb O2 Saturation 96.8 (95.0-98.0) % Vent Mode Prvc Mechanical Rate 20 FiO2 50.0 % Tidal Volume 500 PEEP 5 Sodium (132-148) mmol/L Potassium (3.6-5.2) mmol/L Chloride (98-107) mmol/L Carbon Dioxide (22-30) mmol/L Anion Gap (10-20) BUN (7-17) mg/dL Creatinine (0.7-1.2) MG/DL Est GFR ( Amer) Est GFR (Non-Af Amer) POC Glucose (mg/dL) (65-110) mg/dL Random Glucose (65-105) mg/dL Calcium (8.6-10.4) mg/dl Phosphorus (2.5-4.5) mg/dL Magnesium (1.6-2.3) mg/dL Total Bilirubin (0.2-1.3) mg/dL AST (14-36) U/L ALT (9-52) U/L Alkaline Phosphatase (38-126) U/L Total Protein (6.3-8.3) g/dL Albumin (3.5-5.0) g/dL Globulin (2.2-3.9) gm/dL Albumin/Globulin Ratio (1.0-2.1) Laboratory Results - last 24 hr 06/04/17 06/05/17 06/05/17 12:57 06:00 06:26 WBC 17.9 H RBC 2.52 L Hgb 7.3 L Hct 22.0 L MCV 87.3 D MCH 28.8 MCHC 33.0 RDW 16.2 H Plt Count 118 L MPV 9.3 Neut % (Auto) 86.0 H Lymph % (Auto) 7.0 L [place] % (Auto) 5.1 Eos % (Auto) 1.4 Baso % (Auto) 0.5 Neut # 15.4 H Lymph # 1.3 Vigo # 0.9 H Eos # 0.3 Baso # 0.1 Neutrophils % (Manual) 82 H Lymphocytes % (Manual) 9 L Monocytes % (Manual) 5 Eosinophils % (Manual) 4 Nucleated RBC % 1 H Toxic Granulation Present Platelet Estimate Slightly decreased L Large Platelets Present Polychromasia Slight Hypochromasia (manual) Moderate Poikilocytosis (manual Slight Anisocytosis (manual) Slight Microcytosis (manual) Slight Macrocytosis (manual) Slight Target Cells Slight Tear Drop Cells Slight Ovalocytes Slight Hester-Mackey Bodies Slight Gilman Cells Slight Fibrinogen 655 H Fibrin Degrad Products Positive H Fibrin Degrad Prod, Qt >10<40 H Puncture Site Rr pCO2 41 pO2 185 H HCO3 26.4 ABG pH 7.42 ABG Total CO2 27.9 ABG O2 Saturation 100.0 H ABG Base Excess 1.9 ABG Hemoglobin 11.4 L ABG Carboxyhemoglobin 2.2 H POC ABG HHb (Measured) 0.0 ABG Methemoglobin 1.0 Sj Test Pos A-a O2 Difference 120.0 Respiratory Index 0.6 Hgb O2 Saturation 96.8 Vent Mode Prvc Mechanical Rate 20 FiO2 50.0 Tidal Volume 500 PEEP 5 Sodium Potassium Chloride Carbon Dioxide Anion Gap BUN Creatinine Est GFR ( Amer) Est GFR (Non-Af Amer) POC Glucose (mg/dL) Random Glucose Calcium Phosphorus Magnesium Total Bilirubin AST ALT Alkaline Phosphatase Total Protein Albumin Globulin Albumin/Globulin Ratio 06/05/17 06/05/17 06:26 07:17 WBC RBC Hgb Hct MCV MCH MCHC RDW Plt Count MPV Neut % (Auto) Lymph % (Auto) Vigo % (Auto) Eos % (Auto) Baso % (Auto) Neut # Lymph # Vigo # Eos # Baso # Neutrophils % (Manual) Lymphocytes % (Manual) Monocytes % (Manual) Eosinophils % (Manual) Nucleated RBC % Toxic Granulation Platelet Estimate Large Platelets Polychromasia Hypochromasia (manual) Poikilocytosis (manual Anisocytosis (manual) Microcytosis (manual) Macrocytosis (manual) Target Cells Tear Drop Cells Ovalocytes Hester-Mackey Bodies Lissett Cells Fibrinogen Fibrin Degrad Products Fibrin Degrad Prod, Qt Puncture Site pCO2 pO2 HCO3 ABG pH ABG Total CO2 ABG O2 Saturation ABG Base Excess ABG Hemoglobin ABG Carboxyhemoglobin POC ABG HHb (Measured) ABG Methemoglobin Sj Test A-a O2 Difference Respiratory Index Hgb O2 Saturation Vent Mode Mechanical Rate FiO2 Tidal Volume PEEP Sodium 136 Potassium 3.2 L Chloride 99 Carbon Dioxide 27 Anion Gap 13 BUN 62 H Creatinine 3.7 H Est GFR ( Amer) 14 Est GFR (Non-Af Amer) 12 POC Glucose (mg/dL) 126 H Random Glucose 106 H Calcium 8.6 Phosphorus 5.3 H Magnesium 2.4 H Total Bilirubin 1.4 H AST 133 H ALT 73 H Alkaline Phosphatase 56 Total Protein 4.9 L Albumin 2.6 L Globulin 2.2 Albumin/Globulin Ratio 1.2 Review of Systems - Review of Systems Systems not reviewed;Unavailable: Intubated - EENT Eyes: UNREMARKABLE Ears: UNREMARKABLE Nose/Mouth/Throat: UNREMARKABLE - Cardiovascular Cardiovascular: UNREMARKABLE - Respiratory Respiratory: UNREMARKABLE - Gastrointestinal Gastrointestinal: UNREMARKABLE - Genitourinary Genitourinary: UNREMARKABLE - Integumentary Integumentary: Other (Ecchymosis in bilateral arms and left breast) - Neurological Neurological: UNREMARKABLE Critical Care Progress Note - Vent Settings TIDAL VOLUME:: 500 RESP RATE:: 20 FIO2:: 50 PEEP:: 5 - Extremities/Vascular Does the Patient have a Central Venous Catheter?: Yes Does the Patient have a Saenz Catheter?: Yes Catheter Insertion Criteria: Need for accurate measurement of output in critically ill patient Assessment/Plan (1) Respiratory acidosis Current Visit: Yes Status: Acute (2) COPD exacerbation Current Visit: Yes Status: Acute (3) Elevated troponin Current Visit: Yes Status: Acute (4) Atrial fibrillation, new onset Current Visit: Yes Status: Acute (5) Cardiomegaly Current Visit: Yes Status: Acute (6) Elevated WBCs Current Visit: Yes Status: Acute (7) Abnormal RBC indices Current Visit: Yes Status: Acute (8) History of hypertension Current Visit: Yes Status: Acute (9) History of hyperlipidemia Current Visit: Yes Status: Acute (10) Change in mental state Current Visit: Yes Status: Acute (11) History of dementia Current Visit: Yes Status: Acute (12) History of gastroesophageal reflux (GERD) Current Visit: Yes Status: Acute (13) History of glaucoma Current Visit: Yes Status: Acute (14) Prophylactic measure Current Visit: Yes Status: Acute - Assessment and Plan (Free Text) Assessment: 76 year old female with PMHx of COPD, AFib, Asthma, HTN, Cardiomegaly with Diastolic Heart Failure, Dementia presenting with acute respiratory failure likely secondary COPD exacerbation, resulting in intubation (05/22). Extubated and Re-intubated on 06/01. Today 06/05/2017: Hemodialysis today. Trial of ventilation pressure support today. Pulm: Acute respiratory failure secondary to pulmonary edema - Re-intubated 06/01 on CPAP; Trial of ventilation pressure support today. - 06/01 CXR: Prominent patchy increased markings at both lung bases; left greater than right suggestive for infiltrate and or atelectasis. Suggestion of a small left and or trace right pleural effusion. - f/u daily ABGs - Mucomyst 4 ml RQ6 - DuoNeb 3 ml RQ6 - Singulair 10 mg PO daily GI: NPO; Stool occult blood positive - Drop in Hgb, Stool occult blood: Positive - 06/01 C. diff toxin negative CV: Mildly hypotensive, Acute on chronic decompensated diastolic heart failure - A. fib rate controlled with Cardizem 30 mg PO daily ID: Candidal rash bilateral breast - Nystatin powder for rash underneath breasts b/l - sputum culture: yeast positive, scant growth Heme: Stool occult blood positive - Bilateral ecchymosis in upper extremities with edema now extending into trunk. - Stopped all anti-platelet medications ASA and Lovenox due to anemia - transfused with 2 units of pRBC 06/01, 1 unit pRBC 06/02, 2 units 06/03 - 05/31 venous duplex scan of bilaterally upper extremities: Right - no abnormal findings. Left - not done due to swelling. Renal: elevated BUN: Cr, urine output decreased today - Nephro consulted, will f/u reccs - HD on MWF schedule - will continue to monitor, hold enalapril - per nephro d/c ACEi and Lasix Endo: No acute issues Neuro: Alert and responsive to verbal stimuli DVT proph - SCD, hold Lovenox GI proph - Protonix 40 mg Saenz for strict I/O's during acute illness Multivitamins Code status - full code <Albert Tellez - Last Filed: 06/05/17 16:58> CCU Objective - Vital Signs / Intake & Output Vital Signs (Last 4 hours): Vital Signs Temp Pulse Pulse Resp BP BP Pulse Ox 06/05/17 16:00 91 H 25 H 100 06/05/17 15:27 98.4 F 06/05/17 15:00 83 20 100 06/05/17 14:25 86 21 139/50 L 97 06/05/17 14:08 84 22 146/56 L 100 06/05/17 14:00 75 26 H 100 06/05/17 13:53 80 19 136/72 100 06/05/17 13:38 81 26 H 145/67 100 06/05/17 13:30 82 19 146/58 L 100 06/05/17 13:23 85 20 146/58 L 100 06/05/17 13:08 91 H 20 145/62 100 06/05/17 13:00 84 83 26 H 129/59 L 100 Intake and Output (Last 8hrs): Intake & Output 06/05/17 06/05/17 06/05/17 06:59 14:59 22:59 Intake Total 670 370 290 Output Total 160 90 35 Balance 510 280 255 Weight 257 lb Intake: Intake, IV Amount 400 50 250 Right Distal Port 400 50 250 Internal Jugular Tube Feeding 270 320 40 Output: Urine 160 90 35 Urethral (Saenz) 160 90 35 Other: # Bowel Movements 1 1 0 - Medications Active Medications: Active Medications Generic Name Dose Route Start Last Admin Trade Name Ovidioq PRN Reason Stop Dose Admin Acetylcysteine 4 ml 05/25/17 09:15 06/05/17 13:44 Acetylcysteine 20% INH 4 ml RQ6 ALISA Administration Albuterol/Ipratropium 3 ml 05/28/17 18:45 06/05/17 13:44 Duoneb 3 Mg/0.5 Mg (3 Ml) Ud INH 3 ml RQ6 ALISA Administration Calcium Acetate 667 mg 06/01/17 17:00 06/05/17 14:59 Phoslo PO Not Given TIDCC ALISA Diltiazem HCl 30 mg 05/26/17 12:00 06/05/17 14:59 Cardizem PO Not Given Q6H ALISA Dorzolamide HCl 10 ml 05/22/17 18:00 06/05/17 15:20 Trusopt OU 1 drop TID ALISA Administration Epoetin Ken 10,000 unit 06/05/17 09:00 06/05/17 12:00 Procrit IV 10,000 unit MWF ALISA Administration Ferric Sodium Gluconate Complex 125 mg 06/03/17 14:00 06/05/17 14:59 Ferrlecit IVPB 06/11/17 14:01 Not Given DAILY ALISA Linezolid 600 mg in 300 mls @ 200 mls/hr 06/01/17 22:00 06/05/17 15:22 Zyvox 600mg/300ml D5w IVPB 06/06/17 10:00 200 mls/hr Q12 ALISA Administration Piperacillin Sod/Tazobactam Sod 2.25 gm in 50 mls @ 100 mls/hr 06/02/17 14:30 06/05/17 15:19 Zosyn 2.25 Gm Iv Premix IVPB 06/06/17 10:00 100 mls/hr Q8H ALISA Administration Montelukast Sodium 10 mg 05/23/17 10:00 06/05/17 09:02 Singulair PO 10 mg DAILY ALISA Administration Multivitamins 1 tab 05/22/17 13:45 06/05/17 09:02 Hexavitamin PO 1 tab DAILY ALISA Administration Nystatin 1 applic 05/27/17 10:30 06/05/17 15:21 Nystop Topical Powder TOP 1 pow TID ALISA Administration Pantoprazole Sodium 40 mg 05/23/17 10:00 06/05/17 09:02 Protonix Susp NG 40 mg DAILY ALISA Administration - Patient Studies Lab Studies: Microbiology Studies 06/02/17 22:59 Gram Stain - Final Sputum Sputum Culture - Final Yeast Species Lab Studies 06/05/17 06/05/17 06/05/17 Range/Units 08:31 07:17 06:26 WBC (4.8-10.8) K/uL RBC (3.80-5.20) Mil/uL Hgb (11.0-16.0) g/dL Hct (34.0-47.0) % MCV (81.0-99.0) fL MCH (27.0-31.0) pg MCHC (33.0-37.0) g/dL RDW (11.5-14.5) % Plt Count (130-400) K/uL MPV (7.2-11.7) fL Neut % (Auto) (50.0-75.0) % Lymph % (Auto) (20.0-40.0) % [place] % (Auto) (0.0-10.0) % Eos % (Auto) (0.0-4.0) % Baso % (Auto) (0.0-2.0) % Neut # (1.8-7.0) K/uL Lymph # (1.0-4.3) K/uL [place] # (0.0-0.8) K/uL Eos # (0.0-0.7) K/uL Baso # (0.0-0.2) K/uL Neutrophils % (Manual) (50-75) % Lymphocytes % (Manual) (20-40) % Monocytes % (Manual) (0-10) % Eosinophils % (Manual) (0-4) % Nucleated RBC % (0-0) % Toxic Granulation Platelet Estimate (NORMAL) Large Platelets Polychromasia Hypochromasia (manual) Poikilocytosis (manual Anisocytosis (manual) Microcytosis (manual) Macrocytosis (manual) Target Cells Tear Drop Cells Ovalocytes Hester-Mackey Bodies Gilman Cells Puncture Site pCO2 (35-45) mm/Hg pO2 (80-100) mm/Hg HCO3 (21-28) mmol/L ABG pH (7.35-7.45) ABG Total CO2 (22-28) mmol/L ABG O2 Saturation (95-98) % ABG Base Excess (-2.0-3.0) mmol/L ABG Hemoglobin (11.7-17.4) g/dL ABG Carboxyhemoglobin (0.5-1.5) % POC ABG HHb (Measured) (0.0-5.0) % ABG Methemoglobin (0.0-3.0) % Sj Test A-a O2 Difference mm/Hg Respiratory Index Hgb O2 Saturation (95.0-98.0) % Vent Mode Mechanical Rate FiO2 % Tidal Volume PEEP Sodium 136 (132-148) mmol/L Potassium 3.2 L (3.6-5.2) mmol/L Chloride 99 (98-107) mmol/L Carbon Dioxide 27 (22-30) mmol/L Anion Gap 13 (10-20) BUN 62 H (7-17) mg/dL Creatinine 3.7 H (0.7-1.2) MG/DL Est GFR ( Amer) 14 Est GFR (Non-Af Amer) 12 POC Glucose (mg/dL) 147 H 126 H (65-110) mg/dL Random Glucose 106 H (65-105) mg/dL Calcium 8.6 (8.6-10.4) mg/dl Phosphorus 5.3 H (2.5-4.5) mg/dL Magnesium 2.4 H (1.6-2.3) mg/dL Total Bilirubin 1.4 H (0.2-1.3) mg/dL AST 133 H (14-36) U/L ALT 73 H (9-52) U/L Alkaline Phosphatase 56 (38-126) U/L Total Protein 4.9 L (6.3-8.3) g/dL Albumin 2.6 L (3.5-5.0) g/dL Globulin 2.2 (2.2-3.9) gm/dL Albumin/Globulin Ratio 1.2 (1.0-2.1) 06/05/17 06/05/17 Range/Units 06:26 06:00 WBC 17.9 H (4.8-10.8) K/uL RBC 2.52 L (3.80-5.20) Mil/uL Hgb 7.3 L (11.0-16.0) g/dL Hct 22.0 L (34.0-47.0) % MCV 87.3 D (81.0-99.0) fL MCH 28.8 (27.0-31.0) pg MCHC 33.0 (33.0-37.0) g/dL RDW 16.2 H (11.5-14.5) % Plt Count 118 L (130-400) K/uL MPV 9.3 (7.2-11.7) fL Neut % (Auto) 86.0 H (50.0-75.0) % Lymph % (Auto) 7.0 L (20.0-40.0) % [place] % (Auto) 5.1 (0.0-10.0) % Eos % (Auto) 1.4 (0.0-4.0) % Baso % (Auto) 0.5 (0.0-2.0) % Neut # 15.4 H (1.8-7.0) K/uL Lymph # 1.3 (1.0-4.3) K/uL [place] # 0.9 H (0.0-0.8) K/uL Eos # 0.3 (0.0-0.7) K/uL Baso # 0.1 (0.0-0.2) K/uL Neutrophils % (Manual) 82 H (50-75) % Lymphocytes % (Manual) 9 L (20-40) % Monocytes % (Manual) 5 (0-10) % Eosinophils % (Manual) 4 (0-4) % Nucleated RBC % 1 H (0-0) % Toxic Granulation Present Platelet Estimate Slightly decreased L (NORMAL) Large Platelets Present Polychromasia Slight Hypochromasia (manual) Moderate Poikilocytosis (manual Slight Anisocytosis (manual) Slight Microcytosis (manual) Slight Macrocytosis (manual) Slight Target Cells Slight Tear Drop Cells Slight Ovalocytes Slight Hester-Mackey Bodies Slight Gilman Cells Slight Puncture Site Rr pCO2 41 (35-45) mm/Hg pO2 185 H (80-100) mm/Hg HCO3 26.4 (21-28) mmol/L ABG pH 7.42 (7.35-7.45) ABG Total CO2 27.9 (22-28) mmol/L ABG O2 Saturation 100.0 H (95-98) % ABG Base Excess 1.9 (-2.0-3.0) mmol/L ABG Hemoglobin 11.4 L (11.7-17.4) g/dL ABG Carboxyhemoglobin 2.2 H (0.5-1.5) % POC ABG HHb (Measured) 0.0 (0.0-5.0) % ABG Methemoglobin 1.0 (0.0-3.0) % Sj Test Pos A-a O2 Difference 120.0 mm/Hg Respiratory Index 0.6 Hgb O2 Saturation 96.8 (95.0-98.0) % Vent Mode Prvc Mechanical Rate 20 FiO2 50.0 % Tidal Volume 500 PEEP 5 Sodium (132-148) mmol/L Potassium (3.6-5.2) mmol/L Chloride (98-107) mmol/L Carbon Dioxide (22-30) mmol/L Anion Gap (10-20) BUN (7-17) mg/dL Creatinine (0.7-1.2) MG/DL Est GFR ( Amer) Est GFR (Non-Af Amer) POC Glucose (mg/dL) (65-110) mg/dL Random Glucose (65-105) mg/dL Calcium (8.6-10.4) mg/dl Phosphorus (2.5-4.5) mg/dL Magnesium (1.6-2.3) mg/dL Total Bilirubin (0.2-1.3) mg/dL AST (14-36) U/L ALT (9-52) U/L Alkaline Phosphatase (38-126) U/L Total Protein (6.3-8.3) g/dL Albumin (3.5-5.0) g/dL Globulin (2.2-3.9) gm/dL Albumin/Globulin Ratio (1.0-2.1) Laboratory Results - last 24 hr 06/05/17 06/05/17 06/05/17 06:00 06:26 06:26 WBC 17.9 H RBC 2.52 L Hgb 7.3 L Hct 22.0 L MCV 87.3 D MCH 28.8 MCHC 33.0 RDW 16.2 H Plt Count 118 L MPV 9.3 Neut % (Auto) 86.0 H Lymph % (Auto) 7.0 L [place] % (Auto) 5.1 Eos % (Auto) 1.4 Baso % (Auto) 0.5 Neut # 15.4 H Lymph # 1.3 [place] # 0.9 H Eos # 0.3 Baso # 0.1 Neutrophils % (Manual) 82 H Lymphocytes % (Manual) 9 L Monocytes % (Manual) 5 Eosinophils % (Manual) 4 Nucleated RBC % 1 H Toxic Granulation Present Platelet Estimate Slightly decreased L Large Platelets Present Polychromasia Slight Hypochromasia (manual) Moderate Poikilocytosis (manual Slight Anisocytosis (manual) Slight Microcytosis (manual) Slight Macrocytosis (manual) Slight Target Cells Slight Tear Drop Cells Slight Ovalocytes Slight Hester-Mackey Bodies Slight Gilman Cells Slight Puncture Site Rr pCO2 41 pO2 185 H HCO3 26.4 ABG pH 7.42 ABG Total CO2 27.9 ABG O2 Saturation 100.0 H ABG Base Excess 1.9 ABG Hemoglobin 11.4 L ABG Carboxyhemoglobin 2.2 H POC ABG HHb (Measured) 0.0 ABG Methemoglobin 1.0 Sj Test Pos A-a O2 Difference 120.0 Respiratory Index 0.6 Hgb O2 Saturation 96.8 Vent Mode Prvc Mechanical Rate 20 FiO2 50.0 Tidal Volume 500 PEEP 5 Sodium 136 Potassium 3.2 L Chloride 99 Carbon Dioxide 27 Anion Gap 13 BUN 62 H Creatinine 3.7 H Est GFR ( Amer) 14 Est GFR (Non-Af Amer) 12 POC Glucose (mg/dL) Random Glucose 106 H Calcium 8.6 Phosphorus 5.3 H Magnesium 2.4 H Total Bilirubin 1.4 H AST 133 H ALT 73 H Alkaline Phosphatase 56 Total Protein 4.9 L Albumin 2.6 L Globulin 2.2 Albumin/Globulin Ratio 1.2 06/05/17 06/05/17 07:17 08:31 WBC RBC Hgb Hct MCV MCH MCHC RDW Plt Count MPV Neut % (Auto) Lymph % (Auto) [place] % (Auto) Eos % (Auto) Baso % (Auto) Neut # Lymph # [place] # Eos # Baso # Neutrophils % (Manual) Lymphocytes % (Manual) Monocytes % (Manual) Eosinophils % (Manual) Nucleated RBC % Toxic Granulation Platelet Estimate Large Platelets Polychromasia Hypochromasia (manual) Poikilocytosis (manual Anisocytosis (manual) Microcytosis (manual) Macrocytosis (manual) Target Cells Tear Drop Cells Ovalocytes Hester-Mackey Bodies [place]issett Cells Puncture Site pCO2 pO2 HCO3 ABG pH ABG Total CO2 ABG O2 Saturation ABG Base Excess ABG Hemoglobin ABG Carboxyhemoglobin POC ABG HHb (Measured) ABG Methemoglobin Sj Test A-a O2 Difference Respiratory Index Hgb O2 Saturation Vent Mode Mechanical Rate FiO2 Tidal Volume PEEP Sodium Potassium Chloride Carbon Dioxide Anion Gap BUN Creatinine Est GFR ( Amer) Est GFR (Non-Af Amer) POC Glucose (mg/dL) 126 H 147 H Random Glucose Calcium Phosphorus Magnesium Total Bilirubin AST ALT Alkaline Phosphatase Total Protein Albumin Globulin Albumin/Globulin Ratio Assessment/Plan (1) Acute respiratory failure with hypoxia and hypercapnia Current Visit: Yes Status: Acute Attending/Attestation - Attestation I have personally seen and examined this patient.: Yes I have fully participated in the care of the patient.: Yes I have reviewed all pertinent clinical information: Yes Notes (Text): 06/05/17 16:54 I have seen and examined the patient. Medical records, lab studies, and imaging were reviewed by me and a management plan was formulated on multidisciplinary rounds with resident Dr. Srinivasan. I agree with their above documented assessment and plan. Patient is clinically stable. Acute renal failure contributed to shock from bleeding, now all a/c stopped. Patient was on triple a/c ASA/Plavix for CAD/ NSTEMI and full dose lovenox for Afib. Will have to restart slowly 1 week from now, just Plavix and possibly Eliquis for Afib, discussed with Dr. Hart - Cardiology. Continue Dialysis on schedule. Extubated patient today, lungs clear and tolerating PS trials. Critical Care Time 35 minutes. Multi-disciplinary rounds were performed with house staff, nursing, speech therapy, respiratory therapy, pharmacy and nutrition with integrated input from the primary team/attending and other consulting services. The documented time is cumulative and includes review of patient data/exams/labs/chart review and examination of the patient on rounds and throughout the day; time is exclusive of any procedures or teaching time. 06/05/17 16:57
[2017-06-05] MEDS: Pantoprazole 40 mg Susp UD NG SCH (09:02)
[2017-06-05] MEDS: Multiple Vitamins Tab PO SCH (09:02)
--- NOTE | 2017-06-05 09:26 | CP.PCM.PN ---
Subjective - Date & Time of Evaluation Date of Evaluation: 06/05/17 Time of Evaluation: 09:20 - Subjective Subjective: Patient remains intubated at this time on PRVC settings at the moment. She is awake, alert, opens eyes with stimulation. Hgb was 7.3 today, urine output recorded as 397 mL yesterday As mentioned previously the patient is here with acute hypercapnic respiratory failure and new onset atrial fibrillation. She remains on ventilator at this time. The anticoagulation is on hold at this time due to anemia requiring PRBCs Objective - Vital Signs/Intake and Output Vital Signs (last 24 hours): Temp Pulse Resp BP Pulse Ox 98.7 F 77 20 140/54 L 100 06/05/17 07:45 06/05/17 07:05 06/05/17 07:05 06/05/17 07:05 06/05/17 07:05 Intake and Output: 06/05/17 06/05/17 06:59 18:59 Intake Total 790 40 Output Total 220 10 Balance 570 30 - Medications Medications: Current Medications Acetylcysteine (Acetylcysteine 20%) 4 ml INH RQ6 [facility] Last Admin: 06/05/17 08:13 Dose: 4 ml Albuterol/Ipratropium (Duoneb 3 Mg/0.5 Mg (3 Ml) Ud) 3 ml INH RQ6 [facility] Last Admin: 06/05/17 08:13 Dose: 3 ml Calcium Acetate (Phoslo) 667 mg PO TIDCC [facility] Last Admin: 06/05/17 08:58 Dose: 667 mg Diltiazem HCl (Cardizem) 30 mg PO Q6H [facility] Last Admin: 06/05/17 05:00 Dose: 30 mg Dorzolamide HCl (Trusopt) 10 ml OU TID [facility] Last Admin: 06/04/17 17:41 Dose: 1 drop Epoetin Ken (Procrit) 10,000 unit IV MWF [facility] Ferric Sodium Gluconate Complex (Ferrlecit) 125 mg IVPB DAILY [facility] Stop: 06/11/17 14:01 Last Admin: 06/04/17 09:32 Dose: 125 mg Norepinephrine Bitartrate 4 mg (/ Sodium Chloride) 254 mls @ 15.24 mls/hr IV .[id number] PRN; Protocol; 4 MCG/MIN PRN Reason: TITRATE PER MD ORDER Last Titration: 06/03/17 03:00 Dose: 0 mcg/min, 0 mls/hr Linezolid (Zyvox 600mg/300ml D5w) 600 mg in 300 mls @ 200 mls/hr IVPB Q12 [facility] Last Admin: 06/04/17 21:03 Dose: 200 mls/hr Piperacillin Sod/Tazobactam Sod (Zosyn 2.25 Gm Iv Premix) 2.25 gm in 50 mls @ 100 mls/hr IVPB Q8H [facility] Last Admin: 06/05/17 05:33 Dose: 100 mls/hr Montelukast Sodium (Singulair) 10 mg PO DAILY [facility] Last Admin: 06/05/17 09:02 Dose: 10 mg Multivitamins (Hexavitamin) 1 tab PO DAILY [facility] Last Admin: 06/05/17 09:02 Dose: 1 tab Nystatin (Nystop Topical Powder) 1 applic TOP TID [facility] Last Admin: 06/04/17 17:42 Dose: 1 pow Pantoprazole Sodium (Protonix Susp) 40 mg NG DAILY [facility] Last Admin: 06/05/17 09:02 Dose: 40 mg - Labs Labs: 06/05/17 06:26 06/05/17 06:26 PT 12.4 SECONDS (9.7-12.2) H 06/03/17 17:53 INR 1.1 06/03/17 17:53 APTT 27 SECONDS (21-34) 06/03/17 17:53 - Constitutional Appears: Unkempt, Confused, Chronically Ill - Eye Exam Eye Exam: Normal appearance - ENT Exam ENT Exam: Mucous Membranes Moist - Respiratory Exam Respiratory Exam: Decreased Breath Sounds Additional comments: Mechanical breath sounds - Cardiovascular Exam Cardiovascular Exam: Irregular Rhythm - GI/Abdominal Exam GI & Abdominal Exam: Distended, Soft. absent: Firm, Guarding, Rigid, Tenderness - Neurological Exam Neurological Exam: Alert, Awake - Skin Skin Exam: Pallor, Pallor Assessment and Plan - Assessment and Plan (Free Text) Assessment: (1) Acute respiratory failure with hypoxia and hypercapnia 06/05: 06/04: currently on CPAP settings 06/03: Remains intubated. Now off pressor medications. Had 1.5 L removed yesterday 06/02: Remains intubated, on IV pressor medications. Blood pressure better now. There are plans for HD to see if this can help remove fluid from lungs 06/01 Now re-intubated after patient became hypoxcic 05/30: Currently on weaning trial. 05/29: Currently patient remains on mechanical ventilator. Review of the blood gases show no longer acidemic or CO2 retaining. Hopefully can be weaned soon. Likey complications from CO2 and CHF as well as pneumonia. (2) Pneumonia - questionable area on the right lower lobe seen on CT done on 06/05: Further decrease om WBC.no fevers or chills 06/04: Decrease WBC today, 06/03: The WBC decreased to 25, Continued on Zyvox and Zosyn 06/02: Signifigtanly elevated WBC. Now changed to Zyvox and Zosyn IV 05/30: WBC is only decreased slightly. There is still large left shift. Afebrile. IV Zosyn started on 05/26 and IV Vanco started 05/27. 05/29: Remains on IV abx Zosyn and Vancomycin - the WBC is 14. Currently afebrile and also blood and sputum cultures are negative (3) Acute on chronic kidney injury, renal failure has femoral access. 06/05: Again urine out put in the 390s. Might be getting HD again soon 06/04: Urine output yesterday 390 ml 06/03: Yesterday had permacath placed 1.5 L removed 06/02: There are plans for HD to be started (4) COPD exacerbation 05/29: On nebulizers and twice a day solumedrol (5) Atrial fibrillation, new onset 06/05: Remains in atrial fibrillation. HR on telemetry was stable. Not on anticogulation due to anemia 06/03: Again anemia Hgb now 6.9. Has had a total of 3 units of PRBC, lovenox on hold, positive occult 06/02: Because of the anemia has been off lovenox. 05/30: HR has been in the 90s atrial fibrillation. Rate controlled now. Continue Cardizem by mouth for rate control. Patient is on therapeutic anticoagulation with Lovenox as there is a high CHADs score (6) CHF (congestive heart failure) 05/29: Continue following CXRAYs, urine ins and outs. Patient is getting lasix BID and also is on vasotech. (7) History of hyperlipidemia
[2017-06-05] MEDS: Dorzolamide 2% Opht Sol 10ml OU SCH ×3 (11:19→18:39)
--- NOTE | 2017-06-05 11:36 | CP.PCM.PN ---
Subjective - Date & Time of Evaluation Date of Evaluation: 06/05/17 Time of Evaluation: 11:34 - Subjective Subjective: off sedation, moving all extremities trying to communicate on hd, uf 3L uop < 400cc bp stable Objective - Vital Signs/Intake and Output Vital Signs (last 24 hours): Temp Pulse Resp BP Pulse Ox 98.5 F 75 22 145/56 L 100 06/05/17 10:00 06/05/17 11:00 06/05/17 11:00 06/05/17 11:00 06/05/17 11:00 Intake and Output: 06/05/17 06/05/17 06:59 18:59 Intake Total 790 40 Output Total 220 10 Balance 570 30 - Medications Medications: Current Medications Acetylcysteine (Acetylcysteine 20%) 4 ml INH RQ6 [facility] Last Admin: 06/05/17 08:13 Dose: 4 ml Albuterol/Ipratropium (Duoneb 3 Mg/0.5 Mg (3 Ml) Ud) 3 ml INH RQ6 [facility] Last Admin: 06/05/17 08:13 Dose: 3 ml Calcium Acetate (Phoslo) 667 mg PO TIDCC [facility] Last Admin: 06/05/17 08:58 Dose: 667 mg Diltiazem HCl (Cardizem) 30 mg PO Q6H [facility] Last Admin: 06/05/17 05:00 Dose: 30 mg Dorzolamide HCl (Trusopt) 10 ml OU TID [facility] Last Admin: 06/05/17 11:19 Dose: Not Given Epoetin Ken (Procrit) 10,000 unit IV MWF [facility] Ferric Sodium Gluconate Complex (Ferrlecit) 125 mg IVPB DAILY [facility] Stop: 06/11/17 14:01 Last Admin: 06/04/17 09:32 Dose: 125 mg Linezolid (Zyvox 600mg/300ml D5w) 600 mg in 300 mls @ 200 mls/hr IVPB Q12 [facility] Stop: 06/06/17 10:00 Last Admin: 06/04/17 21:03 Dose: 200 mls/hr Piperacillin Sod/Tazobactam Sod (Zosyn 2.25 Gm Iv Premix) 2.25 gm in 50 mls @ 100 mls/hr IVPB Q8H [facility] Stop: 06/06/17 10:00 Last Admin: 06/05/17 05:33 Dose: 100 mls/hr Montelukast Sodium (Singulair) 10 mg PO DAILY [facility] Last Admin: 06/05/17 09:02 Dose: 10 mg Multivitamins (Hexavitamin) 1 tab PO DAILY [facility] Last Admin: 06/05/17 09:02 Dose: 1 tab Nystatin (Nystop Topical Powder) 1 applic TOP TID [facility] Last Admin: 06/05/17 11:19 Dose: Not Given Pantoprazole Sodium (Protonix Susp) 40 mg NG DAILY [facility] Last Admin: 06/05/17 09:02 Dose: 40 mg - Labs Labs: 06/05/17 06:26 06/05/17 06:26 PT 12.4 SECONDS (9.7-12.2) H 06/03/17 17:53 INR 1.1 06/03/17 17:53 APTT 27 SECONDS (21-34) 06/03/17 17:53 - Constitutional Appears: No Acute Distress, Chronically Ill - Head Exam Head Exam: NORMAL INSPECTION - Eye Exam Eye Exam: Normal appearance - ENT Exam Additional comments: et tube - Neck Exam Neck Exam: Normal Inspection - Respiratory Exam Respiratory Exam: Decreased Breath Sounds, Rales - Cardiovascular Exam Cardiovascular Exam: Irregular Rhythm - GI/Abdominal Exam GI & Abdominal Exam: Distended, Soft, Hypoactive Bowel Sounds - Extremities Exam Extremities Exam: Pedal Edema (3+) Assessment and Plan (1) CEZAR (acute kidney injury) Status: Acute (2) Acute respiratory failure Status: Acute (3) Atrial fibrillation, new onset Status: Acute (4) COPD exacerbation Status: Acute (5) Change in mental state Status: Acute (6) Elevated WBCs Status: Acute - Assessment and Plan (Free Text) Assessment: -maintain hd, plan for another treatment tomorrow for uf attempt extubation post dialysis antibiotics / supportive care on procrit. transfuse as needed
[2017-06-05] MEDS: EPOETIN ALFA 10,000 UNIT/ML ML IV SCH (12:00)
[2017-06-05] MEDS: Ferric Sodium Gluconat Complex 62.5 mg/5 ml Vial IVPB SCH ×2 (12:01→14:59)
[2017-06-05] MEDS: Linezolid 600 mg in D5W 300 ml 600 MG/300 ML BAG IVPB SCH (15:22)
--- NOTE | 2017-06-05 16:55 | CP.PCM.PN ---
Subjective - Date & Time of Evaluation Date of Evaluation: 06/05/17 Time of Evaluation: 04:50 - Subjective Subjective: dictated Objective - Vital Signs/Intake and Output Vital Signs (last 24 hours): Temp Pulse Resp BP Pulse Ox 98.4 F 91 H 25 H 139/50 L 100 06/05/17 15:27 06/05/17 16:00 06/05/17 16:00 06/05/17 14:25 06/05/17 16:00 Intake and Output: 06/05/17 06/05/17 06:59 18:59 Intake Total 790 660 Output Total 220 125 Balance 570 535 - Medications Medications: Current Medications Acetylcysteine (Acetylcysteine 20%) 4 ml INH RQ6 [facility] Last Admin: 06/05/17 13:44 Dose: 4 ml Albuterol/Ipratropium (Duoneb 3 Mg/0.5 Mg (3 Ml) Ud) 3 ml INH RQ6 [facility] Last Admin: 06/05/17 13:44 Dose: 3 ml Calcium Acetate (Phoslo) 667 mg PO TIDCC [facility] Last Admin: 06/05/17 14:59 Dose: Not Given Diltiazem HCl (Cardizem) 30 mg PO Q6H [facility] Last Admin: 06/05/17 14:59 Dose: Not Given Dorzolamide HCl (Trusopt) 10 ml OU TID [facility] Last Admin: 06/05/17 15:20 Dose: 1 drop Epoetin Ken (Procrit) 10,000 unit IV MWF [facility] Last Admin: 06/05/17 12:00 Dose: 10,000 unit Ferric Sodium Gluconate Complex (Ferrlecit) 125 mg IVPB DAILY [facility] Stop: 06/11/17 14:01 Last Admin: 06/05/17 14:59 Dose: Not Given Linezolid (Zyvox 600mg/300ml D5w) 600 mg in 300 mls @ 200 mls/hr IVPB Q12 [facility] Stop: 06/06/17 10:00 Last Admin: 06/05/17 15:22 Dose: 200 mls/hr Piperacillin Sod/Tazobactam Sod (Zosyn 2.25 Gm Iv Premix) 2.25 gm in 50 mls @ 100 mls/hr IVPB Q8H [facility] Stop: 06/06/17 10:00 Last Admin: 06/05/17 15:19 Dose: 100 mls/hr Montelukast Sodium (Singulair) 10 mg PO DAILY [facility] Last Admin: 06/05/17 09:02 Dose: 10 mg Multivitamins (Hexavitamin) 1 tab PO DAILY [facility] Last Admin: 06/05/17 09:02 Dose: 1 tab Nystatin (Nystop Topical Powder) 1 applic TOP TID [facility] Last Admin: 06/05/17 15:21 Dose: 1 pow Pantoprazole Sodium (Protonix Susp) 40 mg NG DAILY [facility] Last Admin: 06/05/17 09:02 Dose: 40 mg - Labs Labs: 06/05/17 06:26 06/05/17 06:26 PT 12.4 SECONDS (9.7-12.2) H 06/03/17 17:53 INR 1.1 06/03/17 17:53 APTT 27 SECONDS (21-34) 06/03/17 17:53
[2017-06-06] MEDS: Acetylcysteine 20% Inhal Soln (4ml) INH SCH ×4 (01:44→20:31)
[2017-06-06] MEDS: Albuterol-Ipratrop 3 mg / 0.5 (3 ml) UD INH SCH ×4 (01:44→20:31)
[2017-06-06] MEDS: Piperacill/Tazo 2.25gm in Dex 2.25 GM/50 ML BAG IVPB SCH ×3 (05:35→23:38)
[2017-06-06 06:01] LABS: ABG ALLEN TEST POS; ARTERIAL BLOOD GAS MODE BiPAP; ARTERIAL BLOOD HGB O2 SAT 95.7 % (95.0-98.0); CARBOXYHEMOGLOBIN 2.4 % (0.5-1.5); DRAW SITE RR; HHB 0.4 % (0.0-5.0); METHEMOGLOBIN 1.5 % (0.0-3.0)
[2017-06-06 06:50] LABS: BASO # 0.1 K/uL (0.0-0.2); BASO % 0.4 % (0.0-2.0); EOS # 0.2 K/uL (0.0-0.7); EOS % 1.1 % (0.0-4.0); HEMATOCRIT 23.5 % (34.0-47.0); LYMPH # 1.3 K/uL (1.0-4.3); LYMPH % 7.3 % (20.0-40.0); MEAN CELL VOLUME 88.3 fL (81.0-99.0); MEAN CORPUSCULAR HEMOGLOBIN 28.4 pg (27.0-31.0); MEAN CORPUSCULAR HGB CONC 32.1 g/dL (33.0-37.0); MONO # 0.8 K/uL (0.0-0.8); MONO % 4.9 % (0.0-10.0); NRBC % 0.4 % (0.0-2.0); PLATELET COUNT 111 K/uL (130-400); RED CELL DISTRIBUTION WIDTH 16.7 % (11.5-14.5); WHITE BLOOD COUNT 17.2 K/uL (4.8-10.8)
[2017-06-06 07:09] LABS: ALB/GLOB RATIO 1.3 (1.0-2.1); BILIRUBIN,TOTAL 1.8 mg/dL (0.2-1.3); CALCIUM 8.5 mg/dl (8.6-10.4); MAGNESIUM 2.3 mg/dL (1.6-2.3); PHOSPHOROUS 4.8 mg/dL (2.5-4.5); POTASSIUM 3.7 mmol/L (3.6-5.2)
--- NOTE | 2017-06-06 07:53 | CP.PCM.PN ---
Subjective - Date & Time of Evaluation Date of Evaluation: 06/04/17 Time of Evaluation: 08:05 - Subjective Subjective: Patient seen and evaluated Intubated Physical examination - Head Exam Head Exam: ATRAUMATIC, NORMAL INSPECTION - Eye Exam Eye Exam: PERRL - ENT Exam ENT Exam: Mucous Membranes Moist - Neck Exam Neck Exam: Normal Inspection - Respiratory Exam Respiratory Exam: Decreased Breath Sounds - Cardiovascular Exam Cardiovascular Exam: Irregular Rhythm, +S1, +S2 - GI/Abdominal Exam GI & Abdominal Exam: Normal Bowel Sounds - Skin Skin Exam: Warm Objective - Vital Signs/Intake and Output Vital Signs (last 24 hours): Temp Pulse Resp BP Pulse Ox 98.4 F 83 21 156/53 H 100 06/06/17 04:00 06/06/17 07:00 06/06/17 07:00 06/06/17 06:26 06/06/17 07:00 Intake and Output: 06/06/17 06/06/17 06:59 18:59 Intake Total 50 Output Total 350 20 Balance -300 -20 - Medications Medications: Current Medications Acetylcysteine (Acetylcysteine 20%) 4 ml INH RQ6 [facility] Last Admin: 06/06/17 01:44 Dose: 4 ml Albuterol/Ipratropium (Duoneb 3 Mg/0.5 Mg (3 Ml) Ud) 3 ml INH RQ6 [facility] Last Admin: 06/06/17 01:44 Dose: 3 ml Calcium Acetate (Phoslo) 667 mg PO TIDCC [facility] Last Admin: 06/05/17 18:38 Dose: Not Given Diltiazem HCl (Cardizem) 30 mg PO Q6H [facility] Last Admin: 06/06/17 05:36 Dose: Not Given Dorzolamide HCl (Trusopt) 10 ml OU TID [facility] Last Admin: 06/05/17 18:39 Dose: 1 drop Epoetin Ken (Procrit) 10,000 unit IV MWF [facility] Last Admin: 06/05/17 12:00 Dose: 10,000 unit Ferric Sodium Gluconate Complex (Ferrlecit) 125 mg IVPB DAILY [facility] Stop: 06/11/17 14:01 Last Admin: 06/05/17 14:59 Dose: Not Given Piperacillin Sod/Tazobactam Sod (Zosyn 2.25 Gm Iv Premix) 2.25 gm in 50 mls @ 100 mls/hr IVPB Q8H [facility] Stop: 06/06/17 10:00 Last Admin: 06/06/17 05:35 Dose: 100 mls/hr Montelukast Sodium (Singulair) 10 mg PO DAILY [facility] Last Admin: 06/05/17 09:02 Dose: 10 mg Multivitamins (Hexavitamin) 1 tab PO DAILY [facility] Last Admin: 06/05/17 09:02 Dose: 1 tab Nystatin (Nystop Topical Powder) 1 applic TOP TID [facility] Last Admin: 06/05/17 18:39 Dose: 1 pow Pantoprazole Sodium (Protonix Susp) 40 mg NG DAILY [facility] Last Admin: 06/05/17 09:02 Dose: 40 mg - Labs Labs: 06/06/17 06:44 06/06/17 06:44 PT 12.4 SECONDS (9.7-12.2) H 06/03/17 17:53 INR 1.1 06/03/17 17:53 APTT 27 SECONDS (21-34) 06/03/17 17:53 Assessment and Plan - Assessment and Plan (Free Text) Assessment: (1) Atrial fibrillation, new onset Assessment & Plan: Rate controlled now. Continue Cardizem by mouth for rate control. (2) CHF (congestive heart failure) Assessment & Plan: IV Lasix (3) History of hyperlipidemia Assessment & Plan: Continue statin. (4) History of hypertension Assessment & Plan: Continue current medication. (5) Acute respiratory failure with hypoxia and hypercapnia On Mechanical ventilation (6) Pneumonia Assessment & Plan: ID on case on antibiotics (7) COPD exacerbation Assessment & Plan: On nebulizers
--- NOTE | 2017-06-06 07:56 | CP.PCM.PN ---
Subjective - Date & Time of Evaluation Date of Evaluation: 06/05/17 Time of Evaluation: 18:15 - Subjective Subjective: Patient seen and evaluated No new cardiac events noted Physical examination - Head Exam Head Exam: ATRAUMATIC, NORMAL INSPECTION - Eye Exam Eye Exam: PERRL - ENT Exam ENT Exam: Mucous Membranes Moist - Neck Exam Neck Exam: Normal Inspection - Respiratory Exam Respiratory Exam: Decreased Breath Sounds - Cardiovascular Exam Cardiovascular Exam: Irregular Rhythm, +S1, +S2 - GI/Abdominal Exam GI & Abdominal Exam: Normal Bowel Sounds - Skin Skin Exam: Warm Objective - Vital Signs/Intake and Output Vital Signs (last 24 hours): Temp Pulse Resp BP Pulse Ox 98.4 F 83 21 156/53 H 100 06/06/17 04:00 06/06/17 07:00 06/06/17 07:00 06/06/17 06:26 06/06/17 07:00 Intake and Output: 06/06/17 06/06/17 06:59 18:59 Intake Total 50 Output Total 350 20 Balance -300 -20 - Medications Medications: Current Medications Acetylcysteine (Acetylcysteine 20%) 4 ml INH RQ6 [facility] Last Admin: 06/06/17 01:44 Dose: 4 ml Albuterol/Ipratropium (Duoneb 3 Mg/0.5 Mg (3 Ml) Ud) 3 ml INH RQ6 [facility] Last Admin: 06/06/17 01:44 Dose: 3 ml Calcium Acetate (Phoslo) 667 mg PO TIDCC [facility] Last Admin: 06/05/17 18:38 Dose: Not Given Diltiazem HCl (Cardizem) 30 mg PO Q6H [facility] Last Admin: 06/06/17 05:36 Dose: Not Given Dorzolamide HCl (Trusopt) 10 ml OU TID [facility] Last Admin: 06/05/17 18:39 Dose: 1 drop Epoetin Ken (Procrit) 10,000 unit IV MWF [facility] Last Admin: 06/05/17 12:00 Dose: 10,000 unit Ferric Sodium Gluconate Complex (Ferrlecit) 125 mg IVPB DAILY [facility] Stop: 06/11/17 14:01 Last Admin: 06/05/17 14:59 Dose: Not Given Piperacillin Sod/Tazobactam Sod (Zosyn 2.25 Gm Iv Premix) 2.25 gm in 50 mls @ 100 mls/hr IVPB Q8H [facility] Stop: 06/06/17 10:00 Last Admin: 06/06/17 05:35 Dose: 100 mls/hr Montelukast Sodium (Singulair) 10 mg PO DAILY [facility] Last Admin: 06/05/17 09:02 Dose: 10 mg Multivitamins (Hexavitamin) 1 tab PO DAILY [facility] Last Admin: 06/05/17 09:02 Dose: 1 tab Nystatin (Nystop Topical Powder) 1 applic TOP TID [facility] Last Admin: 06/05/17 18:39 Dose: 1 pow Pantoprazole Sodium (Protonix Susp) 40 mg NG DAILY [facility] Last Admin: 06/05/17 09:02 Dose: 40 mg - Labs Labs: 06/06/17 06:44 06/06/17 06:44 PT 12.4 SECONDS (9.7-12.2) H 06/03/17 17:53 INR 1.1 06/03/17 17:53 APTT 27 SECONDS (21-34) 06/03/17 17:53 Assessment and Plan - Assessment and Plan (Free Text) Assessment: (1) Atrial fibrillation, new onset Assessment & Plan: Rate controlled now. Continue Cardizem by mouth for rate control. (2) CHF (congestive heart failure) Assessment & Plan: IV Lasix (3) History of hyperlipidemia Assessment & Plan: Continue statin. (4) History of hypertension Assessment & Plan: Continue current medication. (5) Acute respiratory failure with hypoxia and hypercapnia On Mechanical ventilation (6) Pneumonia Assessment & Plan: ID on case on antibiotics (7) COPD exacerbation Assessment & Plan: On nebulizers
--- NOTE | 2017-06-06 08:44 | CP.PCM.PN ---
Subjective - Date & Time of Evaluation Date of Evaluation: 06/06/17 Time of Evaluation: 08:40 - Subjective Subjective: urine ouput about 400cc comfortable in bed on bipap not answering questions or following commands ROS unobtainable not answering questions Objective - Vital Signs/Intake and Output Vital Signs (last 24 hours): Temp Pulse Resp BP Pulse Ox 98.8 F 83 21 156/53 H 100 06/06/17 08:00 06/06/17 07:00 06/06/17 07:00 06/06/17 06:26 06/06/17 07:00 Intake and Output: 06/06/17 06/06/17 06:59 18:59 Intake Total 50 Output Total 350 20 Balance -300 -20 - Medications Medications: Current Medications Acetylcysteine (Acetylcysteine 20%) 4 ml INH RQ6 [facility] Last Admin: 06/06/17 01:44 Dose: 4 ml Albuterol/Ipratropium (Duoneb 3 Mg/0.5 Mg (3 Ml) Ud) 3 ml INH RQ6 [facility] Last Admin: 06/06/17 01:44 Dose: 3 ml Calcium Acetate (Phoslo) 667 mg PO TIDCC [facility] Last Admin: 06/05/17 18:38 Dose: Not Given Diltiazem HCl (Cardizem) 30 mg PO Q6H [facility] Last Admin: 06/06/17 05:36 Dose: Not Given Dorzolamide HCl (Trusopt) 10 ml OU TID [facility] Last Admin: 06/05/17 18:39 Dose: 1 drop Epoetin Ken (Procrit) 10,000 unit IV MWF [facility] Last Admin: 06/05/17 12:00 Dose: 10,000 unit Ferric Sodium Gluconate Complex (Ferrlecit) 125 mg IVPB DAILY [facility] Stop: 06/11/17 14:01 Last Admin: 06/05/17 14:59 Dose: Not Given Piperacillin Sod/Tazobactam Sod (Zosyn 2.25 Gm Iv Premix) 2.25 gm in 50 mls @ 100 mls/hr IVPB Q8H [facility] Stop: 06/06/17 10:00 Last Admin: 06/06/17 05:35 Dose: 100 mls/hr Montelukast Sodium (Singulair) 10 mg PO DAILY [facility] Last Admin: 09/22/17 09:02 Dose: 10 mg Multivitamins (Hexavitamin) 1 tab PO DAILY [facility] Last Admin: 06/05/17 09:02 Dose: 1 tab Nystatin (Nystop Topical Powder) 1 applic TOP TID [facility] Last Admin: 06/05/17 18:39 Dose: 1 pow Pantoprazole Sodium (Protonix Susp) 40 mg NG DAILY [facility] Last Admin: 06/05/17 09:02 Dose: 40 mg - Labs Labs: 06/06/17 06:44 06/06/17 06:44 PT 12.4 SECONDS (9.7-12.2) H 06/03/17 17:53 INR 1.1 06/03/17 17:53 APTT 27 SECONDS (21-34) 06/03/17 17:53 - Constitutional Appears: No Acute Distress - Head Exam Additional comments: on bipap - ENT Exam ENT Exam: Mucous Membranes Dry - Respiratory Exam Respiratory Exam: Clear to Ausculation Bilateral - Cardiovascular Exam Cardiovascular Exam: Irregular Rhythm - GI/Abdominal Exam GI & Abdominal Exam: Soft. absent: Tenderness Additional comments: obese - Extremities Exam Extremities Exam: absent: Calf Tenderness, Pedal Edema - Skin Skin Exam: Dry Assessment and Plan (1) Acute respiratory failure Status: Acute (2) Atrial fibrillation, new onset Status: Acute (3) CHF (congestive heart failure) Status: Acute (4) COPD exacerbation Status: Acute (5) History of hypertension Status: Acute - Assessment and Plan (Free Text) Plan: schedule dialysis again today with ultrafltration
[2017-06-06 08:47] LABS: NEUTROPHIL 83 % (50-75); TOTAL CELLS COUNTED 100
[2017-06-06 08:48] LABS: LARGE PLATELETS PRESENT
[2017-06-06] MEDS: Dorzolamide 2% Opht Sol 10ml OU SCH ×3 (10:34→16:59)
[2017-06-06] MEDS: Pantoprazole 40 mg Susp UD NG SCH (10:36)
[2017-06-06] MEDS: Multiple Vitamins Tab PO SCH (10:37)
[2017-06-06] MEDS: Ferric Sodium Gluconat Complex 62.5 mg/5 ml Vial IVPB SCH (11:14)
--- NOTE | 2017-06-06 15:44 | CP.PCM.PN ---
Subjective - Date & Time of Evaluation Date of Evaluation: 06/06/17 Time of Evaluation: 15:20 - Subjective Subjective: Patient was seen and examined. Now off of mechanical ventilation. No acute events overnight other than needing to be on Bipap following extubation. She is awake, alert, moving her arms and hands. The patient's son Hussein at bedside and we had a long conversation about her comming to the hospital, the respiratory failure, hypercapnia, atrial fibrillation, and HD. Per my discussion with her son, the patient's mental status is at baseline at this time. Today her Hgb is 7.6 and her urine out put so far today was 200 cc. She had HD earlier this morning. Objective - Vital Signs/Intake and Output Vital Signs (last 24 hours): Temp Pulse Resp BP Pulse Ox 99 F 91 H 22 151/52 H 100 06/06/17 12:00 06/06/17 14:40 06/06/17 14:45 06/06/17 14:40 06/06/17 14:40 Intake and Output: 06/06/17 06/06/17 06:59 18:59 Intake Total 50 0 Output Total 350 210 Balance -300 -210 - Medications Medications: Current Medications Acetylcysteine (Acetylcysteine 20%) 4 ml INH RQ6 [facility] Last Admin: 06/06/17 14:00 Dose: 4 ml Albuterol/Ipratropium (Duoneb 3 Mg/0.5 Mg (3 Ml) Ud) 3 ml INH RQ6 [facility] Last Admin: 06/06/17 14:00 Dose: 3 ml Calcium Acetate (Phoslo) 667 mg PO TIDCC [facility] Last Admin: 06/06/17 12:00 Dose: Not Given Diltiazem HCl (Cardizem) 30 mg PO Q6H [facility] Last Admin: 06/06/17 12:00 Dose: Not Given Dorzolamide HCl (Trusopt) 10 ml OU TID [facility] Last Admin: 06/06/17 14:02 Dose: 1 drop Epoetin Ken (Procrit) 10,000 unit IV MWF [facility] Last Admin: 06/05/17 12:00 Dose: 10,000 unit Ferric Sodium Gluconate Complex (Ferrlecit) 125 mg IVPB DAILY [facility] Stop: 06/11/17 14:01 Last Admin: 06/06/17 11:14 Dose: 125 mg Piperacillin Sod/Tazobactam Sod (Zosyn 2.25 Gm Iv Premix) 2.25 gm in 50 mls @ 100 mls/hr IVPB Q8H [facility] Montelukast Sodium (Singulair) 10 mg PO DAILY [facility] Last Admin: 06/06/17 10:36 Dose: Not Given Multivitamins (Hexavitamin) 1 tab PO DAILY [facility] Last Admin: 06/06/17 10:37 Dose: Not Given Nystatin (Nystop Topical Powder) 1 applic TOP TID [facility] Last Admin: 06/06/17 14:01 Dose: 1 pow Pantoprazole Sodium (Protonix Inj) 40 mg IVP DAILY [facility] Last Admin: 06/06/17 14:02 Dose: 40 mg - Labs Labs: 06/06/17 06:44 06/06/17 06:44 PT 12.4 SECONDS (9.7-12.2) H 06/03/17 17:53 INR 1.1 06/03/17 17:53 APTT 27 SECONDS (21-34) 06/03/17 17:53 - Constitutional Appears: No Acute Distress, Unkempt, Older Than Stated Age, Confused, Chronically Ill - Head Exam Head Exam: NORMAL INSPECTION - Eye Exam Eye Exam: EOMI, Normal appearance - ENT Exam ENT Exam: Mucous Membranes Moist - Respiratory Exam Respiratory Exam: Decreased Breath Sounds, Rhonchi - Cardiovascular Exam Cardiovascular Exam: Irregular Rhythm - GI/Abdominal Exam GI & Abdominal Exam: Soft, Normal Bowel Sounds. absent: Distended, Firm, Guarding, Rigid, Tenderness - Extremities Exam Additional comments: Echymosis bilateral arms - Neurological Exam Neurological Exam: Alert, Altered, Awake Neuro motor strength exam: Left Upper Extremity: 4, Right Upper Extremity: 4 - Psychiatric Exam Psychiatric exam: Depressed, Flat Affect - Skin Skin Exam: Pallor, Warm Assessment and Plan - Assessment and Plan (Free Text) Assessment: (1) Acute respiratory failure with hypoxia and hypercapnia 06/06: Now extubated, was doing ok with nasal canula. I had a long discussion with the patient's son at bedside. 06/04: currently on CPAP settings 06/03: Remains intubated. Now off pressor medications. Had 1.5 L removed yesterday 06/02: Remains intubated, on IV pressor medications. Blood pressure better now. There are plans for HD to see if this can help remove fluid from lungs 06/01 Now re-intubated after patient became hypoxcic 05/30: Currently on weaning trial. 05/29: Currently patient remains on mechanical ventilator. Review of the blood gases show no longer acidemic or CO2 retaining. Hopefully can be weaned soon. Likey complications from CO2 and CHF as well as pneumonia. (2) Pneumonia - questionable area on the right lower lobe seen on CT done on 06/06: Renewed the IV Zosyn. 06/05: Further decrease om WBC.no fevers or chills 06/04: Decrease WBC today, 06/03: The WBC decreased to 25, Continued on Zyvox and Zosyn 06/02: Signifigtanly elevated WBC. Now changed to Zyvox and Zosyn IV 05/30: WBC is only decreased slightly. There is still large left shift. Afebrile. IV Zosyn started on 05/26 and IV Vanco started 05/27. 05/29: Remains on IV abx Zosyn and Vancomycin - the WBC is 14. Currently afebrile and also blood and sputum cultures are negative (3) Acute on chronic kidney injury, renal failure has femoral access. 06/06: Again had HD this morning. Urine outs were 500 yesterday and the output is 200 today 06/05: Again urine out put in the 390s. Might be getting HD again soon 06/04: Urine output yesterday 390 ml 06/03: Yesterday had permacath placed 1.5 L removed 06/02: There are plans for HD to be started (4) COPD exacerbation 05/29: On nebulizers and twice a day solumedrol (5) Atrial fibrillation, new onset 06/06: Stable at this time. No runs of RVR seen on telemetry. 06/05: Remains in atrial fibrillation. HR on telemetry was stable. Not on anticogulation due to anemia 06/03: Again anemia Hgb now 6.9. Has had a total of 3 units of PRBC, lovenox on hold, positive occult 06/02: Because of the anemia has been off lovenox. 05/30: HR has been in the 90s atrial fibrillation. Rate controlled now. Continue Cardizem by mouth for rate control. Patient is on therapeutic anticoagulation with Lovenox as there is a high CHADs score (6) CHF (congestive heart failure) 06/06: Moderate venous congestion as well as small blateral pleural effusions seen on film. She is getting HD to remove excess fluid. 05/29: Continue following CXRAYs, urine ins and outs. Patient is getting lasix BID and also is on vasotech. (7) History of hyperlipidemia
--- NOTE | 2017-06-07 00:22 | CP.CCUPN ---
CCU Subjective - Physician Review Events Since Last Encounter (Free Text): 06/07/17 00:22 Patient received hemodialysis. More awake and responding. Patient is able to tolerate the liquid diet. On and off BiPAP. Currently nasal cannula Vital signs stable. Vital signs reviewed No neck vein distention noted Chest good air entry bilaterally, no wheezing or rales noted CVS regular heart sound, no murmur noted Abdomen soft, nontender. Generalized edema noted Confused Labs reviewed Assessment and recommendation: 76-year-old female with history of congestive heart failure, COPD atrial fibrillation. Significant hematoma, complicated with the acute renal insufficiency. Status post extubation. Currently doing well. Continue the current treatment. will start PT 06/07/17 08:35 CCU Objective - Vital Signs / Intake & Output Vital Signs (Last 4 hours): Vital Signs Temp Pulse Resp BP Pulse Ox 06/07/17 00:00 99.2 F 89 22 97 06/06/17 23:51 99 H 25 H 154/57 H 99 06/06/17 23:00 94 H 27 H 98 06/06/17 22:43 91 H 19 155/66 H 98 06/06/17 22:37 20 06/06/17 22:21 90 26 H 155/59 H 97 06/06/17 22:00 98 H 25 H 150/57 L 89 L 06/06/17 21:00 96 H 27 H 98 06/06/17 20:46 95 H 26 H 137/63 97 06/06/17 20:44 94 H 24 150/57 L 99 06/06/17 20:34 24 Intake and Output (Last 8hrs): Intake & Output 06/06/17 06/06/17 06/07/17 14:59 22:59 06:59 Intake Total 0 50 Output Total 190 70 Balance -190 -20 Intake: Intake, IV Amount 50 Right Medial Port 50 Internal Jugular Oral 0 0 Output: Urine 190 70 Urethral (Saenz) 190 70 Other: # Bowel Movements 1 1 - Physical Exam Head: Positive for: Atraumatic, Normocephalic Pupils: Positive for: PERRL Extroacular Muscles: Positive for: EOMI Mouth: Positive for: Moist Mucous Membranes Respiratory/Chest: Positive for: Decreased Breath Sounds (at bases) Cardiovascular: Positive for: Regular Rate and Rhythm, Normal S1, S2 Abdomen: Positive for: Normal Bowel Sounds. Negative for: Tenderness Breast/Axillary: Positive for: Discoloration (ecchymosis left lower breast) Upper Extremity: Positive for: Edema, Swelling, Other (ecchymosis b/l; faint pulses bilaterally) Lower Extremity: Positive for: NORMAL PULSES Neurological: Positive for: GCS=15, Other (follows commands) Skin: Positive for: Other (Ecchymosis on bilateral upper extremities and left lower breast area) Psychiatric: Positive for: Alert - Medications Active Medications: Active Medications Generic Name Dose Route Start Last Admin Trade Name Freq PRN Reason Stop Dose Admin Acetylcysteine 4 ml 05/25/17 09:15 06/06/17 20:31 Acetylcysteine 20% INH 4 ml RQ6 [facility] Administration Albuterol/Ipratropium 3 ml 05/28/17 18:45 06/06/17 20:31 Duoneb 3 Mg/0.5 Mg (3 Ml) Ud INH 3 ml RQ6 [facility] Administration Calcium Acetate 667 mg 06/01/17 17:00 06/06/17 17:08 Phoslo PO Not Given TIDCC [facility] Diltiazem HCl 30 mg 05/26/17 12:00 06/06/17 23:34 Cardizem PO Not Given Q6H [facility] Dorzolamide HCl 10 ml 05/22/17 18:00 06/06/17 16:59 Trusopt OU 1 drop TID [facility] Administration Epoetin Ken 10,000 unit 06/05/17 09:00 06/05/17 12:00 Procrit IV 10,000 unit MWF [facility] Administration Ferric Sodium Gluconate Complex 125 mg 06/03/17 14:00 06/06/17 11:14 Ferrlecit IVPB 06/11/17 14:01 125 mg DAILY [facility] Administration Piperacillin Sod/Tazobactam Sod 2.25 gm in 50 mls @ 100 mls/hr 06/06/17 16:30 06/06/17 23:38 Zosyn 2.25 Gm Iv Premix IVPB 100 mls/hr Q8H [facility] Administration Montelukast Sodium 10 mg 05/23/17 10:00 06/06/17 10:36 Singulair PO Not Given DAILY [facility] Multivitamins 1 tab 05/22/17 13:45 06/06/17 10:37 Hexavitamin PO Not Given DAILY [facility] Nystatin 1 applic 05/27/17 10:30 06/06/17 17:00 Nystop Topical Powder TOP 1 pow TID [facility] Administration Pantoprazole Sodium 40 mg 06/06/17 11:00 06/06/17 14:02 Protonix Inj IVP 40 mg DAILY [facility] Administration - Patient Studies Lab Studies: Lab Studies 06/06/17 06/06/17 06/06/17 Range/Units 06:44 06:44 05:19 WBC 17.2 H (4.8-10.8) K/uL RBC 2.67 L (3.80-5.20) Mil/uL Hgb 7.6 L (11.0-16.0) g/dL Hct 23.5 L (34.0-47.0) % MCV 88.3 (81.0-99.0) fL MCH 28.4 (27.0-31.0) pg MCHC 32.1 L (33.0-37.0) g/dL RDW 16.7 H (11.5-14.5) % Plt Count 111 L (130-400) K/uL MPV 9.0 (7.2-11.7) fL Neut % (Auto) 86.3 H (50.0-75.0) % Lymph % (Auto) 7.3 L (20.0-40.0) % Gates % (Auto) 4.9 (0.0-10.0) % Eos % (Auto) 1.1 (0.0-4.0) % Baso % (Auto) 0.4 (0.0-2.0) % Neut # 14.8 H (1.8-7.0) K/uL Lymph # 1.3 (1.0-4.3) K/uL Gates # 0.8 (0.0-0.8) K/uL Eos # 0.2 (0.0-0.7) K/uL Baso # 0.1 (0.0-0.2) K/uL Neutrophils % (Manual) 83 H (50-75) % Band Neutrophils % 2 (0-2) % Lymphocytes % (Manual) 11 L (20-40) % Monocytes % (Manual) 4 (0-10) % Toxic Granulation Present Platelet Estimate Slightly decreased L (NORMAL) Large Platelets Present Polychromasia Slight Hypochromasia (manual) Slight Basophilic Stippling Slight Anisocytosis (manual) Slight Puncture Site Rr pCO2 50 H (35-45) mm/Hg pO2 230 H (80-100) mm/Hg HCO3 26.7 (21-28) mmol/L ABG pH 7.37 (7.35-7.45) ABG Total CO2 30.4 H (22-28) mmol/L ABG O2 Saturation 99.6 H (95-98) % ABG Base Excess 2.4 (-2.0-3.0) mmol/L ABG Hemoglobin 16.7 (11.7-17.4) g/dL ABG Carboxyhemoglobin 2.4 H (0.5-1.5) % POC ABG HHb (Measured) 0.4 (0.0-5.0) % ABG Methemoglobin 1.5 (0.0-3.0) % Sj Test Pos A-a O2 Difference 64.0 mm/Hg Respiratory Index 0.3 Hgb O2 Saturation 95.7 (95.0-98.0) % Vent Mode Bipap FiO2 50.0 % Inspiratory BiPAP 10 Expiratory BiPAP 5 Sodium 134 (132-148) mmol/L Potassium 3.7 (3.6-5.2) mmol/L Chloride 99 (98-107) mmol/L Carbon Dioxide 25 (22-30) mmol/L Anion Gap 14 (10-20) BUN 50 H (7-17) mg/dL Creatinine 3.3 H (0.7-1.2) MG/DL Est GFR ( Amer) 16 Est GFR (Non-Af Amer) 14 Random Glucose 77 (65-105) mg/dL Calcium 8.5 L (8.6-10.4) mg/dl Phosphorus 4.8 H (2.5-4.5) mg/dL Magnesium 2.3 (1.6-2.3) mg/dL Total Bilirubin 1.8 H (0.2-1.3) mg/dL AST 143 H (14-36) U/L ALT 79 H (9-52) U/L Alkaline Phosphatase 61 (38-126) U/L Total Protein 5.0 L (6.3-8.3) g/dL Albumin 2.8 L (3.5-5.0) g/dL Globulin 2.2 (2.2-3.9) gm/dL Albumin/Globulin Ratio 1.3 (1.0-2.1) Laboratory Results - last 24 hr 06/06/17 06/06/17 06/06/17 05:19 06:44 06:44 WBC 17.2 H RBC 2.67 L Hgb 7.6 L Hct 23.5 L MCV 88.3 MCH 28.4 MCHC 32.1 L RDW 16.7 H Plt Count 111 L MPV 9.0 Neut % (Auto) 86.3 H Lymph % (Auto) 7.3 L Gates % (Auto) 4.9 Eos % (Auto) 1.1 Baso % (Auto) 0.4 Neut # 14.8 H Lymph # 1.3 Gates # 0.8 Eos # 0.2 Baso # 0.1 Neutrophils % (Manual) 83 H Band Neutrophils % 2 Lymphocytes % (Manual) 11 L Monocytes % (Manual) 4 Toxic Granulation Present Platelet Estimate Slightly decreased L Large Platelets Present Polychromasia Slight Hypochromasia (manual) Slight Basophilic Stippling Slight Anisocytosis (manual) Slight Puncture Site Rr pCO2 50 H pO2 230 H HCO3 26.7 ABG pH 7.37 ABG Total CO2 30.4 H ABG O2 Saturation 99.6 H ABG Base Excess 2.4 ABG Hemoglobin 16.7 ABG Carboxyhemoglobin 2.4 H POC ABG HHb (Measured) 0.4 ABG Methemoglobin 1.5 Sj Test Pos A-a O2 Difference 64.0 Respiratory Index 0.3 Hgb O2 Saturation 95.7 Vent Mode Bipap FiO2 50.0 Inspiratory BiPAP 10 Expiratory BiPAP 5 Sodium 134 Potassium 3.7 Chloride 99 Carbon Dioxide 25 Anion Gap 14 BUN 50 H Creatinine 3.3 H Est GFR ( Amer) 16 Est GFR (Non-Af Amer) 14 Random Glucose 77 Calcium 8.5 L Phosphorus 4.8 H Magnesium 2.3 Total Bilirubin 1.8 H AST 143 H ALT 79 H Alkaline Phosphatase 61 Total Protein 5.0 L Albumin 2.8 L Globulin 2.2 Albumin/Globulin Ratio 1.3
[2017-06-07] MEDS: Albuterol-Ipratrop 3 mg / 0.5 (3 ml) UD INH SCH ×4 (01:42→20:01)
[2017-06-07] MEDS: Acetylcysteine 20% Inhal Soln (4ml) INH SCH ×2 (01:42→08:36)
[2017-06-07 06:09] LABS: BASO # 0.1 K/uL (0.0-0.2); BASO % 0.4 % (0.0-2.0); EOS # 0.2 K/uL (0.0-0.7); EOS % 1.4 % (0.0-4.0); HEMATOCRIT 23.7 % (34.0-47.0); LYMPH % 8.2 % (20.0-40.0); MEAN CELL VOLUME 89.2 fL (81.0-99.0); MEAN CORPUSCULAR HEMOGLOBIN 29.7 pg (27.0-31.0); MEAN CORPUSCULAR HGB CONC 33.3 g/dL (33.0-37.0); MEAN PLATELET VOLUME 8.7 fL (7.2-11.7); MONO # 0.7 K/uL (0.0-0.8); NRBC % 0.6 % (0.0-2.0); PLATELET COUNT 116 K/uL (130-400); RED CELL DISTRIBUTION WIDTH 16.4 % (11.5-14.5); WHITE BLOOD COUNT 11.9 K/uL (4.8-10.8)
[2017-06-07 06:27] LABS: ALB/GLOB RATIO 1.3 (1.0-2.1); BILIRUBIN,TOTAL 2.2 mg/dL (0.2-1.3); CALCIUM 8.3 mg/dl (8.6-10.4); MAGNESIUM 2.2 mg/dL (1.6-2.3); PHOSPHOROUS 4.5 mg/dL (2.5-4.5); POTASSIUM 3.6 mmol/L (3.6-5.2); TOTAL PROTEIN 5.3 g/dL (6.3-8.3)
--- NOTE | 2017-06-07 07:58 | CP.PCM.PN ---
Subjective - Date & Time of Evaluation Date of Evaluation: 06/06/17 Time of Evaluation: 18:55 - Subjective Subjective: Patient seen and evaluated Extubated and on BiPAP No cardiac events noted Physical examination - Head Exam Head Exam: ATRAUMATIC, NORMAL INSPECTION - Eye Exam Eye Exam: PERRL - ENT Exam ENT Exam: Mucous Membranes Moist - Neck Exam Neck Exam: Normal Inspection - Respiratory Exam Respiratory Exam: Decreased Breath Sounds - Cardiovascular Exam Cardiovascular Exam: Irregular Rhythm, +S1, +S2 - GI/Abdominal Exam GI & Abdominal Exam: Normal Bowel Sounds - Skin Skin Exam: Warm Objective - Vital Signs/Intake and Output Vital Signs (last 24 hours): Temp Pulse Resp BP Pulse Ox 99 F 79 30 H 151/61 H 96 06/07/17 04:00 06/07/17 07:00 06/07/17 07:00 06/07/17 06:35 06/07/17 07:00 Intake and Output: 06/07/17 06/07/17 06:59 18:59 Intake Total 50 Output Total 215 20 Balance -165 -20 - Medications Medications: Current Medications Acetylcysteine (Acetylcysteine 20%) 4 ml INH RQ6 [facility] Last Admin: 06/07/17 01:42 Dose: 4 ml Albuterol/Ipratropium (Duoneb 3 Mg/0.5 Mg (3 Ml) Ud) 3 ml INH RQ6 [facility] Last Admin: 06/07/17 01:42 Dose: 3 ml Calcium Acetate (Phoslo) 667 mg PO TIDCC [facility] Last Admin: 06/06/17 17:08 Dose: Not Given Diltiazem HCl (Cardizem) 30 mg PO Q6H [facility] Last Admin: 06/07/17 06:22 Dose: Not Given Dorzolamide HCl (Trusopt) 10 ml OU TID [facility] Last Admin: 06/06/17 16:59 Dose: 1 drop Epoetin Ken (Procrit) 10,000 unit IV MWF [facility] Last Admin: 06/05/17 12:00 Dose: 10,000 unit Ferric Sodium Gluconate Complex (Ferrlecit) 125 mg IVPB DAILY [facility] Stop: 06/11/17 14:01 Last Admin: 06/06/17 11:14 Dose: 125 mg Piperacillin Sod/Tazobactam Sod (Zosyn 2.25 Gm Iv Premix) 2.25 gm in 50 mls @ 100 mls/hr IVPB Q8H [facility] Last Admin: 06/06/17 23:38 Dose: 100 mls/hr Montelukast Sodium (Singulair) 10 mg PO DAILY [facility] Last Admin: 06/06/17 10:36 Dose: Not Given Multivitamins (Hexavitamin) 1 tab PO DAILY [facility] Last Admin: 06/06/17 10:37 Dose: Not Given Nystatin (Nystop Topical Powder) 1 applic TOP TID [facility] Last Admin: 06/06/17 17:00 Dose: 1 pow Pantoprazole Sodium (Protonix Inj) 40 mg IVP DAILY [facility] Last Admin: 06/06/17 14:02 Dose: 40 mg - Labs Labs: 06/07/17 06:02 06/07/17 06:02 PT 12.4 SECONDS (9.7-12.2) H 06/03/17 17:53 INR 1.1 06/03/17 17:53 APTT 27 SECONDS (21-34) 06/03/17 17:53 Assessment and Plan - Assessment and Plan (Free Text) Assessment: (1) Acute respiratory failure with hypoxia and hypercapnia 06/06: Now extubated, was doing ok with nasal canula. I had a long discussion with the patient's son at bedside. 06/04: currently on CPAP settings 06/03: Remains intubated. Now off pressor medications. Had 1.5 L removed yesterday 06/02: Remains intubated, on IV pressor medications. Blood pressure better now. There are plans for HD to see if this can help remove fluid from lungs 06/01 Now re-intubated after patient became hypoxcic 05/30: Currently on weaning trial. 05/29: Currently patient remains on mechanical ventilator. Review of the blood gases show no longer acidemic or CO2 retaining. Hopefully can be weaned soon. Likey complications from CO2 and CHF as well as pneumonia. (2) Pneumonia - questionable area on the right lower lobe seen on CT done on 06/06: Renewed the IV Zosyn. 06/05: Further decrease om WBC.no fevers or chills 06/04: Decrease WBC today, 21 06/03: The WBC decreased to 25, Continued on Zyvox and Zosyn 06/02: Signifigtanly elevated WBC. Now changed to Zyvox and Zosyn IV 05/30: WBC is only decreased slightly. There is still large left shift. Afebrile. IV Zosyn started on 05/26 and IV Vanco started 05/27. 05/29: Remains on IV abx Zosyn and Vancomycin - the WBC is 14. Currently afebrile and also blood and sputum cultures are negative (3) Acute on chronic kidney injury, renal failure has femoral access. 06/06: Again had HD this morning. Urine outs were 500 yesterday and the output is 200 today 06/05: Again urine out put in the 390s. Might be getting HD again soon 06/04: Urine output yesterday 390 ml 06/03: Yesterday had permacath placed 1.5 L removed 06/02: There are plans for HD to be started (4) COPD exacerbation 05/29: On nebulizers and twice a day solumedrol (5) Atrial fibrillation, new onset 06/06: Stable at this time. No runs of RVR seen on telemetry. 06/05: Remains in atrial fibrillation. HR on telemetry was stable. Not on anticogulation due to anemia 06/03: Again anemia Hgb now 6.9. Has had a total of 3 units of PRBC, lovenox on hold, positive occult 06/02: Because of the anemia has been off lovenox. 05/30: HR has been in the 90s atrial fibrillation. Rate controlled now. Continue Cardizem by mouth for rate control. Patient is on therapeutic anticoagulation with Lovenox as there is a high CHADs score (6) CHF (congestive heart failure) 06/06: Moderate venous congestion as well as small blateral pleural effusions seen on film. She is getting HD to remove excess fluid. 05/29: Continue following CXRAYs, urine ins and outs. Patient is getting lasix BID and also is on vasotech. (7) History of hyperlipidemia
[2017-06-07] MEDS: Piperacill/Tazo 2.25gm in Dex 2.25 GM/50 ML BAG IVPB SCH ×3 (08:09→23:30)
[2017-06-07 08:22] LABS: BASOPHIL 1 % (0-2); NEUTROPHIL 84 % (50-75); NUCLEATED RED BLOOD CELL 1 % (0-0); TOTAL CELLS COUNTED 100
[2017-06-07] MEDS: Multiple Vitamins Tab PO SCH (09:46)
[2017-06-07] MEDS: Dorzolamide 2% Opht Sol 10ml OU SCH ×3 (09:46→17:08)
[2017-06-07] MEDS: Ferric Sodium Gluconat Complex 62.5 mg/5 ml Vial IVPB SCH (09:51)
--- NOTE | 2017-06-07 12:19 | CP.PCM.PN ---
Subjective - Date & Time of Evaluation Date of Evaluation: 06/07/17 Time of Evaluation: 12:10 - Subjective Subjective: Patient was seen and examined. No acute events from yesterday night. Per review of monitor tech the patient is in a slow atrial fibrillation with HR in the 70s to 80s. Currently on vapotherm high flow at this time. The Hgb is 7,9 which isn't changed from previous. As mentioned previously was on lovenox for the newly found atrial fibrillation and this had to be stopped The WBC did decrease to 11.6. Remains on IV abx Zosyn at this time. Urine out put was 475 total yesterday. Family not present this morning, however I did have a long conversation with her son yesterday at bedside. Objective - Vital Signs/Intake and Output Vital Signs (last 24 hours): Temp Pulse Resp BP Pulse Ox 99.2 F 89 26 H 123/60 99 06/07/17 08:00 06/07/17 11:00 06/07/17 11:00 06/07/17 10:36 06/07/17 11:00 Intake and Output: 06/07/17 06/07/17 06:59 18:59 Intake Total 50 150 Output Total 215 75 Balance -165 75 - Medications Medications: Current Medications Albuterol/Ipratropium (Duoneb 3 Mg/0.5 Mg (3 Ml) Ud) 3 ml INH RQ6 [facility] Last Admin: 06/07/17 08:36 Dose: 3 ml Calcium Acetate (Phoslo) 667 mg PO TIDCC [facility] Last Admin: 06/07/17 08:07 Dose: Not Given Diltiazem HCl (Cardizem) 30 mg PO Q6H [facility] Last Admin: 06/07/17 06:22 Dose: Not Given Dorzolamide HCl (Trusopt) 10 ml OU TID [facility] Last Admin: 06/07/17 09:46 Dose: 1 drop Epoetin Ken (Procrit) 10,000 unit IV MWF [facility] Last Admin: 06/05/17 12:00 Dose: 10,000 unit Ferric Sodium Gluconate Complex (Ferrlecit) 125 mg IVPB DAILY [facility] Stop: 06/11/17 14:01 Last Admin: 06/07/17 09:51 Dose: 125 mg Piperacillin Sod/Tazobactam Sod (Zosyn 2.25 Gm Iv Premix) 2.25 gm in 50 mls @ 100 mls/hr IVPB Q8H [facility] Last Admin: 06/07/17 08:09 Dose: 100 mls/hr Montelukast Sodium (Singulair) 10 mg PO DAILY [facility] Last Admin: 06/07/17 09:46 Dose: Not Given Multivitamins (Hexavitamin) 1 tab PO DAILY [facility] Last Admin: 06/07/17 09:46 Dose: Not Given Nystatin (Nystop Topical Powder) 1 applic TOP TID [facility] Last Admin: 06/07/17 09:47 Dose: 1 pow Pantoprazole Sodium (Protonix Inj) 40 mg IVP DAILY [facility] Last Admin: 06/07/17 09:42 Dose: 40 mg - Labs Labs: 06/07/17 06:02 06/07/17 06:02 PT 12.4 SECONDS (9.7-12.2) H 06/03/17 17:53 INR 1.1 06/03/17 17:53 APTT 27 SECONDS (21-34) 06/03/17 17:53 - Constitutional Appears: Older Than Stated Age, Confused, Chronically Ill - Eye Exam Eye Exam: EOMI - ENT Exam ENT Exam: Mucous Membranes Moist - Respiratory Exam Respiratory Exam: Decreased Breath Sounds, Rhonchi - Cardiovascular Exam Cardiovascular Exam: Irregular Rhythm. absent: Murmur - GI/Abdominal Exam GI & Abdominal Exam: Distended, Soft. absent: Firm, Guarding, Rigid, Tenderness - Extremities Exam Additional comments: Ecymosis on arms - Neurological Exam Neurological Exam: Alert, Altered, Awake Neuro motor strength exam: Left Upper Extremity: 4, Right Upper Extremity: 4 - Psychiatric Exam Psychiatric exam: Depressed, Flat Affect - Skin Skin Exam: Pallor, Pallor, Warm Assessment and Plan - Assessment and Plan (Free Text) Assessment: (1) Acute respiratory failure with hypoxia and hypercapnia 06/07: Currently on vapotherm high flow oxygen. 06/06: Now extubated, was doing ok with nasal canula. I had a long discussion with the patient's son at bedside. 06/04: currently on CPAP settings 06/03: Remains intubated. Now off pressor medications. Had 1.5 L removed yesterday 06/02: Remains intubated, on IV pressor medications. Blood pressure better now. There are plans for HD to see if this can help remove fluid from lungs 06/01 Now re-intubated after patient became hypoxcic 05/30: Currently on weaning trial. 05/29: Currently patient remains on mechanical ventilator. Review of the blood gases show no longer acidemic or CO2 retaining. Hopefully can be weaned soon. Likey complications from CO2 and CHF as well as pneumonia. (2) Pneumonia - questionable area on the right lower lobe seen on CT done on 06/07: WBC decreased to 11, remains on Zosyn. Afebrile 06/06: Renewed the IV Zosyn. 06/05: Further decrease om WBC.no fevers or chills 06/04: Decrease WBC today, 21 06/03: The WBC decreased to 25, Continued on Zyvox and Zosyn 06/02: Signifigtanly elevated WBC. Now changed to Zyvox and Zosyn IV 05/30: WBC is only decreased slightly. There is still large left shift. Afebrile. IV Zosyn started on 05/26 and IV Vanco started 05/27. 05/29: Remains on IV abx Zosyn and Vancomycin - the WBC is 14. Currently afebrile and also blood and sputum cultures are negative (3) Acute on chronic kidney injury, renal failure has femoral access. 06/07: No HD today. Urine outs were 475 06/06: Again had HD this morning. Urine outs were 500 yesterday and the output is 200 today 06/05: Again urine out put in the 390s. Might be getting HD again soon 06/04: Urine output yesterday 390 ml 06/03: Yesterday had permacath placed 1.5 L removed 06/02: There are plans for HD to be started (4) COPD exacerbation 05/29: On nebulizers and twice a day solumedrol (5) Atrial fibrillation, new onset 06/06: Stable at this time. No runs of RVR seen on telemetry. 06/05: Remains in atrial fibrillation. HR on telemetry was stable. Not on anticogulation due to anemia 06/03: Again anemia Hgb now 6.9. Has had a total of 3 units of PRBC, lovenox on hold, positive occult 06/02: Because of the anemia has been off lovenox. 05/30: HR has been in the 90s atrial fibrillation. Rate controlled now. Continue Cardizem by mouth for rate control. Patient is on therapeutic anticoagulation with Lovenox as there is a high CHADs score (6) CHF (congestive heart failure) 06/06: Moderate venous congestion as well as small blateral pleural effusions seen on film. She is getting HD to remove excess fluid. 05/29: Continue following CXRAYs, urine ins and outs. Patient is getting lasix BID and also is on vasotech. (7) History of hyperlipidemia
--- NOTE | 2017-06-07 21:16 | CP.PCM.PN ---
Subjective - Date & Time of Evaluation Date of Evaluation: 06/07/17 Time of Evaluation: 08:00 - Subjective Subjective: Patient seen and evaluated No chest pain Improved breathing Physical examination - Head Exam Head Exam: ATRAUMATIC, NORMAL INSPECTION - Eye Exam Eye Exam: PERRL - ENT Exam ENT Exam: Mucous Membranes Moist - Neck Exam Neck Exam: Normal Inspection - Respiratory Exam Respiratory Exam: Decreased Breath Sounds - Cardiovascular Exam Cardiovascular Exam: Irregular Rhythm, +S1, +S2 - GI/Abdominal Exam GI & Abdominal Exam: Normal Bowel Sounds - Skin Skin Exam: Warm Objective - Vital Signs/Intake and Output Vital Signs (last 24 hours): Temp Pulse Resp BP Pulse Ox 98.6 F 79 30 H 142/67 98 06/07/17 20:00 06/07/17 21:00 06/07/17 21:00 06/07/17 20:55 06/07/17 21:00 Intake and Output: 06/07/17 06/08/17 18:59 06:59 Intake Total 320 Output Total 220 20 Balance 100 -20 - Medications Medications: Current Medications Albuterol/Ipratropium (Duoneb 3 Mg/0.5 Mg (3 Ml) Ud) 3 ml INH RQ6 [facility] Last Admin: 06/07/17 20:01 Dose: 3 ml Calcium Acetate (Phoslo) 667 mg PO TIDCC [facility] Last Admin: 06/07/17 17:08 Dose: 667 mg Diltiazem HCl (Cardizem) 30 mg PO Q6H [facility] Last Admin: 06/07/17 17:08 Dose: 30 mg Dorzolamide HCl (Trusopt) 10 ml OU TID [facility] Last Admin: 06/07/17 17:08 Dose: 1 drop Epoetin Ken (Procrit) 10,000 unit IV MWF [facility] Last Admin: 06/05/17 12:00 Dose: 10,000 unit Ferric Sodium Gluconate Complex (Ferrlecit) 125 mg IVPB DAILY [facility] Stop: 06/11/17 14:01 Last Admin: 06/07/17 09:51 Dose: 125 mg Piperacillin Sod/Tazobactam Sod (Zosyn 2.25 Gm Iv Premix) 2.25 gm in 50 mls @ 100 mls/hr IVPB Q8H [facility] Last Admin: 06/07/17 15:56 Dose: 100 mls/hr Montelukast Sodium (Singulair) 10 mg PO DAILY [facility] Last Admin: 06/07/17 09:46 Dose: Not Given Multivitamins (Hexavitamin) 1 tab PO DAILY [facility] Last Admin: 06/07/17 09:46 Dose: Not Given Nystatin (Nystop Topical Powder) 1 applic TOP TID [facility] Last Admin: 06/07/17 17:08 Dose: 1 pow Pantoprazole Sodium (Protonix Inj) 40 mg IVP DAILY [facility] Last Admin: 06/07/17 09:42 Dose: 40 mg - Labs Labs: 06/07/17 06:02 06/07/17 06:02 PT 12.4 SECONDS (9.7-12.2) H 06/03/17 17:53 INR 1.1 06/03/17 17:53 APTT 27 SECONDS (21-34) 06/03/17 17:53 Assessment and Plan - Assessment and Plan (Free Text) Assessment: (1) Acute respiratory failure with hypoxia and hypercapnia 06/07: Currently on vapotherm high flow oxygen. 06/06: Now extubated, was doing ok with nasal canula. I had a long discussion with the patient's son at bedside. 06/04: currently on CPAP settings 06/03: Remains intubated. Now off pressor medications. Had 1.5 L removed yesterday 06/02: Remains intubated, on IV pressor medications. Blood pressure better now. There are plans for HD to see if this can help remove fluid from lungs 06/01 Now re-intubated after patient became hypoxcic 05/30: Currently on weaning trial. 05/29: Currently patient remains on mechanical ventilator. Review of the blood gases show no longer acidemic or CO2 retaining. Hopefully can be weaned soon. Likey complications from CO2 and CHF as well as pneumonia. (2) Pneumonia - questionable area on the right lower lobe seen on CT done on 06/07: WBC decreased to 11, remains on Zosyn. Afebrile 06/06: Renewed the IV Zosyn. 06/05: Further decrease om WBC.no fevers or chills 06/04: Decrease WBC today, 21 06/03: The WBC decreased to 25, Continued on Zyvox and Zosyn 06/02: Signifigtanly elevated WBC. Now changed to Zyvox and Zosyn IV 05/30: WBC is only decreased slightly. There is still large left shift. Afebrile. IV Zosyn started on 05/26 and IV Vanco started 05/27. 05/29: Remains on IV abx Zosyn and Vancomycin - the WBC is 14. Currently afebrile and also blood and sputum cultures are negative (3) Acute on chronic kidney injury, renal failure has femoral access. 06/07: No HD today. Urine outs were 475 06/06: Again had HD this morning. Urine outs were 500 yesterday and the output is 200 today 06/05: Again urine out put in the 390s. Might be getting HD again soon 06/04: Urine output yesterday 390 ml 06/03: Yesterday had permacath placed 1.5 L removed 06/02: There are plans for HD to be started (4) COPD exacerbation 05/29: On nebulizers and twice a day solumedrol (5) Atrial fibrillation, new onset 06/06: Stable at this time. No runs of RVR seen on telemetry. 06/05: Remains in atrial fibrillation. HR on telemetry was stable. Not on anticogulation due to anemia 06/03: Again anemia Hgb now 6.9. Has had a total of 3 units of PRBC, lovenox on hold, positive occult 06/02: Because of the anemia has been off lovenox. 05/30: HR has been in the 90s atrial fibrillation. Rate controlled now. Continue Cardizem by mouth for rate control. Patient is on therapeutic anticoagulation with Lovenox as there is a high CHADs score (6) CHF (congestive heart failure) 06/06: Moderate venous congestion as well as small blateral pleural effusions seen on film. She is getting HD to remove excess fluid. 05/29: Continue following CXRAYs, urine ins and outs. Patient is getting lasix BID and also is on vasotech. (7) History of hyperlipidemia
[2017-06-08] MEDS: Albuterol-Ipratrop 3 mg / 0.5 (3 ml) UD INH SCH ×4 (01:13→20:31)
[2017-06-08 06:40] LABS: BASO % 0.5 % (0.0-2.0); EOS # 0.2 K/uL (0.0-0.7); EOS % 1.6 % (0.0-4.0); HEMATOCRIT 24.8 % (34.0-47.0); LYMPH # 0.7 K/uL (1.0-4.3); LYMPH % 7.1 % (20.0-40.0); MEAN CELL VOLUME 90.3 fL (81.0-99.0); MEAN CORPUSCULAR HEMOGLOBIN 30.1 pg (27.0-31.0); MEAN CORPUSCULAR HGB CONC 33.3 g/dL (33.0-37.0); MEAN PLATELET VOLUME 8.3 fL (7.2-11.7); MONO # 0.7 K/uL (0.0-0.8); MONO % 6.9 % (0.0-10.0); NRBC % 0.8 % (0.0-2.0); PLATELET COUNT 130 K/uL (130-400); RED CELL DISTRIBUTION WIDTH 16.3 % (11.5-14.5); WHITE BLOOD COUNT 9.8 K/uL (4.8-10.8)
[2017-06-08 08:11] LABS: MYELOCYTE 1 % (0-0); NEUTROPHIL 79 % (50-75); NUCLEATED RED BLOOD CELL 2 % (0-0); TOTAL CELLS COUNTED 100
[2017-06-08 08:21] LABS: POTASSIUM 3.8 mmol/L (3.6-5.2)
[2017-06-08 08:23] LABS: ALB/GLOB RATIO 1.1 (1.0-2.1)
[2017-06-08 08:24] LABS: MAGNESIUM 2.3 mg/dL (1.6-2.3); PHOSPHOROUS 5.5 mg/dL (2.5-4.5)
--- NOTE | 2017-06-08 08:33 | CP.PCM.PN ---
<VipulGena - Last Filed: 06/08/17 18:33> Subjective - Date & Time of Evaluation Date of Evaluation: 06/08/17 Time of Evaluation: 10:35 - Subjective Subjective: Cardiology Progress Note- Dr. Hart's service Pt seen and examined in no apparent distress. Per nursing, patient had increased ecchymosis over the past few days and thus lovenox was stopped. Patient currently receiving hemodialysis. Patient sleeping and minimally responsive to ROS. Objective - Vital Signs/Intake and Output Vital Signs (last 24 hours): Temp Pulse Resp BP Pulse Ox 98.5 F 81 20 169/67 H 99 06/08/17 04:00 06/08/17 07:00 06/08/17 08:27 06/08/17 06:54 06/08/17 07:00 Intake and Output: 06/08/17 06/08/17 06:59 18:59 Intake Total 50 Output Total 340 20 Balance -290 -20 - Medications Medications: Current Medications Albuterol/Ipratropium (Duoneb 3 Mg/0.5 Mg (3 Ml) Ud) 3 ml INH RQ6 [facility] Last Admin: 06/08/17 08:21 Dose: 3 ml Calcium Acetate (Phoslo) 667 mg PO TIDCC [facility] Last Admin: 06/07/17 17:08 Dose: 667 mg Diltiazem HCl (Cardizem) 30 mg PO Q6H [facility] Last Admin: 06/08/17 05:05 Dose: 30 mg Dorzolamide HCl (Trusopt) 10 ml OU TID [facility] Last Admin: 06/07/17 17:08 Dose: 1 drop Epoetin Ken (Procrit) 10,000 unit IV MWF [facility] Last Admin: 06/05/17 12:00 Dose: 10,000 unit Ferric Sodium Gluconate Complex (Ferrlecit) 125 mg IVPB DAILY [facility] Stop: 06/11/17 14:01 Last Admin: 06/07/17 09:51 Dose: 125 mg Piperacillin Sod/Tazobactam Sod (Zosyn 2.25 Gm Iv Premix) 2.25 gm in 50 mls @ 100 mls/hr IVPB Q8H [facility] Last Admin: 06/07/17 23:30 Dose: 100 mls/hr Montelukast Sodium (Singulair) 10 mg PO DAILY [facility] Last Admin: 06/07/17 09:46 Dose: Not Given Multivitamins (Hexavitamin) 1 tab PO DAILY [facility] Last Admin: 06/07/17 09:46 Dose: Not Given Nystatin (Nystop Topical Powder) 1 applic TOP TID [facility] Last Admin: 06/07/17 17:08 Dose: 1 pow Pantoprazole Sodium (Protonix Inj) 40 mg IVP DAILY [facility] Last Admin: 06/07/17 09:42 Dose: 40 mg - Labs Labs: 06/08/17 06:36 06/08/17 06:36 PT 12.4 SECONDS (9.7-12.2) H 06/03/17 17:53 INR 1.1 06/03/17 17:53 APTT 27 SECONDS (21-34) 06/03/17 17:53 - Constitutional Appears: Non-toxic, No Acute Distress - Head Exam Head Exam: ATRAUMATIC, NORMAL INSPECTION, NORMOCEPHALIC - Eye Exam Eye Exam: EOMI, Normal appearance, PERRL Pupil Exam: NORMAL ACCOMODATION, PERRL - ENT Exam ENT Exam: Mucous Membranes Moist - Neck Exam Neck Exam: Full ROM - Respiratory Exam Respiratory Exam: NORMAL BREATHING PATTERN - Cardiovascular Exam Cardiovascular Exam: Irregular Rhythm, +S1, +S2 - GI/Abdominal Exam GI & Abdominal Exam: Soft - Exam Additional comments: hunt in place - Extremities Exam Extremities Exam: Full ROM - Back Exam Back Exam: Full ROM - Neurological Exam Neurological Exam: Alert, Awake, Oriented x3 - Psychiatric Exam Psychiatric exam: Normal Affect, Normal Mood - Skin Skin Exam: Dry, Warm Additional comments: ecchymosis noted on bilateral arms Assessment and Plan (1) Atrial fibrillation, new onset Assessment & Plan: Rate controlled on Diltiazem CHADs Score of 5- Patient off Lovenox due to anemia and new onset ecchymosis. Will continue to monitor. On Ferrlecit for Anemia Status: Acute (2) CHF (congestive heart failure) Assessment & Plan: Last CXR: Moderate venous congestion as well as small bilateral pleural effusions seen on film. Received HD today and thus improvement noted. EF 57.8% Cont to monitor on Lasix PRN Status: Acute (3) Elevated troponin Assessment & Plan: On admission elevated; likely secondary to then CHF exacerbation Cont to monitor Status: Acute (4) Prophylactic measure Assessment & Plan: Anticoagulation held due to new onset ecchymosis with anemia Protonix 40 mg IV Status: Acute <Ish Hart - Last Filed: 06/08/17 21:45> Objective - Vital Signs/Intake and Output Vital Signs (last 24 hours): Temp Pulse Resp BP Pulse Ox 99.2 F 82 31 H 159/63 H 98 06/08/17 20:00 06/08/17 21:00 06/08/17 21:00 06/08/17 20:45 06/08/17 21:00 Intake and Output: 06/08/17 06/09/17 18:59 06:59 Intake Total 550 Output Total 200 Balance 350 - Medications Medications: Current Medications Albuterol/Ipratropium (Duoneb 3 Mg/0.5 Mg (3 Ml) Ud) 3 ml INH RQ6 [facility] Last Admin: 06/08/17 20:31 Dose: 3 ml Calcium Acetate (Phoslo) 667 mg PO TIDCC [facility] Last Admin: 06/08/17 17:58 Dose: 667 mg Diltiazem HCl (Cardizem) 30 mg PO Q6H [facility] Last Admin: 06/08/17 17:58 Dose: 30 mg Dorzolamide HCl (Trusopt) 10 ml OU TID [facility] Last Admin: 06/08/17 17:59 Dose: 1 drop Epoetin Ken (Procrit) 10,000 unit IV MWF [facility] Last Admin: 06/08/17 10:57 Dose: 10,000 unit Ferric Sodium Gluconate Complex (Ferrlecit) 125 mg IVPB DAILY [facility] Stop: 06/11/17 14:01 Last Admin: 06/08/17 14:35 Dose: 125 mg Montelukast Sodium (Singulair) 10 mg PO DAILY [facility] Last Admin: 06/08/17 14:34 Dose: 10 mg Multivitamins (Hexavitamin) 1 tab PO DAILY [facility] Last Admin: 06/08/17 14:34 Dose: 1 tab Nystatin (Nystop Topical Powder) 1 applic TOP TID [facility] Last Admin: 06/08/17 17:59 Dose: 1 pow Pantoprazole Sodium (Protonix Inj) 40 mg IVP DAILY [facility] Last Admin: 06/08/17 14:35 Dose: 40 mg - Labs Labs: 06/08/17 06:36 06/08/17 06:36 PT 12.4 SECONDS (9.7-12.2) H 06/03/17 17:53 INR 1.1 06/03/17 17:53 APTT 27 SECONDS (21-34) 06/03/17 17:53 Assessment and Plan - Assessment and Plan (Free Text) Assessment: Patient seen and evaluated with the medical imaging technician Plan fo care discussed and documented as above
--- NOTE | 2017-06-08 08:53 | VASCLAB ---
PROCEDURE: Upper Extremity Venous Duplex Exam HISTORY: Swelling PRIORS: None. TECHNIQUE: Bilateral upper extremity, internal jugular, subclavian, axillary, brachial, ulnar, radial, basilic and upper cephalic veins were evaluated. Flow was assessed with color Doppler, compressibility, assessment of phasic flow and augmentation response. Report prepared by PASTOR Condon FINDINGS: RIGHT: 1. Internal Jugular: 1.1. Not identified. 2. Subclavian: 2.1. Compressibility - Fully compressible: Thrombus - None : Flow - Phasic: Augmentation -Normal: Reflux - None. 3. Axillary: 3.1. Compressibility - Fully compressible: Thrombus - None : Flow - Phasic: Augmentation -Normal: Reflux - None. 4. Brachial: 4.1. Compressibility - Fully compressible: Thrombus - None: Flow - Phasic: Augmentation -Normal: Reflux - None. 5. Ulnar: 5.1. Not visible 6. Radial: 6.1. Not visible 7. Cephalic: 7.1. Compressibility - Fully compressible: Thrombus - None: Flow - Phasic: Augmentation -Normal: Reflux - None. 8. Basilic: 8.1. Not visible LEFT: 1. Internal Jugular: 1.1. Not identified 2. Subclavian: 2.1. Not visible 3. Axillary: 3.1. Not visible 4. Brachial: 4.1. Not visible 5. Ulnar: 5.1. Not visible 6. Radial: 6.1. Not visible 7. Cephalic: 7.1. Not visible 8. Basilic: 8.1. Not visible OTHER FINDINGS: Right: None. Left: None. IMPRESSION: Right: No evidence of venous thrombosis of the right subclavian, axillary, brachial and upper cephalic veins. Limited exam of the right upper extremity due to swelling. The right internal jugular vein could not be identified. Left: The left internal jugular vein could not be identified. Unable to visualize the remaining veins in the left upper extremity, due to severe swelling.
[2017-06-08] MEDS: EPOETIN ALFA 10,000 UNIT/ML ML IV SCH (10:57)
--- NOTE | 2017-06-08 11:27 | CP.CCUPN ---
CCU Subjective - Physician Review Subjective (Free Text): 06/08/17 11:38 Patient was seen and examined at bedside. Patient is currently on nasal cannula , easily arousable and responds to verbal stimuli. Full ROS could not be properly evaluated as patient responded poorly. Patient is tolerating modified consistency diet (Purred and nectar thick) CCU Objective - Vital Signs / Intake & Output Vital Signs (Last 4 hours): Vital Signs Temp Pulse Resp BP 06/08/17 11:23 28 H 06/08/17 10:15 97.5 F L 78 28 H 153/57 H 06/08/17 08:27 20 Intake and Output (Last 8hrs): Intake & Output 06/07/17 06/08/17 06/08/17 22:59 06:59 14:59 Intake Total 120 50 Output Total 190 230 20 Balance -70 -180 -20 Weight 254 lb Intake: Intake, IV Amount 50 50 Right Distal Port 50 50 Internal Jugular Oral 70 Output: Urine 190 230 20 Urethral (Saenz) 190 230 20 - Physical Exam Head: Positive for: Atraumatic, Normocephalic Pupils: Positive for: PERRL Extroacular Muscles: Positive for: EOMI Mouth: Positive for: Moist Mucous Membranes Respiratory/Chest: Positive for: Rales Cardiovascular: Positive for: Regular Rate and Rhythm, Normal S1, S2 Abdomen: Positive for: Normal Bowel Sounds. Negative for: Tenderness Breast/Axillary: Positive for: Discoloration (ecchymosis left lower breast) Upper Extremity: Positive for: Edema, Swelling, Other (ecchymosis b/l; faint pulses bilaterally). Negative for: Normal Inspection (B/L upper extremities ecchymosis ) Lower Extremity: Positive for: NORMAL PULSES Neurological: Positive for: GCS=15, Other (follows commands) Skin: Positive for: Other (Ecchymosis on bilateral upper extremities and left lower breast area) Psychiatric: Positive for: Alert - Medications Active Medications: Active Medications Generic Name Dose Route Start Last Admin Trade Name Freq PRN Reason Stop Dose Admin Albuterol/Ipratropium 3 ml 05/28/17 18:45 06/08/17 08:21 Duoneb 3 Mg/0.5 Mg (3 Ml) Ud INH 3 ml RQ6 ALISA Administration Calcium Acetate 667 mg 06/01/17 17:00 06/07/17 17:08 Phoslo PO 667 mg TIDCC ALISA Administration Diltiazem HCl 30 mg 05/26/17 12:00 06/08/17 05:05 Cardizem PO 30 mg Q6H ALISA Administration Dorzolamide HCl 10 ml 05/22/17 18:00 06/07/17 17:08 Trusopt OU 1 drop TID ALISA Administration Epoetin Ken 10,000 unit 06/05/17 09:00 06/08/17 10:57 Procrit IV 10,000 unit MWF ALISA Administration Ferric Sodium Gluconate Complex 125 mg 06/03/17 14:00 06/07/17 09:51 Ferrlecit IVPB 06/11/17 14:01 125 mg DAILY ALISA Administration Piperacillin Sod/Tazobactam Sod 2.25 gm in 50 mls @ 100 mls/hr 06/06/17 16:30 06/07/17 23:30 Zosyn 2.25 Gm Iv Premix IVPB 100 mls/hr Q8H ALISA Administration Montelukast Sodium 10 mg 05/23/17 10:00 06/07/17 09:46 Singulair PO Not Given DAILY ALISA Multivitamins 1 tab 05/22/17 13:45 06/07/17 09:46 Hexavitamin PO Not Given DAILY ALISA Nystatin 1 applic 05/27/17 10:30 06/07/17 17:08 Nystop Topical Powder TOP 1 pow TID ALISA Administration Pantoprazole Sodium 40 mg 06/06/17 11:00 06/07/17 09:42 Protonix Inj IVP 40 mg DAILY ALISA Administration - Patient Studies Lab Studies: Lab Studies 06/08/17 06/08/17 Range/Units 06:36 06:36 WBC 9.8 (4.8-10.8) K/uL RBC 2.75 L (3.80-5.20) Mil/uL Hgb 8.3 L (11.0-16.0) g/dL Hct 24.8 L (34.0-47.0) % MCV 90.3 (81.0-99.0) fL MCH 30.1 (27.0-31.0) pg MCHC 33.3 (33.0-37.0) g/dL RDW 16.3 H (11.5-14.5) % Plt Count 130 (130-400) K/uL MPV 8.3 (7.2-11.7) fL Neut % (Auto) 83.9 H (50.0-75.0) % Lymph % (Auto) 7.1 L (20.0-40.0) % [place] % (Auto) 6.9 (0.0-10.0) % Eos % (Auto) 1.6 (0.0-4.0) % Baso % (Auto) 0.5 (0.0-2.0) % Neut # 8.3 H (1.8-7.0) K/uL Lymph # 0.7 L (1.0-4.3) K/uL [place] # 0.7 (0.0-0.8) K/uL Eos # 0.2 (0.0-0.7) K/uL Baso # 0.0 (0.0-0.2) K/uL Neutrophils % (Manual) 79 H (50-75) % Band Neutrophils % 3 H (0-2) % Lymphocytes % (Manual) 10 L (20-40) % Monocytes % (Manual) 7 (0-10) % Myelocytes % 1 H (0-0) % Nucleated RBC % 2 H (0-0) % Platelet Estimate Normal (NORMAL) Basophilic Stippling Slight Anisocytosis (manual) Slight Sodium 143 (132-148) mmol/L Potassium 3.8 (3.6-5.2) mmol/L Chloride 105 (98-107) mmol/L Carbon Dioxide 25 (22-30) mmol/L Anion Gap 17 (10-20) BUN 60 H (7-17) mg/dL Creatinine 3.4 H (0.7-1.2) MG/DL Est GFR ( Amer) 16 Est GFR (Non-Af Amer) 13 Random Glucose 82 (65-105) mg/dL Calcium 9.0 (8.6-10.4) mg/dl Phosphorus 5.5 H (2.5-4.5) mg/dL Magnesium 2.3 (1.6-2.3) mg/dL Total Bilirubin 2.0 H (0.2-1.3) mg/dL AST 112 H (14-36) U/L ALT 92 H (9-52) U/L Alkaline Phosphatase 73 (38-126) U/L Total Protein 6.0 L (6.3-8.3) g/dL Albumin 3.1 L (3.5-5.0) g/dL Globulin 2.9 (2.2-3.9) gm/dL Albumin/Globulin Ratio 1.1 (1.0-2.1) Laboratory Results - last 24 hr 06/08/17 06/08/17 06:36 06:36 WBC 9.8 RBC 2.75 L Hgb 8.3 L Hct 24.8 L MCV 90.3 MCH 30.1 MCHC 33.3 RDW 16.3 H Plt Count 130 MPV 8.3 Neut % (Auto) 83.9 H Lymph % (Auto) 7.1 L [place] % (Auto) 6.9 Eos % (Auto) 1.6 Baso % (Auto) 0.5 Neut # 8.3 H Lymph # 0.7 L [place] # 0.7 Eos # 0.2 Baso # 0.0 Neutrophils % (Manual) 79 H Band Neutrophils % 3 H Lymphocytes % (Manual) 10 L Monocytes % (Manual) 7 Myelocytes % 1 H Nucleated RBC % 2 H Platelet Estimate Normal Basophilic Stippling Slight Anisocytosis (manual) Slight Sodium 143 Potassium 3.8 Chloride 105 Carbon Dioxide 25 Anion Gap 17 BUN 60 H Creatinine 3.4 H Est GFR ( Amer) 16 Est GFR (Non-Af Amer) 13 Random Glucose 82 Calcium 9.0 Phosphorus 5.5 H Magnesium 2.3 Total Bilirubin 2.0 H AST 112 H ALT 92 H Alkaline Phosphatase 73 Total Protein 6.0 L Albumin 3.1 L Globulin 2.9 Albumin/Globulin Ratio 1.1 Review of Systems - Constitutional Constitutional: Weakness - Cardiovascular Cardiovascular: Pedal Edema. absent: Chest Pain, Palpitations - Respiratory Respiratory: absent: Wheezing - Gastrointestinal Gastrointestinal: absent: Nausea, Vomiting - Integumentary Additional comments: B/L Upper extremities ecchymosis Critical Care Progress Note - Ventilator Checklist DVT Prophylaxis: Yes (SCDs) - Nutrition Nutrition: Nutrition Category Date Time Status Dysphagia/Modified Consistency Diet [DIET] Diets 06/07/17 Lunch Active Assessment/Plan - Assessment and Plan (Free Text) Assessment: 76 year old female with past medical history of Asthma, COPD, new onset of A.fibrillation, HTN, cardiomegaly with diastolic heart failure, DJD and dementia presenting with Acute respiratory distress secondary COPD exacerbation resulting in intubation (05/22/17) Plan: Pulm: Acute respiratory failure secondary to COPD exacerbation ( Stable) -Intubated on admission (05/22/17)---> extubated on 05/31/17 and placed on BIpap--- > reintubated on 06/01/17---> extubated on 06/05/17---> Vapotherma high flow oxygen and now currently on Nasal cannula - 06/05 CXR: Prominent diffuse increased interstitial lung markings suggestive for moderate venous congestion with bibasilar airspace opacities.Bilateral hilar prominence. Small bilateral pleural effusions; left greater than right. Cardiomegaly. - Chest CT (06/03/17) : Atelectasis in the left lower lobe. * Groundglass pneumonitis in the right upper lobe with hypoventilatory changes in the right lung base. * 2 nodular opacities in the right middle lobe. Recommend follow-up chest CT at 3-6 months to confirm persistence. If stable, chest CT at 2 and 4 years. * Extensive the soft tissue stranding likely representing hemorrhage involving the left chest wall and upper arm in this patient with ecchymosis in the above- described areas. * Cardiomegaly Medications: * Mucomyst 4 ml RQ6 * DuoNeb 3 ml RQ6 * Singulair 10 mg PO daily GI: * Stool occult blood positive (06/02/17)---> Decreased Hgb is currently trending up - Stopped all anti-platelet medications ASA and Lovenox due to anemia - Protonix 40mg IVP daily * 06/01 C. diff toxin negative CV: * Acute on chronic decompensated diastolic heart failure, HD on MWF * Atrial fibrillation rate controlled with Cardizem 30 mg PO daily ID: -Candidal rash bilateral breast * Nystatin powder for rash underneath breasts b/l - Leukocytosis trending down -sputum culture: yeast positive, scant growth - Urine culture : No growth Medications: * Zosyn 2.25gm IV Q8H Heme: Anemia; Stool occult blood positive - Bilateral ecchymosis in upper extremities with edema now extending into trunk. - Stopped all anti-platelet medications ASA and Lovenox due to anemia - transfused with 2 units of pRBC 06/01, 1 unit pRBC 06/02, 2 units 06/03 - 05/31 venous duplex scan of bilaterally upper extremities: Right - no abnormal findings. Left - not done due to swelling. Medications: * Ferrlecit 125mg IVPB daily Renal: elevated BUN and Cr - Dr. Ledesma on board---> Help appreciated * Recommendation for perma cath placement ( 06/08/17) - HD on MWF schedule; HD was done today - Saenz for strict I/O's Medications: * Phoslo 667mg PO TIDCC * Procrit 10,000 unit IV MWF * Ferrlecit 125mg IVPB daily Endo: No acute issues Neuro: Responsive to verbal stimuli DVT prophylaxis * SCD, anticoagulation contraindicated * GI prophylaxis - Protonix 40 mg IV daily * Multivitamins * Code status - full code
--- NOTE | 2017-06-08 11:39 | CP.PCM.PN ---
Subjective - Date & Time of Evaluation Date of Evaluation: 06/08/17 Time of Evaluation: 11:37 - Subjective Subjective: seen and examined on high flow o2 hd, uf 3L uop 560cc rosalio pt is poorly responsive Objective - Vital Signs/Intake and Output Vital Signs (last 24 hours): Temp Pulse Resp BP Pulse Ox 97.5 F L 78 28 H 153/57 H 99 06/08/17 10:15 06/08/17 10:15 06/08/17 11:23 06/08/17 10:15 06/08/17 07:00 Intake and Output: 06/08/17 06/08/17 06:59 18:59 Intake Total 50 Output Total 340 20 Balance -290 -20 - Medications Medications: Current Medications Albuterol/Ipratropium (Duoneb 3 Mg/0.5 Mg (3 Ml) Ud) 3 ml INH RQ6 [facility] Last Admin: 06/08/17 08:21 Dose: 3 ml Calcium Acetate (Phoslo) 667 mg PO TIDCC [facility] Last Admin: 06/07/17 17:08 Dose: 667 mg Diltiazem HCl (Cardizem) 30 mg PO Q6H [facility] Last Admin: 06/08/17 05:05 Dose: 30 mg Dorzolamide HCl (Trusopt) 10 ml OU TID [facility] Last Admin: 06/07/17 17:08 Dose: 1 drop Epoetin Ken (Procrit) 10,000 unit IV MWF [facility] Last Admin: 06/08/17 10:57 Dose: 10,000 unit Ferric Sodium Gluconate Complex (Ferrlecit) 125 mg IVPB DAILY [facility] Stop: 06/11/17 14:01 Last Admin: 06/07/17 09:51 Dose: 125 mg Piperacillin Sod/Tazobactam Sod (Zosyn 2.25 Gm Iv Premix) 2.25 gm in 50 mls @ 100 mls/hr IVPB Q8H [facility] Last Admin: 06/07/17 23:30 Dose: 100 mls/hr Montelukast Sodium (Singulair) 10 mg PO DAILY [facility] Last Admin: 06/07/17 09:46 Dose: Not Given Multivitamins (Hexavitamin) 1 tab PO DAILY [facility] Last Admin: 06/07/17 09:46 Dose: Not Given Nystatin (Nystop Topical Powder) 1 applic TOP TID [facility] Last Admin: 06/07/17 17:08 Dose: 1 pow Pantoprazole Sodium (Protonix Inj) 40 mg IVP DAILY [facility] Last Admin: 06/07/17 09:42 Dose: 40 mg - Labs Labs: 06/08/17 06:36 06/08/17 06:36 PT 12.4 SECONDS (9.7-12.2) H 06/03/17 17:53 INR 1.1 06/03/17 17:53 APTT 27 SECONDS (21-34) 06/03/17 17:53 - Constitutional Appears: No Acute Distress, Confused, Chronically Ill - Head Exam Head Exam: NORMAL INSPECTION - Eye Exam Eye Exam: Normal appearance - ENT Exam ENT Exam: Mucous Membranes Dry - Neck Exam Neck Exam: Normal Inspection - Respiratory Exam Respiratory Exam: Decreased Breath Sounds, Rhonchi, NORMAL BREATHING PATTERN - Cardiovascular Exam Cardiovascular Exam: REGULAR RHYTHM - GI/Abdominal Exam GI & Abdominal Exam: Distended, Soft, Hypoactive Bowel Sounds - Extremities Exam Extremities Exam: Pedal Edema Assessment and Plan (1) CEZAR (acute kidney injury) Status: Acute (2) Acute respiratory failure Status: Acute (3) Atrial fibrillation, new onset Status: Acute (4) COPD exacerbation Status: Acute (5) Change in mental state Status: Acute (6) Elevated WBCs Status: Acute - Assessment and Plan (Free Text) Assessment: maintain hd mwf will need permcath gil w/ hd
[2017-06-08] MEDS: Dorzolamide 2% Opht Sol 10ml OU SCH ×3 (13:08→17:59)
[2017-06-08] MEDS: Piperacill/Tazo 2.25gm in Dex 2.25 GM/50 ML BAG IVPB SCH ×2 (13:08→18:00)
--- NOTE | 2017-06-08 13:15 | CP.PCM.PN ---
Subjective - Date & Time of Evaluation Date of Evaluation: 06/08/17 Time of Evaluation: 13:00 - Subjective Subjective: Patient was seen and examined in ICU. Patient is now extubated. On oxygen by nasal cannula. Arousable but lethargic. Objective - Vital Signs/Intake and Output Vital Signs (last 24 hours): Temp Pulse Resp BP Pulse Ox 98.3 F 95 H 23 134/59 L 99 06/08/17 12:00 06/08/17 13:00 06/08/17 13:00 06/08/17 12:50 06/08/17 13:00 Intake and Output: 06/08/17 06/08/17 06:59 18:59 Intake Total 50 0 Output Total 340 90 Balance -290 -90 - Medications Medications: Current Medications Albuterol/Ipratropium (Duoneb 3 Mg/0.5 Mg (3 Ml) Ud) 3 ml INH RQ6 [facility] Last Admin: 06/08/17 13:15 Dose: 3 ml Calcium Acetate (Phoslo) 667 mg PO TIDCC [facility] Last Admin: 06/08/17 13:08 Dose: Not Given Diltiazem HCl (Cardizem) 30 mg PO Q6H [facility] Last Admin: 06/08/17 13:09 Dose: Not Given Dorzolamide HCl (Trusopt) 10 ml OU TID [facility] Last Admin: 06/08/17 13:08 Dose: Not Given Epoetin Ken (Procrit) 10,000 unit IV MWF [facility] Last Admin: 06/08/17 10:57 Dose: 10,000 unit Ferric Sodium Gluconate Complex (Ferrlecit) 125 mg IVPB DAILY [facility] Stop: 06/11/17 14:01 Last Admin: 06/07/17 09:51 Dose: 125 mg Piperacillin Sod/Tazobactam Sod (Zosyn 2.25 Gm Iv Premix) 2.25 gm in 50 mls @ 100 mls/hr IVPB Q8H [facility] Last Admin: 06/08/17 13:08 Dose: Not Given Montelukast Sodium (Singulair) 10 mg PO DAILY [facility] Last Admin: 06/07/17 09:46 Dose: Not Given Multivitamins (Hexavitamin) 1 tab PO DAILY [facility] Last Admin: 06/07/17 09:46 Dose: Not Given Nystatin (Nystop Topical Powder) 1 applic TOP TID [facility] Last Admin: 06/08/17 13:08 Dose: Not Given Pantoprazole Sodium (Protonix Inj) 40 mg IVP DAILY [facility] Last Admin: 06/07/17 09:42 Dose: 40 mg - Labs Labs: 06/08/17 06:36 06/08/17 06:36 PT 12.4 SECONDS (9.7-12.2) H 06/03/17 17:53 INR 1.1 06/03/17 17:53 APTT 27 SECONDS (21-34) 06/03/17 17:53 - Head Exam Head Exam: ATRAUMATIC, NORMOCEPHALIC - Eye Exam Eye Exam: PERRL - ENT Exam ENT Exam: Mucous Membranes Moist - Respiratory Exam Respiratory Exam: Decreased Breath Sounds - Cardiovascular Exam Cardiovascular Exam: REGULAR RHYTHM, +S1, +S2 - GI/Abdominal Exam GI & Abdominal Exam: Soft - Extremities Exam Extremities Exam: Pedal Edema Assessment and Plan (1) CEZAR (acute kidney injury) Assessment & Plan: Patient is now on dialysis. Plan for permacath placement. Continue hemodialysis as per schedule. Nephrology is on board. Status: Acute (2) Pneumonia Assessment & Plan: Improving. Continue antibiotics. Patient is on Zosyn. Status: Acute (3) Acute respiratory failure with hypoxia and hypercapnia Assessment & Plan: Now extubated. On oxygen by nasal cannula. Monitor respiratory status closely. Status: Acute (4) COPD exacerbation Assessment & Plan: Continue DuoNeb treatment. Status: Acute (5) Atrial fibrillation, new onset Assessment & Plan: Rate controlled. Not on anticoagulation because of anemia. Status: Acute (6) CHF (congestive heart failure) Status: Acute (7) Elevated WBCs Assessment & Plan: Trending down. Status: Acute (8) History of hyperlipidemia Assessment & Plan: Continue current medical management Status: Acute (9) History of hypertension Assessment & Plan: Controlled now. Status: Acute
[2017-06-08] MEDS: Multiple Vitamins Tab PO SCH (14:34)
[2017-06-08] MEDS: Ferric Sodium Gluconat Complex 62.5 mg/5 ml Vial IVPB SCH (14:35)
--- NOTE | 2017-06-08 14:39 | CP.PCM.CON ---
History of Present Illness - History of Present Illness History of Present Illness: General Surgery Consult Note for Dr. Tristan Consulted at the request of Dr. Ledesma for permacath as patient will need further dialysis Patient is a 76 year old female with pmhx of COPD, asthma, cardiomegaly, dementia, HTN, HLD, a fib, GERD, and glaucoma who was admitted to the hospital on 05/22 for COPD exacerbation. During her hospital course her BUN/Cr increased from about 40/.6 to 89/ 3.0. Hemodialysis was initiated on 06/02. Patient to continue hemodialysis MWF. Today patient is post hemodialysis. Patient is very lethargic and ROS are unobtainable. History obtained from chart. PMD: Dr. Costa PMHx: COPD, asthma, cardiomegaly, dementia, HTN, HLD, a. fib, GERD, glaucoma Psurg: cataracts, abdominal hernia repair, bilateral tubal ligation Social: denies alcohol, tobacco, drugs Famhx: father due to heart disease, son with asthma Review of Systems - Review of Systems Systems not reviewed;Unavailable: Other (patient lethargic and ROS unobtainable ) Past Patient History - Past Medical History & Family History Past Medical History?: Yes Past Family History: Reviewed and not pertinent - Past Social History Smoking Status: Never Smoked Chewing Tobacco Use: No Cigar Use: No Alcohol: None Home Situation {Lives}: Shelter - CARDIAC Hx Hypertension: Yes - PULMONARY Hx Chronic Obstructive Pulmonary Disease (COPD): Yes - NEUROLOGICAL Hx Dementia: Yes - RENAL Hx Chronic Kidney Disease: No - ENDOCRINE/METABOLIC Hx Endocrine Disorders: No - HEMATOLOGICAL/ONCOLOGICAL Hx Blood Disorders: No - INTEGUMENTARY Hx Dermatological Problems: No - MUSCULOSKELETAL/RHEUMATOLOGICAL Hx Degenerative Joint Disease: Yes Hx Osteoarthritis: Yes - GASTROINTESTINAL Hx Gastrointestinal Disorders: No - GENITOURINARY/GYNECOLOGICAL Hx Genitourinary Disorders: No - PSYCHIATRIC Hx Substance Use: No - SURGICAL HISTORY Hx Surgeries: Yes Hx Cataract Extraction: Yes Hx Herniorrhaphy: Yes (Umbilical) - ANESTHESIA Hx Anesthesia: Yes Hx Anesthesia Reactions: No Meds Allergies/Adverse Reactions: Allergies Allergy/AdvReac Type Severity Reaction Status Date / Time No Known Allergies Allergy Unverified 05/22/17 09:31 - Medications Medications: Current Medications Albuterol/Ipratropium (Duoneb 3 Mg/0.5 Mg (3 Ml) Ud) 3 ml INH RQ6 [facility] Last Admin: 06/08/17 13:15 Dose: 3 ml Calcium Acetate (Phoslo) 667 mg PO TIDCC [facility] Last Admin: 06/08/17 13:08 Dose: Not Given Diltiazem HCl (Cardizem) 30 mg PO Q6H [facility] Last Admin: 06/08/17 13:09 Dose: Not Given Dorzolamide HCl (Trusopt) 10 ml OU TID [facility] Last Admin: 06/08/17 13:08 Dose: Not Given Epoetin Ken (Procrit) 10,000 unit IV MWF [facility] Last Admin: 06/08/17 10:57 Dose: 10,000 unit Ferric Sodium Gluconate Complex (Ferrlecit) 125 mg IVPB DAILY [facility] Stop: 06/11/17 14:01 Last Admin: 06/07/17 09:51 Dose: 125 mg Piperacillin Sod/Tazobactam Sod (Zosyn 2.25 Gm Iv Premix) 2.25 gm in 50 mls @ 100 mls/hr IVPB Q8H [facility] Last Admin: 06/08/17 13:08 Dose: Not Given Montelukast Sodium (Singulair) 10 mg PO DAILY [facility] Last Admin: 06/07/17 09:46 Dose: Not Given Multivitamins (Hexavitamin) 1 tab PO DAILY [facility] Last Admin: 06/07/17 09:46 Dose: Not Given Nystatin (Nystop Topical Powder) 1 applic TOP TID [facility] Last Admin: 06/08/17 13:08 Dose: Not Given Pantoprazole Sodium (Protonix Inj) 40 mg IVP DAILY [facility] Last Admin: 06/07/17 09:42 Dose: 40 mg Physical Exam - Constitutional Appears: No Acute Distress, Chronically Ill - Head Exam Head Exam: ATRAUMATIC, NORMAL INSPECTION, NORMOCEPHALIC - Eye Exam Eye Exam: EOMI, Normal appearance - ENT Exam ENT Exam: Mucous Membranes Moist - Respiratory Exam Respiratory Exam: Rales - Cardiovascular Exam Cardiovascular Exam: RRR, +S1, +S2. absent: Gallop, Rubs, Systolic Murmur - GI/Abdominal Exam GI & Abdominal Exam: Normal Bowel Sounds, Soft - Extremities Exam Extremities exam: Negative for: normal inspection Additional comments: ecchymosis b// upper extremities - Skin Skin Exam: Warm Additional comments: Ecchymosis on bilateral upper extremities Results - Vital Signs Recent Vital Signs: Last Vital Signs Temp 98.1 F 06/08/17 13:20 Pulse 93 H 06/08/17 13:20 Resp 31 H 06/08/17 13:36 BP 138/60 06/08/17 13:20 Pulse Ox 99 06/08/17 13:20 - Labs Result Diagrams: 06/08/17 06:36 06/08/17 06:36 Labs: Laboratory Results - last 24 hr 06/08/17 06/08/17 06:36 06:36 WBC 9.8 RBC 2.75 L Hgb 8.3 L Hct 24.8 L MCV 90.3 MCH 30.1 MCHC 33.3 RDW 16.3 H Plt Count 130 MPV 8.3 Neut % (Auto) 83.9 H Lymph % (Auto) 7.1 L [place] % (Auto) 6.9 Eos % (Auto) 1.6 Baso % (Auto) 0.5 Neut # 8.3 H Lymph # 0.7 L [place] # 0.7 Eos # 0.2 Baso # 0.0 Neutrophils % (Manual) 79 H Band Neutrophils % 3 H Lymphocytes % (Manual) 10 L Monocytes % (Manual) 7 Myelocytes % 1 H Nucleated RBC % 2 H Platelet Estimate Normal Basophilic Stippling Slight Anisocytosis (manual) Slight Sodium 143 Potassium 3.8 Chloride 105 Carbon Dioxide 25 Anion Gap 17 BUN 60 H Creatinine 3.4 H Est GFR ( Amer) 16 Est GFR (Non-Af Amer) 13 Random Glucose 82 Calcium 9.0 Phosphorus 5.5 H Magnesium 2.3 Total Bilirubin 2.0 H AST 112 H ALT 92 H Alkaline Phosphatase 73 Total Protein 6.0 L Albumin 3.1 L Globulin 2.9 Albumin/Globulin Ratio 1.1 Assessment & Plan - Assessment and Plan (Free Text) Assessment: 76F with extensive PMH with acute kidney injury needing continued hemodialysis. Plan: - Permacath placement tomorrow - NPO after midnight - gi/dvt ppx - further recs per Dr. Tristan
--- NOTE | 2017-06-08 21:21 | CP.PCM.PN ---
Subjective - Date & Time of Evaluation Date of Evaluation: 06/08/17 Time of Evaluation: 06:00 - Subjective Subjective: dictated Objective - Vital Signs/Intake and Output Vital Signs (last 24 hours): Temp Pulse Resp BP Pulse Ox 99.2 F 71 28 H 156/63 H 98 06/08/17 20:00 06/08/17 20:00 06/08/17 20:32 06/08/17 19:45 06/08/17 20:00 Intake and Output: 06/08/17 06/09/17 18:59 06:59 Intake Total 550 Output Total 200 Balance 350 - Medications Medications: Current Medications Albuterol/Ipratropium (Duoneb 3 Mg/0.5 Mg (3 Ml) Ud) 3 ml INH RQ6 [facility] Last Admin: 06/08/17 20:31 Dose: 3 ml Calcium Acetate (Phoslo) 667 mg PO TIDCC [facility] Last Admin: 06/08/17 17:58 Dose: 667 mg Diltiazem HCl (Cardizem) 30 mg PO Q6H [facility] Last Admin: 06/08/17 17:58 Dose: 30 mg Dorzolamide HCl (Trusopt) 10 ml OU TID [facility] Last Admin: 06/08/17 17:59 Dose: 1 drop Epoetin Ken (Procrit) 10,000 unit IV MWF [facility] Last Admin: 06/08/17 10:57 Dose: 10,000 unit Ferric Sodium Gluconate Complex (Ferrlecit) 125 mg IVPB DAILY [facility] Stop: 06/11/17 14:01 Last Admin: 06/08/17 14:35 Dose: 125 mg Montelukast Sodium (Singulair) 10 mg PO DAILY [facility] Last Admin: 06/08/17 14:34 Dose: 10 mg Multivitamins (Hexavitamin) 1 tab PO DAILY [facility] Last Admin: 06/08/17 14:34 Dose: 1 tab Nystatin (Nystop Topical Powder) 1 applic TOP TID [facility] Last Admin: 06/08/17 17:59 Dose: 1 pow Pantoprazole Sodium (Protonix Inj) 40 mg IVP DAILY [facility] Last Admin: 06/08/17 14:35 Dose: 40 mg - Labs Labs: 06/08/17 06:36 06/08/17 06:36 PT 12.4 SECONDS (9.7-12.2) H 06/03/17 17:53 INR 1.1 06/03/17 17:53 APTT 27 SECONDS (21-34) 06/03/17 17:53
[2017-06-09] MEDS: Albuterol-Ipratrop 3 mg / 0.5 (3 ml) UD INH SCH ×4 (01:01→19:55)
--- NOTE | 2017-06-09 03:05 | PN ---
DATE: SUBJECTIVE: Patient was seen today. Her family members were at the bedside. She was awake and she was supposed to need a PermCath for her dialysis. She has a history of COPD, asthma, hypertension, atrial fibrillation, GERD, and glaucoma. She is looking more alert now. PHYSICAL EXAMINATION: VITAL SIGNS: Stable. She is off the ventilator. She has a right side triple lumen. NECK: Supple. LUNGS: Clear. Decreased breath sounds bilaterally. HEART: S1 and S2, regular. ABDOMEN: Soft. Nontender. No guarding, no rigidity present. EXTREMITIES: Have edema. She also has ecchymosis on her upper extremity where she in the tissue. LABORATORY DATA: Her white count has come down and today it was 9.8, hemoglobin is 8.3, hematocrit 24.8, platelet count is 130. She has been on antibiotics for a longtime as she was intubated twice. So, at this time, I would discontinue the antibiotics. Her creatinine is 3.4, BUN is 60 and she needs dialysis, for that they are putting a PermCath. Her cultures have all been negative except for the sputum, which had now some yeast species. So, patient will be off antibiotics at this time. We will monitor for any fever. IMPRESSION: She came in with acute respiratory failure, renal failure and has sepsis secondary to pneumonia and is improving. Hellen Ospina MD
[2017-06-09 06:39] LABS: BASO # 0.1 K/uL (0.0-0.2); EOS # 0.1 K/uL (0.0-0.7); HEMATOCRIT 24.7 % (34.0-47.0); LYMPH # 1.3 K/uL (1.0-4.3); MEAN CELL VOLUME 90.9 fL (81.0-99.0); MEAN CORPUSCULAR HEMOGLOBIN 30.1 pg (27.0-31.0); MEAN CORPUSCULAR HGB CONC 33.1 g/dL (33.0-37.0); MEAN PLATELET VOLUME 7.9 fL (7.2-11.7); MONO # 1.1 K/uL (0.0-0.8); MONO % 8.9 % (0.0-10.0); NRBC % 1.4 % (0.0-2.0); RED CELL DISTRIBUTION WIDTH 16.2 % (11.5-14.5); WHITE BLOOD COUNT 12.2 K/uL (4.8-10.8)
[2017-06-09 06:44] LABS: POTASSIUM 3.9 mmol/L (3.6-5.2)
[2017-06-09 06:46] LABS: ALB/GLOB RATIO 1.1 (1.0-2.1); BILIRUBIN,TOTAL 2.1 mg/dL (0.2-1.3); PHOSPHOROUS 4.1 mg/dL (2.5-4.5)
[2017-06-09 06:47] LABS: CALCIUM 8.9 mg/dl (8.6-10.4); MAGNESIUM 2.2 mg/dL (1.6-2.3)
[2017-06-09 06:50] LABS: INR 1.3
[2017-06-09] MEDS: Multiple Vitamins Tab PO SCH (09:53)
[2017-06-09] MEDS: Ferric Sodium Gluconat Complex 62.5 mg/5 ml Vial IVPB SCH (09:57)
[2017-06-09] MEDS: Dorzolamide 2% Opht Sol 10ml OU SCH ×3 (09:58→18:27)
--- NOTE | 2017-06-09 11:57 | CP.PCM.PN ---
Subjective - Date & Time of Evaluation Date of Evaluation: 06/09/17 Time of Evaluation: 11:56 - Subjective Subjective: seen and examined s/p permcath s/p hd yesterday bp high, noted uop 500cc lethargic, unable to answer questions Objective - Vital Signs/Intake and Output Vital Signs (last 24 hours): Temp Pulse Resp BP Pulse Ox 99.7 F H 90 28 H 171/65 H 99 06/09/17 08:00 06/09/17 10:45 06/09/17 11:22 06/09/17 10:45 06/09/17 10:45 Intake and Output: 06/09/17 06/09/17 06:59 18:59 Intake Total 50 0 Output Total 310 45 Balance -260 -45 - Medications Medications: Current Medications Albuterol/Ipratropium (Duoneb 3 Mg/0.5 Mg (3 Ml) Ud) 3 ml INH RQ6 [facility] Last Admin: 06/09/17 07:48 Dose: 3 ml Calcium Acetate (Phoslo) 667 mg PO TIDCC [facility] Last Admin: 06/09/17 08:30 Dose: 667 mg Diltiazem HCl (Cardizem) 30 mg PO Q6H [facility] Last Admin: 06/09/17 05:03 Dose: 30 mg Dorzolamide HCl (Trusopt) 10 ml OU TID [facility] Last Admin: 06/09/17 09:58 Dose: 1 drop Epoetin Ken (Procrit) 10,000 unit IV MWF [facility] Last Admin: 06/08/17 10:57 Dose: 10,000 unit Ferric Sodium Gluconate Complex (Ferrlecit) 125 mg IVPB DAILY [facility] Stop: 06/11/17 14:01 Last Admin: 06/09/17 09:57 Dose: 125 mg Montelukast Sodium (Singulair) 10 mg PO DAILY [facility] Last Admin: 06/09/17 09:52 Dose: 10 mg Multivitamins (Hexavitamin) 1 tab PO DAILY [facility] Last Admin: 06/09/17 09:53 Dose: 1 tab Nystatin (Nystop Topical Powder) 1 applic TOP TID [facility] Last Admin: 06/09/17 09:58 Dose: 1 pow Pantoprazole Sodium (Protonix Inj) 40 mg IVP DAILY [facility] Last Admin: 06/09/17 09:53 Dose: 40 mg - Labs Labs: 06/09/17 06:24 06/09/17 06:24 PT 14.3 SECONDS (9.7-12.2) H 06/09/17 06:24 INR 1.3 06/09/17 06:24 APTT 27 SECONDS (21-34) 06/09/17 06:24 - Constitutional Appears: No Acute Distress, Chronically Ill (obese) - Head Exam Head Exam: NORMAL INSPECTION - Eye Exam Eye Exam: Normal appearance - ENT Exam ENT Exam: Mucous Membranes Moist - Neck Exam Neck Exam: Normal Inspection - Respiratory Exam Respiratory Exam: Decreased Breath Sounds, NORMAL BREATHING PATTERN - Cardiovascular Exam Cardiovascular Exam: REGULAR RHYTHM, RRR - GI/Abdominal Exam GI & Abdominal Exam: Distended, Soft, Normal Bowel Sounds - Extremities Exam Extremities Exam: Pedal Edema (3+ edema b/l upper and lower ext. ) Assessment and Plan (1) CEZAR (acute kidney injury) Status: Acute (2) Acute respiratory failure Status: Acute (3) Atrial fibrillation, new onset Status: Acute (4) COPD exacerbation Status: Acute (5) Change in mental state Status: Acute (6) Elevated WBCs Status: Acute - Assessment and Plan (Free Text) Assessment: hd today, may need daily hd for ultrafiltration watch for renal recovery
[2017-06-09] MEDS ORDERED: HEPARIN-NS 5,000 UNITS/500 ML 5,000 UNIT/500 ML BAG IV ONE (12:52)
[2017-06-09] MEDS ORDERED: ceFAZolin IV 1 gm in Dextrose 0 GM/0 ML BAG IVPB ONE (12:53)
[2017-06-09] MEDS ORDERED: Sodium Chloride 0.9% 1,000 ML IV ONE (13:09)
[2017-06-09] MEDS ORDERED: Propofol 10 mg/ml Inj (20 ML) ONE (13:19)
[2017-06-09] MEDS: Lidocaine 1% Inj (20ml) ONE ×2 (14:29→14:35)
--- NOTE | 2017-06-09 14:47 | RAD ---
PROCEDURE: Intraoperative Fluoroscopy. HISTORY: RENAL FAILURE FINDINGS: Fluoroscopic assistance was provided for left-sided PermCath placement. Please refer to the operative report from
--- NOTE | 2017-06-09 15:10 | RAD ---
HISTORY: Post Perma cath placement COMPARISON: Chest x-ray 06/05/2017 FINDINGS: LUNGS: Mild left basilar atelectasis. PLEURA: Small bilateral pleural effusions. CARDIOVASCULAR: Stable cardiomegaly. New left-sided PermCath with lead tips overlying the region of the right atrium. Stable right-sided central venous line with tip overlying the region of the distal SVC. OSSEOUS STRUCTURES: Hypertrophic degenerative changes noted bilateral acromioclavicular joints. VISUALIZED UPPER ABDOMEN: Unremarkable OTHER FINDINGS: None. IMPRESSION: New left-sided PermCath as above. Small bilateral pleural effusions.
--- NOTE | 2017-06-09 15:17 | CP.PCM.PN ---
Subjective - Date & Time of Evaluation Date of Evaluation: 06/09/17 Time of Evaluation: 13:30 - Subjective Subjective: Patient was seen and examined at bedside in ICU Patient lying in bed not in any acute distress. Objective - Vital Signs/Intake and Output Vital Signs (last 24 hours): Temp Pulse Resp BP Pulse Ox 99.9 F H 89 26 H 157/70 H 96 06/09/17 12:00 06/09/17 15:00 06/09/17 15:00 06/09/17 14:57 06/09/17 15:00 Intake and Output: 06/09/17 06/09/17 06:59 18:59 Intake Total 50 100 Output Total 310 170 Balance -260 -70 - Medications Medications: Current Medications Albuterol/Ipratropium (Duoneb 3 Mg/0.5 Mg (3 Ml) Ud) 3 ml INH RQ6 [facility] Last Admin: 06/09/17 13:43 Dose: Not Given Calcium Acetate (Phoslo) 667 mg PO TIDCC [facility] Last Admin: 06/09/17 12:00 Dose: Not Given Diltiazem HCl (Cardizem) 30 mg PO Q6H [facility] Last Admin: 06/09/17 12:00 Dose: Not Given Dorzolamide HCl (Trusopt) 10 ml OU TID [facility] Last Admin: 06/09/17 14:36 Dose: 1 drop Epoetin Ken (Procrit) 10,000 unit IV MWF [facility] Last Admin: 06/08/17 10:57 Dose: 10,000 unit Ferric Sodium Gluconate Complex (Ferrlecit) 125 mg IVPB DAILY [facility] Stop: 06/11/17 14:01 Last Admin: 06/09/17 09:57 Dose: 125 mg Montelukast Sodium (Singulair) 10 mg PO DAILY [facility] Last Admin: 06/09/17 09:52 Dose: 10 mg Multivitamins (Hexavitamin) 1 tab PO DAILY [facility] Last Admin: 06/09/17 09:53 Dose: 1 tab Nystatin (Nystop Topical Powder) 1 applic TOP TID [facility] Last Admin: 06/09/17 14:36 Dose: 1 pow Pantoprazole Sodium (Protonix Inj) 40 mg IVP DAILY [facility] Last Admin: 06/09/17 09:53 Dose: 40 mg - Labs Labs: 06/09/17 06:24 06/09/17 06:24 PT 14.3 SECONDS (9.7-12.2) H 06/09/17 06:24 INR 1.3 06/09/17 06:24 APTT 27 SECONDS (21-34) 06/09/17 06:24 - Head Exam Head Exam: ATRAUMATIC, NORMOCEPHALIC - Eye Exam Eye Exam: Normal appearance - ENT Exam ENT Exam: Mucous Membranes Moist - Respiratory Exam Respiratory Exam: Decreased Breath Sounds, Rhonchi - Cardiovascular Exam Cardiovascular Exam: REGULAR RHYTHM, +S1, +S2 - Extremities Exam Extremities Exam: Pedal Edema Assessment and Plan (1) CEZAR (acute kidney injury) Assessment & Plan: Patient is on hemodialysis now. Permacath placed today. Status: Acute (2) Pneumonia Assessment & Plan: Continue antibiotics. Patient is on Zosyn. Status: Acute (3) Acute respiratory failure with hypoxia and hypercapnia Assessment & Plan: Status post extubation now. Respiratory status is stable. Continue monitor. Status: Acute (4) COPD exacerbation Assessment & Plan: On nebulizing treatment. Status post extubation now. Status: Acute (5) Atrial fibrillation, new onset Assessment & Plan: Not on anticoagulation because of for anemia. Rate controlled Status: Acute (6) CHF (congestive heart failure) Assessment & Plan: Compensated. Continue hemodialysis now. Status: Acute (7) Elevated WBCs Status: Acute (8) History of hyperlipidemia Assessment & Plan: Continue statin. Status: Acute (9) History of hypertension Assessment & Plan: Blood pressures controlled now. Status: Acute
--- NOTE | 2017-06-09 15:23 | PCM.SURG1 ---
Surgeon's Initial Post Op Note - Surgeon's Notes Surgeon: Azalea Boning Room Worker: Bishop Type of Anesthesia: IV Sedation Pre-Operative Diagnosis: ESRD on HD Operative Findings: see operative report Post-Operative Diagnosis: ESRD on HD Operation Performed: Left IJ permacath insertion Specimen/Specimens Removed: N/A Estimated Blood Loss: EBL {In ML}: 15 Blood Products Given: N/A Drains Used: No Drains Post-Op Condition: Good Date of Surgery/Procedure: 06/09/17 Time of Surgery/Procedure: 01:00
--- NOTE | 2017-06-09 17:36 | CP.CCUPN ---
<Cal Bruner E - Last Filed: 06/09/17 17:38> CCU Subjective - Physician Review Subjective (Free Text): Patient seen and examined at bedside. Patient is breathing on nasal cannula, awake and attempting to speak. She responds to verbal stimuli. She admits to dry mouth requesting water. Full ROS could not be properly evaluated as the patient is still unable to verbalize post extubation. Patient was NPO this morning for Permacath placement today. Patient's medical record and labs were reviewed and discussed with the house staff. 06/09/17 17:33 CCU Objective - Vital Signs / Intake & Output Vital Signs (Last 4 hours): Vital Signs Temp Pulse Resp BP Pulse Ox 06/09/17 16:15 27 H 06/09/17 16:12 84 27 H 141/69 98 06/09/17 16:00 98.8 F 96 H 29 H 99 06/09/17 15:57 83 23 151/62 H 97 06/09/17 15:49 85 21 157/63 H 97 06/09/17 15:44 92 H 24 161/77 H 97 06/09/17 15:27 99 H 24 156/67 H 95 06/09/17 15:12 94 H 25 H 162/66 H 96 06/09/17 15:00 89 26 H 96 06/09/17 14:57 92 H 28 H 157/70 H 96 06/09/17 14:42 98 H 26 H 140/68 96 06/09/17 14:27 101 H 26 H 145/58 L 95 06/09/17 14:12 110 H 28 H 154/82 H 96 06/09/17 14:09 73 12 Intake and Output (Last 8hrs): Intake & Output 06/09/17 06/09/17 06/09/17 06:59 14:59 22:59 Intake Total 50 100 0 Output Total 220 245 40 Balance -170 -145 -40 Weight 253 lb Intake: Intake, IV Amount 100 0 Right Distal Port 100 0 Internal Jugular Right Proximal Port 0 0 Internal Jugular Oral 50 0 0 Output: Urine 220 245 40 Urethral (Saenz) 220 245 40 - Physical Exam Head: Positive for: Atraumatic, Normocephalic Pupils: Positive for: PERRL Extroacular Muscles: Positive for: EOMI Mouth: Positive for: Moist Mucous Membranes Respiratory/Chest: Positive for: Rales Cardiovascular: Positive for: Regular Rate and Rhythm, Normal S1, S2 Abdomen: Positive for: Normal Bowel Sounds. Negative for: Tenderness Breast/Axillary: Positive for: Discoloration (ecchymosis left lower breast) Upper Extremity: Positive for: Edema, Swelling, Other (ecchymosis b/l; faint pulses bilaterally). Negative for: Normal Inspection (B/L upper extremities ecchymosis, resolving) Lower Extremity: Positive for: NORMAL PULSES Neurological: Positive for: GCS=15, Other (follows commands) Skin: Positive for: Other (Ecchymosis on bilateral upper extremities and left lower breast area) Psychiatric: Positive for: Alert - Medications Active Medications: Active Medications Generic Name Dose Route Start Last Admin Trade Name Freq PRN Reason Stop Dose Admin Albuterol/Ipratropium 3 ml 05/28/17 18:45 06/09/17 13:43 Duoneb 3 Mg/0.5 Mg (3 Ml) Ud INH Not Given RQ6 [facility] Calcium Acetate 667 mg 06/01/17 17:00 06/09/17 12:00 Phoslo PO Not Given TIDCC [facility] Diltiazem HCl 30 mg 05/26/17 12:00 06/09/17 12:00 Cardizem PO Not Given Q6H [facility] Dorzolamide HCl 10 ml 05/22/17 18:00 06/09/17 14:36 Trusopt OU 1 drop TID [facility] Administration Epoetin Ken 10,000 unit 06/05/17 09:00 06/08/17 10:57 Procrit IV 10,000 unit MWF [facility] Administration Ferric Sodium Gluconate Complex 125 mg 06/03/17 14:00 06/09/17 09:57 Ferrlecit IVPB 06/11/17 14:01 125 mg DAILY [facility] Administration Montelukast Sodium 10 mg 05/23/17 10:00 06/09/17 09:52 Singulair PO 10 mg DAILY [facility] Administration Morphine Sulfate 1 mg 06/09/17 15:23 Morphine IVP Q4 PRN Pain, moderate (4-7) Multivitamins 1 tab 05/22/17 13:45 06/09/17 09:53 Hexavitamin PO 1 tab DAILY [facility] Administration Nystatin 1 applic 05/27/17 10:30 06/09/17 14:36 Nystop Topical Powder TOP 1 pow TID [facility] Administration Pantoprazole Sodium 40 mg 06/06/17 11:00 06/09/17 09:53 Protonix Inj IVP 40 mg DAILY [facility] Administration - Patient Studies Lab Studies: Lab Studies 06/09/17 06/09/17 06/09/17 Range/Units 06:24 06:24 06:24 WBC 12.2 H (4.8-10.8) K/uL RBC 2.72 L (3.80-5.20) Mil/uL Hgb 8.2 L (11.0-16.0) g/dL Hct 24.7 L (34.0-47.0) % MCV 90.9 (81.0-99.0) fL MCH 30.1 (27.0-31.0) pg MCHC 33.1 (33.0-37.0) g/dL RDW 16.2 H (11.5-14.5) % Plt Count 145 (130-400) K/uL MPV 7.9 (7.2-11.7) fL Neut % (Auto) 78.1 H (50.0-75.0) % Lymph % (Auto) 11.0 L (20.0-40.0) % [place] % (Auto) 8.9 (0.0-10.0) % Eos % (Auto) 1.0 (0.0-4.0) % Baso % (Auto) 1.0 (0.0-2.0) % Neut # 9.6 H (1.8-7.0) K/uL Lymph # 1.3 (1.0-4.3) K/uL [place] # 1.1 H (0.0-0.8) K/uL Eos # 0.1 (0.0-0.7) K/uL Baso # 0.1 (0.0-0.2) K/uL PT 14.3 H (9.7-12.2) SECONDS INR 1.3 APTT 27 (21-34) SECONDS Sodium 145 (132-148) mmol/L Potassium 3.9 (3.6-5.2) mmol/L Chloride 106 (98-107) mmol/L Carbon Dioxide 27 (22-30) mmol/L Anion Gap 16 (10-20) BUN 57 H (7-17) mg/dL Creatinine 2.9 H (0.7-1.2) MG/DL Est GFR ( Amer) 19 Est GFR (Non-Af Amer) 16 Random Glucose 92 (65-105) mg/dL Calcium 8.9 (8.6-10.4) mg/dl Phosphorus 4.1 (2.5-4.5) mg/dL Magnesium 2.2 (1.6-2.3) mg/dL Total Bilirubin 2.1 H (0.2-1.3) mg/dL AST 90 H (14-36) U/L ALT 101 H (9-52) U/L Alkaline Phosphatase 72 (38-126) U/L Total Protein 6.0 L (6.3-8.3) g/dL Albumin 3.2 L (3.5-5.0) g/dL Globulin 2.8 (2.2-3.9) gm/dL Albumin/Globulin Ratio 1.1 (1.0-2.1) Laboratory Results - last 24 hr 06/09/17 06/09/17 06/09/17 06:24 06:24 06:24 WBC 12.2 H RBC 2.72 L Hgb 8.2 L Hct 24.7 L MCV 90.9 MCH 30.1 MCHC 33.1 RDW 16.2 H Plt Count 145 MPV 7.9 Neut % (Auto) 78.1 H Lymph % (Auto) 11.0 L [place] % (Auto) 8.9 Eos % (Auto) 1.0 Baso % (Auto) 1.0 Neut # 9.6 H Lymph # 1.3 [place] # 1.1 H Eos # 0.1 Baso # 0.1 PT 14.3 H INR 1.3 APTT 27 Sodium 145 Potassium 3.9 Chloride 106 Carbon Dioxide 27 Anion Gap 16 BUN 57 H Creatinine 2.9 H Est GFR ( Amer) 19 Est GFR (Non-Af Amer) 16 Random Glucose 92 Calcium 8.9 Phosphorus 4.1 Magnesium 2.2 Total Bilirubin 2.1 H AST 90 H ALT 101 H Alkaline Phosphatase 72 Total Protein 6.0 L Albumin 3.2 L Globulin 2.8 Albumin/Globulin Ratio 1.1 Critical Care Progress Note - Extremities/Vascular Does the Patient have a Central Venous Catheter?: Yes Insertion Site: Internal Jugular Vein (right) Does the Patient need a Central Venous Catheter?: Yes Does the Patient have a Saenz Catheter?: Yes Does the Patient need a Saenz Catheter?: Yes Catheter Insertion Criteria: Patient has acute urinary retention or bladder outlet obstruction - Prophylaxis GI Prophylaxis GI: PPI - Prophylaxis DVT Prophylaxis DVT: SCDs - Nutrition Nutrition: Nutrition Category Date Time Status Dysphagia/Modified Consistency Diet [DIET] Diets 06/09/17 Lunch Active Assessment/Plan - Assessment and Plan (Free Text) Assessment: 76 year old female with PMHx of Ashtma, COPD, new onset of A. fibrillation, HTN , cardiomegaly with diastolic heart failure, DJD and dementia presenting with acute respiratory distress secondary to COPD exacerbation resulting in intubation on 05/22/2017. Extubated on 06/05. Today 06/09/2017: Permacath placed today for hemodialysis access. HD today. Plan: Pulm: Acute respiratory failure scondary to COPD exacerbation (Stable) - Intubated on admission (05/22/2019) --> extubated on 05/31/17 and placed on biPAP --> reintubated on 06/01/17 --> extubated on 06/05/17 --> Vapotherma high flow oxygen and now currently on nasal cannula - 06/05 CXR: Prominent diffuse increased interstitial lung markings suggestive for moderate venous congestion with bibasilar airspace opacities. Bilateral hilar prominence. Small bilateral pleural effusions; left greater than right. Cardiomegaly. - Chest CT (06/03/17): Atelectasis in the left lower lobe. Groundglass pneumonitis in the right upper lobe with hypoventilatory changes in the right lung base. Nodular opacities in emily right middle lobe. Rommend follow- up chest CT at 3-6 months to confirm persistnce. If stable, chest CT at 2 and 4 years. Extensive soft tissue stranding likely representing hemorrhage involving the left chest wall and upper arm in this patient with ecchymosis in the above described areas. Cardiomegaly. Medications: Mucomyst 4 ml RQ6 DuoNeb 3 ml RQ6 Singulair 10 mg PO daily GI: - Stool occult blood positive (06/02/17) --> decreased hgb is currently trending up - stopped all anti-platelet medications ASA and Lovenox due to anemia - Protoniz 40 mg IVP daily 06/01 C. diff toxin negative CV: - Acute on chronic decompenxated diastolic heart failure, HD on MWF - Atrial fibrillation rate controlled with Cardizem 30 mg PO daily ID: - Candidal rash under bilateral breast: Nystatin powder - Leukocytosis trending down - Sputum culture: yeast positive, scant growth - Urine culture: no growth Medications Zoxyn 2.25 gm IV Q8h Heme: Anemia; Stool occult blood positive - Bilateral ecchymosis in upper extremities with edema now extending into trunk. - Stopped all anti-platelet medications ASA and Lovenox due to anemia - transfused with 2 units of pRBC 06/01, 1 unit pRBC 06/02, 2 units 06/03 - 05/31 venous duplex scan of bilateral upper extremities: Right - no abnomral findings. Left - not done due to swelling. Medications Ferrlecit 125 mg IVPB daily Renal: elevated BUN and Cr - Dr. Ledesma on board --> help appreciated - recommendation for permacath placement (06/08/17) - HD on MWF schedule - Hugh for strict I/O's - Permacath placement today Medications Phoslo 556 mg PO TIDCC Procrit 10,00 units IV MWF Ferrlecit 125 mg IVPB daily Endo: no acute issues Neuro: no acute issues, responsive to verbal stimuli. Avoid neurosedative medications like benzodiazapines DVT prophylaxis - SCD, anticoagulation contraindicated - GI prophylaxis - Protonix 40 mg IV daily - Multivitamins - Code status - full code <Richard Calle M - Last Filed: 06/09/17 17:48> CCU Objective - Vital Signs / Intake & Output Vital Signs (Last 4 hours): Vital Signs Temp Pulse Pulse Resp BP BP Pulse Ox 06/09/17 16:45 98 F 89 89 20 174/69 H 174/69 H 99 06/09/17 16:15 27 H 06/09/17 16:12 84 27 H 141/69 98 06/09/17 16:00 98.8 F 96 H 29 H 99 06/09/17 15:57 83 23 151/62 H 97 06/09/17 15:49 85 21 157/63 H 97 06/09/17 15:44 92 H 24 161/77 H 97 06/09/17 15:27 99 H 24 156/67 H 95 06/09/17 15:12 94 H 25 H 162/66 H 96 06/09/17 15:00 89 26 H 96 06/09/17 14:57 92 H 28 H 157/70 H 96 06/09/17 14:42 98 H 26 H 140/68 96 06/09/17 14:27 101 H 26 H 145/58 L 95 06/09/17 14:12 110 H 28 H 154/82 H 96 06/09/17 14:09 73 12 Intake and Output (Last 8hrs): Intake & Output 06/09/17 06/09/17 06/09/17 06:59 14:59 22:59 Intake Total 50 100 0 Output Total 220 245 40 Balance -170 -145 -40 Weight 253 lb Intake: Intake, IV Amount 100 0 Right Distal Port 100 0 Internal Jugular Right Proximal Port 0 0 Internal Jugular Oral 50 0 0 Output: Urine 220 245 40 Urethral (Saenz) 220 245 40 - Medications Active Medications: Active Medications Generic Name Dose Route Start Last Admin Trade Name Freq PRN Reason Stop Dose Admin Albuterol/Ipratropium 3 ml 05/28/17 18:45 06/09/17 13:43 Duoneb 3 Mg/0.5 Mg (3 Ml) Ud INH Not Given RQ6 [facility] Calcium Acetate 667 mg 06/01/17 17:00 06/09/17 12:00 Phoslo PO Not Given TIDCC [facility] Diltiazem HCl 30 mg 05/26/17 12:00 06/09/17 12:00 Cardizem PO Not Given Q6H [facility] Dorzolamide HCl 10 ml 05/22/17 18:00 06/09/17 14:36 Trusopt OU 1 drop TID [facility] Administration Epoetin Ken 10,000 unit 06/05/17 09:00 06/08/17 10:57 Procrit IV 10,000 unit MWF [facility] Administration Ferric Sodium Gluconate Complex 125 mg 06/03/17 14:00 06/09/17 09:57 Ferrlecit IVPB 06/11/17 14:01 125 mg DAILY [facility] Administration Montelukast Sodium 10 mg 05/23/17 10:00 06/09/17 09:52 Singulair PO 10 mg DAILY [facility] Administration Morphine Sulfate 1 mg 06/09/17 15:23 Morphine IVP Q4 PRN Pain, moderate (4-7) Multivitamins 1 tab 05/22/17 13:45 06/09/17 09:53 Hexavitamin PO 1 tab DAILY [facility] Administration Nystatin 1 applic 05/27/17 10:30 06/09/17 14:36 Nystop Topical Powder TOP 1 pow TID [facility] Administration Pantoprazole Sodium 40 mg 06/06/17 11:00 06/09/17 09:53 Protonix Inj IVP 40 mg DAILY [facility] Administration - Patient Studies Lab Studies: Lab Studies 06/09/17 06/09/17 06/09/17 Range/Units 06:24 06:24 06:24 WBC 12.2 H (4.8-10.8) K/uL RBC 2.72 L (3.80-5.20) Mil/uL Hgb 8.2 L (11.0-16.0) g/dL Hct 24.7 L (34.0-47.0) % MCV 90.9 (81.0-99.0) fL MCH 30.1 (27.0-31.0) pg MCHC 33.1 (33.0-37.0) g/dL RDW 16.2 H (11.5-14.5) % Plt Count 145 (130-400) K/uL MPV 7.9 (7.2-11.7) fL Neut % (Auto) 78.1 H (50.0-75.0) % Lymph % (Auto) 11.0 L (20.0-40.0) % [place] % (Auto) 8.9 (0.0-10.0) % Eos % (Auto) 1.0 (0.0-4.0) % Baso % (Auto) 1.0 (0.0-2.0) % Neut # 9.6 H (1.8-7.0) K/uL Lymph # 1.3 (1.0-4.3) K/uL [place] # 1.1 H (0.0-0.8) K/uL Eos # 0.1 (0.0-0.7) K/uL Baso # 0.1 (0.0-0.2) K/uL PT 14.3 H (9.7-12.2) SECONDS INR 1.3 APTT 27 (21-34) SECONDS Sodium 145 (132-148) mmol/L Potassium 3.9 (3.6-5.2) mmol/L Chloride 106 (98-107) mmol/L Carbon Dioxide 27 (22-30) mmol/L Anion Gap 16 (10-20) BUN 57 H (7-17) mg/dL Creatinine 2.9 H (0.7-1.2) MG/DL Est GFR ( Amer) 19 Est GFR (Non-Af Amer) 16 Random Glucose 92 (65-105) mg/dL Calcium 8.9 (8.6-10.4) mg/dl Phosphorus 4.1 (2.5-4.5) mg/dL Magnesium 2.2 (1.6-2.3) mg/dL Total Bilirubin 2.1 H (0.2-1.3) mg/dL AST 90 H (14-36) U/L ALT 101 H (9-52) U/L Alkaline Phosphatase 72 (38-126) U/L Total Protein 6.0 L (6.3-8.3) g/dL Albumin 3.2 L (3.5-5.0) g/dL Globulin 2.8 (2.2-3.9) gm/dL Albumin/Globulin Ratio 1.1 (1.0-2.1) Laboratory Results - last 24 hr 06/09/17 06/09/17 06/09/17 06:24 06:24 06:24 WBC 12.2 H RBC 2.72 L Hgb 8.2 L Hct 24.7 L MCV 90.9 MCH 30.1 MCHC 33.1 RDW 16.2 H Plt Count 145 MPV 7.9 Neut % (Auto) 78.1 H Lymph % (Auto) 11.0 L [place] % (Auto) 8.9 Eos % (Auto) 1.0 Baso % (Auto) 1.0 Neut # 9.6 H Lymph # 1.3 [place] # 1.1 H Eos # 0.1 Baso # 0.1 PT 14.3 H INR 1.3 APTT 27 Sodium 145 Potassium 3.9 Chloride 106 Carbon Dioxide 27 Anion Gap 16 BUN 57 H Creatinine 2.9 H Est GFR ( Amer) 19 Est GFR (Non-Af Amer) 16 Random Glucose 92 Calcium 8.9 Phosphorus 4.1 Magnesium 2.2 Total Bilirubin 2.1 H AST 90 H ALT 101 H Alkaline Phosphatase 72 Total Protein 6.0 L Albumin 3.2 L Globulin 2.8 Albumin/Globulin Ratio 1.1 Critical Care Progress Note - Nutrition Nutrition: Nutrition Category Date Time Status Dysphagia/Modified Consistency Diet [DIET] Diets 06/09/17 Lunch Active Attending/Attestation - Attestation I have personally seen and examined this patient.: Yes I have fully participated in the care of the patient.: Yes I have reviewed all pertinent clinical information: Yes Notes (Text): 06/09/17 17:43 Today: Friday, June 09, 2017 The Patient was seen and examined at the bedside, Medical records reviewed, and management issues were discussed and formulated with the house staff. I have reviewed all the relevant clinical, laboratory, hemodynamic, radiographic data and medications Events reviewed Patient is a 76 year old Female admitted to ICU with Acute respiratory failure, Now successfully extubated, Saturating well on nasal cannula ESRD on HD Underwent Perm a cath placement today Continue current antibiotic Continue cardiac Meds Maintain glycemic control Aggressive pulmonary toilet, chest PT, suctioning PT GI/DVT PPX Full Code Pain issues, skin care, head of the bed elevation, glycemic control were addressed. Agree with above treatment plans as transcribed in note Discussed with patients family the diagnosis, treatment plans and alternatives I concur with resident's assessment and plan of care as transcribed in Dr. Bruner note.
--- NOTE | 2017-06-10 01:24 | OP ---
PROCEDURE DATE: 06/09/2017 PREOPERATIVE DIAGNOSIS: Renal failure. POSTOPERATIVE DIAGNOSIS: Renal failure. PROCEDURE CARRIED OUT: Placement of PermCath, left jugular vein with C-arm fluoroscopy, ultrasound-guided puncture, and micropuncture technique. SURGEON: Palmer Tristan MD SHIELD OPERATOR: Werner Alas, resident. ANESTHESIOLOGIST: Mr. Gale. INDICATIONS: The patient is an elderly woman in the intensive care unit, requires a PermCath for dialysis. OPERATIVE FINDINGS: Using ultrasound guidance and micropuncture technique, left internal jugular vein was punctured. The right side had an indwelling triple-lumen catheter. After this had been accomplished, the guidewire was advanced centrally. A sheath dilator was passed over this which was curved and the catheter was positioned with its tip in the superior vena cava and right atrial junction. There was excellent flow. There were no operative complications or problems. Blood loss for the procedure was minimal, less than 15 mL. Operation carried out was PermCath, left jugular vein with C-arm fluoroscopy and ultrasound-guided puncture. Palmer Tristan Jr., MD
[2017-06-10] MEDS: Albuterol-Ipratrop 3 mg / 0.5 (3 ml) UD INH SCH ×4 (02:06→20:48)
[2017-06-10 06:16] LABS: BASO # 0.1 K/uL (0.0-0.2); EOS # 0.1 K/uL (0.0-0.7); HEMATOCRIT 26.4 % (34.0-47.0); LYMPH # 1.8 K/uL (1.0-4.3); LYMPH % 14.5 % (20.0-40.0); MEAN CELL VOLUME 91.9 fL (81.0-99.0); MEAN CORPUSCULAR HGB CONC 32.6 g/dL (33.0-37.0); MEAN PLATELET VOLUME 7.8 fL (7.2-11.7); MONO # 1.1 K/uL (0.0-0.8); MONO % 9.2 % (0.0-10.0); NRBC % 1.5 % (0.0-2.0); RED CELL DISTRIBUTION WIDTH 16.7 % (11.5-14.5); WHITE BLOOD COUNT 12.4 K/uL (4.8-10.8)
[2017-06-10 06:29] LABS: POTASSIUM 3.9 mmol/L (3.6-5.2)
[2017-06-10 06:31] LABS: BILIRUBIN,TOTAL 2.2 mg/dL (0.2-1.3); TOTAL PROTEIN 6.3 g/dL (6.3-8.3)
[2017-06-10 06:32] LABS: CALCIUM 9.2 mg/dl (8.6-10.4); MAGNESIUM 2.2 mg/dL (1.6-2.3); PHOSPHOROUS 4.1 mg/dL (2.5-4.5)
--- NOTE | 2017-06-10 08:19 | CP.PCM.PN ---
Subjective - Date & Time of Evaluation Date of Evaluation: 06/10/17 Time of Evaluation: 07:30 - Subjective Subjective: General Surgery Progress Note for Dr. Tristan Patient seen and examined today. No acute event overnight. Patient is s/p permacath placement POD #1. Patient is on high flow nasal cannula. She is awake and alert. She is unable to speak since extubation. She responds to verbal stimuli. Objective - Vital Signs/Intake and Output Vital Signs (last 24 hours): Temp Pulse Resp BP Pulse Ox 98.3 F 86 22 146/67 99 06/10/17 04:00 06/10/17 07:12 06/10/17 08:18 06/10/17 07:12 06/10/17 07:12 Intake and Output: 06/10/17 06/10/17 06:59 18:59 Intake Total 240 Output Total 120 30 Balance 120 -30 - Medications Medications: Current Medications Albuterol/Ipratropium (Duoneb 3 Mg/0.5 Mg (3 Ml) Ud) 3 ml INH RQ6 ALISA Last Admin: 06/10/17 08:14 Dose: 3 ml Calcium Acetate (Phoslo) 667 mg PO TIDCC ALISA Last Admin: 06/10/17 07:52 Dose: 667 mg Diltiazem HCl (Cardizem) 30 mg PO Q6H [facility] Last Admin: 06/10/17 05:34 Dose: 30 mg Dorzolamide HCl (Trusopt) 10 ml OU TID ALISA Last Admin: 06/09/17 18:27 Dose: 1 drop Epoetin Ken (Procrit) 10,000 unit IV MWF [facility] Last Admin: 06/08/17 10:57 Dose: 10,000 unit Ferric Sodium Gluconate Complex (Ferrlecit) 125 mg IVPB DAILY [facility] Stop: 06/11/17 14:01 Last Admin: 06/09/17 09:57 Dose: 125 mg Montelukast Sodium (Singulair) 10 mg PO DAILY [facility] Last Admin: 06/09/17 09:52 Dose: 10 mg Morphine Sulfate (Morphine) 1 mg IVP Q4 PRN PRN Reason: Pain, moderate (4-7) Multivitamins (Hexavitamin) 1 tab PO DAILY [facility] Last Admin: 06/09/17 09:53 Dose: 1 tab Nystatin (Nystop Topical Powder) 1 applic TOP TID [facility] Last Admin: 06/09/17 18:28 Dose: 1 pow Pantoprazole Sodium (Protonix Inj) 40 mg IVP DAILY [facility] Last Admin: 06/09/17 09:53 Dose: 40 mg - Labs Labs: 06/10/17 06:08 06/10/17 06:08 PT 14.3 SECONDS (9.7-12.2) H 06/09/17 06:24 INR 1.3 06/09/17 06:24 APTT 27 SECONDS (21-34) 06/09/17 06:24 - Constitutional Appears: No Acute Distress, Chronically Ill - Head Exam Head Exam: ATRAUMATIC, NORMOCEPHALIC - Eye Exam Eye Exam: Normal appearance - ENT Exam ENT Exam: Mucous Membranes Moist - Neck Exam Additional comments: R IJ TLC L IJ permacath - Respiratory Exam Respiratory Exam: NORMAL BREATHING PATTERN - Cardiovascular Exam Cardiovascular Exam: REGULAR RHYTHM - GI/Abdominal Exam GI & Abdominal Exam: Soft. absent: Tenderness Additional comments: R groin dialysis catheter still present - Neurological Exam Neurological Exam: Alert, Awake - Psychiatric Exam Psychiatric exam: Flat Affect - Skin Skin Exam: Dry, Intact, Warm Assessment and Plan - Assessment and Plan (Free Text) Plan: 76 F with PMH of ESRD on HD s/p permacath placement POD #1 -Remove R groin dialysis catheter today -Continue care as per ICU -Surgery signing off, reconsult if needed - Thank you for consult -DW Dr. Azalea Alas PGY1
[2017-06-10] MEDS: Multiple Vitamins Tab PO SCH (09:35)
[2017-06-10] MEDS: Dorzolamide 2% Opht Sol 10ml OU SCH ×3 (09:36→17:51)
[2017-06-10] MEDS: Ferric Sodium Gluconat Complex 62.5 mg/5 ml Vial IVPB SCH (09:43)
--- NOTE | 2017-06-10 10:19 | CP.CCUPN ---
<FrancKaroldevaughn E - Last Filed: 06/10/17 14:45> CCU Subjective - Physician Review Subjective (Free Text): Patient seen and examined at bedside. Patient is breathing on high flow oxygen, awake and attempting to speak. She responds to verbal stimuli. She admits to dry mouth requesting water. Full ROS could not be properly evaluated as the patient is still unable to verbalize post extubation. Patient was able to write on paper in order to ask what has been going on with her, which was explained to her. Patient reports b/l leg discomfort and wishes to be out of bed. Patient was given lemonade and apple sauce during the encounter. CCU Objective - Vital Signs / Intake & Output Vital Signs (Last 4 hours): Vital Signs Temp Pulse Resp BP Pulse Ox 06/10/17 10:00 86 14 100 06/10/17 09:58 91 H 15 153/69 H 99 06/10/17 09:42 85 29 H 153/70 H 99 06/10/17 09:27 90 26 H 146/65 98 06/10/17 09:12 86 28 H 152/68 H 98 06/10/17 09:00 92 H 10 L 97 06/10/17 08:57 90 13 159/61 H 97 06/10/17 08:43 87 17 158/74 H 98 06/10/17 08:27 86 14 154/80 H 98 06/10/17 08:18 22 06/10/17 08:00 98.6 F 88 21 99 06/10/17 07:58 84 17 168/66 H 99 06/10/17 07:42 90 26 H 152/65 H 98 06/10/17 07:27 88 21 140/75 97 06/10/17 07:12 86 22 146/67 99 06/10/17 07:00 88 19 99 06/10/17 06:57 89 19 149/68 98 06/10/17 06:42 93 H 24 140/68 98 06/10/17 06:27 90 29 H 135/62 99 Intake and Output (Last 8hrs): Intake & Output 06/09/17 06/10/17 06/10/17 22:59 06:59 14:59 Intake Total 290 Output Total 115 90 30 Balance 175 -90 -30 Weight 253 lb Intake: Intake, IV Amount 0 Right Distal Port 0 Internal Jugular Right Proximal Port 0 Internal Jugular Oral 290 Output: Urine 115 90 30 Urethral (Saenz) 115 90 30 Other: # Bowel Movements 1 - Physical Exam Head: Positive for: Atraumatic, Normocephalic Pupils: Positive for: PERRL Extroacular Muscles: Positive for: EOMI Mouth: Positive for: Moist Mucous Membranes Respiratory/Chest: Positive for: Rales. Negative for: Respiratory Distress, Accessory Muscle Use Cardiovascular: Positive for: Regular Rate and Rhythm, Normal S1, S2 Abdomen: Positive for: Normal Bowel Sounds. Negative for: Tenderness Breast/Axillary: Positive for: Discoloration (ecchymosis left lower breast) Upper Extremity: Positive for: Edema, Swelling, Other (ecchymosis b/l; faint pulses bilaterally). Negative for: Normal Inspection (B/L upper extremities ecchymosis, resolving) Lower Extremity: Positive for: NORMAL PULSES. Negative for: Edema Neurological: Positive for: GCS=15, Other (follows commands) Skin: Positive for: Warm, Other (Ecchymosis on bilateral upper extremities and left lower breast area) Psychiatric: Positive for: Alert, Oriented x 3 - Medications Active Medications: Active Medications Generic Name Dose Route Start Last Admin Trade Name Freq PRN Reason Stop Dose Admin Albuterol/Ipratropium 3 ml 05/28/17 18:45 06/10/17 08:14 Duoneb 3 Mg/0.5 Mg (3 Ml) Ud INH 3 ml RQ6 ALISA Administration Calcium Acetate 667 mg 06/01/17 17:00 06/10/17 07:52 Phoslo PO 667 mg TIDCC ALISA Administration Diltiazem HCl 30 mg 05/26/17 12:00 06/10/17 05:34 Cardizem PO 30 mg Q6H ALISA Administration Dorzolamide HCl 10 ml 05/22/17 18:00 06/10/17 09:36 Trusopt OU 1 drop TID ALISA Administration Epoetin Ken 10,000 unit 06/05/17 09:00 06/08/17 10:57 Procrit IV 10,000 unit MWF ALISA Administration Ferric Sodium Gluconate Complex 125 mg 06/03/17 14:00 06/10/17 09:43 Ferrlecit IVPB 06/11/17 14:01 125 mg DAILY ALISA Administration Heparin Sodium (Porcine) 5,000 units 06/10/17 10:30 Heparin SC Q12 ALISA Montelukast Sodium 10 mg 05/23/17 10:00 06/10/17 09:36 Singulair PO 10 mg DAILY ALISA Administration Morphine Sulfate 1 mg 06/09/17 15:23 Morphine IVP Q4 PRN Pain, moderate (4-7) Multivitamins 1 tab 05/22/17 13:45 06/10/17 09:35 Hexavitamin PO 1 tab DAILY ALISA Administration Nystatin 1 applic 05/27/17 10:30 06/10/17 09:35 Nystop Topical Powder TOP 1 pow TID ALISA Administration Pantoprazole Sodium 40 mg 06/06/17 11:00 06/10/17 09:36 Protonix Inj IVP 40 mg DAILY ALISA Administration - Patient Studies Lab Studies: Lab Studies 06/10/17 06/10/17 Range/Units 06:08 06:08 WBC 12.4 H (4.8-10.8) K/uL RBC 2.87 L (3.80-5.20) Mil/uL Hgb 8.6 L (11.0-16.0) g/dL Hct 26.4 L (34.0-47.0) % MCV 91.9 (81.0-99.0) fL MCH 30.0 (27.0-31.0) pg MCHC 32.6 L (33.0-37.0) g/dL RDW 16.7 H (11.5-14.5) % Plt Count 155 (130-400) K/uL MPV 7.8 (7.2-11.7) fL Neut % (Auto) 74.3 (50.0-75.0) % Lymph % (Auto) 14.5 L (20.0-40.0) % [place] % (Auto) 9.2 (0.0-10.0) % Eos % (Auto) 1.0 (0.0-4.0) % Baso % (Auto) 1.0 (0.0-2.0) % Neut # 9.2 H (1.8-7.0) K/uL Lymph # 1.8 (1.0-4.3) K/uL [place] # 1.1 H (0.0-0.8) K/uL Eos # 0.1 (0.0-0.7) K/uL Baso # 0.1 (0.0-0.2) K/uL Sodium 143 (132-148) mmol/L Potassium 3.9 (3.6-5.2) mmol/L Chloride 101 (98-107) mmol/L Carbon Dioxide 29 (22-30) mmol/L Anion Gap 18 (10-20) BUN 52 H (7-17) mg/dL Creatinine 2.7 H (0.7-1.2) MG/DL Est GFR ( Amer) 21 Est GFR (Non-Af Amer) 17 Random Glucose 94 (65-105) mg/dL Calcium 9.2 (8.6-10.4) mg/dl Phosphorus 4.1 (2.5-4.5) mg/dL Magnesium 2.2 (1.6-2.3) mg/dL Total Bilirubin 2.2 H (0.2-1.3) mg/dL AST 108 H (14-36) U/L ALT 120 H (9-52) U/L Alkaline Phosphatase 68 (38-126) U/L Total Protein 6.3 (6.3-8.3) g/dL Albumin 3.2 L (3.5-5.0) g/dL Globulin 3.1 (2.2-3.9) gm/dL Albumin/Globulin Ratio 1.0 (1.0-2.1) Laboratory Results - last 24 hr 06/10/17 06/10/17 06:08 06:08 WBC 12.4 H RBC 2.87 L Hgb 8.6 L Hct 26.4 L MCV 91.9 MCH 30.0 MCHC 32.6 L RDW 16.7 H Plt Count 155 MPV 7.8 Neut % (Auto) 74.3 Lymph % (Auto) 14.5 L [place] % (Auto) 9.2 Eos % (Auto) 1.0 Baso % (Auto) 1.0 Neut # 9.2 H Lymph # 1.8 [place] # 1.1 H Eos # 0.1 Baso # 0.1 Sodium 143 Potassium 3.9 Chloride 101 Carbon Dioxide 29 Anion Gap 18 BUN 52 H Creatinine 2.7 H Est GFR ( Amer) 21 Est GFR (Non-Af Amer) 17 Random Glucose 94 Calcium 9.2 Phosphorus 4.1 Magnesium 2.2 Total Bilirubin 2.2 H AST 108 H ALT 120 H Alkaline Phosphatase 68 Total Protein 6.3 Albumin 3.2 L Globulin 3.1 Albumin/Globulin Ratio 1.0 Review of Systems - Constitutional Constitutional: Weakness. absent: Fever, Chills, Sweats - EENT Ears: absent: Dizziness Nose/Mouth/Throat: Hoarsness - Cardiovascular Cardiovascular: absent: Chest Pain, Chest Pain at Rest, Dyspnea, Palpitations - Respiratory Respiratory: absent: Cough - Gastrointestinal Gastrointestinal: absent: Abdominal Pain, Cramping, Diarrhea, Nausea, Vomiting - Neurological Neurological: Weakness. absent: Dizziness, Headaches - Endocrine Endocrine: absent: Fatigue, Palpitations Critical Care Progress Note - Nutrition Nutrition: Nutrition Category Date Time Status Dysphagia/Modified Consistency Diet [DIET] Diets 06/09/17 Lunch Active Assessment/Plan - Assessment and Plan (Free Text) Assessment: 76 year old female with PMHx of Ashtma, COPD, new onset of A. fibrillation, HTN , cardiomegaly with diastolic heart failure, DJD and dementia presenting with acute respiratory distress secondary to COPD exacerbation resulting in intubation on 05/22/2017. Extubated on 06/05. Patient remains on vapotherma high flow oxygen Plan: Pulm: Acute respiratory failure scondary to COPD exacerbation (Stable) - Intubated on admission (05/22/2019) --> extubated on 05/31/17 and placed on biPAP --> reintubated on 06/01/17 --> extubated on 06/05/17 --> Vapotherma high flow oxygen and now currently on nasal cannula - 06/05 CXR: Prominent diffuse increased interstitial lung markings suggestive for moderate venous congestion with bibasilar airspace opacities. Bilateral hilar prominence. Small bilateral pleural effusions; left greater than right. Cardiomegaly. - Chest CT (06/03/17): Atelectasis in the left lower lobe. Groundglass pneumonitis in the right upper lobe with hypoventilatory changes in the right lung base. Nodular opacities in emily right middle lobe. Rommend follow- up chest CT at 3-6 months to confirm persistnce. If stable, chest CT at 2 and 4 years. Extensive soft tissue stranding likely representing hemorrhage involving the left chest wall and upper arm in this patient with ecchymosis in the above described areas. Cardiomegaly. Medications/Management: Mucomyst 4 ml RQ6 DuoNeb 3 ml RQ6 Singulair 10 mg PO daily FIO2 was decreased to 30% (06/10/17) GI: - Stool occult blood positive (06/02/17) --> decreased hgb is currently trending up - stopped all anti-platelet medications ASA and Lovenox due to anemia; anemia is resolving and heparin 5,000 units Q12H was started today for DVT prophylaxis - Protonix 40 mg IVP daily 06/01 C. diff toxin negative CV: - Acute on chronic decompensated diastolic heart failure, On daily HD - Atrial fibrillation rate controlled with Cardizem 30 mg PO daily ID: - Bhargavi rash under bilateral breast: Nystatin powder - Leukocytosis trending down - Sputum culture: yeast positive, scant growth - Urine culture: no growth Medications Zoxyn 2.25 gm IV Q8h Heme: Anemia; Stool occult blood positive - Bilateral ecchymosis in upper extremities with edema now extending into trunk. - Stopped all anti-platelet medications ASA and Lovenox due to anemia; anemia is resolving and heparin 5,000 units Q12H was started today for DVT - transfused with 2 units of pRBC 06/01, 1 unit pRBC 06/02, 2 units 06/03 - 05/31 venous duplex scan of bilateral upper extremities: Right - no abnomral findings. Left - not done due to swelling. Medications Ferrlecit 125 mg IVPB daily Renal: elevated BUN and Cr - Dr. Ledesma on board --> help appreciated - recommendation for permacath placement (06/08/17) - Currently, on daily HD via permacath - Letty for strict I/O's Medications Phoslo 556 mg PO TIDCC Procrit 10,00 units IV MWF Ferrlecit 125 mg IVPB daily Endo: no acute issues Neuro: no acute issues, responsive to verbal stimuli. Avoid neurosedative medications like benzodiazapines Prophylaxis: - SCD, anticoagulation contraindicated - GI prophylaxis - Protonix 40 mg IV daily - Multivitamins -PT/OT and out of bed activity ordered - Code status - full code <Joseph Ladd P - Last Filed: 06/10/17 17:30> CCU Objective - Vital Signs / Intake & Output Vital Signs (Last 4 hours): Vital Signs Temp Pulse Pulse Resp BP BP Pulse Ox 06/10/17 16:29 87 97 06/10/17 16:27 30 H 06/10/17 16:20 95 H 33 H 119/75 99 06/10/17 16:16 98 H 32 H 85/66 L 99 06/10/17 16:00 97.6 F 89 34 H 98 06/10/17 15:46 99 H 34 H 159/76 H 97 06/10/17 15:45 159/76 H 100 06/10/17 15:30 92 H 14 168/103 H 168/103 H 98 06/10/17 15:17 86 13 155/71 H 95 06/10/17 15:15 155/71 H 100 06/10/17 15:01 81 31 H 148/78 96 06/10/17 15:00 98.4 F 85 86 33 H 142/72 148/78 95 06/10/17 14:59 83 29 H 148/72 96 06/10/17 14:00 92 H 19 96 06/10/17 13:59 91 H 11 L 146/63 94 L Intake and Output (Last 8hrs): Intake & Output 06/10/17 06/10/17 06/10/17 06:59 14:59 22:59 Intake Total 460 0 Output Total 90 105 30 Balance -90 355 -30 Weight 253 lb Intake: Intake, IV Amount 100 0 Right Distal Port 100 0 Internal Jugular Oral 360 0 Output: Urine 90 105 30 Urethral (Saenz) 90 105 30 Other: # Bowel Movements 0 0 - Medications Active Medications: Active Medications Generic Name Dose Route Start Last Admin Trade Name Tone PRN Reason Stop Dose Admin Albuterol/Ipratropium 3 ml 05/28/17 18:45 06/10/17 13:20 Duoneb 3 Mg/0.5 Mg (3 Ml) Ud INH 3 ml RQ6 ALISA Administration Calcium Acetate 667 mg 06/01/17 17:00 06/10/17 11:47 Phoslo PO 667 mg TIDCC ALISA Administration Diltiazem HCl 30 mg 05/26/17 12:00 06/10/17 11:47 Cardizem PO 30 mg Q6H ALISA Administration Dorzolamide HCl 10 ml 05/22/17 18:00 06/10/17 13:23 Trusopt OU 1 drop TID ALISA Administration Epoetin Ken 10,000 unit 06/05/17 09:00 06/10/17 16:35 Procrit IV 10,000 unit MWF ALISA Administration Ferric Sodium Gluconate Complex 125 mg 06/03/17 14:00 06/10/17 09:43 Ferrlecit IVPB 06/11/17 14:01 125 mg DAILY ALISA Administration Heparin Sodium (Porcine) 5,000 units 06/10/17 10:30 06/10/17 10:36 Heparin SC 5,000 units Q12 ALISA Administration Heparin Sodium (Porcine) 3,700 units 06/10/17 16:00 06/10/17 16:34 Heparin IVP 3,700 units DAILY ALISA Administration Montelukast Sodium 10 mg 05/23/17 10:00 06/10/17 09:36 Singulair PO 10 mg DAILY ALISA Administration Morphine Sulfate 1 mg 06/09/17 15:23 Morphine IVP Q4 PRN Pain, moderate (4-7) Multivitamins 1 tab 05/22/17 13:45 06/10/17 09:35 Hexavitamin PO 1 tab DAILY ALISA Administration Nystatin 1 applic 05/27/17 10:30 06/10/17 13:23 Nystop Topical Powder TOP 1 pow TID ALISA Administration Pantoprazole Sodium 40 mg 06/06/17 11:00 06/10/17 09:36 Protonix Inj IVP 40 mg DAILY ALISA Administration - Patient Studies Lab Studies: Lab Studies 06/10/17 06/10/17 Range/Units 06:08 06:08 WBC 12.4 H (4.8-10.8) K/uL RBC 2.87 L (3.80-5.20) Mil/uL Hgb 8.6 L (11.0-16.0) g/dL Hct 26.4 L (34.0-47.0) % MCV 91.9 (81.0-99.0) fL MCH 30.0 (27.0-31.0) pg MCHC 32.6 L (33.0-37.0) g/dL RDW 16.7 H (11.5-14.5) % Plt Count 155 (130-400) K/uL MPV 7.8 (7.2-11.7) fL Neut % (Auto) 74.3 (50.0-75.0) % Lymph % (Auto) 14.5 L (20.0-40.0) % [place] % (Auto) 9.2 (0.0-10.0) % Eos % (Auto) 1.0 (0.0-4.0) % Baso % (Auto) 1.0 (0.0-2.0) % Neut # 9.2 H (1.8-7.0) K/uL Lymph # 1.8 (1.0-4.3) K/uL [place] # 1.1 H (0.0-0.8) K/uL Eos # 0.1 (0.0-0.7) K/uL Baso # 0.1 (0.0-0.2) K/uL Sodium 143 (132-148) mmol/L Potassium 3.9 (3.6-5.2) mmol/L Chloride 101 (98-107) mmol/L Carbon Dioxide 29 (22-30) mmol/L Anion Gap 18 (10-20) BUN 52 H (7-17) mg/dL Creatinine 2.7 H (0.7-1.2) MG/DL Est GFR ( Amer) 21 Est GFR (Non-Af Amer) 17 Random Glucose 94 (65-105) mg/dL Calcium 9.2 (8.6-10.4) mg/dl Phosphorus 4.1 (2.5-4.5) mg/dL Magnesium 2.2 (1.6-2.3) mg/dL Total Bilirubin 2.2 H (0.2-1.3) mg/dL AST 108 H (14-36) U/L ALT 120 H (9-52) U/L Alkaline Phosphatase 68 (38-126) U/L Total Protein 6.3 (6.3-8.3) g/dL Albumin 3.2 L (3.5-5.0) g/dL Globulin 3.1 (2.2-3.9) gm/dL Albumin/Globulin Ratio 1.0 (1.0-2.1) Laboratory Results - last 24 hr 06/10/17 06/10/17 06:08 06:08 WBC 12.4 H RBC 2.87 L Hgb 8.6 L Hct 26.4 L MCV 91.9 MCH 30.0 MCHC 32.6 L RDW 16.7 H Plt Count 155 MPV 7.8 Neut % (Auto) 74.3 Lymph % (Auto) 14.5 L [place] % (Auto) 9.2 Eos % (Auto) 1.0 Baso % (Auto) 1.0 Neut # 9.2 H Lymph # 1.8 [place] # 1.1 H Eos # 0.1 Baso # 0.1 Sodium 143 Potassium 3.9 Chloride 101 Carbon Dioxide 29 Anion Gap 18 BUN 52 H Creatinine 2.7 H Est GFR ( Amer) 21 Est GFR (Non-Af Amer) 17 Random Glucose 94 Calcium 9.2 Phosphorus 4.1 Magnesium 2.2 Total Bilirubin 2.2 H AST 108 H ALT 120 H Alkaline Phosphatase 68 Total Protein 6.3 Albumin 3.2 L Globulin 3.1 Albumin/Globulin Ratio 1.0 Critical Care Progress Note - Nutrition Nutrition: Nutrition Category Date Time Status Dysphagia/Modified Consistency Diet [DIET] Diets 06/09/17 Lunch Active Attending/Attestation - Attestation I have personally seen and examined this patient.: Yes I have fully participated in the care of the patient.: Yes I have reviewed all pertinent clinical information: Yes Notes (Text): 06/10/17 17:26 No events, patient follows commands. Will try reducing FIO2 from high flow, and then try NC, if patient tolerates NC o2 could be transferred to floor Heparin suq started as DVT prophylaxis as her hemoglobin has been stable Patient is today currently getting HD Patient is off the Abx currently Will try OOB
--- NOTE | 2017-06-10 10:34 | CP.PCM.PN ---
<VipulNealjesi - Last Filed: 06/10/17 10:29> Subjective - Date & Time of Evaluation Date of Evaluation: 06/10/17 Time of Evaluation: 07:33 - Subjective Subjective: Cardiology Progress Note- Dr. Hart's service Pt seen and examined in no apparent distress. Per critical care team, after long discussion, there has not been increased ecchymosis noted in the past couple of days and thus anticoagulation for DVT prophylaxis to the restarted. Patient alert but unable to actually speak due to dry throat s/p extubation. Patient able to mouth and ask how long her throat will feel dry. She denies fevers, chills, nausea, chest pain or palpitations at this time. Objective - Vital Signs/Intake and Output Vital Signs (last 24 hours): Temp Pulse Resp BP Pulse Ox 98.6 F 86 14 153/69 H 100 06/10/17 08:00 06/10/17 10:00 06/10/17 10:00 06/10/17 09:58 06/10/17 10:00 Intake and Output: 06/10/17 06/10/17 06:59 18:59 Intake Total 240 Output Total 120 30 Balance 120 -30 - Medications Medications: Current Medications Albuterol/Ipratropium (Duoneb 3 Mg/0.5 Mg (3 Ml) Ud) 3 ml INH RQ6 [facility] Last Admin: 06/10/17 08:14 Dose: 3 ml Calcium Acetate (Phoslo) 667 mg PO TIDCC [facility] Last Admin: 06/10/17 07:52 Dose: 667 mg Diltiazem HCl (Cardizem) 30 mg PO Q6H [facility] Last Admin: 06/10/17 05:34 Dose: 30 mg Dorzolamide HCl (Trusopt) 10 ml OU TID [facility] Last Admin: 06/10/17 09:36 Dose: 1 drop Epoetin Ken (Procrit) 10,000 unit IV MWF [facility] Last Admin: 06/08/17 10:57 Dose: 10,000 unit Ferric Sodium Gluconate Complex (Ferrlecit) 125 mg IVPB DAILY [facility] Stop: 06/11/17 14:01 Last Admin: 06/10/17 09:43 Dose: 125 mg Heparin Sodium (Porcine) (Heparin) 5,000 units SC Q12 [facility] Montelukast Sodium (Singulair) 10 mg PO DAILY [facility] Last Admin: 06/10/17 09:36 Dose: 10 mg Morphine Sulfate (Morphine) 1 mg IVP Q4 PRN PRN Reason: Pain, moderate (4-7) Multivitamins (Hexavitamin) 1 tab PO DAILY [facility] Last Admin: 06/10/17 09:35 Dose: 1 tab Nystatin (Nystop Topical Powder) 1 applic TOP TID [facility] Last Admin: 06/10/17 09:35 Dose: 1 pow Pantoprazole Sodium (Protonix Inj) 40 mg IVP DAILY [facility] Last Admin: 06/10/17 09:36 Dose: 40 mg - Labs Labs: 06/10/17 06:08 06/10/17 06:08 PT 14.3 SECONDS (9.7-12.2) H 06/09/17 06:24 INR 1.3 06/09/17 06:24 APTT 27 SECONDS (21-34) 06/09/17 06:24 - Constitutional Appears: Non-toxic, No Acute Distress - Head Exam Head Exam: ATRAUMATIC, NORMAL INSPECTION, NORMOCEPHALIC - Eye Exam Eye Exam: EOMI, Normal appearance, PERRL - ENT Exam ENT Exam: Mucous Membranes Moist - Neck Exam Neck Exam: Full ROM - Respiratory Exam Respiratory Exam: absent: Wheezes - Cardiovascular Exam Cardiovascular Exam: Irregular Rhythm, +S1, +S2 - GI/Abdominal Exam GI & Abdominal Exam: Soft, Normal Bowel Sounds - Exam Additional comments: hunt in place - Extremities Exam Extremities Exam: Pedal Edema. absent: Full ROM Additional comments: ecchymosis on arms bilaterally- mildly improved - Back Exam Back Exam: absent: Full ROM - Neurological Exam Neurological Exam: Alert, Awake - Psychiatric Exam Psychiatric exam: Flat Affect - Skin Skin Exam: Dry, Warm Assessment and Plan (1) Atrial fibrillation, new onset Status: Acute (2) CHF (congestive heart failure) Status: Chronic (3) Elevated troponin Status: Acute (4) Prophylactic measure Status: Acute - Assessment and Plan (Free Text) Assessment: Atrial fibrillation, new onset Assessment & Plan: Rate controlled on Diltiazem CHADs Score of 5- Patient off Lovenox due to anemia and new onset ecchymosis. Will continue to monitor. On Ferrlecit for Anemia Status: Acute CHF (congestive heart failure) Assessment & Plan: CXR 06/09 : stable cardiomegaly, small bilateral pleural effusions noted EF 57.8% Cont to monitor on Lasix PRN Status: Acute Blood pressure elevated Assessment & Plan: Blood pressure has been elevated for most of the morning. Will not treat acute rises in blood pressure. Will continue to monitor at this time and then assess. Considerations for pain control and to minimize need for fluid administration . Elevated troponin Assessment & Plan: On admission elevated; likely secondary to then CHF exacerbation Cont to monitor Status: Acute Prophylactic measure Assessment & Plan: Heparin SC 5000 Q12 restarted today Protonix 40 mg IV daily Status: Acute Discussed with attending. All management and planning per Dr. Hart <Ish Hart - Last Filed: 06/11/17 21:57> Objective - Vital Signs/Intake and Output Vital Signs (last 24 hours): Temp Pulse Resp BP Pulse Ox 98 F 94 H 20 118/68 99 06/11/17 15:00 06/11/17 15:00 06/11/17 15:00 06/11/17 15:00 06/11/17 15:00 Intake and Output: 06/11/17 06/12/17 18:59 06:59 Intake Total 220 Output Total 30 Balance 190 - Medications Medications: Current Medications Albuterol/Ipratropium (Duoneb 3 Mg/0.5 Mg (3 Ml) Ud) 3 ml INH RQ6 [facility] Last Admin: 06/11/17 19:18 Dose: 3 ml Calcium Acetate (Phoslo) 667 mg PO TIDCC [facility] Last Admin: 06/11/17 18:00 Dose: 667 mg Diltiazem HCl (Cardizem) 30 mg PO Q6H [facility] Last Admin: 06/11/17 18:45 Dose: 30 mg Dorzolamide HCl (Trusopt) 10 ml OU TID [facility] Last Admin: 06/11/17 18:46 Dose: 1 drop Epoetin Ken (Procrit) 10,000 unit IV MWF [facility] Last Admin: 06/10/17 16:35 Dose: 10,000 unit Heparin Sodium (Porcine) (Heparin) 5,000 units SC Q12 [facility] Last Admin: 06/11/17 11:01 Dose: 5,000 units Heparin Sodium (Porcine) (Heparin) 3,700 units IVP DAILY [facility] Last Admin: 06/10/17 16:34 Dose: 3,700 units Montelukast Sodium (Singulair) 10 mg PO DAILY [facility] Last Admin: 06/11/17 10:59 Dose: 10 mg Morphine Sulfate (Morphine) 1 mg IVP Q4 PRN PRN Reason: Pain, moderate (4-7) Last Admin: 06/11/17 16:54 Dose: 1 mg Multivitamins (Hexavitamin) 1 tab PO DAILY [facility] Last Admin: 06/11/17 10:59 Dose: 1 tab Pantoprazole Sodium (Protonix Inj) 40 mg IVP DAILY [facility] Last Admin: 06/11/17 10:59 Dose: 40 mg - Labs Labs: 06/11/17 06:19 06/11/17 06:19 PT 14.3 SECONDS (9.7-12.2) H 06/09/17 06:24 INR 1.3 06/09/17 06:24 APTT 27 SECONDS (21-34) 06/09/17 06:24 Assessment and Plan - Assessment and Plan (Free Text) Assessment: Patient seen and evaluated with the medical records custodian Plan of care as documented
--- NOTE | 2017-06-10 11:38 | CP.PCM.PN ---
Subjective - Date & Time of Evaluation Date of Evaluation: 06/10/17 Time of Evaluation: 11:00 - Subjective Subjective: Patient was seen and examined in ICU. Patient is easily arousable but not very communicative. Patient appears comfortable and is lying in bed. Objective - Vital Signs/Intake and Output Vital Signs (last 24 hours): Temp Pulse Resp BP Pulse Ox 98.6 F 86 20 153/69 H 100 06/10/17 08:00 06/10/17 10:00 06/10/17 10:20 06/10/17 09:58 06/10/17 10:00 Intake and Output: 06/10/17 06/10/17 06:59 18:59 Intake Total 240 Output Total 120 30 Balance 120 -30 - Medications Medications: Current Medications Albuterol/Ipratropium (Duoneb 3 Mg/0.5 Mg (3 Ml) Ud) 3 ml INH RQ6 [facility] Last Admin: 06/10/17 08:14 Dose: 3 ml Calcium Acetate (Phoslo) 667 mg PO TIDCC [facility] Last Admin: 06/10/17 07:52 Dose: 667 mg Diltiazem HCl (Cardizem) 30 mg PO Q6H [facility] Last Admin: 06/10/17 05:34 Dose: 30 mg Dorzolamide HCl (Trusopt) 10 ml OU TID [facility] Last Admin: 06/10/17 09:36 Dose: 1 drop Epoetin Ken (Procrit) 10,000 unit IV MWF [facility] Last Admin: 06/08/17 10:57 Dose: 10,000 unit Ferric Sodium Gluconate Complex (Ferrlecit) 125 mg IVPB DAILY [facility] Stop: 06/11/17 14:01 Last Admin: 06/10/17 09:43 Dose: 125 mg Heparin Sodium (Porcine) (Heparin) 5,000 units SC Q12 [facility] Last Admin: 06/10/17 10:36 Dose: 5,000 units Montelukast Sodium (Singulair) 10 mg PO DAILY [facility] Last Admin: 06/10/17 09:36 Dose: 10 mg Morphine Sulfate (Morphine) 1 mg IVP Q4 PRN PRN Reason: Pain, moderate (4-7) Multivitamins (Hexavitamin) 1 tab PO DAILY [facility] Last Admin: 06/10/17 09:35 Dose: 1 tab Nystatin (Nystop Topical Powder) 1 applic TOP TID [facility] Last Admin: 06/10/17 09:35 Dose: 1 pow Pantoprazole Sodium (Protonix Inj) 40 mg IVP DAILY [facility] Last Admin: 06/10/17 09:36 Dose: 40 mg - Labs Labs: 06/10/17 06:08 06/10/17 06:08 PT 14.3 SECONDS (9.7-12.2) H 06/09/17 06:24 INR 1.3 06/09/17 06:24 APTT 27 SECONDS (21-34) 06/09/17 06:24 - Head Exam Head Exam: ATRAUMATIC, NORMOCEPHALIC - Eye Exam Eye Exam: Normal appearance - ENT Exam ENT Exam: Mucous Membranes Moist - Neck Exam Additional comments: Triple-lumen present. - Respiratory Exam Respiratory Exam: Decreased Breath Sounds - Cardiovascular Exam Cardiovascular Exam: REGULAR RHYTHM, +S1, +S2 - GI/Abdominal Exam GI & Abdominal Exam: Soft - Extremities Exam Extremities Exam: absent: Pedal Edema - Neurological Exam Neurological Exam: Awake Assessment and Plan (1) CEZAR (acute kidney injury) Assessment & Plan: Patient developed acute renal failure. Patient is currently on hemodialysis. Nephrology is on board. Status: Acute (2) Pneumonia Assessment & Plan: Patient was treated with Zosyn. Monitor off antibiotics now.. Status: Acute (3) Acute respiratory failure with hypoxia and hypercapnia Assessment & Plan: Patient was intubated and extubated twice. Now patient is monitored on oxygen by nasal cannula. Respiratory status stable. Continue to monitor. Status: Acute (4) COPD exacerbation Assessment & Plan: Continue nebulizing treatment. Status post extubation. Status: Acute (5) Atrial fibrillation, new onset Assessment & Plan: Rate controlled. Not on anticoagulation because of anemia and ecchymosis. Status: Acute (6) CHF (congestive heart failure) Assessment & Plan: Patient is compensated. Continue current medical management. Status: Chronic (7) Elevated WBCs Assessment & Plan: Monitor off antibiotics Status: Acute (8) History of hyperlipidemia Status: Acute (9) History of hypertension Assessment & Plan: Continue to monitor. Status: Acute
[2017-06-10] MEDS ORDERED: Metoprolol 1 mg/ml Inj IVP ONE (14:10)
--- NOTE | 2017-06-10 16:02 | CP.PCM.PN ---
Subjective - Date & Time of Evaluation Date of Evaluation: 06/10/17 Time of Evaluation: 14:40 - Subjective Subjective: on HD lethargic does not respond to questions unable to obtain ROS due to above minimal u/o being recorded Objective - Vital Signs/Intake and Output Vital Signs (last 24 hours): Temp Pulse Resp BP Pulse Ox 98.4 F 86 25 H 159/76 H 100 06/10/17 15:00 06/10/17 15:00 06/10/17 15:00 06/10/17 15:45 06/10/17 15:45 Intake and Output: 06/10/17 06/10/17 06:59 18:59 Intake Total 240 Output Total 120 30 Balance 120 -30 - Medications Medications: Current Medications Albuterol/Ipratropium (Duoneb 3 Mg/0.5 Mg (3 Ml) Ud) 3 ml INH RQ6 [facility] Last Admin: 06/10/17 13:20 Dose: 3 ml Calcium Acetate (Phoslo) 667 mg PO TIDCC [facility] Last Admin: 06/10/17 11:47 Dose: 667 mg Diltiazem HCl (Cardizem) 30 mg PO Q6H [facility] Last Admin: 06/10/17 11:47 Dose: 30 mg Dorzolamide HCl (Trusopt) 10 ml OU TID [facility] Last Admin: 06/10/17 13:23 Dose: 1 drop Epoetin Ken (Procrit) 10,000 unit IV MWF [facility] Last Admin: 06/08/17 10:57 Dose: 10,000 unit Ferric Sodium Gluconate Complex (Ferrlecit) 125 mg IVPB DAILY [facility] Stop: 06/11/17 14:01 Last Admin: 06/10/17 09:43 Dose: 125 mg Heparin Sodium (Porcine) (Heparin) 5,000 units SC Q12 [facility] Last Admin: 06/10/17 10:36 Dose: 5,000 units Montelukast Sodium (Singulair) 10 mg PO DAILY [facility] Last Admin: 06/10/17 09:36 Dose: 10 mg Morphine Sulfate (Morphine) 1 mg IVP Q4 PRN PRN Reason: Pain, moderate (4-7) Multivitamins (Hexavitamin) 1 tab PO DAILY [facility] Last Admin: 06/10/17 09:35 Dose: 1 tab Nystatin (Nystop Topical Powder) 1 applic TOP TID [facility] Last Admin: 06/10/17 13:23 Dose: 1 pow Pantoprazole Sodium (Protonix Inj) 40 mg IVP DAILY [facility] Last Admin: 06/10/17 09:36 Dose: 40 mg - Labs Labs: 06/10/17 06:08 06/10/17 06:08 PT 14.3 SECONDS (9.7-12.2) H 06/09/17 06:24 INR 1.3 06/09/17 06:24 APTT 27 SECONDS (21-34) 06/09/17 06:24 - Constitutional Appears: Confused, Chronically Ill - ENT Exam ENT Exam: Mucous Membranes Moist - Neck Exam Neck Exam: Full ROM. absent: Lymphadenopathy - Respiratory Exam Respiratory Exam: Decreased Breath Sounds. absent: Accessory Muscle Use - Cardiovascular Exam Cardiovascular Exam: REGULAR RHYTHM. absent: Rubs - GI/Abdominal Exam GI & Abdominal Exam: Distended, Soft. absent: Tenderness - Extremities Exam Extremities Exam: absent: Pedal Edema - Neurological Exam Neurological Exam: absent: Alert, Awake Assessment and Plan - Assessment and Plan (Free Text) Assessment: eleazar, on dialysis minimal u/o congestive heart failure repeat HD in am f/u xray
[2017-06-10] MEDS: EPOETIN ALFA 10,000 UNIT/ML ML IV SCH (16:35)
--- NOTE | 2017-06-10 21:31 | CP.PCM.PN ---
Subjective - Date & Time of Evaluation Date of Evaluation: 06/10/17 Time of Evaluation: 05:30 - Subjective Subjective: dictated Objective - Vital Signs/Intake and Output Vital Signs (last 24 hours): Temp Pulse Resp BP Pulse Ox 98 F 104 H 29 H 130/73 98 06/10/17 17:30 06/10/17 19:00 06/10/17 19:00 06/10/17 18:49 06/10/17 19:00 Intake and Output: 06/10/17 06/11/17 18:59 06:59 Intake Total 510 50 Output Total 140 0 Balance 370 50 - Medications Medications: Current Medications Albuterol/Ipratropium (Duoneb 3 Mg/0.5 Mg (3 Ml) Ud) 3 ml INH RQ6 [facility] Last Admin: 06/10/17 20:48 Dose: 3 ml Calcium Acetate (Phoslo) 667 mg PO TIDCC [facility] Last Admin: 06/10/17 17:52 Dose: 667 mg Diltiazem HCl (Cardizem) 30 mg PO Q6H [facility] Last Admin: 06/10/17 17:52 Dose: 30 mg Dorzolamide HCl (Trusopt) 10 ml OU TID [facility] Last Admin: 06/10/17 17:51 Dose: 1 drop Epoetin Ken (Procrit) 10,000 unit IV MWF [facility] Last Admin: 06/10/17 16:35 Dose: 10,000 unit Ferric Sodium Gluconate Complex (Ferrlecit) 125 mg IVPB DAILY [facility] Stop: 06/11/17 14:01 Last Admin: 06/10/17 09:43 Dose: 125 mg Heparin Sodium (Porcine) (Heparin) 5,000 units SC Q12 [facility] Last Admin: 06/10/17 10:36 Dose: 5,000 units Heparin Sodium (Porcine) (Heparin) 3,700 units IVP DAILY [facility] Last Admin: 06/10/17 16:34 Dose: 3,700 units Montelukast Sodium (Singulair) 10 mg PO DAILY [facility] Last Admin: 06/10/17 09:36 Dose: 10 mg Morphine Sulfate (Morphine) 1 mg IVP Q4 PRN PRN Reason: Pain, moderate (4-7) Multivitamins (Hexavitamin) 1 tab PO DAILY [facility] Last Admin: 06/10/17 09:35 Dose: 1 tab Nystatin (Nystop Topical Powder) 1 applic TOP TID [facility] Last Admin: 06/10/17 17:51 Dose: 1 pow Pantoprazole Sodium (Protonix Inj) 40 mg IVP DAILY [facility] Last Admin: 06/10/17 09:36 Dose: 40 mg - Labs Labs: 06/10/17 06:08 06/10/17 06:08 PT 14.3 SECONDS (9.7-12.2) H 06/09/17 06:24 INR 1.3 06/09/17 06:24 APTT 27 SECONDS (21-34) 06/09/17 06:24
[2017-06-11] MEDS: Albuterol-Ipratrop 3 mg / 0.5 (3 ml) UD INH SCH ×3 (01:06→19:18)
--- NOTE | 2017-06-11 02:33 | PN ---
DATE: SUBJECTIVE: She was alert. PHYSICAL EXAMINATION VITAL SIGNS: She had T-max of 98 when I saw her and she has been off antibiotic. Heart rate is 105, blood pressure 170/107 and respirations are 20. GENERAL: She was opening her eyes. She still has triple lumen and she remains on dialysis; however, she is making some urine. HEENT: Head is atraumatic. LUNGS: Clear. No crackles or rales present. HEART: S1 and S2 irregularly irregular. ABDOMEN: Soft and nontender. No guarding. No rigidity present. EXTREMITIES: Remains with ecchymosis slightly in the upper arms. LABORATORY DATA: Lab show white count is 12.4, hemoglobin 8.6, hematocrit 26.4 and platelet count is 155. Her creatinine is 2.7 and BUN is 52. MEDICATIONS: Her medications at the present time are DuoNeb, PhosLo, Cardizem, Trusopt, Procrit, Ferrlecit, heparin, montelukast, , hexavitamin, Nystatin to the groin and Protonix. At this time, she is off all the antibiotics and we will observe often. Hellen Ospina MD
[2017-06-11 06:40] LABS: ALB/GLOB RATIO 1.2 (1.0-2.1); BILIRUBIN,TOTAL 2.3 mg/dL (0.2-1.3); CALCIUM 8.9 mg/dl (8.6-10.4); MAGNESIUM 1.9 mg/dL (1.6-2.3); PHOSPHOROUS 3.9 mg/dL (2.5-4.5); POTASSIUM 3.8 mmol/L (3.6-5.2); TOTAL PROTEIN 6.1 g/dL (6.3-8.3)
[2017-06-11 06:49] LABS: BASO # 0.1 K/uL (0.0-0.2); BASO % 1.1 % (0.0-2.0); EOS # 0.1 K/uL (0.0-0.7); HEMATOCRIT 26.8 % (34.0-47.0); LYMPH # 2.3 K/uL (1.0-4.3); MEAN CORPUSCULAR HEMOGLOBIN 30.4 pg (27.0-31.0); MEAN CORPUSCULAR HGB CONC 33.4 g/dL (33.0-37.0); MONO # 1.1 K/uL (0.0-0.8); MONO % 8.8 % (0.0-10.0); RED CELL DISTRIBUTION WIDTH 16.8 % (11.5-14.5)
--- NOTE | 2017-06-11 07:51 | CP.PCM.PN ---
<Chaitanya Sharma - Last Filed: 06/11/17 18:50> Subjective - Date & Time of Evaluation Date of Evaluation: 06/11/17 Time of Evaluation: 09:00 - Subjective Subjective: PGY1 Medicine Note for Dr. Padilla Torres Patient was seen and examined at bedside this morning. Patient was transferred out of ICU today to telemetry floor. Patient was easily arousable. Patient is currently non-verbal, unable to attain ROS. Objective - Vital Signs/Intake and Output Vital Signs (last 24 hours): Temp Pulse Resp BP Pulse Ox 98.4 F 82 25 H 141/64 100 06/11/17 04:00 06/11/17 06:00 06/11/17 06:00 06/11/17 05:49 06/11/17 06:00 Intake and Output: 06/11/17 06/11/17 06:59 18:59 Intake Total 290 Output Total 100 Balance 190 - Medications Medications: Current Medications Albuterol/Ipratropium (Duoneb 3 Mg/0.5 Mg (3 Ml) Ud) 3 ml INH RQ6 [facility] Last Admin: 06/11/17 01:06 Dose: 3 ml Calcium Acetate (Phoslo) 667 mg PO TIDCC [facility] Last Admin: 06/10/17 17:52 Dose: 667 mg Diltiazem HCl (Cardizem) 30 mg PO Q6H [facility] Last Admin: 06/11/17 05:11 Dose: 30 mg Dorzolamide HCl (Trusopt) 10 ml OU TID [facility] Last Admin: 06/10/17 17:51 Dose: 1 drop Epoetin Ken (Procrit) 10,000 unit IV MWF [facility] Last Admin: 06/10/17 16:35 Dose: 10,000 unit Ferric Sodium Gluconate Complex (Ferrlecit) 125 mg IVPB DAILY [facility] Stop: 06/11/17 14:01 Last Admin: 06/10/17 09:43 Dose: 125 mg Heparin Sodium (Porcine) (Heparin) 5,000 units SC Q12 [facility] Last Admin: 06/10/17 22:16 Dose: 5,000 units Heparin Sodium (Porcine) (Heparin) 3,700 units IVP DAILY [facility] Last Admin: 06/10/17 16:34 Dose: 3,700 units Montelukast Sodium (Singulair) 10 mg PO DAILY [facility] Last Admin: 06/10/17 09:36 Dose: 10 mg Morphine Sulfate (Morphine) 1 mg IVP Q4 PRN PRN Reason: Pain, moderate (4-7) Multivitamins (Hexavitamin) 1 tab PO DAILY [facility] Last Admin: 06/10/17 09:35 Dose: 1 tab Nystatin (Nystop Topical Powder) 1 applic TOP TID [facility] Last Admin: 06/10/17 17:51 Dose: 1 pow Pantoprazole Sodium (Protonix Inj) 40 mg IVP DAILY [facility] Last Admin: 06/10/17 09:36 Dose: 40 mg - Labs Labs: 06/11/17 06:19 06/11/17 06:19 PT 14.3 SECONDS (9.7-12.2) H 06/09/17 06:24 INR 1.3 06/09/17 06:24 APTT 27 SECONDS (21-34) 06/09/17 06:24 - Constitutional Appears: No Acute Distress, Chronically Ill - Eye Exam Eye Exam: EOMI - ENT Exam ENT Exam: Mucous Membranes Moist - Neck Exam Additional comments: Central Line in IJ. - Respiratory Exam Respiratory Exam: Decreased Breath Sounds - Cardiovascular Exam Cardiovascular Exam: REGULAR RHYTHM, +S1, +S2 - GI/Abdominal Exam GI & Abdominal Exam: Soft, Normal Bowel Sounds. absent: Tenderness - Exam Additional comments: hunt in place. sediment in tubing. - Extremities Exam Extremities Exam: absent: Pedal Edema Additional comments: scd's and pressure boots in place. - Neurological Exam Neurological Exam: Alert, Awake Additional comments: non-verbal. - Skin Skin Exam: Dry, Warm Additional comments: multiple areas of ecchymosis throughout patient's body of different stages of healing. Assessment and Plan - Assessment and Plan (Free Text) Assessment: CEZAR (acute kidney injury) Nephrology Consult, Dr. Anderson Patient developed acute renal failure Patient is currently on hemodialysis - [facility] * Dr. Tristan consulted for Perma Cath placement Renal US 06/11/17 - limited study due to patient's body habitus. No calculus or hydronephrosis identified b/l. Probable right renal cortical cyst measures approximately 0.7 x 0.4 x 0.8 cm Pneumonia Patient was treated with Zosyn. Completeled treatment and is currently off all antibiotics now. Acute respiratory failure with hypoxia and hypercapnia Patient was intubated and extubated twice. Now patient is monitored on oxygen by nasal cannula. Respiratory status stable. Continue to monitor. COPD exacerbation Pulmonology Consult, Dr. Camejo Continue nebulizing treatment. s/p extubation twice Atrial fibrillation, new onset Rate controlled - Diltiazem 30mg PO Q6H Not on anticoagulation because of anemia and ecchymosis On Ferrlecit for Anemia CHF (congestive heart failure) CXR 06/09 : stable cardiomegaly, small bilateral pleural effusions noted EF 57.8% Cont to monitor on Lasix PRN Elevated WBCs Infectious Disease consulted, Dr. Ospina Monitor - 12.0 today off of all antibiotics Abnormal RBCs Hematology Oncology consulted, Dr. Mills History of hypertension per cardio note, will not treat acute rises in blood pressure. Will continue to monitor at this time and then assess. Considerations for pain control and to minimize need for fluid administration. Breast Rash - Resolved Nystatin topical powder discontinued - completed treatment - 14 days total Sacral Decubitus Ulcer Located on the right upper buttocks Started on Aloe Gamaliel lotion TID Turn pt every 2 hours Prophylactic measure Heparin SC 5000 Q12 restarted yesterday Protonix 40 mg IV daily Case discussed with Dr. Padilla Sharma PGY1 <Yo Torres - Last Filed: 06/11/17 21:19> Objective - Vital Signs/Intake and Output Vital Signs (last 24 hours): Temp Pulse Resp BP Pulse Ox 98 F 94 H 20 118/68 99 06/11/17 15:00 06/11/17 15:00 06/11/17 15:00 06/11/17 15:00 06/11/17 15:00 Intake and Output: 06/11/17 06/12/17 18:59 06:59 Intake Total 220 Output Total 30 Balance 190 - Medications Medications: Current Medications Albuterol/Ipratropium (Duoneb 3 Mg/0.5 Mg (3 Ml) Ud) 3 ml INH RQ6 [facility] Last Admin: 06/11/17 19:18 Dose: 3 ml Calcium Acetate (Phoslo) 667 mg PO TIDCC [facility] Last Admin: 06/11/17 18:00 Dose: 667 mg Diltiazem HCl (Cardizem) 30 mg PO Q6H [facility] Last Admin: 06/11/17 18:45 Dose: 30 mg Dorzolamide HCl (Trusopt) 10 ml OU TID [facility] Last Admin: 06/11/17 18:46 Dose: 1 drop Epoetin Ken (Procrit) 10,000 unit IV MWF [facility] Last Admin: 06/10/17 16:35 Dose: 10,000 unit Heparin Sodium (Porcine) (Heparin) 5,000 units SC Q12 [facility] Last Admin: 06/11/17 11:01 Dose: 5,000 units Heparin Sodium (Porcine) (Heparin) 3,700 units IVP DAILY [facility] Last Admin: 06/10/17 16:34 Dose: 3,700 units Montelukast Sodium (Singulair) 10 mg PO DAILY [facility] Last Admin: 06/11/17 10:59 Dose: 10 mg Morphine Sulfate (Morphine) 1 mg IVP Q4 PRN PRN Reason: Pain, moderate (4-7) Last Admin: 06/11/17 16:54 Dose: 1 mg Multivitamins (Hexavitamin) 1 tab PO DAILY [facility] Last Admin: 06/11/17 10:59 Dose: 1 tab Pantoprazole Sodium (Protonix Inj) 40 mg IVP DAILY [facility] Last Admin: 06/11/17 10:59 Dose: 40 mg - Labs Labs: 06/11/17 06:19 06/11/17 06:19 PT 14.3 SECONDS (9.7-12.2) H 06/09/17 06:24 INR 1.3 06/09/17 06:24 APTT 27 SECONDS (21-34) 06/09/17 06:24 Attending/Attestation - Attestation I have personally seen and examined this patient.: Yes I have fully participated in the care of the patient.: Yes I have reviewed all pertinent clinical information, including history, physical exam and plan: Yes Notes (Text): 06/11/17 21:18 Patient was seen and examined at 8:30 AM 06/11/17 in ICU Bed #1. Exam, assessment and plan were thoroughly gone over with the resident. Yo Torres D.O.
--- NOTE | 2017-06-11 10:42 | CP.PCM.PN ---
Subjective - Date & Time of Evaluation Date of Evaluation: 06/11/17 Time of Evaluation: 10:40 - Subjective Subjective: s/p dialysis 06/10- UF 2000ml remains oliguric nonverbal now no new n, v, f, chills noted will need to change dialysis MWF Objective - Vital Signs/Intake and Output Vital Signs (last 24 hours): Temp Pulse Resp BP Pulse Ox 98.4 F 85 26 H 138/65 100 06/11/17 04:00 06/11/17 09:00 06/11/17 08:15 06/11/17 08:15 06/11/17 08:15 Intake and Output: 06/11/17 06/11/17 06:59 18:59 Intake Total 290 Output Total 100 Balance 190 - Medications Medications: Current Medications Albuterol/Ipratropium (Duoneb 3 Mg/0.5 Mg (3 Ml) Ud) 3 ml INH RQ6 [facility] Last Admin: 06/11/17 08:20 Dose: 3 ml Calcium Acetate (Phoslo) 667 mg PO TIDCC [facility] Last Admin: 06/11/17 08:02 Dose: 667 mg Diltiazem HCl (Cardizem) 30 mg PO Q6H [facility] Last Admin: 06/11/17 05:11 Dose: 30 mg Dorzolamide HCl (Trusopt) 10 ml OU TID [facility] Last Admin: 06/10/17 17:51 Dose: 1 drop Epoetin Ken (Procrit) 10,000 unit IV MWF [facility] Last Admin: 06/10/17 16:35 Dose: 10,000 unit Ferric Sodium Gluconate Complex (Ferrlecit) 125 mg IVPB DAILY [facility] Stop: 06/11/17 14:01 Last Admin: 06/10/17 09:43 Dose: 125 mg Heparin Sodium (Porcine) (Heparin) 5,000 units SC Q12 [facility] Last Admin: 06/10/17 22:16 Dose: 5,000 units Heparin Sodium (Porcine) (Heparin) 3,700 units IVP DAILY [facility] Last Admin: 06/10/17 16:34 Dose: 3,700 units Montelukast Sodium (Singulair) 10 mg PO DAILY [facility] Last Admin: 06/10/17 09:36 Dose: 10 mg Morphine Sulfate (Morphine) 1 mg IVP Q4 PRN PRN Reason: Pain, moderate (4-7) Multivitamins (Hexavitamin) 1 tab PO DAILY [facility] Last Admin: 06/10/17 09:35 Dose: 1 tab Nystatin (Nystop Topical Powder) 1 applic TOP TID [facility] Last Admin: 06/10/17 17:51 Dose: 1 pow Pantoprazole Sodium (Protonix Inj) 40 mg IVP DAILY [facility] Last Admin: 06/10/17 09:36 Dose: 40 mg - Labs Labs: 06/11/17 06:19 06/11/17 06:19 PT 14.3 SECONDS (9.7-12.2) H 06/09/17 06:24 INR 1.3 06/09/17 06:24 APTT 27 SECONDS (21-34) 06/09/17 06:24 - Constitutional Appears: No Acute Distress, Chronically Ill - Head Exam Head Exam: ATRAUMATIC, NORMAL INSPECTION - Eye Exam Eye Exam: EOMI, Normal appearance - Neck Exam Neck Exam: Normal Inspection. absent: Tenderness - Respiratory Exam Respiratory Exam: Clear to Ausculation Bilateral, NORMAL BREATHING PATTERN - Cardiovascular Exam Cardiovascular Exam: REGULAR RHYTHM, +S1 - GI/Abdominal Exam GI & Abdominal Exam: Soft. absent: Tenderness - Extremities Exam Extremities Exam: Normal Inspection. absent: Tenderness - Neurological Exam Neurological Exam: Alert, CN II-XII Intact - Skin Skin Exam: Dry, Warm Assessment and Plan (1) Acute respiratory failure Status: Acute (2) Chronic a-fib Status: Acute (3) Dementia Status: Acute (4) CEZAR (acute kidney injury) Status: Acute (5) Acute respiratory failure with hypoxia and hypercapnia Status: Acute (6) History of hypertension Status: Acute (7) ESRD (end stage renal disease) Status: Acute - Assessment and Plan (Free Text) Plan: Change dialysis MWF Repeat chemistries
[2017-06-11] MEDS: Ferric Sodium Gluconat Complex 62.5 mg/5 ml Vial IVPB SCH (10:58)
[2017-06-11] MEDS: Multiple Vitamins Tab PO SCH (10:59)
[2017-06-11] MEDS: Dorzolamide 2% Opht Sol 10ml OU SCH ×2 (12:54→18:46)
--- NOTE | 2017-06-11 13:50 | US ---
PROCEDURE: Ultrasound of the Kidneys HISTORY: evaluate CKD COMPARISON: CT chest, abdomen, and pelvis performed 06/03/17 TECHNIQUE: Sonogram of the kidneys. FINDINGS: Examination limited by habitus. RIGHT KIDNEY: Measures: 13.2 x 5.0 x 4.9 cm. No obstructing calculus or hydronephrosis identified. Probable right renal cortical cyst measures approximately 0.7 x 0.4 x 0.8 cm. LEFT KIDNEY: Measures: 11.7 x 6.5 x 6.5 cm. No obstructing calculus or hydronephrosis identified. OTHER FINDINGS: Urinary bladder cannot be assessed, decompressed with Saenz catheter. IMPRESSION: Limited study. 8 mm probable right renal cortical cyst.
--- NOTE | 2017-06-11 22:00 | CP.PCM.PN ---
Subjective - Date & Time of Evaluation Date of Evaluation: 06/09/17 Time of Evaluation: 09:40 - Subjective Subjective: Patient seen and evaluated Not in distress Physical examination - Head Exam Head Exam: ATRAUMATIC, NORMAL INSPECTION - Eye Exam Eye Exam: PERRL - ENT Exam ENT Exam: Mucous Membranes Moist - Neck Exam Neck Exam: Normal Inspection - Respiratory Exam Respiratory Exam: Decreased Breath Sounds - Cardiovascular Exam Cardiovascular Exam: Irregular Rhythm, +S1, +S2 - GI/Abdominal Exam GI & Abdominal Exam: Normal Bowel Sounds - Skin Skin Exam: Warm Objective - Vital Signs/Intake and Output Vital Signs (last 24 hours): Temp Pulse Resp BP Pulse Ox 98 F 94 H 20 118/68 99 06/11/17 15:00 06/11/17 15:00 06/11/17 15:00 06/11/17 15:00 06/11/17 15:00 Intake and Output: 06/11/17 06/12/17 18:59 06:59 Intake Total 220 Output Total 30 Balance 190 - Medications Medications: Current Medications Albuterol/Ipratropium (Duoneb 3 Mg/0.5 Mg (3 Ml) Ud) 3 ml INH RQ6 [facility] Last Admin: 06/11/17 19:18 Dose: 3 ml Calcium Acetate (Phoslo) 667 mg PO TIDCC [facility] Last Admin: 06/11/17 18:00 Dose: 667 mg Diltiazem HCl (Cardizem) 30 mg PO Q6H [facility] Last Admin: 06/11/17 18:45 Dose: 30 mg Dorzolamide HCl (Trusopt) 10 ml OU TID [facility] Last Admin: 06/11/17 18:46 Dose: 1 drop Epoetin Ken (Procrit) 10,000 unit IV MWF [facility] Last Admin: 06/10/17 16:35 Dose: 10,000 unit Heparin Sodium (Porcine) (Heparin) 5,000 units SC Q12 [facility] Last Admin: 06/11/17 11:01 Dose: 5,000 units Heparin Sodium (Porcine) (Heparin) 3,700 units IVP DAILY [facility] Last Admin: 06/10/17 16:34 Dose: 3,700 units Montelukast Sodium (Singulair) 10 mg PO DAILY [facility] Last Admin: 06/11/17 10:59 Dose: 10 mg Morphine Sulfate (Morphine) 1 mg IVP Q4 PRN PRN Reason: Pain, moderate (4-7) Last Admin: 06/11/17 16:54 Dose: 1 mg Multivitamins (Hexavitamin) 1 tab PO DAILY [facility] Last Admin: 06/11/17 10:59 Dose: 1 tab Pantoprazole Sodium (Protonix Inj) 40 mg IVP DAILY [facility] Last Admin: 06/11/17 10:59 Dose: 40 mg - Labs Labs: 06/11/17 06:19 06/11/17 06:19 PT 14.3 SECONDS (9.7-12.2) H 06/09/17 06:24 INR 1.3 06/09/17 06:24 APTT 27 SECONDS (21-34) 06/09/17 06:24 Assessment and Plan - Assessment and Plan (Free Text) Assessment: (1) Atrial fibrillation, new onset Status: Acute (2) CHF (congestive heart failure) Status: Chronic (3) Elevated troponin Status: Acute (4) Prophylactic measure Status: Acute - Assessment and Plan (Free Text) Assessment: Atrial fibrillation, new onset Assessment & Plan: Rate controlled on Diltiazem CHADs Score of 5- Patient off Lovenox due to anemia and new onset ecchymosis. Will continue to monitor. On Ferrlecit for Anemia Status: Acute CHF (congestive heart failure) Assessment & Plan: CXR 06/09 : stable cardiomegaly, small bilateral pleural effusions noted EF 57.8% Cont to monitor on Lasix PRN Status: Acute Blood pressure elevated Assessment & Plan: Blood pressure has been elevated for most of the morning. Will not treat acute rises in blood pressure. Will continue to monitor at this time and then assess. Considerations for pain control and to minimize need for fluid administration . Elevated troponin Assessment & Plan: On admission elevated; likely secondary to then CHF exacerbation Cont to monitor Status: Acute Prophylactic measure Assessment & Plan: Heparin SC 5000 Q12 restarted today Protonix 40 mg IV daily Status: Acute
--- NOTE | 2017-06-11 22:02 | CP.PCM.PN ---
Subjective - Date & Time of Evaluation Date of Evaluation: 06/11/17 Time of Evaluation: 09:35 - Subjective Subjective: patient seen and evaluated Extubated Comfortable Physical examination - Head Exam Head Exam: ATRAUMATIC, NORMAL INSPECTION - Eye Exam Eye Exam: PERRL - ENT Exam ENT Exam: Mucous Membranes Moist - Neck Exam Neck Exam: Normal Inspection - Respiratory Exam Respiratory Exam: Decreased Breath Sounds - Cardiovascular Exam Cardiovascular Exam: Irregular Rhythm, +S1, +S2 - GI/Abdominal Exam GI & Abdominal Exam: Normal Bowel Sounds - Skin Skin Exam: Warm Objective - Vital Signs/Intake and Output Vital Signs (last 24 hours): Temp Pulse Resp BP Pulse Ox 98 F 94 H 20 118/68 99 06/11/17 15:00 06/11/17 15:00 06/11/17 15:00 06/11/17 15:00 06/11/17 15:00 Intake and Output: 06/11/17 06/12/17 18:59 06:59 Intake Total 220 Output Total 30 Balance 190 - Medications Medications: Current Medications Albuterol/Ipratropium (Duoneb 3 Mg/0.5 Mg (3 Ml) Ud) 3 ml INH RQ6 [facility] Last Admin: 06/11/17 19:18 Dose: 3 ml Calcium Acetate (Phoslo) 667 mg PO TIDCC [facility] Last Admin: 06/11/17 18:00 Dose: 667 mg Diltiazem HCl (Cardizem) 30 mg PO Q6H [facility] Last Admin: 06/11/17 18:45 Dose: 30 mg Dorzolamide HCl (Trusopt) 10 ml OU TID [facility] Last Admin: 06/11/17 18:46 Dose: 1 drop Epoetin Ken (Procrit) 10,000 unit IV MWF [facility] Last Admin: 06/10/17 16:35 Dose: 10,000 unit Heparin Sodium (Porcine) (Heparin) 5,000 units SC Q12 [facility] Last Admin: 06/11/17 11:01 Dose: 5,000 units Heparin Sodium (Porcine) (Heparin) 3,700 units IVP DAILY [facility] Last Admin: 06/10/17 16:34 Dose: 3,700 units Montelukast Sodium (Singulair) 10 mg PO DAILY [facility] Last Admin: 06/11/17 10:59 Dose: 10 mg Morphine Sulfate (Morphine) 1 mg IVP Q4 PRN PRN Reason: Pain, moderate (4-7) Last Admin: 06/11/17 16:54 Dose: 1 mg Multivitamins (Hexavitamin) 1 tab PO DAILY [facility] Last Admin: 06/11/17 10:59 Dose: 1 tab Pantoprazole Sodium (Protonix Inj) 40 mg IVP DAILY [facility] Last Admin: 06/11/17 10:59 Dose: 40 mg - Labs Labs: 06/11/17 06:19 06/11/17 06:19 PT 14.3 SECONDS (9.7-12.2) H 06/09/17 06:24 INR 1.3 06/09/17 06:24 APTT 27 SECONDS (21-34) 06/09/17 06:24 Assessment and Plan - Assessment and Plan (Free Text) Assessment: (1) Atrial fibrillation, new onset Status: Acute (2) CHF (congestive heart failure) Status: Chronic (3) Elevated troponin Status: Acute (4) Prophylactic measure Status: Acute - Assessment and Plan (Free Text) Assessment: Atrial fibrillation, new onset Assessment & Plan: Rate controlled on Diltiazem CHADs Score of 5- Patient off Lovenox due to anemia and new onset ecchymosis. Will continue to monitor. On Ferrlecit for Anemia Status: Acute CHF (congestive heart failure) Assessment & Plan: CXR 06/09 : stable cardiomegaly, small bilateral pleural effusions noted EF 57.8% Cont to monitor on Lasix PRN Status: Acute Blood pressure elevated Assessment & Plan: Blood pressure has been elevated for most of the morning. Will not treat acute rises in blood pressure. Will continue to monitor at this time and then assess. Considerations for pain control and to minimize need for fluid administration . Elevated troponin Assessment & Plan: On admission elevated; likely secondary to then CHF exacerbation Cont to monitor Status: Acute Prophylactic measure Assessment & Plan: Heparin SC 5000 Q12 restarted today Protonix 40 mg IV daily Status: Acute
[2017-06-12] MEDS: Albuterol-Ipratrop 3 mg / 0.5 (3 ml) UD INH SCH ×4 (01:06→19:10)
[2017-06-12 07:26] LABS: BASO # 0.1 K/uL (0.0-0.2); MEAN PLATELET VOLUME 7.8 fL (7.2-11.7)
[2017-06-12 07:35] LABS: BASO % 1.1 % (0.0-2.0); EOS # 0.2 K/uL (0.0-0.7); EOS % 1.8 % (0.0-4.0); HEMATOCRIT 28.2 % (34.0-47.0); LYMPH # 1.5 K/uL (1.0-4.3); LYMPH % 16.4 % (20.0-40.0); MEAN CORPUSCULAR HGB CONC 33.2 g/dL (33.0-37.0); MONO # 0.7 K/uL (0.0-0.8); MONO % 7.9 % (0.0-10.0); RED CELL DISTRIBUTION WIDTH 17.6 % (11.5-14.5); WHITE BLOOD COUNT 9.3 K/uL (4.8-10.8)
[2017-06-12 07:53] LABS: MEAN CELL VOLUME 93.4 fL (81.0-99.0)
[2017-06-12 07:55] LABS: POTASSIUM 3.9 mmol/L (3.6-5.2)
[2017-06-12 07:57] LABS: ALB/GLOB RATIO 1.1 (1.0-2.1); BILIRUBIN,TOTAL 1.9 mg/dL (0.2-1.3); TOTAL PROTEIN 6.6 g/dL (6.3-8.3)
[2017-06-12 07:58] LABS: CALCIUM 9.5 mg/dl (8.6-10.4); MAGNESIUM 2.1 mg/dL (1.6-2.3); PHOSPHOROUS 7.2 mg/dL (2.5-4.5)
--- NOTE | 2017-06-12 09:59 | CP.PCM.PN ---
<[email or web address] - Last Filed: 06/12/17 13:59> Subjective - Date & Time of Evaluation Date of Evaluation: 06/12/17 Time of Evaluation: 06:58 - Subjective Subjective: Cardiology Progress Note- Dr. Hart's service Pt seen and examined in no acute distress. Patient mouths that she feels tired. Patient is able to mouth and shake head to a review of symptoms. She specifically denies chest pain, shortness of breath or palpitations at this time. Objective - Vital Signs/Intake and Output Vital Signs (last 24 hours): Temp Pulse Resp BP Pulse Ox 98.9 F 88 20 106/65 98 06/12/17 07:00 06/12/17 07:00 06/12/17 07:00 06/12/17 07:00 06/12/17 07:00 Intake and Output: 06/12/17 06/12/17 06:59 18:59 Intake Total 150 Output Total 200 Balance -50 - Medications Medications: Current Medications Albuterol/Ipratropium (Duoneb 3 Mg/0.5 Mg (3 Ml) Ud) 3 ml INH RQ6 [facility] Last Admin: 06/12/17 08:11 Dose: 3 ml Calcium Acetate (Phoslo) 667 mg PO TIDCC [facility] Last Admin: 06/12/17 09:06 Dose: 667 mg Diltiazem HCl (Cardizem) 30 mg PO Q6H [facility] Last Admin: 06/12/17 06:48 Dose: 30 mg Dorzolamide HCl (Trusopt) 10 ml OU TID [facility] Last Admin: 06/11/17 18:46 Dose: 1 drop Epoetin Ken (Procrit) 10,000 unit IV MWF [facility] Last Admin: 06/10/17 16:35 Dose: 10,000 unit Heparin Sodium (Porcine) (Heparin) 5,000 units SC Q12 [facility] Last Admin: 06/11/17 22:40 Dose: 5,000 units Heparin Sodium (Porcine) (Heparin) 3,700 units IVP DAILY [facility] Last Admin: 06/12/17 08:23 Dose: Not Given Montelukast Sodium (Singulair) 10 mg PO DAILY [facility] Last Admin: 06/11/17 10:59 Dose: 10 mg Morphine Sulfate (Morphine) 1 mg IVP Q4 PRN PRN Reason: Pain, moderate (4-7) Last Admin: 06/11/17 16:54 Dose: 1 mg Multivitamins (Hexavitamin) 1 tab PO DAILY [facility] Last Admin: 06/11/17 10:59 Dose: 1 tab Pantoprazole Sodium (Protonix Inj) 40 mg IVP DAILY [facility] Last Admin: 06/11/17 10:59 Dose: 40 mg - Labs Labs: 06/12/17 07:15 06/12/17 07:15 PT 14.3 SECONDS (9.7-12.2) H 06/09/17 06:24 INR 1.3 06/09/17 06:24 APTT 27 SECONDS (21-34) 06/09/17 06:24 - Constitutional Appears: Non-toxic, No Acute Distress - Head Exam Head Exam: ATRAUMATIC, NORMAL INSPECTION, NORMOCEPHALIC - Eye Exam Eye Exam: EOMI Pupil Exam: NORMAL ACCOMODATION - ENT Exam ENT Exam: Mucous Membranes Moist - Neck Exam Neck Exam: Full ROM - Respiratory Exam Respiratory Exam: Decreased Breath Sounds, NORMAL BREATHING PATTERN Additional comments: nc in place - Cardiovascular Exam Cardiovascular Exam: +S1, +S2, Murmur. absent: JVD - GI/Abdominal Exam GI & Abdominal Exam: Soft, Normal Bowel Sounds - Extremities Exam Extremities Exam: Pedal Edema. absent: Calf Tenderness - Neurological Exam Neurological Exam: Alert, Awake - Psychiatric Exam Psychiatric exam: Flat Affect - Skin Skin Exam: Dry, Warm Additional comments: ecchymosis unchanged Assessment and Plan (1) Atrial fibrillation, new onset Status: Acute (2) CHF (congestive heart failure) Status: Chronic (3) Elevated troponin Status: Acute (4) Prophylactic measure Status: Acute - Assessment and Plan (Free Text) Assessment: Atrial fibrillation, new onset Assessment & Plan: Rate controlled on Diltiazem 30 mg Q6H CHADs Score of 5- Patient off Lovenox due to anemia and ecchymosis. Will need to determine anticoagulation measures. At this time, on DVT prophylaxis solely. On Ferrlecit for Anemia Status: Acute CHF (congestive heart failure) Assessment & Plan: CXR 06/09 : stable cardiomegaly, small bilateral pleural effusions noted EF 57.8% Cont to monitor on Lasix PRN Status: Acute Elevated troponin Assessment & Plan: On admission elevated; likely secondary to then CHF exacerbation Cont to monitor Status: Acute Prophylactic measure Assessment & Plan: Heparin SC 5000 Q12 Protonix 40 mg IV daily Status: Acute <Ish Hart - Last Filed: 06/12/17 23:04> Objective - Vital Signs/Intake and Output Vital Signs (last 24 hours): Temp Pulse Resp BP Pulse Ox 98.2 F 100 H 20 108/69 98 06/12/17 15:13 06/12/17 15:13 06/12/17 15:13 06/12/17 15:13 06/12/17 15:13 Intake and Output: 06/12/17 06/13/17 18:59 06:59 Intake Total 150 Output Total 50 Balance 100 - Medications Medications: Current Medications Albuterol/Ipratropium (Duoneb 3 Mg/0.5 Mg (3 Ml) Ud) 3 ml INH RQ6 [facility] Last Admin: 06/12/17 19:10 Dose: 3 ml Calcium Acetate (Phoslo) 667 mg PO TIDCC [facility] Last Admin: 06/12/17 18:55 Dose: 667 mg Diltiazem HCl (Cardizem) 30 mg PO Q6H [facility] Last Admin: 06/12/17 18:55 Dose: 30 mg Dorzolamide HCl (Trusopt) 10 ml OU TID [facility] Last Admin: 06/12/17 19:00 Dose: 1 drop Epoetin Ken (Procrit) 10,000 unit IV MWF [facility] Last Admin: 06/12/17 12:17 Dose: 10,000 unit Ferric Sodium Gluconate Complex (Ferrlecit) 125 mg IVPB DAILY [facility] Stop: 06/20/17 14:31 Heparin Sodium (Porcine) (Heparin) 5,000 units SC Q12 [facility] Last Admin: 06/12/17 21:42 Dose: 5,000 units Heparin Sodium (Porcine) (Heparin) 3,700 units IVP DAILY [facility] Last Admin: 06/12/17 12:13 Dose: 3,700 units Montelukast Sodium (Singulair) 10 mg PO DAILY [facility] Last Admin: 06/12/17 13:17 Dose: 10 mg Morphine Sulfate (Morphine) 1 mg IVP Q4 PRN PRN Reason: Pain, moderate (4-7) Last Admin: 06/12/17 17:20 Dose: 1 mg Multivitamins (Hexavitamin) 1 tab PO DAILY [facility] Last Admin: 06/12/17 13:16 Dose: 1 tab Pantoprazole Sodium (Protonix Inj) 40 mg IVP DAILY [facility] Last Admin: 06/12/17 13:18 Dose: 40 mg - Labs Labs: 06/12/17 07:15 06/12/17 07:15 PT 14.3 SECONDS (9.7-12.2) H 06/09/17 06:24 INR 1.3 06/09/17 06:24 APTT 27 SECONDS (21-34) 06/09/17 06:24 Assessment and Plan - Assessment and Plan (Free Text) Assessment: Patient seen and evaluated with the anesthesiology medical doctor Plan of care as documented
[2017-06-12] MEDS: EPOETIN ALFA 10,000 UNIT/ML ML IV SCH (12:15)
[2017-06-12] MEDS: Epoetin Alfa 10,000 unit/ml Dialysis IV SCH (12:17)
[2017-06-12] MEDS: Multiple Vitamins Tab PO SCH (13:16)
[2017-06-12] MEDS: Dorzolamide 2% Opht Sol 10ml OU SCH ×3 (13:18→19:00)
--- NOTE | 2017-06-12 14:24 | CP.PCM.PN ---
Subjective - Date & Time of Evaluation Date of Evaluation: 06/12/17 Time of Evaluation: 14:22 - Subjective Subjective: More alert due for dialysis today iron stores low- will need IV Fe AD=[id number]/24 hrs will need AV access no n, v, d, HAs, diarrhea Objective - Vital Signs/Intake and Output Vital Signs (last 24 hours): Temp Pulse Resp BP Pulse Ox 97.6 F 106 H 18 106/65 100 06/12/17 12:35 06/12/17 12:35 06/12/17 12:35 06/12/17 12:35 06/12/17 12:35 Intake and Output: 06/12/17 06/12/17 06:59 18:59 Intake Total 150 Output Total 200 Balance -50 - Medications Medications: Current Medications Albuterol/Ipratropium (Duoneb 3 Mg/0.5 Mg (3 Ml) Ud) 3 ml INH RQ6 [facility] Last Admin: 06/12/17 14:11 Dose: 3 ml Calcium Acetate (Phoslo) 667 mg PO TIDCC [facility] Last Admin: 06/12/17 13:17 Dose: 667 mg Diltiazem HCl (Cardizem) 30 mg PO Q6H [facility] Last Admin: 06/12/17 13:17 Dose: 30 mg Dorzolamide HCl (Trusopt) 10 ml OU TID [facility] Last Admin: 06/12/17 13:19 Dose: Not Given Epoetin Ken (Procrit) 10,000 unit IV MWF [facility] Last Admin: 06/12/17 12:17 Dose: 10,000 unit Heparin Sodium (Porcine) (Heparin) 5,000 units SC Q12 [facility] Last Admin: 06/12/17 13:17 Dose: 5,000 units Heparin Sodium (Porcine) (Heparin) 3,700 units IVP DAILY [facility] Last Admin: 06/12/17 12:13 Dose: 3,700 units Montelukast Sodium (Singulair) 10 mg PO DAILY [facility] Last Admin: 06/12/17 13:17 Dose: 10 mg Morphine Sulfate (Morphine) 1 mg IVP Q4 PRN PRN Reason: Pain, moderate (4-7) Last Admin: 06/11/17 16:54 Dose: 1 mg Multivitamins (Hexavitamin) 1 tab PO DAILY [facility] Last Admin: 06/12/17 13:16 Dose: 1 tab Pantoprazole Sodium (Protonix Inj) 40 mg IVP DAILY [facility] Last Admin: 06/12/17 13:18 Dose: 40 mg - Labs Labs: 06/12/17 07:15 06/12/17 07:15 PT 14.3 SECONDS (9.7-12.2) H 06/09/17 06:24 INR 1.3 06/09/17 06:24 APTT 27 SECONDS (21-34) 06/09/17 06:24 - Constitutional Appears: No Acute Distress, Chronically Ill - Head Exam Head Exam: ATRAUMATIC, NORMAL INSPECTION - Eye Exam Eye Exam: EOMI, Normal appearance - Neck Exam Neck Exam: Normal Inspection. absent: Tenderness - Respiratory Exam Respiratory Exam: Clear to Ausculation Bilateral, NORMAL BREATHING PATTERN - Cardiovascular Exam Cardiovascular Exam: Irregular Rhythm, +S1 - GI/Abdominal Exam GI & Abdominal Exam: Soft. absent: Tenderness - Extremities Exam Extremities Exam: Normal Inspection. absent: Tenderness - Neurological Exam Neurological Exam: Alert, CN II-XII Intact - Skin Skin Exam: Dry, Warm Assessment and Plan (1) Acute respiratory failure Status: Acute (2) Chronic a-fib Status: Acute (3) Dementia Status: Acute (4) CEZAR (acute kidney injury) Status: Acute (5) Acute respiratory failure with hypoxia and hypercapnia Status: Acute (6) History of hypertension Status: Acute (7) ESRD (end stage renal disease) Status: Acute - Assessment and Plan (Free Text) Plan: AV access dialysis MWF IV Fe
--- NOTE | 2017-06-12 17:34 | CP.PCM.PCO ---
Physician Communication Note - Physician Communication Note Physician Communication Note: AVF planned for thursday
--- NOTE | 2017-06-12 22:27 | CP.PCM.PN ---
<Chaitanya Sharma - Last Filed: 06/12/17 23:43> Subjective - Date & Time of Evaluation Date of Evaluation: 06/12/17 Time of Evaluation: 10:00 - Subjective Subjective: PGY1 Medicine Note for Dr. Davalos Patient seen and examined at bedside this morning. Patient much more alert today. She is still unable to talk due to extubation. Patient is able to mouth that her mouth is very dry. She was able to shake her head yes and no during ROS. Denies f/c, n/v, d/c, sob or cp. Objective - Vital Signs/Intake and Output Vital Signs (last 24 hours): Temp Pulse Resp BP Pulse Ox 98.2 F 100 H 20 108/69 98 06/12/17 15:13 06/12/17 15:13 06/12/17 15:13 06/12/17 15:13 06/12/17 15:13 - Medications Medications: Current Medications Albuterol/Ipratropium (Duoneb 3 Mg/0.5 Mg (3 Ml) Ud) 3 ml INH RQ6 [facility] Last Admin: 06/12/17 19:10 Dose: 3 ml Calcium Acetate (Phoslo) 667 mg PO TIDCC [facility] Last Admin: 06/12/17 18:55 Dose: 667 mg Diltiazem HCl (Cardizem) 30 mg PO Q6H [facility] Last Admin: 06/12/17 18:55 Dose: 30 mg Dorzolamide HCl (Trusopt) 10 ml OU TID [facility] Last Admin: 06/12/17 19:00 Dose: 1 drop Epoetin Ken (Procrit) 10,000 unit IV MWF [facility] Last Admin: 06/12/17 12:17 Dose: 10,000 unit Ferric Sodium Gluconate Complex (Ferrlecit) 125 mg IVPB DAILY [facility] Stop: 06/20/17 14:31 Heparin Sodium (Porcine) (Heparin) 5,000 units SC Q12 [facility] Last Admin: 06/12/17 21:42 Dose: 5,000 units Heparin Sodium (Porcine) (Heparin) 3,700 units IVP DAILY [facility] Last Admin: 06/12/17 12:13 Dose: 3,700 units Montelukast Sodium (Singulair) 10 mg PO DAILY [facility] Last Admin: 06/12/17 13:17 Dose: 10 mg Morphine Sulfate (Morphine) 1 mg IVP Q4 PRN PRN Reason: Pain, moderate (4-7) Last Admin: 06/12/17 17:20 Dose: 1 mg Multivitamins (Hexavitamin) 1 tab PO DAILY [facility] Last Admin: 06/12/17 13:16 Dose: 1 tab Pantoprazole Sodium (Protonix Inj) 40 mg IVP DAILY [facility] Last Admin: 06/12/17 13:18 Dose: 40 mg - Labs Labs: 06/12/17 07:15 06/12/17 07:15 PT 14.3 SECONDS (9.7-12.2) H 06/09/17 06:24 INR 1.3 06/09/17 06:24 APTT 27 SECONDS (21-34) 06/09/17 06:24 - Constitutional Appears: No Acute Distress, Chronically Ill - Eye Exam Eye Exam: EOMI, Normal appearance - ENT Exam ENT Exam: Mucous Membranes Moist - Neck Exam Additional comments: Triple Lumen cath in right IJ. - Respiratory Exam Respiratory Exam: Decreased Breath Sounds, NORMAL BREATHING PATTERN. absent: Accessory Muscle Use, Respiratory Distress - Cardiovascular Exam Cardiovascular Exam: Irregular Rhythm, +S1, +S2 - GI/Abdominal Exam GI & Abdominal Exam: Soft, Normal Bowel Sounds. absent: Tenderness - Exam Additional comments: hunt in place. sediment in tubing. - Extremities Exam Extremities Exam: absent: Pedal Edema Additional comments: scd's and pressure boots in place. - Neurological Exam Neurological Exam: Alert, Awake - Skin Skin Exam: Dry, Warm Additional comments: multiple areas of ecchymosis throughout patient's body of different stages of healing. unchanged. Assessment and Plan - Assessment and Plan (Free Text) Assessment: CEZAR (acute kidney injury) Nephrology Consult, Dr. Anderson Patient developed acute renal failure Patient is currently on hemodialysis - [facility] * Dr. Tristan consulted for Perma Cath placement Renal US 06/11/17 - limited study due to patient's body habitus. No calculus or hydronephrosis identified b/l. Probable right renal cortical cyst measures approximately 0.7 x 0.4 x 0.8 cm Patient is scheduled for AVF on Thursday Pneumonia Patient was treated with Zosyn. Completeled treatment and is currently off all antibiotics now. Acute respiratory failure with hypoxia and hypercapnia Patient was intubated and extubated twice. Now patient is monitored on oxygen by nasal cannula. Respiratory status stable. Continue to monitor. COPD exacerbation Pulmonology Consult, Dr. Camejo Continue nebulizing treatment. s/p extubation twice Atrial fibrillation, new onset Rate controlled - Diltiazem 30mg PO Q6H Not on anticoagulation because of anemia and ecchymosis On Ferrlecit for Anemia CHF (congestive heart failure) CXR 06/09 : stable cardiomegaly, small bilateral pleural effusions noted EF 57.8% Cont to monitor on Lasix PRN Elevated WBCs Infectious Disease consulted, Dr. Ospina Monitor - 12.0 today off of all antibiotics Abnormal RBCs Hematology Oncology consulted, Dr. Mills History of hypertension per cardio note, will not treat acute rises in blood pressure. Will continue to monitor at this time and then assess. Considerations for pain control and to minimize need for fluid administration. Breast Rash - Resolved Nystatin topical powder discontinued - completed treatment - 14 days total Sacral Decubitus Ulcer Located on the right upper buttocks Started on Aloe [place] lotion TID Turn pt every 2 hours Prophylactic measure Heparin SC 5000 Q12 restarted yesterday Protonix 40 mg IV daily Case discussed with Dr. Susannah Tavares Zachary PGY1 <Pawan Davalos - Last Filed: 06/14/17 13:21> Objective - Vital Signs/Intake and Output Vital Signs (last 24 hours): Temp Pulse Resp BP Pulse Ox 98 F 99 H 20 100/62 98 06/14/17 08:00 06/14/17 08:00 06/14/17 08:00 06/14/17 08:00 06/14/17 08:00 Intake and Output: 06/14/17 06/14/17 06:59 18:59 Intake Total 50 Output Total 50 Balance 0 - Medications Medications: Current Medications Albuterol/Ipratropium (Duoneb 3 Mg/0.5 Mg (3 Ml) Ud) 3 ml INH RQ6 [facility] Last Admin: 06/14/17 08:32 Dose: 3 ml Calcium Acetate (Phoslo) 667 mg PO TIDCC [facility] Last Admin: 06/14/17 08:47 Dose: 667 mg Diltiazem HCl (Cardizem) 30 mg PO Q6H [facility] Last Admin: 06/14/17 05:36 Dose: 30 mg Dorzolamide HCl (Trusopt) 10 ml OU TID [facility] Last Admin: 06/13/17 18:23 Dose: 1 drop Epoetin Ken (Procrit) 10,000 unit IV MWF [facility] Last Admin: 06/12/17 12:17 Dose: 10,000 unit Ferric Sodium Gluconate Complex (Ferrlecit) 125 mg IVPB DAILY [facility] Stop: 06/20/17 14:31 Last Admin: 06/14/17 09:36 Dose: 125 mg Montelukast Sodium (Singulair) 10 mg PO DAILY [facility] Last Admin: 06/14/17 09:37 Dose: 10 mg Morphine Sulfate (Morphine) 1 mg IVP Q4 PRN PRN Reason: Pain, moderate (4-7) Last Admin: 06/13/17 21:55 Dose: 1 mg Multivitamins (Hexavitamin) 1 tab PO DAILY [facility] Last Admin: 06/14/17 09:37 Dose: 1 tab Pantoprazole Sodium (Protonix Inj) 40 mg IVP DAILY [facility] Last Admin: 06/14/17 09:37 Dose: 40 mg - Labs Labs: 06/14/17 08:21 06/14/17 08:27 PT 14.3 SECONDS (9.7-12.2) H 06/09/17 06:24 INR 1.3 06/09/17 06:24 APTT 27 SECONDS (21-34) 06/09/17 06:24 Attending/Attestation - Attestation I have personally seen and examined this patient.: Yes I have fully participated in the care of the patient.: Yes I have reviewed all pertinent clinical information, including history, physical exam and plan: Yes Notes (Text): CEZAR (acute kidney injury) now ESRD on HD planned av fistula Pneumonia completed abx Acute respiratory failure with hypoxia and hypercapnia Patient was intubated and extubated twice. Now patient is monitored on oxygen by nasal cannula. Respiratory status stable. Continue to monitor. COPD exacerbation ANTHONY likely as well Obesity hypoventilation also contributing to respiratory problems Morbid obesity BMI 37.9
[2017-06-13] MEDS: Albuterol-Ipratrop 3 mg / 0.5 (3 ml) UD INH SCH ×4 (01:03→20:15)
[2017-06-13 07:46] LABS: BASO # 0.2 K/uL (0.0-0.2); BASO % 1.3 % (0.0-2.0); EOS # 0.1 K/uL (0.0-0.7); EOS % 0.9 % (0.0-4.0); HEMATOCRIT 30.2 % (34.0-47.0); LYMPH # 2.1 K/uL (1.0-4.3); LYMPH % 16.8 % (20.0-40.0); MEAN CELL VOLUME 94.6 fL (81.0-99.0); MEAN CORPUSCULAR HEMOGLOBIN 31.1 pg (27.0-31.0); MEAN CORPUSCULAR HGB CONC 32.9 g/dL (33.0-37.0); MONO % 7.8 % (0.0-10.0); NRBC % 3.9 % (0.0-2.0); RED CELL DISTRIBUTION WIDTH 24.1 % (11.5-14.5); WHITE BLOOD COUNT 12.3 K/uL (4.8-10.8)
[2017-06-13 08:16] LABS: POTASSIUM 4.5 mmol/L (3.6-5.2)
[2017-06-13 08:18] LABS: ALB/GLOB RATIO 1.1 (1.0-2.1); BILIRUBIN,TOTAL 2.2 mg/dL (0.2-1.3); TOTAL PROTEIN 7.1 g/dL (6.3-8.3)
[2017-06-13 08:19] LABS: CALCIUM 9.3 mg/dl (8.6-10.4); PHOSPHOROUS 5.4 mg/dL (2.5-4.5)
--- NOTE | 2017-06-13 09:12 | CP.PCM.PN ---
Subjective - Date & Time of Evaluation Date of Evaluation: 06/13/17 Time of Evaluation: 09:10 - Subjective Subjective: aferbrile cbc chems noted awake comfortable in bed not answering questions or following commands ROS unobtainable,non verbal Objective - Vital Signs/Intake and Output Vital Signs (last 24 hours): Temp Pulse Resp BP Pulse Ox 98 F 98 H 20 108/67 96 06/13/17 07:00 06/13/17 07:00 06/13/17 07:00 06/13/17 07:00 06/13/17 07:00 Intake and Output: 06/13/17 06/13/17 06:59 18:59 Intake Total 150 Output Total 75 Balance 75 - Medications Medications: Current Medications Albuterol/Ipratropium (Duoneb 3 Mg/0.5 Mg (3 Ml) Ud) 3 ml INH RQ6 [facility] Last Admin: 06/13/17 07:28 Dose: 3 ml Calcium Acetate (Phoslo) 667 mg PO TIDCC [facility] Last Admin: 06/12/17 18:55 Dose: 667 mg Diltiazem HCl (Cardizem) 30 mg PO Q6H [facility] Last Admin: 06/13/17 05:27 Dose: 30 mg Dorzolamide HCl (Trusopt) 10 ml OU TID [facility] Last Admin: 06/12/17 19:00 Dose: 1 drop Epoetin Ken (Procrit) 10,000 unit IV MWF [facility] Last Admin: 06/12/17 12:17 Dose: 10,000 unit Ferric Sodium Gluconate Complex (Ferrlecit) 125 mg IVPB DAILY [facility] Stop: 06/20/17 14:31 Heparin Sodium (Porcine) (Heparin) 5,000 units SC Q12 [facility] Last Admin: 06/12/17 21:42 Dose: 5,000 units Heparin Sodium (Porcine) (Heparin) 3,700 units IVP DAILY [facility] Last Admin: 06/12/17 12:13 Dose: 3,700 units Montelukast Sodium (Singulair) 10 mg PO DAILY [facility] Last Admin: 06/12/17 13:17 Dose: 10 mg Morphine Sulfate (Morphine) 1 mg IVP Q4 PRN PRN Reason: Pain, moderate (4-7) Last Admin: 06/12/17 17:20 Dose: 1 mg Multivitamins (Hexavitamin) 1 tab PO DAILY [facility] Last Admin: 06/12/17 13:16 Dose: 1 tab Pantoprazole Sodium (Protonix Inj) 40 mg IVP DAILY [facility] Last Admin: 06/12/17 13:18 Dose: 40 mg - Labs Labs: 06/13/17 07:33 06/13/17 07:33 PT 14.3 SECONDS (9.7-12.2) H 06/09/17 06:24 INR 1.3 06/09/17 06:24 APTT 27 SECONDS (21-34) 06/09/17 06:24 - Constitutional Appears: No Acute Distress - ENT Exam ENT Exam: Mucous Membranes Moist - Respiratory Exam Respiratory Exam: Clear to Ausculation Bilateral - Cardiovascular Exam Cardiovascular Exam: Irregular Rhythm - GI/Abdominal Exam GI & Abdominal Exam: Soft. absent: Distended, Tenderness - Extremities Exam Extremities Exam: absent: Pedal Edema Additional comments: legs and feet in boots - Skin Skin Exam: Dry Assessment and Plan (1) Acute respiratory failure Status: Acute (2) Atrial fibrillation, new onset Status: Acute (3) CHF (congestive heart failure) Status: Chronic (4) COPD exacerbation Status: Acute (5) History of hypertension Status: Acute - Assessment and Plan (Free Text) Assessment: continue supportive care next dialysis tentatively 06/15
[2017-06-13] MEDS: Ferric Sodium Gluconat Complex 62.5 mg/5 ml Vial IVPB SCH ×2 (10:00→13:07)
[2017-06-13] MEDS: Multiple Vitamins Tab PO SCH (10:00)
[2017-06-13] MEDS: Dorzolamide 2% Opht Sol 10ml OU SCH ×3 (10:00→18:23)
--- NOTE | 2017-06-13 10:31 | CP.PCM.PN ---
<Santiago Lovelace - Last Filed: 06/13/17 12:32> Subjective - Date & Time of Evaluation Date of Evaluation: 06/13/17 Time of Evaluation: 12:16 - Subjective Subjective: Patient seen and examined at bedside this AM and in dialysis; patient has no acute complaints and no overnight events. Patient denies fevers/chills, SHAW, CP, SOB, abdominal pain, N/V/D, dysuria/freq/urg or lower extremity pain/swelling/ redness Objective - Vital Signs/Intake and Output Vital Signs (last 24 hours): Temp Pulse Resp BP Pulse Ox 98 F 98 H 20 108/67 96 06/13/17 07:00 06/13/17 07:00 06/13/17 07:00 06/13/17 07:00 06/13/17 07:00 Intake and Output: 06/13/17 06/13/17 06:59 18:59 Intake Total 150 Output Total 75 Balance 75 - Medications Medications: Current Medications Albuterol/Ipratropium (Duoneb 3 Mg/0.5 Mg (3 Ml) Ud) 3 ml INH RQ6 [facility] Last Admin: 06/13/17 07:28 Dose: 3 ml Calcium Acetate (Phoslo) 667 mg PO TIDCC [facility] Last Admin: 06/13/17 08:50 Dose: 667 mg Diltiazem HCl (Cardizem) 30 mg PO Q6H [facility] Last Admin: 06/13/17 05:27 Dose: 30 mg Dorzolamide HCl (Trusopt) 10 ml OU TID [facility] Last Admin: 06/12/17 19:00 Dose: 1 drop Epoetin Ken (Procrit) 10,000 unit IV MWF [facility] Last Admin: 06/12/17 12:17 Dose: 10,000 unit Ferric Sodium Gluconate Complex (Ferrlecit) 125 mg IVPB DAILY [facility] Stop: 06/20/17 14:31 Heparin Sodium (Porcine) (Heparin) 5,000 units SC Q12 [facility] Last Admin: 06/12/17 21:42 Dose: 5,000 units Heparin Sodium (Porcine) (Heparin) 3,700 units IVP DAILY [facility] Last Admin: 06/12/17 12:13 Dose: 3,700 units Montelukast Sodium (Singulair) 10 mg PO DAILY [facility] Last Admin: 06/12/17 13:17 Dose: 10 mg Morphine Sulfate (Morphine) 1 mg IVP Q4 PRN PRN Reason: Pain, moderate (4-7) Last Admin: 06/12/17 17:20 Dose: 1 mg Multivitamins (Hexavitamin) 1 tab PO DAILY [facility] Last Admin: 06/12/17 13:16 Dose: 1 tab Pantoprazole Sodium (Protonix Inj) 40 mg IVP DAILY [facility] Last Admin: 06/12/17 13:18 Dose: 40 mg - Labs Labs: 06/13/17 07:33 06/13/17 07:33 PT 14.3 SECONDS (9.7-12.2) H 06/09/17 06:24 INR 1.3 06/09/17 06:24 APTT 27 SECONDS (21-34) 06/09/17 06:24 - Constitutional Appears: Non-toxic - Head Exam Head Exam: ATRAUMATIC - Eye Exam Eye Exam: EOMI Pupil Exam: PERRL - ENT Exam ENT Exam: Mucous Membranes Moist, Normal Oropharynx - Neck Exam Neck Exam: Full ROM - Respiratory Exam Respiratory Exam: Clear to Ausculation Bilateral, NORMAL BREATHING PATTERN. absent: Rales, Rhonchi, Wheezes - Cardiovascular Exam Cardiovascular Exam: REGULAR RHYTHM - GI/Abdominal Exam GI & Abdominal Exam: Soft, Normal Bowel Sounds - Rectal Exam Rectal Exam: Deferred - Extremities Exam Extremities Exam: Full ROM. absent: Calf Tenderness, Pedal Edema - Back Exam Back Exam: NORMAL INSPECTION. absent: CVA tenderness (L), CVA tenderness (R) - Neurological Exam Neurological Exam: Alert, Awake, Oriented x3 - Psychiatric Exam Psychiatric exam: Normal Affect - Skin Skin Exam: Warm Assessment and Plan - Assessment and Plan (Free Text) Assessment: CEZAR (acute kidney injury) Nephrology Consult, Dr. Anderson Patient developed acute renal failure Patient is currently on hemodialysis - [facility] * Dr. Tristan consulted for Perma Cath placement;placed; patient received dialysis on 06/13 Renal US 06/11/17 - limited study due to patient's body habitus. No calculus or hydronephrosis identified b/l. Probable right renal cortical cyst measures approximately 0.7 x 0.4 x 0.8 cm Patient is scheduled for AVF on Thursday Pneumonia; resolved Patient was treated with Zosyn. Completeled treatment and is currently off all antibiotics now. Acute respiratory failure with hypoxia and hypercapnia; resolved Patient was intubated and extubated twice. Now patient is monitored on oxygen by nasal cannula. Respiratory status stable. Continue to monitor. COPD exacerbation; resolved Pulmonology Consult, Dr. Camejo Continue nebulizing treatment. s/p extubation twice Atrial fibrillation, new onset Rate controlled - Diltiazem 30mg PO Q6H Not on anticoagulation because of anemia and ecchymosis patient will need cardiology f/u on discharge On Ferrlecit for Anemia CHF (congestive heart failure); diastolic dysfunction with preserved EF CXR 06/09 : stable cardiomegaly, small bilateral pleural effusions noted EF 57.8% Cont to monitor on Lasix PRN Elevated WBCs Infectious Disease consulted, Dr. Ospina 12.3 on 06/13; no fevers/complaints off of all antibiotics Abnormal RBCs Hematology Oncology consulted, Dr. Mills HTN -c/w diltiazem Breast Rash - Resolved Nystatin topical powder discontinued - completed treatment - 14 days total Sacral Decubitus Ulcer Located on the right upper buttocks Started on Aloe [place] lotion TID Turn pt every 2 hours Prophylactic measure Heparin SC 5000 Q12 restarted yesterday Protonix 40 mg IV daily Case discussed with Dr. Davalos <Pawan Davalos - Last Filed: 06/14/17 13:21> Objective - Vital Signs/Intake and Output Vital Signs (last 24 hours): Temp Pulse Resp BP Pulse Ox 98 F 99 H 20 100/62 98 06/14/17 08:00 06/14/17 08:00 06/14/17 08:00 06/14/17 08:00 06/14/17 08:00 Intake and Output: 06/14/17 06/14/17 06:59 18:59 Intake Total 50 Output Total 50 Balance 0 - Medications Medications: Current Medications Albuterol/Ipratropium (Duoneb 3 Mg/0.5 Mg (3 Ml) Ud) 3 ml INH RQ6 [facility] Last Admin: 06/14/17 08:32 Dose: 3 ml Calcium Acetate (Phoslo) 667 mg PO TIDCC [facility] Last Admin: 06/14/17 08:47 Dose: 667 mg Diltiazem HCl (Cardizem) 30 mg PO Q6H [facility] Last Admin: 06/14/17 05:36 Dose: 30 mg Dorzolamide HCl (Trusopt) 10 ml OU TID [facility] Last Admin: 06/13/17 18:23 Dose: 1 drop Epoetin Ken (Procrit) 10,000 unit IV MWF [facility] Last Admin: 06/12/17 12:17 Dose: 10,000 unit Ferric Sodium Gluconate Complex (Ferrlecit) 125 mg IVPB DAILY [facility] Stop: 06/20/17 14:31 Last Admin: 06/14/17 09:36 Dose: 125 mg Montelukast Sodium (Singulair) 10 mg PO DAILY [facility] Last Admin: 06/14/17 09:37 Dose: 10 mg Morphine Sulfate (Morphine) 1 mg IVP Q4 PRN PRN Reason: Pain, moderate (4-7) Last Admin: 06/13/17 21:55 Dose: 1 mg Multivitamins (Hexavitamin) 1 tab PO DAILY [facility] Last Admin: 06/14/17 09:37 Dose: 1 tab Pantoprazole Sodium (Protonix Inj) 40 mg IVP DAILY [facility] Last Admin: 06/14/17 09:37 Dose: 40 mg - Labs Labs: 06/14/17 08:21 06/14/17 08:27 PT 14.3 SECONDS (9.7-12.2) H 06/09/17 06:24 INR 1.3 06/09/17 06:24 APTT 27 SECONDS (21-34) 06/09/17 06:24 Attending/Attestation - Attestation I have personally seen and examined this patient.: Yes I have fully participated in the care of the patient.: Yes I have reviewed all pertinent clinical information, including history, physical exam and plan: Yes Notes (Text): CEZAR (acute kidney injury) now ESRD on HD planned av fistula Pneumonia completed abx Acute respiratory failure with hypoxia and hypercapnia Patient was intubated and extubated twice. Now patient is monitored on oxygen by nasal cannula. Respiratory status stable. Continue to monitor. COPD exacerbation ANTHONY likely as well Obesity hypoventilation also contributing to respiratory problems Morbid obesity BMI 37.9
--- NOTE | 2017-06-13 21:37 | CP.PCM.PN ---
Subjective - Date & Time of Evaluation Date of Evaluation: 06/13/17 Time of Evaluation: 14:30 - Subjective Subjective: Patient seen and evaluated Physical examination - Head Exam Head Exam: ATRAUMATIC, NORMAL INSPECTION - Eye Exam Eye Exam: PERRL - ENT Exam ENT Exam: Mucous Membranes Moist - Neck Exam Neck Exam: Normal Inspection - Respiratory Exam Respiratory Exam: Decreased Breath Sounds - Cardiovascular Exam Cardiovascular Exam: Irregular Rhythm, +S1, +S2 - GI/Abdominal Exam GI & Abdominal Exam: Normal Bowel Sounds - Skin Skin Exam: Warm Objective - Vital Signs/Intake and Output Vital Signs (last 24 hours): Temp Pulse Resp BP Pulse Ox 97.2 F L 103 H 20 121/74 100 06/13/17 15:00 06/13/17 15:00 06/13/17 15:00 06/13/17 15:00 06/13/17 15:00 - Medications Medications: Current Medications Albuterol/Ipratropium (Duoneb 3 Mg/0.5 Mg (3 Ml) Ud) 3 ml INH RQ6 [facility] Last Admin: 06/13/17 20:15 Dose: 3 ml Calcium Acetate (Phoslo) 667 mg PO TIDCC [facility] Last Admin: 06/13/17 18:22 Dose: 667 mg Diltiazem HCl (Cardizem) 30 mg PO Q6H [facility] Last Admin: 06/13/17 18:23 Dose: 30 mg Dorzolamide HCl (Trusopt) 10 ml OU TID [facility] Last Admin: 06/13/17 18:23 Dose: 1 drop Epoetin Ken (Procrit) 10,000 unit IV MWF [facility] Last Admin: 06/12/17 12:17 Dose: 10,000 unit Ferric Sodium Gluconate Complex (Ferrlecit) 125 mg IVPB DAILY [facility] Stop: 06/20/17 14:31 Last Admin: 06/13/17 13:07 Dose: 125 mg Montelukast Sodium (Singulair) 10 mg PO DAILY [facility] Last Admin: 06/13/17 10:00 Dose: Not Given Morphine Sulfate (Morphine) 1 mg IVP Q4 PRN PRN Reason: Pain, moderate (4-7) Last Admin: 06/12/17 17:20 Dose: 1 mg Multivitamins (Hexavitamin) 1 tab PO DAILY [facility] Last Admin: 06/13/17 10:00 Dose: Not Given Pantoprazole Sodium (Protonix Inj) 40 mg IVP DAILY [facility] Last Admin: 06/13/17 10:00 Dose: Not Given - Labs Labs: 06/13/17 07:33 06/13/17 07:33 PT 14.3 SECONDS (9.7-12.2) H 06/09/17 06:24 INR 1.3 06/09/17 06:24 APTT 27 SECONDS (21-34) 06/09/17 06:24 Assessment and Plan - Assessment and Plan (Free Text) Assessment: (1) Atrial fibrillation, new onset Status: Acute (2) CHF (congestive heart failure) Status: Chronic (3) Elevated troponin Status: Acute (4) Prophylactic measure Status: Acute - Assessment and Plan (Free Text) Assessment: Atrial fibrillation, new onset Assessment & Plan: Rate controlled on Diltiazem CHADs Score of 5- Patient off Lovenox due to anemia and new onset ecchymosis. Will continue to monitor. On Ferrlecit for Anemia Status: Acute CHF (congestive heart failure) Assessment & Plan: CXR 06/09 : stable cardiomegaly, small bilateral pleural effusions noted EF 57.8% Cont to monitor on Lasix PRN Status: Acute Blood pressure elevated Assessment & Plan: Blood pressure has been elevated for most of the morning. Will not treat acute rises in blood pressure. Will continue to monitor at this time and then assess. Considerations for pain control and to minimize need for fluid administration . Elevated troponin Assessment & Plan: On admission elevated; likely secondary to then CHF exacerbation Cont to monitor Status: Acute Prophylactic measure Assessment & Plan: Heparin SC 5000 Q12 restarted today Protonix 40 mg IV daily Status: Acute
[2017-06-14] MEDS: Albuterol-Ipratrop 3 mg / 0.5 (3 ml) UD INH SCH ×4 (01:22→20:19)
[2017-06-14 08:32] LABS: BASO # 0.1 K/uL (0.0-0.2); BASO % 1.2 % (0.0-2.0); EOS # 0.1 K/uL (0.0-0.7); EOS % 0.7 % (0.0-4.0); HEMATOCRIT 31.9 % (34.0-47.0); LYMPH # 1.5 K/uL (1.0-4.3); LYMPH % 13.8 % (20.0-40.0); MEAN CELL VOLUME 95.1 fL (81.0-99.0); MEAN CORPUSCULAR HEMOGLOBIN 31.3 pg (27.0-31.0); MEAN CORPUSCULAR HGB CONC 32.9 g/dL (33.0-37.0); MONO # 0.9 K/uL (0.0-0.8); MONO % 8.5 % (0.0-10.0); NRBC % 2.6 % (0.0-2.0); RED CELL DISTRIBUTION WIDTH 24.9 % (11.5-14.5); WHITE BLOOD COUNT 10.6 K/uL (4.8-10.8)
[2017-06-14 09:04] LABS: POTASSIUM 4.2 mmol/L (3.6-5.2)
[2017-06-14 09:06] LABS: ALB/GLOB RATIO 1.1 (1.0-2.1); BILIRUBIN,TOTAL 2.2 mg/dL (0.2-1.3); TOTAL PROTEIN 7.3 g/dL (6.3-8.3)
[2017-06-14 09:07] LABS: CALCIUM 9.6 mg/dl (8.6-10.4); MAGNESIUM 2.2 mg/dL (1.6-2.3); PHOSPHOROUS 6.4 mg/dL (2.5-4.5)
[2017-06-14] MEDS: Ferric Sodium Gluconat Complex 62.5 mg/5 ml Vial IVPB SCH (09:36)
[2017-06-14] MEDS: Multiple Vitamins Tab PO SCH (09:37)
[2017-06-14] MEDS: Dorzolamide 2% Opht Sol 10ml OU SCH ×3 (09:45→18:25)
--- NOTE | 2017-06-14 10:33 | CP.PCM.PCO ---
Physician Communication Note - Physician Communication Note Physician Communication Note: Pt and family declining AVF creation at this time.
--- NOTE | 2017-06-14 13:52 | CP.PCM.PN ---
<Santiago Lovelace - Last Filed: 06/14/17 13:53> Subjective - Date & Time of Evaluation Date of Evaluation: 06/14/17 Time of Evaluation: 13:54 - Subjective Subjective: Patient seen and examined at bedside this AM; denies any complaints; really does not want to do the AVF surgery but when explained benefits and risks of not doing it the patient agrees as well as family at bedside; she denies fevers/ chills, SHAW, CP, SOB, abdominal pain, N/V/D, dysuria/freq/urg, or lower extremity pain/swelling. Objective - Vital Signs/Intake and Output Vital Signs (last 24 hours): Temp Pulse Resp BP Pulse Ox 98 F 99 H 20 100/62 98 06/14/17 08:00 06/14/17 08:00 06/14/17 08:00 06/14/17 08:00 06/14/17 08:00 Intake and Output: 06/14/17 06/14/17 06:59 18:59 Intake Total 50 Output Total 50 Balance 0 - Medications Medications: Current Medications Albuterol/Ipratropium (Duoneb 3 Mg/0.5 Mg (3 Ml) Ud) 3 ml INH RQ6 [facility] Last Admin: 06/14/17 13:25 Dose: Not Given Calcium Acetate (Phoslo) 667 mg PO TIDCC [facility] Last Admin: 06/14/17 08:47 Dose: 667 mg Diltiazem HCl (Cardizem) 30 mg PO Q6H [facility] Last Admin: 06/14/17 05:36 Dose: 30 mg Dorzolamide HCl (Trusopt) 10 ml OU TID [facility] Last Admin: 06/13/17 18:23 Dose: 1 drop Epoetin Ken (Procrit) 10,000 unit IV MWF [facility] Last Admin: 06/12/17 12:17 Dose: 10,000 unit Ferric Sodium Gluconate Complex (Ferrlecit) 125 mg IVPB DAILY [facility] Stop: 06/20/17 14:31 Last Admin: 06/14/17 09:36 Dose: 125 mg Montelukast Sodium (Singulair) 10 mg PO DAILY [facility] Last Admin: 06/14/17 09:37 Dose: 10 mg Morphine Sulfate (Morphine) 1 mg IVP Q4 PRN PRN Reason: Pain, moderate (4-7) Last Admin: 06/13/17 21:55 Dose: 1 mg Multivitamins (Hexavitamin) 1 tab PO DAILY [facility] Last Admin: 06/14/17 09:37 Dose: 1 tab Pantoprazole Sodium (Protonix Inj) 40 mg IVP DAILY [facility] Last Admin: 06/14/17 09:37 Dose: 40 mg - Labs Labs: 06/14/17 08:21 06/14/17 08:27 PT 14.3 SECONDS (9.7-12.2) H 06/09/17 06:24 INR 1.3 06/09/17 06:24 APTT 27 SECONDS (21-34) 06/09/17 06:24 - Constitutional Appears: Non-toxic - Head Exam Head Exam: ATRAUMATIC - Eye Exam Eye Exam: EOMI Pupil Exam: PERRL - ENT Exam ENT Exam: Mucous Membranes Moist - Neck Exam Neck Exam: Full ROM - Respiratory Exam Respiratory Exam: Rales. absent: Clear to Ausculation Bilateral - Cardiovascular Exam Cardiovascular Exam: REGULAR RHYTHM - Extremities Exam Extremities Exam: Normal Capillary Refill Additional comments: bruising b/l arms (echymossis) - Back Exam Back Exam: absent: CVA tenderness (L), CVA tenderness (R) - Neurological Exam Neurological Exam: Alert, Awake - Psychiatric Exam Psychiatric exam: Normal Affect - Skin Skin Exam: Warm Assessment and Plan - Assessment and Plan (Free Text) Assessment: CEZAR (acute kidney injury) Nephrology Consult, Dr. Anderson Patient developed acute renal failure Patient is currently on hemodialysis - MWF * Dr. Tristan consulted for Perma Cath placement;placed; patient received dialysis on 06/13 Renal US 06/11/17 - limited study due to patient's body habitus. No calculus or hydronephrosis identified b/l. Probable right renal cortical cyst measures approximately 0.7 x 0.4 x 0.8 cm Patient is scheduled for AVF on Thursday; entire family at bedside conversation was had about how patient needs AVF done as soon as possible as the AVF needs months to become viable; patients family agreed to have procedure done as it is necessary Pneumonia; resolved Patient was treated with Zosyn. Completeled treatment and is currently off all antibiotics now. Acute respiratory failure with hypoxia and hypercapnia; resolved Patient was intubated and extubated twice. Now patient is monitored on oxygen by nasal cannula. Respiratory status stable. Continue to monitor. COPD exacerbation; resolved Pulmonology Consult, Dr. Camejo Continue nebulizing treatment. s/p extubation twice Atrial fibrillation, new onset Rate controlled - Diltiazem 30mg PO Q6H Not on anticoagulation because of anemia and ecchymosis patient will need cardiology f/u on discharge On Ferrlecit for Anemia CHF (congestive heart failure); diastolic dysfunction with preserved EF CXR 06/09 : stable cardiomegaly, small bilateral pleural effusions noted EF 57.8% Cont to monitor on Lasix PRN Elevated WBCs Infectious Disease consulted, Dr. Ospina 12.3 on 06/13; no fevers/complaints off of all antibiotics Abnormal RBCs Hematology Oncology consulted, Dr. Mills HTN -c/w diltiazem Breast Rash - Resolved Nystatin topical powder discontinued - completed treatment - 14 days total Sacral Decubitus Ulcer Located on the right upper buttocks Started on Aloe [place] lotion TID Turn pt every 2 hours Prophylactic measure Heparin SC 5000 Q12 restarted yesterday Protonix 40 mg IV daily Case discussed with Dr. Davalos <Pawan Davalos - Last Filed: 06/14/17 14:52> Objective - Vital Signs/Intake and Output Vital Signs (last 24 hours): Temp Pulse Resp BP Pulse Ox 98 F 99 H 20 100/62 98 06/14/17 08:00 06/14/17 08:00 06/14/17 08:00 06/14/17 08:00 06/14/17 08:00 Intake and Output: 06/14/17 06/14/17 06:59 18:59 Intake Total 50 Output Total 50 Balance 0 - Medications Medications: Current Medications Albuterol/Ipratropium (Duoneb 3 Mg/0.5 Mg (3 Ml) Ud) 3 ml INH RQ6 [facility] Last Admin: 06/14/17 13:25 Dose: Not Given Calcium Acetate (Phoslo) 667 mg PO TIDCC [facility] Last Admin: 06/14/17 08:47 Dose: 667 mg Diltiazem HCl (Cardizem) 30 mg PO Q6H [facility] Last Admin: 06/14/17 05:36 Dose: 30 mg Dorzolamide HCl (Trusopt) 10 ml OU TID [facility] Last Admin: 06/14/17 14:36 Dose: 1 drop Epoetin Ken (Procrit) 10,000 unit IV MWF [facility] Last Admin: 06/12/17 12:17 Dose: 10,000 unit Ferric Sodium Gluconate Complex (Ferrlecit) 125 mg IVPB DAILY [facility] Stop: 06/20/17 14:31 Last Admin: 06/14/17 09:36 Dose: 125 mg Montelukast Sodium (Singulair) 10 mg PO DAILY [facility] Last Admin: 06/14/17 09:37 Dose: 10 mg Morphine Sulfate (Morphine) 1 mg IVP Q4 PRN PRN Reason: Pain, moderate (4-7) Last Admin: 06/13/17 21:55 Dose: 1 mg Multivitamins (Hexavitamin) 1 tab PO DAILY [facility] Last Admin: 06/14/17 09:37 Dose: 1 tab Pantoprazole Sodium (Protonix Inj) 40 mg IVP DAILY [facility] Last Admin: 06/14/17 09:37 Dose: 40 mg - Labs Labs: 06/14/17 08:21 06/14/17 08:27 PT 14.3 SECONDS (9.7-12.2) H 06/09/17 06:24 INR 1.3 06/09/17 06:24 APTT 27 SECONDS (21-34) 06/09/17 06:24 Attending/Attestation - Attestation I have personally seen and examined this patient.: Yes I have fully participated in the care of the patient.: Yes I have reviewed all pertinent clinical information, including history, physical exam and plan: Yes Notes (Text): CEZAR (acute kidney injury) now ESRD on HD planned av fistula Pneumonia completed abx Acute respiratory failure with hypoxia and hypercapnia Patient was intubated and extubated twice. Now patient is monitored on oxygen by nasal cannula. Respiratory status stable. Continue to monitor. COPD exacerbation ANTHONY likely as well Obesity hypoventilation also contributing to respiratory problems Morbid obesity BMI 37.9
--- NOTE | 2017-06-14 21:53 | CP.PCM.PN ---
Subjective - Date & Time of Evaluation Date of Evaluation: 06/14/17 Time of Evaluation: 17:05 - Subjective Subjective: Patient seen and evaluated Comfortable Physical Examination - Constitutional Appears: Non-toxic - Head Exam Head Exam: ATRAUMATIC - Eye Exam Eye Exam: EOMI Pupil Exam: PERRL - ENT Exam ENT Exam: Mucous Membranes Moist - Neck Exam Neck Exam: Full ROM - Respiratory Exam Respiratory Exam: Rales. absent: Clear to Ausculation Bilateral - Cardiovascular Exam Cardiovascular Exam: REGULAR RHYTHM - Extremities Exam Extremities Exam: Normal Capillary Refill Additional comments: bruising b/l arms (echymossis) - Back Exam Back Exam: absent: CVA tenderness (L), CVA tenderness (R) - Neurological Exam Neurological Exam: Alert, Awake - Psychiatric Exam Psychiatric exam: Normal Affect - Skin Skin Exam: Warm Objective - Vital Signs/Intake and Output Vital Signs (last 24 hours): Temp Pulse Resp BP Pulse Ox 98 F 95 H 18 100/70 96 06/14/17 19:36 06/14/17 19:36 06/14/17 19:36 06/14/17 19:36 06/14/17 19:36 Intake and Output: 06/14/17 06/15/17 18:59 06:59 Output Total 20 Balance -20 - Medications Medications: Current Medications Albuterol/Ipratropium (Duoneb 3 Mg/0.5 Mg (3 Ml) Ud) 3 ml INH RQ6 [facility] Last Admin: 06/14/17 20:19 Dose: 3 ml Calcium Acetate (Phoslo) 667 mg PO TIDCC [facility] Last Admin: 06/14/17 18:20 Dose: 667 mg Diltiazem HCl (Cardizem) 30 mg PO Q6H [facility] Last Admin: 06/14/17 05:36 Dose: 30 mg Dorzolamide HCl (Trusopt) 10 ml OU TID [facility] Last Admin: 06/14/17 14:36 Dose: 1 drop Epoetin Ken (Procrit) 10,000 unit IV MWF [facility] Last Admin: 06/12/17 12:17 Dose: 10,000 unit Ferric Sodium Gluconate Complex (Ferrlecit) 125 mg IVPB DAILY [facility] Stop: 06/20/17 14:31 Last Admin: 06/14/17 09:36 Dose: 125 mg Montelukast Sodium (Singulair) 10 mg PO DAILY [facility] Last Admin: 06/14/17 09:37 Dose: 10 mg Morphine Sulfate (Morphine) 1 mg IVP Q4 PRN PRN Reason: Pain, moderate (4-7) Last Admin: 06/13/17 21:55 Dose: 1 mg Multivitamins (Hexavitamin) 1 tab PO DAILY [facility] Last Admin: 06/14/17 09:37 Dose: 1 tab Pantoprazole Sodium (Protonix Inj) 40 mg IVP DAILY [facility] Last Admin: 06/14/17 09:37 Dose: 40 mg - Labs Labs: 06/14/17 08:21 06/14/17 08:27 PT 14.3 SECONDS (9.7-12.2) H 06/09/17 06:24 INR 1.3 06/09/17 06:24 APTT 27 SECONDS (21-34) 06/09/17 06:24 Assessment and Plan - Assessment and Plan (Free Text) Assessment: CEZAR (acute kidney injury) Nephrology Consult, Dr. Anderson Patient developed acute renal failure Patient is currently on hemodialysis - MWF * Dr. Tristan consulted for Perma Cath placement;placed; patient received dialysis on 06/13 Renal US 06/11/17 - limited study due to patient's body habitus. No calculus or hydronephrosis identified b/l. Probable right renal cortical cyst measures approximately 0.7 x 0.4 x 0.8 cm Patient is scheduled for AVF on Thursday; entire family at bedside conversation was had about how patient needs AVF done as soon as possible as the AVF needs months to become viable; patients family agreed to have procedure done as it is necessary Pneumonia; resolved Patient was treated with Zosyn. Completeled treatment and is currently off all antibiotics now. Acute respiratory failure with hypoxia and hypercapnia; resolved Patient was intubated and extubated twice. Now patient is monitored on oxygen by nasal cannula. Respiratory status stable. Continue to monitor. COPD exacerbation; resolved Pulmonology Consult, Dr. Camejo Continue nebulizing treatment. s/p extubation twice Atrial fibrillation, new onset Rate controlled - Diltiazem 30mg PO Q6H Not on anticoagulation because of anemia and ecchymosis patient will need cardiology f/u on discharge On Ferrlecit for Anemia CHF (congestive heart failure); diastolic dysfunction with preserved EF CXR 06/09 : stable cardiomegaly, small bilateral pleural effusions noted EF 57.8% Cont to monitor on Lasix PRN Elevated WBCs Infectious Disease consulted, Dr. Ospina 12.3 on 06/13; no fevers/complaints off of all antibiotics Abnormal RBCs Hematology Oncology consulted, Dr. Mills HTN -c/w diltiazem Breast Rash - Resolved Nystatin topical powder discontinued - completed treatment - 14 days total Sacral Decubitus Ulcer Located on the right upper buttocks Started on Aloe [place] lotion TID Turn pt every 2 hours Prophylactic measure Heparin SC 5000 Q12 restarted yesterday Protonix 40 mg IV daily
[2017-06-15] MEDS: Albuterol-Ipratrop 3 mg / 0.5 (3 ml) UD INH SCH ×3 (01:25→13:35)
--- NOTE | 2017-06-15 07:59 | CP.PCM.PN ---
Subjective - Date & Time of Evaluation Date of Evaluation: 06/15/17 Time of Evaluation: 07:00 - Subjective Subjective: General Surgery Progress Note for Dr. Tristan Patient seen and examined today and in no acute distress. Patient wants her son to be spoken to. Patient denies any pain. Objective - Vital Signs/Intake and Output Vital Signs (last 24 hours): Temp Pulse Resp BP Pulse Ox 98.1 F 94 H 20 107/68 97 06/15/17 05:01 06/15/17 05:01 06/15/17 05:01 06/15/17 05:01 06/15/17 05:01 Intake and Output: 06/15/17 06/15/17 06:59 18:59 Intake Total 200 Output Total 30 50 Balance 170 -50 - Medications Medications: Current Medications Albuterol/Ipratropium (Duoneb 3 Mg/0.5 Mg (3 Ml) Ud) 3 ml INH RQ6 [facility] Last Admin: 06/15/17 07:17 Dose: 3 ml Calcium Acetate (Phoslo) 667 mg PO TIDCC [facility] Last Admin: 06/14/17 18:30 Dose: 667 mg Diltiazem HCl (Cardizem) 30 mg PO Q6H [facility] Last Admin: 06/15/17 05:03 Dose: 30 mg Dorzolamide HCl (Trusopt) 10 ml OU TID [facility] Last Admin: 06/14/17 18:25 Dose: 1 drop Epoetin Ken (Procrit) 10,000 unit IV MWF [facility] Last Admin: 06/12/17 12:17 Dose: 10,000 unit Ferric Sodium Gluconate Complex (Ferrlecit) 125 mg IVPB DAILY [facility] Stop: 06/20/17 14:31 Last Admin: 06/14/17 09:36 Dose: 125 mg Montelukast Sodium (Singulair) 10 mg PO DAILY [facility] Last Admin: 06/14/17 09:37 Dose: 10 mg Morphine Sulfate (Morphine) 1 mg IVP Q4 PRN PRN Reason: Pain, moderate (4-7) Last Admin: 06/13/17 21:55 Dose: 1 mg Multivitamins (Hexavitamin) 1 tab PO DAILY [facility] Last Admin: 06/14/17 09:37 Dose: 1 tab Pantoprazole Sodium (Protonix Inj) 40 mg IVP DAILY [facility] Last Admin: 06/14/17 09:37 Dose: 40 mg - Labs Labs: 06/14/17 08:21 06/14/17 08:27 PT 14.3 SECONDS (9.7-12.2) H 06/09/17 06:24 INR 1.3 06/09/17 06:24 APTT 27 SECONDS (21-34) 06/09/17 06:24 - Constitutional Appears: Non-toxic, No Acute Distress - Head Exam Head Exam: ATRAUMATIC, NORMAL INSPECTION, NORMOCEPHALIC - Eye Exam Eye Exam: EOMI, Normal appearance - Respiratory Exam Respiratory Exam: absent: Accessory Muscle Use, Respiratory Distress - Cardiovascular Exam Cardiovascular Exam: REGULAR RHYTHM - GI/Abdominal Exam GI & Abdominal Exam: Soft. absent: Tenderness - Extremities Exam Additional comments: ecchymosis on upper extremities b/l - Neurological Exam Neurological Exam: Alert, Awake - Psychiatric Exam Psychiatric exam: Normal Affect, Normal Mood - Skin Skin Exam: Intact, Warm. absent: Normal Color Additional comments: ecchymosis on upper extremities b/l Assessment and Plan - Assessment and Plan (Free Text) Assessment: 76 F with PMH of ESRD on HD s/p permacath placement POD #6 -continue monitoring labs -patient to get AVF once medically stable -continue medical management as per primary -TOMEKA Tristan
[2017-06-15] MEDS: Ferric Sodium Gluconat Complex 62.5 mg/5 ml Vial IVPB SCH (09:31)
[2017-06-15] MEDS: Dorzolamide 2% Opht Sol 10ml OU SCH ×3 (09:35→18:00)
[2017-06-15] MEDS: Epoetin Alfa 10,000 unit/ml Dialysis IV SCH ×2 (09:38→17:39)
[2017-06-15] MEDS ORDERED: ceFAZolin IV 1 gm in Dextrose 1 GM/50 ML BAG IVPB ONE (10:37)
[2017-06-15] MEDS ORDERED: HEPARIN-NS 5,000 UNITS/500 ML 5,000 UNIT/500 ML BAG IV ONE (10:37)
[2017-06-15] MEDS ORDERED: Lidocaine 1% Inj (20ml) ONE (10:37)
[2017-06-15] MEDS: Multiple Vitamins Tab PO SCH (10:41)
[2017-06-15] MEDS ORDERED: ceFAZolin IV 2 gm in Dextrose 0 GM/0 ML BAG IVPB ONE (11:08)
[2017-06-15] MEDS ORDERED: Sodium Chloride 0.9% 500 ML IV ONE (11:39)
--- NOTE | 2017-06-15 11:42 | CP.PCM.PN ---
<Gena Matthew - Last Filed: 06/15/17 16:14> Subjective - Date & Time of Evaluation Date of Evaluation: 06/15/17 Time of Evaluation: 09:45 - Subjective Subjective: Cardiology Progress Note- Dr. Hart's service Pt seen and examined in no acute distress. Patient did not want to talk at the moment. She wanted to rest. Patient is to have AV fistula today. She did not comply with a ROS. Objective - Vital Signs/Intake and Output Vital Signs (last 24 hours): Temp Pulse Resp BP Pulse Ox 98.1 F 94 H 20 107/68 97 06/15/17 05:01 06/15/17 05:01 06/15/17 05:01 06/15/17 05:01 06/15/17 05:01 Intake and Output: 06/15/17 06/15/17 06:59 18:59 Intake Total 200 Output Total 30 50 Balance 170 -50 - Medications Medications: Current Medications Albuterol/Ipratropium (Duoneb 3 Mg/0.5 Mg (3 Ml) Ud) 3 ml INH RQ6 [facility] Last Admin: 06/15/17 07:17 Dose: 3 ml Calcium Acetate (Phoslo) 667 mg PO TIDCC [facility] Last Admin: 06/15/17 08:30 Dose: Not Given Diltiazem HCl (Cardizem) 30 mg PO Q6H [facility] Last Admin: 06/15/17 05:03 Dose: 30 mg Dorzolamide HCl (Trusopt) 10 ml OU TID [facility] Last Admin: 06/15/17 09:35 Dose: 1 drop Epoetin Ken (Procrit) 10,000 unit IV MWF [facility] Last Admin: 06/15/17 09:38 Dose: Not Given Ferric Sodium Gluconate Complex (Ferrlecit) 125 mg IVPB DAILY [facility] Stop: 06/20/17 14:31 Last Admin: 06/15/17 09:31 Dose: 125 mg Montelukast Sodium (Singulair) 10 mg PO DAILY [facility] Last Admin: 06/15/17 10:41 Dose: 10 mg Morphine Sulfate (Morphine) 1 mg IVP Q4 PRN PRN Reason: Pain, moderate (4-7) Last Admin: 06/13/17 21:55 Dose: 1 mg Multivitamins (Hexavitamin) 1 tab PO DAILY [facility] Last Admin: 10/02/17 10:41 Dose: 1 tab Pantoprazole Sodium (Protonix Inj) 40 mg IVP DAILY [facility] Last Admin: 06/15/17 09:30 Dose: 40 mg - Labs Labs: 06/14/17 08:21 06/14/17 08:27 PT 14.3 SECONDS (9.7-12.2) H 06/09/17 06:24 INR 1.3 06/09/17 06:24 APTT 27 SECONDS (21-34) 06/09/17 06:24 - Constitutional Appears: Non-toxic, No Acute Distress - Head Exam Head Exam: ATRAUMATIC, NORMAL INSPECTION, NORMOCEPHALIC - Eye Exam Eye Exam: EOMI, Normal appearance, PERRL - ENT Exam ENT Exam: Mucous Membranes Moist - Neck Exam Neck Exam: Full ROM - Respiratory Exam Respiratory Exam: NORMAL BREATHING PATTERN - Cardiovascular Exam Cardiovascular Exam: +S1, +S2. absent: JVD, Murmur - GI/Abdominal Exam GI & Abdominal Exam: Soft, Normal Bowel Sounds - Extremities Exam Extremities Exam: Full ROM, Pedal Edema - Neurological Exam Neurological Exam: Alert, Awake - Psychiatric Exam Psychiatric exam: Flat Affect - Skin Skin Exam: Dry, Warm Additional comments: ecchymosis noted on arms- not increased in nature Assessment and Plan (1) Atrial fibrillation, new onset Status: Acute (2) CHF (congestive heart failure) Status: Chronic (3) Elevated troponin Status: Acute (4) Prophylactic measure Status: Acute - Assessment and Plan (Free Text) Assessment: Atrial fibrillation, new onset Assessment & Plan: Rate controlled on Diltiazem 30 mg Q6H CHADs Score of 5- Patient off Lovenox due to anemia and ecchymosis. Will need to determine anticoagulation measures. At this time, on DVT prophylaxis solely. On Ferrlecit for Anemia Status: Acute CHF (congestive heart failure) Assessment & Plan: CXR 06/09 : stable cardiomegaly, small bilateral pleural effusions noted EF 57.8% Cont to monitor on Lasix PRN Status: Acute ESRD on HD MWF Assessment & Plan: Patient due for AVF today Status: Chronic Elevated troponin Assessment & Plan: On admission elevated; likely secondary to then CHF exacerbation Cont to monitor Status: Acute Prophylactic measure Assessment & Plan: Heparin SC 5000 Q12 Protonix 40 mg IV daily Status: Acute Discussed with Dr. Hart. All management and planning per Dr. Hart. <Ish Hart - Last Filed: 06/15/17 22:37> Objective - Vital Signs/Intake and Output Vital Signs (last 24 hours): Temp Pulse Resp BP Pulse Ox 98.1 F 107 H 20 105/67 98 06/15/17 22:06 06/15/17 22:06 06/15/17 22:06 06/15/17 22:06 06/15/17 22:06 Intake and Output: 06/15/17 06/16/17 18:59 06:59 Output Total 80 Balance -80 - Medications Medications: Current Medications Calcium Acetate (Phoslo) 667 mg PO TIDCC [facility] Last Admin: 06/15/17 18:00 Dose: Not Given Diltiazem HCl (Cardizem) 30 mg PO Q6H [facility] Last Admin: 06/15/17 18:00 Dose: Not Given Dorzolamide HCl (Trusopt) 10 ml OU TID [facility] Last Admin: 06/15/17 18:00 Dose: Not Given Epoetin Ken (Procrit) 10,000 unit IV MWF [facility] Last Admin: 06/15/17 17:39 Dose: 10,000 unit Ferric Sodium Gluconate Complex (Ferrlecit) 125 mg IVPB DAILY [facility] Stop: 06/20/17 14:31 Last Admin: 06/15/17 09:31 Dose: 125 mg Montelukast Sodium (Singulair) 10 mg PO DAILY [facility] Last Admin: 06/15/17 10:41 Dose: 10 mg Morphine Sulfate (Morphine) 2 mg IVP Q4 PRN PRN Reason: Pain, moderate (4-7) Multivitamins (Hexavitamin) 1 tab PO DAILY [facility] Last Admin: 06/15/17 10:41 Dose: 1 tab Ondansetron HCl (Zofran Inj) 4 mg IVP Q6H PRN PRN Reason: Nausea/Vomiting Pantoprazole Sodium (Protonix Inj) 40 mg IVP DAILY [facility] Last Admin: 06/15/17 09:30 Dose: 40 mg - Labs Labs: 06/14/17 08:21 06/14/17 08:27 PT 14.3 SECONDS (9.7-12.2) H 06/09/17 06:24 INR 1.3 06/09/17 06:24 APTT 27 SECONDS (21-34) 06/09/17 06:24 Assessment and Plan - Assessment and Plan (Free Text) Assessment: Patient seen and evaluated with the medical supply technician Plan of care as discussed
[2017-06-15] MEDS ORDERED: Propofol 10 mg/ml Inj (20 ML) ONE (11:47)
[2017-06-15] MEDS ORDERED: Midazolam 2 MG/2 ML VIAL ONE (11:47)
--- NOTE | 2017-06-15 13:27 | CP.PCM.PN ---
Subjective - Date & Time of Evaluation Date of Evaluation: 06/15/17 Time of Evaluation: 13:25 - Subjective Subjective: For AV access now Will schedule dialysis post procedure Dialysis course has been stable No new f, c, n, v, CPs, SOD Objective - Vital Signs/Intake and Output Vital Signs (last 24 hours): Temp Pulse Resp BP Pulse Ox 98.1 F 94 H 20 107/68 97 06/15/17 05:01 06/15/17 05:01 06/15/17 05:01 06/15/17 05:01 06/15/17 05:01 Intake and Output: 06/15/17 06/15/17 06:59 18:59 Intake Total 200 Output Total 30 50 Balance 170 -50 - Medications Medications: Current Medications Albuterol/Ipratropium (Duoneb 3 Mg/0.5 Mg (3 Ml) Ud) 3 ml INH RQ6 [facility] Last Admin: 06/15/17 07:17 Dose: 3 ml Calcium Acetate (Phoslo) 667 mg PO TIDCC [facility] Last Admin: 06/15/17 08:30 Dose: Not Given Diltiazem HCl (Cardizem) 30 mg PO Q6H [facility] Last Admin: 06/15/17 05:03 Dose: 30 mg Dorzolamide HCl (Trusopt) 10 ml OU TID [facility] Last Admin: 06/15/17 09:35 Dose: 1 drop Epoetin Ken (Procrit) 10,000 unit IV MWF [facility] Last Admin: 06/15/17 09:38 Dose: Not Given Ferric Sodium Gluconate Complex (Ferrlecit) 125 mg IVPB DAILY [facility] Stop: 06/20/17 14:31 Last Admin: 06/15/17 09:31 Dose: 125 mg Montelukast Sodium (Singulair) 10 mg PO DAILY [facility] Last Admin: 06/15/17 10:41 Dose: 10 mg Morphine Sulfate (Morphine) 1 mg IVP Q4 PRN PRN Reason: Pain, moderate (4-7) Last Admin: 06/13/17 21:55 Dose: 1 mg Multivitamins (Hexavitamin) 1 tab PO DAILY [facility] Last Admin: 06/15/17 10:41 Dose: 1 tab Pantoprazole Sodium (Protonix Inj) 40 mg IVP DAILY [facility] Last Admin: 06/15/17 09:30 Dose: 40 mg - Labs Labs: 10/01/17 08:21 06/14/17 08:27 PT 14.3 SECONDS (9.7-12.2) H 06/09/17 06:24 INR 1.3 06/09/17 06:24 APTT 27 SECONDS (21-34) 06/09/17 06:24 - Constitutional Appears: No Acute Distress, Chronically Ill - Head Exam Head Exam: ATRAUMATIC, NORMAL INSPECTION - Eye Exam Eye Exam: EOMI, Normal appearance - Neck Exam Neck Exam: Normal Inspection. absent: Tenderness - Respiratory Exam Respiratory Exam: Clear to Ausculation Bilateral, NORMAL BREATHING PATTERN - Cardiovascular Exam Cardiovascular Exam: Irregular Rhythm, +S1 - GI/Abdominal Exam GI & Abdominal Exam: Soft. absent: Tenderness - Extremities Exam Extremities Exam: Normal Inspection. absent: Tenderness - Neurological Exam Neurological Exam: Alert, Motor Sensory Deficit - Skin Skin Exam: Dry, Warm Assessment and Plan (1) Acute respiratory failure Status: Acute (2) Chronic a-fib Status: Acute (3) Dementia Status: Acute (4) CEZAR (acute kidney injury) Status: Acute (5) Acute respiratory failure with hypoxia and hypercapnia Status: Acute (6) History of hypertension Status: Acute (7) ESRD (end stage renal disease) Status: Acute - Assessment and Plan (Free Text) Plan: AV access Dialysis today and MWF will needoutpt placement for HD
--- NOTE | 2017-06-15 13:55 | PCM.SURG1 ---
Surgeon's Initial Post Op Note - Surgeon's Notes Surgeon: Dr. Tristan Abalone Fisherman: Dr. Marx PGY-3, Piedad OMS-III Type of Anesthesia: IV Sedation, Local Pre-Operative Diagnosis: Renal failure requiring dialysis Operative Findings: Palpable radial pulse Post-Operative Diagnosis: Renal failure requiring dialysis Operation Performed: Right AV fistula creation Specimen/Specimens Removed: none Estimated Blood Loss: EBL {In ML}: 25 Blood Products Given: N/A Drains Used: No Drains Post-Op Condition: Fair Date of Surgery/Procedure: 06/15/17 Time of Surgery/Procedure: 13:55
--- NOTE | 2017-06-15 17:59 | CP.PCM.PN ---
<Chaitanya Sharma - Last Filed: 06/16/17 05:26> Subjective - Date & Time of Evaluation Date of Evaluation: 06/15/17 Time of Evaluation: 07:30 - Subjective Subjective: PGY1 Medicine Note for Dr. Puri Patient seen and examined at bedside this morning. Patient is still having difficulty speaking due to a sore throat from prior intubation/extubations. She is scheduled for AV fistula later this afternoon. Patient is able to shake her head yes and no to answer questions. Denies f/c, n/v/d, sob, cp, abd pain or headaches. Objective - Vital Signs/Intake and Output Vital Signs (last 24 hours): Temp Pulse Resp BP Pulse Ox 98.1 F 99 H 20 101/59 L 97 06/15/17 17:20 06/15/17 17:20 06/15/17 17:20 06/15/17 17:40 06/15/17 15:00 Intake and Output: 06/15/17 06/15/17 06:59 18:59 Intake Total 200 Output Total 30 80 Balance 170 -80 - Medications Medications: Current Medications Calcium Acetate (Phoslo) 667 mg PO T[facility]CC [facility] Last Admin: 06/15/17 12:00 Dose: Not Given Diltiazem HCl (Cardizem) 30 mg PO Q6H [facility] Last Admin: 06/15/17 12:00 Dose: Not Given Dorzolamide HCl (Trusopt) 10 ml OU TID [facility] Last Admin: 06/15/17 14:00 Dose: Not Given Epoetin Ken (Procrit) 10,000 unit IV MWF [facility] Last Admin: 06/15/17 17:39 Dose: 10,000 unit Ferric Sodium Gluconate Complex (Ferrlecit) 125 mg IVPB DAILY [facility] Stop: 06/20/17 14:31 Last Admin: 06/15/17 09:31 Dose: 125 mg Montelukast Sodium (Singulair) 10 mg PO DAILY [facility] Last Admin: 06/15/17 10:41 Dose: 10 mg Morphine Sulfate (Morphine) 2 mg IVP Q4 PRN PRN Reason: Pain, moderate (4-7) Multivitamins (Hexavitamin) 1 tab PO DAILY [facility] Last Admin: 06/15/17 10:41 Dose: 1 tab Ondansetron HCl (Zofran Inj) 4 mg IVP Q6H PRN PRN Reason: Nausea/Vomiting Pantoprazole Sodium (Protonix Inj) 40 mg IVP DAILY [facility] Last Admin: 06/15/17 09:30 Dose: 40 mg - Labs Labs: 06/14/17 08:21 06/14/17 08:27 PT 14.3 SECONDS (9.7-12.2) H 06/09/17 06:24 INR 1.3 06/09/17 06:24 APTT 27 SECONDS (21-34) 06/09/17 06:24 - Constitutional Appears: Non-toxic, No Acute Distress - Head Exam Head Exam: ATRAUMATIC, NORMOCEPHALIC - Eye Exam Eye Exam: EOMI, Normal appearance - ENT Exam ENT Exam: Mucous Membranes Moist - Respiratory Exam Respiratory Exam: Rales (scattered throughout). absent: Accessory Muscle Use, Rhonchi, Wheezes, Respiratory Distress - Cardiovascular Exam Cardiovascular Exam: REGULAR RHYTHM, +S1, +S2 - GI/Abdominal Exam GI & Abdominal Exam: Soft, Normal Bowel Sounds. absent: Distended, Firm, Guarding, Rigid, Tenderness - Extremities Exam Additional comments: Scattered ecchymosis of different stages of healing throughout body, right arm is completely covered in ecchymosis. - Back Exam Back Exam: absent: CVA tenderness (L) - Neurological Exam Neurological Exam: Alert, Awake - Psychiatric Exam Psychiatric exam: Normal Affect, Normal Mood - Skin Skin Exam: Dry, Warm. absent: Normal Color (scattered ecchymosis of different stages of healing throughout the patient's body. sacral ulcer above right buttocks.) Assessment and Plan - Assessment and Plan (Free Text) Assessment: CEZAR (acute kidney injury) Nephrology Consult, Dr. Anderson Patient developed acute renal failure Patient is currently on hemodialysis - MWF * Dr. Tristan consulted for Perma Cath placement;placed; patient received dialysis on 06/13 Renal US 06/11/17 - limited study due to patient's body habitus. No calculus or hydronephrosis identified b/l. Probable right renal cortical cyst measures approximately 0.7 x 0.4 x 0.8 cm Patient is scheduled for AVF later this afternoon;Over the weekend, the entire family was at bedside for a conversation about how patient needs AVF done as soon as possible as the AVF needs months to become viable; patients family agreed to have procedure done as it is necessary Pneumonia; resolved Patient was treated with Zosyn. Completeled treatment and is currently off all antibiotics now. Acute respiratory failure with hypoxia and hypercapnia; resolved Patient was intubated and extubated twice. Now patient is monitored on oxygen by nasal cannula. Respiratory status stable. Continue to monitor. COPD exacerbation; resolved Pulmonology Consult, Dr. Camejo Continue nebulizing treatment. s/p extubation twice Atrial fibrillation, new onset Rate controlled - Diltiazem 30mg PO Q6H Not on anticoagulation because of anemia and ecchymosis patient will need cardiology f/u on discharge On Ferrlecit for Anemia CHF (congestive heart failure); diastolic dysfunction with preserved EF CXR 06/09 : stable cardiomegaly, small bilateral pleural effusions noted EF 57.8% Cont to monitor on Lasix PRN Elevated WBCs Infectious Disease consulted, Dr. Ospina 10.6 on 06/15; 12.3 on 06/13; no fevers/complaints off of all antibiotics Abnormal RBCs Hematology Oncology consulted, Dr. Mills HTN -c/w diltiazem Breast Rash - Resolved Nystatin topical powder discontinued - completed treatment - 14 days total Sacral Decubitus Ulcer - stage 2 Located on the right upper buttocks Started on Aloe [place] lotion TID Turn pt every 2 hours Prophylactic measure Heparin SC 5000 Q12 restarted yesterday Protonix 40 mg IV daily Case discussed with Dr. Khushi Sharma PGY1 <Rich Puri - Last Filed: 06/16/17 07:38> Objective - Vital Signs/Intake and Output Vital Signs (last 24 hours): Temp Pulse Resp BP Pulse Ox 98.1 F 102 H 20 112/68 97 06/15/17 23:28 06/16/17 06:10 06/15/17 23:28 06/16/17 06:10 06/15/17 23:28 Intake and Output: 06/16/17 06/16/17 06:59 18:59 Intake Total 150 Output Total 60 Balance 90 - Medications Medications: Current Medications Calcium Acetate (Phoslo) 667 mg PO [facility]CC [facility] Last Admin: 06/15/17 18:00 Dose: Not Given Diltiazem HCl (Cardizem) 30 mg PO Q6H [facility] Last Admin: 06/16/17 06:11 Dose: 30 mg Dorzolamide HCl (Trusopt) 10 ml OU TID [facility] Last Admin: 06/15/17 18:00 Dose: Not Given Epoetin Ken (Procrit) 10,000 unit IV MWF [facility] Last Admin: 06/15/17 17:39 Dose: 10,000 unit Ferric Sodium Gluconate Complex (Ferrlecit) 125 mg IVPB DAILY [facility] Stop: 06/20/17 14:31 Last Admin: 06/15/17 09:31 Dose: 125 mg Montelukast Sodium (Singulair) 10 mg PO DAILY [facility] Last Admin: 06/15/17 10:41 Dose: 10 mg Morphine Sulfate (Morphine) 2 mg IVP Q4 PRN PRN Reason: Pain, moderate (4-7) Multivitamins (Hexavitamin) 1 tab PO DAILY [facility] Last Admin: 06/15/17 10:41 Dose: 1 tab Ondansetron HCl (Zofran Inj) 4 mg IVP Q6H PRN PRN Reason: Nausea/Vomiting Pantoprazole Sodium (Protonix Inj) 40 mg IVP DAILY [facility] Last Admin: 06/15/17 09:30 Dose: 40 mg - Labs Labs: 06/14/17 08:21 06/14/17 08:27 PT 14.3 SECONDS (9.7-12.2) H 06/09/17 06:24 INR 1.3 06/09/17 06:24 APTT 27 SECONDS (21-34) 06/09/17 06:24 Attending/Attestation - Attestation I have personally seen and examined this patient.: Yes I have fully participated in the care of the patient.: Yes I have reviewed all pertinent clinical information, including history, physical exam and plan: Yes Notes (Text): Medical Attending: Patient was seen and examined by me. Agree with the above note by the resident. Unfourtunately ever since last week her urine outputs have remained very low. She is still getting HD via the permacath that she has. Today will be undergoing AVF. thank you Rich Puri
--- NOTE | 2017-06-15 19:22 | OP ---
PROCEDURE DATE: 06/15/2017 PREOPERATIVE DIAGNOSIS: Renal failure. PROCEDURE CARRIED OUT: Brachio-brachial fistula, right elbow. SURGEON: Palmer Tristan Jr., MD TRUCKSMITH: Dr. Marx. TYPE OF ANESTHESIA: Local with sedation. ANESTHESIA ADMINISTERED BY: Dr. Gale. INDICATIONS: The patient is an elderly woman with multiple medical problems, recently started on dialysis, left jugular catheter. OPERATIVE FINDINGS: No vessels could be located in the left arm due to the amount of edema, subcutaneous tissue, swelling, etc. On the right side, we could not identify a basilic vein or a cephalic vein, so we carried out a brachio-brachial fistula. PROCEDURE: The patient was given local anesthesia as well as intravenous antibiotics and systemic sedation. An incision was made after marking it with a vein with vein mapping. The brachial artery and the adjacent brachial vein. A [id number] fistula with ligation of the distal portion was carried out using a loop magnification and heparin anticoagulation. At the end of the procedure, there was good flow to the fistula. There is a palpable pulse in the wrist. Blood loss of the procedure was less than 25 mL. Operation carried out, brachio-brachial fistula, left arm. Palmer Tristan Jr., MD
[2017-06-16 07:45] LABS: POTASSIUM 5.4 mmol/L (3.6-5.2)
[2017-06-16 07:47] LABS: ALB/GLOB RATIO 1.1 (1.0-2.1); BILIRUBIN,TOTAL 1.7 mg/dL (0.2-1.3); TOTAL PROTEIN 7.2 g/dL (6.3-8.3)
[2017-06-16 07:48] LABS: CALCIUM 9.2 mg/dl (8.6-10.4)
--- NOTE | 2017-06-16 08:27 | CP.PCM.PN ---
Subjective - Date & Time of Evaluation Date of Evaluation: 06/16/17 Time of Evaluation: 08:27 - Subjective Subjective: bruit present but weak Objective - Vital Signs/Intake and Output Vital Signs (last 24 hours): Temp Pulse Resp BP Pulse Ox 98.1 F 102 H 20 112/68 97 06/15/17 23:28 06/16/17 06:10 06/15/17 23:28 06/16/17 06:10 06/15/17 23:28 Intake and Output: 06/16/17 06/16/17 06:59 18:59 Intake Total 150 Output Total 60 Balance 90 - Medications Medications: Current Medications Calcium Acetate (Phoslo) 667 mg PO TIDCC [facility] Last Admin: 06/15/17 18:00 Dose: Not Given Diltiazem HCl (Cardizem) 30 mg PO Q6H [facility] Last Admin: 06/16/17 06:11 Dose: 30 mg Dorzolamide HCl (Trusopt) 10 ml OU TID [facility] Last Admin: 06/15/17 18:00 Dose: Not Given Epoetin Ken (Procrit) 10,000 unit IV MWF [facility] Last Admin: 06/15/17 17:39 Dose: 10,000 unit Ferric Sodium Gluconate Complex (Ferrlecit) 125 mg IVPB DAILY [facility] Stop: 06/20/17 14:31 Last Admin: 06/15/17 09:31 Dose: 125 mg Montelukast Sodium (Singulair) 10 mg PO DAILY [facility] Last Admin: 06/15/17 10:41 Dose: 10 mg Morphine Sulfate (Morphine) 2 mg IVP Q4 PRN PRN Reason: Pain, moderate (4-7) Multivitamins (Hexavitamin) 1 tab PO DAILY [facility] Last Admin: 06/15/17 10:41 Dose: 1 tab Ondansetron HCl (Zofran Inj) 4 mg IVP Q6H PRN PRN Reason: Nausea/Vomiting Pantoprazole Sodium (Protonix Inj) 40 mg IVP DAILY [facility] Last Admin: 06/15/17 09:30 Dose: 40 mg - Labs Labs: 06/14/17 08:21 06/14/17 08:27 PT 14.3 SECONDS (9.7-12.2) H 06/09/17 06:24 INR 1.3 06/09/17 06:24 APTT 27 SECONDS (21-34) 06/09/17 06:24
--- NOTE | 2017-06-16 09:34 | CP.PCM.PN ---
<Chaitanya Sharma - Last Filed: 06/16/17 14:36> Subjective - Date & Time of Evaluation Date of Evaluation: 06/16/17 Time of Evaluation: 09:31 - Subjective Subjective: PGY1 Medicine Note for Dr. Puri Patient seen and examined at bedside this morning. Patient is s/p AVF in her right arm. Patient is still not speaking but nods her head yes and no to questions. She motions that she is experiencing a small amount of pain in her right arm. Otherwise, patient is resting comfortably in her bed throughout exam. Patient denies f/c, n/v/d, sob, cp, abd pain. Objective - Vital Signs/Intake and Output Vital Signs (last 24 hours): Temp Pulse Resp BP Pulse Ox 97.6 F 100 H 18 119/71 100 06/16/17 08:05 06/16/17 08:34 06/16/17 08:05 06/16/17 08:34 06/16/17 08:05 Intake and Output: 06/16/17 06/16/17 06:59 18:59 Intake Total 150 Output Total 60 Balance 90 - Medications Medications: Current Medications Calcium Acetate (Phoslo) 667 mg PO TIDCC [facility] Last Admin: 06/16/17 08:30 Dose: 667 mg Diltiazem HCl (Cardizem) 30 mg PO Q6H [facility] Last Admin: 06/16/17 06:11 Dose: 30 mg Dorzolamide HCl (Trusopt) 10 ml OU TID [facility] Last Admin: 06/15/17 18:00 Dose: Not Given Epoetin Ken (Procrit) 10,000 unit IV MWF [facility] Last Admin: 06/15/17 17:39 Dose: 10,000 unit Ferric Sodium Gluconate Complex (Ferrlecit) 125 mg IVPB DAILY [facility] Stop: 06/20/17 14:31 Last Admin: 06/15/17 09:31 Dose: 125 mg Montelukast Sodium (Singulair) 10 mg PO DAILY [facility] Last Admin: 06/15/17 10:41 Dose: 10 mg Morphine Sulfate (Morphine) 2 mg IVP Q4 PRN PRN Reason: Pain, moderate (4-7) Multivitamins (Hexavitamin) 1 tab PO DAILY [facility] Last Admin: 06/15/17 10:41 Dose: 1 tab Ondansetron HCl (Zofran Inj) 4 mg IVP Q6H PRN PRN Reason: Nausea/Vomiting Pantoprazole Sodium (Protonix Inj) 40 mg IVP DAILY [facility] Last Admin: 06/15/17 09:30 Dose: 40 mg - Labs Labs: 06/14/17 08:21 06/16/17 06:23 PT 14.3 SECONDS (9.7-12.2) H 06/09/17 06:24 INR 1.3 06/09/17 06:24 APTT 27 SECONDS (21-34) 06/09/17 06:24 - Constitutional Appears: No Acute Distress, Chronically Ill - Head Exam Head Exam: ATRAUMATIC, NORMOCEPHALIC - Eye Exam Eye Exam: EOMI, Normal appearance - ENT Exam ENT Exam: Mucous Membranes Moist - Respiratory Exam Respiratory Exam: Rales (scattered ), NORMAL BREATHING PATTERN. absent: Accessory Muscle Use, Wheezes, Respiratory Distress - Cardiovascular Exam Cardiovascular Exam: Irregular Rhythm (afib on tele), +S1, +S2 - GI/Abdominal Exam GI & Abdominal Exam: Soft, Normal Bowel Sounds. absent: Distended, Firm, Guarding, Rigid, Tenderness - Extremities Exam Extremities Exam: absent: Calf Tenderness, Pedal Edema Additional comments: Bruit present but weak in right arm. Scattered ecchymosis of different stages of healing throughout body, right arm is completely covered in ecchymosis.. SCDs and Pressure ulcer boots in place. - Neurological Exam Neurological Exam: Alert, Awake Additional comments: not speaking due to sore throat 2/2 recent intubation and extubation x 2 - Psychiatric Exam Psychiatric exam: Normal Affect, Normal Mood - Skin Skin Exam: Dry, Warm. absent: Normal Color (scattered ecchymosis of different stages of healing throughout the patient's body. sacral ulcer above right buttocks) Assessment and Plan - Assessment and Plan (Free Text) Assessment: CEZAR (acute kidney injury) --> CKD Nephrology Consult, Dr. Anderson Patient developed acute renal failure Patient is currently on hemodialysis - MWF * Dr. Tristan consulted for Perma Cath placement;placed; patient received dialysis on 06/13 Renal US 06/11/17 - limited study due to patient's body habitus. No calculus or hydronephrosis identified b/l. Probable right renal cortical cyst measures approximately 0.7 x 0.4 x 0.8 cm Successful AVF on 06/15/17 - POD 1 - bruit is present in right arm, but is weak. patient will need dialysis placement. Currently on HD MWF Pneumonia; resolved Patient was treated with Zosyn. Completeled treatment and is currently off all antibiotics now. Acute respiratory failure with hypoxia and hypercapnia; resolved Patient was intubated and extubated twice. Now patient is monitored on oxygen by nasal cannula. Respiratory status stable. Continue to monitor. COPD exacerbation; resolved Pulmonology Consult, Dr. Camejo Continue nebulizing treatment. s/p extubation twice Atrial fibrillation, new onset Rate controlled - Diltiazem 30mg PO Q6H Not on anticoagulation because of anemia and ecchymosis patient will need cardiology f/u on discharge On Ferrous Sulfate 325mg PO daily for Anemia CHF (congestive heart failure); diastolic dysfunction with preserved EF CXR 06/09 : stable cardiomegaly, small bilateral pleural effusions noted EF 57.8% Cont to monitor on Lasix PRN Elevated WBCs Infectious Disease consulted, Dr. Ospina 10.6 on 06/14; 12.3 on 06/13; no fevers/complaints off of all antibiotics Abnormal RBCs Hematology Oncology consulted, Dr. Mills HTN Diltiazem 30mg PO Q6H Breast Rash - Resolved Nystatin topical powder discontinued - completed treatment - 14 days total Sacral Decubitus Ulcer - stage 2 Located on the right upper buttocks Started on Aloe [place] lotion TID Turn pt every 2 hours Prophylactic measure Heparin SC 5000 Q12 Protonix 40 mg PO daily Triple lumen central line, located in the right IJ, no longer functioning properly, unable to draw back blood. All medications have been switched over PO. Triple lumen removed. Currently awaiting placement for dialysis and rehab. Case discussed with Dr. Khushi Sharma PGY1 <Rich Puri H - Last Filed: 06/16/17 14:57> Objective - Vital Signs/Intake and Output Vital Signs (last 24 hours): Temp Pulse Resp BP Pulse Ox 97.6 F 100 H 18 119/71 100 06/16/17 08:05 06/16/17 08:34 06/16/17 08:05 06/16/17 08:34 06/16/17 08:05 Intake and Output: 06/16/17 06/16/17 06:59 18:59 Intake Total 150 Output Total 60 Balance 90 - Medications Medications: Current Medications Calcium Acetate (Phoslo) 667 mg PO TIDCC [facility] Last Admin: 06/16/17 11:46 Dose: 667 mg Diltiazem HCl (Cardizem) 30 mg PO Q6H [facility] Last Admin: 06/16/17 11:47 Dose: 30 mg Dorzolamide HCl (Trusopt) 10 ml OU TID [facility] Last Admin: 06/16/17 13:56 Dose: 1 drop Epoetin Ken (Procrit) 10,000 unit IV MWF [facility] Last Admin: 06/15/17 17:39 Dose: 10,000 unit Ferrous Sulfate (Feosol) 325 mg PO DAILY [facility] Montelukast Sodium (Singulair) 10 mg PO DAILY [facility] Last Admin: 06/16/17 11:00 Dose: 10 mg Multivitamins (Hexavitamin) 1 tab PO DAILY [facility] Last Admin: 06/16/17 11:00 Dose: 1 tab Ondansetron HCl (Zofran Inj) 4 mg IVP Q6H PRN PRN Reason: Nausea/Vomiting Last Admin: 06/16/17 10:17 Dose: 4 mg Oxycodone/Acetaminophen (Percocet 5/325 Mg Tab) 1 tab PO Q6H PRN PRN Reason: Pain, moderate (4-7) Stop: 06/19/17 12:01 Pantoprazole Sodium (Protonix Ec Tab) 40 mg PO DAILY [facility] - Labs Labs: 06/14/17 08:21 06/16/17 06:23 PT 14.3 SECONDS (9.7-12.2) H 06/09/17 06:24 INR 1.3 06/09/17 06:24 APTT 27 SECONDS (21-34) 06/09/17 06:24 Assessment and Plan - Assessment and Plan (Free Text) Plan: Medical attending: Patient was seen and examined by me, agrees the above note by chief medical physicist. The patient is postop day #1 of recreation of aVF on the right upper extremity. In the meantime she continues to get hemodialysis for through the permacath that she has Her urine output remains very a very low. As mentioned previously she does have history of atrial fibrillation and was on anticoagulation with Lovenox however while in the intensive care unit she developed a lot of bleeding and anemia. On exam she has a lot of ecchymosis on her body she required multiple blood transfusions and since then has done well. However because of the heavy bleeding in the intensive care unit she is not on anything such as oral anticoagulation. She is only getting aspirin at this time. Her other goal is to continue to rate control the atrial fibrillation Thank you very much, at this point were waiting on outpatient hemodialysis placement and/or subacute rehabilitation thank you Rich Puri
--- NOTE | 2017-06-16 10:58 | CP.PCM.PN ---
Subjective - Date & Time of Evaluation Date of Evaluation: 06/16/17 Time of Evaluation: 10:58 - Subjective Subjective: s/p avf hd yesterday seen and examined pt is nonverbal, confused. unable to obtain ros Objective - Vital Signs/Intake and Output Vital Signs (last 24 hours): Temp Pulse Resp BP Pulse Ox 97.6 F 100 H 18 119/71 100 06/16/17 08:05 06/16/17 08:34 06/16/17 08:05 06/16/17 08:34 06/16/17 08:05 Intake and Output: 06/16/17 06/16/17 06:59 18:59 Intake Total 150 Output Total 60 Balance 90 - Medications Medications: Current Medications Calcium Acetate (Phoslo) 667 mg PO TIDCC [facility] Last Admin: 06/16/17 08:30 Dose: 667 mg Diltiazem HCl (Cardizem) 30 mg PO Q6H [facility] Last Admin: 06/16/17 06:11 Dose: 30 mg Dorzolamide HCl (Trusopt) 10 ml OU TID [facility] Last Admin: 06/15/17 18:00 Dose: Not Given Epoetin Ken (Procrit) 10,000 unit IV MWF [facility] Last Admin: 06/15/17 17:39 Dose: 10,000 unit Ferric Sodium Gluconate Complex (Ferrlecit) 125 mg IVPB DAILY [facility] Stop: 06/20/17 14:31 Last Admin: 06/15/17 09:31 Dose: 125 mg Montelukast Sodium (Singulair) 10 mg PO DAILY [facility] Last Admin: 06/15/17 10:41 Dose: 10 mg Morphine Sulfate (Morphine) 2 mg IVP Q4 PRN PRN Reason: Pain, moderate (4-7) Multivitamins (Hexavitamin) 1 tab PO DAILY [facility] Last Admin: 06/15/17 10:41 Dose: 1 tab Ondansetron HCl (Zofran Inj) 4 mg IVP Q6H PRN PRN Reason: Nausea/Vomiting Last Admin: 06/16/17 10:17 Dose: 4 mg Pantoprazole Sodium (Protonix Inj) 40 mg IVP DAILY [facility] Last Admin: 06/15/17 09:30 Dose: 40 mg - Labs Labs: 06/14/17 08:21 06/16/17 06:23 PT 14.3 SECONDS (9.7-12.2) H 06/09/17 06:24 INR 1.3 06/09/17 06:24 APTT 27 SECONDS (21-34) 06/09/17 06:24 - Constitutional Appears: No Acute Distress, Confused, Chronically Ill - Head Exam Head Exam: NORMAL INSPECTION - Eye Exam Eye Exam: Normal appearance - ENT Exam ENT Exam: Mucous Membranes Moist, Normal Exam - Neck Exam Neck Exam: Normal Inspection - Respiratory Exam Respiratory Exam: Decreased Breath Sounds, NORMAL BREATHING PATTERN - Cardiovascular Exam Cardiovascular Exam: REGULAR RHYTHM, RRR Additional comments: rt arm nicol, poor thrill - GI/Abdominal Exam GI & Abdominal Exam: Distended, Soft - Extremities Exam Extremities Exam: Normal Inspection, Pedal Edema Assessment and Plan (1) CEZAR (acute kidney injury) Status: Acute (2) Acute respiratory failure Status: Acute (3) Atrial fibrillation, new onset Status: Acute (4) COPD exacerbation Status: Acute (5) Change in mental state Status: Acute (6) Elevated WBCs Status: Acute - Assessment and Plan (Free Text) Assessment: maintain hd [facility] outpt hd placement
[2017-06-16] MEDS: Dorzolamide 2% Opht Sol 10ml OU SCH ×3 (11:00→18:23)
[2017-06-16] MEDS: Multiple Vitamins Tab PO SCH (11:00)
[2017-06-16] MEDS: Ferric Sodium Gluconat Complex 62.5 mg/5 ml Vial IVPB SCH (11:00)
[2017-06-16] MEDS ORDERED: Oxycodone/Acetaminophen 5/325 mg Tab PO PRN (12:00)
--- NOTE | 2017-06-16 15:41 | VASCLAB ---
PROCEDURE: Bilateral Upper Extremity Venous Mapping HISTORY: ESRD, Pre-op AV Fistula PRIORS: None. TECHNIQUE: Bilateral upper extremity, internal jugular, subclavian, axillary, brachial, ulnar, radial, basilic and upper cephalic veins were evaluated. Flow was assessed with color Doppler, compressibility, assessment of phasic flow and augmentation response. Report prepared by PASTOR Condon FINDINGS: RIGHT: 1. Internal Jugular Vein: Unable to examine due to lines in area. 2. Subclavian Vein:Compressibility - Fully compressible: Thrombus - None : Flow - Phasic 3. Axillary Vein: Compressibility - Fully compressible: Thrombus - None 4. Brachial Vein: Compressibility - Fully compressible: Thrombus - None 5. Ulnar Vein:Compressibility - Fully compressible: Thrombus - None 6. Radial Vein:Compressibility - Fully compressible: Thrombus - None 7. Cephalic Vein: Compressibility - Fully compressible: thrombus - None 7.1. Upper Arm: Proximal Diameter: 0.25cm. Mid Diameter: 0.18cm. Distal Diameter: n/a 7.2. Forearm: Unable to image due to diminished size 8. Basilic Vein:Compressibility - Fully compressible: thrombus - None 8.1. Upper Arm:Proximal Diameter: 0.19cm. Mid Diameter: 0.15cm. Distal Diameter: 0.13cm 8.2. Forearm: Proximal Diameter: 0.20cm. Mid Diameter:0.21cm. Distal Diameter: 0.14cm. LEFT: 1. Internal Jugular Vein: Compressibility - Fully compressible: Thrombus - None : Flow - Phasic 2. Subclavian Vein: Unable to examine due to lines in area. 3. Axillary Vein: Compressibility - Fully compressible: Thrombus - None 4. Brachial Vein: Compressibility - Fully compressible: Thrombus - None 5. Ulnar Vein:Compressibility - Fully compressible: Thrombus - None 6. Radial Vein:Compressibility - Fully compressible: Thrombus - None 7. Cephalic Vein: Compressibility - Fully compressible: thrombus - None 7.1. Upper Arm: Proximal Diameter: 0.19cm. Mid Diameter: 0.25cm. Distal Diameter: 0.13cm. 7.2. Forearm: Unable to image due to diminished size 8. Basilic Vein: Not visualized. OTHER FINDINGS: IMPRESSION: Right: Diameter measurements of the right cephalic vein is measured between 0.18 cm and 0.25, at the upper arm. The right basilic vein is measured between 0.13 cm and 0.21 cm. Left: Diameter measurements of the left cephalic vein is measured between 0.13 cm and 0.25 cm, at the upper arm. The left basilic vein is not visualized.
--- NOTE | 2017-06-16 23:46 | CP.PCM.PN ---
Subjective - Date & Time of Evaluation Date of Evaluation: 06/16/17 Time of Evaluation: 07:05 - Subjective Subjective: Patient seen and evaluated Comfortable Physical Examination - Constitutional Appears: Non-toxic, No Acute Distress - Head Exam Head Exam: ATRAUMATIC, NORMOCEPHALIC - Eye Exam Eye Exam: EOMI, Normal appearance. absent: Scleral icterus - ENT Exam ENT Exam: Mucous Membranes Moist - Respiratory Exam Respiratory Exam: Rales (through lungs b/l), NORMAL BREATHING PATTERN. absent: Accessory Muscle Use - Cardiovascular Exam Cardiovascular Exam: REGULAR RHYTHM, +S1, +S2 - GI/Abdominal Exam GI & Abdominal Exam: Soft, Normal Bowel Sounds. absent: Distended, Firm, Guarding, Rigid, Tenderness - Extremities Exam Extremities Exam: Pedal Edema. absent: Calf Tenderness Additional comments: 2+ pitting edema b/l - Neurological Exam Neurological Exam: Alert, Awake - Skin Skin Exam: Dry, Warm Additional comments: ecchymosis of different stages of healing throughout the patient's body, most obviously on her entire right arm, upper portion of her left arm and her abdomen. sacral ulcer above right buttocks. Objective - Vital Signs/Intake and Output Vital Signs (last 24 hours): Temp Pulse Resp BP Pulse Ox 98 F 89 20 92/57 L 96 06/16/17 15:00 06/16/17 18:28 06/16/17 15:00 06/16/17 18:28 06/16/17 15:00 Intake and Output: 06/16/17 06/17/17 18:59 06:59 Intake Total 100 Output Total 30 Balance 70 - Medications Medications: Current Medications Calcium Acetate (Phoslo) 667 mg PO TIDCC [facility] Last Admin: 06/16/17 18:23 Dose: 667 mg Diltiazem HCl (Cardizem) 30 mg PO Q6H [facility] Last Admin: 06/16/17 18:23 Dose: Not Given Dorzolamide HCl (Trusopt) 10 ml OU TID [facility] Last Admin: 06/16/17 18:23 Dose: 1 drop Epoetin Ken (Procrit) 10,000 unit IV MWF [facility] Last Admin: 06/15/17 17:39 Dose: 10,000 unit Ferrous Sulfate (Feosol) 325 mg PO DAILY [facility] Montelukast Sodium (Singulair) 10 mg PO DAILY [facility] Last Admin: 06/16/17 11:00 Dose: 10 mg Multivitamins (Hexavitamin) 1 tab PO DAILY [facility] Last Admin: 06/16/17 11:00 Dose: 1 tab Ondansetron HCl (Zofran Inj) 4 mg IVP Q6H PRN PRN Reason: Nausea/Vomiting Last Admin: 06/16/17 10:17 Dose: 4 mg Oxycodone/Acetaminophen (Percocet 5/325 Mg Tab) 1 tab PO Q6H PRN PRN Reason: Pain, moderate (4-7) Stop: 06/19/17 12:01 Pantoprazole Sodium (Protonix Ec Tab) 40 mg PO DAILY [facility] - Labs Labs: 06/14/17 08:21 06/16/17 06:23 PT 14.3 SECONDS (9.7-12.2) H 06/09/17 06:24 INR 1.3 06/09/17 06:24 APTT 27 SECONDS (21-34) 06/09/17 06:24 Assessment and Plan - Assessment and Plan (Free Text) Assessment: Atrial fibrillation, new onset Assessment & Plan: Rate controlled on Diltiazem 30 mg Q6H CHADs Score of 5- Patient off Lovenox due to anemia and ecchymosis. Will need to determine anticoagulation measures. At this time, on DVT prophylaxis solely. On Ferrlecit for Anemia Status: Acute CHF (congestive heart failure) Assessment & Plan: CXR 06/09 : stable cardiomegaly, small bilateral pleural effusions noted EF 57.8% Cont to monitor on Lasix PRN Status: Acute ESRD on HD MWF Assessment & Plan: Patient due for AVF today Status: Chronic Elevated troponin Assessment & Plan: On admission elevated; likely secondary to then CHF exacerbation Cont to monitor Status: Acute Prophylactic measure Assessment & Plan: Heparin SC 5000 Q12 Protonix 40 mg IV daily Status: Acute
[2017-06-17 10:38] LABS: BASO # 0.1 K/uL (0.0-0.2); BASO % 0.9 % (0.0-2.0); EOS % 0.2 % (0.0-4.0); LYMPH # 1.5 K/uL (1.0-4.3); LYMPH % 16.2 % (20.0-40.0); MEAN CORPUSCULAR HEMOGLOBIN 31.5 pg (27.0-31.0); MEAN CORPUSCULAR HGB CONC 31.9 g/dL (33.0-37.0); MEAN PLATELET VOLUME 8.1 fL (7.2-11.7); MONO # 0.9 K/uL (0.0-0.8); MONO % 9.6 % (0.0-10.0); NRBC % 2.1 % (0.0-2.0); RED CELL DISTRIBUTION WIDTH 26.9 % (11.5-14.5); WHITE BLOOD COUNT 9.2 K/uL (4.8-10.8)
[2017-06-17 10:39] LABS: MEAN CELL VOLUME 98.3 fL (81.0-99.0)
[2017-06-17 10:47] LABS: POTASSIUM 5.3 mmol/L (3.6-5.2)
[2017-06-17 10:49] LABS: BILIRUBIN,TOTAL 1.5 mg/dL (0.2-1.3)
[2017-06-17 10:50] LABS: ALB/GLOB RATIO 0.9 (1.0-2.1); TOTAL PROTEIN 7.4 g/dL (6.3-8.3)
[2017-06-17 10:51] LABS: CALCIUM 9.1 mg/dl (8.6-10.4)
[2017-06-17] MEDS: Multiple Vitamins Tab PO SCH (10:52)
[2017-06-17] MEDS: Pantoprazole 40 mg EC Tab PO SCH (10:53)
[2017-06-17] MEDS: Dorzolamide 2% Opht Sol 10ml OU SCH ×3 (10:53→18:37)
[2017-06-17] MEDS: Epoetin Alfa 10,000 unit/ml Dialysis IV SCH (12:26)
--- NOTE | 2017-06-17 13:56 | CP.PCM.PN ---
Subjective - Date & Time of Evaluation Date of Evaluation: 06/17/17 Time of Evaluation: 13:53 - Subjective Subjective: seen at dialysis- BP low and UF goal reduced Poor flows via permcath- surgery notified as TPA unsuccessful x 2 Nonverbal; appears weak No bruit appreciated in right AV access Trying to finish HD as K has been elevated Objective - Vital Signs/Intake and Output Vital Signs (last 24 hours): Temp Pulse Resp BP Pulse Ox 97.4 F L 102 H 22 77/45 L 95 06/17/17 11:10 06/17/17 11:10 06/17/17 11:10 06/17/17 12:27 06/17/17 07:56 Intake and Output: 06/17/17 06/17/17 06:59 18:59 Intake Total 100 Output Total 30 Balance 70 - Medications Medications: Current Medications Calcium Acetate (Phoslo) 667 mg PO TIDCC [facility] Last Admin: 06/17/17 07:53 Dose: 667 mg Diltiazem HCl (Cardizem) 30 mg PO Q6H [facility] Last Admin: 06/17/17 05:17 Dose: 30 mg Dorzolamide HCl (Trusopt) 10 ml OU TID [facility] Last Admin: 06/17/17 10:53 Dose: Not Given Epoetin Ken (Procrit) 10,000 unit IV MWF [facility] Last Admin: 06/17/17 12:26 Dose: 10,000 unit Ferrous Sulfate (Feosol) 325 mg PO DAILY [facility] Last Admin: 06/17/17 10:52 Dose: Not Given Montelukast Sodium (Singulair) 10 mg PO DAILY [facility] Last Admin: 06/17/17 10:53 Dose: Not Given Multivitamins (Hexavitamin) 1 tab PO DAILY [facility] Last Admin: 06/17/17 10:52 Dose: Not Given Ondansetron HCl (Zofran Inj) 4 mg IVP Q6H PRN PRN Reason: Nausea/Vomiting Last Admin: 06/16/17 10:17 Dose: 4 mg Oxycodone/Acetaminophen (Percocet 5/325 Mg Tab) 1 tab PO Q6H PRN PRN Reason: Pain, moderate (4-7) Stop: 06/19/17 12:01 Pantoprazole Sodium (Protonix Ec Tab) 40 mg PO DAILY [facility] Last Admin: 06/17/17 10:53 Dose: Not Given - Labs Labs: 06/17/17 10:06 06/17/17 10:06 PT 14.3 SECONDS (9.7-12.2) H 06/09/17 06:24 INR 1.3 06/09/17 06:24 APTT 27 SECONDS (21-34) 06/09/17 06:24 - Constitutional Appears: No Acute Distress, Chronically Ill - Head Exam Head Exam: ATRAUMATIC, NORMAL INSPECTION - Eye Exam Eye Exam: EOMI, Normal appearance - Neck Exam Neck Exam: absent: Tenderness - Respiratory Exam Respiratory Exam: Clear to Ausculation Bilateral, Respiratory Distress - Cardiovascular Exam Cardiovascular Exam: Irregular Rhythm, +S1 - GI/Abdominal Exam GI & Abdominal Exam: Soft. absent: Tenderness - Neurological Exam Neurological Exam: Altered, CN II-XII Intact - Skin Skin Exam: Mottled, Warm Assessment and Plan (1) Acute respiratory failure Status: Acute (2) Chronic a-fib Status: Acute (3) Dementia Status: Acute (4) CEZAR (acute kidney injury) Status: Acute (5) Acute respiratory failure with hypoxia and hypercapnia Status: Acute (6) History of hypertension Status: Acute (7) ESRD (end stage renal disease) Status: Acute - Assessment and Plan (Free Text) Plan: Notify surgery about need for new permcath, monitor Av access Dialysis if possible for fluid removal, K control f/u labs
--- NOTE | 2017-06-17 14:06 | CP.PCM.PN ---
<Chaitanya Sharma - Last Filed: 06/17/17 14:02> Subjective - Date & Time of Evaluation Date of Evaluation: 06/17/17 Time of Evaluation: 07:40 - Subjective Subjective: PGY1 Medicine Note for Dr. Puri Patient seen and examined at bedside this morning. Patient was very lethargic. She still did not speak and continuously attempted to fall back asleep upon questioning. ROS was unattainable. Patient appeared to be comfortable. Objective - Vital Signs/Intake and Output Vital Signs (last 24 hours): Temp Pulse Resp BP Pulse Ox 97.4 F L 102 H 22 77/45 L 95 06/17/17 11:10 06/17/17 11:10 06/17/17 11:10 06/17/17 12:27 06/17/17 07:56 Intake and Output: 06/17/17 06/17/17 06:59 18:59 Intake Total 100 Output Total 30 Balance 70 - Medications Medications: Current Medications Calcium Acetate (Phoslo) 667 mg PO TIDCC [facility] Last Admin: 06/17/17 07:53 Dose: 667 mg Dorzolamide HCl (Trusopt) 10 ml OU TID [facility] Last Admin: 06/17/17 10:53 Dose: Not Given Epoetin Ken (Procrit) 10,000 unit IV MWF [facility] Last Admin: 06/17/17 12:26 Dose: 10,000 unit Ferrous Sulfate (Feosol) 325 mg PO DAILY [facility] Last Admin: 06/17/17 10:52 Dose: Not Given Metoprolol Succinate (Toprol Xl) 12.5 mg PO DAILY [facility] Montelukast Sodium (Singulair) 10 mg PO DAILY [facility] Last Admin: 06/17/17 10:53 Dose: Not Given Multivitamins (Hexavitamin) 1 tab PO DAILY [facility] Last Admin: 06/17/17 10:52 Dose: Not Given Ondansetron HCl (Zofran Inj) 4 mg IVP Q6H PRN PRN Reason: Nausea/Vomiting Last Admin: 06/16/17 10:17 Dose: 4 mg Oxycodone/Acetaminophen (Percocet 5/325 Mg Tab) 1 tab PO Q6H PRN PRN Reason: Pain, moderate (4-7) Stop: 06/19/17 12:01 Pantoprazole Sodium (Protonix Ec Tab) 40 mg PO DAILY [facility] Last Admin: 06/17/17 10:53 Dose: Not Given - Labs Labs: 06/17/17 10:06 06/17/17 10:06 PT 14.3 SECONDS (9.7-12.2) H 06/09/17 06:24 INR 1.3 06/09/17 06:24 APTT 27 SECONDS (21-34) 06/09/17 06:24 - Constitutional Appears: Non-toxic, No Acute Distress - Head Exam Head Exam: ATRAUMATIC, NORMOCEPHALIC - Eye Exam Eye Exam: EOMI, Normal appearance. absent: Scleral icterus - ENT Exam ENT Exam: Mucous Membranes Moist - Respiratory Exam Respiratory Exam: Rales (through lungs b/l), NORMAL BREATHING PATTERN. absent: Accessory Muscle Use - Cardiovascular Exam Cardiovascular Exam: REGULAR RHYTHM, +S1, +S2 - GI/Abdominal Exam GI & Abdominal Exam: Soft, Normal Bowel Sounds. absent: Distended, Firm, Guarding, Rigid, Tenderness - Extremities Exam Extremities Exam: Pedal Edema. absent: Calf Tenderness Additional comments: 2+ pitting edema b/l - Neurological Exam Neurological Exam: Alert, Awake - Skin Skin Exam: Dry, Warm Additional comments: ecchymosis of different stages of healing throughout the patient's body, most obviously on her entire right arm, upper portion of her left arm and her abdomen. sacral ulcer above right buttocks. Assessment and Plan - Assessment and Plan (Free Text) Assessment: CEZAR (acute kidney injury) --> CKD Nephrology Consult, Dr. Anderson Patient developed acute renal failure Patient is currently on hemodialysis - MWF * Dr. Tristan consulted for Perma Cath placement;placed; patient received dialysis on 06/13 Renal US 06/11/17 - limited study due to patient's body habitus. No calculus or hydronephrosis identified b/l. Probable right renal cortical cyst measures approximately 0.7 x 0.4 x 0.8 cm Successful AVF on 06/15/17 - POD 2 - bruit is present in right arm. Currently on HD MWF Perm-a-cath is no longer functioning. Need vascular surgery to re-evaluate. Patient has now had placement confirmed at [facility]. Pneumonia; resolved Patient was treated with Zosyn. Completeled treatment and is currently off all antibiotics now. Acute respiratory failure with hypoxia and hypercapnia; resolved Patient was intubated and extubated twice. Now patient is monitored on oxygen by nasal cannula. Respiratory status stable. Continue to monitor. COPD exacerbation; resolved Pulmonology Consult, Dr. Camejo Continue nebulizing treatment. s/p extubation twice Atrial fibrillation, new onset Rate controlled - Diltiazem 30mg PO Q6H Not on anticoagulation because of anemia and ecchymosis patient will need cardiology f/u on discharge On Ferrous Sulfate 325mg PO daily for Anemia CHF (congestive heart failure); diastolic dysfunction with preserved EF CXR 06/09 : stable cardiomegaly, small bilateral pleural effusions noted EF 57.8% Cont to monitor on Lasix PRN Elevated WBCs Infectious Disease consulted, Dr. Ospina 10.6 on 06/14; 12.3 on 06/13; no fevers/complaints off of all antibiotics Abnormal RBCs Hematology Oncology consulted, Dr. Mills HTN Diltiazem 30mg PO Q6H Breast Rash - Resolved Nystatin topical powder discontinued - completed treatment - 14 days total Sacral Decubitus Ulcer - stage 2 Located on the right upper buttocks Started on [place] lotion TID Turn pt every 2 hours Prophylactic measure Heparin SC 5000 Q12 Protonix 40 mg PO daily Triple lumen central line, located in the right IJ, no longer functioning properly, unable to draw back blood. All medications have been switched over PO. Triple lumen removed. Patient has been accepted to [facility]. She has also been accepted at [facility] for outpatient dialysis. Once she has her permacath fixed, she is to be discharged. Case discussed with Dr. Khushi Sharma PGY1 <Rich Puri H - Last Filed: 06/17/17 15:15> Objective - Vital Signs/Intake and Output Vital Signs (last 24 hours): Temp Pulse Resp BP Pulse Ox 97.4 F L 102 H 22 85/41 L 95 06/17/17 11:10 06/17/17 11:10 06/17/17 11:10 06/17/17 14:00 06/17/17 07:56 Intake and Output: 06/17/17 06/17/17 06:59 18:59 Intake Total 100 Output Total 30 Balance 70 - Medications Medications: Current Medications Calcium Acetate (Phoslo) 667 mg PO TIDCC [facility] Last Admin: 06/17/17 14:12 Dose: Not Given Dorzolamide HCl (Trusopt) 10 ml OU TID [facility] Last Admin: 06/17/17 14:12 Dose: Not Given Epoetin Ken (Procrit) 10,000 unit IV [facility] Last Admin: 06/17/17 12:26 Dose: 10,000 unit Ferrous Sulfate (Feosol) 325 mg PO DAILY [facility] Last Admin: 06/17/17 10:52 Dose: Not Given Heparin Sodium (Porcine) (Heparin) 3,700 units IVP [facility] Stop: 06/22/17 09:01 Metoprolol Succinate (Toprol Xl) 12.5 mg PO DAILY [facility] Montelukast Sodium (Singulair) 10 mg PO DAILY [facility] Last Admin: 06/17/17 10:53 Dose: Not Given Multivitamins (Hexavitamin) 1 tab PO DAILY [facility] Last Admin: 06/17/17 10:52 Dose: Not Given Ondansetron HCl (Zofran Inj) 4 mg IVP Q6H PRN PRN Reason: Nausea/Vomiting Last Admin: 06/16/17 10:17 Dose: 4 mg Oxycodone/Acetaminophen (Percocet 5/325 Mg Tab) 1 tab PO Q6H PRN PRN Reason: Pain, moderate (4-7) Stop: 06/19/17 12:01 Pantoprazole Sodium (Protonix Ec Tab) 40 mg PO DAILY [facility] Last Admin: 06/17/17 10:53 Dose: Not Given - Labs Labs: 06/17/17 10:06 06/17/17 10:06 PT 14.3 SECONDS (9.7-12.2) H 06/09/17 06:24 INR 1.3 06/09/17 06:24 APTT 27 SECONDS (21-34) 06/09/17 06:24 Attending/Attestation - Attestation I have personally seen and examined this patient.: Yes I have fully participated in the care of the patient.: Yes I have reviewed all pertinent clinical information, including history, physical exam and plan: Yes Notes (Text): 06/17/17 15:14 Medical attending: Patient was seen and examined by me, agrees the above note by caregivers non medical. We did consider discharging the patient today as she now does have outpatient hemodialysis as well as outpatient center to go to however I was later notified that they've been having some problems with the permacath especially every time they've tried access that they've had to use TPA Because of this we'll try to see if surgery can reexamine the permacath to see if it needs adjustment or replacement Thank you very much, Rich Puri
--- NOTE | 2017-06-17 16:22 | CP.PCM.PN ---
Subjective - Date & Time of Evaluation Date of Evaluation: 06/17/17 Time of Evaluation: 16:20 - Subjective Subjective: Surgery: Dr. Tristan Pt has poor flow from permacath. Has been given alteplase, no real improvement. Will plan for OR tomorrow for permacath exchange. NPO at midnight d/w attending Lisha PGY3 Objective - Vital Signs/Intake and Output Vital Signs (last 24 hours): Temp Pulse Resp BP Pulse Ox 97.4 F L 102 H 22 85/41 L 95 06/17/17 11:10 06/17/17 11:10 06/17/17 11:10 06/17/17 14:00 06/17/17 07:56 Intake and Output: 06/17/17 06/17/17 06:59 18:59 Intake Total 100 Output Total 30 Balance 70 - Medications Medications: Current Medications Calcium Acetate (Phoslo) 667 mg PO TIDCC [facility] Last Admin: 06/17/17 14:12 Dose: Not Given Dorzolamide HCl (Trusopt) 10 ml OU TID [facility] Last Admin: 06/17/17 14:12 Dose: Not Given Epoetin Ken (Procrit) 10,000 unit IV MWF [facility] Last Admin: 06/17/17 12:26 Dose: 10,000 unit Ferrous Sulfate (Feosol) 325 mg PO DAILY [facility] Last Admin: 06/17/17 10:52 Dose: Not Given Heparin Sodium (Porcine) (Heparin) 3,700 units IVP MWF [facility] Stop: 06/22/17 09:01 Last Admin: 06/17/17 15:27 Dose: 3,700 units Metoprolol Succinate (Toprol Xl) 12.5 mg PO DAILY [facility] Montelukast Sodium (Singulair) 10 mg PO DAILY [facility] Last Admin: 06/17/17 10:53 Dose: Not Given Multivitamins (Hexavitamin) 1 tab PO DAILY [facility] Last Admin: 06/17/17 10:52 Dose: Not Given Ondansetron HCl (Zofran Inj) 4 mg IVP Q6H PRN PRN Reason: Nausea/Vomiting Last Admin: 06/16/17 10:17 Dose: 4 mg Oxycodone/Acetaminophen (Percocet 5/325 Mg Tab) 1 tab PO Q6H PRN PRN Reason: Pain, moderate (4-7) Stop: 06/19/17 12:01 Pantoprazole Sodium (Protonix Ec Tab) 40 mg PO DAILY [facility] Last Admin: 06/17/17 10:53 Dose: Not Given - Labs Labs: 06/17/17 10:06 06/17/17 10:06 PT 14.3 SECONDS (9.7-12.2) H 06/09/17 06:24 INR 1.3 06/09/17 06:24 APTT 27 SECONDS (21-34) 06/09/17 06:24
--- NOTE | 2017-06-17 21:57 | CP.PCM.PN ---
Subjective - Date & Time of Evaluation Date of Evaluation: 06/17/17 Time of Evaluation: 11:05 - Subjective Subjective: Patient seen and examined Lethargic No cardiac events Physical Examination - Constitutional Appears: Non-toxic, No Acute Distress - Head Exam Head Exam: ATRAUMATIC, NORMOCEPHALIC - Eye Exam Eye Exam: EOMI, Normal appearance. absent: Scleral icterus - ENT Exam ENT Exam: Mucous Membranes Moist - Respiratory Exam Respiratory Exam: Rales (through lungs b/l), NORMAL BREATHING PATTERN. absent: Accessory Muscle Use - Cardiovascular Exam Cardiovascular Exam: REGULAR RHYTHM, +S1, +S2 - GI/Abdominal Exam GI & Abdominal Exam: Soft, Normal Bowel Sounds. absent: Distended, Firm, Guarding, Rigid, Tenderness - Extremities Exam Extremities Exam: Pedal Edema. absent: Calf Tenderness Additional comments: 2+ pitting edema b/l - Neurological Exam Neurological Exam: Alert, Awake - Skin Skin Exam: Dry, Warm Additional comments: ecchymosis of different stages of healing throughout the patient's body, most obviously on her entire right arm, upper portion of her left arm and her abdomen. sacral ulcer above right buttocks. Objective - Vital Signs/Intake and Output Vital Signs (last 24 hours): Temp Pulse Resp BP Pulse Ox 98.2 F 105 H 18 114/65 99 06/17/17 15:32 06/17/17 16:00 06/17/17 15:32 06/17/17 15:32 06/17/17 15:32 - Medications Medications: Current Medications Calcium Acetate (Phoslo) 667 mg PO TIDCC [facility] Last Admin: 06/17/17 18:37 Dose: 667 mg Dorzolamide HCl (Trusopt) 10 ml OU TID [facility] Last Admin: 06/17/17 18:37 Dose: 1 drop Epoetin Ken (Procrit) 10,000 unit IV F [facility] Last Admin: 06/17/17 12:26 Dose: 10,000 unit Ferrous Sulfate (Feosol) 325 mg PO DAILY [facility] Last Admin: 06/17/17 10:52 Dose: Not Given Heparin Sodium (Porcine) (Heparin) 3,700 units IVP MWF [facility] Stop: 06/22/17 09:01 Last Admin: 06/17/17 15:27 Dose: 3,700 units Metoprolol Succinate (Toprol Xl) 12.5 mg PO DAILY [facility] Montelukast Sodium (Singulair) 10 mg PO DAILY [facility] Last Admin: 06/17/17 10:53 Dose: Not Given Multivitamins (Hexavitamin) 1 tab PO DAILY [facility] Last Admin: 06/17/17 10:52 Dose: Not Given Ondansetron HCl (Zofran Inj) 4 mg IVP Q6H PRN PRN Reason: Nausea/Vomiting Last Admin: 06/16/17 10:17 Dose: 4 mg Oxycodone/Acetaminophen (Percocet 5/325 Mg Tab) 1 tab PO Q6H PRN PRN Reason: Pain, moderate (4-7) Stop: 06/19/17 12:01 Pantoprazole Sodium (Protonix Ec Tab) 40 mg PO DAILY [facility] Last Admin: 06/17/17 10:53 Dose: Not Given - Labs Labs: 06/17/17 10:06 06/17/17 10:06 PT 14.3 SECONDS (9.7-12.2) H 06/09/17 06:24 INR 1.3 06/09/17 06:24 APTT 27 SECONDS (21-34) 06/09/17 06:24 Assessment and Plan - Assessment and Plan (Free Text) Assessment: Atrial fibrillation, new onset Assessment & Plan: Rate controlled on Diltiazem 30 mg Q6H CHADs Score of 5- Patient off Lovenox due to anemia and ecchymosis. Will need to determine anticoagulation measures. At this time, on DVT prophylaxis solely. On Ferrlecit for Anemia Status: Acute CHF (congestive heart failure) Assessment & Plan: CXR 06/09 : stable cardiomegaly, small bilateral pleural effusions noted EF 57.8% Cont to monitor on Lasix PRN Status: Acute ESRD on HD MWF Assessment & Plan: Patient due for AVF today Status: Chronic Elevated troponin Assessment & Plan: On admission elevated; likely secondary to then CHF exacerbation Cont to monitor Status: Acute Prophylactic measure Assessment & Plan: Heparin SC 5000 Q12 Protonix 40 mg IV daily Status: Acute
[2017-06-18 07:41] LABS: BASO % 0.5 % (0.0-2.0); EOS # 0.1 K/uL (0.0-0.7); EOS % 0.8 % (0.0-4.0); HEMATOCRIT 31.1 % (34.0-47.0); LYMPH # 1.6 K/uL (1.0-4.3); LYMPH % 20.5 % (20.0-40.0); MEAN CELL VOLUME 97.6 fL (81.0-99.0); MEAN CORPUSCULAR HEMOGLOBIN 31.9 pg (27.0-31.0); MEAN CORPUSCULAR HGB CONC 32.7 g/dL (33.0-37.0); MEAN PLATELET VOLUME 7.6 fL (7.2-11.7); MONO % 12.8 % (0.0-10.0); NRBC % 1.5 % (0.0-2.0); RED CELL DISTRIBUTION WIDTH 26.6 % (11.5-14.5); WHITE BLOOD COUNT 7.9 K/uL (4.8-10.8)
--- NOTE | 2017-06-18 07:47 | CP.PCM.PN ---
<Chaitanya Sharma - Last Filed: 06/18/17 14:29> Subjective - Date & Time of Evaluation Date of Evaluation: 06/18/17 Time of Evaluation: 07:00 - Subjective Subjective: PGY1 Medicine Note for Dr. Puri Patient seen and examined this morning at bedside. Patient refused to answer any questions today. She is currently NPO for a perm-a-cath replacement surgery later this afternoon. Objective - Vital Signs/Intake and Output Vital Signs (last 24 hours): Temp Pulse Resp BP Pulse Ox 97.5 F L 101 H 20 98/54 L 99 06/18/17 04:10 06/18/17 04:10 06/18/17 04:10 06/18/17 04:10 06/18/17 04:20 - Medications Medications: Current Medications Calcium Acetate (Phoslo) 667 mg PO TIDCC [facility] Last Admin: 06/18/17 07:38 Dose: Not Given Dorzolamide HCl (Trusopt) 10 ml OU TID [facility] Last Admin: 06/17/17 18:37 Dose: 1 drop Epoetin Ken (Procrit) 10,000 unit IV [facility] Last Admin: 06/17/17 12:26 Dose: 10,000 unit Ferrous Sulfate (Feosol) 325 mg PO DAILY [facility] Last Admin: 06/17/17 10:52 Dose: Not Given Heparin Sodium (Porcine) (Heparin) 3,700 units IVP [facility] Stop: 06/22/17 09:01 Last Admin: 06/17/17 15:27 Dose: 3,700 units Metoprolol Succinate (Toprol Xl) 12.5 mg PO DAILY [facility] Montelukast Sodium (Singulair) 10 mg PO DAILY [facility] Last Admin: 06/17/17 10:53 Dose: Not Given Multivitamins (Hexavitamin) 1 tab PO DAILY [facility] Last Admin: 06/17/17 10:52 Dose: Not Given Ondansetron HCl (Zofran Inj) 4 mg IVP Q6H PRN PRN Reason: Nausea/Vomiting Last Admin: 06/16/17 10:17 Dose: 4 mg Oxycodone/Acetaminophen (Percocet 5/325 Mg Tab) 1 tab PO Q6H PRN PRN Reason: Pain, moderate (4-7) Stop: 06/19/17 12:01 Pantoprazole Sodium (Protonix Ec Tab) 40 mg PO DAILY [facility] Last Admin: 06/17/17 10:53 Dose: Not Given - Labs Labs: 06/18/17 07:25 06/17/17 10:06 PT 14.3 SECONDS (9.7-12.2) H 06/09/17 06:24 INR 1.3 06/09/17 06:24 APTT 27 SECONDS (21-34) 06/09/17 06:24 - Constitutional Appears: Non-toxic, No Acute Distress - Head Exam Head Exam: ATRAUMATIC, NORMOCEPHALIC - Eye Exam Eye Exam: EOMI, Normal appearance - ENT Exam ENT Exam: Mucous Membranes Moist - Respiratory Exam Respiratory Exam: Rales (scattered throughout ), NORMAL BREATHING PATTERN. absent: Accessory Muscle Use, Rhonchi, Wheezes - Cardiovascular Exam Cardiovascular Exam: REGULAR RHYTHM, +S1, +S2 - GI/Abdominal Exam GI & Abdominal Exam: Soft, Normal Bowel Sounds. absent: Distended, Firm, Guarding, Rigid, Tenderness - Extremities Exam Extremities Exam: absent: Calf Tenderness, Pedal Edema Additional comments: SCDs in place - Neurological Exam Neurological Exam: Alert, Awake Additional comments: refusing to answer any questions today. Would not even shake head yes or no. - Skin Skin Exam: Dry, Warm Assessment and Plan - Assessment and Plan (Free Text) Assessment: CEZAR (acute kidney injury) --> CKD Nephrology Consult, Dr. Anderson Patient developed acute renal failure Patient is currently on hemodialysis - MWF * Dr. Tristan consulted for Perma Cath placement;placed; patient received dialysis on 06/13 Renal US 06/11/17 - limited study due to patient's body habitus. No calculus or hydronephrosis identified b/l. Probable right renal cortical cyst measures approximately 0.7 x 0.4 x 0.8 cm Successful AVF on 06/15/17 - POD 2 - bruit is present in right arm. Currently on HD MWF Patient going for Perm-a-cath replacement later this afternoon. Patient is to use permacath tomorrow for dialysis then will be ok to discharge to [facility]. Patient has now had placement confirmed at [facility]. Pneumonia; resolved Patient was treated with Zosyn. Completeled treatment and is currently off all antibiotics now. Acute respiratory failure with hypoxia and hypercapnia; resolved Patient was intubated and extubated twice. Now patient is monitored on oxygen by nasal cannula. Respiratory status stable. Continue to monitor. COPD exacerbation; resolved Pulmonology Consult, Dr. Camejo Continue nebulizing treatment. s/p extubation twice Atrial fibrillation, new onset Rate controlled - Diltiazem 30mg PO Q6H Not on anticoagulation because of anemia and ecchymosis patient will need cardiology f/u on discharge On Ferrous Sulfate 325mg PO daily for Anemia CHF (congestive heart failure); diastolic dysfunction with preserved EF CXR 06/09 : stable cardiomegaly, small bilateral pleural effusions noted EF 57.8% Cont to monitor on Lasix PRN Elevated WBCs Infectious Disease consulted, Dr. Ospina 10.6 on 06/14; 12.3 on 06/13; no fevers/complaints off of all antibiotics Abnormal RBCs Hematology Oncology consulted, Dr. Mills HTN Diltiazem 30mg PO Q6H Breast Rash - Resolved Nystatin topical powder discontinued - completed treatment - 14 days total Sacral Decubitus Ulcer - stage 2 Located on the right upper buttocks Started on Aloe [place] lotion TID Turn pt every 2 hours Prophylactic measure Heparin SC 5000 Q12 Protonix 40 mg PO daily Triple lumen central line, located in the right IJ, no longer functioning properly, unable to draw back blood. All medications have been switched over PO. Triple lumen removed. Patient has been accepted to [facility]. She has also been accepted at [facility] for outpatient dialysis. Once she has her permacath fixed, she is to be discharged. Case discussed with Dr. Khushi Sharma PGY1 <Rich Puri H - Last Filed: 06/18/17 17:50> Objective - Vital Signs/Intake and Output Vital Signs (last 24 hours): Temp Pulse Resp BP Pulse Ox 97.7 F 92 H 20 109/69 100 06/18/17 16:10 06/18/17 16:10 06/18/17 16:10 06/18/17 16:10 06/18/17 16:10 Intake and Output: 06/18/17 06/18/17 06:59 18:59 Intake Total 220 Output Total 100 Balance 120 - Medications Medications: Current Medications Calcium Acetate (Phoslo) 667 mg PO TIDCC [facility] Last Admin: 06/18/17 11:47 Dose: Not Given Dorzolamide HCl (Trusopt) 10 ml OU TID COUNT [facility] Last Admin: 06/18/17 14:20 Dose: Not Given Epoetin Ken (Procrit) 10,000 unit IV [facility] Last Admin: 06/17/17 12:26 Dose: 10,000 unit Ferrous Sulfate (Feosol) 325 mg PO DAILY [facility] Last Admin: 06/18/17 10:21 Dose: Not Given Heparin Sodium (Porcine) (Heparin) 3,700 units IVP [facility] Stop: 06/22/17 09:01 Last Admin: 06/17/17 15:27 Dose: 3,700 units Metoprolol Succinate (Toprol Xl) 12.5 mg PO DAILY COUNT [facility] Last Admin: 06/18/17 10:22 Dose: 12.5 mg Montelukast Sodium (Singulair) 10 mg PO DAILY COUNT [facility] Last Admin: 06/18/17 10:22 Dose: 10 mg Multivitamins (Hexavitamin) 1 tab PO DAILY [facility] Last Admin: 06/18/17 10:21 Dose: Not Given Ondansetron HCl (Zofran Inj) 4 mg IVP Q6H PRN PRN Reason: Nausea/Vomiting Last Admin: 06/16/17 10:17 Dose: 4 mg Oxycodone/Acetaminophen (Percocet 5/325 Mg Tab) 1 tab PO Q6H PRN PRN Reason: Pain, moderate (4-7) Stop: 06/19/17 12:01 Pantoprazole Sodium (Protonix Ec Tab) 40 mg PO DAILY COUNT [facility] Last Admin: 06/18/17 10:22 Dose: 40 mg - Labs Labs: 06/18/17 07:25 06/18/17 07:25 PT 14.3 SECONDS (9.7-12.2) H 06/09/17 06:24 INR 1.3 06/09/17 06:24 APTT 27 SECONDS (21-34) 06/09/17 06:24 Attending/Attestation - Attestation I have personally seen and examined this patient.: Yes I have fully participated in the care of the patient.: Yes I have reviewed all pertinent clinical information, including history, physical exam and plan: Yes Notes (Text): Medical Attending: Patient was seen and examined by me. Later in the day the patient will undergo replacement of the permacath as the previous one was having difficulty with function. Hopefully can discharge relatively soon afterwards. Rich Puri
[2017-06-18 08:23] LABS: POTASSIUM 5.1 mmol/L (3.6-5.2)
[2017-06-18 08:26] LABS: BILIRUBIN,TOTAL 1.6 mg/dL (0.2-1.3); TOTAL PROTEIN 7.1 g/dL (6.3-8.3)
[2017-06-18] MEDS: Multiple Vitamins Tab PO SCH (10:21)
[2017-06-18] MEDS: Pantoprazole 40 mg EC Tab PO SCH (10:22)
[2017-06-18] MEDS: Metoprolol Succinate 12.5 mg XL PO SCH (10:22)
[2017-06-18] MEDS: Dorzolamide 2% Opht Sol 10ml OU SCH ×3 (10:22→18:09)
--- NOTE | 2017-06-18 10:43 | CP.PCM.PN ---
Subjective - Date & Time of Evaluation Date of Evaluation: 06/18/17 Time of Evaluation: 10:41 - Subjective Subjective: Sleepy still For permcath exchange today AV fistula bruit appreciated now Same weakness; no observed vomiting, dysnea Objective - Vital Signs/Intake and Output Vital Signs (last 24 hours): Temp Pulse Resp BP Pulse Ox 98.1 F 96 H 18 107/52 L 112 H 06/18/17 08:10 06/18/17 08:10 06/18/17 08:10 06/18/17 08:10 06/18/17 08:10 - Medications Medications: Current Medications Calcium Acetate (Phoslo) 667 mg PO TIDCC [facility] Last Admin: 06/18/17 07:38 Dose: Not Given Dorzolamide HCl (Trusopt) 10 ml OU TID [facility] Last Admin: 06/18/17 10:22 Dose: 1 drop Epoetin Ken (Procrit) 10,000 unit IV [facility] Last Admin: 06/17/17 12:26 Dose: 10,000 unit Ferrous Sulfate (Feosol) 325 mg PO DAILY [facility] Last Admin: 06/18/17 10:21 Dose: Not Given Heparin Sodium (Porcine) (Heparin) 3,700 units IVP [facility] Stop: 06/22/17 09:01 Last Admin: 06/17/17 15:27 Dose: 3,700 units Metoprolol Succinate (Toprol Xl) 12.5 mg PO DAILY [facility] Last Admin: 06/18/17 10:22 Dose: 12.5 mg Montelukast Sodium (Singulair) 10 mg PO DAILY [facility] Last Admin: 06/18/17 10:22 Dose: 10 mg Multivitamins (Hexavitamin) 1 tab PO DAILY [facility] Last Admin: 06/18/17 10:21 Dose: Not Given Ondansetron HCl (Zofran Inj) 4 mg IVP Q6H PRN PRN Reason: Nausea/Vomiting Last Admin: 06/16/17 10:17 Dose: 4 mg Oxycodone/Acetaminophen (Percocet 5/325 Mg Tab) 1 tab PO Q6H PRN PRN Reason: Pain, moderate (4-7) Stop: 06/19/17 12:01 Pantoprazole Sodium (Protonix Ec Tab) 40 mg PO DAILY [facility] Last Admin: 10/05/17 10:22 Dose: 40 mg - Labs Labs: 06/18/17 07:25 06/18/17 07:25 PT 14.3 SECONDS (9.7-12.2) H 06/09/17 06:24 INR 1.3 06/09/17 06:24 APTT 27 SECONDS (21-34) 06/09/17 06:24 - Constitutional Appears: Confused, Chronically Ill - Head Exam Head Exam: ATRAUMATIC, NORMAL INSPECTION - Eye Exam Eye Exam: EOMI, Normal appearance - Neck Exam Neck Exam: Normal Inspection. absent: Tenderness - Respiratory Exam Respiratory Exam: Clear to Ausculation Bilateral, NORMAL BREATHING PATTERN - Cardiovascular Exam Cardiovascular Exam: REGULAR RHYTHM, +S1 - GI/Abdominal Exam GI & Abdominal Exam: Soft. absent: Tenderness - Extremities Exam Extremities Exam: Normal Inspection. absent: Tenderness - Neurological Exam Neurological Exam: Alert, Motor Sensory Deficit - Skin Skin Exam: Pallor, Warm Assessment and Plan (1) Acute respiratory failure Status: Acute (2) Chronic a-fib Status: Acute (3) Dementia Status: Acute (4) CEZAR (acute kidney injury) Status: Acute (5) Acute respiratory failure with hypoxia and hypercapnia Status: Acute (6) History of hypertension Status: Acute (7) ESRD (end stage renal disease) Status: Acute - Assessment and Plan (Free Text) Plan: permcath exchange dialysis MWF
[2017-06-18] MEDS ORDERED: HEPARIN-NS 5,000 UNITS/500 ML 5,000 UNIT/500 ML BAG IV ONE (12:18)
[2017-06-18] MEDS ORDERED: Lidocaine 1% Inj (20ml) ONE (12:19)
[2017-06-18] MEDS ORDERED: ceFAZolin IV 2 gm in Dextrose 1 GM/50 ML BAG IVPB ONE (12:31)
[2017-06-18] MEDS ORDERED: Sodium Chloride 0.9% 500 ML IV ONE (12:40)
[2017-06-18] MEDS ORDERED: Midazolam 2 MG/2 ML VIAL ONE (12:44)
[2017-06-18] MEDS ORDERED: Propofol 10 mg/ml Inj (20 ML) ONE (12:45)
--- NOTE | 2017-06-18 13:43 | PCM.SURG1 ---
Surgeon's Initial Post Op Note - Surgeon's Notes Surgeon: Azalea Golf Ball Marker: Lisha PGY3 Type of Anesthesia: IV Sedation, Local Pre-Operative Diagnosis: Non-functioning permacath Operative Findings: permacath L IJ Post-Operative Diagnosis: same Operation Performed: exchange of L IJ permacath Specimen/Specimens Removed: none Estimated Blood Loss: EBL {In ML}: 10 Blood Products Given: N/A Drains Used: No Drains Post-Op Condition: Good Date of Surgery/Procedure: 06/18/17 Time of Surgery/Procedure: 13:43
--- NOTE | 2017-06-18 15:44 | RAD ---
INTRAOPERATIVE FLUOROSCOPY: Intraoperative fluoroscopy was provided to the referring physician to assist in placement of a tunneled central venous dialysis catheter with spot fluoroscopic images demonstrating an apparent left internal jugular approach. Please see operative report for further detail. 14.6 seconds of fluoroscopy time was utilized with a total radiation dose of 3.96 mGy. IMPRESSION: Please see discussion above.
--- NOTE | 2017-06-18 15:47 | RAD ---
HISTORY: s/p L IJ permacath COMPARISON: Portable chest 06/09/2017. FINDINGS: A total left central venous catheter appears to been replaced appearing to terminate either in the right atrium or possibly inferior vena cava. Prior right internal jugular central venous line has been removed. LUNGS: No active pulmonary disease. PLEURA: No significant right pleural effusion identified, no pneumothorax apparent. Trace left pleural effusions not excluded. CARDIOVASCULAR: Cardiac silhouette appears less prominent. Pulmonary vascular congestion is question mildly in the interval. OSSEOUS STRUCTURES: No significant abnormalities. VISUALIZED UPPER ABDOMEN: Normal. OTHER FINDINGS: None. IMPRESSION: Interval likely replacement of prior low total left central venous catheter now terminating at the right atrium/ inferior vena cava region. No pneumothorax bilaterally. Mild pulmonary venous congestion questioned at this time. Trace left pleural effusion is not excluded.
--- NOTE | 2017-06-18 17:07 | OP ---
PROCEDURE DATE: 06/18/2017 PREOPERATIVE DIAGNOSIS: Poorly functioning Perm-A-Cath. POSTOPERATIVE DIAGNOSIS: Poorly functioning Perm-A-Cath. PROCEDURE CARRIED OUT: Removal of Perm-A-Cath, left jugular vein and replacement with longer, 27 cm catheter. SURGEON: Dr. Tristan. STRATEGIC DEBRIEFING OFFICER: Dr. Husain. ANESTHESIOLOGIST: Dr. Smalls. The patient is a woman, started on dialysis, AV fistula in the right arm, not yet ready for use. She has had a previously placed Perm-A-Cath with poor flow despite the administration of lytic agents, etc. X-ray now shows the catheter is slightly pulled back and perhaps, that was the reason for it, because of this a 4 cm long catheter was inserted. DESCRIPTION OF PROCEDURE: The patient was given local anesthesia, intravenous antibiotics, intravenous sedation. Catheter was dug out of the neck adjacent to the jugular vein, clamped, wire placed through this, exchanged for a longer wire catheter to a sheath dilator. This was then tunneled and brought out on the left chest wall; at termination, this was in the right atrium. Procedure carried out was placement of Perm-A-Cath, left jugular vein, with C-arm fluoroscopy. Palmer Tristan Jr., MD
--- NOTE | 2017-06-18 22:41 | CP.PCM.PN ---
Subjective - Date & Time of Evaluation Date of Evaluation: 06/18/17 Time of Evaluation: 17:05 - Subjective Subjective: Patient s/p Perma cath exchange No cardiac events CRF on HD Physical Examination - Constitutional Appears: Non-toxic, No Acute Distress - Head Exam Head Exam: ATRAUMATIC, NORMOCEPHALIC - Eye Exam Eye Exam: EOMI, Normal appearance. absent: Scleral icterus - ENT Exam ENT Exam: Mucous Membranes Moist - Respiratory Exam Respiratory Exam: Rales (through lungs b/l), NORMAL BREATHING PATTERN. absent: Accessory Muscle Use - Cardiovascular Exam Cardiovascular Exam: REGULAR RHYTHM, +S1, +S2 - GI/Abdominal Exam GI & Abdominal Exam: Soft, Normal Bowel Sounds. absent: Distended, Firm, Guarding, Rigid, Tenderness - Extremities Exam Extremities Exam: Pedal Edema. absent: Calf Tenderness Additional comments: 2+ pitting edema b/l - Neurological Exam Neurological Exam: Alert, Awake - Skin Skin Exam: Dry, Warm Additional comments: ecchymosis of different stages of healing throughout the patient's body, most obviously on her entire right arm, upper portion of her left arm and her abdomen. sacral ulcer above right buttocks. Objective - Vital Signs/Intake and Output Vital Signs (last 24 hours): Temp Pulse Resp BP Pulse Ox 97.7 F 92 H 20 109/69 100 06/18/17 16:10 06/18/17 16:10 06/18/17 16:10 06/18/17 16:10 06/18/17 16:10 Intake and Output: 06/18/17 06/19/17 18:59 06:59 Intake Total 220 Output Total 100 Balance 120 - Medications Medications: Current Medications Calcium Acetate (Phoslo) 667 mg PO TIDCC [facility] Last Admin: 06/18/17 18:09 Dose: 667 mg Dorzolamide HCl (Trusopt) 10 ml OU TID [facility] Last Admin: 06/18/17 18:09 Dose: 1 drop Epoetin Ken (Procrit) 10,000 unit IV [facility] [place] [facility] Last Admin: 06/17/17 12:26 Dose: 10,000 unit Ferrous Sulfate (Feosol) 325 mg PO DAILY [facility] Last Admin: 06/18/17 10:21 Dose: Not Given Heparin Sodium (Porcine) (Heparin) 3,700 units IVP [facility] Stop: 06/22/17 09:01 Last Admin: 06/17/17 15:27 Dose: 3,700 units Metoprolol Succinate (Toprol Xl) 12.5 mg PO DAILY [facility] Last Admin: 06/18/17 10:22 Dose: 12.5 mg Montelukast Sodium (Singulair) 10 mg PO DAILY [facility] Last Admin: 06/18/17 10:22 Dose: 10 mg Multivitamins (Hexavitamin) 1 tab PO DAILY [facility] Last Admin: 06/18/17 10:21 Dose: Not Given Ondansetron HCl (Zofran Inj) 4 mg IVP Q6H PRN PRN Reason: Nausea/Vomiting Last Admin: 06/16/17 10:17 Dose: 4 mg Oxycodone/Acetaminophen (Percocet 5/325 Mg Tab) 1 tab PO Q6H PRN PRN Reason: Pain, moderate (4-7) Stop: 06/19/17 12:01 Pantoprazole Sodium (Protonix Ec Tab) 40 mg PO DAILY [facility] Last Admin: 06/18/17 10:22 Dose: 40 mg - Labs Labs: 06/18/17 07:25 06/18/17 07:25 PT 14.3 SECONDS (9.7-12.2) H 06/09/17 06:24 INR 1.3 06/09/17 06:24 APTT 27 SECONDS (21-34) 06/09/17 06:24 Assessment and Plan - Assessment and Plan (Free Text) Assessment: Atrial fibrillation, new onset Assessment & Plan: Rate controlled on Diltiazem 30 mg Q6H CHADs Score of 5- Patient off Lovenox due to anemia and ecchymosis. Will need to determine anticoagulation measures. At this time, on DVT prophylaxis solely. On Ferrlecit for Anemia Status: Acute CHF (congestive heart failure) Assessment & Plan: CXR 06/09 : stable cardiomegaly, small bilateral pleural effusions noted EF 60% Cont to monitor on Lasix PRN Status: Acute ESRD on HD MWF Assessment & Plan: Patient due for AVF today Status: Chronic Elevated troponin Assessment & Plan: On admission elevated; likely secondary to then CHF exacerbation Cont to monitor Status: Acute Prophylactic measure Assessment & Plan: Heparin SC 5000 Q12 Protonix 40 mg IV daily Status: Acute
--- NOTE | 2017-06-19 08:11 | CP.PCM.PN ---
Subjective - Date & Time of Evaluation Date of Evaluation: 06/19/17 Time of Evaluation: 07:00 - Subjective Subjective: Surgery Note for Dr. Tristan Pt seen and examined at bedside. Pt POD1 s/p exchange L IJ permacath. Patient did not speak and ROS was unattainable. Objective - Vital Signs/Intake and Output Vital Signs (last 24 hours): Temp Pulse Resp BP Pulse Ox 98.0 F 101 H 20 105/57 L 94 L 06/19/17 04:18 06/19/17 04:18 06/19/17 04:18 06/19/17 04:18 06/19/17 04:18 Intake and Output: 06/19/17 06/19/17 06:59 18:59 Intake Total 120 Output Total 150 Balance -30 - Medications Medications: Current Medications Calcium Acetate (Phoslo) 667 mg PO TIDCC [facility] Last Admin: 06/18/17 18:09 Dose: 667 mg Dorzolamide HCl (Trusopt) 10 ml OU TID [facility] Last Admin: 06/18/17 18:09 Dose: 1 drop Epoetin Ken (Procrit) 10,000 unit [place] [facility] Last Admin: 06/17/17 12:26 Dose: 10,000 unit Ferrous Sulfate (Feosol) 325 mg PO DAILY [facility] Last Admin: 06/18/17 10:21 Dose: Not Given Heparin Sodium (Porcine) (Heparin) 3,700 units IVP [facility] Stop: 06/22/17 09:01 Last Admin: 06/17/17 15:27 Dose: 3,700 units Metoprolol Succinate (Toprol Xl) 12.5 mg PO DAILY [facility] Last Admin: 06/18/17 10:22 Dose: 12.5 mg Montelukast Sodium (Singulair) 10 mg PO DAILY [facility] Last Admin: 06/18/17 10:22 Dose: 10 mg Multivitamins (Hexavitamin) 1 tab PO DAILY [facility] Last Admin: 06/18/17 10:21 Dose: Not Given Ondansetron HCl (Zofran Inj) 4 mg IVP Q6H PRN PRN Reason: Nausea/Vomiting Last Admin: 06/16/17 10:17 Dose: 4 mg Oxycodone/Acetaminophen (Percocet 5/325 Mg Tab) 1 tab PO Q6H PRN PRN Reason: Pain, moderate (4-7) Stop: 06/19/17 12:01 Pantoprazole Sodium (Protonix Ec Tab) 40 mg PO DAILY [facility] Last Admin: 06/18/17 10:22 Dose: 40 mg - Labs Labs: 06/18/17 07:25 06/18/17 07:25 PT 14.3 SECONDS (9.7-12.2) H 06/09/17 06:24 INR 1.3 06/09/17 06:24 APTT 27 SECONDS (21-34) 06/09/17 06:24 - Constitutional Appears: Non-toxic, No Acute Distress - Head Exam Head Exam: ATRAUMATIC, NORMAL INSPECTION, NORMOCEPHALIC - Eye Exam Eye Exam: EOMI, Normal appearance - ENT Exam ENT Exam: Mucous Membranes Moist - Respiratory Exam Respiratory Exam: Rales. absent: Accessory Muscle Use, Respiratory Distress - Cardiovascular Exam Cardiovascular Exam: REGULAR RHYTHM, +S1, +S2 - GI/Abdominal Exam GI & Abdominal Exam: Soft. absent: Tenderness - Extremities Exam Extremities Exam: Normal Inspection. absent: Pedal Edema - Neurological Exam Neurological Exam: Alert, Awake - Psychiatric Exam Psychiatric exam: Agitated - Skin Skin Exam: Intact, Normal Color, Warm Additional comments: L IJ permacath in place Assessment and Plan - Assessment and Plan (Free Text) Assessment: 76 F with PMH of ESRD on HD s/p L IJ permacath exchange POD 1 -continue monitoring labs -continue dialysis -continue medical management as per primary d/w Dr. Tristan
[2017-06-19] MEDS: Multiple Vitamins Tab PO SCH (09:33)
[2017-06-19] MEDS: Pantoprazole 40 mg EC Tab PO SCH (09:33)
[2017-06-19] MEDS: Metoprolol Succinate 12.5 mg XL PO SCH (09:34)
[2017-06-19] MEDS: Dorzolamide 2% Opht Sol 10ml OU SCH ×4 (09:36→22:23)
[2017-06-19 11:53] LABS: BASO # 0.1 K/uL (0.0-0.2); BASO % 0.7 % (0.0-2.0); EOS # 0.1 K/uL (0.0-0.7); HEMATOCRIT 32.4 % (34.0-47.0); LYMPH # 1.3 K/uL (1.0-4.3); LYMPH % 15.6 % (20.0-40.0); MEAN CELL VOLUME 98.3 fL (81.0-99.0); MEAN CORPUSCULAR HEMOGLOBIN 31.4 pg (27.0-31.0); MEAN CORPUSCULAR HGB CONC 31.9 g/dL (33.0-37.0); MEAN PLATELET VOLUME 7.2 fL (7.2-11.7); MONO # 1.2 K/uL (0.0-0.8); MONO % 14.9 % (0.0-10.0); NRBC % 1.6 % (0.0-2.0); RED CELL DISTRIBUTION WIDTH 26.8 % (11.5-14.5); WHITE BLOOD COUNT 8.2 K/uL (4.8-10.8)
[2017-06-19 12:10] LABS: POTASSIUM 4.8 mmol/L (3.6-5.2)
[2017-06-19 12:13] LABS: BILIRUBIN,TOTAL 1.4 mg/dL (0.2-1.3); TOTAL PROTEIN 7.1 g/dL (6.3-8.3)
--- NOTE | 2017-06-19 12:22 | RAD ---
HISTORY: heavy secretions COMPARISON: 06/18/2017. FINDINGS: The left PermCath terminates in the right atrium. LUNGS: The lungs are clear. PLEURA: No significant pleural effusion identified, no pneumothorax apparent. CARDIOVASCULAR: Normal. OSSEOUS STRUCTURES: No significant abnormalities. VISUALIZED UPPER ABDOMEN: Normal. OTHER FINDINGS: None. IMPRESSION: Left PermCath terminates in the right atrium. Clear lungs.
--- NOTE | 2017-06-19 14:05 | CP.PCM.PN ---
<Mayelin Rojas - Last Filed: 06/19/17 14:00> Subjective - Date & Time of Evaluation Date of Evaluation: 06/19/17 Time of Evaluation: 09:00 - Subjective Subjective: Medicine Note for Dr. Puri Patient seen and examined at bedside. Patient does not speak, ROS unattainable. Objective - Vital Signs/Intake and Output Vital Signs (last 24 hours): Temp Pulse Resp BP Pulse Ox 97.0 F L 101 H 20 125/72 99 06/19/17 08:17 06/19/17 08:17 06/19/17 08:17 06/19/17 08:17 06/19/17 08:17 Intake and Output: 06/19/17 06/19/17 06:59 18:59 Intake Total 120 Output Total 150 Balance -30 - Medications Medications: Current Medications Calcium Acetate (Phoslo) 667 mg PO TIDCC [facility] Last Admin: 06/19/17 13:00 Dose: 667 mg Dorzolamide HCl (Trusopt) 10 ml OU TID [facility] Last Admin: 06/19/17 13:37 Dose: 1 drop Epoetin Ken (Procrit) 10,000 unit IV [facility] Last Admin: 06/17/17 12:26 Dose: 10,000 unit Ferrous Sulfate (Feosol) 325 mg PO DAILY [facility] Last Admin: 06/19/17 09:33 Dose: 325 mg Heparin Sodium (Porcine) (Heparin) 3,700 units IVP MWF [facility] Stop: 06/22/17 09:01 Last Admin: 06/17/17 15:27 Dose: 3,700 units Metoprolol Succinate (Toprol Xl) 12.5 mg PO DAILY [facility] Last Admin: 06/19/17 09:34 Dose: Not Given Montelukast Sodium (Singulair) 10 mg PO DAILY [facility] Last Admin: 06/19/17 09:34 Dose: 10 mg Multivitamins (Hexavitamin) 1 tab PO DAILY [facility] Last Admin: 06/19/17 09:33 Dose: 1 tab Ondansetron HCl (Zofran Inj) 4 mg IVP Q6H PRN PRN Reason: Nausea/Vomiting Last Admin: 06/16/17 10:17 Dose: 4 mg Pantoprazole Sodium (Protonix Ec Tab) 40 mg PO DAILY [facility] Last Admin: 06/19/17 09:33 Dose: 40 mg - Labs Labs: 06/19/17 11:42 06/19/17 11:42 PT 14.3 SECONDS (9.7-12.2) H 06/09/17 06:24 INR 1.3 06/09/17 06:24 APTT 27 SECONDS (21-34) 06/09/17 06:24 - Additional Findings Additional findings: - Constitutional Appears: Non-toxic, No Acute Distress - Head Exam Head Exam: ATRAUMATIC, NORMAL INSPECTION, NORMOCEPHALIC - Eye Exam Eye Exam: EOMI, Normal appearance - ENT Exam ENT Exam: Mucous Membranes Moist - Respiratory Exam Respiratory Exam: Rales. absent: Accessory Muscle Use, Respiratory Distress - Cardiovascular Exam Cardiovascular Exam: REGULAR RHYTHM, +S1, +S2 - GI/Abdominal Exam GI & Abdominal Exam: Soft. absent: Tenderness - Extremities Exam Extremities Exam: Normal Inspection. absent: Pedal Edema - Neurological Exam Neurological Exam: Alert, Awake - Psychiatric Exam Psychiatric exam: Agitated - Skin Skin Exam: Intact, Normal Color, Warm Additional comments: L IJ permacath in place, right arm AVF - weak thrill Assessment and Plan - Assessment and Plan (Free Text) Plan: CEZAR (acute kidney injury) --> CKD Nephrology Consult, Dr. Anderson Patient developed acute renal failure Patient is currently on hemodialysis - MWF * Dr. Tristan consulted for Perma Cath placement;placed; patient received dialysis on 06/13 Renal US 06/11/17 - limited study due to patient's body habitus. No calculus or hydronephrosis identified b/l. Probable right renal cortical cyst measures approximately 0.7 x 0.4 x 0.8 cm Successful AVF on 06/15/17 - bruit is present in right arm. Currently on HD MWF S/P LEFT PERMACATH on 06/18/17 - dialysis today Atrial fibrillation, new onset Rate controlled - Diltiazem 30mg PO Q6H Not on anticoagulation because of anemia and ecchymosis patient will need cardiology f/u on discharge On Ferrous Sulfate 325mg PO daily for Anemia CHF (congestive heart failure); diastolic dysfunction with preserved EF CXR 06/09 : stable cardiomegaly, small bilateral pleural effusions noted EF 57.8% Cont to monitor on Lasix PRN HTN Diltiazem 30mg PO Q6H Sacral Decubitus Ulcer - stage 2 Located on the right upper buttocks Started on Aloe [employer] lotion TID Turn pt every 2 hours Pneumonia; resolved Patient was treated with Zosyn. Completeled treatment and is currently off all antibiotics now. Acute respiratory failure with hypoxia and hypercapnia; resolved Patient was intubated and extubated twice. Now patient is monitored on oxygen by nasal cannula. Respiratory status stable. Continue to monitor. COPD exacerbation; resolved Pulmonology Consult, Dr. Camejo Continue nebulizing treatment. s/p extubation twice Abnormal RBCs Hematology Oncology consulted, Dr. Mills Breast Rash - Resolved Nystatin topical powder discontinued - completed treatment - 14 days total Prophylactic measure Heparin SC 5000 Q12 Protonix 40 mg PO daily Patient has been accepted to [facility]. She has also been accepted at [facility] for outpatient dialysis. Once she has her permacath fixed, she is to be discharged. DW Dr. Puri, Crystal KEITH, PGY-1 <Rich Puri H - Last Filed: 06/19/17 15:58> Objective - Vital Signs/Intake and Output Vital Signs (last 24 hours): Temp Pulse Resp BP Pulse Ox 99.9 F H 106 H 20 96/56 L 98 06/19/17 14:00 06/19/17 14:00 06/19/17 14:00 06/19/17 15:00 06/19/17 14:00 Intake and Output: 06/19/17 06/19/17 06:59 18:59 Intake Total 120 Output Total 150 Balance -30 - Medications Medications: Current Medications Calcium Acetate (Phoslo) 667 mg PO TIDCC [facility] Last Admin: 06/19/17 13:00 Dose: 667 mg Dorzolamide HCl (Trusopt) 10 ml OU TID [facility] Last Admin: 06/19/17 13:37 Dose: 1 drop Epoetin Ken (Procrit) 10,000 unit IV [facility] Last Admin: 06/19/17 14:58 Dose: 10,000 unit Ferrous Sulfate (Feosol) 325 mg PO DAILY [facility] Last Admin: 06/19/17 09:33 Dose: 325 mg Heparin Sodium (Porcine) (Heparin) 3,700 units IVP [facility] Stop: 06/22/17 09:01 Last Admin: 06/19/17 14:59 Dose: 3,700 units Metoprolol Succinate (Toprol Xl) 12.5 mg PO DAILY [facility] Last Admin: 06/19/17 09:34 Dose: Not Given Montelukast Sodium (Singulair) 10 mg PO DAILY [facility] Last Admin: 06/19/17 09:34 Dose: 10 mg Multivitamins (Hexavitamin) 1 tab PO DAILY [facility] Last Admin: 06/19/17 09:33 Dose: 1 tab Ondansetron HCl (Zofran Inj) 4 mg IVP Q6H PRN PRN Reason: Nausea/Vomiting Last Admin: 06/16/17 10:17 Dose: 4 mg Pantoprazole Sodium (Protonix Ec Tab) 40 mg PO DAILY [facility] Last Admin: 06/19/17 09:33 Dose: 40 mg - Labs Labs: 06/19/17 11:42 06/19/17 11:42 PT 14.3 SECONDS (9.7-12.2) H 06/09/17 06:24 INR 1.3 06/09/17 06:24 APTT 27 SECONDS (21-34) 06/09/17 06:24 Attending/Attestation - Attestation I have personally seen and examined this patient.: Yes I have fully participated in the care of the patient.: Yes I have reviewed all pertinent clinical information, including history, physical exam and plan: Yes Notes (Text): 06/19/17 15:52 Medical Attending: Patient was seen and examined by me, agree with the above note by the resident. The patient was s/p exchange of the permacath. For HD later today. As mentioned previously - the patient is not on active anticoagulation due to major bleeding occuring while in the ICU. Currently Hgb is stable, but continue to monitor. The patient HR is controlled with cardizem at this time. thank you Rich Puri
--- NOTE | 2017-06-19 14:07 | CP.PCM.PN ---
Subjective - Date & Time of Evaluation Date of Evaluation: 06/19/17 Time of Evaluation: 14:04 - Subjective Subjective: To start dialysis now s/p permcath change To try to UF 2500ml AV fistula with bruit No observed n, v, diarrhea. Lethargic but no complaint Objective - Vital Signs/Intake and Output Vital Signs (last 24 hours): Temp Pulse Resp BP Pulse Ox 97.0 F L 101 H 20 125/72 99 06/19/17 08:17 06/19/17 08:17 06/19/17 08:17 06/19/17 08:17 06/19/17 08:17 Intake and Output: 06/19/17 06/19/17 06:59 18:59 Intake Total 120 Output Total 150 Balance -30 - Medications Medications: Current Medications Calcium Acetate (Phoslo) 667 mg PO TIDCC [facility] Last Admin: 06/19/17 13:00 Dose: 667 mg Dorzolamide HCl (Trusopt) 10 ml OU TID [facility] Last Admin: 06/19/17 13:37 Dose: 1 drop Epoetin Ken (Procrit) 10,000 unit IV [facility] Last Admin: 06/17/17 12:26 Dose: 10,000 unit Ferrous Sulfate (Feosol) 325 mg PO DAILY [facility] Last Admin: 06/19/17 09:33 Dose: 325 mg Heparin Sodium (Porcine) (Heparin) 3,700 units IVP [facility] Stop: 06/22/17 09:01 Last Admin: 06/17/17 15:27 Dose: 3,700 units Metoprolol Succinate (Toprol Xl) 12.5 mg PO DAILY [facility] Last Admin: 06/19/17 09:34 Dose: Not Given Montelukast Sodium (Singulair) 10 mg PO DAILY [facility] Last Admin: 06/19/17 09:34 Dose: 10 mg Multivitamins (Hexavitamin) 1 tab PO DAILY [facility] Last Admin: 06/19/17 09:33 Dose: 1 tab Ondansetron HCl (Zofran Inj) 4 mg IVP Q6H PRN PRN Reason: Nausea/Vomiting Last Admin: 06/16/17 10:17 Dose: 4 mg Pantoprazole Sodium (Protonix Ec Tab) 40 mg PO DAILY [facility] Last Admin: 06/19/17 09:33 Dose: 40 mg - Labs Labs: 06/19/17 11:42 06/19/17 11:42 PT 14.3 SECONDS (9.7-12.2) H 06/09/17 06:24 INR 1.3 06/09/17 06:24 APTT 27 SECONDS (21-34) 06/09/17 06:24 - Constitutional Appears: No Acute Distress, Chronically Ill - Head Exam Head Exam: ATRAUMATIC, NORMAL INSPECTION - Eye Exam Eye Exam: EOMI, Normal appearance - Neck Exam Neck Exam: Normal Inspection. absent: Tenderness - Respiratory Exam Respiratory Exam: Clear to Ausculation Bilateral, NORMAL BREATHING PATTERN - Cardiovascular Exam Cardiovascular Exam: Irregular Rhythm, +S1 - GI/Abdominal Exam GI & Abdominal Exam: Soft. absent: Tenderness - Extremities Exam Extremities Exam: Normal Inspection. absent: Tenderness - Neurological Exam Neurological Exam: Altered, Motor Sensory Deficit - Skin Skin Exam: Dry, Warm Assessment and Plan (1) Acute respiratory failure Status: Acute (2) Chronic a-fib Status: Acute (3) Dementia Status: Acute (4) CEZAR (acute kidney injury) Status: Acute (5) Acute respiratory failure with hypoxia and hypercapnia Status: Acute (6) History of hypertension Status: Acute (7) ESRD (end stage renal disease) Status: Acute - Assessment and Plan (Free Text) Plan: Continue dialysis schedule Monitor permcath fundtion Await AV access maturation
[2017-06-19] MEDS: Epoetin Alfa 10,000 unit/ml Dialysis IV SCH (14:58)
--- NOTE | 2017-06-20 06:43 | CP.PCM.PN ---
<Chaitanya Sharma - Last Filed: 06/20/17 06:40> Subjective - Date & Time of Evaluation Date of Evaluation: 06/20/17 Time of Evaluation: 06:40 - Subjective Subjective: PGY1 Medicine Note for Dr. Puri Patient seen and examined at bedside. Patient does not speak, ROS unattainable. Objective - Vital Signs/Intake and Output Vital Signs (last 24 hours): Temp Pulse Resp BP Pulse Ox 98.3 F 110 H 20 119/68 98 06/20/17 04:05 06/20/17 04:05 06/20/17 04:05 06/20/17 04:05 06/20/17 04:05 Intake and Output: 06/19/17 06/20/17 18:59 06:59 Intake Total 240 120 Output Total 50 Balance 240 70 - Medications Medications: Current Medications Calcium Acetate (Phoslo) 667 mg PO TIDCC [facility] Last Admin: 06/19/17 22:20 Dose: Not Given Dorzolamide HCl (Trusopt) 10 ml OU TID [facility] Last Admin: 06/19/17 22:23 Dose: 1 drop Epoetin Ken (Procrit) [facility] Last Admin: 06/19/17 14:58 Dose: 10,000 unit Ferrous Sulfate (Feosol) 325 mg PO DAILY [facility] Last Admin: 06/19/17 09:33 Dose: 325 mg Heparin Sodium (Porcine) (Heparin) 3,700 units IVP MWF [facility] Stop: 06/22/17 09:01 Last Admin: 06/19/17 14:59 Dose: 3,700 units Metoprolol Succinate (Toprol Xl) 12.5 mg PO DAILY [facility] Last Admin: 06/19/17 09:34 Dose: Not Given Montelukast Sodium (Singulair) 10 mg PO DAILY [facility] Last Admin: 06/19/17 09:34 Dose: 10 mg Multivitamins (Hexavitamin) 1 tab PO DAILY [facility] Last Admin: 06/19/17 09:33 Dose: 1 tab Ondansetron HCl (Zofran Inj) 4 mg IVP Q6H PRN PRN Reason: Nausea/Vomiting Last Admin: 06/16/17 10:17 Dose: 4 mg Pantoprazole Sodium (Protonix Ec Tab) 40 mg PO DAILY [facility] Last Admin: 06/19/17 09:33 Dose: 40 mg - Labs Labs: 06/19/17 11:42 06/19/17 11:42 PT 14.3 SECONDS (9.7-12.2) H 06/09/17 06:24 INR 1.3 06/09/17 06:24 APTT 27 SECONDS (21-34) 06/09/17 06:24 - Constitutional Appears: Non-toxic, No Acute Distress - Head Exam Head Exam: ATRAUMATIC, NORMOCEPHALIC - Eye Exam Eye Exam: EOMI, Normal appearance - ENT Exam ENT Exam: Mucous Membranes Moist - Respiratory Exam Respiratory Exam: Rales (throughout b/l). absent: Accessory Muscle Use, Respiratory Distress - Cardiovascular Exam Cardiovascular Exam: REGULAR RHYTHM, +S1, +S2 - GI/Abdominal Exam GI & Abdominal Exam: Soft. absent: Distended, Firm, Guarding, Rigid, Tenderness - Extremities Exam Extremities Exam: absent: Calf Tenderness, Pedal Edema - Neurological Exam Neurological Exam: Alert, Awake - Psychiatric Exam Psychiatric exam: Agitated - Skin Skin Exam: Dry, Warm Additional comments: scattered ecchymosis throughout. L IJ permacath. R arm AVF - weak thrill. Assessment and Plan - Assessment and Plan (Free Text) Plan: CEZAR (acute kidney injury) --> CKD Nephrology Consult, Dr. Anderson Patient developed acute renal failure Patient is currently on hemodialysis - MWF * Dr. Tristan consulted for Perma Cath placement;placed; patient received dialysis on 06/13 Renal US 06/11/17 - limited study due to patient's body habitus. No calculus or hydronephrosis identified b/l. Probable right renal cortical cyst measures approximately 0.7 x 0.4 x 0.8 cm Successful AVF on 06/15/17 - bruit is present in right arm. Currently on HD MWF S/P LEFT PERMACATH on 06/18/17 - dialysis today Atrial fibrillation, new onset Rate controlled - Diltiazem 30mg PO Q6H Not on anticoagulation because of anemia and ecchymosis patient will need cardiology f/u on discharge On Ferrous Sulfate 325mg PO daily for Anemia CHF (congestive heart failure); diastolic dysfunction with preserved EF CXR 06/09 : stable cardiomegaly, small bilateral pleural effusions noted EF 57.8% Cont to monitor on Lasix PRN HTN Diltiazem 30mg PO Q6H Sacral Decubitus Ulcer - stage 2 Located on the right upper buttocks Started on Aloe [place] lotion TID Turn pt every 2 hours Pneumonia; resolved Patient was treated with Zosyn. Completeled treatment and is currently off all antibiotics now. Acute respiratory failure with hypoxia and hypercapnia; resolved Patient was intubated and extubated twice. Now patient is monitored on oxygen by nasal cannula. Respiratory status stable. Continue to monitor. COPD exacerbation; resolved Pulmonology Consult, Dr. Camejo Continue nebulizing treatment. s/p extubation twice Abnormal RBCs Hematology Oncology consulted, Dr. Mills Breast Rash - Resolved Nystatin topical powder discontinued - completed treatment - 14 days total Prophylactic measure Heparin SC 5000 Q12 Protonix 40 mg PO daily Patient has been accepted to [facility]. She has also been accepted at [facility] for outpatient dialysis. Once she has her permacath fixed, she is to be discharged. Will discuss case with Dr. Khushi Sharma PGY1 <Rich Puri H - Last Filed: 06/20/17 09:22> Objective - Vital Signs/Intake and Output Vital Signs (last 24 hours): Temp Pulse Resp BP Pulse Ox 97.4 F L 65 20 101/65 97 06/20/17 07:00 06/20/17 07:00 06/20/17 07:00 06/20/17 07:00 06/20/17 07:00 Intake and Output: 06/20/17 06/20/17 06:59 18:59 Intake Total 120 Output Total 50 Balance 70 - Medications Medications: Current Medications Calcium Acetate (Phoslo) 667 mg PO TIDCC [facility] Last Admin: 06/20/17 08:23 Dose: 667 mg Epoetin Ken (Procrit) 10,000 unit IV F [facility] Last Admin: 06/19/17 14:58 Dose: 10,000 unit Ferrous Sulfate (Feosol) 325 mg PO DAILY [facility] Last Admin: 06/19/17 09:33 Dose: 325 mg Heparin Sodium (Porcine) (Heparin) 3,700 units IVP MWF [facility] Stop: 06/22/17 09:01 Last Admin: 06/19/17 14:59 Dose: 3,700 units Metoprolol Succinate (Toprol Xl) 12.5 mg PO DAILY [facility] Last Admin: 06/19/17 09:34 Dose: Not Given Montelukast Sodium (Singulair) 10 mg PO DAILY [facility] Last Admin: 06/19/17 09:34 Dose: 10 mg Ondansetron HCl (Zofran Inj) 4 mg IVP Q6H PRN PRN Reason: Nausea/Vomiting Last Admin: 06/16/17 10:17 Dose: 4 mg Pantoprazole Sodium (Protonix Ec Tab) 40 mg PO DAILY [facility] Last Admin: 06/19/17 09:33 Dose: 40 mg - Labs Labs: 06/20/17 07:54 06/20/17 07:54 PT 14.3 SECONDS (9.7-12.2) H 06/09/17 06:24 INR 1.3 06/09/17 06:24 APTT 27 SECONDS (21-34) 06/09/17 06:24 Attending/Attestation - Attestation I have personally seen and examined this patient.: Yes I have fully participated in the care of the patient.: Yes I have reviewed all pertinent clinical information, including history, physical exam and plan: Yes Notes (Text): Medical Attending: Patient was seen and examined by me. Agree with the above note by the resident. The patient I am told had HD yesterday with the newly exchanged permacath. The patient when she came to the ER had documented new onset atrial fibrillation and was on anticoagulation - however this was stopped when she developed heavy bleeding in the ICU. At this time she is not on anticoagulation due to the heavy bleeding. Hgb is stable for now however continue to monitor. Currently on telemetry the HR looks NSR in the 60s. thank you Rich Puri
[2017-06-20 08:08] LABS: BASO # 0.1 K/uL (0.0-0.2); EOS # 0.1 K/uL (0.0-0.7); EOS % 0.6 % (0.0-4.0); LYMPH # 1.9 K/uL (1.0-4.3); MEAN CELL VOLUME 98.2 fL (81.0-99.0); MEAN CORPUSCULAR HGB CONC 32.6 g/dL (33.0-37.0); MEAN PLATELET VOLUME 7.7 fL (7.2-11.7); MONO # 1.4 K/uL (0.0-0.8); MONO % 15.4 % (0.0-10.0); NRBC % 3.3 % (0.0-2.0); PLATELET COUNT 171 K/uL (130-400); RED CELL DISTRIBUTION WIDTH 26.9 % (11.5-14.5); WHITE BLOOD COUNT 8.8 K/uL (4.8-10.8)
[2017-06-20 08:34] LABS: POTASSIUM 4.2 mmol/L (3.6-5.2)
[2017-06-20 08:36] LABS: BILIRUBIN,TOTAL 1.7 mg/dL (0.2-1.3)
[2017-06-20 08:37] LABS: CALCIUM 8.9 mg/dl (8.6-10.4); TOTAL PROTEIN 7.5 g/dL (6.3-8.3)
[2017-06-20] MEDS: Metoprolol Succinate 12.5 mg XL PO SCH (09:57)
[2017-06-20] MEDS: Pantoprazole 40 mg EC Tab PO SCH (09:57)
[2017-06-20 11:14] LABS: EOSINOPHIL 1 % (0-4); MYELOCYTE 2 % (0-0); NEUTROPHIL 61 % (50-75); NUCLEATED RED BLOOD CELL 7 % (0-0); TOTAL CELLS COUNTED 100
[2017-06-20 11:15] LABS: LARGE PLATELETS PRESENT
--- NOTE | 2017-06-20 12:29 | CP.PCM.PN ---
Subjective - Date & Time of Evaluation Date of Evaluation: 06/20/17 Time of Evaluation: 10:15 - Subjective Subjective: nonverbal poor po intake per rn, noted exudate from permcath pt with mouth secretions unable to obtain ros due to ams Objective - Vital Signs/Intake and Output Vital Signs (last 24 hours): Temp Pulse Resp BP Pulse Ox 97.4 F L 65 20 101/65 97 06/20/17 07:00 06/20/17 07:00 06/20/17 07:00 06/20/17 07:00 06/20/17 07:00 Intake and Output: 06/20/17 06/20/17 06:59 18:59 Intake Total 120 Output Total 50 Balance 70 - Medications Medications: Current Medications Calcium Acetate (Phoslo) 667 mg PO TIDCC [facility] Last Admin: 06/20/17 08:23 Dose: 667 mg Epoetin Ken (Procrit) 10,000 unit IV MWF [facility] Last Admin: 06/19/17 14:58 Dose: 10,000 unit Ferrous Sulfate (Feosol) 325 mg PO DAILY [facility] Last Admin: 06/20/17 09:57 Dose: 325 mg Heparin Sodium (Porcine) (Heparin) 3,700 units IVP MWF [facility] Stop: 06/22/17 09:01 Last Admin: 06/19/17 14:59 Dose: 3,700 units Metoprolol Succinate (Toprol Xl) 12.5 mg PO DAILY [facility] Last Admin: 06/20/17 09:57 Dose: 12.5 mg Ondansetron HCl (Zofran Inj) 4 mg IVP Q6H PRN PRN Reason: Nausea/Vomiting Last Admin: 06/16/17 10:17 Dose: 4 mg Pantoprazole Sodium (Protonix Ec Tab) 40 mg PO DAILY [facility] Last Admin: 06/20/17 09:57 Dose: 40 mg - Labs Labs: 06/20/17 07:54 06/20/17 07:54 PT 14.3 SECONDS (9.7-12.2) H 06/09/17 06:24 INR 1.3 06/09/17 06:24 APTT 27 SECONDS (21-34) 06/09/17 06:24 - Constitutional Appears: Chronically Ill - Head Exam Head Exam: ATRAUMATIC - ENT Exam Additional comments: secretions from mouth - Neck Exam Neck Exam: absent: Lymphadenopathy - Respiratory Exam Respiratory Exam: Decreased Breath Sounds, Rhonchi. absent: Accessory Muscle Use - GI/Abdominal Exam GI & Abdominal Exam: Distended, Soft - Extremities Exam Additional comments: contracted Assessment and Plan - Assessment and Plan (Free Text) Plan: dialysis dependent, next on Thursday consider change of catheter to another site ?PEG
--- NOTE | 2017-06-20 21:27 | CP.PCM.PN ---
Subjective - Date & Time of Evaluation Date of Evaluation: 06/19/17 Time of Evaluation: 17:55 - Subjective Subjective: Patient seen and examined at bedside. Patient does not speak Physical Examination - Additional Findings Additional findings: - Constitutional Appears: Non-toxic, No Acute Distress - Head Exam Head Exam: ATRAUMATIC, NORMAL INSPECTION, NORMOCEPHALIC - Eye Exam Eye Exam: EOMI, Normal appearance - ENT Exam ENT Exam: Mucous Membranes Moist - Respiratory Exam Respiratory Exam: Rales. absent: Accessory Muscle Use, Respiratory Distress - Cardiovascular Exam Cardiovascular Exam: REGULAR RHYTHM, +S1, +S2 - GI/Abdominal Exam GI & Abdominal Exam: Soft. absent: Tenderness - Extremities Exam Extremities Exam: Normal Inspection. absent: Pedal Edema - Neurological Exam Neurological Exam: Alert, Awake - Psychiatric Exam Psychiatric exam: Agitated - Skin Skin Exam: Intact, Normal Color, Warm Additional comments: L IJ permacath in place, right arm AVF - weak thrill Objective - Vital Signs/Intake and Output Vital Signs (last 24 hours): Temp Pulse Resp BP Pulse Ox 98.4 F 113 H 20 107/62 95 06/20/17 15:14 06/20/17 15:14 06/20/17 15:14 06/20/17 15:14 06/20/17 15:14 Intake and Output: 06/20/17 06/21/17 18:59 06:59 Intake Total 240 Output Total 10 Balance 230 - Medications Medications: Current Medications Calcium Acetate (Phoslo) 667 mg PO TIDCC [facility] Last Admin: 06/20/17 18:38 Dose: 667 mg Epoetin Ken (Procrit) 10,000 unit IV MWF [facility] Last Admin: 06/19/17 14:58 Dose: 10,000 unit Ferrous Sulfate (Feosol) 325 mg PO DAILY [facility] Last Admin: 06/20/17 09:57 Dose: 325 mg Metoprolol Succinate (Toprol Xl) 12.5 mg PO DAILY [facility] Last Admin: 06/20/17 09:57 Dose: 12.5 mg Ondansetron HCl (Zofran Inj) 4 mg IVP Q6H PRN PRN Reason: Nausea/Vomiting Last Admin: 06/20/17 21:00 Dose: 4 mg Pantoprazole Sodium (Protonix Ec Tab) 40 mg PO DAILY [facility] Last Admin: 06/20/17 09:57 Dose: 40 mg - Labs Labs: 06/20/17 07:54 06/20/17 07:54 PT 14.3 SECONDS (9.7-12.2) H 06/09/17 06:24 INR 1.3 06/09/17 06:24 APTT 27 SECONDS (21-34) 06/09/17 06:24 Assessment and Plan - Assessment and Plan (Free Text) Assessment: Assessment and Plan - Assessment and Plan (Free Text) Plan: CEZAR (acute kidney injury) --> CKD Nephrology Consult, Dr. Anderson Patient developed acute renal failure Patient is currently on hemodialysis - MWF * Dr. Tristan consulted for Perma Cath placement;placed; patient received dialysis on 06/13 Renal US 06/11/17 - limited study due to patient's body habitus. No calculus or hydronephrosis identified b/l. Probable right renal cortical cyst measures approximately 0.7 x 0.4 x 0.8 cm Successful AVF on 06/15/17 - bruit is present in right arm. Currently on HD MWF S/P LEFT PERMACATH on 06/18/17 - dialysis today Atrial fibrillation, new onset Rate controlled - Diltiazem 30mg PO Q6H Not on anticoagulation because of anemia and ecchymosis patient will need cardiology f/u on discharge On Ferrous Sulfate 325mg PO daily for Anemia CHF (congestive heart failure); diastolic dysfunction with preserved EF CXR 06/09 : stable cardiomegaly, small bilateral pleural effusions noted EF 57.8% Cont to monitor on Lasix PRN HTN Diltiazem 30mg PO Q6H Sacral Decubitus Ulcer - stage 2 Located on the right upper buttocks Started on Aloe [place] lotion TID Turn pt every 2 hours Pneumonia; resolved Patient was treated with Zosyn. Completeled treatment and is currently off all antibiotics now. Acute respiratory failure with hypoxia and hypercapnia; resolved Patient was intubated and extubated twice. Now patient is monitored on oxygen by nasal cannula. Respiratory status stable. Continue to monitor. COPD exacerbation; resolved Pulmonology Consult, Dr. Camejo Continue nebulizing treatment. s/p extubation twice Abnormal RBCs Hematology Oncology consulted, Dr. Mills Breast Rash - Resolved Nystatin topical powder discontinued - completed treatment - 14 days total Prophylactic measure Heparin SC 5000 Q12 Protonix 40 mg PO daily Patient has been accepted to [facility]. She has also been accepted at [facility] for outpatient dialysis. Once she has her permacath fixed, she is to be discharged.
[2017-06-21 07:30] LABS: BASO # 0.1 K/uL (0.0-0.2); BASO % 1.1 % (0.0-2.0); EOS % 0.5 % (0.0-4.0); HEMATOCRIT 34.5 % (34.0-47.0); LYMPH # 1.7 K/uL (1.0-4.3); LYMPH % 20.8 % (20.0-40.0); MEAN CELL VOLUME 99.4 fL (81.0-99.0); MEAN CORPUSCULAR HEMOGLOBIN 31.8 pg (27.0-31.0); MEAN PLATELET VOLUME 7.7 fL (7.2-11.7); MONO # 1.2 K/uL (0.0-0.8); RED CELL DISTRIBUTION WIDTH 26.3 % (11.5-14.5)
[2017-06-21 07:51] LABS: POTASSIUM 4.8 mmol/L (3.6-5.2)
[2017-06-21 07:53] LABS: BILIRUBIN,TOTAL 1.5 mg/dL (0.2-1.3)
[2017-06-21 07:54] LABS: ALB/GLOB RATIO 0.9 (1.0-2.1); CALCIUM 9.1 mg/dl (8.6-10.4); TOTAL PROTEIN 7.3 g/dL (6.3-8.3)
--- NOTE | 2017-06-21 08:32 | CP.PCM.PN ---
<Chaitanya Sharma - Last Filed: 06/21/17 08:30> Subjective - Date & Time of Evaluation Date of Evaluation: 06/21/17 Time of Evaluation: 08:30 - Subjective Subjective: PGY1 Medicine Note for Dr. Puri Patient seen and examined at bedside. Patient does not speak, ROS unattainable. Objective - Vital Signs/Intake and Output Vital Signs (last 24 hours): Temp Pulse Resp BP Pulse Ox 97.9 F 111 H 18 118/68 96 06/20/17 23:00 06/21/17 04:10 06/21/17 04:10 06/21/17 04:10 06/20/17 23:00 - Medications Medications: Current Medications Calcium Acetate (Phoslo) 667 mg PO TIDCC [facility] Last Admin: 06/21/17 07:51 Dose: 667 mg Epoetin Ken (Procrit) 10,000 unit IV MWF [facility] Last Admin: 06/19/17 14:58 Dose: 10,000 unit Ferrous Sulfate (Feosol) 325 mg PO DAILY [facility] Last Admin: 06/20/17 09:57 Dose: 325 mg Metoprolol Succinate (Toprol Xl) 12.5 mg PO DAILY [facility] Last Admin: 06/20/17 09:57 Dose: 12.5 mg Ondansetron HCl (Zofran Inj) 4 mg IVP Q6H PRN PRN Reason: Nausea/Vomiting Last Admin: 06/20/17 21:00 Dose: 4 mg Pantoprazole Sodium (Protonix Ec Tab) 40 mg PO DAILY [facility] Last Admin: 06/20/17 09:57 Dose: 40 mg - Labs Labs: 06/21/17 07:15 06/21/17 07:15 PT 14.3 SECONDS (9.7-12.2) H 06/09/17 06:24 INR 1.3 06/09/17 06:24 APTT 27 SECONDS (21-34) 06/09/17 06:24 - Constitutional Appears: Non-toxic, No Acute Distress - Head Exam Head Exam: ATRAUMATIC, NORMOCEPHALIC - Eye Exam Eye Exam: EOMI, Normal appearance - ENT Exam ENT Exam: Mucous Membranes Moist - Respiratory Exam Respiratory Exam: Rales, NORMAL BREATHING PATTERN. absent: Accessory Muscle Use , Respiratory Distress - Cardiovascular Exam Cardiovascular Exam: REGULAR RHYTHM, +S1 - GI/Abdominal Exam GI & Abdominal Exam: Soft. absent: Distended, Firm, Guarding, Rigid, Tenderness - Extremities Exam Extremities Exam: absent: Calf Tenderness - Neurological Exam Neurological Exam: Alert, Awake - Psychiatric Exam Psychiatric exam: Agitated - Skin Skin Exam: Dry, Warm - Additional Findings Additional findings: scattered ecchymosis throughout. L IJ permacath. R arm AVF - weak thrill. Assessment and Plan - Assessment and Plan (Free Text) Assessment: CEZAR (acute kidney injury) --> CKD Nephrology Consult, Dr. Anderson Patient developed acute renal failure Patient is currently on hemodialysis - MWF * Dr. Tristan consulted for Perma Cath placement;placed; patient received dialysis on 06/13 Renal US 06/11/17 - limited study due to patient's body habitus. No calculus or hydronephrosis identified b/l. Probable right renal cortical cyst measures approximately 0.7 x 0.4 x 0.8 cm Successful AVF on 06/15/17 - bruit is present in right arm. Currently on HD MWF S/P LEFT PERMACATH on 06/18/17 - dialysis today Atrial fibrillation, new onset Rate controlled - Diltiazem 30mg PO Q6H Not on anticoagulation because of anemia and ecchymosis patient will need cardiology f/u on discharge On Ferrous Sulfate 325mg PO daily for Anemia CHF (congestive heart failure); diastolic dysfunction with preserved EF CXR 06/09 : stable cardiomegaly, small bilateral pleural effusions noted EF 57.8% Cont to monitor on Lasix PRN HTN Diltiazem 30mg PO Q6H Sacral Decubitus Ulcer - stage 2 Located on the right upper buttocks Started on Aloe [place] lotion TID Turn pt every 2 hours Pneumonia; resolved Patient was treated with Zosyn. Completeled treatment and is currently off all antibiotics now. Acute respiratory failure with hypoxia and hypercapnia; resolved Patient was intubated and extubated twice. Now patient is monitored on oxygen by nasal cannula. Respiratory status stable. Continue to monitor. COPD exacerbation; resolved Pulmonology Consult, Dr. Camejo Continue nebulizing treatment. s/p extubation twice Abnormal RBCs Hematology Oncology consulted, Dr. Mills Breast Rash - Resolved Nystatin topical powder discontinued - completed treatment - 14 days total Prophylactic measure Heparin SC 5000 Q12 Protonix 40 mg PO daily Patient has been accepted to [facility]. She has also been accepted at [facility] for outpatient dialysis. Once she has her permacath fixed, she is to be discharged. Will discuss case with Dr. Khushi Sharma PGY1 <Rich Puri - Last Filed: 06/21/17 08:50> Objective - Vital Signs/Intake and Output Vital Signs (last 24 hours): Temp Pulse Resp BP Pulse Ox 97.9 F 111 H 18 118/68 96 06/20/17 23:00 06/21/17 04:10 06/21/17 04:10 06/21/17 04:10 06/20/17 23:00 - Medications Medications: Current Medications Calcium Acetate (Phoslo) 667 mg PO TIDCC [facility] Last Admin: 06/21/17 07:51 Dose: 667 mg Epoetin Ken (Procrit) 10,000 unit IV MWF [facility] Last Admin: 06/19/17 14:58 Dose: 10,000 unit Ferrous Sulfate (Feosol) 325 mg PO DAILY [facility] Last Admin: 06/20/17 09:57 Dose: 325 mg Metoprolol Succinate (Toprol Xl) 12.5 mg PO DAILY [facility] Last Admin: 06/20/17 09:57 Dose: 12.5 mg Ondansetron HCl (Zofran Inj) 4 mg IVP Q6H PRN PRN Reason: Nausea/Vomiting Last Admin: 06/20/17 21:00 Dose: 4 mg Pantoprazole Sodium (Protonix Ec Tab) 40 mg PO DAILY [facility] Last Admin: 06/20/17 09:57 Dose: 40 mg - Labs Labs: 06/21/17 07:15 06/21/17 07:15 PT 14.3 SECONDS (9.7-12.2) H 06/09/17 06:24 INR 1.3 06/09/17 06:24 APTT 27 SECONDS (21-34) 06/09/17 06:24 Attending/Attestation - Attestation I have personally seen and examined this patient.: Yes I have fully participated in the care of the patient.: Yes I have reviewed all pertinent clinical information, including history, physical exam and plan: Yes Notes (Text): 06/21/17 08:46 Medical Attending: Patient was seen and examined by me. Agree with the above note by the resident The patient was awake, alert, she did not appear to be in any acute distress at this time. As mentioned previously currently non verbal. Hgb is 11.5 today and this is similar to before. As mentioned previously she had heavy bleeding in the ICU when she was on lovenox for atrial fibrillation. Per inspection of the telemetry today she appears to be in sinus tachycardia - HR 110s The area around her replaced permacath was cleaned and dry. thank you Rich Puri
--- NOTE | 2017-06-21 08:48 | CP.PCM.PN ---
Subjective - Date & Time of Evaluation Date of Evaluation: 06/21/17 Time of Evaluation: 06:50 - Subjective Subjective: Vascular Surgery Dr. Tristan Pt S&E @bedside. yesterday, purulent drain noted surrounding permacath site. NAEO. no complaints. tolerating diet. Objective - Vital Signs/Intake and Output Vital Signs (last 24 hours): Temp Pulse Resp BP Pulse Ox 97.9 F 111 H 18 118/68 96 06/20/17 23:00 06/21/17 04:10 06/21/17 04:10 06/21/17 04:10 06/20/17 23:00 - Medications Medications: Current Medications Calcium Acetate (Phoslo) 667 mg PO TIDCC [facility] Last Admin: 06/21/17 07:51 Dose: 667 mg Epoetin Ken (Procrit) 10,000 unit IV MWF [facility] Last Admin: 06/19/17 14:58 Dose: 10,000 unit Ferrous Sulfate (Feosol) 325 mg PO DAILY [facility] Last Admin: 06/20/17 09:57 Dose: 325 mg Metoprolol Succinate (Toprol Xl) 12.5 mg PO DAILY [facility] Last Admin: 06/20/17 09:57 Dose: 12.5 mg Ondansetron HCl (Zofran Inj) 4 mg IVP Q6H PRN PRN Reason: Nausea/Vomiting Last Admin: 06/20/17 21:00 Dose: 4 mg Pantoprazole Sodium (Protonix Ec Tab) 40 mg PO DAILY [facility] Last Admin: 06/20/17 09:57 Dose: 40 mg - Labs Labs: 06/21/17 07:15 06/21/17 07:15 PT 14.3 SECONDS (9.7-12.2) H 06/09/17 06:24 INR 1.3 06/09/17 06:24 APTT 27 SECONDS (21-34) 06/09/17 06:24 - Constitutional Appears: Non-toxic, No Acute Distress, Chronically Ill - Head Exam Head Exam: NORMAL INSPECTION - Eye Exam Eye Exam: Normal appearance - ENT Exam ENT Exam: Mucous Membranes Moist - Neck Exam Additional comments: Permacath in place no drainage present dressing c/d/i - Respiratory Exam Respiratory Exam: NORMAL BREATHING PATTERN. absent: Accessory Muscle Use, Respiratory Distress - GI/Abdominal Exam GI & Abdominal Exam: Soft. absent: Distended - Neurological Exam Neurological Exam: Alert, Awake - Psychiatric Exam Psychiatric exam: Normal Affect, Normal Mood - Skin Skin Exam: Dry, Intact, Normal Color Assessment and Plan - Assessment and Plan (Free Text) Assessment: 76 y/o F POD#3 s/p Permacath exchange over guidewire - monitor labs, vitals - if continued drainage noted, will likely replace permacath - cont medical management Further recs per Dr. Azalea Terrazas DO PGY2
[2017-06-21] MEDS: Pantoprazole 40 mg EC Tab PO SCH (10:32)
[2017-06-21] MEDS: Metoprolol Succinate 12.5 mg XL PO SCH (10:33)
--- NOTE | 2017-06-21 21:15 | CP.PCM.PN ---
Subjective - Date & Time of Evaluation Date of Evaluation: 06/21/17 Time of Evaluation: 20:40 - Subjective Subjective: Patient seen and examined at bedside. Patient does not speak Physical Examination - Additional Findings Additional findings: - Constitutional Appears: Non-toxic, No Acute Distress - Head Exam Head Exam: ATRAUMATIC, NORMAL INSPECTION, NORMOCEPHALIC - Eye Exam Eye Exam: EOMI, Normal appearance - ENT Exam ENT Exam: Mucous Membranes Moist - Respiratory Exam Respiratory Exam: Rales. absent: Accessory Muscle Use, Respiratory Distress - Cardiovascular Exam Cardiovascular Exam: REGULAR RHYTHM, +S1, +S2 - GI/Abdominal Exam GI & Abdominal Exam: Soft. absent: Tenderness - Extremities Exam Extremities Exam: Normal Inspection. absent: Pedal Edema - Neurological Exam Neurological Exam: Alert, Awake - Psychiatric Exam Psychiatric exam: Agitated - Skin Skin Exam: Intact, Normal Color, Warm Additional comments: L IJ permacath in place, right arm AVF - weak thrill Objective - Vital Signs/Intake and Output Vital Signs (last 24 hours): Temp Pulse Resp BP Pulse Ox 98.0 F 118 H 20 115/63 97 06/21/17 15:17 06/21/17 15:17 06/21/17 15:17 06/21/17 15:17 06/21/17 07:00 - Medications Medications: Current Medications Calcium Acetate (Phoslo) 667 mg PO TIDCC [facility] Last Admin: 06/21/17 11:35 Dose: 667 mg Epoetin Ken (Procrit) 10,000 unit IV MWF [facility] Last Admin: 06/19/17 14:58 Dose: 10,000 unit Ferrous Sulfate (Feosol) 325 mg PO DAILY [facility] Last Admin: 06/21/17 10:32 Dose: 325 mg Metoprolol Succinate (Toprol Xl) 12.5 mg PO DAILY [facility] Last Admin: 06/21/17 10:33 Dose: 12.5 mg Ondansetron HCl (Zofran Inj) 4 mg IVP Q6H PRN PRN Reason: Nausea/Vomiting Last Admin: 06/20/17 21:00 Dose: 4 mg Pantoprazole Sodium (Protonix Ec Tab) 40 mg PO DAILY [facility] Last Admin: 06/21/17 10:32 Dose: 40 mg - Labs Labs: 06/21/17 07:15 06/21/17 07:15 PT 14.3 SECONDS (9.7-12.2) H 06/09/17 06:24 INR 1.3 06/09/17 06:24 APTT 27 SECONDS (21-34) 06/09/17 06:24 Assessment and Plan - Assessment and Plan (Free Text) Assessment: CEZAR (acute kidney injury) --> CKD Nephrology Consult, Dr. Anderson Patient developed acute renal failure Patient is currently on hemodialysis - MWF * Dr. Tristan consulted for Perma Cath placement;placed; patient received dialysis on 06/13 Renal US 06/11/17 - limited study due to patient's body habitus. No calculus or hydronephrosis identified b/l. Probable right renal cortical cyst measures approximately 0.7 x 0.4 x 0.8 cm Successful AVF on 06/15/17 - bruit is present in right arm. Currently on HD MWF S/P LEFT PERMACATH on 06/18/17 - dialysis today Atrial fibrillation, new onset Rate controlled - Diltiazem 30mg PO Q6H Not on anticoagulation because of anemia and ecchymosis patient will need cardiology f/u on discharge On Ferrous Sulfate 325mg PO daily for Anemia CHF (congestive heart failure); diastolic dysfunction with preserved EF CXR 06/09 : stable cardiomegaly, small bilateral pleural effusions noted EF 57.8% Cont to monitor on Lasix PRN HTN Diltiazem 30mg PO Q6H Sacral Decubitus Ulcer - stage 2 Located on the right upper buttocks Started on Aloe [place] lotion TID Turn pt every 2 hours Pneumonia; resolved Patient was treated with Zosyn. Completeled treatment and is currently off all antibiotics now. Acute respiratory failure with hypoxia and hypercapnia; resolved Patient was intubated and extubated twice. Now patient is monitored on oxygen by nasal cannula. Respiratory status stable. Continue to monitor. COPD exacerbation; resolved Pulmonology Consult, Dr. Camejo Continue nebulizing treatment. s/p extubation twice Abnormal RBCs Hematology Oncology consulted, Dr. Mills Breast Rash - Resolved Nystatin topical powder discontinued - completed treatment - 14 days total Prophylactic measure Heparin SC 5000 Q12 Protonix 40 mg PO daily
--- NOTE | 2017-06-21 21:16 | CP.PCM.PN ---
Subjective - Date & Time of Evaluation Date of Evaluation: 06/20/17 Time of Evaluation: 14:20 - Subjective Subjective: Patient seen and examined at bedside. Not in distress Physical Examination - Additional Findings Additional findings: - Constitutional Appears: Non-toxic, No Acute Distress - Head Exam Head Exam: ATRAUMATIC, NORMAL INSPECTION, NORMOCEPHALIC - Eye Exam Eye Exam: EOMI, Normal appearance - ENT Exam ENT Exam: Mucous Membranes Moist - Respiratory Exam Respiratory Exam: Rales. absent: Accessory Muscle Use, Respiratory Distress - Cardiovascular Exam Cardiovascular Exam: REGULAR RHYTHM, +S1, +S2 - GI/Abdominal Exam GI & Abdominal Exam: Soft. absent: Tenderness - Extremities Exam Extremities Exam: Normal Inspection. absent: Pedal Edema - Neurological Exam Neurological Exam: Alert, Awake - Psychiatric Exam Psychiatric exam: Agitated - Skin Skin Exam: Intact, Normal Color, Warm Additional comments: L IJ permacath in place, right arm AVF - weak thrill Objective - Vital Signs/Intake and Output Vital Signs (last 24 hours): Temp Pulse Resp BP Pulse Ox 98.0 F 118 H 20 115/63 97 06/21/17 15:17 06/21/17 15:17 06/21/17 15:17 06/21/17 15:17 06/21/17 07:00 - Medications Medications: Current Medications Calcium Acetate (Phoslo) 667 mg PO TIDCC [facility] Last Admin: 06/21/17 11:35 Dose: 667 mg Epoetin Ken (Procrit) 10,000 unit IV MWF [facility] Last Admin: 06/19/17 14:58 Dose: 10,000 unit Ferrous Sulfate (Feosol) 325 mg PO DAILY [facility] Last Admin: 06/21/17 10:32 Dose: 325 mg Metoprolol Succinate (Toprol Xl) 12.5 mg PO DAILY [facility] Last Admin: 06/21/17 10:33 Dose: 12.5 mg Ondansetron HCl (Zofran Inj) 4 mg IVP Q6H PRN PRN Reason: Nausea/Vomiting Last Admin: 06/20/17 21:00 Dose: 4 mg Pantoprazole Sodium (Protonix Ec Tab) 40 mg PO DAILY [facility] Last Admin: 06/21/17 10:32 Dose: 40 mg - Labs Labs: 06/21/17 07:15 06/21/17 07:15 PT 14.3 SECONDS (9.7-12.2) H 06/09/17 06:24 INR 1.3 06/09/17 06:24 APTT 27 SECONDS (21-34) 06/09/17 06:24 Assessment and Plan - Assessment and Plan (Free Text) Assessment: CEZAR (acute kidney injury) --> CKD Nephrology Consult, Dr. Anderson Patient developed acute renal failure Patient is currently on hemodialysis - MWF * Dr. Tristan consulted for Perma Cath placement;placed; patient received dialysis on 06/13 Renal US 06/11/17 - limited study due to patient's body habitus. No calculus or hydronephrosis identified b/l. Probable right renal cortical cyst measures approximately 0.7 x 0.4 x 0.8 cm Successful AVF on 06/15/17 - bruit is present in right arm. Currently on HD MWF S/P LEFT PERMACATH on 06/18/17 - dialysis today Atrial fibrillation, new onset Rate controlled - Diltiazem 30mg PO Q6H Not on anticoagulation because of anemia and ecchymosis patient will need cardiology f/u on discharge On Ferrous Sulfate 325mg PO daily for Anemia CHF (congestive heart failure); diastolic dysfunction with preserved EF CXR 06/09 : stable cardiomegaly, small bilateral pleural effusions noted EF 57.8% Cont to monitor on Lasix PRN HTN Diltiazem 30mg PO Q6H Sacral Decubitus Ulcer - stage 2 Located on the right upper buttocks Started on Aloe [place] lotion TID Turn pt every 2 hours Pneumonia; resolved Patient was treated with Zosyn. Completeled treatment and is currently off all antibiotics now. Acute respiratory failure with hypoxia and hypercapnia; resolved Patient was intubated and extubated twice. Now patient is monitored on oxygen by nasal cannula. Respiratory status stable. Continue to monitor. COPD exacerbation; resolved Pulmonology Consult, Dr. Camejo Continue nebulizing treatment. s/p extubation twice Abnormal RBCs Hematology Oncology consulted, Dr. Mills Breast Rash - Resolved Nystatin topical powder discontinued - completed treatment - 14 days total Prophylactic measure Heparin SC 5000 Q12 Protonix 40 mg PO daily
[2017-06-22 09:31] LABS: BASO # 0.1 K/uL (0.0-0.2); EOS % 0.3 % (0.0-4.0); HEMATOCRIT 36.6 % (34.0-47.0); LYMPH # 2.1 K/uL (1.0-4.3); LYMPH % 21.1 % (20.0-40.0); MEAN CELL VOLUME 100.6 fL (81.0-99.0); MEAN CORPUSCULAR HEMOGLOBIN 31.4 pg (27.0-31.0); MEAN CORPUSCULAR HGB CONC 31.3 g/dL (33.0-37.0); MEAN PLATELET VOLUME 7.5 fL (7.2-11.7); MONO # 1.6 K/uL (0.0-0.8); MONO % 15.5 % (0.0-10.0); NRBC % 2.9 % (0.0-2.0); RED CELL DISTRIBUTION WIDTH 26.2 % (11.5-14.5); WHITE BLOOD COUNT 10.1 K/uL (4.8-10.8)
[2017-06-22 09:46] LABS: ALB/GLOB RATIO 0.9 (1.0-2.1); BILIRUBIN,TOTAL 1.6 mg/dL (0.2-1.3); TOTAL PROTEIN 7.8 g/dL (6.3-8.3)
[2017-06-22 09:49] LABS: POTASSIUM 5.6 mmol/L (3.6-5.2)
[2017-06-22] MEDS: Epoetin Alfa 10,000 unit/ml Dialysis IV SCH (09:51)
[2017-06-22] MEDS: Pantoprazole 40 mg EC Tab PO SCH (10:48)
[2017-06-22] MEDS: Metoprolol Succinate 12.5 mg XL PO SCH (10:49)
--- NOTE | 2017-06-22 13:11 | CP.PCM.PN ---
Subjective - Date & Time of Evaluation Date of Evaluation: 06/22/17 Time of Evaluation: 13:08 - Subjective Subjective: s/p dialysis today- UF 1100ml reved only sl bleeding around permcath exit site blood cultures drawn as patient more lethargic Objective - Vital Signs/Intake and Output Vital Signs (last 24 hours): Temp Pulse Resp BP Pulse Ox 99.4 F 66 20 116/80 95 06/22/17 09:10 06/22/17 09:00 06/22/17 09:10 06/22/17 12:05 06/22/17 09:10 - Medications Medications: Current Medications Calcium Acetate (Phoslo) 667 mg PO TIDCC [facility] Last Admin: 06/22/17 08:15 Dose: Not Given Epoetin Ken (Procrit) 10,000 unit IV MWF [facility] Last Admin: 06/22/17 09:51 Dose: 10,000 unit Ferrous Sulfate (Feosol) 325 mg PO DAILY [facility] Last Admin: 06/22/17 10:47 Dose: Not Given Metoprolol Succinate (Toprol Xl) 12.5 mg PO DAILY [facility] Last Admin: 06/22/17 10:49 Dose: Not Given Ondansetron HCl (Zofran Inj) 4 mg IVP Q6H PRN PRN Reason: Nausea/Vomiting Last Admin: 06/20/17 21:00 Dose: 4 mg Pantoprazole Sodium (Protonix Ec Tab) 40 mg PO DAILY [facility] Last Admin: 06/22/17 10:48 Dose: Not Given - Labs Labs: 06/22/17 09:26 06/22/17 09:26 PT 14.3 SECONDS (9.7-12.2) H 06/09/17 06:24 INR 1.3 06/09/17 06:24 APTT 27 SECONDS (21-34) 06/09/17 06:24 - Constitutional Appears: No Acute Distress, Chronically Ill - Head Exam Head Exam: ATRAUMATIC, NORMAL INSPECTION - Eye Exam Eye Exam: EOMI, Normal appearance - Neck Exam Neck Exam: Normal Inspection. absent: Tenderness - Respiratory Exam Respiratory Exam: Clear to Ausculation Bilateral, NORMAL BREATHING PATTERN - Cardiovascular Exam Cardiovascular Exam: REGULAR RHYTHM, +S1 - GI/Abdominal Exam GI & Abdominal Exam: Soft. absent: Tenderness - Extremities Exam Extremities Exam: Normal Inspection. absent: Tenderness - Neurological Exam Neurological Exam: Altered, Motor Sensory Deficit - Skin Skin Exam: Dry, Warm Assessment and Plan (1) Acute respiratory failure Status: Acute (2) Chronic a-fib Status: Acute (3) Dementia Status: Acute (4) CEZAR (acute kidney injury) Status: Acute (5) Acute respiratory failure with hypoxia and hypercapnia Status: Acute (6) History of hypertension Status: Acute (7) ESRD (end stage renal disease) Status: Acute - Assessment and Plan (Free Text) Plan: Decrease UF goal blood cultures sent await av access maturation will need outpt hd placement
--- NOTE | 2017-06-22 13:25 | CP.PCM.PN ---
<VipulNealjesi - Last Filed: 06/22/17 17:31> Subjective - Date & Time of Evaluation Date of Evaluation: 06/22/17 Time of Evaluation: 10:26 - Subjective Subjective: Cardiology Progress Notes- Dr. Hart's service Patient seen and evaluated in dialysis. Patient appeared more lethargic and somnolent than her norm. Per dialysis nurse, there was some bleeding noted at the dialysis cath site. The site was cleaned and a dressing was placed. Upon reassessment, site appeared clean. Patient's blood pressures were reportedly low as well. Patient was not able to respond to a review of symptoms at this time due to lethargy. Objective - Vital Signs/Intake and Output Vital Signs (last 24 hours): Temp Pulse Resp BP Pulse Ox 97.9 F 114 H 20 97/54 L 98 06/22/17 12:40 06/22/17 12:40 06/22/17 12:40 06/22/17 12:40 06/22/17 12:40 - Medications Medications: Current Medications Calcium Acetate (Phoslo) 667 mg PO TIDCC [facility] Last Admin: 06/22/17 08:15 Dose: Not Given Epoetin Ken (Procrit) 10,000 unit IV MWF [facility] Last Admin: 06/22/17 09:51 Dose: 10,000 unit Ferrous Sulfate (Feosol) 325 mg PO DAILY [facility] Last Admin: 06/22/17 10:47 Dose: Not Given Metoprolol Succinate (Toprol Xl) 12.5 mg PO DAILY [facility] Last Admin: 06/22/17 10:49 Dose: Not Given Ondansetron HCl (Zofran Inj) 4 mg IVP Q6H PRN PRN Reason: Nausea/Vomiting Last Admin: 06/20/17 21:00 Dose: 4 mg Pantoprazole Sodium (Protonix Ec Tab) 40 mg PO DAILY [facility] Last Admin: 06/22/17 10:48 Dose: Not Given - Labs Labs: 06/22/17 09:26 06/22/17 09:26 PT 14.3 SECONDS (9.7-12.2) H 06/09/17 06:24 INR 1.3 06/09/17 06:24 APTT 27 SECONDS (21-34) 06/09/17 06:24 - Constitutional Appears: Non-toxic, No Acute Distress - Head Exam Head Exam: ATRAUMATIC, NORMAL INSPECTION, NORMOCEPHALIC - Eye Exam Additional comments: could not assess - ENT Exam ENT Exam: Mucous Membranes Dry - Neck Exam Neck Exam: Full ROM - Respiratory Exam Respiratory Exam: NORMAL BREATHING PATTERN - Cardiovascular Exam Cardiovascular Exam: +S1, +S2. absent: Tachycardia - GI/Abdominal Exam GI & Abdominal Exam: Soft - Neurological Exam Neurological Exam: absent: Alert, Awake Assessment and Plan (1) Atrial fibrillation, new onset Status: Acute (2) CHF (congestive heart failure) Status: Chronic (3) Elevated troponin Status: Acute (4) Prophylactic measure Status: Acute - Assessment and Plan (Free Text) Assessment: Hypotension Assessment & Plan: Patient was very hypotensive in dialysis earlier today. It was recommended that patient be given a fluid bolus, with a reduced HD goal . BOAT ENGINE MECHANIC was called in the afternoon for hypotension and lethargy and patient transferred to the ICU Atrial fibrillation Assessment & Plan: Patient is not rate controlled on Diltiazem 30 mg Q6H. This may be secondarily due to hypotension and thus will wait to add another rate controlling agent at this time. CHADs Score of 5- Patient off Lovenox due to anemia and ecchymosis. Will need to determine anticoagulation measures. At this time, on DVT prophylaxis solely. On Ferrlecit for Anemia Status: Acute CHF (congestive heart failure) Assessment & Plan: CXR 06/09 : stable cardiomegaly, small bilateral pleural effusions noted EF 57.8% Cont to monitor on Lasix PRN Status: Acute ESRD on HD MWF Assessment & Plan: Patient had HD today Decreased goal due to hypotension Status: Chronic Elevated troponin Assessment & Plan: On admission elevated; likely secondary to then CHF exacerbation Cont to monitor Status: Acute Prophylactic measure Assessment & Plan: Heparin SC 5000 Q12 Protonix 40 mg PO daily Status: Acute Discussed with Dr. Hart. All management and planning per Dr. Hart. <Ish Hart - Last Filed: 06/22/17 21:34> Objective - Vital Signs/Intake and Output Vital Signs (last 24 hours): Temp Pulse Resp BP Pulse Ox 98.4 F 116 H 13 93/50 L 97 06/22/17 20:00 06/22/17 19:55 06/22/17 19:53 06/22/17 19:53 06/22/17 19:53 Intake and Output: 06/22/17 06/23/17 18:59 06:59 Intake Total 0 0 Balance 0 0 - Medications Medications: Current Medications Calcium Acetate (Phoslo) 667 mg PO TIDCC [facility] Last Admin: 06/22/17 17:10 Dose: Not Given Epoetin Ken (Procrit) 10,000 unit IV MWF [facility] Last Admin: 06/22/17 09:51 Dose: 10,000 unit Ferrous Sulfate (Feosol) 325 mg PO DAILY [facility] Last Admin: 06/22/17 10:47 Dose: Not Given Heparin Sodium (Porcine) (Heparin) 5,000 units SC Q12 [facility] Metoprolol Succinate (Toprol Xl) 12.5 mg PO DAILY [facility] Last Admin: 06/22/17 10:49 Dose: Not Given Ondansetron HCl (Zofran Inj) 4 mg IVP Q6H PRN PRN Reason: Nausea/Vomiting Last Admin: 06/20/17 21:00 Dose: 4 mg Pantoprazole Sodium (Protonix Ec Tab) 40 mg PO DAILY [facility] Last Admin: 06/22/17 10:48 Dose: Not Given - Labs Labs: 06/22/17 09:26 06/22/17 09:26 PT 14.3 SECONDS (9.7-12.2) H 06/09/17 06:24 INR 1.3 06/09/17 06:24 APTT 27 SECONDS (21-34) 06/09/17 06:24 Assessment and Plan - Assessment and Plan (Free Text) Assessment: Patient seen and evaluated with the center medical and lab director Plan of care as documented
[2017-06-22] MEDS ORDERED: Sodium Chloride 0.9% 500 ML IV ONE (13:31)
[2017-06-22 13:59] LABS: ABG ALLEN TEST POS; DRAW SITE LRA
[2017-06-22] MEDS: Albumin Human 25% (12.5 gm/50 ml) IV ONE ×2 (14:00→17:10)
[2017-06-22] MEDS ORDERED: Albumin Human 25% (12.5 gm/50 ml) IV ONE (14:00)
--- NOTE | 2017-06-22 14:43 | RAD ---
HISTORY: shortness of breathe COMPARISON: Chest x-ray performed 06/19/17 TECHNIQUE: Chest, one view. FINDINGS: Examination limited by habitus. Left central venous dialysis catheter extends to the expected location of the right atrium. LUNGS: Mild pulmonary venous congestion. No focal consolidation. PLEURA: No significant pleural effusion identified. No definite pneumothorax . CARDIOVASCULAR: Cardiomegaly. OSSEOUS STRUCTURES: Degenerative changes. VISUALIZED UPPER ABDOMEN: Unremarkable. OTHER FINDINGS: None. IMPRESSION: Left central venous dialysis catheter likely extends to the right atrium. Cardiomegaly. Mild pulmonary venous congestion.
--- NOTE | 2017-06-22 18:58 | CP.PCM.CON ---
History of Present Illness - History of Present Illness History of Present Illness: ICU consult note Reason for consultation: Hypotensive and lethargic s/p HD HPI: Patient is a 76 year old female with PMH of COPD, Asthma, HTN, Cardiomegaly , Dementia who has had an extensive complicated hospital course. Patient was transfer to the ICU due to hypotension and lethargic s/p HD. PMD: Dr Costa PMHx: COPD (2nd hand smoke); asthma; cardiomegaly; dementia PSHx: cataracts; abdominal hernia about 30 years ago; bilateral tubal ligation FamHx: mother, , unspecified; father, from heart issues; son with asthma Allergies: NKDA SocialHx: denies tobacco, denies etoh, denies illicit drug use, lives alone w/ help of manager in home Review of Systems - Review of Systems Review of Systems: Unable to evaluate ROS due to patient's clinical condition Past Patient History - Past Medical History & Family History Past Medical History?: Yes Past Family History: Reviewed and not pertinent - Past Social History Smoking Status: Never Smoked Chewing Tobacco Use: No Cigar Use: No Alcohol: None Home Situation {Lives}: Fpc - CARDIAC Hx Hypertension: Yes - PULMONARY Hx Chronic Obstructive Pulmonary Disease (COPD): Yes - NEUROLOGICAL Hx Dementia: Yes - RENAL Hx Chronic Kidney Disease: No - ENDOCRINE/METABOLIC Hx Endocrine Disorders: No - HEMATOLOGICAL/ONCOLOGICAL Hx Blood Disorders: No - INTEGUMENTARY Hx Dermatological Problems: No - MUSCULOSKELETAL/RHEUMATOLOGICAL Hx Degenerative Joint Disease: Yes Hx Osteoarthritis: Yes - GASTROINTESTINAL Hx Gastrointestinal Disorders: No - GENITOURINARY/GYNECOLOGICAL Hx Genitourinary Disorders: No - PSYCHIATRIC Hx Substance Use: No - SURGICAL HISTORY Hx Surgeries: Yes Hx Cataract Extraction: Yes Hx Herniorrhaphy: Yes (Umbilical) - ANESTHESIA Hx Anesthesia: Yes Hx Anesthesia Reactions: No Meds Allergies/Adverse Reactions: Allergies Allergy/AdvReac Type Severity Reaction Status Date / Time No Known Allergies Allergy Unverified 05/22/17 09:31 - Medications Medications: Current Medications Calcium Acetate (Phoslo) 667 mg PO TIDCC [facility] Last Admin: 06/22/17 17:10 Dose: Not Given Epoetin Ken (Procrit) 10,000 unit IV MWF [facility] Last Admin: 06/22/17 09:51 Dose: 10,000 unit Ferrous Sulfate (Feosol) 325 mg PO DAILY [facility] Last Admin: 06/22/17 10:47 Dose: Not Given Heparin Sodium (Porcine) (Heparin) 5,000 units SC Q12 [facility] Metoprolol Succinate (Toprol Xl) 12.5 mg PO DAILY [facility] Last Admin: 06/22/17 10:49 Dose: Not Given Ondansetron HCl (Zofran Inj) 4 mg IVP Q6H PRN PRN Reason: Nausea/Vomiting Last Admin: 06/20/17 21:00 Dose: 4 mg Pantoprazole Sodium (Protonix Ec Tab) 40 mg PO DAILY [facility] Last Admin: 06/22/17 10:48 Dose: Not Given Physical Exam - Head Exam Head Exam: ATRAUMATIC - Eye Exam Eye Exam: EOMI - Respiratory Exam Respiratory Exam: Clear to Auscultation Bilateral Additional comments: Currently on Bipap - Cardiovascular Exam Cardiovascular Exam: REGULAR RHYTHM, +S1, +S2 - GI/Abdominal Exam GI & Abdominal Exam: Hypoactive Bowel Sounds. absent: Tenderness - Extremities Exam Extremities exam: Positive for: pedal edema - Neurological Exam Neurological exam: Alert Results - Vital Signs Recent Vital Signs: Last Vital Signs Temp 98.1 F 06/22/17 16:00 Pulse 114 H 06/22/17 17:00 Resp 20 06/22/17 17:00 BP 104/41 L 06/22/17 17:00 Pulse Ox 99 06/22/17 17:00 - Labs Result Diagrams: 06/22/17 09:26 06/22/17 09:26 Labs: Laboratory Results - last 24 hr 06/22/17 06/22/17 06/22/17 09:26 09:26 13:31 WBC 10.1 RBC 3.64 L Hgb 11.4 Hct 36.6 MCV 100.6 H MCH 31.4 H MCHC 31.3 L RDW 26.2 H Plt Count 188 MPV 7.5 Neut % (Auto) 62.1 Lymph % (Auto) 21.1 [place] % (Auto) 15.5 H Eos % (Auto) 0.3 Baso % (Auto) 1.0 Neut # 6.2 Lymph # 2.1 [place] # 1.6 H Eos # 0.0 Baso # 0.1 Puncture Site pCO2 pO2 HCO3 ABG pH ABG Total CO2 ABG O2 Saturation ABG Base Excess Sj Test ABG Potassium Glucose Lactate Sodium 141 Potassium 5.6 H Chloride 98 Carbon Dioxide 30 Anion Gap 19 BUN 71 H Creatinine 6.2 H Est GFR ( Amer) 8 Est GFR (Non-Af Amer) 7 POC Glucose (mg/dL) 144 H Random Glucose 101 Calcium 9.0 Total Bilirubin 1.6 H AST 44 H ALT 26 Alkaline Phosphatase 83 Total Protein 7.8 Albumin 3.7 Globulin 4.1 H Albumin/Globulin Ratio 0.9 L Arterial Blood Potassium 06/22/17 13:57 WBC RBC Hgb Hct MCV MCH MCHC RDW Plt Count MPV Neut % (Auto) Lymph % (Auto) [place] % (Auto) Eos % (Auto) Baso % (Auto) Neut # Lymph # [place] # Eos # Baso # Puncture Site Lra pCO2 55 H pO2 61 L HCO3 26.2 ABG pH 7.33 L ABG Total CO2 30.7 H ABG O2 Saturation 94.1 L ABG Base Excess 1.9 Sj Test Pos ABG Potassium 3.5 L Glucose 132 H Lactate 2.3 H Sodium 141.0 Potassium Chloride 105.0 Carbon Dioxide Anion Gap BUN Creatinine Est GFR ( Amer) Est GFR (Non-Af Amer) POC Glucose (mg/dL) Random Glucose Calcium Total Bilirubin AST ALT Alkaline Phosphatase Total Protein Albumin Globulin Albumin/Globulin Ratio Arterial Blood Potassium 3.5 L Assessment & Plan - Assessment and Plan (Free Text) Assessment: Patient is a 76 year old female with PMH of COPD, Asthma, HTN, Cardiomegaly, Dementia who has had an extensive complicated hospital course. Patient was transfer to the ICU due to hypotension and lethargic s/p HD. Plan: Neuro: Alert, awake Cardio: Hypotension, Hx of A.fibrillation, Hx of CHF, Medication/Management: * Lopressor 12.5mg PO daily ( Held due to hypotension) * Antocoagulation contraindicated due to diffuse ecchymosis Renal: End stage renal disease Medication/Management: * HD on M, W, F * Procrit 10,000 unit with HD * Phoslo 667mg PO TIDCC Heme: Anemia secondary to ESRD Medication/Management: * Feosol 325mg PO daily Prophylaxis: DVT: Heparin SC 5000 Q12 GI: Protonix 40 mg PO daily Zofran 4mg IVP Q6H prn
--- NOTE | 2017-06-22 21:49 | CP.PCM.PN ---
<Chaitanya Sharma - Last Filed: 06/22/17 21:45> Subjective - Date & Time of Evaluation Date of Evaluation: 06/22/17 Time of Evaluation: 06:50 - Subjective Subjective: PGY1 Medicine Note for Dr. Davalos Patient seen and examined at bedside. Patient does not speak, ROS unattainable. Patient appears more lethargic than usual. Difficult to arouse. PROCESS DEVELOPMENT ENGINEER was called on patient today for hypotension, 78/49, HR 128, temp 97.9, BS 144. Patient given a liter bolus of NS and placed on BiPap at 12 and 6. ICU was called to evaluate the patient and accepted patient to be transferred. Objective - Vital Signs/Intake and Output Vital Signs (last 24 hours): Temp Pulse Resp BP Pulse Ox 98.4 F 116 H 13 93/50 L 97 06/22/17 20:00 06/22/17 19:55 06/22/17 19:53 06/22/17 19:53 06/22/17 19:53 Intake and Output: 06/22/17 06/23/17 18:59 06:59 Intake Total 0 0 Balance 0 0 - Medications Medications: Current Medications Calcium Acetate (Phoslo) 667 mg PO TIDCC [facility] Last Admin: 06/22/17 17:10 Dose: Not Given Epoetin Ken (Procrit) 10,000 unit IV MWF [facility] Last Admin: 06/22/17 09:51 Dose: 10,000 unit Ferrous Sulfate (Feosol) 325 mg PO DAILY [facility] Last Admin: 06/22/17 10:47 Dose: Not Given Heparin Sodium (Porcine) (Heparin) 5,000 units SC Q12 [facility] Metoprolol Succinate (Toprol Xl) 12.5 mg PO DAILY [facility] Last Admin: 06/22/17 10:49 Dose: Not Given Ondansetron HCl (Zofran Inj) 4 mg IVP Q6H PRN PRN Reason: Nausea/Vomiting Last Admin: 06/20/17 21:00 Dose: 4 mg Pantoprazole Sodium (Protonix Ec Tab) 40 mg PO DAILY [facility] Last Admin: 06/22/17 10:48 Dose: Not Given - Labs Labs: 06/22/17 09:26 06/22/17 09:26 PT 14.3 SECONDS (9.7-12.2) H 06/09/17 06:24 INR 1.3 06/09/17 06:24 APTT 27 SECONDS (21-34) 06/09/17 06:24 - Constitutional Appears: In Acute Distress, Chronically Ill - Head Exam Head Exam: ATRAUMATIC, NORMOCEPHALIC - Eye Exam Eye Exam: EOMI - ENT Exam ENT Exam: Mucous Membranes Moist - Respiratory Exam Respiratory Exam: Decreased Breath Sounds, Rales, Respiratory Distress ( tachypnic) - Cardiovascular Exam Cardiovascular Exam: Tachycardia, +S1 - GI/Abdominal Exam GI & Abdominal Exam: Soft. absent: Distended, Firm, Guarding, Rigid, Tenderness - Extremities Exam Extremities Exam: absent: Calf Tenderness, Pedal Edema - Neurological Exam Neurological Exam: Altered (very lethargic. Not alert, difficult to arouse.) - Skin Skin Exam: Dry, Warm Additional comments: scattered ecchymosis throughout. L IJ permacath. R arm AVF - weak thrill. Assessment and Plan - Assessment and Plan (Free Text) Plan: PROCESS DEVELOPMENT ENGINEER was called on patient today for hypotension post dialysis (took off 3.5 liters). Vital signs BP 78/49, HR 128, temp 97.9, BS 144. Patient appeared very lethargic and was not responding to commands. She was difficult to arouse which was new for this patient. She is breathing fast but oxygen sat stayed in the 95- 98% range throughout rapid. Patient given a liter bolus of NS, albumin and placed on BiPap at 12 and 6. ICU was called to evaluate the patient and accepted patient to be transferred. Patient escorted down to ICU bed 1. CEZAR (acute kidney injury) --> CKD Nephrology Consult, Dr. Anderson Patient developed acute renal failure Patient is currently on hemodialysis - MWF * Dr. Tristan consulted for Perma Cath placement;placed; patient received dialysis on 06/13 Renal US 06/11/17 - limited study due to patient's body habitus. No calculus or hydronephrosis identified b/l. Probable right renal cortical cyst measures approximately 0.7 x 0.4 x 0.8 cm Successful AVF on 06/15/17 - bruit is present in right arm. Currently on HD MWF S/P LEFT PERMACATH on 06/18/17 - dialysis today Atrial fibrillation, new onset Rate controlled - Diltiazem 30mg PO Q6H Not on anticoagulation because of anemia and ecchymosis patient will need cardiology f/u on discharge On Ferrous Sulfate 325mg PO daily for Anemia CHF (congestive heart failure); diastolic dysfunction with preserved EF CXR 06/09 : stable cardiomegaly, small bilateral pleural effusions noted EF 57.8% Cont to monitor on Lasix PRN HTN Diltiazem 30mg PO Q6H Sacral Decubitus Ulcer - stage 2 Located on the right upper buttocks Started on Aloe Kane lotion TID Turn pt every 2 hours Pneumonia; resolved Patient was treated with Zosyn. Completeled treatment and is currently off all antibiotics now. Acute respiratory failure with hypoxia and hypercapnia; resolved Patient was intubated and extubated twice. Now patient is monitored on oxygen by nasal cannula. Respiratory status stable. Continue to monitor. COPD exacerbation; resolved Pulmonology Consult, Dr. Camejo Continue nebulizing treatment. s/p extubation twice Abnormal RBCs Hematology Oncology consulted, Dr. Mills Breast Rash - Resolved Nystatin topical powder discontinued - completed treatment - 14 days total Prophylactic measure Heparin SC 5000 Q12 Protonix 40 mg PO daily Patient has been accepted to [facility]. She has also been accepted at [facility] for outpatient dialysis. Case discussed with Dr. Susannah Sharma PGY1 <Pawan Davalos - Last Filed: 06/24/17 16:57> Objective - Vital Signs/Intake and Output Vital Signs (last 24 hours): Temp Pulse Resp BP Pulse Ox 98.2 F 102 H 25 H 90/43 L 99 06/24/17 14:46 06/24/17 14:46 06/24/17 14:40 06/24/17 16:46 06/24/17 14:46 Intake and Output: 06/24/17 06/24/17 06:59 18:59 Intake Total 200 180 Output Total 0 Balance 200 180 - Medications Medications: Current Medications Aspirin (Aspirin Chewable) 81 mg PO DAILY [facility] Last Admin: 06/24/17 16:26 Dose: 81 mg Calcium Acetate (Phoslo) 667 mg PO TIDCC [facility] Last Admin: 06/24/17 16:26 Dose: 667 mg Ferrous Sulfate (Feosol) 325 mg PO DAILY [facility] Last Admin: 06/24/17 10:38 Dose: 325 mg Heparin Sodium (Porcine) (Heparin) 5,000 units SC Q12 [facility] Last Admin: 06/24/17 10:38 Dose: 5,000 units Cefepime HCl (Maxipime Iv 1 Gm Premix) 1 gm in 50 mls @ 100 mls/hr IVPB Q24H [facility] Metoprolol Succinate (Toprol Xl) 12.5 mg PO DAILY [facility] Last Admin: 06/22/17 10:49 Dose: Not Given Ondansetron HCl (Zofran Inj) 4 mg IVP Q6H PRN PRN Reason: Nausea/Vomiting Last Admin: 06/20/17 21:00 Dose: 4 mg Pantoprazole Sodium (Protonix Ec Tab) 40 mg PO DAILY [facility] Last Admin: 06/24/17 10:37 Dose: 40 mg - Labs Labs: 06/24/17 06:15 06/24/17 07:10 PT 14.3 SECONDS (9.7-12.2) H 06/09/17 06:24 INR 1.3 06/09/17 06:24 APTT 27 SECONDS (21-34) 06/09/17 06:24 Attending/Attestation - Attestation I have personally seen and examined this patient.: Yes I have fully participated in the care of the patient.: Yes I have reviewed all pertinent clinical information, including history, physical exam and plan: Yes Notes (Text): Acute Change in MS Acute Hypotension post HD Acute respiratory distress Acute hypercapnic resp failure Poor prognoiss third time she with hypercapnea family deciding re code status they are awaiting her other son
[2017-06-23 06:53] LABS: BASO # 0.1 K/uL (0.0-0.2); BASO % 0.4 % (0.0-2.0); EOS # 0.1 K/uL (0.0-0.7); EOS % 0.5 % (0.0-4.0); HEMATOCRIT 36.4 % (34.0-47.0); LYMPH # 2.7 K/uL (1.0-4.3); LYMPH % 21.4 % (20.0-40.0); MEAN CELL VOLUME 100.5 fL (81.0-99.0); MEAN CORPUSCULAR HEMOGLOBIN 31.3 pg (27.0-31.0); MEAN CORPUSCULAR HGB CONC 31.1 g/dL (33.0-37.0); MEAN PLATELET VOLUME 7.7 fL (7.2-11.7); MONO # 1.6 K/uL (0.0-0.8); MONO % 12.7 % (0.0-10.0); NRBC % 2.5 % (0.0-2.0); PLATELET COUNT 159 K/uL (130-400); RED CELL DISTRIBUTION WIDTH 26.3 % (11.5-14.5); WHITE BLOOD COUNT 12.5 K/uL (4.8-10.8)
[2017-06-23 07:05] LABS: POTASSIUM 4.9 mmol/L (3.6-5.2)
[2017-06-23 07:08] LABS: ALB/GLOB RATIO 0.9 (1.0-2.1); BILIRUBIN,TOTAL 1.9 mg/dL (0.2-1.3); CALCIUM 9.3 mg/dl (8.6-10.4); PHOSPHOROUS 6.4 mg/dL (2.5-4.5); TOTAL PROTEIN 7.8 g/dL (6.3-8.3)
[2017-06-23 07:09] LABS: MAGNESIUM 2.2 mg/dL (1.6-2.3)
--- NOTE | 2017-06-23 09:03 | RAD ---
HISTORY: respiratory distress COMPARISON: Portable chest 06/22/2017. FINDINGS: Total left central venous dialysis catheter unchanged in position. LUNGS: No active pulmonary disease. Improved inspiratory volume. PLEURA: No significant pleural effusion identified, no pneumothorax apparent. CARDIOVASCULAR: Cardiomegaly unchanged. No pulmonary venous congestion appreciated. OSSEOUS STRUCTURES: No significant abnormalities. VISUALIZED UPPER ABDOMEN: Normal. OTHER FINDINGS: None. IMPRESSION: Improved history volume. No acute cardiopulmonary is appreciable. Cardiomegaly appears stable.
[2017-06-23 09:45] LABS: EOSINOPHIL 1 % (0-4); MYELOCYTE 5 % (0-0); NEUTROPHIL 59 % (50-75); NUCLEATED RED BLOOD CELL 10 % (0-0); TOTAL CELLS COUNTED 100
[2017-06-23 09:46] LABS: PROMYELOCYTE 0 % (0-0)
--- NOTE | 2017-06-23 10:01 | CP.CCUPN ---
<Cal Bruner E - Last Filed: 06/23/17 17:43> CCU Subjective - Physician Review Subjective (Free Text): Patient was seen and examined at bedside. Patient seems to be more alert this morning. Patient opened her eyes spontaneously during examination and responds to all stimuli. Patient denies any discomfort. Patient is tolerating soft diet. Critical Care Time Spent (in minutes): 35 CCU Objective - Vital Signs / Intake & Output Vital Signs (Last 4 hours): Vital Signs Temp Pulse Resp BP Pulse Ox 06/23/17 09:01 110 H 24 97/43 L 98 06/23/17 08:03 110 H 06/23/17 08:00 97.4 F L 106 H 17 100 06/23/17 07:53 107 H 24 85/52 L 99 06/23/17 06:53 104 H 20 98/47 L 98 Intake and Output (Last 8hrs): Intake & Output 06/22/17 06/23/17 06/23/17 22:59 06:59 14:59 Intake Total 0 0 Balance 0 0 Weight 234 lb 233 lb Intake: Intake, IV Amount 0 Right Distal Port 0 Internal Jugular Oral 0 0 - Physical Exam Head: Positive for: Atraumatic, Normocephalic Extroacular Muscles: Positive for: EOMI Respiratory/Chest: Positive for: Good Air Exchange, Rales. Negative for: Respiratory Distress, Accessory Muscle Use Cardiovascular: Positive for: Regular Rate and Rhythm, Normal S1, S2 Abdomen: Positive for: Normal Bowel Sounds. Negative for: Tenderness Breast/Axillary: Positive for: Discoloration (ecchymosis left lower breast) Upper Extremity: Positive for: Edema, Swelling, Other (ecchymosis b/l; faint pulses bilaterally). Negative for: Normal Inspection (B/L upper extremities ecchymosis, resolving) Lower Extremity: Positive for: NORMAL PULSES. Negative for: Edema Neurological: Positive for: GCS=15, Other (follows commands) Skin: Positive for: Warm, Other (Ecchymosis on bilateral upper extremities and left lower breast area) Psychiatric: Positive for: Alert - Medications Active Medications: Active Medications Generic Name Dose Route Start Last Admin Trade Name Freq PRN Reason Stop Dose Admin Calcium Acetate 667 mg 06/01/17 17:00 06/22/17 17:10 Phoslo PO Not Given TIDCC ALISA Epoetin Ken 10,000 unit 06/12/17 12:15 06/22/17 09:51 Procrit IV 10,000 unit MWF ALISA Administration Ferrous Sulfate 325 mg 06/17/17 10:00 06/22/17 10:47 Feosol PO Not Given DAILY ALISA Heparin Sodium (Porcine) 5,000 units 06/22/17 22:00 06/22/17 22:00 Heparin SC 5,000 units Q12 ALISA Administration Metoprolol Succinate 12.5 mg 06/18/17 10:00 06/22/17 10:49 Toprol Xl PO Not Given DAILY ALISA Ondansetron HCl 4 mg 06/15/17 13:57 06/20/17 21:00 Zofran Inj IVP 4 mg Q6H PRN Administration Nausea/Vomiting Pantoprazole Sodium 40 mg 06/17/17 10:00 06/22/17 10:48 Protonix Ec Tab PO Not Given DAILY [facility] - Patient Studies Lab Studies: Lab Studies 06/23/17 06/23/17 06/22/17 Range/Units 06:45 06:45 13:57 WBC 12.5 H (4.8-10.8) K/uL RBC 3.62 L (3.80-5.20) Mil/uL Hgb 11.3 (11.0-16.0) g/dL Hct 36.4 (34.0-47.0) % MCV 100.5 H (81.0-99.0) fL MCH 31.3 H (27.0-31.0) pg MCHC 31.1 L (33.0-37.0) g/dL RDW 26.3 H (11.5-14.5) % Plt Count 159 (130-400) K/uL MPV 7.7 (7.2-11.7) fL Neut % (Auto) 65.0 (50.0-75.0) % Lymph % (Auto) 21.4 (20.0-40.0) % [place] % (Auto) 12.7 H (0.0-10.0) % Eos % (Auto) 0.5 (0.0-4.0) % Baso % (Auto) 0.4 (0.0-2.0) % Neut # 8.1 H (1.8-7.0) K/uL Lymph # 2.7 (1.0-4.3) K/uL [place] # 1.6 H (0.0-0.8) K/uL Eos # 0.1 (0.0-0.7) K/uL Baso # 0.1 (0.0-0.2) K/uL Neutrophils % (Manual) 59 (50-75) % Band Neutrophils % 7 H (0-2) % Lymphocytes % (Manual) 16 L (20-40) % Monocytes % (Manual) 12 H (0-10) % Eosinophils % (Manual) 1 (0-4) % Myelocytes % 5 H (0-0) % Promyelocytes % 0 (0-0) % Nucleated RBC % 10 H (0-0) % Toxic Granulation Present Platelet Estimate Normal (NORMAL) Polychromasia Slight Hypochromasia (manual) Slight Poikilocytosis (manual Slight Anisocytosis (manual) Slight Macrocytosis (manual) Slight Tear Drop Cells Slight Puncture Site Lra pCO2 55 H (35-45) mm/Hg pO2 61 L (80-100) mm/Hg HCO3 26.2 (21-28) mmol/L ABG pH 7.33 L (7.35-7.45) ABG Total CO2 30.7 H (22-28) mmol/L ABG O2 Saturation 94.1 L (95-98) % ABG Base Excess 1.9 (-2.0-3.0) mmol/L Sj Test Pos ABG Potassium 3.5 L (3.6-5.2) mmol/L Sodium 137 141.0 (132-148) mmol/l Chloride 97 L 105.0 (98-107) mmol/L Glucose 132 H (65-105) mg/dl Lactate 2.3 H (0.7-2.1) mmol/L Potassium 4.9 (3.6-5.2) mmol/L Carbon Dioxide 24 (22-30) mmol/L Anion Gap 21 H (10-20) BUN 44 H (7-17) mg/dL POC Glucose (mg/dL) (65-110) mg/dL Random Glucose 84 (65-105) mg/dL Calcium 9.3 (8.6-10.4) mg/dl Phosphorus 6.4 H (2.5-4.5) mg/dL Magnesium 2.2 (1.6-2.3) mg/dL Total Bilirubin 1.9 H (0.2-1.3) mg/dL AST 53 H D (14-36) U/L ALT 15 (9-52) U/L Alkaline Phosphatase 77 (38-126) U/L Total Protein 7.8 (6.3-8.3) g/dL Albumin 3.7 (3.5-5.0) g/dL Globulin 4.1 H (2.2-3.9) gm/dL Albumin/Globulin Ratio 0.9 L (1.0-2.1) Arterial Blood Potassium 3.5 L (3.6-5.2) mmol/L 06/22/17 Range/Units 13:31 WBC (4.8-10.8) K/uL RBC (3.80-5.20) Mil/uL Hgb (11.0-16.0) g/dL Hct (34.0-47.0) % MCV (81.0-99.0) fL MCH (27.0-31.0) pg MCHC (33.0-37.0) g/dL RDW (11.5-14.5) % Plt Count (130-400) K/uL MPV (7.2-11.7) fL Neut % (Auto) (50.0-75.0) % Lymph % (Auto) (20.0-40.0) % [place] % (Auto) (0.0-10.0) % Eos % (Auto) (0.0-4.0) % Baso % (Auto) (0.0-2.0) % Neut # (1.8-7.0) K/uL Lymph # (1.0-4.3) K/uL [place] # (0.0-0.8) K/uL Eos # (0.0-0.7) K/uL Baso # (0.0-0.2) K/uL Neutrophils % (Manual) (50-75) % Band Neutrophils % (0-2) % Lymphocytes % (Manual) (20-40) % Monocytes % (Manual) (0-10) % Eosinophils % (Manual) (0-4) % Myelocytes % (0-0) % Promyelocytes % (0-0) % Nucleated RBC % (0-0) % Toxic Granulation Platelet Estimate (NORMAL) Polychromasia Hypochromasia (manual) Poikilocytosis (manual Anisocytosis (manual) Macrocytosis (manual) Tear Drop Cells Puncture Site pCO2 (35-45) mm/Hg pO2 (80-100) mm/Hg HCO3 (21-28) mmol/L ABG pH (7.35-7.45) ABG Total CO2 (22-28) mmol/L ABG O2 Saturation (95-98) % ABG Base Excess (-2.0-3.0) mmol/L Sj Test ABG Potassium (3.6-5.2) mmol/L Sodium (132-148) mmol/l Chloride (98-107) mmol/L Glucose (65-105) mg/dl Lactate (0.7-2.1) mmol/L Potassium (3.6-5.2) mmol/L Carbon Dioxide (22-30) mmol/L Anion Gap (10-20) BUN (7-17) mg/dL POC Glucose (mg/dL) 144 H (65-110) mg/dL Random Glucose (65-105) mg/dL Calcium (8.6-10.4) mg/dl Phosphorus (2.5-4.5) mg/dL Magnesium (1.6-2.3) mg/dL Total Bilirubin (0.2-1.3) mg/dL AST (14-36) U/L ALT (9-52) U/L Alkaline Phosphatase (38-126) U/L Total Protein (6.3-8.3) g/dL Albumin (3.5-5.0) g/dL Globulin (2.2-3.9) gm/dL Albumin/Globulin Ratio (1.0-2.1) Arterial Blood Potassium (3.6-5.2) mmol/L Laboratory Results - last 24 hr 06/22/17 06/22/17 06/23/17 13:31 13:57 06:45 WBC 12.5 H RBC 3.62 L Hgb 11.3 Hct 36.4 MCV 100.5 H MCH 31.3 H MCHC 31.1 L RDW 26.3 H Plt Count 159 MPV 7.7 Neut % (Auto) 65.0 Lymph % (Auto) 21.4 [place] % (Auto) 12.7 H Eos % (Auto) 0.5 Baso % (Auto) 0.4 Neut # 8.1 H Lymph # 2.7 [place] # 1.6 H Eos # 0.1 Baso # 0.1 Neutrophils % (Manual) 59 Band Neutrophils % 7 H Lymphocytes % (Manual) 16 L Monocytes % (Manual) 12 H Eosinophils % (Manual) 1 Myelocytes % 5 H Promyelocytes % 0 Nucleated RBC % 10 H Toxic Granulation Present Platelet Estimate Normal Polychromasia Slight Hypochromasia (manual) Slight Poikilocytosis (manual Slight Anisocytosis (manual) Slight Macrocytosis (manual) Slight Tear Drop Cells Slight Puncture Site Lra pCO2 55 H pO2 61 L HCO3 26.2 ABG pH 7.33 L ABG Total CO2 30.7 H ABG O2 Saturation 94.1 L ABG Base Excess 1.9 Sj Test Pos ABG Potassium 3.5 L Sodium 141.0 Chloride 105.0 Glucose 132 H Lactate 2.3 H Potassium Carbon Dioxide Anion Gap BUN POC Glucose (mg/dL) 144 H Random Glucose Calcium Phosphorus Magnesium Total Bilirubin AST ALT Alkaline Phosphatase Total Protein Albumin Globulin Albumin/Globulin Ratio Arterial Blood Potassium 3.5 L 06/23/17 06:45 WBC RBC Hgb Hct MCV MCH MCHC RDW Plt Count MPV Neut % (Auto) Lymph % (Auto) [place] % (Auto) Eos % (Auto) Baso % (Auto) Neut # Lymph # [place] # Eos # Baso # Neutrophils % (Manual) Band Neutrophils % Lymphocytes % (Manual) Monocytes % (Manual) Eosinophils % (Manual) Myelocytes % Promyelocytes % Nucleated RBC % Toxic Granulation Platelet Estimate Polychromasia Hypochromasia (manual) Poikilocytosis (manual Anisocytosis (manual) Macrocytosis (manual) Tear Drop Cells Puncture Site pCO2 pO2 HCO3 ABG pH ABG Total CO2 ABG O2 Saturation ABG Base Excess Sj Test ABG Potassium Sodium 137 Chloride 97 L Glucose Lactate Potassium 4.9 Carbon Dioxide 24 Anion Gap 21 H BUN 44 H POC Glucose (mg/dL) Random Glucose 84 Calcium 9.3 Phosphorus 6.4 H Magnesium 2.2 Total Bilirubin 1.9 H AST 53 H D ALT 15 Alkaline Phosphatase 77 Total Protein 7.8 Albumin 3.7 Globulin 4.1 H Albumin/Globulin Ratio 0.9 L Arterial Blood Potassium Review of Systems - Constitutional Constitutional: absent: Fever, Chills, Weakness - EENT Eyes: absent: Change in Vision Ears: absent: Dizziness - Cardiovascular Cardiovascular: absent: Chest Pain, Diaphoresis, Dyspnea, Palpitations - Respiratory Respiratory: absent: Dyspnea - Gastrointestinal Gastrointestinal: absent: Abdominal Pain, Nausea - Neurological Neurological: absent: Dizziness, Weakness - Endocrine Endocrine: absent: Fatigue, Palpitations Critical Care Progress Note - Nutrition Nutrition: Nutrition Category Date Time Status Dysphagia/Modified Consistency Diet [DIET] Diets 06/18/17 Lunch Active Assessment/Plan - Assessment and Plan (Free Text) Assessment: Patient is a 76 year old female with PMH of COPD, Asthma, HTN, Cardiomegaly, Dementia who has had an extensive complicated hospital course. Patient was transfer to the ICU due to hypotension and lethargic s/p HD. Today: Plan: attempting to discuss code status with family members Plan: Neuro: Alert, awake Cardio: Hypotension, Hx of A.fibrillation, Hx of CHF, Medication/Management: * Lopressor 12.5mg PO daily ( Held due to hypotension) Pulm: Hx of respiratory distress Alternating between BIpap and 3L NC Renal: End stage renal disease Medication/Management: * HD on M, W, F * Procrit 10,000 unit with HD * Phoslo 667mg PO TIDCC Heme: Anemia secondary to ESRD Medication/Management: * Feosol 325mg PO daily Prophylaxis: DVT: Heparin SC 5000 Q12 GI: Protonix 40 mg PO daily Zofran 4mg IVP Q6H prn <Joseph Ladd P - Last Filed: 06/30/17 07:57> CCU Objective - Vital Signs / Intake & Output Vital Signs (Last 4 hours): Vital Signs Temp Pulse Resp BP Pulse Ox 06/23/17 13:59 115 H 25 H 98/44 L 06/23/17 12:52 105 H 23 100/54 L 99 06/23/17 12:00 97.6 F 110 H 20 100 06/23/17 11:52 110 H 25 H 93/47 L Intake and Output (Last 8hrs): Intake & Output 06/23/17 06/23/17 06/23/17 06:59 14:59 22:59 Intake Total 0 470 Balance 0 470 Weight 234 lb 233 lb Intake: Oral 0 470 - Medications Active Medications: Active Medications Generic Name Dose Route Start Last Admin Trade Name Freq PRN Reason Stop Dose Admin Calcium Acetate 667 mg 06/01/17 17:00 06/23/17 10:25 Phoslo PO 667 mg TIDCC ALISA Administration Epoetin Ken 10,000 unit 06/12/17 12:15 06/22/17 09:51 Procrit IV 10,000 unit MWF ALISA Administration Ferrous Sulfate 325 mg 06/17/17 10:00 06/23/17 10:32 Feosol PO 325 mg DAILY ALSIA Administration Heparin Sodium (Porcine) 5,000 units 06/22/17 22:00 06/23/17 10:25 Heparin SC 5,000 units Q12 ALISA Administration Metoprolol Succinate 12.5 mg 06/18/17 10:00 06/22/17 10:49 Toprol Xl PO Not Given DAILY ALISA Ondansetron HCl 4 mg 06/15/17 13:57 06/20/17 21:00 Zofran Inj IVP 4 mg Q6H PRN Administration Nausea/Vomiting Pantoprazole Sodium 40 mg 06/17/17 10:00 06/23/17 10:25 Protonix Ec Tab PO 40 mg DAILY ALISA Administration - Patient Studies Lab Studies: Microbiology Studies 06/22/17 12:05 Blood Culture - Preliminary Blood-During Dialysis NO GROWTH AFTER 24 HOURS 06/22/17 11:35 Blood Culture - Preliminary Blood-During Dialysis NO GROWTH AFTER 24 HOURS Lab Studies 06/23/17 06/23/17 06/22/17 Range/Units 06:45 06:45 13:31 WBC 12.5 H (4.8-10.8) K/uL RBC 3.62 L (3.80-5.20) Mil/uL Hgb 11.3 (11.0-16.0) g/dL Hct 36.4 (34.0-47.0) % MCV 100.5 H (81.0-99.0) fL MCH 31.3 H (27.0-31.0) pg MCHC 31.1 L (33.0-37.0) g/dL RDW 26.3 H (11.5-14.5) % Plt Count 159 (130-400) K/uL MPV 7.7 (7.2-11.7) fL Neut % (Auto) 65.0 (50.0-75.0) % Lymph % (Auto) 21.4 (20.0-40.0) % [place] % (Auto) 12.7 H (0.0-10.0) % Eos % (Auto) 0.5 (0.0-4.0) % Baso % (Auto) 0.4 (0.0-2.0) % Neut # 8.1 H (1.8-7.0) K/uL Lymph # 2.7 (1.0-4.3) K/uL [place] # 1.6 H (0.0-0.8) K/uL Eos # 0.1 (0.0-0.7) K/uL Baso # 0.1 (0.0-0.2) K/uL Neutrophils % (Manual) 59 (50-75) % Band Neutrophils % 7 H (0-2) % Lymphocytes % (Manual) 16 L (20-40) % Monocytes % (Manual) 12 H (0-10) % Eosinophils % (Manual) 1 (0-4) % Myelocytes % 5 H (0-0) % Promyelocytes % 0 (0-0) % Nucleated RBC % 10 H (0-0) % Toxic Granulation Present Platelet Estimate Normal (NORMAL) Polychromasia Slight Hypochromasia (manual) Slight Poikilocytosis (manual Slight Anisocytosis (manual) Slight Macrocytosis (manual) Slight Tear Drop Cells Slight Sodium 137 (132-148) mmol/L Potassium 4.9 (3.6-5.2) mmol/L Chloride 97 L (98-107) mmol/L Carbon Dioxide 24 (22-30) mmol/L Anion Gap 21 H (10-20) BUN 44 H (7-17) mg/dL Creatinine 3.8 H (0.7-1.2) mg/dL Est GFR ( Amer) 14 Est GFR (Non-Af Amer) 11 POC Glucose (mg/dL) 144 H (65-110) mg/dL Random Glucose 84 (65-105) mg/dL Calcium 9.3 (8.6-10.4) mg/dl Phosphorus 6.4 H (2.5-4.5) mg/dL Magnesium 2.2 (1.6-2.3) mg/dL Total Bilirubin 1.9 H (0.2-1.3) mg/dL AST 53 H D (14-36) U/L ALT 15 (9-52) U/L Alkaline Phosphatase 77 (38-126) U/L Total Protein 7.8 (6.3-8.3) g/dL Albumin 3.7 (3.5-5.0) g/dL Globulin 4.1 H (2.2-3.9) gm/dL Albumin/Globulin Ratio 0.9 L (1.0-2.1) Laboratory Results - last 24 hr 06/22/17 06/23/17 06/23/17 13:31 06:45 06:45 WBC 12.5 H RBC 3.62 L Hgb 11.3 Hct 36.4 MCV 100.5 H MCH 31.3 H MCHC 31.1 L RDW 26.3 H Plt Count 159 MPV 7.7 Neut % (Auto) 65.0 Lymph % (Auto) 21.4 [place] % (Auto) 12.7 H Eos % (Auto) 0.5 Baso % (Auto) 0.4 Neut # 8.1 H Lymph # 2.7 [place] # 1.6 H Eos # 0.1 Baso # 0.1 Neutrophils % (Manual) 59 Band Neutrophils % 7 H Lymphocytes % (Manual) 16 L Monocytes % (Manual) 12 H Eosinophils % (Manual) 1 Myelocytes % 5 H Promyelocytes % 0 Nucleated RBC % 10 H Toxic Granulation Present Platelet Estimate Normal Polychromasia Slight Hypochromasia (manual) Slight Poikilocytosis (manual Slight Anisocytosis (manual) Slight Macrocytosis (manual) Slight Tear Drop Cells Slight Sodium 137 Potassium 4.9 Chloride 97 L Carbon Dioxide 24 Anion Gap 21 H BUN 44 H Creatinine 3.8 H Est GFR ( Amer) 14 Est GFR (Non-Af Amer) 11 POC Glucose (mg/dL) 144 H Random Glucose 84 Calcium 9.3 Phosphorus 6.4 H Magnesium 2.2 Total Bilirubin 1.9 H AST 53 H D ALT 15 Alkaline Phosphatase 77 Total Protein 7.8 Albumin 3.7 Globulin 4.1 H Albumin/Globulin Ratio 0.9 L Critical Care Progress Note - Nutrition Nutrition: Nutrition Category Date Time Status Dysphagia/Modified Consistency Diet [DIET] Diets 06/18/17 Lunch Active Attending/Attestation - Attestation I have personally seen and examined this patient.: Yes I have fully participated in the care of the patient.: Yes I have reviewed all pertinent clinical information: Yes Notes (Text): No events patient is awake but appears tired, had her food, some cough noticed post breakfast. VS maintained including pulse, bp, afebrile, maintained saturations. Chest Clear b/l CVS Irregular, no gallop or rub PA soft, obese, nt Ext no edema, right arm fistula surg, Skin upper ext ecchymosis noticed HAND TRIMMER moving all limbs, tracks, but does not communicate well Assessment/Plan Afib rvr, post hd yesterday now vs signs controlled On HD post CEZAR in hospital H/o resp failure from CHF/PNA with intubation and extubation needing intermittent bipap Some cough post breakfast today will do swallow eval Patient is off abx GI prophylaxis DVT prophylaxis with heparin subq Supportive care Currently family is unsure about code status and remains full code for now.
[2017-06-23] MEDS: Pantoprazole 40 mg EC Tab PO SCH (10:25)
--- NOTE | 2017-06-23 12:16 | CP.PCM.PN ---
Subjective - Date & Time of Evaluation Date of Evaluation: 06/23/17 Time of Evaluation: 12:15 - Subjective Subjective: seen and examined events noted. hypotensive post hd, transferred to icu pt is non verbal, cannot obtain ros no distress, on nasal cannula. SBP 90s Objective - Vital Signs/Intake and Output Vital Signs (last 24 hours): Temp Pulse Resp BP Pulse Ox 97.4 F L 116 H 22 92/45 L 98 06/23/17 08:00 06/23/17 09:52 06/23/17 09:52 06/23/17 09:52 06/23/17 09:52 Intake and Output: 06/23/17 06/23/17 06:59 18:59 Intake Total 0 Balance 0 - Medications Medications: Current Medications Calcium Acetate (Phoslo) 667 mg PO TIDCC [facility] Last Admin: 06/23/17 10:25 Dose: 667 mg Epoetin Ken (Procrit) 10,000 unit IV MWF [facility] Last Admin: 06/22/17 09:51 Dose: 10,000 unit Ferrous Sulfate (Feosol) 325 mg PO DAILY [facility] Last Admin: 06/23/17 10:32 Dose: 325 mg Heparin Sodium (Porcine) (Heparin) 5,000 units SC Q12 [facility] Last Admin: 06/23/17 10:25 Dose: 5,000 units Metoprolol Succinate (Toprol Xl) 12.5 mg PO DAILY [facility] Last Admin: 06/22/17 10:49 Dose: Not Given Ondansetron HCl (Zofran Inj) 4 mg IVP Q6H PRN PRN Reason: Nausea/Vomiting Last Admin: 06/20/17 21:00 Dose: 4 mg Pantoprazole Sodium (Protonix Ec Tab) 40 mg PO DAILY [facility] Last Admin: 06/23/17 10:25 Dose: 40 mg - Labs Labs: 06/23/17 06:45 06/23/17 06:45 PT 14.3 SECONDS (9.7-12.2) H 06/09/17 06:24 INR 1.3 06/09/17 06:24 APTT 27 SECONDS (21-34) 06/09/17 06:24 - Constitutional Appears: Non-toxic, No Acute Distress, Older Than Stated Age, Chronically Ill - Head Exam Head Exam: NORMAL INSPECTION - Eye Exam Eye Exam: Normal appearance - ENT Exam ENT Exam: Mucous Membranes Dry - Neck Exam Neck Exam: Normal Inspection - Respiratory Exam Respiratory Exam: Decreased Breath Sounds, NORMAL BREATHING PATTERN - Cardiovascular Exam Cardiovascular Exam: Tachycardia, Irregular Rhythm - GI/Abdominal Exam GI & Abdominal Exam: Distended, Soft - Extremities Exam Extremities Exam: Pedal Edema Assessment and Plan (1) CEZAR (acute kidney injury) Status: Acute (2) Acute respiratory failure Status: Acute (3) Atrial fibrillation, new onset Status: Acute (4) COPD exacerbation Status: Acute (5) Change in mental state Status: Acute (6) Elevated WBCs Status: Acute - Assessment and Plan (Free Text) Assessment: follow blood cultures supportive care evaluate for need for hd tomorrow, if hemodynamically stable
--- NOTE | 2017-06-23 22:42 | CP.PCM.PN ---
Subjective - Date & Time of Evaluation Date of Evaluation: 06/23/17 Time of Evaluation: 08:05 - Subjective Subjective: Patient seen and evaluated Denies chest pain and dyspnea Comfortable Objective - Vital Signs/Intake and Output Vital Signs (last 24 hours): Temp Pulse Resp BP Pulse Ox 98.1 F 114 H 21 88/51 L 100 06/23/17 16:00 06/23/17 21:52 06/23/17 21:52 06/23/17 21:52 06/23/17 19:52 Intake and Output: 06/23/17 06/24/17 18:59 06:59 Intake Total 470 0 Balance 470 0 - Medications Medications: Current Medications Calcium Acetate (Phoslo) 667 mg PO TIDCC [facility] Last Admin: 06/23/17 16:19 Dose: 667 mg Epoetin Ken (Procrit) 10,000 unit IV MWF [facility] Last Admin: 06/22/17 09:51 Dose: 10,000 unit Ferrous Sulfate (Feosol) 325 mg PO DAILY [facility] Last Admin: 06/23/17 10:32 Dose: 325 mg Heparin Sodium (Porcine) (Heparin) 5,000 units SC Q12 [facility] Last Admin: 06/23/17 10:25 Dose: 5,000 units Metoprolol Succinate (Toprol Xl) 12.5 mg PO DAILY [facility] Last Admin: 06/22/17 10:49 Dose: Not Given Ondansetron HCl (Zofran Inj) 4 mg IVP Q6H PRN PRN Reason: Nausea/Vomiting Last Admin: 06/20/17 21:00 Dose: 4 mg Pantoprazole Sodium (Protonix Ec Tab) 40 mg PO DAILY [facility] Last Admin: 06/23/17 10:25 Dose: 40 mg - Labs Labs: 06/23/17 06:45 06/23/17 06:45 PT 14.3 SECONDS (9.7-12.2) H 06/09/17 06:24 INR 1.3 06/09/17 06:24 APTT 27 SECONDS (21-34) 06/09/17 06:24
[2017-06-24 06:38] LABS: BASO # 0.1 K/uL (0.0-0.2); BASO % 0.5 % (0.0-2.0); EOS # 0.1 K/uL (0.0-0.7); EOS % 0.5 % (0.0-4.0); HEMATOCRIT 37.8 % (34.0-47.0); LYMPH # 2.9 K/uL (1.0-4.3); LYMPH % 22.1 % (20.0-40.0); MEAN CELL VOLUME 100.5 fL (81.0-99.0); MEAN CORPUSCULAR HEMOGLOBIN 31.8 pg (27.0-31.0); MEAN CORPUSCULAR HGB CONC 31.7 g/dL (33.0-37.0); MONO # 1.5 K/uL (0.0-0.8); MONO % 11.7 % (0.0-10.0); NRBC % 3.2 % (0.0-2.0); RED CELL DISTRIBUTION WIDTH 26.1 % (11.5-14.5); WHITE BLOOD COUNT 13.1 K/uL (4.8-10.8)
[2017-06-24 07:46] LABS: ALB/GLOB RATIO 1.1 (1.0-2.1); BILIRUBIN,TOTAL 1.7 mg/dL (0.2-1.3); TOTAL PROTEIN 7.4 g/dL (6.3-8.3)
[2017-06-24 07:47] LABS: CALCIUM 9.1 mg/dl (8.6-10.4)
[2017-06-24 09:21] LABS: MAGNESIUM 2.3 mg/dL (1.6-2.3)
[2017-06-24] MEDS: Pantoprazole 40 mg EC Tab PO SCH (10:37)
--- NOTE | 2017-06-24 10:39 | CP.CCUPN ---
<Cal Bruner E - Last Filed: 06/24/17 11:02> CCU Subjective - Physician Review Subjective (Free Text): Patient was seen and examined at bedside. Patient is very alert and awake. Patient opened her eyes spontaneously during examination and responds to all stimuli. Patient does not speak, therefore ROS is unattainable. = CCU Objective - Vital Signs / Intake & Output Vital Signs (Last 4 hours): Vital Signs Pulse Resp BP Pulse Ox 06/24/17 07:52 103 H 18 95/45 L 95 06/24/17 07:00 122 H 22 94 L Intake and Output (Last 8hrs): Intake & Output 06/23/17 06/24/17 06/24/17 22:59 06:59 14:59 Intake Total 200 0 Balance 200 0 Weight 237 lb Intake: Oral 200 0 - Physical Exam Head: Positive for: Atraumatic, Normocephalic Extroacular Muscles: Positive for: EOMI Mouth: Positive for: Moist Mucous Membranes Respiratory/Chest: Positive for: Good Air Exchange, Rales, Other (Patient is on 3L NC ). Negative for: Respiratory Distress, Accessory Muscle Use Cardiovascular: Positive for: Regular Rate and Rhythm, Normal S1, S2 Abdomen: Positive for: Normal Bowel Sounds. Negative for: Tenderness Upper Extremity: Positive for: Other (Moderate Ecchymosis noted bilaterally ). Negative for: Normal Inspection Lower Extremity: Negative for: Edema, Tenderness, Swelling Neurological: Positive for: Other (follows commands) Skin: Positive for: Warm Psychiatric: Positive for: Alert - Medications Active Medications: Active Medications Generic Name Dose Route Start Last Admin Trade Name Ovidioq PRN Reason Stop Dose Admin Calcium Acetate 667 mg 06/01/17 17:00 06/24/17 08:02 Phoslo PO 667 mg TIDCC ALISA Administration Epoetin Ken 10,000 unit 06/12/17 12:15 06/22/17 09:51 Procrit IV 10,000 unit MWF ALISA Administration Ferrous Sulfate 325 mg 06/17/17 10:00 06/23/17 10:32 Feosol PO 325 mg DAILY ALISA Administration Heparin Sodium (Porcine) 5,000 units 06/22/17 22:00 06/23/17 23:04 Heparin SC 5,000 units Q12 ALISA Administration Metoprolol Succinate 12.5 mg 06/18/17 10:00 06/22/17 10:49 Toprol Xl PO Not Given DAILY ALISA Ondansetron HCl 4 mg 06/15/17 13:57 06/20/17 21:00 Zofran Inj IVP 4 mg Q6H PRN Administration Nausea/Vomiting Pantoprazole Sodium 40 mg 06/17/17 10:00 06/23/17 10:25 Protonix Ec Tab PO 40 mg DAILY ALISA Administration - Patient Studies Lab Studies: Microbiology Studies 06/22/17 18:21 MRSA Culture (Admit) - Final Naris MRSA NOT DETECTED 06/22/17 12:05 Blood Culture - Preliminary Blood-During Dialysis NO GROWTH AFTER 24 HOURS 06/22/17 11:35 Blood Culture - Preliminary Blood-During Dialysis NO GROWTH AFTER 24 HOURS Lab Studies 06/24/17 06/24/17 06/24/17 Range/Units 09:28 07:10 06:15 WBC 13.1 H (4.8-10.8) K/uL RBC 3.76 L (3.80-5.20) Mil/uL Hgb 12.0 (11.0-16.0) g/dL Hct 37.8 (34.0-47.0) % MCV 100.5 H (81.0-99.0) fL MCH 31.8 H (27.0-31.0) pg MCHC 31.7 L (33.0-37.0) g/dL RDW 26.1 H (11.5-14.5) % Plt Count 149 (130-400) K/uL MPV 8.0 (7.2-11.7) fL Neut % (Auto) 65.2 (50.0-75.0) % Lymph % (Auto) 22.1 (20.0-40.0) % Moore % (Auto) 11.7 H (0.0-10.0) % Eos % (Auto) 0.5 (0.0-4.0) % Baso % (Auto) 0.5 (0.0-2.0) % Neut # 8.6 H (1.8-7.0) K/uL Lymph # 2.9 (1.0-4.3) K/uL Moore # 1.5 H (0.0-0.8) K/uL Eos # 0.1 (0.0-0.7) K/uL Baso # 0.1 (0.0-0.2) K/uL Sodium 136 (132-148) mmol/L Potassium 5.0 (3.6-5.2) mmol/L Chloride 96 L (98-107) mmol/L Carbon Dioxide 24 (22-30) mmol/L Anion Gap 21 H (10-20) BUN 68 H (7-17) mg/dL Creatinine 5.4 H (0.7-1.2) mg/dL Est GFR ( Amer) 9 Est GFR (Non-Af Amer) 8 Random Glucose 98 (65-105) mg/dL Lactic Acid 1.8 (0.7-2.1) mmol/L Calcium 9.1 (8.6-10.4) mg/dl Phosphorus 7.0 H (2.5-4.5) mg/dL Magnesium 2.3 (1.6-2.3) mg/dL Total Bilirubin 1.7 H (0.2-1.3) mg/dL AST 45 H (14-36) U/L ALT 17 (9-52) U/L Alkaline Phosphatase 88 (38-126) U/L Total Protein 7.4 (6.3-8.3) g/dL Albumin 3.9 (3.5-5.0) g/dL Globulin 3.5 (2.2-3.9) gm/dL Albumin/Globulin Ratio 1.1 (1.0-2.1) 06/23/17 Range/Units 06:45 WBC (4.8-10.8) K/uL RBC (3.80-5.20) Mil/uL Hgb (11.0-16.0) g/dL Hct (34.0-47.0) % MCV (81.0-99.0) fL MCH (27.0-31.0) pg MCHC (33.0-37.0) g/dL RDW (11.5-14.5) % Plt Count (130-400) K/uL MPV (7.2-11.7) fL Neut % (Auto) (50.0-75.0) % Lymph % (Auto) (20.0-40.0) % Moore % (Auto) (0.0-10.0) % Eos % (Auto) (0.0-4.0) % Baso % (Auto) (0.0-2.0) % Neut # (1.8-7.0) K/uL Lymph # (1.0-4.3) K/uL Moore # (0.0-0.8) K/uL Eos # (0.0-0.7) K/uL Baso # (0.0-0.2) K/uL Sodium (132-148) mmol/L Potassium (3.6-5.2) mmol/L Chloride (98-107) mmol/L Carbon Dioxide (22-30) mmol/L Anion Gap (10-20) BUN (7-17) mg/dL Creatinine 3.8 H (0.7-1.2) mg/dL Est GFR ( Amer) 14 Est GFR (Non-Af Amer) 11 Random Glucose (65-105) mg/dL Lactic Acid (0.7-2.1) mmol/L Calcium (8.6-10.4) mg/dl Phosphorus (2.5-4.5) mg/dL Magnesium (1.6-2.3) mg/dL Total Bilirubin (0.2-1.3) mg/dL AST (14-36) U/L ALT (9-52) U/L Alkaline Phosphatase (38-126) U/L Total Protein (6.3-8.3) g/dL Albumin (3.5-5.0) g/dL Globulin (2.2-3.9) gm/dL Albumin/Globulin Ratio (1.0-2.1) Laboratory Results - last 24 hr 06/23/17 06/24/17 06/24/17 06:45 06:15 07:10 WBC 13.1 H RBC 3.76 L Hgb 12.0 Hct 37.8 MCV 100.5 H MCH 31.8 H MCHC 31.7 L RDW 26.1 H Plt Count 149 MPV 8.0 Neut % (Auto) 65.2 Lymph % (Auto) 22.1 Moore % (Auto) 11.7 H Eos % (Auto) 0.5 Baso % (Auto) 0.5 Neut # 8.6 H Lymph # 2.9 Moore # 1.5 H Eos # 0.1 Baso # 0.1 Sodium 136 Potassium 5.0 Chloride 96 L Carbon Dioxide 24 Anion Gap 21 H BUN 68 H Creatinine 3.8 H 5.4 H Est GFR ( Amer) 14 9 Est GFR (Non-Af Amer) 11 8 Random Glucose 98 Lactic Acid Calcium 9.1 Phosphorus 7.0 H Magnesium 2.3 Total Bilirubin 1.7 H AST 45 H ALT 17 Alkaline Phosphatase 88 Total Protein 7.4 Albumin 3.9 Globulin 3.5 Albumin/Globulin Ratio 1.1 06/24/17 09:28 WBC RBC Hgb Hct MCV MCH MCHC RDW Plt Count MPV Neut % (Auto) Lymph % (Auto) Moore % (Auto) Eos % (Auto) Baso % (Auto) Neut # Lymph # Moore # Eos # Baso # Sodium Potassium Chloride Carbon Dioxide Anion Gap BUN Creatinine Est GFR ( Amer) Est GFR (Non-Af Amer) Random Glucose Lactic Acid 1.8 Calcium Phosphorus Magnesium Total Bilirubin AST ALT Alkaline Phosphatase Total Protein Albumin Globulin Albumin/Globulin Ratio Review of Systems - Review of Systems Review of Systems: ROS unattainable as patient does not speak Assessment/Plan - Assessment and Plan (Free Text) Assessment: Patient is a 76 year old female with PMH of COPD, Asthma, HTN, Cardiomegaly, Dementia who has had an extensive complicated hospital course. Patient was transfer to the ICU due to hypotension and lethargic s/p HD. Plan: Neuro: Alert, awake Cardio: Hypotension s/p HD, Hx of A.fibrillation, Hx of CHF, Medication/Management: * Lopressor 12.5mg PO daily ( Held due to hypotension) Pulm: Hx of respiratory distress Alternating between BIpap and 3L NC Renal: End stage renal disease Medication/Management: * HD on , W, F * Procrit 10,000 unit with HD * Phoslo 667mg PO TIDCC Heme: Anemia secondary to ESRD Medication/Management: * Feosol 325mg PO daily ID: Leukocytosis, Bands (7) * Blood Culture (No Growth) * Lactate: 1.8 * F/u repeat urine culture * F/u procalcitonin Prophylaxis: DVT: Heparin SC 5000 Q12 GI: Protonix 40 mg PO daily Zofran 4mg IVP Q6H prn NGT placement for nephro tube feeding PT and OT <Toribio Camejo S - Last Filed: 06/24/17 17:29> CCU Objective - Vital Signs / Intake & Output Vital Signs (Last 4 hours): Vital Signs Temp Pulse Pulse Resp BP BP Pulse Ox 06/24/17 17:16 84/45 L 06/24/17 16:46 110 H 22 90/43 L 90/43 L 99 06/24/17 16:32 108 H 16 82/45 L 06/24/17 16:31 124 H 14 79/49 L 100 06/24/17 16:16 111 H 20 90/40 L 90/40 L 99 06/24/17 16:01 108 H 17 92/47 L 99 06/24/17 16:00 98.2 F 112 H 14 99 06/24/17 15:46 113 H 19 98/50 L 92/47 L 98 06/24/17 15:31 116 H 23 101/47 L 98/50 L 98 06/24/17 15:16 115 H 24 98/45 L 101/47 L 98 06/24/17 15:01 117 H 16 92/46 L 98/48 L 97 06/24/17 15:00 113 H 17 98 06/24/17 14:52 106 H 27 H 91/47 L 98 06/24/17 14:46 98.2 F 102 H 92/46 L 99 06/24/17 14:40 98.2 F 102 H 25 H 92/46 L 06/24/17 14:00 112 H 15 98 06/24/17 13:52 115 H 25 H 95/43 L 97 Intake and Output (Last 8hrs): Intake & Output 06/24/17 06/24/17 06/24/17 06:59 14:59 22:59 Intake Total 0 180 50 Output Total 0 0 Balance 0 180 50 Weight 237 lb Intake: Oral 0 10 Tube Feeding 50 50 Other 120 Output: Urine 0 0 Urine, Voided 0 0 Stool 0 Other: # Bowel Movements 1 - Medications Active Medications: Active Medications Generic Name Dose Route Start Last Admin Trade Name Freq PRN Reason Stop Dose Admin Aspirin 81 mg 06/24/17 15:30 06/24/17 16:26 Aspirin Chewable PO 81 mg DAILY ALISA Administration Calcium Acetate 667 mg 06/01/17 17:00 06/24/17 16:26 Phoslo PO 667 mg TIDCC ALISA Administration Ferrous Sulfate 325 mg 06/17/17 10:00 10/11/17 10:38 Feosol PO 325 mg DAILY ALISA Administration Heparin Sodium (Porcine) 5,000 units 06/22/17 22:00 06/24/17 10:38 Heparin SC 5,000 units Q12 ALISA Administration Cefepime HCl 1 gm in 50 mls @ 100 mls/hr 06/24/17 15:00 Maxipime Iv 1 Gm Premix IVPB Q24H ALISA Metoprolol Succinate 12.5 mg 06/18/17 10:00 06/22/17 10:49 Toprol Xl PO Not Given DAILY ALISA Ondansetron HCl 4 mg 06/15/17 13:57 06/20/17 21:00 Zofran Inj IVP 4 mg Q6H PRN Administration Nausea/Vomiting Pantoprazole Sodium 40 mg 06/17/17 10:00 06/24/17 10:37 Protonix Ec Tab PO 40 mg DAILY ALISA Administration - Patient Studies Lab Studies: Microbiology Studies 06/22/17 12:05 Blood Culture - Preliminary Blood-During Dialysis NO GROWTH AFTER 48 HOURS 06/22/17 11:35 Blood Culture - Preliminary Blood-During Dialysis NO GROWTH AFTER 48 HOURS 06/22/17 18:21 MRSA Culture (Admit) - Final Naris MRSA NOT DETECTED Lab Studies 06/24/17 06/24/17 06/24/17 Range/Units 09:28 09:28 07:10 WBC (4.8-10.8) K/uL RBC (3.80-5.20) Mil/uL Hgb (11.0-16.0) g/dL Hct (34.0-47.0) % MCV (81.0-99.0) fL MCH (27.0-31.0) pg MCHC (33.0-37.0) g/dL RDW (11.5-14.5) % Plt Count (130-400) K/uL MPV (7.2-11.7) fL Neut % (Auto) (50.0-75.0) % Lymph % (Auto) (20.0-40.0) % Moore % (Auto) (0.0-10.0) % Eos % (Auto) (0.0-4.0) % Baso % (Auto) (0.0-2.0) % Neut # (1.8-7.0) K/uL Lymph # (1.0-4.3) K/uL Moore # (0.0-0.8) K/uL Eos # (0.0-0.7) K/uL Baso # (0.0-0.2) K/uL Sodium 136 (132-148) mmol/L Potassium 5.0 (3.6-5.2) mmol/L Chloride 96 L (98-107) mmol/L Carbon Dioxide 24 (22-30) mmol/L Anion Gap 21 H (10-20) BUN 68 H (7-17) mg/dL Creatinine 5.4 H (0.7-1.2) mg/dL Est GFR ( Amer) 9 Est GFR (Non-Af Amer) 8 Random Glucose 98 (65-105) mg/dL Lactic Acid 1.8 (0.7-2.1) mmol/L Calcium 9.1 (8.6-10.4) mg/dl Phosphorus 7.0 H (2.5-4.5) mg/dL Magnesium 2.3 (1.6-2.3) mg/dL Total Bilirubin 1.7 H (0.2-1.3) mg/dL AST 45 H (14-36) U/L ALT 17 (9-52) U/L Alkaline Phosphatase 88 (38-126) U/L Total Protein 7.4 (6.3-8.3) g/dL Albumin 3.9 (3.5-5.0) g/dL Globulin 3.5 (2.2-3.9) gm/dL Albumin/Globulin Ratio 1.1 (1.0-2.1) Procalcitonin 4.16 H (0.19-0.49) NG/ML 06/24/17 Range/Units 06:15 WBC 13.1 H (4.8-10.8) K/uL RBC 3.76 L (3.80-5.20) Mil/uL Hgb 12.0 (11.0-16.0) g/dL Hct 37.8 (34.0-47.0) % MCV 100.5 H (81.0-99.0) fL MCH 31.8 H (27.0-31.0) pg MCHC 31.7 L (33.0-37.0) g/dL RDW 26.1 H (11.5-14.5) % Plt Count 149 (130-400) K/uL MPV 8.0 (7.2-11.7) fL Neut % (Auto) 65.2 (50.0-75.0) % Lymph % (Auto) 22.1 (20.0-40.0) % Moore % (Auto) 11.7 H (0.0-10.0) % Eos % (Auto) 0.5 (0.0-4.0) % Baso % (Auto) 0.5 (0.0-2.0) % Neut # 8.6 H (1.8-7.0) K/uL Lymph # 2.9 (1.0-4.3) K/uL Moore # 1.5 H (0.0-0.8) K/uL Eos # 0.1 (0.0-0.7) K/uL Baso # 0.1 (0.0-0.2) K/uL Sodium (132-148) mmol/L Potassium (3.6-5.2) mmol/L Chloride (98-107) mmol/L Carbon Dioxide (22-30) mmol/L Anion Gap (10-20) BUN (7-17) mg/dL Creatinine (0.7-1.2) mg/dL Est GFR ( Amer) Est GFR (Non-Af Amer) Random Glucose (65-105) mg/dL Lactic Acid (0.7-2.1) mmol/L Calcium (8.6-10.4) mg/dl Phosphorus (2.5-4.5) mg/dL Magnesium (1.6-2.3) mg/dL Total Bilirubin (0.2-1.3) mg/dL AST (14-36) U/L ALT (9-52) U/L Alkaline Phosphatase (38-126) U/L Total Protein (6.3-8.3) g/dL Albumin (3.5-5.0) g/dL Globulin (2.2-3.9) gm/dL Albumin/Globulin Ratio (1.0-2.1) Procalcitonin (0.19-0.49) NG/ML Laboratory Results - last 24 hr 10/07/3106/24/17 06/24/17 06:15 07:10 09:28 WBC 13.1 H RBC 3.76 L Hgb 12.0 Hct 37.8 MCV 100.5 H MCH 31.8 H MCHC 31.7 L RDW 26.1 H Plt Count 149 MPV 8.0 Neut % (Auto) 65.2 Lymph % (Auto) 22.1 Moore % (Auto) 11.7 H Eos % (Auto) 0.5 Baso % (Auto) 0.5 Neut # 8.6 H Lymph # 2.9 Moore # 1.5 H Eos # 0.1 Baso # 0.1 Sodium 136 Potassium 5.0 Chloride 96 L Carbon Dioxide 24 Anion Gap 21 H BUN 68 H Creatinine 5.4 H Est GFR ( Amer) 9 Est GFR (Non-Af Amer) 8 Random Glucose 98 Lactic Acid Calcium 9.1 Phosphorus 7.0 H Magnesium 2.3 Total Bilirubin 1.7 H AST 45 H ALT 17 Alkaline Phosphatase 88 Total Protein 7.4 Albumin 3.9 Globulin 3.5 Albumin/Globulin Ratio 1.1 Procalcitonin 4.16 H 06/24/17 09:28 WBC RBC Hgb Hct MCV MCH MCHC RDW Plt Count MPV Neut % (Auto) Lymph % (Auto) Moore % (Auto) Eos % (Auto) Baso % (Auto) Neut # Lymph # Moore # Eos # Baso # Sodium Potassium Chloride Carbon Dioxide Anion Gap BUN Creatinine Est GFR ( Amer) Est GFR (Non-Af Amer) Random Glucose Lactic Acid 1.8 Calcium Phosphorus Magnesium Total Bilirubin AST ALT Alkaline Phosphatase Total Protein Albumin Globulin Albumin/Globulin Ratio Procalcitonin Assessment/Plan (1) Acute respiratory failure with hypoxia and hypercapnia Current Visit: Yes Status: Acute (2) Atrial fibrillation, new onset Current Visit: Yes Status: Acute (3) COPD exacerbation Current Visit: Yes Status: Acute Attending/Attestation - Attestation I have personally seen and examined this patient.: Yes I have fully participated in the care of the patient.: Yes I have reviewed all pertinent clinical information: Yes Notes (Text): 06/24/17 17:27 Patient seen and examined in the intensive care unit. Case discussed with house staff in the morning. Patient transferred to ICU for hypotension and lethargy Response to vocal commands by opening eyes Getting hemodialysis Elevated pro-calcitonin level Antibiotics as per infectious disease Repeat culture and sensitivity
--- NOTE | 2017-06-24 11:22 | CP.PCM.PN ---
<Gena Matthew - Last Filed: 06/24/17 13:04> Subjective - Date & Time of Evaluation Date of Evaluation: 06/24/17 Time of Evaluation: 09:05 - Subjective Subjective: Cardiology Progress Notes- Dr. Hart's service Patient seen and evaluated bedside. Patient minimally responsive. Patient appears quite restless. Patient due for HD today. An ROS could not be obtained at this time due to clinical status. Objective - Vital Signs/Intake and Output Vital Signs (last 24 hours): Temp Pulse Resp BP Pulse Ox 98.5 F 109 H 25 H 99/42 L 92 L 06/24/17 08:00 06/24/17 10:00 06/24/17 10:00 06/24/17 09:52 06/24/17 10:00 Intake and Output: 06/24/17 06/24/17 06:59 18:59 Intake Total 200 130 Output Total 0 Balance 200 130 - Medications Medications: Current Medications Calcium Acetate (Phoslo) 667 mg PO [facility] Last Admin: 06/24/17 08:02 Dose: 667 mg Epoetin Ken (Procrit) 10,000 unit IV [facility]WF [facility] Last Admin: 06/22/17 09:51 Dose: 10,000 unit Ferrous Sulfate (Feosol) 325 mg PO DAILY [facility] Last Admin: 06/24/17 10:38 Dose: 325 mg Heparin Sodium (Porcine) (Heparin) 5,000 units SC Q12 [facility] Last Admin: 06/24/17 10:38 Dose: 5,000 units Metoprolol Succinate (Toprol Xl) 12.5 mg PO DAILY [facility] Last Admin: 06/22/17 10:49 Dose: Not Given Ondansetron HCl (Zofran Inj) 4 mg IVP Q6H PRN PRN Reason: Nausea/Vomiting Last Admin: 06/20/17 21:00 Dose: 4 mg Pantoprazole Sodium (Protonix Ec Tab) 40 mg PO DAILY [facility] Last Admin: 06/24/17 10:37 Dose: 40 mg - Labs Labs: 06/24/17 06:15 06/24/17 07:10 PT 14.3 SECONDS (9.7-12.2) H 06/09/17 06:24 INR 1.3 06/09/17 06:24 APTT 27 SECONDS (21-34) 06/09/17 06:24 - Constitutional Appears: Non-toxic, No Acute Distress - Head Exam Head Exam: ATRAUMATIC, NORMAL INSPECTION, NORMOCEPHALIC - Eye Exam Eye Exam: EOMI, Normal appearance, PERRL Pupil Exam: NORMAL ACCOMODATION, PERRL - ENT Exam ENT Exam: Mucous Membranes Moist - Neck Exam Neck Exam: Full ROM - Respiratory Exam Respiratory Exam: NORMAL BREATHING PATTERN - Cardiovascular Exam Cardiovascular Exam: Irregular Rhythm, +S1, +S2 - GI/Abdominal Exam GI & Abdominal Exam: Soft - Back Exam Back Exam: Full ROM - Neurological Exam Neurological Exam: Alert, Awake, Oriented x3 - Psychiatric Exam Psychiatric exam: Flat Affect - Skin Skin Exam: Dry, Warm Assessment and Plan (1) Atrial fibrillation, new onset Status: Acute (2) CHF (congestive heart failure) Status: Chronic (3) Elevated troponin Status: Acute (4) Prophylactic measure Status: Acute - Assessment and Plan (Free Text) Assessment: Hypotension Assessment & Plan: Patient is hypotensive but stable. Status: Acute Atrial fibrillation Assessment & Plan: Patient is currently off Diltiazem due to hypotension. CHADs Score of 5- Patient off Lovenox due to anemia and ecchymosis. Will need to determine anticoagulation measures. At this time, on DVT prophylaxis solely. Will start ASA On Feosol for Anemia Status: Acute CHF (congestive heart failure) Assessment & Plan: CXR 06/23 : stable cardiomegaly, improved history volume EF 57.8% Cont to monitor on Lasix PRN Status: Acute ESRD on HD MWF Assessment & Plan: Patient to have HD today Recommendations decreased goal due to hypotension Status: Chronic Elevated troponin Assessment & Plan: On admission elevated; likely secondary to then CHF exacerbation Continue to monitor Status: Acute Prophylactic measure Assessment & Plan: Heparin SC 5000 Q12 Protonix 40 mg PO daily Status: Acute Discussed with Dr. Hart. All management and planning per Dr. Hart. <Ish Hart - Last Filed: 06/24/17 22:37> Objective - Vital Signs/Intake and Output Vital Signs (last 24 hours): Temp Pulse Resp BP Pulse Ox 97.6 F 111 H 28 H 103/43 L 99 06/24/17 20:00 06/24/17 17:45 06/24/17 17:45 06/24/17 17:45 06/24/17 17:45 Intake and Output: 06/24/17 06/25/17 18:59 06:59 Intake Total 250 80 Output Total 0 0 Balance 250 80 - Medications Medications: Current Medications Aspirin (Aspirin Chewable) 81 mg PO DAILY [facility] Last Admin: 06/24/17 16:26 Dose: 81 mg Calcium Acetate (Phoslo) 667 mg PO [facility] Last Admin: 06/24/17 16:26 Dose: 667 mg Ferrous Sulfate (Feosol) 325 mg PO DAILY [facility] Last Admin: 06/24/17 10:38 Dose: 325 mg Heparin Sodium (Porcine) (Heparin) 5,000 units SC Q12 [facility] Last Admin: 06/24/17 21:18 Dose: 5,000 units Cefepime HCl (Maxipime Iv 1 Gm Premix) 1 gm in 50 mls @ 100 mls/hr IVPB Q24H [facility] Last Admin: 06/24/17 18:27 Dose: 100 mls/hr Vancomycin HCl 1 gm/ Sodium (Chloride) 250 mls @ 166.7 mls/hr IVPB [facility] [place] Metoprolol Succinate (Toprol Xl) 12.5 mg PO DAILY [facility] Last Admin: 06/22/17 10:49 Dose: Not Given Ondansetron HCl (Zofran Inj) 4 mg IVP Q6H PRN PRN Reason: Nausea/Vomiting Last Admin: 06/20/17 21:00 Dose: 4 mg Pantoprazole Sodium (Protonix Ec Tab) 40 mg PO DAILY [facility] Last Admin: 06/24/17 10:37 Dose: 40 mg - Labs Labs: 06/24/17 06:15 06/24/17 07:10 PT 14.3 SECONDS (9.7-12.2) H 06/09/17 06:24 INR 1.3 06/09/17 06:24 APTT 27 SECONDS (21-34) 06/09/17 06:24 Assessment and Plan - Assessment and Plan (Free Text) Assessment: Patient seen and evaluated with the medical artist Plan of care as documented
--- NOTE | 2017-06-24 15:44 | CP.PCM.PN ---
Subjective - Date & Time of Evaluation Date of Evaluation: 06/23/17 Time of Evaluation: 15:42 - Subjective Subjective: More awake today not able to answer questions Objective - Vital Signs/Intake and Output Vital Signs (last 24 hours): Temp Pulse Resp BP Pulse Ox 98.5 F 109 H 25 H 99/42 L 92 L 06/24/17 08:00 06/24/17 10:00 06/24/17 10:00 06/24/17 09:52 06/24/17 10:00 Intake and Output: 06/24/17 06/24/17 06:59 18:59 Intake Total 200 180 Output Total 0 Balance 200 180 - Medications Medications: Current Medications Aspirin (Aspirin Chewable) 81 mg PO DAILY [facility] Calcium Acetate (Phoslo) 667 mg PO TIDCC [facility] Last Admin: 06/24/17 12:21 Dose: 667 mg Epoetin Ken (Procrit) 10,000 unit IV MWF [facility] Last Admin: 06/22/17 09:51 Dose: 10,000 unit Ferrous Sulfate (Feosol) 325 mg PO DAILY [facility] Last Admin: 06/24/17 10:38 Dose: 325 mg Heparin Sodium (Porcine) (Heparin) 5,000 units SC Q12 [facility] Last Admin: 06/24/17 10:38 Dose: 5,000 units Cefepime HCl (Maxipime Iv 1 Gm Premix) 1 gm in 50 mls @ 100 mls/hr IVPB Q24H [facility] Metoprolol Succinate (Toprol Xl) 12.5 mg PO DAILY [facility] Last Admin: 06/22/17 10:49 Dose: Not Given Ondansetron HCl (Zofran Inj) 4 mg IVP Q6H PRN PRN Reason: Nausea/Vomiting Last Admin: 06/20/17 21:00 Dose: 4 mg Pantoprazole Sodium (Protonix Ec Tab) 40 mg PO DAILY [facility] Last Admin: 06/24/17 10:37 Dose: 40 mg - Labs Labs: 06/24/17 06:15 06/24/17 07:10 PT 14.3 SECONDS (9.7-12.2) H 06/09/17 06:24 INR 1.3 06/09/17 06:24 APTT 27 SECONDS (21-34) 06/09/17 06:24 - Constitutional Appears: Well, Non-toxic, No Acute Distress, Confused - Head Exam Head Exam: ATRAUMATIC - ENT Exam ENT Exam: Mucous Membranes Dry - Respiratory Exam Respiratory Exam: absent: Wheezes, NORMAL BREATHING PATTERN Additional comments: coarse bs - Cardiovascular Exam Cardiovascular Exam: +S1, +S2 - GI/Abdominal Exam GI & Abdominal Exam: Soft. absent: Tenderness Additional comments: obese - Neurological Exam Neurological Exam: Alert, Awake. absent: Oriented x3 - Psychiatric Exam Psychiatric exam: absent: Normal Affect, Normal Mood - Skin Skin Exam: absent: Normal Color (morbid obese ) Assessment and Plan - Assessment and Plan (Free Text) Assessment: change in MS Hypotension post HD Acute repeated (third episode) Hypercapnic resp failure multifactorial copd/ANTHONY/ obesity hypoventilation, moribid obesity restrictive disease ARF on CKD stage 5 on HD Atrial fibrillation, new onset on aspirin Not on anticoagulation because of anemia and ecchymosis CHF (congestive heart failure); diastolic dysfunction with preserved EF HTN Sacral Decubitus Ulcer - stage 2 Pneumonia; resolved Patient was treated with Zosyn. Completeled treatment and is currently off all antibiotics now. Acute respiratory failure with hypoxia and hypercapnia management by ICU was on bipap likely requires this or cpap at night routinely
--- NOTE | 2017-06-24 16:02 | CP.PCM.PN ---
Subjective - Date & Time of Evaluation Date of Evaluation: 06/24/17 Time of Evaluation: 14:15 - Subjective Subjective: nonverbal bp better ng tube in HD today unable to obtain ROS due to above Objective - Vital Signs/Intake and Output Vital Signs (last 24 hours): Temp Pulse Resp BP Pulse Ox 98.2 F 102 H 25 H 92/46 L 92 L 06/24/17 14:40 06/24/17 14:40 06/24/17 14:40 06/24/17 14:40 06/24/17 10:00 Intake and Output: 06/24/17 06/24/17 06:59 18:59 Intake Total 200 180 Output Total 0 Balance 200 180 - Medications Medications: Current Medications Aspirin (Aspirin Chewable) 81 mg PO DAILY [facility] Calcium Acetate (Phoslo) 667 mg PO TIDCC [facility] Last Admin: 06/24/17 12:21 Dose: 667 mg Epoetin Ken (Procrit) 10,000 unit IV MWF [facility] Last Admin: 06/22/17 09:51 Dose: 10,000 unit Ferrous Sulfate (Feosol) 325 mg PO DAILY [facility] Last Admin: 06/24/17 10:38 Dose: 325 mg Heparin Sodium (Porcine) (Heparin) 5,000 units SC Q12 [facility] Last Admin: 06/24/17 10:38 Dose: 5,000 units Cefepime HCl (Maxipime Iv 1 Gm Premix) 1 gm in 50 mls @ 100 mls/hr IVPB Q24H [facility] Metoprolol Succinate (Toprol Xl) 12.5 mg PO DAILY [facility] Last Admin: 06/22/17 10:49 Dose: Not Given Ondansetron HCl (Zofran Inj) 4 mg IVP Q6H PRN PRN Reason: Nausea/Vomiting Last Admin: 06/20/17 21:00 Dose: 4 mg Pantoprazole Sodium (Protonix Ec Tab) 40 mg PO DAILY [facility] Last Admin: 06/24/17 10:37 Dose: 40 mg - Labs Labs: 06/24/17 06:15 06/24/17 07:10 PT 14.3 SECONDS (9.7-12.2) H 06/09/17 06:24 INR 1.3 06/09/17 06:24 APTT 27 SECONDS (21-34) 06/09/17 06:24 - Constitutional Appears: Confused, Chronically Ill - ENT Exam ENT Exam: Mucous Membranes Moist - Neck Exam Neck Exam: Full ROM. absent: Lymphadenopathy - Respiratory Exam Respiratory Exam: Decreased Breath Sounds. absent: Wheezes - Cardiovascular Exam Cardiovascular Exam: REGULAR RHYTHM. absent: Rubs - GI/Abdominal Exam GI & Abdominal Exam: Distended. absent: Tenderness - Extremities Exam Extremities Exam: Pedal Edema Assessment and Plan - Assessment and Plan (Free Text) Assessment: new dialysis aspiration SIRS syndrome OK for HD today monitor catheter, has been working poorly
--- NOTE | 2017-06-24 16:16 | CP.PCM.PN ---
Subjective - Date & Time of Evaluation Date of Evaluation: 06/24/17 Time of Evaluation: 16:16 - Subjective Subjective: confused opens eyes does not follow commands Objective - Vital Signs/Intake and Output Vital Signs (last 24 hours): Temp Pulse Resp BP Pulse Ox 98.2 F 102 H 25 H 98/50 L 99 06/24/17 14:45 06/24/17 14:45 06/24/17 14:40 06/24/17 15:30 06/24/17 14:45 Intake and Output: 06/24/17 06/24/17 06:59 18:59 Intake Total 200 180 Output Total 0 Balance 200 180 - Medications Medications: Current Medications Aspirin (Aspirin Chewable) 81 mg PO DAILY [facility] Calcium Acetate (Phoslo) 667 mg PO TIDCC [facility] Last Admin: 06/24/17 12:21 Dose: 667 mg Epoetin Ken (Procrit) 10,000 unit IV MWF [facility] Last Admin: 06/22/17 09:51 Dose: 10,000 unit Ferrous Sulfate (Feosol) 325 mg PO DAILY [facility] Last Admin: 06/24/17 10:38 Dose: 325 mg Heparin Sodium (Porcine) (Heparin) 5,000 units SC Q12 [facility] Last Admin: 06/24/17 10:38 Dose: 5,000 units Cefepime HCl (Maxipime Iv 1 Gm Premix) 1 gm in 50 mls @ 100 mls/hr IVPB Q24H [facility] Metoprolol Succinate (Toprol Xl) 12.5 mg PO DAILY [facility] Last Admin: 06/22/17 10:49 Dose: Not Given Ondansetron HCl (Zofran Inj) 4 mg IVP Q6H PRN PRN Reason: Nausea/Vomiting Last Admin: 06/20/17 21:00 Dose: 4 mg Pantoprazole Sodium (Protonix Ec Tab) 40 mg PO DAILY [facility] Last Admin: 06/24/17 10:37 Dose: 40 mg - Labs Labs: 06/24/17 06:15 06/24/17 07:10 PT 14.3 SECONDS (9.7-12.2) H 06/09/17 06:24 INR 1.3 06/09/17 06:24 APTT 27 SECONDS (21-34) 06/09/17 06:24 - Constitutional Appears: Well, No Acute Distress - ENT Exam ENT Exam: Mucous Membranes Dry - Respiratory Exam Respiratory Exam: absent: Clear to Ausculation Bilateral Additional comments: corase bs - Cardiovascular Exam Cardiovascular Exam: +S1, +S2. absent: REGULAR RHYTHM - GI/Abdominal Exam GI & Abdominal Exam: Soft, Normal Bowel Sounds. absent: Tenderness Additional comments: obesity - Neurological Exam Neurological Exam: Alert, Awake. 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 Completeled treatment and is currently off all antibiotics now. Acute respiratory failure with hypoxia and hypercapnia management by ICU was on bipap likely requires this or cpap at night routinely
[2017-06-24] MEDS: Epoetin Alfa 10,000 unit/ml Dialysis IV SCH (17:29)
--- NOTE | 2017-06-24 17:31 | CP.PCM.CON ---
History of Present Illness - History of Present Illness History of Present Illness: 76 year old female with PMH of COPD, Asthma, HTN, Cardiomegaly, Dementia who has had an extensive complicated hospital course. Patient was transfer to the ICU due to hypotension and lethargic s/p HD. PMD: Dr Costa PMHx: COPD (2nd hand smoke); asthma; cardiomegaly; dementia PSHx: cataracts; abdominal hernia about 30 years ago; bilateral tubal ligation FamHx: mother, , unspecified; father, from heart issues; son with asthma Allergies: NKDA SocialHx: denies tobacco, denies etoh, denies illicit drug use, lives alone w/ help of home improvement installer Review of Systems - Review of Systems Systems not reviewed;Unavailable: Altered Mental Status All systems: reviewed and no additional remarkable complaints except - Constitutional Constitutional: As Per HPI - EENT Eyes: absent: As Per HPI, Blind Spots, Blurred Vision, Change in Vision, Decreased Night Vision, Diplopia, Discharge, Dry Eye, Exophthalmos, Floaters, Irritation, Itchy Eyes, Loss of Peripheral Vision, Pain, Photophobia, Requires Corrective Lenses, Sees Flashes, Spots in Vision, Tunnel Vision, Other Visual Disturbances, Loss of Vision, Other Ears: absent: As Per HPI, Decreased Hearing, Ear Discharge, Ear Pain, Tinnitus, Abnormal Hearing, Disequilibrium, Dizziness, Other - Breasts Breasts: absent: As Per HPI, Change in Shape, Mass, Pain, Nipple Discharge, Nipple Inversion, Skin Changes, Swelling, Other - Cardiovascular Cardiovascular: absent: As Per HPI, Acrocyanosis, Chest Pain, Chest Pain at Rest , Chest Pain with Activity, Claudication, Diaphoresis, Dyspnea, Dyspnea on Exertion, Edema, Irregular Heart Rhythm, Pain Radiating to Arm/Neck/Jaw, Leg Edema, Leg Ulcers, Lightheadedness, Orthopnea, Palpitations, Paroxysmal Nocturnal Dyspnea, Pedal Edema, Radiating Pain, Rapid Heart Rate, Slow Heart Rate, Syncope, Other - Respiratory Respiratory: absent: As Per HPI, Cough, Dyspnea, Hemoptysis, Dyspnea on Exertion , Wheezing, Snoring, Stridor, Pain on Inspiration, Chest Congestion, Excessive Mucous Production, Change in Mucous Color, Pain with Coughing, Other - Gastrointestinal Gastrointestinal: absent: As Per HPI, Abdominal Pain, Belching, Bloating, Change in Bowel Habits, Change in Stool Character, Coffee Ground Emesis, Constipation, Cramping, Diarrhea, Dyspepsia, Dysphagia, Early Satiety, Excessive Flatus, Fecal Incontinence, Heartburn, Hematemesis, Hematochezia, Loose Stools, Melena, Nausea, Odynophagia, Temesmus, Vomiting, Other - Genitourinary Genitourinary: absent: As Per HPI, Change in Urinary Stream, Difficulty Urinating, Dysuria, Flank Pain, Hematuria, Pyuria, Nocturia, Urinary Incontinence, Urinary Frequency, Urinary Hesitance, Urinary Urgency, Voiding Freq/Small Amts, Freq UTI, Hx Renal/Bladder Calculi, Hx /Renal Surgery, Bladder Distension, Other - Reproductive: Female Reproductive:Female: absent: As Per HPI, Amenorrhea, Amenorrhea/ Control, Currently Menstual, Cycle <21 Days, Cycle >35 Days, Cycle Variable, Menses 1-7 Days, Menses >/= 8 Days, Menses Variable, Cycle > 4 Weeks Between, No Menses for 6 Months, Heavy Menses, Light Menses, Normal Menses, Spotting Between Cycles , S/P Hysterectomy, Menopausal, Post Menopausal, Premenarche, Abnormal Vaginal Bleeding, Dysmenorrhea, Dyspareunia, Genital Lesions, Genital Pruritis, Pelvic Pain, Prolapse Symptoms, Sexual Dysfunction, Vaginal Discharge, Vaginal Dryness , Vaginal Odor, Vaginal Pruritis, Other - Menstruation Menstruation: absent: As Per HPI, Amenorrhea, Amenorrhea/ Control, Currently Menstual, Cycle <21 Days, Cycle >35 Days, Cycle Variable, Menses 1-7 Days, Menses >/= 8 Days, Menses Variable, Cycle > 4 Weeks Between, No Menses for 6 Months, Heavy Menses, Light Menses, Normal Menses, Spotting Between Cycles , S/P Hysterectomy, Menopausal, Post Menopausal, Premenarche, Abnormal Vaginal Bleeding, Dysmenorrhea, Other - Musculoskeletal Musculoskeletal: absent: As Per HPI, Abnormal Gait, Arthralgias, Atrophy, Back Pain, Deformity, Joint Swelling, Limited Range of Motion, Loss of Height, Muscle Cramps, Muscle Weakness, Myalgias, Neck Pain, Numbness, Radiating Pain into Limb, Stiffness, Tingling, Other - Integumentary Integumentary: absent: As Per HPI, Acne, Alopecia, Bleeding Lesions, Change in Hair, Change in Nails, Change in Pigmentation, Changing Lesions, Dry Skin, Erythema, Furuncle, Hirsutism, Lesions, New Lesions, Non-Healing Lesions, Photosensitivity, Pruritus, Rash, Skin Pain, Skin Ulcer, Sores, Striae, Swelling , Unusual Bruising, Wounds, Jaundice, Other - Neurological Neurological: absent: As Per HPI, Abnormal Gait, Abnormal Hearing, Abnormal Movements, Abnormal Speech, Behavioral Changes, Burning Sensations, Confusion, Convulsions, Disequilibrium, Dizziness, Numbness, Focal Weakness, Frequent Falls , Headaches, Lack of Coordination, Loss of Vision, Memory Loss, Paresthesias, Radicular Pain, Restless Legs, Sensory Deficit, Syncope, Tingling, Tremor, Vertigo, Weakness, Other Visual Disturbances, Other - Psychiatric Psychiatric: absent: As Per HPI, Abnormal Sleep Pattern, Anhedonia, Anxiety, Auditory Hallucinations, Behavioral Changes, Change in Appetite, Change in Libido, Confusion, Depression, Difficulty Concentrating, Hallucinations, Homicidal Ideation, Hopelessness, Irritability, Memory Loss, Mood Swings, Panic Attacks, Paranoia, Suicidal Ideation, Visual Hallucinations, Tactile Hallucinations, Other - Endocrine Endocrine: absent: As Per HPI, Change in Body Appearance, Change in Libido, Cold Intolorance, Deepening of Voice, Excessive Sweating, Fatigue, Flushing, Heat Intolorance, Increase in Ring/Shoe/Hat Size, Palpitations, Polydipsia, Polyphagia, Polyuria, Other - Hematologic/Lymphatic Hematologic: absent: As Per HPI, Easy Bleeding, Easy Bruising, Lymphadenopathy, Other Past Patient History - Past Medical History & Family History Past Medical History?: Yes Past Family History: Reviewed and not pertinent - Past Social History Smoking Status: Never Smoked Chewing Tobacco Use: No Cigar Use: No Alcohol: None Home Situation {Lives}: [facility] - CARDIAC Hx Hypertension: Yes - PULMONARY Hx Chronic Obstructive Pulmonary Disease (COPD): Yes - NEUROLOGICAL Hx Dementia: Yes - RENAL Hx Chronic Kidney Disease: No - ENDOCRINE/METABOLIC Hx Endocrine Disorders: No - HEMATOLOGICAL/ONCOLOGICAL Hx Blood Disorders: No - INTEGUMENTARY Hx Dermatological Problems: No - MUSCULOSKELETAL/RHEUMATOLOGICAL Hx Degenerative Joint Disease: Yes Hx Osteoarthritis: Yes - GASTROINTESTINAL Hx Gastrointestinal Disorders: No - GENITOURINARY/GYNECOLOGICAL Hx Genitourinary Disorders: No - PSYCHIATRIC Hx Substance Use: No - SURGICAL HISTORY Hx Surgeries: Yes Hx Cataract Extraction: Yes Hx Herniorrhaphy: Yes (Umbilical) - ANESTHESIA Hx Anesthesia: Yes Hx Anesthesia Reactions: No Meds Allergies/Adverse Reactions: Allergies Allergy/AdvReac Type Severity Reaction Status Date / Time No Known Allergies Allergy Unverified 05/22/17 09:31 - Medications Medications: Current Medications Aspirin (Aspirin Chewable) 81 mg PO DAILY [facility] Last Admin: 06/24/17 16:26 Dose: 81 mg Calcium Acetate (Phoslo) 667 mg PO TIDCC [facility] Last Admin: 06/24/17 16:26 Dose: 667 mg Ferrous Sulfate (Feosol) 325 mg PO DAILY [facility] Last Admin: 06/24/17 10:38 Dose: 325 mg Heparin Sodium (Porcine) (Heparin) 5,000 units SC Q12 [facility] Last Admin: 06/24/17 10:38 Dose: 5,000 units Cefepime HCl (Maxipime Iv 1 Gm Premix) 1 gm in 50 mls @ 100 mls/hr IVPB Q24H [facility] Metoprolol Succinate (Toprol Xl) 12.5 mg PO DAILY [facility] Last Admin: 06/22/17 10:49 Dose: Not Given Ondansetron HCl (Zofran Inj) 4 mg IVP Q6H PRN PRN Reason: Nausea/Vomiting Last Admin: 06/20/17 21:00 Dose: 4 mg Pantoprazole Sodium (Protonix Ec Tab) 40 mg PO DAILY [facility] Last Admin: 06/24/17 10:37 Dose: 40 mg Physical Exam - Constitutional Appears: Confused, Cachectic, Chronically Ill - Head Exam Head Exam: ATRAUMATIC, NORMAL INSPECTION, NORMOCEPHALIC - Eye Exam Eye Exam: PERRL. absent: Scleral icterus - ENT Exam ENT Exam: Mucous Membranes Dry, Normal External Ear Exam - Neck Exam Neck exam: Negative for: Lymphadenopathy - Respiratory Exam Respiratory Exam: Decreased Breath Sounds, Rhonchi - Cardiovascular Exam Cardiovascular Exam: REGULAR RHYTHM, +S1, +S2 - GI/Abdominal Exam GI & Abdominal Exam: Diminished Bowel Sounds, Soft. absent: Tenderness - Rectal Exam Rectal Exam: Deferred - Exam Exam: NORMAL INSPECTION - Extremities Exam Extremities exam: Negative for: pedal edema - Back Exam Back exam: absent: CVA tenderness (L), CVA tenderness (R) - Neurological Exam Neurological exam: Alert, Altered, CN II-XII Intact - Psychiatric Exam Psychiatric exam: Depressed - Skin Skin Exam: Dry Results - Vital Signs Recent Vital Signs: Last Vital Signs Temp 98.2 F 06/24/17 16:00 Pulse 110 H 06/24/17 16:46 Resp 22 06/24/17 16:46 BP 84/45 L 06/24/17 17:16 Pulse Ox 99 06/24/17 16:46 - Labs Result Diagrams: 06/24/17 06:15 06/24/17 07:10 Labs: Laboratory Results - last 24 hr 06/24/17 06/24/17 06/24/17 06:15 07:10 09:28 WBC 13.1 H RBC 3.76 L Hgb 12.0 Hct 37.8 MCV 100.5 H MCH 31.8 H MCHC 31.7 L RDW 26.1 H Plt Count 149 MPV 8.0 Neut % (Auto) 65.2 Lymph % (Auto) 22.1 Harney % (Auto) 11.7 H Eos % (Auto) 0.5 Baso % (Auto) 0.5 Neut # 8.6 H Lymph # 2.9 Harney # 1.5 H Eos # 0.1 Baso # 0.1 Sodium 136 Potassium 5.0 Chloride 96 L Carbon Dioxide 24 Anion Gap 21 H BUN 68 H Creatinine 5.4 H Est GFR ( Amer) 9 Est GFR (Non-Af Amer) 8 Random Glucose 98 Lactic Acid Calcium 9.1 Phosphorus 7.0 H Magnesium 2.3 Total Bilirubin 1.7 H AST 45 H ALT 17 Alkaline Phosphatase 88 Total Protein 7.4 Albumin 3.9 Globulin 3.5 Albumin/Globulin Ratio 1.1 Procalcitonin 4.16 H 06/24/17 09:28 WBC RBC Hgb Hct MCV MCH MCHC RDW Plt Count MPV Neut % (Auto) Lymph % (Auto) Harney % (Auto) Eos % (Auto) Baso % (Auto) Neut # Lymph # Harney # Eos # Baso # Sodium Potassium Chloride Carbon Dioxide Anion Gap BUN Creatinine Est GFR ( Amer) Est GFR (Non-Af Amer) Random Glucose Lactic Acid 1.8 Calcium Phosphorus Magnesium Total Bilirubin AST ALT Alkaline Phosphatase Total Protein Albumin Globulin Albumin/Globulin Ratio Procalcitonin Assessment & Plan - Assessment and Plan (Free Text) Plan: 76 year old female with PMH of COPD, Asthma, HTN, Cardiomegaly, Dementia who has had an extensive complicated hospital course. Patient was transfer to the ICU due to hypotension and lethargic s/p HD. procalcitonin is elevated cultures have been sent empiric iv rx started poor prognosis from outset
[2017-06-24] MEDS: Cefepime IV 1 gm in Dextrose 1 GM/50 ML BAG IVPB SCH (18:27)
[2017-06-25 06:43] LABS: BASO # 0.1 K/uL (0.0-0.2); BASO % 0.5 % (0.0-2.0); EOS # 0.1 K/uL (0.0-0.7); EOS % 0.4 % (0.0-4.0); HEMATOCRIT 35.8 % (34.0-47.0); MEAN CORPUSCULAR HEMOGLOBIN 31.7 pg (27.0-31.0); MEAN CORPUSCULAR HGB CONC 31.4 g/dL (33.0-37.0); MEAN PLATELET VOLUME 8.1 fL (7.2-11.7); MONO # 1.6 K/uL (0.0-0.8); RED CELL DISTRIBUTION WIDTH 26.1 % (11.5-14.5); WHITE BLOOD COUNT 13.1 K/uL (4.8-10.8)
[2017-06-25 07:16] LABS: POTASSIUM 4.4 mmol/L (3.6-5.2)
[2017-06-25 07:18] LABS: ALB/GLOB RATIO 0.9 (1.0-2.1); BILIRUBIN,TOTAL 1.6 mg/dL (0.2-1.3); PHOSPHOROUS 5.6 mg/dL (2.5-4.5); TOTAL PROTEIN 7.3 g/dL (6.3-8.3)
[2017-06-25 07:19] LABS: CALCIUM 9.1 mg/dl (8.6-10.4); MAGNESIUM 2.1 mg/dL (1.6-2.3)
[2017-06-25] MEDS ORDERED: Metoprolol Succinate 12.5 mg XL PO SCH (09:29)
[2017-06-25] MEDS: Pantoprazole 40 mg Susp UD NG SCH (09:40)
[2017-06-25] MEDS: Ferrous Sulfate 300 mg/5 mL Liq UD NG SCH (09:40)
--- NOTE | 2017-06-25 10:09 | CP.PCM.PN ---
Subjective - Date & Time of Evaluation Date of Evaluation: 06/25/17 Time of Evaluation: 10:07 - Subjective Subjective: s/p dialysis 06/24 Same mental status as before Events noted- has baseline hypotension AV access without bruit now Objective - Vital Signs/Intake and Output Vital Signs (last 24 hours): Temp Pulse Resp BP Pulse Ox 98 F 102 H 20 91/37 L 97 06/25/17 08:00 06/25/17 08:31 06/25/17 08:31 06/25/17 08:31 06/25/17 08:00 Intake and Output: 06/25/17 06/25/17 06:59 18:59 Intake Total 240 40 Output Total 0 0 Balance 240 40 - Medications Medications: Current Medications Aspirin (Aspirin Chewable) 81 mg PO DAILY [facility] Last Admin: 06/25/17 09:36 Dose: 81 mg Calcium Acetate (Phoslo) 667 mg PO TIDCC [facility] Last Admin: 06/25/17 08:11 Dose: 667 mg Ferrous Sulfate (Feosol Liq) 300 mg NG DAILY [facility] Last Admin: 06/25/17 09:40 Dose: 300 mg Heparin Sodium (Porcine) (Heparin) 5,000 units SC Q12 [facility] Last Admin: 06/25/17 09:36 Dose: 5,000 units Cefepime HCl (Maxipime Iv 1 Gm Premix) 1 gm in 50 mls @ 100 mls/hr IVPB Q24H [facility] Last Admin: 06/24/17 18:27 Dose: 100 mls/hr Vancomycin HCl 1 gm/ Sodium (Chloride) 250 mls @ 166.7 mls/hr IVPB MWF [facility] Metoprolol Succinate (Toprol Xl) 12.5 mg PO DAILY [facility] Ondansetron HCl (Zofran Inj) 4 mg IVP Q6H PRN PRN Reason: Nausea/Vomiting Last Admin: 06/20/17 21:00 Dose: 4 mg Pantoprazole Sodium (Protonix Susp) 40 mg NG DAILY [facility] Last Admin: 06/25/17 09:40 Dose: 40 mg - Labs Labs: 06/25/17 06:32 06/25/17 06:32 PT 14.3 SECONDS (9.7-12.2) H 06/09/17 06:24 INR 1.3 06/09/17 06:24 APTT 27 SECONDS (21-34) 06/09/17 06:24 - Constitutional Appears: Non-toxic, Chronically Ill - Head Exam Head Exam: ATRAUMATIC, NORMAL INSPECTION - Eye Exam Eye Exam: EOMI, Normal appearance - Neck Exam Neck Exam: Normal Inspection. absent: Tenderness - Respiratory Exam Respiratory Exam: Clear to Ausculation Bilateral, NORMAL BREATHING PATTERN - Cardiovascular Exam Cardiovascular Exam: REGULAR RHYTHM, +S1 - GI/Abdominal Exam GI & Abdominal Exam: Soft. absent: Tenderness - Extremities Exam Extremities Exam: Normal Inspection. absent: Tenderness - Neurological Exam Neurological Exam: Altered, Awake, CN II-XII Intact - Skin Skin Exam: Dry, Warm Assessment and Plan (1) Acute respiratory failure Status: Acute (2) Chronic a-fib Status: Acute (3) Dementia Status: Acute (4) CEZAR (acute kidney injury) Status: Acute (5) Acute respiratory failure with hypoxia and hypercapnia Status: Acute (6) History of hypertension Status: Acute (7) ESRD (end stage renal disease) Status: Acute - Assessment and Plan (Free Text) Plan: Dialysis MWF Add midodrine Monitor BP
--- NOTE | 2017-06-25 13:12 | CP.PCM.PN ---
Subjective - Date & Time of Evaluation Date of Evaluation: 06/25/17 Time of Evaluation: 13:12 - Subjective Subjective: nonverbal,confused,open her eyes,not following command Objective - Vital Signs/Intake and Output Vital Signs (last 24 hours): Temp Pulse Resp BP Pulse Ox 98 F 112 H 27 H 89/43 L 94 L 06/25/17 08:00 06/25/17 11:00 06/25/17 11:00 06/25/17 10:31 06/25/17 11:00 Intake and Output: 06/25/17 06/25/17 06:59 18:59 Intake Total 240 210 Output Total 0 0 Balance 240 210 - Medications Medications: Current Medications Aspirin (Aspirin Chewable) [address] [facility] Last Admin: 06/25/17 09:36 Dose: 81 mg Calcium Acetate (Phoslo) [address] [facility] Last Admin: 06/25/17 12:04 Dose: 667 mg Ferrous Sulfate (Feosol Liq) [address] [facility] Last Admin: 06/25/17 09:40 Dose: 300 mg Heparin Sodium (Porcine) (Heparin) 5,[address] [facility] Last Admin: 06/25/17 09:36 Dose: 5,000 units Cefepime HCl (Maxipime Iv 1 Gm Premix) 1 gm in 50 mls @ 100 mls/hr IVPB Q24H [facility] Last Admin: 06/24/17 18:27 Dose: 100 mls/hr Vancomycin HCl 1 gm/ Sodium (Chloride) 250 mls @ 166.7 mls/hr IVPB MWF [facility] Metoprolol Succinate (Toprol Xl) 12.[address] [facility] Midodrine (Proamatine) [address] [facility] Ondansetron HCl (Zofran Inj) 4 mg IVP Q6H PRN PRN Reason: Nausea/Vomiting Last Admin: 06/20/17 21:00 Dose: 4 mg Pantoprazole Sodium (Protonix Susp) [address] [facility] Last Admin: 06/25/17 09:40 Dose: 40 mg - Labs Labs: 06/25/17 06:32 06/25/17 06:32 PT 14.3 SECONDS (9.7-12.2) H 06/09/17 06:24 INR 1.3 06/09/17 06:24 APTT 27 SECONDS (21-34) 06/09/17 06:24 - Constitutional Appears: No Acute Distress, Chronically Ill - Head Exam Head Exam: ATRAUMATIC - Eye Exam Eye Exam: Normal appearance - ENT Exam ENT Exam: Normal Exam - Neck Exam Neck Exam: Normal Inspection - Respiratory Exam Respiratory Exam: Clear to Ausculation Bilateral. absent: Respiratory Distress - Cardiovascular Exam Cardiovascular Exam: Irregular Rhythm - GI/Abdominal Exam GI & Abdominal Exam: Soft, Normal Bowel Sounds. absent: Tenderness - Rectal Exam Rectal Exam: Deferred - Extremities Exam Extremities Exam: Pedal Edema. absent: Normal Inspection (ecchymosis) - Neurological Exam Neurological Exam: Altered (ope eyes,confused) - Psychiatric Exam Psychiatric exam: Normal Affect - Skin Skin Exam: Dry, Normal Color Assessment and Plan - Assessment and Plan (Free Text) Assessment: This is 76years old female with multiple medical problem including COPD,chronic kidney disease,Afib,cardiomegaly,HTN,dementia and complicated hospital stay was transferred to ICU for hypotension and lethargy.She is getting dialysis TIW Plan: 1. Hypotension,Atrial fibrillarion,Hx of CHF s/p dialysis on 06/24/2017.Started on Midodrine by work counselor On asprin,Not on anticoagulation due to anemia and ecchymosis metoprolol on hold 2.Shortness of breath On BIPAP as needed,continue oxygen 3.ESRD.on dialysis,continue phoslo and procrit 4.Anemia-continue Iron and procrit,likely due to ESRD 5.Leukocytosis with bands,elevated procalcitonin Continue cefepime and vanco Id follow up appreciated,follow cultures 6.Altered mental status and diet NG feeding 7. Prophylaxis: DVT: Heparin SC 5000 Q12 GI: Protonix 40 mg PO daily 8.Full code.(Discussed with son few days ago)
--- NOTE | 2017-06-25 13:13 | CP.CCUPN ---
CCU Subjective - Physician Review Events Since Last Encounter (Free Text): 06/25/17 The Patient was seen and examined at the bedside, Medical records reviewed, and management issues were discussed and formulated with the house staff. Awake, but does not follow basic commands. Aphasic Afebrile. Comfortable, NAD Remains borderline hypotensive. Tolerating tube feeding. CCU Objective - Vital Signs / Intake & Output Vital Signs (Last 4 hours): Vital Signs Pulse Resp BP Pulse Ox 06/25/17 11:00 112 H 27 H 94 L 06/25/17 10:31 101 H 21 89/43 L 06/25/17 10:00 107 H 19 98 06/25/17 09:31 108 H 16 94/42 L Intake and Output (Last 8hrs): Intake & Output 06/24/17 06/25/17 06/25/17 22:59 06:59 14:59 Intake Total 150 160 210 Output Total 0 0 0 Balance 150 160 210 Weight 238 lb Intake: Intake, IV Amount 0 Left Wrist 0 Right Distal Port 0 Internal Jugular Tube Feeding 150 160 110 Other 100 Output: Urine 0 0 0 Urine, Voided 0 0 0 Stool 0 Other: # Bowel Movements 1 1 - Physical Exam Head: Positive for: Atraumatic, Normocephalic Pupils: Positive for: PERRL Extroacular Muscles: Positive for: EOMI Mouth: Positive for: Moist Mucous Membranes Respiratory/Chest: Positive for: Good Air Exchange, Rales, Other (Patient is on 3L NC ). Negative for: Respiratory Distress, Accessory Muscle Use Cardiovascular: Positive for: Regular Rate and Rhythm, Normal S1, S2 Abdomen: Positive for: Normal Bowel Sounds. Negative for: Tenderness Breast/Axillary: Positive for: Discoloration (ecchymosis left lower breast) Upper Extremity: Positive for: Other (Moderate Ecchymosis noted bilaterally ). Negative for: Normal Inspection Lower Extremity: Negative for: Edema, Tenderness, Swelling Neurological: Positive for: Other (follows commands) Skin: Positive for: Warm Psychiatric: Positive for: Alert - Medications Active Medications: Active Medications Generic Name Dose Route Start Last Admin Trade Name Freq PRN Reason Stop Dose Admin Aspirin 81 mg 06/24/17 15:30 06/25/17 09:36 Aspirin Chewable PO 81 mg DAILY ALISA Administration Calcium Acetate 667 mg 06/01/17 17:00 06/25/17 12:04 Phoslo PO 667 mg TIDCC ALISA Administration Ferrous Sulfate 300 mg 06/25/17 10:00 06/25/17 09:40 Feosol Liq NG 300 mg DAILY ALISA Administration Heparin Sodium (Porcine) 5,000 units 06/22/17 22:00 06/25/17 09:36 Heparin SC 5,000 units Q12 ALISA Administration Cefepime HCl 1 gm in 50 mls @ 100 mls/hr 06/24/17 15:00 06/24/17 18:27 Maxipime Iv 1 Gm Premix IVPB 100 mls/hr Q24H ALISA Administration Vancomycin HCl 1 gm/ Sodium 250 mls @ 166.7 mls/hr 06/26/17 09:00 Chloride IVPB MWF [facility] Metoprolol Succinate 12.5 mg 06/25/17 09:29 Toprol Xl PO DAILY [facility] Midodrine 5 mg 06/25/17 14:00 Proamatine PO TID [facility] Ondansetron HCl 4 mg 06/15/17 13:57 06/20/17 21:00 Zofran Inj IVP 4 mg Q6H PRN Administration Nausea/Vomiting Pantoprazole Sodium 40 mg 06/25/17 10:00 06/25/17 09:40 Protonix Susp NG 40 mg DAILY ALISA Administration - Patient Studies Lab Studies: Microbiology Studies 06/22/17 12:05 Blood Culture - Preliminary Blood-During Dialysis NO GROWTH AFTER 48 HOURS 06/22/17 11:35 Blood Culture - Preliminary Blood-During Dialysis NO GROWTH AFTER 48 HOURS Lab Studies 06/25/17 06/25/17 06/24/17 Range/Units 06:32 06:32 09:28 WBC 13.1 H (4.8-10.8) K/uL RBC 3.55 L (3.80-5.20) Mil/uL Hgb 11.3 (11.0-16.0) g/dL Hct 35.8 (34.0-47.0) % MCV 101.0 H (81.0-99.0) fL MCH 31.7 H (27.0-31.0) pg MCHC 31.4 L (33.0-37.0) g/dL RDW 26.1 H (11.5-14.5) % Plt Count 173 (130-400) K/uL MPV 8.1 (7.2-11.7) fL Neut % (Auto) 72.1 (50.0-75.0) % Lymph % (Auto) 15.0 L (20.0-40.0) % [place] % (Auto) 12.0 H (0.0-10.0) % Eos % (Auto) 0.4 (0.0-4.0) % Baso % (Auto) 0.5 (0.0-2.0) % Neut # 9.5 H (1.8-7.0) K/uL Lymph # 2.0 (1.0-4.3) K/uL [place] # 1.6 H (0.0-0.8) K/uL Eos # 0.1 (0.0-0.7) K/uL Baso # 0.1 (0.0-0.2) K/uL Sodium 136 (132-148) mmol/L Potassium 4.4 (3.6-5.2) mmol/L Chloride 97 L (98-107) mmol/L Carbon Dioxide 24 (22-30) mmol/L Anion Gap 19 (10-20) BUN 38 H (7-17) mg/dL Creatinine 3.8 H (0.7-1.2) mg/dL Est GFR ( Amer) 14 Est GFR (Non-Af Amer) 11 Random Glucose 94 (65-105) mg/dL Calcium 9.1 (8.6-10.4) mg/dl Phosphorus 5.6 H (2.5-4.5) mg/dL Magnesium 2.1 (1.6-2.3) mg/dL Total Bilirubin 1.6 H (0.2-1.3) mg/dL AST 47 H (14-36) U/L ALT 23 (9-52) U/L Alkaline Phosphatase 85 (38-126) U/L Total Protein 7.3 (6.3-8.3) g/dL Albumin 3.5 (3.5-5.0) g/dL Globulin 3.8 (2.2-3.9) gm/dL Albumin/Globulin Ratio 0.9 L (1.0-2.1) Procalcitonin 4.16 H (0.19-0.49) NG/ML Laboratory Results - last 24 hr 06/24/17 06/25/1706/25/17 09:28 06:32 06:32 WBC 13.1 H RBC 3.55 L Hgb 11.3 Hct 35.8 MCV 101.0 H MCH 31.7 H MCHC 31.4 L RDW 26.1 H Plt Count 173 MPV 8.1 Neut % (Auto) 72.1 Lymph % (Auto) 15.0 L [place] % (Auto) 12.0 H Eos % (Auto) 0.4 Baso % (Auto) 0.5 Neut # 9.5 H Lymph # 2.0 [place] # 1.6 H Eos # 0.1 Baso # 0.1 Sodium 136 Potassium 4.4 Chloride 97 L Carbon Dioxide 24 Anion Gap 19 BUN 38 H Creatinine 3.8 H Est GFR ( Amer) 14 Est GFR (Non-Af Amer) 11 Random Glucose 94 Calcium 9.1 Phosphorus 5.6 H Magnesium 2.1 Total Bilirubin 1.6 H AST 47 H ALT 23 Alkaline Phosphatase 85 Total Protein 7.3 Albumin 3.5 Globulin 3.8 Albumin/Globulin Ratio 0.9 L Procalcitonin 4.16 H Assessment/Plan (1) Sepsis Current Visit: Yes Status: Acute (2) Acute respiratory failure with hypoxia and hypercapnia Current Visit: Yes Status: Acute (3) Anemia Current Visit: Yes Status: Acute (4) Atrial fibrillation, new onset Current Visit: Yes Status: Acute (5) Chronic a-fib Current Visit: Yes Status: Acute (6) ESRD (end stage renal disease) Current Visit: Yes Status: Acute - Assessment and Plan (Free Text) Assessment: Continue current ICU management and hemodynamic monitoring. Antibiotics as per ID ESRD on HD A-Fibrillation HR controlled on Lopressor 12.5mg PO daily Start Midodrine PRN BIPAP GI/DVT PPX Code status: Full code
[2017-06-25] MEDS: Cefepime IV 1 gm in Dextrose 1 GM/50 ML BAG IVPB SCH (14:47)
--- NOTE | 2017-06-25 18:25 | CP.PCM.PN ---
Subjective - Date & Time of Evaluation Date of Evaluation: 06/25/17 Time of Evaluation: 07:00 - Subjective Subjective: afebrile lethargic NAD Objective - Vital Signs/Intake and Output Vital Signs (last 24 hours): Temp Pulse Resp BP Pulse Ox 98 F 100 H 26 H 82/46 L 97 06/25/17 16:00 06/25/17 16:00 06/25/17 16:00 06/25/17 15:31 06/25/17 16:00 Intake and Output: 06/25/17 06/25/17 06:59 18:59 Intake Total 240 410 Output Total 0 0 Balance 240 410 - Medications Medications: Current Medications Aspirin (Aspirin Chewable) 81 mg PO DAILY [facility] Last Admin: 06/25/17 09:36 Dose: 81 mg Calcium Acetate (Phoslo) 667 mg PO TIDCC [facility] Last Admin: 06/25/17 17:27 Dose: 667 mg Ferrous Sulfate (Feosol Liq) 300 mg NG DAILY [facility] Last Admin: 06/25/17 09:40 Dose: 300 mg Heparin Sodium (Porcine) (Heparin) 5,000 units SC Q12 [facility] Last Admin: 06/25/17 09:36 Dose: 5,000 units Cefepime HCl (Maxipime Iv 1 Gm Premix) 1 gm in 50 mls @ 100 mls/hr IVPB Q24H [facility] Last Admin: 06/25/17 14:47 Dose: 100 mls/hr Vancomycin HCl 1 gm/ Sodium (Chloride) 250 mls @ 166.7 mls/hr IVPB MWF [facility] Metoprolol Succinate (Toprol Xl) 12.5 mg PO DAILY [facility] Midodrine (Proamatine) 5 mg PO TID [facility] Last Admin: 06/25/17 17:27 Dose: 5 mg Ondansetron HCl (Zofran Inj) 4 mg IVP Q6H PRN PRN Reason: Nausea/Vomiting Last Admin: 06/20/17 21:00 Dose: 4 mg Pantoprazole Sodium (Protonix Susp) 40 mg NG DAILY [facility] Last Admin: 06/25/17 09:40 Dose: 40 mg - Labs Labs: 06/25/17 06:32 06/25/17 06:32 PT 14.3 SECONDS (9.7-12.2) H 06/09/17 06:24 INR 1.3 06/09/17 06:24 APTT 27 SECONDS (21-34) 06/09/17 06:24 - Constitutional Appears: Non-toxic, Chronically Ill - Head Exam Head Exam: NORMOCEPHALIC - Eye Exam Eye Exam: PERRL - ENT Exam ENT Exam: Mucous Membranes Dry - Neck Exam Neck Exam: absent: Lymphadenopathy - Respiratory Exam Respiratory Exam: Decreased Breath Sounds - Cardiovascular Exam Cardiovascular Exam: REGULAR RHYTHM - GI/Abdominal Exam GI & Abdominal Exam: Distended - Rectal Exam Rectal Exam: Deferred - Exam Exam: NORMAL INSPECTION - Extremities Exam Extremities Exam: absent: Pedal Edema - Back Exam Back Exam: absent: CVA tenderness (L), CVA tenderness (R), paraspinal tenderness - Neurological Exam Neurological Exam: Altered - Psychiatric Exam Psychiatric exam: Depressed - Skin Skin Exam: Dry Assessment and Plan (1) Acute respiratory failure with hypoxia and hypercapnia Status: Acute (2) Atrial fibrillation, new onset Status: Acute (3) COPD exacerbation Status: Acute (4) Dementia Status: Acute (5) ESRD (end stage renal disease) Status: Acute - Assessment and Plan (Free Text) Assessment: recent septic work up neg cont cefepime day 2
--- NOTE | 2017-06-25 22:27 | CP.PCM.PN ---
Subjective - Date & Time of Evaluation Date of Evaluation: 06/25/17 Time of Evaluation: 07:40 - Subjective Subjective: Patient seen and evaluated Not in distress Physical Examination - Constitutional Appears: No Acute Distress, Chronically Ill - Head Exam Head Exam: ATRAUMATIC - Eye Exam Eye Exam: Normal appearance - ENT Exam ENT Exam: Normal Exam - Neck Exam Neck Exam: Normal Inspection - Respiratory Exam Respiratory Exam: Clear to Ausculation Bilateral. absent: Respiratory Distress - Cardiovascular Exam Cardiovascular Exam: Irregular Rhythm - GI/Abdominal Exam GI & Abdominal Exam: Soft, Normal Bowel Sounds. absent: Tenderness - Rectal Exam Rectal Exam: Deferred - Extremities Exam Extremities Exam: Pedal Edema. absent: Normal Inspection (ecchymosis) - Neurological Exam Neurological Exam: Altered (ope eyes,confused) - Psychiatric Exam Psychiatric exam: Normal Affect - Skin Skin Exam: Dry, Normal Color Objective - Vital Signs/Intake and Output Vital Signs (last 24 hours): Temp Pulse Resp BP Pulse Ox 98 F 108 H 25 H 87/36 L 96 06/25/17 16:00 06/25/17 19:07 06/25/17 19:07 06/25/17 19:07 06/25/17 19:07 Intake and Output: 06/25/17 06/26/17 18:59 06:59 Intake Total 480 40 Output Total 0 Balance 480 40 - Medications Medications: Current Medications Aspirin (Aspirin Chewable) 81 mg PO DAILY [facility] Last Admin: 06/25/17 09:36 Dose: 81 mg Calcium Acetate (Phoslo) 667 mg PO TIDCC [facility] Last Admin: 06/25/17 17:27 Dose: 667 mg Ferrous Sulfate (Feosol Liq) 300 mg NG DAILY [facility] Last Admin: 06/25/17 09:40 Dose: 300 mg Heparin Sodium (Porcine) (Heparin) 5,000 units SC Q12 [facility] Last Admin: 06/25/17 21:11 Dose: 5,000 units Cefepime HCl (Maxipime Iv 1 Gm Premix) 1 gm in 50 mls @ 100 mls/hr IVPB Q24H [facility] Last Admin: 06/25/17 14:47 Dose: 100 mls/hr Vancomycin HCl 1 gm/ Sodium (Chloride) 250 mls @ 166.7 mls/hr IVPB MWF [facility] Metoprolol Succinate (Toprol Xl) 12.5 mg PO DAILY [facility] Midodrine (Proamatine) 5 mg PO TID [facility] Last Admin: 06/25/17 17:27 Dose: 5 mg Ondansetron HCl (Zofran Inj) 4 mg IVP Q6H PRN PRN Reason: Nausea/Vomiting Last Admin: 06/20/17 21:00 Dose: 4 mg Pantoprazole Sodium (Protonix Susp) 40 mg NG DAILY [facility] Last Admin: 06/25/17 09:40 Dose: 40 mg - Labs Labs: 06/25/17 06:32 06/25/17 06:32 PT 14.3 SECONDS (9.7-12.2) H 06/09/17 06:24 INR 1.3 06/09/17 06:24 APTT 27 SECONDS (21-34) 06/09/17 06:24 Assessment and Plan - Assessment and Plan (Free Text) Assessment: Hypotension Assessment & Plan: Patient is hypotensive but stable. Status: Acute Atrial fibrillation Assessment & Plan: Patient is currently off Diltiazem due to hypotension. CHADs Score of 5- Patient off Lovenox due to anemia and ecchymosis. Will need to determine anticoagulation measures. At this time, on DVT prophylaxis solely. Will start ASA On Feosol for Anemia Status: Acute CHF (congestive heart failure) Assessment & Plan: CXR 06/23 : stable cardiomegaly, improved history volume EF 57.8% Cont to monitor on Lasix PRN Status: Acute ESRD on HD MWF Assessment & Plan: Patient to have HD today Recommendations decreased goal due to hypotension Status: Chronic Elevated troponin Assessment & Plan: On admission elevated; likely secondary to then CHF exacerbation Continue to monitor Status: Acute Prophylactic measure Assessment & Plan: Heparin SC 5000 Q12 Protonix 40 mg PO daily Status: Acute
[2017-06-26 06:16] LABS: BASO % 0.3 % (0.0-2.0); EOS # 0.1 K/uL (0.0-0.7); EOS % 0.9 % (0.0-4.0); HEMATOCRIT 34.7 % (34.0-47.0); LYMPH % 14.3 % (20.0-40.0); MEAN CELL VOLUME 99.9 fL (81.0-99.0); MEAN CORPUSCULAR HEMOGLOBIN 31.7 pg (27.0-31.0); MEAN CORPUSCULAR HGB CONC 31.8 g/dL (33.0-37.0); MEAN PLATELET VOLUME 7.8 fL (7.2-11.7); MONO # 1.6 K/uL (0.0-0.8); MONO % 11.5 % (0.0-10.0); NRBC % 2.4 % (0.0-2.0); RED CELL DISTRIBUTION WIDTH 26.3 % (11.5-14.5)
[2017-06-26 06:25] LABS: POTASSIUM 3.7 mmol/L (3.6-5.2)
[2017-06-26 06:27] LABS: BILIRUBIN,TOTAL 1.3 mg/dL (0.2-1.3)
[2017-06-26 06:28] LABS: CALCIUM 9.3 mg/dl (8.6-10.4); MAGNESIUM 2.4 mg/dL (1.6-2.3); PHOSPHOROUS 4.8 mg/dL (2.5-4.5)
[2017-06-26 06:48] LABS: ALB/GLOB RATIO 0.9 (1.0-2.1)
--- NOTE | 2017-06-26 08:41 | CP.CCUPN ---
<Cal Bruner E - Last Filed: 06/26/17 11:44> CCU Subjective - Physician Review Subjective (Free Text): Patient was seen and examined at bedside. Patient seems mildly agitated this morning. Patient opened her eyes spontaneously during examination and responds to all stimuli. Patient does not speak or utilize "head" motion to answer questions, therefore ROS is unattainable. Patient does not follow commands. CCU Objective - Vital Signs / Intake & Output Vital Signs (Last 4 hours): Vital Signs Pulse Resp BP Pulse Ox 06/26/17 07:31 114 H 26 H 80/40 L 97 06/26/17 07:00 109 H 24 97 06/26/17 06:31 105 H 25 H 88/40 L 06/26/17 06:00 111 H 21 97 06/26/17 05:31 106 H 21 85/35 L 06/26/17 05:00 111 H 25 H 98 Intake and Output (Last 8hrs): Intake & Output 06/25/17 06/26/17 06/26/17 22:59 06:59 14:59 Intake Total 340 340 50 Balance 340 340 50 Weight 244 lb Intake: Intake, IV Amount 50 0 0 Left Wrist 50 0 0 Tube Feeding 290 340 50 Other: # Bowel Movements 1 1 - Physical Exam Head: Positive for: Atraumatic, Normocephalic Extroacular Muscles: Positive for: EOMI Mouth: Positive for: Moist Mucous Membranes Respiratory/Chest: Positive for: Good Air Exchange (Anteriorly), Rales, Other ( Patient is on 3L NC ). Negative for: Respiratory Distress, Accessory Muscle Use Cardiovascular: Positive for: Regular Rate and Rhythm, Normal S1, S2 Abdomen: Positive for: Distention, Normal Bowel Sounds. Negative for: Tenderness Breast/Axillary: Positive for: Discoloration (ecchymosis left lower breast) Upper Extremity: Positive for: Other (Moderate Ecchymosis noted bilaterally ). Negative for: Normal Inspection Lower Extremity: Positive for: Other (mild ecchymosis on bilateral thighs). Negative for: Edema, Tenderness, Swelling Neurological: Positive for: Other (follows commands). Negative for: Speech Normal Skin: Positive for: Normal Color Psychiatric: Positive for: Alert - Medications Active Medications: Active Medications Generic Name Dose Route Start Last Admin Trade Name Freq PRN Reason Stop Dose Admin Aspirin 81 mg 06/24/17 15:30 06/25/17 09:36 Aspirin Chewable PO 81 mg DAILY ALISA Administration Calcium Acetate 667 mg 06/01/17 17:00 06/26/17 08:03 Phoslo PO 667 mg TIDCC ALISA Administration Ferrous Sulfate 300 mg 06/25/17 10:00 06/25/17 09:40 Feosol Liq NG 300 mg DAILY ALISA Administration Heparin Sodium (Porcine) 5,000 units 06/22/17 22:00 06/25/17 21:11 Heparin SC 5,000 units Q12 ALISA Administration Cefepime HCl 1 gm in 50 mls @ 100 mls/hr 06/24/17 15:00 06/25/17 14:47 Maxipime Iv 1 Gm Premix IVPB 100 mls/hr Q24H ALISA Administration Vancomycin HCl 1 gm/ Sodium 250 mls @ 166.7 mls/hr 06/26/17 09:00 Chloride IVPB MWF [facility] Metoprolol Succinate 12.5 mg 06/25/17 09:29 Toprol Xl PO DAILY [facility] Midodrine 5 mg 06/25/17 14:00 06/25/17 17:27 Proamatine PO 5 mg TID ALISA Administration Ondansetron HCl 4 mg 06/15/17 13:57 06/20/17 21:00 Zofran Inj IVP 4 mg Q6H PRN Administration Nausea/Vomiting Pantoprazole Sodium 40 mg 06/25/17 10:00 06/25/17 09:40 Protonix Susp NG 40 mg DAILY ALISA Administration - Patient Studies Lab Studies: Microbiology Studies 06/22/17 12:05 Blood Culture - Preliminary Blood-During Dialysis NO GROWTH AFTER 3 DAYS 06/22/17 11:35 Blood Culture - Preliminary Blood-During Dialysis NO GROWTH AFTER 3 DAYS Lab Studies 06/26/17 06/26/17 Range/Units 06:04 06:04 WBC 14.0 H (4.8-10.8) K/uL RBC 3.48 L (3.80-5.20) Mil/uL Hgb 11.0 (11.0-16.0) g/dL Hct 34.7 (34.0-47.0) % MCV 99.9 H (81.0-99.0) fL MCH 31.7 H (27.0-31.0) pg MCHC 31.8 L (33.0-37.0) g/dL RDW 26.3 H (11.5-14.5) % Plt Count 199 (130-400) K/uL MPV 7.8 (7.2-11.7) fL Neut % (Auto) 73.0 (50.0-75.0) % Lymph % (Auto) 14.3 L (20.0-40.0) % [place] % (Auto) 11.5 H (0.0-10.0) % Eos % (Auto) 0.9 (0.0-4.0) % Baso % (Auto) 0.3 (0.0-2.0) % Neut # 10.2 H (1.8-7.0) K/uL Lymph # 2.0 (1.0-4.3) K/uL [place] # 1.6 H (0.0-0.8) K/uL Eos # 0.1 (0.0-0.7) K/uL Baso # 0.0 (0.0-0.2) K/uL Sodium 138 (132-148) mmol/L Potassium 3.7 (3.6-5.2) mmol/L Chloride 96 L (98-107) mmol/L Carbon Dioxide 27 (22-30) mmol/L Anion Gap 19 (10-20) BUN 56 H (7-17) mg/dL Creatinine 4.4 H (0.7-1.2) mg/dL Est GFR ( Amer) 12 Est GFR (Non-Af Amer) 10 Random Glucose 125 H (65-105) mg/dL Calcium 9.3 (8.6-10.4) mg/dl Phosphorus 4.8 H (2.5-4.5) mg/dL Magnesium 2.4 H (1.6-2.3) mg/dL Total Bilirubin 1.3 (0.2-1.3) mg/dL AST 39 H (14-36) U/L ALT 31 (9-52) U/L Alkaline Phosphatase 88 (38-126) U/L Total Protein 7.0 (6.3-8.3) g/dL Albumin 3.4 L (3.5-5.0) g/dL Globulin 3.6 (2.2-3.9) gm/dL Albumin/Globulin Ratio 0.9 L (1.0-2.1) Laboratory Results - last 24 hr 06/26/17 06/26/17 06:04 06:04 WBC 14.0 H RBC 3.48 L Hgb 11.0 Hct 34.7 MCV 99.9 H MCH 31.7 H MCHC 31.8 L RDW 26.3 H Plt Count 199 MPV 7.8 Neut % (Auto) 73.0 Lymph % (Auto) 14.3 L [place] % (Auto) 11.5 H Eos % (Auto) 0.9 Baso % (Auto) 0.3 Neut # 10.2 H Lymph # 2.0 Door # 1.6 H Eos # 0.1 Baso # 0.0 Sodium 138 Potassium 3.7 Chloride 96 L Carbon Dioxide 27 Anion Gap 19 BUN 56 H Creatinine 4.4 H Est GFR ( Amer) 12 Est GFR (Non-Af Amer) 10 Random Glucose 125 H Calcium 9.3 Phosphorus 4.8 H Magnesium 2.4 H Total Bilirubin 1.3 AST 39 H ALT 31 Alkaline Phosphatase 88 Total Protein 7.0 Albumin 3.4 L Globulin 3.6 Albumin/Globulin Ratio 0.9 L Review of Systems - Review of Systems Review of Systems: Unable to evaluate adequate ROS as patient does not speak or utilize "head motion" to responds to questions. Critical Care Progress Note - Ventilator Checklist Daily Sedation Vacation: No Daily Spontaneous Breathing Trial: No DVT Prophylaxis: Yes Assessment/Plan - Assessment and Plan (Free Text) Assessment: Patient is a 76 year old female with PMH of COPD, Asthma, HTN, Cardiomegaly, Dementia who has had an extensive complicated hospital course. Patient was transfer to the ICU due to hypotension and lethargic s/p HD. Today: Plan: Continue current management Plan: Neuro: Alert, but does not follow command Cardio: Hypotension s/p HD, Hx of A.fibrillation, Hx of CHF, Medication/Management: * Lopressor 12.5mg PO daily ( Held due to hypotension) * Midodrine 5mg PO TID Pulm: Hx of respiratory distress * Currently, on 3L NC Renal: End stage renal disease Medication/Management: * HD on M, W, F * Procrit 10,000 unit with HD * Phoslo 667mg PO TIDCC Heme: Anemia secondary to ESRD Medication/Management: * Feosol 325mg PO daily ID: Leukocytosis, Bands (7) * Blood Culture (No Growth) * Lactate: 1.8. Procalcitonin: 4.16 (06/24/17) * F/u repeat urine culture Medication: * Cefepime 1gm IVPB 24H (Started 06/24/17) * Vanco 1gm IVPB M,W, F (Started 06/26/17) Prophylaxis: DVT: Heparin SC 5000 Q12H GI: Protonix 40 ng PO daily Zofran 4mg IVP Q6H prn NGT placement for nephro tube feeding PT and OT <Richard Calle M - Last Filed: 07/01/17 00:11> CCU Objective - Vital Signs / Intake & Output Intake and Output (Last 8hrs): Intake & Output 06/30/17 06/30/17 07/01/17 14:59 22:59 06:59 Intake Total 50 Balance 50 Intake: Oral 50 Tube Feeding 0 - Patient Studies Lab Studies: Microbiology Studies 06/29/17 14:00 Blood Culture - Preliminary Blood NO GROWTH AFTER 24 HOURS 06/29/17 14:30 Blood Culture - Preliminary Blood NO GROWTH AFTER 24 HOURS Lab Studies 06/30/17 Range/Units 08:14 C. difficile Ag & Toxin Negative (NEGATIVE) Laboratory Results - last 24 hr 06/30/17 08:14 C. difficile Ag & Toxin Negative Assessment/Plan (1) Sepsis Status: Acute (2) Acute respiratory failure with hypoxia and hypercapnia Status: Acute Comment: BiPAP as needed Continue hemodialysis Continue antibiotics as per infectious disease Follow-up pro-calcitonin level (3) Anemia Status: Acute (4) Atrial fibrillation, new onset Status: Acute (5) Chronic a-fib Status: Acute (6) ESRD (end stage renal disease) Status: Acute Attending/Attestation - Attestation I have personally seen and examined this patient.: Yes I have fully participated in the care of the patient.: Yes I have reviewed all pertinent clinical information: Yes Notes (Text): 06/26/17 Today: Thursday, June 26, 2017 The Patient was seen and examined at the bedside, Medical records reviewed, and management issues were discussed and formulated with the house staff. I have reviewed all the relevant clinical, laboratory, hemodynamic, radiographic data and medications Events reviewed Pain issues, skin care, head of the bed elevation, glycemic control were addressed. Remains lethergic, no neurological changes Continue current ICU management and hemodynamic monitoring. Antibiotics as per ID ESRD on HD A-Fibrillation HR controlled on Lopressor Started on Midodrine Keep MAp >60 PRN BIPAP GI/DVT PPX Code status: Full code I concur with resident's assessment and plan of care as transcribed in Dr. Bruner note.
[2017-06-26] MEDS: Ferrous Sulfate 300 mg/5 mL Liq UD NG SCH (09:46)
[2017-06-26] MEDS: Pantoprazole 40 mg Susp UD NG SCH (09:47)
--- NOTE | 2017-06-26 12:18 | CP.PCM.PN ---
<Gena Matthew - Last Filed: 06/26/17 12:19> Subjective - Date & Time of Evaluation Date of Evaluation: 06/26/17 Time of Evaluation: 08:20 - Subjective Subjective: Cardiology Progress Note- Dr. Hart's service Patient seen and evaluated bedside. Patient not responsive. Patient's eyes were closed though she reacts to sounds and touch. Patient due for HD today. An ROS could not be obtained at this time due to clinical status. Objective - Vital Signs/Intake and Output Vital Signs (last 24 hours): Temp Pulse Resp BP Pulse Ox 98.3 F 100 H 23 93/47 L 96 06/26/17 08:00 06/26/17 10:31 06/26/17 10:31 06/26/17 10:12 06/26/17 10:00 Intake and Output: 06/26/17 06/26/17 06:59 18:59 Intake Total 500 250 Balance 500 250 - Medications Medications: Current Medications Aspirin (Aspirin Chewable) 81 mg PO DAILY [facility] Last Admin: 06/26/17 09:46 Dose: 81 mg Calcium Acetate (Phoslo) 667 mg PO TIDCC [facility] Last Admin: 06/26/17 11:47 Dose: 667 mg Ferrous Sulfate (Feosol Liq) 300 mg NG DAILY [facility] Last Admin: 06/26/17 09:46 Dose: 300 mg Heparin Sodium (Porcine) (Heparin) 5,000 units SC Q12 [facility] Last Admin: 06/26/17 09:47 Dose: 5,000 units Cefepime HCl (Maxipime Iv 1 Gm Premix) 1 gm in 50 mls @ 100 mls/hr IVPB Q24H [facility] Last Admin: 06/25/17 14:47 Dose: 100 mls/hr Vancomycin HCl 1 gm/ Sodium (Chloride) 250 mls @ 166.7 mls/hr IVPB MWF [facility] Metoprolol Succinate (Toprol Xl) 12.5 mg PO DAILY [facility] Midodrine (Proamatine) 5 mg PO TID [facility] Last Admin: 06/26/17 09:46 Dose: 5 mg Ondansetron HCl (Zofran Inj) 4 mg IVP Q6H PRN PRN Reason: Nausea/Vomiting Last Admin: 06/20/17 21:00 Dose: 4 mg Pantoprazole Sodium (Protonix Susp) 40 mg NG DAILY [facility] Last Admin: 06/26/17 09:47 Dose: 40 mg - Labs Labs: 06/26/17 06:04 06/26/17 06:04 PT 14.3 SECONDS (9.7-12.2) H 06/09/17 06:24 INR 1.3 06/09/17 06:24 APTT 27 SECONDS (21-34) 06/09/17 06:24 - Constitutional Appears: Non-toxic, No Acute Distress - Head Exam Head Exam: NORMOCEPHALIC - Eye Exam Eye Exam: EOMI - ENT Exam ENT Exam: Mucous Membranes Moist - Neck Exam Neck Exam: Full ROM - Respiratory Exam Respiratory Exam: NORMAL BREATHING PATTERN. absent: Wheezes - Cardiovascular Exam Cardiovascular Exam: Irregular Rhythm, +S1, +S2 - GI/Abdominal Exam GI & Abdominal Exam: Soft, Normal Bowel Sounds - Extremities Exam Extremities Exam: Pedal Edema - Neurological Exam Neurological Exam: absent: Alert - Psychiatric Exam Psychiatric exam: Flat Affect - Skin Skin Exam: Dry, Warm Assessment and Plan (1) Atrial fibrillation, new onset Status: Acute (2) CHF (congestive heart failure) Status: Chronic (3) Elevated troponin Status: Acute (4) Prophylactic measure Status: Acute - Assessment and Plan (Free Text) Assessment: Atrial fibrillation Assessment & Plan: Patient is currently off Diltiazem due to hypotension. CHADs Score of 5- Patient off Lovenox due to anemia and ecchymosis. Will need to determine anticoagulation measures. At this time, on DVT prophylaxis solely. ASA On Feosol for Anemia Status: Acute Hypotension Assessment & Plan: Stable Avoid excess fluids due to CHF Recommendations for decreased goal due to hypotension Continue to monitor Status: Acute CHF (congestive heart failure) Assessment & Plan: CXR 06/23 : stable cardiomegaly, improved history volume EF 57.8% Cont to monitor on Lasix PRN Status: Acute ESRD on HD MWF Assessment & Plan: Patient to have HD today Recommendations decreased goal due to hypotension Status: Chronic Elevated troponin Assessment & Plan: On admission elevated; likely secondary to then CHF exacerbation Continue to monitor Status: Acute Anemia Assessment & Plan: On Feosol for Anemia Status: Acute Prophylactic measure Assessment & Plan: Heparin SC 5000 Q12 Protonix 40 mg PO daily Status: Acute Discussed with Dr. Hart. All management and planning per Dr. Hart. <Ish Hart - Last Filed: 06/26/17 23:19> Objective - Vital Signs/Intake and Output Vital Signs (last 24 hours): Temp Pulse Resp BP Pulse Ox 98.7 F 92 H 29 H 93/44 L 100 06/26/17 20:00 06/26/17 22:04 06/26/17 22:04 06/26/17 22:04 06/26/17 22:04 Intake and Output: 06/26/17 06/27/17 18:59 06:59 Intake Total 950 150 Output Total 0 0 Balance 950 150 - Medications Medications: Current Medications Aspirin (Aspirin Chewable) 81 mg PO DAILY [facility] Last Admin: 06/26/17 09:46 Dose: 81 mg Calcium Acetate (Phoslo) 667 mg PO TIDCC [facility] Last Admin: 06/26/17 17:08 Dose: 667 mg Ferrous Sulfate (Feosol Liq) 300 mg NG DAILY [facility] Last Admin: 06/26/17 09:46 Dose: 300 mg Heparin Sodium (Porcine) (Heparin) 5,000 units SC Q12 [facility] Last Admin: 06/26/17 22:00 Dose: 5,000 units Cefepime HCl (Maxipime Iv 1 Gm Premix) 1 gm in 50 mls @ 100 mls/hr IVPB Q24H [facility] Last Admin: 06/26/17 16:29 Dose: 100 mls/hr Vancomycin HCl 1 gm/ Sodium (Chloride) 250 mls @ 166.7 mls/hr IVPB MWF [facility] Last Admin: 06/26/17 16:32 Dose: 166.7 mls/hr Metoprolol Succinate (Toprol Xl) 12.5 mg PO DAILY [facility] Midodrine (Proamatine) 10 mg PO TID [facility] Last Admin: 06/26/17 17:09 Dose: 10 mg Ondansetron HCl (Zofran Inj) 4 mg IVP Q6H PRN PRN Reason: Nausea/Vomiting Last Admin: 06/20/17 21:00 Dose: 4 mg Pantoprazole Sodium (Protonix Susp) 40 mg NG DAILY [facility] Last Admin: 06/26/17 09:47 Dose: 40 mg - Labs Labs: 06/26/17 06:04 06/26/17 06:04 PT 14.3 SECONDS (9.7-12.2) H 06/09/17 06:24 INR 1.3 06/09/17 06:24 APTT 27 SECONDS (21-34) 06/09/17 06:24 Assessment and Plan - Assessment and Plan (Free Text) Assessment: Patient seen and evaluated with the medical van driver Plan of care as docsimrand
--- NOTE | 2017-06-26 12:37 | CP.PCM.PN ---
Subjective - Date & Time of Evaluation Date of Evaluation: 06/26/17 Time of Evaluation: 12:34 - Subjective Subjective: Remains lethargic, responded earlier to nursing SBP-80-90s AV fistula with bruit now cannot obtain ROS Objective - Vital Signs/Intake and Output Vital Signs (last 24 hours): Temp Pulse Resp BP Pulse Ox 98.3 F 100 H 23 93/47 L 96 06/26/17 08:00 06/26/17 10:31 06/26/17 10:31 06/26/17 10:12 06/26/17 10:00 Intake and Output: 06/26/17 06/26/17 06:59 18:59 Intake Total 500 250 Balance 500 250 - Medications Medications: Current Medications Aspirin (Aspirin Chewable) 81 mg PO DAILY [facility] Last Admin: 06/26/17 09:46 Dose: 81 mg Calcium Acetate (Phoslo) 667 mg PO TIDCC [facility] Last Admin: 06/26/17 11:47 Dose: 667 mg Ferrous Sulfate (Feosol Liq) 300 mg NG DAILY [facility] Last Admin: 06/26/17 09:46 Dose: 300 mg Heparin Sodium (Porcine) (Heparin) 5,000 units SC Q12 [facility] Last Admin: 06/26/17 09:47 Dose: 5,000 units Cefepime HCl (Maxipime Iv 1 Gm Premix) 1 gm in 50 mls @ 100 mls/hr IVPB Q24H [facility] Last Admin: 06/25/17 14:47 Dose: 100 mls/hr Vancomycin HCl 1 gm/ Sodium (Chloride) 250 mls @ 166.7 mls/hr IVPB MWF [facility] Metoprolol Succinate (Toprol Xl) 12.5 mg PO DAILY [facility] Midodrine (Proamatine) 5 mg PO TID [facility] Last Admin: 06/26/17 09:46 Dose: 5 mg Ondansetron HCl (Zofran Inj) 4 mg IVP Q6H PRN PRN Reason: Nausea/Vomiting Last Admin: 06/20/17 21:00 Dose: 4 mg Pantoprazole Sodium (Protonix Susp) 40 mg NG DAILY [facility] Last Admin: 06/26/17 09:47 Dose: 40 mg - Labs Labs: 06/26/17 06:04 06/26/17 06:04 PT 14.3 SECONDS (9.7-12.2) H 06/09/17 06:24 INR 1.3 06/09/17 06:24 APTT 27 SECONDS (21-34) 06/09/17 06:24 - Constitutional Appears: Confused, Chronically Ill - Head Exam Head Exam: ATRAUMATIC, NORMAL INSPECTION - Eye Exam Eye Exam: EOMI, Normal appearance - Neck Exam Neck Exam: Normal Inspection. absent: Tenderness - Respiratory Exam Respiratory Exam: Clear to Ausculation Bilateral, NORMAL BREATHING PATTERN - Cardiovascular Exam Cardiovascular Exam: Tachycardia, Irregular Rhythm - GI/Abdominal Exam GI & Abdominal Exam: Soft. absent: Tenderness - Extremities Exam Extremities Exam: Pedal Edema. absent: Tenderness - Neurological Exam Neurological Exam: Altered, CN II-XII Intact - Skin Skin Exam: Dry, Warm Assessment and Plan (1) Acute respiratory failure Status: Acute (2) Chronic a-fib Status: Acute (3) Dementia Status: Acute (4) CEZAR (acute kidney injury) Status: Acute (5) Acute respiratory failure with hypoxia and hypercapnia Status: Acute (6) History of hypertension Status: Acute (7) ESRD (end stage renal disease) Status: Acute - Assessment and Plan (Free Text) Plan: Dialysis today increase midodrine dose use permcath- await av access maturation GT feeds?
--- NOTE | 2017-06-26 15:18 | CP.PCM.PN ---
Subjective - Date & Time of Evaluation Date of Evaluation: 06/26/17 Time of Evaluation: 01:30 - Subjective Subjective: Patient is lying comfortable .No eye contact.Not following command. Objective - Vital Signs/Intake and Output Vital Signs (last 24 hours): Temp Pulse Resp BP Pulse Ox 98 F 103 H 13 87/52 L 98 06/26/17 12:00 06/26/17 13:00 06/26/17 13:00 06/26/17 12:31 06/26/17 13:00 Intake and Output: 06/26/17 06/26/17 06:59 18:59 Intake Total 500 400 Balance 500 400 - Medications Medications: Current Medications Aspirin (Aspirin Chewable) 81 mg PO DAILY [facility] Last Admin: 06/26/17 09:46 Dose: 81 mg Calcium Acetate (Phoslo) 667 mg PO TIDCC [facility] Last Admin: 06/26/17 11:47 Dose: 667 mg Ferrous Sulfate (Feosol Liq) 300 mg NG DAILY [facility] Last Admin: 06/26/17 09:46 Dose: 300 mg Heparin Sodium (Porcine) (Heparin) 5,000 units SC Q12 [facility] Last Admin: 06/26/17 09:47 Dose: 5,000 units Cefepime HCl (Maxipime Iv 1 Gm Premix) 1 gm in 50 mls @ 100 mls/hr IVPB Q24H [facility] Last Admin: 06/25/17 14:47 Dose: 100 mls/hr Vancomycin HCl 1 gm/ Sodium (Chloride) 250 mls @ 166.7 mls/hr IVPB MWF [facility] Metoprolol Succinate (Toprol Xl) 12.5 mg PO DAILY [facility] Midodrine (Proamatine) 10 mg PO TID [facility] Last Admin: 06/26/17 14:24 Dose: 10 mg Ondansetron HCl (Zofran Inj) 4 mg IVP Q6H PRN PRN Reason: Nausea/Vomiting Last Admin: 06/20/17 21:00 Dose: 4 mg Pantoprazole Sodium (Protonix Susp) 40 mg NG DAILY [facility] Last Admin: 06/26/17 09:47 Dose: 40 mg - Labs Labs: 06/26/17 06:04 06/26/17 06:04 PT 14.3 SECONDS (9.7-12.2) H 06/09/17 06:24 INR 1.3 06/09/17 06:24 APTT 27 SECONDS (21-34) 06/09/17 06:24 - Constitutional Appears: Chronically Ill - Head Exam Head Exam: NORMAL INSPECTION - Eye Exam Eye Exam: Normal appearance - ENT Exam ENT Exam: Mucous Membranes Moist - Neck Exam Neck Exam: Normal Inspection - Respiratory Exam Respiratory Exam: Decreased Breath Sounds, NORMAL BREATHING PATTERN - Cardiovascular Exam Cardiovascular Exam: Irregular Rhythm - GI/Abdominal Exam GI & Abdominal Exam: Soft, Normal Bowel Sounds - Extremities Exam Extremities Exam: Normal Capillary Refill, Pedal Edema - Neurological Exam Neurological Exam: absent: Alert - Skin Skin Exam: Dry Assessment and Plan - Assessment and Plan (Free Text) Assessment: This is 76years old female with multiple medical problem including COPD,chronic kidney disease,Afib,cardiomegaly,HTN,dementia and complicated hospital stay was transferred to ICU for hypotension and lethargy.She is getting dialysis TIW Plan: 1. Hypotension,Atrial fibrillarion,Hx of CHF Her SBP 80 to 90.She is on midodrine Today is her dialysis day.follow nephrology recommendation On asprin,Not on anticoagulation due to anemia and ecchymosis metoprolol on hold 2.Shortness of breath On BIPAP as needed,continue oxygen 3.ESRD.on dialysis,continue phoslo and procrit 4.Anemia-continue Iron and procrit,likely due to ESRD 5.Leukocytosis with bands,elevated procalcitonin Continue cefepime and vanco Id follow up appreciated,follow cultures 6.Altered mental status and diet NG feeding 7. Prophylaxis: DVT: Heparin SC 5000 Q12 GI: Protonix 40 mg PO daily 8.Full code.(Discussed with son few days ago)
[2017-06-26] MEDS: Cefepime IV 1 gm in Dextrose 1 GM/50 ML BAG IVPB SCH (16:29)
--- NOTE | 2017-06-27 07:28 | CP.PCM.PN ---
Subjective - Date & Time of Evaluation Date of Evaluation: 06/27/17 Time of Evaluation: 07:25 - Subjective Subjective: Notes reviewed Care reviewed with ICU nurse No overnight events Tolerated dialysis well 06/26 Remains hypotensive and unresponsive Tube feeding started - tolerating Unable to obtain ROS due to AMS Objective - Vital Signs/Intake and Output Vital Signs (last 24 hours): Temp Pulse Resp BP Pulse Ox 98.6 F 92 H 20 99/46 L 98 06/27/17 00:00 06/27/17 04:04 06/27/17 04:04 06/27/17 04:04 06/27/17 04:04 Intake and Output: 06/27/17 06/27/17 06:59 18:59 Intake Total 400 Output Total 0 Balance 400 - Medications Medications: Current Medications Aspirin (Aspirin Chewable) 81 mg PO DAILY [facility] Last Admin: 06/26/17 09:46 Dose: 81 mg Calcium Acetate (Phoslo) 667 mg PO TIDCC [facility] Last Admin: 06/26/17 17:08 Dose: 667 mg Ferrous Sulfate (Feosol Liq) 300 mg NG DAILY [facility] Last Admin: 06/26/17 09:46 Dose: 300 mg Heparin Sodium (Porcine) (Heparin) 5,000 units SC Q12 [facility] Last Admin: 06/26/17 22:00 Dose: 5,000 units Cefepime HCl (Maxipime Iv 1 Gm Premix) 1 gm in 50 mls @ 100 mls/hr IVPB Q24H [facility] Last Admin: 06/26/17 16:29 Dose: 100 mls/hr Vancomycin HCl 1 gm/ Sodium (Chloride) 250 mls @ 166.7 mls/hr IVPB MWF [facility] Last Admin: 06/26/17 16:32 Dose: 166.7 mls/hr Metoprolol Succinate (Toprol Xl) 12.5 mg PO DAILY [facility] Midodrine (Proamatine) 10 mg PO TID [facility] Last Admin: 06/26/17 17:09 Dose: 10 mg Ondansetron HCl (Zofran Inj) 4 mg IVP Q6H PRN PRN Reason: Nausea/Vomiting Last Admin: 06/20/17 21:00 Dose: 4 mg Pantoprazole Sodium (Protonix Susp) 40 mg NG DAILY [facility] Last Admin: 06/26/17 09:47 Dose: 40 mg - Labs Labs: 06/26/17 06:04 06/26/17 06:04 PT 14.3 SECONDS (9.7-12.2) H 06/09/17 06:24 INR 1.3 06/09/17 06:24 APTT 27 SECONDS (21-34) 06/09/17 06:24 - Constitutional Appears: No Acute Distress, Chronically Ill - Head Exam Head Exam: ATRAUMATIC, NORMAL INSPECTION - Eye Exam Eye Exam: Normal appearance - ENT Exam ENT Exam: Mucous Membranes Moist, Normal External Ear Exam - Neck Exam Neck Exam: absent: Lymphadenopathy, Thyromegaly - Respiratory Exam Respiratory Exam: Clear to Ausculation Bilateral. absent: Rhonchi, Wheezes - Cardiovascular Exam Cardiovascular Exam: +S1, +S2. absent: Rubs - GI/Abdominal Exam GI & Abdominal Exam: Soft, Normal Bowel Sounds - Extremities Exam Extremities Exam: Pedal Edema. absent: Joint Swelling - Neurological Exam Neurological Exam: Awake. absent: Alert, Oriented x3 Assessment and Plan (1) Acute respiratory failure Status: Acute (2) Anemia Status: Acute (3) COPD exacerbation Status: Acute (4) ESRD (end stage renal disease) Status: Acute - Assessment and Plan (Free Text) Assessment: maintain dialysis schedule- next treatment 06/29 Monitor bp in icu Tube feeding Maureen with dialysis Supportive care
[2017-06-27 07:44] LABS: BASO # 0.2 K/uL (0.0-0.2); BASO % 1.1 % (0.0-2.0); EOS # 0.1 K/uL (0.0-0.7); EOS % 0.5 % (0.0-4.0); HEMATOCRIT 37.6 % (34.0-47.0); LYMPH # 3.1 K/uL (1.0-4.3); LYMPH % 15.8 % (20.0-40.0); MEAN CELL VOLUME 101.2 fL (81.0-99.0); MEAN CORPUSCULAR HEMOGLOBIN 31.2 pg (27.0-31.0); MEAN CORPUSCULAR HGB CONC 30.9 g/dL (33.0-37.0); MEAN PLATELET VOLUME 7.9 fL (7.2-11.7); MONO # 1.7 K/uL (0.0-0.8); MONO % 8.9 % (0.0-10.0); NRBC % 1.4 % (0.0-2.0); PLATELET COUNT 171 K/uL (130-400); RED CELL DISTRIBUTION WIDTH 26.3 % (11.5-14.5); WHITE BLOOD COUNT 19.6 K/uL (4.8-10.8)
[2017-06-27 08:06] LABS: POTASSIUM 3.3 mmol/L (3.6-5.2)
[2017-06-27 08:08] LABS: ALB/GLOB RATIO 0.9 (1.0-2.1); BILIRUBIN,TOTAL 1.1 mg/dL (0.2-1.3); PHOSPHOROUS 2.5 mg/dL (2.5-4.5); TOTAL PROTEIN 7.1 g/dL (6.3-8.3)
[2017-06-27 08:09] LABS: CALCIUM 9.1 mg/dl (8.6-10.4); MAGNESIUM 2.2 mg/dL (1.6-2.3)
--- NOTE | 2017-06-27 09:01 | CP.PCM.PN ---
Subjective - Date & Time of Evaluation Date of Evaluation: 06/27/17 Time of Evaluation: 08:59 - Subjective Subjective: Seen and examined .Lying comfortable.Patient open her eyes spontaneously.Doesn' t talk,doesn't follow commands. Objective - Vital Signs/Intake and Output Vital Signs (last 24 hours): Temp Pulse Resp BP Pulse Ox 98.4 F 98 H 26 H 89/44 L 99 06/27/17 08:00 06/27/17 08:04 06/27/17 08:04 06/27/17 08:04 06/27/17 08:04 Intake and Output: 06/27/17 06/27/17 06:59 18:59 Intake Total 550 150 Output Total 0 Balance 550 150 - Medications Medications: Current Medications Aspirin (Aspirin Chewable) 81 mg PO DAILY [facility] Last Admin: 06/26/17 09:46 Dose: 81 mg Calcium Acetate (Phoslo) 667 mg PO TIDCC [facility] Last Admin: 06/27/17 07:58 Dose: 667 mg Ferrous Sulfate (Feosol Liq) 300 mg NG DAILY [facility] Last Admin: 06/26/17 09:46 Dose: 300 mg Heparin Sodium (Porcine) (Heparin) 5,000 units SC Q12 [facility] Last Admin: 06/26/17 22:00 Dose: 5,000 units Cefepime HCl (Maxipime Iv 1 Gm Premix) 1 gm in 50 mls @ 100 mls/hr IVPB Q24H [facility] Last Admin: 06/26/17 16:29 Dose: 100 mls/hr Vancomycin HCl 1 gm/ Sodium (Chloride) 250 mls @ 166.7 mls/hr IVPB MWF [facility] Last Admin: 06/26/17 16:32 Dose: 166.7 mls/hr Metoprolol Succinate (Toprol Xl) 12.5 mg PO DAILY [facility] Midodrine (Proamatine) 10 mg PO TID [facility] Last Admin: 06/26/17 17:09 Dose: 10 mg Ondansetron HCl (Zofran Inj) 4 mg IVP Q6H PRN PRN Reason: Nausea/Vomiting Last Admin: 06/20/17 21:00 Dose: 4 mg Pantoprazole Sodium (Protonix Susp) 40 mg NG DAILY [facility] Last Admin: 06/26/17 09:47 Dose: 40 mg - Labs Labs: 06/27/17 07:41 06/27/17 07:41 PT 14.3 SECONDS (9.7-12.2) H 06/09/17 06:24 INR 1.3 06/09/17 06:24 APTT 27 SECONDS (21-34) 06/09/17 06:24 - Constitutional Appears: Chronically Ill - Head Exam Head Exam: NORMAL INSPECTION - Eye Exam Eye Exam: Normal appearance - ENT Exam ENT Exam: Normal Exam - Respiratory Exam Respiratory Exam: Rales, NORMAL BREATHING PATTERN. absent: Accessory Muscle Use - Cardiovascular Exam Cardiovascular Exam: REGULAR RHYTHM - GI/Abdominal Exam GI & Abdominal Exam: Distended, Soft, Normal Bowel Sounds. absent: Tenderness - Extremities Exam Extremities Exam: Pedal Edema. absent: Normal Inspection (ecchymosis) - Neurological Exam Neurological Exam: absent: Alert (Awake,respond to pain and touch,nonverbal) - Psychiatric Exam Psychiatric exam: Flat Affect - Skin Skin Exam: Dry. absent: Normal Color (ecchymosis) Assessment and Plan - Assessment and Plan (Free Text) Assessment: This is 76years old female with multiple medical problem including COPD,chronic kidney disease,Afib,cardiomegaly,HTN,dementia and complicated hospital stay was transferred to ICU for hypotension and lethargy.She is getting dialysis TIW. Plan: 1. 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
[2017-06-27] MEDS: Ferrous Sulfate 300 mg/5 mL Liq UD NG SCH (09:16)
[2017-06-27] MEDS: Pantoprazole 40 mg Susp UD NG SCH (09:16)
[2017-06-27 10:04] LABS: METAMYELOCYTE 2 % (0-0); MYELOCYTE 4 % (0-0); NEUTROPHIL 67 % (50-75); TOTAL CELLS COUNTED 100
[2017-06-27 10:05] LABS: NUCLEATED RED BLOOD CELL 3 % (0-0)
[2017-06-27 10:06] LABS: LARGE PLATELETS PRESENT; SPHEROCYTES SLIGHT
[2017-06-27] MEDS: Cefepime IV 1 gm in Dextrose 1 GM/50 ML BAG IVPB SCH (14:13)
--- NOTE | 2017-06-27 17:07 | CP.CCUPN ---
CCU Subjective - Physician Review Events Since Last Encounter (Free Text): 06/27/17 17:04 Patient seen and examined in the intensive care unit. Case discussed with staff in the morning. Status post hemodialysis yesterday Midodrine increased for hypotension Remains lethargic but opened eyes to stimuli Afebrile CCU Objective - Vital Signs / Intake & Output Vital Signs (Last 4 hours): Vital Signs Temp Pulse Resp BP Pulse Ox 06/27/17 16:00 97.3 F L 102 H 25 H 99 06/27/17 15:17 102 H 29 H 85/47 L 95 06/27/17 15:00 110 H 28 H 96 06/27/17 14:17 111 H 28 H 86/45 L 06/27/17 14:00 106 H 29 H 97 06/27/17 13:17 109 H 22 90/39 L Intake and Output (Last 8hrs): Intake & Output 06/27/17 06/27/17 06/27/17 06:59 14:59 22:59 Intake Total 400 550 150 Output Total 0 Balance 400 550 150 Weight 242 lb 0.1 oz Intake: Intake, IV Amount 0 0 50 Left Upper arm 50 Right Medial Port 0 0 Internal Jugular Tube Feeding 400 400 100 Other 150 Output: Stool 0 Other: # Bowel Movements 1 0 0 - Physical Exam Head: Positive for: Atraumatic, Normocephalic Pupils: Positive for: PERRL Extroacular Muscles: Positive for: EOMI Mouth: Positive for: Moist Mucous Membranes Respiratory/Chest: Positive for: Good Air Exchange, Rales, Other (Patient is on 3L NC ). Negative for: Respiratory Distress, Accessory Muscle Use Cardiovascular: Positive for: Regular Rate and Rhythm, Normal S1, S2 Abdomen: Positive for: Normal Bowel Sounds. Negative for: Tenderness Breast/Axillary: Positive for: Discoloration (ecchymosis left lower breast) Upper Extremity: Positive for: Other (Moderate Ecchymosis noted bilaterally ). Negative for: Normal Inspection Lower Extremity: Negative for: Edema, Tenderness, Swelling Neurological: Positive for: Other (follows commands) Skin: Positive for: Warm Psychiatric: Positive for: Lethargic - Medications Active Medications: Active Medications Generic Name Dose Route Start Last Admin Trade Name Freq PRN Reason Stop Dose Admin Aspirin 81 mg 06/24/17 15:30 06/27/17 09:16 Aspirin Chewable PO 81 mg DAILY ALISA Administration Calcium Acetate 667 mg 06/01/17 17:00 06/27/17 16:24 Phoslo PO 667 mg TIDCC ALISA Administration Ferrous Sulfate 300 mg 06/25/17 10:00 06/27/17 09:16 Feosol Liq NG 300 mg DAILY [facility] Administration Heparin Sodium (Porcine) 5,000 units 06/22/17 22:00 06/27/17 09:16 Heparin SC 5,000 units Q12 [facility] Administration Cefepime HCl 1 gm in 50 mls @ 100 mls/hr 06/24/17 15:00 06/27/17 14:13 Maxipime Iv 1 Gm Premix IVPB 100 mls/hr Q24H [facility] Administration Vancomycin HCl 1 gm/ Sodium 250 mls @ 166.7 mls/hr 06/26/17 09:00 06/26/17 16 :32 Chloride IVPB 166.7 mls/hr MWF [facility] Administration Metoprolol Succinate 12.5 mg 06/25/17 09:29 Toprol Xl PO DAILY [facility] Midodrine 10 mg 06/26/17 18:00 06/27/17 13:16 Proamatine PO 10 mg TID ALISA Administration Ondansetron HCl 4 mg 06/15/17 13:57 06/20/17 21:00 Zofran Inj IVP 4 mg Q6H PRN Administration Nausea/Vomiting Pantoprazole Sodium 40 mg 06/25/17 10:00 06/27/17 09:16 Protonix Susp NG 40 mg DAILY [facility] Administration - Patient Studies Lab Studies: Microbiology Studies 06/22/17 12:05 Blood Culture - Final Blood-During Dialysis NO GROWTH AFTER 5 DAYS Gram Stain - Final TEST NOT PERFORMED 06/22/17 11:35 Blood Culture - Final Blood-During Dialysis NO GROWTH AFTER 5 DAYS Gram Stain - Final TEST NOT PERFORMED Lab Studies 06/27/17 06/27/17 Range/Units 07:41 07:41 WBC 19.6 H (4.8-10.8) K/uL RBC 3.72 L (3.80-5.20) Mil/uL Hgb 11.6 (11.0-16.0) g/dL Hct 37.6 (34.0-47.0) % MCV 101.2 H (81.0-99.0) fL MCH 31.2 H (27.0-31.0) pg MCHC 30.9 L (33.0-37.0) g/dL RDW 26.3 H (11.5-14.5) % Plt Count 171 (130-400) K/uL MPV 7.9 (7.2-11.7) fL Neut % (Auto) 73.7 (50.0-75.0) % Lymph % (Auto) 15.8 L (20.0-40.0) % [place] % (Auto) 8.9 (0.0-10.0) % Eos % (Auto) 0.5 (0.0-4.0) % Baso % (Auto) 1.1 (0.0-2.0) % Neut # 14.5 H (1.8-7.0) K/uL Lymph # 3.1 (1.0-4.3) K/uL [place] # 1.7 H (0.0-0.8) K/uL Eos # 0.1 (0.0-0.7) K/uL Baso # 0.2 (0.0-0.2) K/uL Neutrophils % (Manual) 67 (50-75) % Band Neutrophils % 7 H (0-2) % Lymphocytes % (Manual) 12 L (20-40) % Monocytes % (Manual) 8 (0-10) % Metamyelocytes % 2 H (0-0) % Myelocytes % 4 H (0-0) % Nucleated RBC % 3 H (0-0) % Platelet Estimate Normal (NORMAL) Large Platelets Present Polychromasia Slight Hypochromasia (manual) Slight Poikilocytosis (manual Moderate Anisocytosis (manual) Moderate Microcytosis (manual) Slight Macrocytosis (manual) Moderate Spherocytes Slight Ovalocytes Slight Sodium 136 (132-148) mmol/L Potassium 3.3 L (3.6-5.2) mmol/L Chloride 94 L (98-107) mmol/L Carbon Dioxide 30 (22-30) mmol/L Anion Gap 15 (10-20) BUN 33 H (7-17) mg/dL Creatinine 3.3 H (0.7-1.2) mg/dL Est GFR ( Amer) 16 Est GFR (Non-Af Amer) 14 Random Glucose 132 H (65-105) mg/dL Calcium 9.1 (8.6-10.4) mg/dl Phosphorus 2.5 (2.5-4.5) mg/dL Magnesium 2.2 (1.6-2.3) mg/dL Total Bilirubin 1.1 (0.2-1.3) mg/dL AST 38 H (14-36) U/L ALT 28 (9-52) U/L Alkaline Phosphatase 93 (38-126) U/L Total Protein 7.1 (6.3-8.3) g/dL Albumin 3.4 L (3.5-5.0) g/dL Globulin 3.7 (2.2-3.9) gm/dL Albumin/Globulin Ratio 0.9 L (1.0-2.1) Laboratory Results - last 24 hr 06/27/17 06/27/17 07:41 07:41 WBC 19.6 H RBC 3.72 L Hgb 11.6 Hct 37.6 MCV 101.2 H MCH 31.2 H MCHC 30.9 L RDW 26.3 H Plt Count 171 MPV 7.9 Neut % (Auto) 73.7 Lymph % (Auto) 15.8 L [place] % (Auto) 8.9 Eos % (Auto) 0.5 Baso % (Auto) 1.1 Neut # 14.5 H Lymph # 3.1 [place] # 1.7 H Eos # 0.1 Baso # 0.2 Neutrophils % (Manual) 67 Band Neutrophils % 7 H Lymphocytes % (Manual) 12 L Monocytes % (Manual) 8 Metamyelocytes % 2 H Myelocytes % 4 H Nucleated RBC % 3 H Platelet Estimate Normal Large Platelets Present Polychromasia Slight Hypochromasia (manual) Slight Poikilocytosis (manual Moderate Anisocytosis (manual) Moderate Microcytosis (manual) Slight Macrocytosis (manual) Moderate Spherocytes Slight Ovalocytes Slight Sodium 136 Potassium 3.3 L Chloride 94 L Carbon Dioxide 30 Anion Gap 15 BUN 33 H Creatinine 3.3 H Est GFR ( Amer) 16 Est GFR (Non-Af Amer) 14 Random Glucose 132 H Calcium 9.1 Phosphorus 2.5 Magnesium 2.2 Total Bilirubin 1.1 AST 38 H ALT 28 Alkaline Phosphatase 93 Total Protein 7.1 Albumin 3.4 L Globulin 3.7 Albumin/Globulin Ratio 0.9 L Review of Systems - Review of Systems Systems not reviewed;Unavailable: Altered Mental Status Critical Care Progress Note - Ventilator Checklist Head of Bed 30 Degrees: Yes Assessment/Plan (1) Acute respiratory failure with hypoxia and hypercapnia Current Visit: Yes Status: Acute Comment: Continue BiPAP as needed Patient transferred to ICU for hypotension and started on midodrine Continue hemodialysis Continue antibiotics as per infectious disease (2) Atrial fibrillation, new onset Current Visit: Yes Status: Acute (3) COPD exacerbation Current Visit: Yes Status: Acute
--- NOTE | 2017-06-27 21:10 | CP.PCM.PN ---
Subjective - Date & Time of Evaluation Date of Evaluation: 06/27/17 Time of Evaluation: 14:00 - Subjective Subjective: Patient non verbal No cardiac events noted Physical Examination - Constitutional Appears: Non-toxic, No Acute Distress - Head Exam Head Exam: NORMOCEPHALIC - Eye Exam Eye Exam: EOMI - ENT Exam ENT Exam: Mucous Membranes Moist - Neck Exam Neck Exam: Full ROM - Respiratory Exam Respiratory Exam: NORMAL BREATHING PATTERN. absent: Wheezes - Cardiovascular Exam Cardiovascular Exam: Irregular Rhythm, +S1, +S2 - GI/Abdominal Exam GI & Abdominal Exam: Soft, Normal Bowel Sounds - Extremities Exam Extremities Exam: Pedal Edema - Neurological Exam Neurological Exam: absent: Alert - Psychiatric Exam Psychiatric exam: Flat Affect - Skin Skin Exam: Dry, Warm Objective - Vital Signs/Intake and Output Vital Signs (last 24 hours): Temp Pulse Resp BP Pulse Ox 98.5 F 109 H 27 H 94/52 L 97 06/27/17 20:00 06/27/17 20:17 06/27/17 20:17 06/27/17 20:17 06/27/17 20:00 Intake and Output: 06/27/17 06/28/17 18:59 06:59 Intake Total 850 100 Balance 850 100 - Medications Medications: Current Medications Aspirin (Aspirin Chewable) 81 mg PO DAILY [facility] Last Admin: 06/27/17 09:16 Dose: 81 mg Calcium Acetate (Phoslo) 667 mg PO TIDCC [facility] Last Admin: 06/27/17 16:24 Dose: 667 mg Ferrous Sulfate (Feosol Liq) 300 mg NG DAILY [facility] Last Admin: 06/27/17 09:16 Dose: 300 mg Heparin Sodium (Porcine) (Heparin) 5,000 units SC Q12 [facility] Last Admin: 06/27/17 09:16 Dose: 5,000 units Cefepime HCl (Maxipime Iv 1 Gm Premix) 1 gm in 50 mls @ 100 mls/hr IVPB Q24H [facility] Last Admin: 06/27/17 14:13 Dose: 100 mls/hr Vancomycin HCl 1 gm/ Sodium (Chloride) 250 mls @ 166.7 mls/hr IVPB MWF [facility] Last Admin: 06/26/17 16:32 Dose: 166.7 mls/hr Metoprolol Succinate (Toprol Xl) 12.5 mg PO DAILY [facility] Midodrine (Proamatine) 10 mg PO TID [facility] Last Admin: 06/27/17 17:08 Dose: 10 mg Ondansetron HCl (Zofran Inj) 4 mg IVP Q6H PRN PRN Reason: Nausea/Vomiting Last Admin: 06/20/17 21:00 Dose: 4 mg Pantoprazole Sodium (Protonix Susp) 40 mg NG DAILY [facility] Last Admin: 06/27/17 09:16 Dose: 40 mg - Labs Labs: 06/27/17 07:41 06/27/17 07:41 PT 14.3 SECONDS (9.7-12.2) H 06/09/17 06:24 INR 1.3 06/09/17 06:24 APTT 27 SECONDS (21-34) 06/09/17 06:24 Assessment and Plan - Assessment and Plan (Free Text) Assessment: Atrial fibrillation Assessment & Plan: Patient is currently off Diltiazem due to hypotension. CHADs Score of 5- Patient off Lovenox due to anemia and ecchymosis. Will need to determine anticoagulation measures. At this time, on DVT prophylaxis solely. ASA On Feosol for Anemia Status: Acute Hypotension Assessment & Plan: Stable Avoid excess fluids due to CHF Recommendations for decreased goal due to hypotension Continue to monitor Status: Acute CHF (congestive heart failure) Assessment & Plan: CXR 06/23 : stable cardiomegaly, improved history volume EF 57.8% Cont to monitor on Lasix PRN Status: Acute ESRD on HD MWF Assessment & Plan: Patient to have HD today Recommendations decreased goal due to hypotension Status: Chronic Elevated troponin Assessment & Plan: On admission elevated; likely secondary to then CHF exacerbation Continue to monitor Status: Acute Anemia Assessment & Plan: On Feosol for Anemia Status: Acute Prophylactic measure Assessment & Plan: Heparin SC 5000 Q12 Protonix 40 mg PO daily Status: Acute
[2017-06-28 07:04] LABS: BASO # 0.1 K/uL (0.0-0.2); BASO % 0.6 % (0.0-2.0); EOS # 0.1 K/uL (0.0-0.7); EOS % 0.5 % (0.0-4.0); HEMATOCRIT 36.3 % (34.0-47.0); LYMPH # 3.9 K/uL (1.0-4.3); MEAN CELL VOLUME 100.1 fL (81.0-99.0); MEAN CORPUSCULAR HEMOGLOBIN 31.4 pg (27.0-31.0); MEAN CORPUSCULAR HGB CONC 31.4 g/dL (33.0-37.0); MONO # 2.1 K/uL (0.0-0.8); MONO % 8.4 % (0.0-10.0); NRBC % 2.8 % (0.0-2.0); RED CELL DISTRIBUTION WIDTH 25.9 % (11.5-14.5); WHITE BLOOD COUNT 24.6 K/uL (4.8-10.8)
[2017-06-28 07:09] LABS: POTASSIUM 3.2 mmol/L (3.6-5.2)
[2017-06-28 07:11] LABS: ALB/GLOB RATIO 0.9 (1.0-2.1); TOTAL PROTEIN 7.3 g/dL (6.3-8.3)
[2017-06-28 07:12] LABS: CALCIUM 9.4 mg/dl (8.6-10.4); MAGNESIUM 2.6 mg/dL (1.6-2.3); PHOSPHOROUS 1.6 mg/dL (2.5-4.5)
[2017-06-28] MEDS: Ferrous Sulfate 300 mg/5 mL Liq UD NG SCH (09:11)
[2017-06-28] MEDS: Pantoprazole 40 mg Susp UD NG SCH (09:12)
--- NOTE | 2017-06-28 09:52 | CP.PCM.PN ---
Subjective - Date & Time of Evaluation Date of Evaluation: 06/28/17 Time of Evaluation: 09:51 - Subjective Subjective: Lying on bed without distress,nonverbal,Remains lethargic. D/W RN at bedside Objective - Vital Signs/Intake and Output Vital Signs (last 24 hours): Temp Pulse Resp BP Pulse Ox 99.1 F 107 H 30 H 98/53 L 99 06/28/17 04:00 06/28/17 06:35 06/28/17 06:35 06/28/17 06:35 06/28/17 06:35 Intake and Output: 06/28/17 06/28/17 06:59 18:59 Intake Total 650 50 Balance 650 50 - Medications Medications: Current Medications Aspirin (Aspirin Chewable) 81 mg PO DAILY [facility] Last Admin: 06/28/17 09:11 Dose: 81 mg Calcium Acetate (Phoslo) 667 mg PO TIDCC [facility] Last Admin: 06/28/17 08:48 Dose: 667 mg Ferrous Sulfate (Feosol Liq) 300 mg NG DAILY [facility] Last Admin: 06/28/17 09:11 Dose: 300 mg Cefepime HCl (Maxipime Iv 1 Gm Premix) 1 gm in 50 mls @ 100 mls/hr IVPB Q24H [facility] Last Admin: 06/27/17 14:13 Dose: 100 mls/hr Vancomycin HCl 1 gm/ Sodium (Chloride) 250 mls @ 166.7 mls/hr IVPB MWF [facility] Last Admin: 06/26/17 16:32 Dose: 166.7 mls/hr Metoprolol Succinate (Toprol Xl) 12.5 mg PO DAILY [facility] Midodrine (Proamatine) 10 mg PO TID [facility] Last Admin: 06/28/17 09:12 Dose: 10 mg Ondansetron HCl (Zofran Inj) 4 mg IVP Q6H PRN PRN Reason: Nausea/Vomiting Last Admin: 06/20/17 21:00 Dose: 4 mg Pantoprazole Sodium (Protonix Susp) 40 mg NG DAILY [facility] Last Admin: 06/28/17 09:12 Dose: 40 mg - Labs Labs: 06/28/17 06:56 06/28/17 06:56 PT 14.3 SECONDS (9.7-12.2) H 06/09/17 06:24 INR 1.3 06/09/17 06:24 APTT 27 SECONDS (21-34) 06/09/17 06:24 - Constitutional Appears: Chronically Ill - Head Exam Head Exam: ATRAUMATIC - Eye Exam Eye Exam: Normal appearance - ENT Exam ENT Exam: Normal Exam - Neck Exam Neck Exam: Normal Inspection - Respiratory Exam Respiratory Exam: Rales, NORMAL BREATHING PATTERN. absent: Accessory Muscle Use - Cardiovascular Exam Cardiovascular Exam: REGULAR RHYTHM - GI/Abdominal Exam GI & Abdominal Exam: Distended, Soft, Normal Bowel Sounds - Extremities Exam Extremities Exam: absent: Pedal Edema - Neurological Exam Neurological Exam: absent: Alert, Oriented x3 - Psychiatric Exam Psychiatric exam: absent: Agitated - Skin Skin Exam: Dry Assessment and Plan - Assessment and Plan (Free Text) Assessment: This is 76years old female with multiple medical problem including COPD,chronic kidney disease,Afib,cardiomegaly,HTN,dementia and complicated hospital stay was transferred to ICU for hypotension and lethargy.ESRD on HD Plan: 1. Hypotension,Atrial fibrillarion,Hx of CHF s/p dialysis on 06/26/2017 BP improving .On Midodrine Follow nephrology 2.Afib and chronic diastolic heart failure On asprin,Not on anticoagulation due to anemia and ecchymosis metoprolol on hold,continue oxygen,BIPAP as needed 3.ESRD.on dialysis,continue phoslo and procrit. 4.Anemia-continue Iron and procrit,likely due to ESRD 5.Leukocytosis with bands,elevated procalcitonin Continue cefepime and vanco WBC is going up,no fever. 6.Altered mental status and diet NG feeding 7.COPD s/p Acute hypercapnic hypoxic respiratory failure BIPAP as needed 8.Sacral pressure sore-wound care and turn pt Q2 9. prophylasix DVT - SCD GI -protonix 9.Code status-Full code now( Recent conversation with her son)
[2017-06-28] MEDS ORDERED: SODIUM CHLORIDE IV ONE (10:29)
[2017-06-28] MEDS ORDERED: POTASSIUM PHOSPHATE IV ONE (10:29)
[2017-06-28] MEDS: Cefepime IV 1 gm in Dextrose 1 GM/50 ML BAG IVPB SCH (14:30)
--- NOTE | 2017-06-28 15:41 | CP.PCM.PN ---
Subjective - Date & Time of Evaluation Date of Evaluation: 06/28/17 Time of Evaluation: 08:00 - Subjective Subjective: Status post hemodialysis yesterday Midodrine increased for hypotension Remains lethargic but opened eyes to stimuli Afebrile Objective - Vital Signs/Intake and Output Vital Signs (last 24 hours): Temp Pulse Resp BP Pulse Ox 97.5 F L 109 H 25 H 104/58 L 95 06/28/17 12:00 06/28/17 15:00 06/28/17 15:00 06/28/17 14:17 06/28/17 15:00 Intake and Output: 06/28/17 06/28/17 06:59 18:59 Intake Total 650 750 Balance 650 750 - Medications Medications: Current Medications Aspirin (Aspirin Chewable) 81 mg PO DAILY [facility] Last Admin: 06/28/17 09:11 Dose: 81 mg Calcium Acetate (Phoslo) 667 mg PO TIDCC [facility] Last Admin: 06/28/17 12:05 Dose: 667 mg Ferrous Sulfate (Feosol Liq) 300 mg NG DAILY [facility] Last Admin: 06/28/17 09:11 Dose: 300 mg Cefepime HCl (Maxipime Iv 1 Gm Premix) 1 gm in 50 mls @ 100 mls/hr IVPB Q24H [facility] Last Admin: 06/28/17 14:30 Dose: 100 mls/hr Vancomycin HCl 1 gm/ Sodium (Chloride) 250 mls @ 166.7 mls/hr IVPB MWF [facility] Last Admin: 06/26/17 16:32 Dose: 166.7 mls/hr Metoprolol Succinate (Toprol Xl) 12.5 mg PO DAILY [facility] Midodrine (Proamatine) 10 mg PO TID [facility] Last Admin: 06/28/17 14:57 Dose: 10 mg Ondansetron HCl (Zofran Inj) 4 mg IVP Q6H PRN PRN Reason: Nausea/Vomiting Last Admin: 06/20/17 21:00 Dose: 4 mg Pantoprazole Sodium (Protonix Susp) 40 mg NG DAILY [facility] Last Admin: 06/28/17 09:12 Dose: 40 mg - Labs Labs: 06/28/17 06:56 06/28/17 06:56 PT 14.3 SECONDS (9.7-12.2) H 06/09/17 06:24 INR 1.3 06/09/17 06:24 APTT 27 SECONDS (21-34) 06/09/17 06:24 - Constitutional Appears: Non-toxic, Chronically Ill - Head Exam Head Exam: NORMOCEPHALIC - Eye Exam Eye Exam: absent: Scleral icterus - ENT Exam ENT Exam: Mucous Membranes Dry - Neck Exam Neck Exam: absent: Lymphadenopathy - Respiratory Exam Respiratory Exam: Decreased Breath Sounds - Cardiovascular Exam Cardiovascular Exam: REGULAR RHYTHM - GI/Abdominal Exam GI & Abdominal Exam: Distended Assessment and Plan (1) Acute respiratory failure with hypoxia and hypercapnia Status: Acute (2) Atrial fibrillation, new onset Status: Acute (3) COPD exacerbation Status: Acute (4) Dementia Status: Acute (5) ESRD (end stage renal disease) Status: Acute
--- NOTE | 2017-06-28 17:52 | CP.CCUPN ---
CCU Subjective - Physician Review Events Since Last Encounter (Free Text): 06/28/17 17:50 Patient seen and examined in the intensive care unit. Case discussed with staff in the morning. Less hypotensive Remains lethargic but opened eyes to stimuli Afebrile Status post-hemodialysis on Thursday CCU Objective - Vital Signs / Intake & Output Vital Signs (Last 4 hours): Vital Signs Temp Pulse Resp BP Pulse Ox 06/28/17 16:17 110 H 28 H 95/59 L 96 06/28/17 16:00 98.5 F 105 H 30 H 110/54 L 96 06/28/17 15:17 111 H 28 H 110/54 L 96 06/28/17 15:00 109 H 25 H 95 06/28/17 14:17 111 H 32 H 104/58 L 97 06/28/17 14:00 116 H 12 Intake and Output (Last 8hrs): Intake & Output 06/28/17 06/28/17 06/28/17 06:59 14:59 22:59 Intake Total 400 588 212 Balance 400 588 212 Weight 243 lb 0.8 oz Intake: Intake, IV Amount 188 112 Left Upper arm 188 112 Tube Feeding 400 400 100 Other: # Bowel Movements 0 1 0 - Physical Exam Head: Positive for: Atraumatic, Normocephalic Pupils: Positive for: PERRL Extroacular Muscles: Positive for: EOMI Mouth: Positive for: Moist Mucous Membranes Respiratory/Chest: Positive for: Good Air Exchange, Rales, Other (Patient is on 3L NC ). Negative for: Respiratory Distress, Accessory Muscle Use Cardiovascular: Positive for: Regular Rate and Rhythm, Normal S1, S2 Abdomen: Positive for: Normal Bowel Sounds. Negative for: Tenderness Breast/Axillary: Positive for: Discoloration (ecchymosis left lower breast) Upper Extremity: Positive for: Other (Moderate Ecchymosis noted bilaterally ). Negative for: Normal Inspection Lower Extremity: Negative for: Edema, Tenderness, Swelling Neurological: Positive for: Other (follows commands) Skin: Positive for: Warm Psychiatric: Positive for: Lethargic - Medications Active Medications: Active Medications Generic Name Dose Route Start Last Admin Trade Name Freq PRN Reason Stop Dose Admin Aspirin 81 mg 06/24/17 15:30 06/28/17 09:11 Aspirin Chewable PO 81 mg DAILY [facility] Administration Calcium Acetate 667 mg 06/01/17 17:00 06/28/17 16:45 Phoslo PO 667 mg TIDCC ALISA Administration Ferrous Sulfate 300 mg 06/25/17 10:00 06/28/17 09:11 Feosol Liq NG 300 mg DAILY [facility] Administration Cefepime HCl 1 gm in 50 mls @ 100 mls/hr 06/24/17 15:00 06/28/17 14:30 Maxipime Iv 1 Gm Premix IVPB 100 mls/hr Q24H [facility] Administration Vancomycin HCl 1 gm/ Sodium 250 mls @ 166.7 mls/hr 06/26/17 09:00 06/26/17 16 :32 Chloride IVPB 166.7 mls/hr MWF [facility] Administration Metronidazole 500 mg in 100 mls @ 100 mls/hr 06/28/17 22:00 Flagyl IVPB Q8 [facility] Metoprolol Succinate 12.5 mg 06/25/17 09:29 Toprol Xl PO DAILY [facility] Midodrine 10 mg 06/26/17 18:00 06/28/17 14:57 Proamatine PO 10 mg TID ALISA Administration Ondansetron HCl 4 mg 06/15/17 13:57 06/20/17 21:00 Zofran Inj IVP 4 mg Q6H PRN Administration Nausea/Vomiting Pantoprazole Sodium 40 mg 06/25/17 10:00 06/28/17 09:12 Protonix Susp NG 40 mg DAILY [facility] Administration - Patient Studies Lab Studies: Microbiology Studies 06/22/17 12:05 Blood Culture - Final Blood-During Dialysis NO GROWTH AFTER 5 DAYS Gram Stain - Final TEST NOT PERFORMED 06/22/17 11:35 Blood Culture - Final Blood-During Dialysis NO GROWTH AFTER 5 DAYS Gram Stain - Final TEST NOT PERFORMED Lab Studies 06/28/17 06/28/17 06/28/17 Range/Units 12:33 06:56 06:56 WBC 24.6 H (4.8-10.8) K/uL RBC 3.63 L (3.80-5.20) Mil/uL Hgb 11.4 (11.0-16.0) g/dL Hct 36.3 (34.0-47.0) % MCV 100.1 H (81.0-99.0) fL MCH 31.4 H (27.0-31.0) pg MCHC 31.4 L (33.0-37.0) g/dL RDW 25.9 H (11.5-14.5) % Plt Count 206 (130-400) K/uL MPV 8.0 (7.2-11.7) fL Neut % (Auto) 74.5 (50.0-75.0) % Lymph % (Auto) 16.0 L (20.0-40.0) % [place] % (Auto) 8.4 (0.0-10.0) % Eos % (Auto) 0.5 (0.0-4.0) % Baso % (Auto) 0.6 (0.0-2.0) % Neut # 18.3 H (1.8-7.0) K/uL Lymph # 3.9 (1.0-4.3) K/uL [place] # 2.1 H (0.0-0.8) K/uL Eos # 0.1 (0.0-0.7) K/uL Baso # 0.1 (0.0-0.2) K/uL Sodium 133 (132-148) mmol/L Potassium 3.2 L (3.6-5.2) mmol/L Chloride 96 L (98-107) mmol/L Carbon Dioxide 24 (22-30) mmol/L Anion Gap 16 (10-20) BUN 53 H (7-17) mg/dL Creatinine 4.1 H (0.7-1.2) mg/dL Est GFR ( Amer) 13 Est GFR (Non-Af Amer) 11 Random Glucose 118 H (65-105) mg/dL Calcium 9.4 (8.6-10.4) mg/dl Phosphorus 1.6 L (2.5-4.5) mg/dL Magnesium 2.6 H (1.6-2.3) mg/dL Total Bilirubin 1.0 (0.2-1.3) mg/dL AST 47 H D (14-36) U/L ALT 23 (9-52) U/L Alkaline Phosphatase 108 (38-126) U/L Total Protein 7.3 (6.3-8.3) g/dL Albumin 3.5 (3.5-5.0) g/dL Globulin 3.9 (2.2-3.9) gm/dL Albumin/Globulin Ratio 0.9 L (1.0-2.1) Procalcitonin 2.71 H (0.19-0.49) NG/ML Laboratory Results - last 24 hr 06/28/17 06/28/17 06/28/17 06:56 06:56 12:33 WBC 24.6 H RBC 3.63 L Hgb 11.4 Hct 36.3 MCV 100.1 H MCH 31.4 H MCHC 31.4 L RDW 25.9 H Plt Count 206 MPV 8.0 Neut % (Auto) 74.5 Lymph % (Auto) 16.0 L [place] % (Auto) 8.4 Eos % (Auto) 0.5 Baso % (Auto) 0.6 Neut # 18.3 H Lymph # 3.9 [place] # 2.1 H Eos # 0.1 Baso # 0.1 Sodium 133 Potassium 3.2 L Chloride 96 L Carbon Dioxide 24 Anion Gap 16 BUN 53 H Creatinine 4.1 H Est GFR ( Amer) 13 Est GFR (Non-Af Amer) 11 Random Glucose 118 H Calcium 9.4 Phosphorus 1.6 L Magnesium 2.6 H Total Bilirubin 1.0 AST 47 H D ALT 23 Alkaline Phosphatase 108 Total Protein 7.3 Albumin 3.5 Globulin 3.9 Albumin/Globulin Ratio 0.9 L Procalcitonin 2.71 H Review of Systems - Review of Systems Systems not reviewed;Unavailable: Altered Mental Status Assessment/Plan (1) Acute respiratory failure with hypoxia and hypercapnia Current Visit: Yes Status: Acute Comment: BiPAP as needed Continue hemodialysis Continue antibiotics as per infectious disease Follow-up pro-calcitonin level (2) Atrial fibrillation, new onset Current Visit: Yes Status: Acute (3) COPD exacerbation Current Visit: Yes Status: Acute
--- NOTE | 2017-06-28 20:14 | CP.PCM.PN ---
Subjective - Date & Time of Evaluation Date of Evaluation: 06/28/17 Time of Evaluation: 13:30 - Subjective Subjective: Patient non verbal Not in distress Physical Examination - Constitutional Appears: Non-toxic, No Acute Distress - Head Exam Head Exam: NORMOCEPHALIC - Eye Exam Eye Exam: EOMI - ENT Exam ENT Exam: Mucous Membranes Moist - Neck Exam Neck Exam: Full ROM - Respiratory Exam Respiratory Exam: NORMAL BREATHING PATTERN. absent: Wheezes - Cardiovascular Exam Cardiovascular Exam: Irregular Rhythm, +S1, +S2 - GI/Abdominal Exam GI & Abdominal Exam: Soft, Normal Bowel Sounds - Extremities Exam Extremities Exam: Pedal Edema - Neurological Exam Neurological Exam: absent: Alert - Psychiatric Exam Psychiatric exam: Flat Affect - Skin Skin Exam: Dry, Warm Objective - Vital Signs/Intake and Output Vital Signs (last 24 hours): Temp Pulse Resp BP Pulse Ox 98.5 F 109 H 26 H 113/53 L 95 06/28/17 16:00 06/28/17 19:17 06/28/17 19:17 06/28/17 19:17 06/28/17 19:17 Intake and Output: 06/28/17 06/29/17 18:59 06:59 Intake Total 900 50 Balance 900 50 - Medications Medications: Current Medications Aspirin (Aspirin Chewable) 81 mg PO DAILY [facility] Last Admin: 06/28/17 09:11 Dose: 81 mg Calcium Acetate (Phoslo) 667 mg PO TIDCC [facility] Last Admin: 06/28/17 16:45 Dose: 667 mg Ferrous Sulfate (Feosol Liq) 300 mg NG DAILY [facility] Last Admin: 06/28/17 09:11 Dose: 300 mg Cefepime HCl (Maxipime Iv 1 Gm Premix) 1 gm in 50 mls @ 100 mls/hr IVPB Q24H [facility] Last Admin: 06/28/17 14:30 Dose: 100 mls/hr Vancomycin HCl 1 gm/ Sodium (Chloride) 250 mls @ 166.7 mls/hr IVPB MWF [facility] Last Admin: 06/26/17 16:32 Dose: 166.7 mls/hr Metronidazole (Flagyl) 500 mg in 100 mls @ 100 mls/hr IVPB Q8 [facility] Metoprolol Succinate (Toprol Xl) 12.5 mg PO DAILY [facility] Midodrine (Proamatine) 10 mg PO TID [facility] Last Admin: 06/28/17 18:11 Dose: 10 mg Ondansetron HCl (Zofran Inj) 4 mg IVP Q6H PRN PRN Reason: Nausea/Vomiting Last Admin: 06/20/17 21:00 Dose: 4 mg Pantoprazole Sodium (Protonix Susp) 40 mg NG DAILY [facility] Last Admin: 06/28/17 09:12 Dose: 40 mg - Labs Labs: 06/28/17 06:56 06/28/17 06:56 PT 14.3 SECONDS (9.7-12.2) H 06/09/17 06:24 INR 1.3 06/09/17 06:24 APTT 27 SECONDS (21-34) 06/09/17 06:24 Assessment and Plan - Assessment and Plan (Free Text) Assessment: Atrial fibrillation Assessment & Plan: Patient is currently off Diltiazem due to hypotension. CHADs Score of 5- Patient off Lovenox due to anemia and ecchymosis. Will need to determine anticoagulation measures. At this time, on DVT prophylaxis solely. ASA On Feosol for Anemia Status: Acute CHF (congestive heart failure) Assessment & Plan: CXR 06/23 : stable cardiomegaly, improved history volume EF 57.8% Cont to monitor on Lasix PRN Status: Acute ESRD on HD MWF Assessment & Plan: Patient to have HD today Recommendations decreased goal due to hypotension Status: Chronic Elevated troponin Assessment & Plan: On admission elevated; likely secondary to then CHF exacerbation Continue to monitor Status: Acute Anemia Assessment & Plan: On Feosol for Anemia Status: Acute Prophylactic measure Assessment & Plan: Heparin SC 5000 Q12 Protonix 40 mg PO daily Status: Acute
[2017-06-28] MEDS: metroNIDAZOLE IV 500 mg/100 ml 500 MG/100 ML BAG IVPB SCH (21:19)
[2017-06-29] MEDS: metroNIDAZOLE IV 500 mg/100 ml 500 MG/100 ML BAG IVPB SCH ×3 (05:29→21:19)
[2017-06-29 06:41] LABS: BASO # 0.1 K/uL (0.0-0.2); BASO % 0.4 % (0.0-2.0); EOS # 0.1 K/uL (0.0-0.7); EOS % 0.3 % (0.0-4.0); HEMATOCRIT 35.2 % (34.0-47.0); LYMPH # 4.3 K/uL (1.0-4.3); LYMPH % 17.1 % (20.0-40.0); MEAN CELL VOLUME 101.7 fL (81.0-99.0); MEAN CORPUSCULAR HEMOGLOBIN 31.8 pg (27.0-31.0); MEAN CORPUSCULAR HGB CONC 31.3 g/dL (33.0-37.0); MEAN PLATELET VOLUME 8.2 fL (7.2-11.7); MONO % 8.1 % (0.0-10.0); NRBC % 4.4 % (0.0-2.0); PLATELET COUNT 214 K/uL (130-400); WHITE BLOOD COUNT 25.3 K/uL (4.8-10.8)
[2017-06-29 06:58] LABS: POTASSIUM 3.9 mmol/L (3.6-5.2)
[2017-06-29 07:00] LABS: ALB/GLOB RATIO 0.9 (1.0-2.1); BILIRUBIN,TOTAL 0.9 mg/dL (0.2-1.3); TOTAL PROTEIN 7.1 g/dL (6.3-8.3)
[2017-06-29 07:01] LABS: CALCIUM 9.1 mg/dl (8.6-10.4); MAGNESIUM 2.7 mg/dL (1.6-2.3); PHOSPHOROUS 3.3 mg/dL (2.5-4.5)
[2017-06-29 08:43] LABS: EOSINOPHIL 1 % (0-4); METAMYELOCYTE 2 % (0-0); MYELOCYTE 1 % (0-0); NEUTROPHIL 68 % (50-75); NUCLEATED RED BLOOD CELL 8 % (0-0); TOTAL CELLS COUNTED 100
--- NOTE | 2017-06-29 09:10 | CP.PCM.PN ---
Subjective - Date & Time of Evaluation Date of Evaluation: 06/29/17 Time of Evaluation: 08:55 - Subjective Subjective: Patient was non verbal and non responsive to commands this morning. She did not open her eyes to stimuli. From what I am being told her mental status has been this way for several days now. She has been moved back to the ICU on 06/22 after she developed hypotention following HD. She was also hypercapnic at that time as well. Since then has been on Midodrine, the systolic BPs often range from 70s to 90s. She is about to receive HD this morning. Unfortunately the overall prognosis is very poor at this time. I spoke with the patient POA/next of kin Juan Carlos Hughes [phone] and updated him. As per our conversation he realizes the prognosis is very poor he is talking to his other family members with reguards to Code Status. Objective - Vital Signs/Intake and Output Vital Signs (last 24 hours): Temp Pulse Resp BP Pulse Ox 99.4 F 113 H 27 H 87/46 L 96 06/29/17 04:00 06/29/17 07:17 06/29/17 07:17 06/29/17 07:17 06/29/17 07:17 Intake and Output: 06/29/17 06/29/17 06:59 18:59 Intake Total 850 50 Balance 850 50 - Medications Medications: Current Medications Aspirin (Aspirin Chewable) 81 mg PO DAILY [facility] Last Admin: 06/28/17 09:11 Dose: 81 mg Calcium Acetate (Phoslo) 667 mg PO TIDCC [facility] Last Admin: 06/28/17 16:45 Dose: 667 mg Ferrous Sulfate (Feosol Liq) 300 mg NG DAILY [facility] Last Admin: 06/28/17 09:11 Dose: 300 mg Cefepime HCl (Maxipime Iv 1 Gm Premix) 1 gm in 50 mls @ 100 mls/hr IVPB Q24H [facility] Last Admin: 06/28/17 14:30 Dose: 100 mls/hr Vancomycin HCl 1 gm/ Sodium (Chloride) 250 mls @ 166.7 mls/hr IVPB MWF [facility] Last Admin: 06/26/17 16:32 Dose: 166.7 mls/hr Metronidazole (Flagyl) 500 mg in 100 mls @ 100 mls/hr IVPB Q8 [facility] Last Admin: 06/29/17 05:29 Dose: 100 mls/hr Metoprolol Succinate (Toprol Xl) 12.5 mg PO DAILY [facility] Midodrine (Proamatine) 10 mg PO TID [facility] Last Admin: 06/28/17 18:11 Dose: 10 mg Ondansetron HCl (Zofran Inj) 4 mg IVP Q6H PRN PRN Reason: Nausea/Vomiting Last Admin: 06/20/17 21:00 Dose: 4 mg Pantoprazole Sodium (Protonix Susp) 40 mg NG DAILY [facility] Last Admin: 06/28/17 09:12 Dose: 40 mg - Labs Labs: 06/29/17 06:28 06/29/17 06:28 PT 14.3 SECONDS (9.7-12.2) H 06/09/17 06:24 INR 1.3 06/09/17 06:24 APTT 27 SECONDS (21-34) 06/09/17 06:24 - Constitutional Appears: Unkempt, Cachectic, Chronically Ill - ENT Exam ENT Exam: Mucous Membranes Dry - Respiratory Exam Respiratory Exam: Decreased Breath Sounds, Rhonchi - Cardiovascular Exam Cardiovascular Exam: REGULAR RHYTHM Additional comments: Currently regular - Neurological Exam Neurological Exam: Altered. absent: Alert, Awake, CN II-XII Intact, Oriented x3 Neuro motor strength exam: Left Upper Extremity: 0, Right Upper Extremity: 0, Left Lower Extremity: 0, Right Lower Extremity: 0 - Skin Skin Exam: Pallor, Warm Assessment and Plan - Assessment and Plan (Free Text) Assessment: Hypotention: 06/29: Currently sytolic BPs range in the 80s to 90s range. She was moved back to the ICU after her BP became low following HD. She is on Midodrine at this time TID On IV abx, there is a high WBC. Cultures have been negative so far. ESRD 06/29: Pending HD again today Nephrology Consult, Dr. Anderson Patient developed acute renal failure Patient is currently on hemodialysis - MWF * Dr. Tristan consulted for Perma Cath placement;placed; patient received dialysis on 06/13 Renal US 06/11/17 - limited study due to patient's body habitus. No calculus or hydronephrosis identified b/l. Probable right renal cortical cyst measures approximately 0.7 x 0.4 x 0.8 cm AVF on 06/15/17 - bruit is present in right arm. Currently on HD MWF S/P LEFT PERMACATH on 06/18/17 - dialysis today Atrial fibrillation, new onset 06/29: Currently NSR on telemetry HR 100s. Not on anticogulation due to previous heavy bleeding. Rate controlled - Diltiazem 30mg PO Q6H Not on anticoagulation because of anemia and ecchymosis patient will need cardiology f/u on discharge On Ferrous Sulfate 325mg PO daily for Anemia CHF (congestive heart failure); diastolic dysfunction with preserved EF 06/29 Currently requiring HD CXR 06/09 : stable cardiomegaly, small bilateral pleural effusions noted EF 57.8% Cont to monitor on Lasix PRN Sacral Decubitus Ulcer - stage 2 Located on the right upper buttocks Started on Aloe Weston lotion TID Turn pt every 2 hours Pneumonia 06/29: WBC 25, there is an elevated procalcitonin as well as some bands. Acute respiratory failure with hypoxia and hypercapnia; resolved Repeated episodes of hypercapnic respiratory distress. Patient was recently intubated and extubated twice. Now patient is monitored on oxygen by nasal cannula. Prophylactic measure Heparin SC 5000 Q12 Protonix 40 mg PO daily
[2017-06-29] MEDS: Ferrous Sulfate 300 mg/5 mL Liq UD NG SCH (09:55)
[2017-06-29] MEDS: Pantoprazole 40 mg Susp UD NG SCH (09:55)
--- NOTE | 2017-06-29 10:49 | CP.CCUPN ---
CCU Subjective - Physician Review Subjective (Free Text): Patient was seen and examined at bedside. Patient is non-verbal and does not follow command. but responds to touch stimuli. Unable to evaluate adequate ROS as patient does not speak nor utilize head motion to answer questions. CCU Objective - Vital Signs / Intake & Output Vital Signs (Last 4 hours): Vital Signs Temp Pulse Pulse Resp BP BP Pulse Ox 06/29/17 10:45 87/48 L 06/29/17 10:20 79/45 L 06/29/17 10:05 82/48 L 06/29/17 09:50 87/44 L 06/29/17 09:35 97/44 L 06/29/17 09:20 98.5 F 104 H 25 H 81/39 L 97 06/29/17 09:10 98.5 F 104 H 25 H 87/47 L 06/29/17 07:17 113 H 27 H 87/46 L 96 Intake and Output (Last 8hrs): Intake & Output 06/28/17 06/29/17 06/29/17 22:59 06:59 14:59 Intake Total 612 550 100 Balance 612 550 100 Weight 235 lb 6.4 oz Intake: Intake, IV Amount 212 100 Left Upper arm 212 100 Tube Feeding 400 400 100 Other 50 Other: # Bowel Movements 0 0 0 - Physical Exam Head: Positive for: Atraumatic, Normocephalic Extroacular Muscles: Positive for: EOMI Mouth: Positive for: Moist Mucous Membranes Respiratory/Chest: Positive for: Good Air Exchange, Rales, Other (Patient is on 3L NC ). Negative for: Respiratory Distress, Accessory Muscle Use Cardiovascular: Positive for: Regular Rate and Rhythm, Normal S1, S2 Abdomen: Positive for: Normal Bowel Sounds. Negative for: Tenderness, Peritoneal Signs Upper Extremity: Positive for: Other (Moderate Ecchymosis noted bilaterally ). Negative for: Normal Inspection Lower Extremity: Positive for: Swelling. Negative for: Edema, Tenderness Neurological: Positive for: Other (Non-verbal and does not follow command ). Negative for: Speech Normal Skin: Positive for: Warm Psychiatric: Positive for: Lethargic. Negative for: Alert, Oriented x 3 - Medications Active Medications: Active Medications Generic Name Dose Route Start Last Admin Trade Name Freq PRN Reason Stop Dose Admin Aspirin 81 mg 06/24/17 15:30 06/29/17 09:55 Aspirin Chewable PO 81 mg DAILY [facility] Administration Calcium Acetate 667 mg 06/01/17 17:00 06/29/17 09:56 Phoslo PO 667 mg TIDCC [facility] Administration Ferrous Sulfate 300 mg 06/25/17 10:00 06/29/17 09:55 Feosol Liq NG 300 mg DAILY [facility] Administration Cefepime HCl 1 gm in 50 mls @ 100 mls/hr 06/24/17 15:00 06/28/17 14:30 Maxipime Iv 1 Gm Premix IVPB 100 mls/hr Q24H [facility] Administration Vancomycin HCl 1 gm/ Sodium 250 mls @ 166.7 mls/hr 06/26/17 09:00 06/29/17 09 :58 Chloride IVPB 166.7 mls/hr MWF [facility] Administration Metronidazole 500 mg in 100 mls @ 100 mls/hr 06/28/17 22:00 06/29/17 05:29 Flagyl IVPB 100 mls/hr Q8 [facility] Administration Metoprolol Succinate 12.5 mg 06/25/17 09:29 Toprol Xl PO DAILY [facility] Midodrine 10 mg 06/26/17 18:00 06/29/17 09:55 Proamatine PO 10 mg TID [facility] Administration Pantoprazole Sodium 40 mg 06/25/17 10:00 06/29/17 09:55 Protonix Susp NG 40 mg DAILY [facility] Administration - Patient Studies Lab Studies: Lab Studies 06/29/17 06/29/17 06/28/17 Range/Units 06:28 06:28 15:50 WBC 25.3 H (4.8-10.8) K/uL RBC 3.46 L (3.80-5.20) Mil/uL Hgb 11.0 (11.0-16.0) g/dL Hct 35.2 (34.0-47.0) % MCV 101.7 H (81.0-99.0) fL MCH 31.8 H (27.0-31.0) pg MCHC 31.3 L (33.0-37.0) g/dL RDW 26.0 H (11.5-14.5) % Plt Count 214 (130-400) K/uL MPV 8.2 (7.2-11.7) fL Neut % (Auto) 74.1 (50.0-75.0) % Lymph % (Auto) 17.1 L (20.0-40.0) % Cocke % (Auto) 8.1 (0.0-10.0) % Eos % (Auto) 0.3 (0.0-4.0) % Baso % (Auto) 0.4 (0.0-2.0) % Neut # 18.7 H (1.8-7.0) K/uL Lymph # 4.3 (1.0-4.3) K/uL Cocke # 2.0 H (0.0-0.8) K/uL Eos # 0.1 (0.0-0.7) K/uL Baso # 0.1 (0.0-0.2) K/uL Neutrophils % (Manual) 68 (50-75) % Band Neutrophils % 8 H (0-2) % Lymphocytes % (Manual) 13 L (20-40) % Monocytes % (Manual) 7 (0-10) % Eosinophils % (Manual) 1 (0-4) % Metamyelocytes % 2 H (0-0) % Myelocytes % 1 H (0-0) % Nucleated RBC % 8 H (0-0) % Toxic Granulation Present Platelet Estimate Normal (NORMAL) Polychromasia Slight Poikilocytosis (manual Slight Basophilic Stippling Slight Anisocytosis (manual) Moderate Macrocytosis (manual) Moderate Ovalocytes Slight Sodium 136 (132-148) mmol/L Potassium 3.9 (3.6-5.2) mmol/L Chloride 96 L (98-107) mmol/L Carbon Dioxide 25 (22-30) mmol/L Anion Gap 19 (10-20) BUN 75 H (7-17) mg/dL Creatinine 5.1 H (0.7-1.2) mg/dL Est GFR ( Amer) 10 Est GFR (Non-Af Amer) 8 Random Glucose 120 H (65-105) mg/dL Calcium 9.1 (8.6-10.4) mg/dl Phosphorus 3.3 (2.5-4.5) mg/dL Magnesium 2.7 H (1.6-2.3) mg/dL Total Bilirubin 0.9 (0.2-1.3) mg/dL AST 59 H D (14-36) U/L ALT 28 (9-52) U/L Alkaline Phosphatase 98 (38-126) U/L Total Protein 7.1 (6.3-8.3) g/dL Albumin 3.4 L (3.5-5.0) g/dL Globulin 3.8 (2.2-3.9) gm/dL Albumin/Globulin Ratio 0.9 L (1.0-2.1) Procalcitonin (0.19-0.49) NG/ML C. difficile Ag & Toxin Negative (NEGATIVE) 06/28/17 Range/Units 12:33 WBC (4.8-10.8) K/uL RBC (3.80-5.20) Mil/uL Hgb (11.0-16.0) g/dL Hct (34.0-47.0) % MCV (81.0-99.0) fL MCH (27.0-31.0) pg MCHC (33.0-37.0) g/dL RDW (11.5-14.5) % Plt Count (130-400) K/uL MPV (7.2-11.7) fL Neut % (Auto) (50.0-75.0) % Lymph % (Auto) (20.0-40.0) % Cocke % (Auto) (0.0-10.0) % Eos % (Auto) (0.0-4.0) % Baso % (Auto) (0.0-2.0) % Neut # (1.8-7.0) K/uL Lymph # (1.0-4.3) K/uL Cocke # (0.0-0.8) K/uL Eos # (0.0-0.7) K/uL Baso # (0.0-0.2) K/uL Neutrophils % (Manual) (50-75) % Band Neutrophils % (0-2) % Lymphocytes % (Manual) (20-40) % Monocytes % (Manual) (0-10) % Eosinophils % (Manual) (0-4) % Metamyelocytes % (0-0) % Myelocytes % (0-0) % Nucleated RBC % (0-0) % Toxic Granulation Platelet Estimate (NORMAL) Polychromasia Poikilocytosis (manual Basophilic Stippling Anisocytosis (manual) Macrocytosis (manual) Ovalocytes Sodium (132-148) mmol/L Potassium (3.6-5.2) mmol/L Chloride (98-107) mmol/L Carbon Dioxide (22-30) mmol/L Anion Gap (10-20) BUN (7-17) mg/dL Creatinine (0.7-1.2) mg/dL Est GFR ( Amer) Est GFR (Non-Af Amer) Random Glucose (65-105) mg/dL Calcium (8.6-10.4) mg/dl Phosphorus (2.5-4.5) mg/dL Magnesium (1.6-2.3) mg/dL Total Bilirubin (0.2-1.3) mg/dL AST (14-36) U/L ALT (9-52) U/L Alkaline Phosphatase (38-126) U/L Total Protein (6.3-8.3) g/dL Albumin (3.5-5.0) g/dL Globulin (2.2-3.9) gm/dL Albumin/Globulin Ratio (1.0-2.1) Procalcitonin 2.71 H (0.19-0.49) NG/ML C. difficile Ag & Toxin (NEGATIVE) Laboratory Results - last 24 hr 06/28/17 06/28/17 06/29/17 12:33 15:50 06:28 WBC 25.3 H RBC 3.46 L Hgb 11.0 Hct 35.2 MCV 101.7 H MCH 31.8 H MCHC 31.3 L RDW 26.0 H Plt Count 214 MPV 8.2 Neut % (Auto) 74.1 Lymph % (Auto) 17.1 L Cocke % (Auto) 8.1 Eos % (Auto) 0.3 Baso % (Auto) 0.4 Neut # 18.7 H Lymph # 4.3 Cocke # 2.0 H Eos # 0.1 Baso # 0.1 Neutrophils % (Manual) 68 Band Neutrophils % 8 H Lymphocytes % (Manual) 13 L Monocytes % (Manual) 7 Eosinophils % (Manual) 1 Metamyelocytes % 2 H Myelocytes % 1 H Nucleated RBC % 8 H Toxic Granulation Present Platelet Estimate Normal Polychromasia Slight Poikilocytosis (manual Slight Basophilic Stippling Slight Anisocytosis (manual) Moderate Macrocytosis (manual) Moderate Ovalocytes Slight Sodium Potassium Chloride Carbon Dioxide Anion Gap BUN Creatinine Est GFR ( Amer) Est GFR (Non-Af Amer) Random Glucose Calcium Phosphorus Magnesium Total Bilirubin AST ALT Alkaline Phosphatase Total Protein Albumin Globulin Albumin/Globulin Ratio Procalcitonin 2.71 H C. difficile Ag & Toxin Negative 06/29/17 06:28 WBC RBC Hgb Hct MCV MCH MCHC RDW Plt Count MPV Neut % (Auto) Lymph % (Auto) Cocke % (Auto) Eos % (Auto) Baso % (Auto) Neut # Lymph # Cocke # Eos # Baso # Neutrophils % (Manual) Band Neutrophils % Lymphocytes % (Manual) Monocytes % (Manual) Eosinophils % (Manual) Metamyelocytes % Myelocytes % Nucleated RBC % Toxic Granulation Platelet Estimate Polychromasia Poikilocytosis (manual Basophilic Stippling Anisocytosis (manual) Macrocytosis (manual) Ovalocytes Sodium 136 Potassium 3.9 Chloride 96 L Carbon Dioxide 25 Anion Gap 19 BUN 75 H Creatinine 5.1 H Est GFR ( Amer) 10 Est GFR (Non-Af Amer) 8 Random Glucose 120 H Calcium 9.1 Phosphorus 3.3 Magnesium 2.7 H Total Bilirubin 0.9 AST 59 H D ALT 28 Alkaline Phosphatase 98 Total Protein 7.1 Albumin 3.4 L Globulin 3.8 Albumin/Globulin Ratio 0.9 L Procalcitonin C. difficile Ag & Toxin Review of Systems - Review of Systems Review of Systems: Unable to evaluate adequate ROS as patient does not speak nor utilize head motion to answer questions. Critical Care Progress Note - Ventilator Checklist Head of Bed 30 Degrees: No Daily Sedation Vacation: No Daily Assessment of Readiness to Wean: No Daily Spontaneous Breathing Trial: No PUD Prophalyxis: Yes DVT Prophylaxis: Yes Assessment/Plan - Assessment and Plan (Free Text) Assessment: Patient is a 76 year old female with PMH of COPD, Asthma, HTN, Cardiomegaly, Dementia who has had an extensive complicated hospital course. Patient was transfer to the ICU due to hypotension and lethargic s/p HD (06/22/17). Today: Plan: Continue current management and palliative consult Plan: )Neuro: Non-verbal and does not follow commands but responds to touch stimuli Cardio: Hypotension s/p HD (06/22/17), Hx of A.fibrillation, Hx of CHF, Medication/Management: * Lopressor 12.5mg PO daily (Held due to hypotension) * Midodrine 5mg PO TID * Heparin 5,000 units Q12H Pulm: Hx of respiratory distress. * Currently, on 3L NC Renal: End stage renal disease Medication/Management: * HD on , W, * Procrit 10,000 unit with HD * Phoslo 667mg PO TIDCC Heme: Anemia secondary to ESRD Medication/Management: * Feosol 325mg PO daily ID: Leukocytosis, mild bandemia) * Blood Culture (No Growth- 06/22/17) * Lactate: 1.8. Procalcitonin: 4.16 (06/24/17) * F/u repeat urine culture (Unable to repeat urine culture as patient is oliguria) Medication: * Cefepime 1gm IVPB 24H (Started 06/24/17) * Vanco 1gm IVPB ,, F (Started 06/26/17) * Flagyl 500mg IVBP Q8H ( Started 06/28/17) Prophylaxis: Cardio: Aspirin 81mg PO daily DVT: Heparin SC 5000 Q12H GI: Protonix 40 ng PO daily Zofran 4mg IVP Q6H prn NGT placement for nephro tube feeding PT and OT Palliative consult
--- NOTE | 2017-06-29 11:15 | CP.PCM.PN ---
Subjective - Date & Time of Evaluation Date of Evaluation: 06/29/17 Time of Evaluation: 11:11 - Subjective Subjective: On dialysis now- to UF 500ml as BP low Palliative care being considered Now unresponsive Leukocytosis noted- on IV ABs Objective - Vital Signs/Intake and Output Vital Signs (last 24 hours): Temp Pulse Resp BP Pulse Ox 98.5 F 104 H 25 H 87/48 L 97 06/29/17 09:20 06/29/17 09:20 06/29/17 09:20 06/29/17 10:50 06/29/17 09:20 Intake and Output: 06/29/17 06/29/17 06:59 18:59 Intake Total 850 100 Balance 850 100 - Medications Medications: Current Medications Aspirin (Aspirin Chewable) 81 mg PO DAILY [facility] Last Admin: 06/29/17 09:55 Dose: 81 mg Calcium Acetate (Phoslo) 667 mg PO TIDCC [facility] Last Admin: 06/29/17 09:56 Dose: 667 mg Ferrous Sulfate (Feosol Liq) 300 mg NG DAILY [facility] Last Admin: 06/29/17 09:55 Dose: 300 mg Cefepime HCl (Maxipime Iv 1 Gm Premix) 1 gm in 50 mls @ 100 mls/hr IVPB Q24H [facility] Last Admin: 06/28/17 14:30 Dose: 100 mls/hr Vancomycin HCl 1 gm/ Sodium (Chloride) 250 mls @ 166.7 mls/hr IVPB MWF [facility] Last Admin: 06/29/17 09:58 Dose: 166.7 mls/hr Metronidazole (Flagyl) 500 mg in 100 mls @ 100 mls/hr IVPB Q8 [facility] Last Admin: 06/29/17 05:29 Dose: 100 mls/hr Metoprolol Succinate (Toprol Xl) 12.5 mg PO DAILY [facility] Midodrine (Proamatine) 10 mg PO TID [facility] Last Admin: 06/29/17 09:55 Dose: 10 mg Pantoprazole Sodium (Protonix Susp) 40 mg NG DAILY [facility] Last Admin: 06/29/17 09:55 Dose: 40 mg - Labs Labs: 06/29/17 06:28 06/29/17 06:28 PT 14.3 SECONDS (9.7-12.2) H 06/09/17 06:24 INR 1.3 06/09/17 06:24 APTT 27 SECONDS (21-34) 06/09/17 06:24 - Constitutional Appears: In Acute Distress, Chronically Ill - Head Exam Head Exam: ATRAUMATIC, NORMAL INSPECTION - Eye Exam Eye Exam: EOMI, Normal appearance - Neck Exam Neck Exam: Normal Inspection. absent: Tenderness - Respiratory Exam Respiratory Exam: Clear to Ausculation Bilateral, NORMAL BREATHING PATTERN - Cardiovascular Exam Cardiovascular Exam: REGULAR RHYTHM, +S1 - GI/Abdominal Exam GI & Abdominal Exam: Tenderness. absent: Soft - Extremities Exam Extremities Exam: Normal Inspection. absent: Tenderness - Neurological Exam Neurological Exam: Altered, Motor Sensory Deficit - Skin Skin Exam: Dry, Warm Assessment and Plan (1) Acute respiratory failure Status: Acute (2) Chronic a-fib Status: Acute (3) Dementia Status: Acute (4) CEZAR (acute kidney injury) Status: Acute (5) Acute respiratory failure with hypoxia and hypercapnia Status: Acute (6) History of hypertension Status: Acute (7) ESRD (end stage renal disease) Status: Acute - Assessment and Plan (Free Text) Plan: Minimal UF with dialysis Continue IV ABs Considering palliative care Continue midodrine for BP support Dialysis MWF for now
--- NOTE | 2017-06-29 11:37 | CP.PCM.PN ---
<Gena Matthew - Last Filed: 06/29/17 15:31> Subjective - Date & Time of Evaluation Date of Evaluation: 06/29/17 Time of Evaluation: 11:37 - Subjective Subjective: Cardiology Progress Note- Dr. Hart's service Patient seen and evaluated bedside. Patient sleeping and not easily roused with stimulation. Patient currently having HD. An ROS could not be obtained at this time due to clinical status. Objective - Vital Signs/Intake and Output Vital Signs (last 24 hours): Temp Pulse Resp BP Pulse Ox 98.5 F 104 H 25 H 87/48 L 97 06/29/17 09:20 06/29/17 09:20 06/29/17 09:20 06/29/17 10:50 06/29/17 09:20 Intake and Output: 06/29/17 06/29/17 06:59 18:59 Intake Total 850 100 Balance 850 100 - Medications Medications: Current Medications Aspirin (Aspirin Chewable) 81 mg PO DAILY [facility] Last Admin: 06/29/17 09:55 Dose: 81 mg Calcium Acetate (Phoslo) 667 mg PO TIDCC [facility] Last Admin: 06/29/17 09:56 Dose: 667 mg Ferrous Sulfate (Feosol Liq) 300 mg NG DAILY [facility] Last Admin: 06/29/17 09:55 Dose: 300 mg Cefepime HCl (Maxipime Iv 1 Gm Premix) 1 gm in 50 mls @ 100 mls/hr IVPB Q24H [facility] Last Admin: 06/28/17 14:30 Dose: 100 mls/hr Vancomycin HCl 1 gm/ Sodium (Chloride) 250 mls @ 166.7 mls/hr IVPB MWF [facility] Last Admin: 06/29/17 09:58 Dose: 166.7 mls/hr Metronidazole (Flagyl) 500 mg in 100 mls @ 100 mls/hr IVPB Q8 [facility] Last Admin: 06/29/17 05:29 Dose: 100 mls/hr Metoprolol Succinate (Toprol Xl) 12.5 mg PO DAILY [facility] Midodrine (Proamatine) 10 mg PO TID [facility] Last Admin: 06/29/17 09:55 Dose: 10 mg Pantoprazole Sodium (Protonix Susp) 40 mg NG DAILY [facility] Last Admin: 06/29/17 09:55 Dose: 40 mg - Labs Labs: 06/29/17 06:28 06/29/17 06:28 PT 14.3 SECONDS (9.7-12.2) H 06/09/17 06:24 INR 1.3 06/09/17 06:24 APTT 27 SECONDS (21-34) 06/09/17 06:24 - Constitutional Appears: Non-toxic, No Acute Distress - Head Exam Head Exam: ATRAUMATIC - ENT Exam ENT Exam: Mucous Membranes Moist - Respiratory Exam Respiratory Exam: NORMAL BREATHING PATTERN - Cardiovascular Exam Cardiovascular Exam: +S1, +S2 - GI/Abdominal Exam GI & Abdominal Exam: Soft - Extremities Exam Extremities Exam: Normal Capillary Refill, Pedal Edema (trace) - Neurological Exam Neurological Exam: Altered - Psychiatric Exam Psychiatric exam: Flat Affect - Skin Skin Exam: Dry, Intact, Warm Assessment and Plan (1) Atrial fibrillation, new onset Status: Acute (2) CHF (congestive heart failure) Status: Chronic (3) Elevated troponin Status: Acute (4) Prophylactic measure Status: Acute - Assessment and Plan (Free Text) Assessment: Atrial fibrillation Assessment & Plan: Patient is currently off Diltiazem due to hypotension. CHADs Score of 5- Patient off Lovenox due to anemia and ecchymosis. Will need to determine anticoagulation measures. Patient developed significant ecchymosis the last time that she was on an agent and thus it had to be discontinued. Right now, weighing risks vs benefits. At this time, on DVT prophylaxis solely. ASA On Feosol for Anemia Status: Acute Leukocytosis Assessment & Plan: Would recommend repeat cultures Spiked a fever yesterday which improved. Cont to monitor Currently on Maxipime, Vancomycin and Flagyl ID on the case Hypotension Assessment & Plan: Stable Avoid excess fluids due to CHF Recommendations for decreased HD removal goal due to hypotension Continue to monitor Status: Acute CHF (congestive heart failure) Assessment & Plan: CXR 06/23 : stable cardiomegaly, improved history volume EF 57.8% Cont to monitor on Lasix PRN Status: Acute ESRD on HD MWF Assessment & Plan: Patient to have HD today Recommendations for decreased goal due to hypotension Status: Chronic Hx of Anemia Assessment & Plan: Stable On Feosol for Anemia Status: Acute Prophylactic measure Assessment & Plan: Heparin SC 5000 Q12 Protonix 40 mg PO daily Status: Acute Would benefit from another visit from Palliative services due to clinical presentation. Discussed with Dr. Hart. All management and planning per Dr. Hart. <Ish Hart - Last Filed: 06/30/17 21:03> Objective - Vital Signs/Intake and Output Vital Signs (last 24 hours): Temp Pulse Resp BP Pulse Ox 99.8 F H 113 H 20 69/41 L 77 L 06/30/17 16:18 06/30/17 16:18 06/30/17 16:18 06/30/17 17:00 06/30/17 17:00 Intake and Output: 06/30/17 07/01/17 18:59 06:59 Intake Total 50 Balance 50 - Labs Labs: 06/29/17 06:28 06/29/17 06:28 PT 14.3 SECONDS (9.7-12.2) H 06/09/17 06:24 INR 1.3 06/09/17 06:24 APTT 27 SECONDS (21-34) 06/09/17 06:24 Assessment and Plan - Assessment and Plan (Free Text) Assessment: Patient seen and evaluated with the biomedical electronics technician Plan of care as documented
--- NOTE | 2017-06-29 11:51 | CP.PCM.PN ---
Objective - Vital Signs/Intake and Output Vital Signs (last 24 hours): Temp Pulse Resp BP Pulse Ox 98.5 F 104 H 25 H 87/48 L 97 06/29/17 09:20 06/29/17 09:20 06/29/17 09:20 06/29/17 10:50 06/29/17 09:20 Intake and Output: 06/29/17 06/29/17 06:59 18:59 Intake Total 850 100 Balance 850 100 - Medications Medications: Current Medications Aspirin (Aspirin Chewable) 81 mg PO DAILY [facility] Last Admin: 06/29/17 09:55 Dose: 81 mg Calcium Acetate (Phoslo) 667 mg PO TIDCC [facility] Last Admin: 06/29/17 09:56 Dose: 667 mg Ferrous Sulfate (Feosol Liq) 300 mg NG DAILY [facility] Last Admin: 06/29/17 09:55 Dose: 300 mg Heparin Sodium (Porcine) (Heparin) 5,000 units SC Q12 [facility] Cefepime HCl (Maxipime Iv 1 Gm Premix) 1 gm in 50 mls @ 100 mls/hr IVPB Q24H [facility] Last Admin: 06/28/17 14:30 Dose: 100 mls/hr Vancomycin HCl 1 gm/ Sodium (Chloride) 250 mls @ 166.7 mls/hr IVPB MWF [facility] Last Admin: 06/29/17 09:58 Dose: 166.7 mls/hr Metronidazole (Flagyl) 500 mg in 100 mls @ 100 mls/hr IVPB Q8 [facility] Last Admin: 06/29/17 05:29 Dose: 100 mls/hr Metoprolol Succinate (Toprol Xl) 12.5 mg PO DAILY [facility] Midodrine (Proamatine) 10 mg PO TID [facility] Last Admin: 06/29/17 09:55 Dose: 10 mg Pantoprazole Sodium (Protonix Susp) 40 mg NG DAILY [facility] Last Admin: 06/29/17 09:55 Dose: 40 mg - Labs Labs: 06/29/17 06:28 06/29/17 06:28 PT 14.3 SECONDS (9.7-12.2) H 06/09/17 06:24 INR 1.3 06/09/17 06:24 APTT 27 SECONDS (21-34) 06/09/17 06:24 Assessment and Plan (1) Acute respiratory failure with hypoxia and hypercapnia Status: Acute (2) Atrial fibrillation, new onset Status: Acute (3) COPD exacerbation Status: Acute
--- NOTE | 2017-06-29 12:22 | CP.PCM.PN ---
Subjective - Date & Time of Evaluation Date of Evaluation: 06/29/17 Time of Evaluation: 07:00 - Subjective Subjective: lethargic on HD NAD Objective - Vital Signs/Intake and Output Vital Signs (last 24 hours): Temp Pulse Resp BP Pulse Ox 98.5 F 106 H 27 H 85/47 L 97 06/29/17 09:20 06/29/17 11:40 06/29/17 11:40 06/29/17 11:50 06/29/17 11:40 Intake and Output: 06/29/17 06/29/17 06:59 18:59 Intake Total 850 300 Balance 850 300 - Medications Medications: Current Medications Aspirin (Aspirin Chewable) 81 mg PO DAILY [facility] Last Admin: 06/29/17 09:55 Dose: 81 mg Calcium Acetate (Phoslo) 667 mg PO TIDCC [facility] Last Admin: 06/29/17 09:56 Dose: 667 mg Ferrous Sulfate (Feosol Liq) 300 mg NG DAILY [facility] Last Admin: 06/29/17 09:55 Dose: 300 mg Heparin Sodium (Porcine) (Heparin) 5,000 units SC Q12 [facility] Last Admin: 06/29/17 11:58 Dose: 5,000 units Cefepime HCl (Maxipime Iv 1 Gm Premix) 1 gm in 50 mls @ 100 mls/hr IVPB Q24H [facility] Last Admin: 06/28/17 14:30 Dose: 100 mls/hr Vancomycin HCl 1 gm/ Sodium (Chloride) 250 mls @ 166.7 mls/hr IVPB MWF [facility] Last Admin: 06/29/17 09:58 Dose: 166.7 mls/hr Metronidazole (Flagyl) 500 mg in 100 mls @ 100 mls/hr IVPB Q8 [facility] Last Admin: 06/29/17 05:29 Dose: 100 mls/hr Metoprolol Succinate (Toprol Xl) 12.5 mg PO DAILY [facility] Midodrine (Proamatine) 10 mg PO TID [facility] Last Admin: 06/29/17 09:55 Dose: 10 mg Pantoprazole Sodium (Protonix Susp) 40 mg NG DAILY [facility] Last Admin: 06/29/17 09:55 Dose: 40 mg - Labs Labs: 06/29/17 06:28 06/29/17 06:28 PT 14.3 SECONDS (9.7-12.2) H 06/09/17 06:24 INR 1.3 06/09/17 06:24 APTT 27 SECONDS (21-34) 06/09/17 06:24 - Constitutional Appears: Confused, Chronically Ill - Head Exam Head Exam: NORMOCEPHALIC - Eye Exam Eye Exam: PERRL - ENT Exam ENT Exam: Mucous Membranes Dry - Neck Exam Neck Exam: absent: Lymphadenopathy - Respiratory Exam Respiratory Exam: Decreased Breath Sounds - Cardiovascular Exam Cardiovascular Exam: REGULAR RHYTHM - GI/Abdominal Exam GI & Abdominal Exam: Distended, Soft - Rectal Exam Rectal Exam: Deferred - Exam Exam: NORMAL INSPECTION - Extremities Exam Extremities Exam: absent: Pedal Edema - Back Exam Back Exam: absent: CVA tenderness (L), CVA tenderness (R) Assessment and Plan (1) Acute respiratory failure with hypoxia and hypercapnia Status: Acute (2) Atrial fibrillation, new onset Status: Acute (3) COPD exacerbation Status: Acute (4) Dementia Status: Acute (5) ESRD (end stage renal disease) Status: Acute - Assessment and Plan (Free Text) Assessment: reculttured for elevated wbc d/c cefepime add merrem
[2017-06-29 13:05] LABS: ABG ALLEN TEST POS; ARTERIAL BLOOD HGB O2 SAT 95.6 % (95.0-98.0); CARBOXYHEMOGLOBIN 2.8 % (0.5-1.5); DRAW SITE LR; HHB 0.2 % (0.0-5.0); METHEMOGLOBIN 1.4 % (0.0-3.0)
[2017-06-29] MEDS: Meropenem 500 MG in Sodium Chloride 0.9% 100 ML IVPB SCH ×2 (14:00→17:44)
--- NOTE | 2017-06-29 15:42 | CP.PCM.CON ---
History of Present Illness - History of Present Illness History of Present Illness: Palliative consult Requested by Jody England Reason; Goals of care Patient is a 76 yo admitted from home with SOB. Patient was at day care when her symptoms occurred and 911 was called. As per family, she had those symptoms for about 3 days. patient was using O2 at home. Despite all prudent care patient 's condition has declined. Patient is now non verbal and is not fallowing commends. Condition is seen as terminal. PMH: COPD, HTN, asthma, dementia, on HD Soc, hx: lives alone, was attending day care Fam . Hx: father from heart disease Review of Systems - Review of Systems All systems: reviewed and no additional remarkable complaints except Review of Systems: ROS obtained from [facility]. patient is lethatgic. No acute over night event. Past Patient History - Past Medical History & Family History Past Medical History?: Yes Past Family History: Reviewed and not pertinent - Past Social History Smoking Status: Never Smoked Chewing Tobacco Use: No Cigar Use: No Alcohol: None Home Situation {Lives}: Prison - CARDIAC Hx Hypertension: Yes - PULMONARY Hx Chronic Obstructive Pulmonary Disease (COPD): Yes - NEUROLOGICAL Hx Dementia: Yes - RENAL Hx Chronic Kidney Disease: No - ENDOCRINE/METABOLIC Hx Endocrine Disorders: No - HEMATOLOGICAL/ONCOLOGICAL Hx Blood Disorders: No - INTEGUMENTARY Hx Dermatological Problems: No - MUSCULOSKELETAL/RHEUMATOLOGICAL Hx Degenerative Joint Disease: Yes Hx Osteoarthritis: Yes - GASTROINTESTINAL Hx Gastrointestinal Disorders: No - GENITOURINARY/GYNECOLOGICAL Hx Genitourinary Disorders: No - PSYCHIATRIC Hx Substance Use: No - SURGICAL HISTORY Hx Surgeries: Yes Hx Cataract Extraction: Yes Hx Herniorrhaphy: Yes (Umbilical) - ANESTHESIA Hx Anesthesia: Yes Hx Anesthesia Reactions: No Meds Allergies/Adverse Reactions: Allergies Allergy/AdvReac Type Severity Reaction Status Date / Time No Known Allergies Allergy Unverified 05/22/17 09:31 - Medications Medications: Current Medications Aspirin (Aspirin Chewable) 81 mg PO DAILY [facility] Last Admin: 06/29/17 09:55 Dose: 81 mg Calcium Acetate (Phoslo) 667 mg PO TIDCC [facility] Last Admin: 06/29/17 09:56 Dose: 667 mg Ferrous Sulfate (Feosol Liq) 300 mg NG DAILY [facility] Last Admin: 06/29/17 09:55 Dose: 300 mg Heparin Sodium (Porcine) (Heparin) 5,000 units SC Q12 [facility] Last Admin: 06/29/17 11:58 Dose: 5,000 units Vancomycin HCl 1 gm/ Sodium (Chloride) 250 mls @ 166.7 mls/hr IVPB MWF [facility] Last Admin: 06/29/17 09:58 Dose: 166.7 mls/hr Metronidazole (Flagyl) 500 mg in 100 mls @ 100 mls/hr IVPB Q8 [facility] Last Admin: 06/29/17 05:29 Dose: 100 mls/hr Meropenem 500 mg/ Sodium (Chloride) 100 mls @ 200 mls/hr IVPB Q12H [facility] Metoprolol Succinate (Toprol Xl) 12.5 mg PO DAILY [facility] Midodrine (Proamatine) 10 mg PO TID [facility] Last Admin: 06/29/17 09:55 Dose: 10 mg Pantoprazole Sodium (Protonix Susp) 40 mg NG DAILY [facility] Last Admin: 06/29/17 09:55 Dose: 40 mg Physical Exam - Constitutional Appears: In Acute Distress, Chronically Ill - Head Exam Head Exam: ATRAUMATIC, NORMAL INSPECTION, NORMOCEPHALIC - Eye Exam Eye Exam: EOMI, Normal appearance, PERRL Pupil Exam: NORMAL ACCOMODATION, PERRL - ENT Exam Additional comments: NGT - Neck Exam Neck exam: Positive for: Normal Inspection - Respiratory Exam Respiratory Exam: Decreased Breath Sounds - Cardiovascular Exam Cardiovascular Exam: Tachycardia, REGULAR RHYTHM - GI/Abdominal Exam GI & Abdominal Exam: Hypoactive Bowel Sounds, Soft - Rectal Exam Rectal Exam: Deferred - Extremities Exam Extremities exam: Positive for: pedal edema - Back Exam Back exam: NORMAL INSPECTION - Neurological Exam Neurological exam: Alert, Altered - Psychiatric Exam Psychiatric exam: Flat Affect - Skin Skin Exam: Dry, Intact, Normal Color, Warm Results - Vital Signs Recent Vital Signs: Last Vital Signs Temp 98.6 F 06/29/17 12:20 Pulse 108 H 06/29/17 12:20 Resp 29 H 06/29/17 12:20 BP 81/48 L 06/29/17 12:20 Pulse Ox 98 06/29/17 12:20 - Labs Result Diagrams: 06/29/17 06:28 06/29/17 06:28 Labs: Laboratory Results - last 24 hr 06/28/17 06/29/17 06/29/17 15:50 06:28 06:28 WBC 25.3 H RBC 3.46 L Hgb 11.0 Hct 35.2 MCV 101.7 H MCH 31.8 H MCHC 31.3 L RDW 26.0 H Plt Count 214 MPV 8.2 Neut % (Auto) 74.1 Lymph % (Auto) 17.1 L [place] % (Auto) 8.1 Eos % (Auto) 0.3 Baso % (Auto) 0.4 Neut # 18.7 H Lymph # 4.3 [place] # 2.0 H Eos # 0.1 Baso # 0.1 Neutrophils % (Manual) 68 Band Neutrophils % 8 H Lymphocytes % (Manual) 13 L Monocytes % (Manual) 7 Eosinophils % (Manual) 1 Metamyelocytes % 2 H Myelocytes % 1 H Nucleated RBC % 8 H Toxic Granulation Present Platelet Estimate Normal Polychromasia Slight Poikilocytosis (manual Slight Basophilic Stippling Slight Anisocytosis (manual) Moderate Macrocytosis (manual) Moderate Ovalocytes Slight Puncture Site pCO2 pO2 HCO3 ABG pH ABG Total CO2 ABG O2 Saturation ABG Base Excess ABG Hemoglobin ABG Carboxyhemoglobin POC ABG HHb (Measured) ABG Methemoglobin Sj Test A-a O2 Difference Respiratory Index Hgb O2 Saturation Liter Flow FiO2 Sodium 136 Potassium 3.9 Chloride 96 L Carbon Dioxide 25 Anion Gap 19 BUN 75 H Creatinine 5.1 H Est GFR ( Amer) 10 Est GFR (Non-Af Amer) 8 Random Glucose 120 H Calcium 9.1 Phosphorus 3.3 Magnesium 2.7 H Total Bilirubin 0.9 AST 59 H D ALT 28 Alkaline Phosphatase 98 Total Protein 7.1 Albumin 3.4 L Globulin 3.8 Albumin/Globulin Ratio 0.9 L C. difficile Ag & Toxin Negative 06/29/17 13:01 WBC RBC Hgb Hct MCV MCH MCHC RDW Plt Count MPV Neut % (Auto) Lymph % (Auto) [place] % (Auto) Eos % (Auto) Baso % (Auto) Neut # Lymph # [place] # Eos # Baso # Neutrophils % (Manual) Band Neutrophils % Lymphocytes % (Manual) Monocytes % (Manual) Eosinophils % (Manual) Metamyelocytes % Myelocytes % Nucleated RBC % Toxic Granulation Platelet Estimate Polychromasia Poikilocytosis (manual Basophilic Stippling Anisocytosis (manual) Macrocytosis (manual) Ovalocytes Puncture Site Lr pCO2 67 H pO2 140 H HCO3 27.5 ABG pH 7.28 L ABG Total CO2 33.6 H ABG O2 Saturation 99.8 H ABG Base Excess 3.3 H ABG Hemoglobin 11.0 L ABG Carboxyhemoglobin 2.8 H POC ABG HHb (Measured) 0.2 ABG Methemoglobin 1.4 Sj Test Pos A-a O2 Difference -10.0 Respiratory Index -0.1 Hgb O2 Saturation 95.6 Liter Flow 3.0 FiO2 30.0 Sodium Potassium Chloride Carbon Dioxide Anion Gap BUN Creatinine Est GFR ( Amer) Est GFR (Non-Af Amer) Random Glucose Calcium Phosphorus Magnesium Total Bilirubin AST ALT Alkaline Phosphatase Total Protein Albumin Globulin Albumin/Globulin Ratio C. difficile Ag & Toxin Assessment & Plan - Assessment and Plan (Free Text) Assessment: Palliative consult No Advance Directive on chart, ROS obtained from nursing, PPS 0% I reviewed medical records, all diagnostic studies, examined patient in the bed and discussed goals of care with ras Rangel. Patient is lethargyc, does not respond to stimuli and is non verbal, very drowsy. Per nursing, patient has been in this condition for the last 2 - 3 days. Patient become increasingly hypotensive after HD and was placed on Midodrine. WBC nadya to 25.3 from 14.0 despite Maxipime, Vanco and Flagyl. The sputum positive for yeast infection. Breath sounds diminished, O2 via NC. NGT inpace for nutrition and meds. Abdomen soft and with distant bowel sounds. BP 84 /49, HR 108, afebrile. Goals of care discussed with ras Rangel. he stated that his mother had a nice life and she would not want to live under this condition. Juan Carlos understands that long lasting chronic disease has progress to the point that his mother's quality of life is severely destroyed. I supported his opinion. Juan Carlos would want just comfort measures for his mother. If her condition worsens Juan Carlos would want her to be allowed natural . RON signed. he choose DNR/DNI. I further offered more information about Hospice care vs LTAC. Juan Carlos is open for any option based on what the ICU team feels is the best option for the patient. I shared this with Doctor Jody. Impression * This is a very ill patient most likely due to sepsis, with long standing chronic diseases * Patient 's condition has deterioritated during this hospital stay, despite all prudent and reasonable care * The son is advocating for comfort care only. * POLST on the chart * Suggestion * Agree with DNR/DNI * I will fallow up with the family and primary MD regarding the discharge plan * Family is open for either LTAC or Hospice * Since patient is lethargic and unable to swallow, and family does not want PEG , I would stop HD and order Hospice evaluation
--- NOTE | 2017-06-29 16:08 | RAD ---
HISTORY: s/p DIALYSIS, chest X-ray can be done now COMPARISON: 06/23/2017 FINDINGS: The left PermCath terminates in the right atrium. The nasogastric tube terminates in the stomach. LUNGS: There are persistent low lung volumes. There is multifocal atelectasis in the left lower lobe. No focal consolidation. PLEURA: No large pleural effusions, no pneumothorax apparent. CARDIOVASCULAR: This persistent mild mild cardiomegaly. OSSEOUS STRUCTURES: No significant abnormalities. VISUALIZED UPPER ABDOMEN: Normal. OTHER FINDINGS: None. IMPRESSION: No active pulmonary disease. Multifocal atelectasis in the left lower lobe.
[2017-06-30] MEDS: Meropenem 500 MG in Sodium Chloride 0.9% 100 ML IVPB SCH ×2 (00:31→14:42)
[2017-06-30] MEDS: metroNIDAZOLE IV 500 mg/100 ml 500 MG/100 ML BAG IVPB SCH ×2 (05:33→15:00)
--- NOTE | 2017-06-30 08:52 | CP.PCM.PN ---
Subjective - Date & Time of Evaluation Date of Evaluation: 06/30/17 Time of Evaluation: 08:30 - Subjective Subjective: Patient's code status was now changed by family to be DNR and DNI. Appreciate palliative care speaking with family. Today patient remained non verbal as well as non responsive to stimuli. She was not moving any of her extremities when I saw her. On the river driver HR was 110s, it appeared she was back in atrial fibrillation again on the monitor as well as with auscultation on exam From what I understand there is pending hospice evaluation at this moment. Objective - Vital Signs/Intake and Output Vital Signs (last 24 hours): Temp Pulse Resp BP Pulse Ox 99 F 113 H 29 H 95/50 L 93 L 06/30/17 08:00 06/30/17 08:28 06/30/17 08:28 06/30/17 08:28 06/30/17 08:28 Intake and Output: 06/30/17 06/30/17 06:59 18:59 Intake Total 350 0 Balance 350 0 - Medications Medications: Current Medications Aspirin (Aspirin Chewable) 81 mg PO DAILY [facility] Last Admin: 06/29/17 09:55 Dose: 81 mg Calcium Acetate (Phoslo) 667 mg PO TIDCC [facility] Last Admin: 06/29/17 17:43 Dose: Not Given Ferrous Sulfate (Feosol Liq) 300 mg NG DAILY [facility] Last Admin: 06/29/17 09:55 Dose: 300 mg Heparin Sodium (Porcine) (Heparin) 5,000 units SC Q12 [facility] Last Admin: 06/29/17 21:19 Dose: 5,000 units Vancomycin HCl 1 gm/ Sodium (Chloride) 250 mls @ 166.7 mls/hr IVPB MWF [facility] Last Admin: 06/29/17 09:58 Dose: 166.7 mls/hr Metronidazole (Flagyl) 500 mg in 100 mls @ 100 mls/hr IVPB Q8 [facility] Last Admin: 06/30/17 05:33 Dose: 100 mls/hr Meropenem 500 mg/ Sodium (Chloride) 100 mls @ 200 mls/hr IVPB Q12H [facility] Last Admin: 06/30/17 00:31 Dose: 200 mls/hr Metoprolol Succinate (Toprol Xl) 12.5 mg PO DAILY [facility] Midodrine (Proamatine) 10 mg PO TID [facility] Last Admin: 06/29/17 18:04 Dose: 10 mg Pantoprazole Sodium (Protonix Susp) 40 mg NG DAILY [facility] Last Admin: 06/29/17 09:55 Dose: 40 mg - Labs Labs: 06/29/17 06:28 06/29/17 06:28 PT 14.3 SECONDS (9.7-12.2) H 06/09/17 06:24 INR 1.3 06/09/17 06:24 APTT 27 SECONDS (21-34) 06/09/17 06:24 - Constitutional Appears: Unkempt, Chronically Ill - Eye Exam Eye Exam: absent: EOMI, Normal appearance - ENT Exam ENT Exam: Mucous Membranes Moist - Respiratory Exam Respiratory Exam: Decreased Breath Sounds - Cardiovascular Exam Cardiovascular Exam: Irregular Rhythm - GI/Abdominal Exam GI & Abdominal Exam: Distended, Soft. absent: Firm, Guarding, Rigid, Tenderness - Neurological Exam Neurological Exam: Altered. absent: Alert, Awake, CN II-XII Intact, Normal Gait , Oriented x3 Neuro motor strength exam: Left Upper Extremity: 0, Right Upper Extremity: 0, Left Lower Extremity: 0, Right Lower Extremity: 0 - Psychiatric Exam Psychiatric exam: Depressed, Flat Affect - Skin Skin Exam: Pallor, Warm Assessment and Plan - Assessment and Plan (Free Text) Assessment: Patient is now DNR and DNI, pending hospice evaluation Hypotention: 06/30: This morning systolic BPs range in the 80s to 90s 06/29: Currently sytolic BPs range in the 80s to 90s range. She was moved back to the ICU after her BP became low following HD. She is on Midodrine at this time TID On IV abx, there is a high WBC. Cultures have been negative so far. ESRD 06/29: Pending HD again today Nephrology Consult, Dr. Anderson Patient developed acute renal failure Patient is currently on hemodialysis - MWF * Dr. Tristan consulted for Perma Cath placement;placed; patient received dialysis on 06/13 Renal US 06/11/17 - limited study due to patient's body habitus. No calculus or hydronephrosis identified b/l. Probable right renal cortical cyst measures approximately 0.7 x 0.4 x 0.8 cm AVF on 06/15/17 - bruit is present in right arm. Currently on HD MWF S/P LEFT PERMACATH on 06/18/17 - dialysis today Atrial fibrillation, new onset 06/30: This morning on telemetry appears to be back in atrial fibrillation. HR 100s to 110s 06/29: Currently NSR on telemetry HR 100s. Not on anticogulation due to previous heavy bleeding. Rate controlled - Diltiazem 30mg PO Q6H Not on anticoagulation because of anemia and ecchymosis patient will need cardiology f/u on discharge On Ferrous Sulfate 325mg PO daily for Anemia CHF (congestive heart failure); diastolic dysfunction with preserved EF 06/29 Currently requiring HD CXR 06/09 : stable cardiomegaly, small bilateral pleural effusions noted EF 57.8% Cont to monitor on Lasix PRN Sacral Decubitus Ulcer - stage 2 Located on the right upper buttocks Started on Aloe [place] lotion TID Turn pt every 2 hours Pneumonia 06/29: WBC 25, there is an elevated procalcitonin as well as some bands. Acute respiratory failure with hypoxia and hypercapnia; resolved Repeated episodes of hypercapnic respiratory distress. Patient was recently intubated and extubated twice. Now patient is monitored on oxygen by nasal cannula. Prophylactic measure Heparin SC 5000 Q12 Protonix 40 mg PO daily
[2017-06-30] MEDS: Ferrous Sulfate 300 mg/5 mL Liq UD NG SCH (09:50)
[2017-06-30] MEDS: Pantoprazole 40 mg Susp UD NG SCH (09:51)
--- NOTE | 2017-06-30 11:00 | CP.CCUPN ---
CCU Subjective - Physician Review Subjective (Free Text): Patient was seen and examined at bedside. Patient is non-verbal and does not follow command, but responds to touch stimuli. Unable to evaluate adequate ROS as patient does not speak nor utilize head motion to answer questions. CCU Objective - Vital Signs / Intake & Output Vital Signs (Last 4 hours): Vital Signs Temp Pulse Resp BP Pulse Ox 06/30/17 08:28 113 H 29 H 95/50 L 93 L 06/30/17 08:00 99 F 106 H 28 H 96 06/30/17 07:28 118 H 31 H 92/51 L 96 06/30/17 07:27 106 H 30 H 96 06/30/17 07:00 111 H 31 H 95 Intake and Output (Last 8hrs): Intake & Output 06/29/17 06/30/17 06/30/17 22:59 06:59 14:59 Intake Total 650 100 0 Balance 650 100 0 Weight 246 lb Intake: Intake, IV Amount 350 Left Upper arm 350 Tube Feeding 300 100 0 Other: # Bowel Movements 1 1 - Physical Exam Head: Positive for: Atraumatic, Normocephalic Extroacular Muscles: Positive for: EOMI Respiratory/Chest: Positive for: Good Air Exchange, Rales, Other (Patient is on 3L NC ). Negative for: Respiratory Distress, Accessory Muscle Use Cardiovascular: Positive for: Regular Rate and Rhythm, Normal S1, S2 Abdomen: Positive for: Normal Bowel Sounds. Negative for: Tenderness, Peritoneal Signs Upper Extremity: Positive for: Other (Moderate Ecchymosis noted bilaterally ). Negative for: Normal Inspection, Edema Lower Extremity: Positive for: Swelling. Negative for: Edema, Tenderness Neurological: Positive for: Other (Non-verbal and does not follow command ). Negative for: Speech Normal Skin: Positive for: Normal Color. Negative for: Diaphoretic Psychiatric: Positive for: Lethargic. Negative for: Alert, Oriented x 3 - Medications Active Medications: Active Medications Generic Name Dose Route Start Last Admin Trade Name Freq PRN Reason Stop Dose Admin Aspirin 81 mg 06/24/17 15:30 06/30/17 09:50 Aspirin Chewable PO 81 mg DAILY [facility] Administration Calcium Acetate 667 mg 06/01/17 17:00 06/30/17 08:55 Phoslo PO Not Given TIDCC [facility] Ferrous Sulfate 300 mg 06/25/17 10:00 06/30/17 09:50 Feosol Liq NG 300 mg DAILY [facility] Administration Heparin Sodium (Porcine) 5,000 units 06/29/17 11:45 06/30/17 09:50 Heparin SC 5,000 units Q12 [facility] Administration Vancomycin HCl 1 gm/ Sodium 250 mls @ 166.7 mls/hr 06/26/17 09:00 06/29/17 09 :58 Chloride IVPB 166.7 mls/hr MWF [facility] Administration Metronidazole 500 mg in 100 mls @ 100 mls/hr 06/28/17 22:00 06/30/17 05:33 Flagyl IVPB 100 mls/hr Q8 [facility] Administration Meropenem 500 mg/ Sodium 100 mls @ 200 mls/hr 06/29/17 13:00 06/30/17 00:31 Chloride IVPB 200 mls/hr Q12H [facility] Administration Metoprolol Succinate 12.5 mg 06/25/17 09:29 Toprol Xl PO DAILY [facility] Midodrine 10 mg 06/26/17 18:00 06/30/17 09:52 Proamatine PO 10 mg TID [facility] Administration Pantoprazole Sodium 40 mg 06/25/17 10:00 06/30/17 09:51 Protonix Susp NG 40 mg DAILY [facility] Administration - Patient Studies Lab Studies: Lab Studies 06/30/17 06/29/17 Range/Units 08:14 13:01 Puncture Site Lr pCO2 67 H (35-45) mm/Hg pO2 140 H (80-100) mm/Hg HCO3 27.5 (21-28) mmol/L ABG pH 7.28 L (7.35-7.45) ABG Total CO2 33.6 H (22-28) mmol/L ABG O2 Saturation 99.8 H (95-98) % ABG Base Excess 3.3 H (-2.0-3.0) mmol/L ABG Hemoglobin 11.0 L (11.7-17.4) g/dL ABG Carboxyhemoglobin 2.8 H (0.5-1.5) % POC ABG HHb (Measured) 0.2 (0.0-5.0) % ABG Methemoglobin 1.4 (0.0-3.0) % Sj Test Pos A-a O2 Difference -10.0 mm/Hg Respiratory Index -0.1 Hgb O2 Saturation 95.6 (95.0-98.0) % Liter Flow 3.0 FiO2 30.0 % C. difficile Ag & Toxin Negative (NEGATIVE) Laboratory Results - last 24 hr 06/29/17 06/30/17 13:01 08:14 Puncture Site Lr pCO2 67 H pO2 140 H HCO3 27.5 ABG pH 7.28 L ABG Total CO2 33.6 H ABG O2 Saturation 99.8 H ABG Base Excess 3.3 H ABG Hemoglobin 11.0 L ABG Carboxyhemoglobin 2.8 H POC ABG HHb (Measured) 0.2 ABG Methemoglobin 1.4 Sj Test Pos A-a O2 Difference -10.0 Respiratory Index -0.1 Hgb O2 Saturation 95.6 Liter Flow 3.0 FiO2 30.0 C. difficile Ag & Toxin Negative Review of Systems - Review of Systems Review of Systems: Unable to evaluate adequate ROS due to patient's clinical status Critical Care Progress Note - Ventilator Checklist Head of Bed 30 Degrees: No Daily Sedation Vacation: No Daily Assessment of Readiness to Wean: No Daily Spontaneous Breathing Trial: No Assessment/Plan - Assessment and Plan (Free Text) Assessment: Patient is a 76 year old female with PMH of COPD, Asthma, HTN, Cardiomegaly, Dementia who has had an extensive complicated hospital course. Patient was transfer to the ICU due to hypotension and lethargic s/p HD (06/22/17). Today: Plan: Transfer to medical surgical floor * Continue with current management Plan: Neuro: Non-verbal and does not follow commands but responds to touch stimuli Cardio: Hypotension s/p HD (06/22/17), Hx of A.fibrillation, Hx of CHF, Medication/Management: * Lopressor 12.5mg PO daily (Held due to hypotension) * Midodrine 10mg PO TID * Heparin 5,000 units Q12H Pulm: Hx of respiratory distress. * Currently, on 3L NC Renal: End stage renal disease Medication/Management: * HD on , W, F * Procrit 10,000 unit with HD * Phoslo 667mg PO TIDCC Heme: Anemia secondary to ESRD Medication/Management: * Feosol 300ng PO daily ID: Leukocytosis, mild bandemia) * Blood Culture (No Growth- 06/22/17) * Lactate: 1.8. Procalcitonin: 4.16 (06/24/17) * F/u repeat urine culture (Unable to repeat urine culture as patient is oliguria) Medication: * Cefepime 1gm IVPB 24H (Started 06/24/17)----> Discontinued 06/29/17 * Vanco 1gm IVPB M,W, F (Started 06/26/17) * Flagyl 500mg IVBP Q8H ( Started 06/28/17) * Meropenem 500mg IVPB Q12H (Started 06/29/17) Prophylaxis: Cardio: Aspirin 81mg PO daily DVT: Heparin SC 5000 Q12H GI: Protonix 40 ng PO daily Zofran 4mg IVP Q6H prn NGT placement for nephro tube feeding PT and OT Palliative consult: DNR/DNI, HD will continue. Plan: Transfer to Medical Surgical floor
--- NOTE | 2017-06-30 11:45 | CP.PCM.PN ---
Subjective - Date & Time of Evaluation Date of Evaluation: 06/30/17 Time of Evaluation: 11:42 - Subjective Subjective: seen and examined discussed w/ ICU team, palliative team and pt's son Juan Carlos Hahn would wish to continue hemodialysis at this time. Pt is lethagic. Low BP noted ROS cannot be obtained Objective - Vital Signs/Intake and Output Vital Signs (last 24 hours): Temp Pulse Resp BP Pulse Ox 99 F 113 H 29 H 95/50 L 93 L 06/30/17 08:00 06/30/17 08:28 06/30/17 08:28 06/30/17 08:28 06/30/17 08:28 Intake and Output: 06/30/17 06/30/17 06:59 18:59 Intake Total 350 0 Balance 350 0 - Medications Medications: Current Medications Aspirin (Aspirin Chewable) 81 mg PO DAILY [facility] Last Admin: 06/30/17 09:50 Dose: 81 mg Calcium Acetate (Phoslo) 667 mg PO TIDCC [facility] Last Admin: 06/30/17 08:55 Dose: Not Given Ferrous Sulfate (Feosol Liq) 300 mg NG DAILY [facility] Last Admin: 06/30/17 09:50 Dose: 300 mg Heparin Sodium (Porcine) (Heparin) 5,000 units SC Q12 [facility] Last Admin: 06/30/17 09:50 Dose: 5,000 units Vancomycin HCl 1 gm/ Sodium (Chloride) 250 mls @ 166.7 mls/hr IVPB MWF [facility] Last Admin: 06/29/17 09:58 Dose: 166.7 mls/hr Metronidazole (Flagyl) 500 mg in 100 mls @ 100 mls/hr IVPB Q8 [facility] Last Admin: 06/30/17 05:33 Dose: 100 mls/hr Meropenem 500 mg/ Sodium (Chloride) 100 mls @ 200 mls/hr IVPB Q12H [facility] Last Admin: 06/30/17 00:31 Dose: 200 mls/hr Metoprolol Succinate (Toprol Xl) 12.5 mg PO DAILY [facility] Midodrine (Proamatine) 10 mg PO TID [facility] Last Admin: 06/30/17 09:52 Dose: 10 mg Pantoprazole Sodium (Protonix Susp) 40 mg NG DAILY [facility] Last Admin: 06/30/17 09:51 Dose: 40 mg - Labs Labs: 06/29/17 06:28 06/29/17 06:28 PT 14.3 SECONDS (9.7-12.2) H 06/09/17 06:24 INR 1.3 06/09/17 06:24 APTT 27 SECONDS (21-34) 06/09/17 06:24 - Constitutional Appears: No Acute Distress, Older Than Stated Age, Chronically Ill - Head Exam Head Exam: NORMAL INSPECTION - Eye Exam Eye Exam: Normal appearance - ENT Exam ENT Exam: Mucous Membranes Dry - Neck Exam Neck Exam: Normal Inspection - Respiratory Exam Respiratory Exam: Decreased Breath Sounds, NORMAL BREATHING PATTERN - Cardiovascular Exam Cardiovascular Exam: RRR Additional comments: rt chest permcath - GI/Abdominal Exam GI & Abdominal Exam: Distended, Soft - Extremities Exam Extremities Exam: Normal Inspection, Pedal Edema Assessment and Plan (1) CEZAR (acute kidney injury) Status: Acute (2) Acute respiratory failure Status: Acute (3) Atrial fibrillation, new onset Status: Acute (4) COPD exacerbation Status: Acute (5) Change in mental state Status: Acute (6) Elevated WBCs Status: Acute - Assessment and Plan (Free Text) Assessment: maintain hd mwf per family wishes consider LTAC placement DNR status noted
[2017-06-30 16:12] VITALS: RESP 20
[2017-06-30 16:20] VITALS: PULSE 113; TEMP 99.8
--- NOTE | 2017-06-30 18:26 | CP.PCM.PRO ---
Pronouncement of Note - Clinical Findings Physical Exam: No Response Verbal/Painful Stimuli, Absent Peripheral Pulses{ Carotid & Femoral}, Absent Heart & Breath Sounds, No Pupillary Light Reflex, No Corneal Reflex, Pupils Fixed & Dilated, Absence of Vital Signs - Pronouncement Time Time of Pronouncement of : 18:18 - Notifications Pronouncement Notifications: Family Notified, Atending Notified Pattern Maker Notified: No - Autopsy Autopsy Requested: No [place] [id number]
--- NOTE | 2017-06-30 18:55 | CP.PCM.DIS ---
Provider - Provider Date of Admission: 05/22/17 11:08 Attending physician: Rich Puri DO Time Spent in preparation of Discharge (in minutes): 0 Diagnosis - Discharge Diagnosis (1) CEZAR (acute kidney injury) Status: Acute (2) Acute respiratory failure with hypoxia and hypercapnia Status: Acute (3) Atrial fibrillation, new onset Status: Acute (4) COPD exacerbation Status: Acute (5) CHF (congestive heart failure) Status: Chronic (6) ESRD (end stage renal disease) Status: Acute (7) Pneumonia Status: Acute Hospital Course - Lab Results Lab Results: Micro Results 06/29/17 14:00 Blood Blood Culture - Preliminary NO GROWTH AFTER 24 HOURS 06/29/17 14:30 Blood Blood Culture - Preliminary NO GROWTH AFTER 24 HOURS 06/22/17 12:05 Blood-During Dialysis Blood Culture - Final NO GROWTH AFTER 5 DAYS 06/22/17 12:05 Blood-During Dialysis Gram Stain - Final TEST NOT PERFORMED 06/22/17 11:35 Blood-During Dialysis Blood Culture - Final NO GROWTH AFTER 5 DAYS 06/22/17 11:35 Blood-During Dialysis Gram Stain - Final TEST NOT PERFORMED 06/22/17 18:21 Naris MRSA Culture (Admit) - Final MRSA NOT DETECTED 06/11/17 Unknown Naris MRSA Culture (Admit) - Final MRSA NOT DETECTED 06/02/17 22:59 Sputum Gram Stain - Final 06/02/17 22:59 Sputum Sputum Culture - Final Yeast Species 05/26/17 10:48 Trachasp Gram Stain - Final 05/26/17 10:48 Trachasp Sputum Culture - Final NORMAL ORAL EMILEE 05/22/17 16:25 Blood-Venous Blood Culture - Final NO GROWTH AFTER 5 DAYS 05/22/17 16:25 Blood-Venous Gram Stain - Final TEST NOT PERFORMED 05/22/17 16:55 Blood-Venous Blood Culture - Final NO GROWTH AFTER 5 DAYS 05/22/17 16:55 Blood-Venous Gram Stain - Final TEST NOT PERFORMED 05/22/17 17:56 Urine,Catheterized Urine Culture - Final No Growth (<1,000 CFU/ML) 05/22/17 11:36 Naris MRSA Culture (Admit) - Final MRSA NOT DETECTED Most Recent Lab Values WBC 25.3 K/uL (4.8-10.8) H 06/29/17 06:28 RBC 3.46 Mil/uL (3.80-5.20) L 06/29/17 06:28 Hgb 11.0 g/dL (11.0-16.0) 06/29/17 06:28 Hct 35.2 % (34.0-47.0) 06/29/17 06:28 MCV 101.7 fL (81.0-99.0) H 06/29/17 06:28 MCH 31.8 pg (27.0-31.0) H 06/29/17 06:28 MCHC 31.3 g/dL (33.0-37.0) L 06/29/17 06:28 RDW 26.0 % (11.5-14.5) H 06/29/17 06:28 Plt Count 214 K/uL (130-400) 06/29/17 06:28 MPV 8.2 fL (7.2-11.7) 06/29/17 06:28 Neut % (Auto) 74.1 % (50.0-75.0) 06/29/17 06:28 Lymph % (Auto) 17.1 % (20.0-40.0) L 06/29/17 06:28 [place] % (Auto) 8.1 % (0.0-10.0) 06/29/17 06:28 Eos % (Auto) 0.3 % (0.0-4.0) 06/29/17 06:28 Baso % (Auto) 0.4 % (0.0-2.0) 06/29/17 06:28 Neut # 18.7 K/uL (1.8-7.0) H 06/29/17 06:28 Lymph # 4.3 K/uL (1.0-4.3) 06/29/17 06:28 [place] # 2.0 K/uL (0.0-0.8) H 06/29/17 06:28 Eos # 0.1 K/uL (0.0-0.7) 06/29/17 06:28 Baso # 0.1 K/uL (0.0-0.2) 06/29/17 06:28 Neutrophils % (Manual) 68 % (50-75) 06/29/17 06:28 Band Neutrophils % 8 % (0-2) H 06/29/17 06:28 Lymphocytes % (Manual) 13 % (20-40) L 06/29/17 06:28 Monocytes % (Manual) 7 % (0-10) 06/29/17 06:28 Eosinophils % (Manual) 1 % (0-4) 06/29/17 06:28 Basophils % (Manual) 1 % (0-2) 06/07/17 06:02 Metamyelocytes % 2 % (0-0) H 06/29/17 06:28 Myelocytes % 1 % (0-0) H 06/29/17 06:28 Promyelocytes % 0 % (0-0) 06/23/17 06:45 Nucleated RBC % 8 % (0-0) H 06/29/17 06:28 Differential Comment 06/11/17 06:19 Hypersegmented Polys Present 06/01/17 18:54 Smudge Cells Present 06/01/17 18:54 Toxic Granulation Present 06/29/17 06:28 Platelet Estimate Normal (NORMAL) 06/29/17 06:28 Large Platelets Present 06/27/17 07:41 RBC Morphology Normal 05/29/17 06:18 Polychromasia Slight 06/29/17 06:28 Hypochromasia (manual) Slight 06/27/17 07:41 Poikilocytosis (manual Slight 06/29/17 06:28 Basophilic Stippling Slight 06/29/17 06:28 Anisocytosis (manual) Moderate 06/29/17 06:28 Microcytosis (manual) Slight 06/27/17 07:41 Macrocytosis (manual) Moderate 06/29/17 06:28 Spherocytes Slight 06/27/17 07:41 Target Cells Slight 06/05/17 06:26 Tear Drop Cells Slight 06/23/17 06:45 Ovalocytes Slight 06/29/17 06:28 [place] Bodies Slight 06/05/17 06:26 [place] Cells Slight 06/05/17 06:26 Retic Count 1.5 % (0.5-1.5) 06/01/17 06:00 PT 14.3 SECONDS (9.7-12.2) H 06/09/17 06:24 INR 1.3 06/09/17 06:24 APTT 27 SECONDS (21-34) 06/09/17 06:24 Fibrinogen 655 mg/dL (200-400) H 06/04/17 12:57 Fibrin Degrad Products Positive (NEGATIVE) H 06/04/17 12:57 Fibrin Degrad Prod, Qt >10<40 ug/mL (<10) H 06/04/17 12:57 D-Dimer, Quantitative 779 ng/mlDDU (0-243) H 06/03/17 17:53 Puncture Site Lr 06/29/17 13:01 pCO2 67 mm/Hg (35-45) H 06/29/17 13:01 pO2 140 mm/Hg (80-100) H 06/29/17 13:01 HCO3 27.5 mmol/L (21-28) 06/29/17 13:01 ABG pH 7.28 (7.35-7.45) L 06/29/17 13:01 ABG Total CO2 33.6 mmol/L (22-28) H 06/29/17 13:01 ABG O2 Saturation 99.8 % (95-98) H 06/29/17 13:01 ABG Base Excess 3.3 mmol/L (-2.0-3.0) H 06/29/17 13:01 ABG Hemoglobin 11.0 g/dL (11.7-17.4) L 06/29/17 13:01 ABG Carboxyhemoglobin 2.8 % (0.5-1.5) H 06/29/17 13:01 POC ABG HHb (Measured) 0.2 % (0.0-5.0) 06/29/17 13:01 ABG Methemoglobin 1.4 % (0.0-3.0) 06/29/17 13:01 Sj Test Pos 06/29/17 13:01 ABG Potassium 3.5 mmol/L (3.6-5.2) L 06/22/17 13:57 VBG pH 7.19 (7.32-7.43) L* 05/22/17 09:51 VBG pCO2 115 mmHg (40-60) H* 05/22/17 09:51 VBG HCO3 32.0 mmol/L 05/22/17 09:51 VBG O2 Sat (Calc) 63.9 % (40-65) 05/22/17 09:51 VBG Base Excess 10.8 mmol/L (0.0-2.0) H 05/22/17 09:51 A-a O2 Difference -10.0 mm/Hg 06/29/17 13:01 Respiratory Index -0.1 06/29/17 13:01 Hgb O2 Saturation 95.6 % (95.0-98.0) 06/29/17 13:01 Sodium 141.0 mmol/l (132-148) 06/22/17 13:57 Chloride 105.0 mmol/L (98-107) 06/22/17 13:57 Glucose 132 mg/dl (65-105) H 06/22/17 13:57 Lactate 2.3 mmol/L (0.7-2.1) H 06/22/17 13:57 Liter Flow 3.0 06/29/17 13:01 Vent Mode Bipap 06/06/17 05:19 Mechanical Rate 20 06/05/17 06:00 FiO2 30.0 % 06/29/17 13:01 Tidal Volume 500 06/05/17 06:00 PEEP 5 06/05/17 06:00 Pressure Support 10 05/29/17 11:32 CPAP 8 05/29/17 11:32 Inspiratory BiPAP 10 06/06/17 05:19 Expiratory BiPAP 5 06/06/17 05:19 Crit Value Called To Dr holliday 06/01/17 14:05 Crit Value Called By Alberto hurst crt 06/01/17 14:05 Crit Value Read Back Y 06/01/17 14:05 Blood Gas Notified Time 1420 06/01/17 14:05 Sodium 136 mmol/L (132-148) 06/29/17 06:28 Potassium 3.9 mmol/L (3.6-5.2) 06/29/17 06:28 Chloride 96 mmol/L (98-107) L 06/29/17 06:28 Carbon Dioxide 25 mmol/L (22-30) 06/29/17 06:28 Anion Gap 19 (10-20) 06/29/17 06:28 BUN 75 mg/dL (7-17) H 06/29/17 06:28 Creatinine 5.1 mg/dL (0.7-1.2) H 06/29/17 06:28 Est GFR ( Amer) 10 06/29/17 06:28 Est GFR (Non-Af Amer) 8 06/29/17 06:28 POC Glucose (mg/dL) 144 mg/dL (65-110) H 06/22/17 13:31 Random Glucose 120 mg/dL (65-105) H 06/29/17 06:28 Lactic Acid 1.8 mmol/L (0.7-2.1) 06/24/17 09:28 Calcium 9.1 mg/dl (8.6-10.4) 06/29/17 06:28 Phosphorus 3.3 mg/dL (2.5-4.5) 06/29/17 06:28 Magnesium 2.7 mg/dL (1.6-2.3) H 06/29/17 06:28 Iron 14 ug/dL (37-170) L 05/23/17 06:12 TIBC 417 ug/dL (250-450) 05/23/17 06:12 % Saturation 3 (20-55) L 05/23/17 06:12 Ferritin 85.0 ng/mL 06/01/17 06:00 Total Bilirubin 0.9 mg/dL (0.2-1.3) 06/29/17 06:28 AST 59 U/L (14-36) H D 06/29/17 06:28 ALT 28 U/L (9-52) 06/29/17 06:28 Alkaline Phosphatase 98 U/L (38-126) 06/29/17 06:28 Troponin I 0.5580 ng/mL (0.00-0.120) H* 05/23/17 06:12 NT-Pro-B Natriuret Pep 5390 pg/mL (0-900) H 05/22/17 09:58 Total Protein 7.1 g/dL (6.3-8.3) 06/29/17 06:28 Albumin 3.4 g/dL (3.5-5.0) L 06/29/17 06:28 Globulin 3.8 gm/dL (2.2-3.9) 06/29/17 06:28 Albumin/Globulin Ratio 0.9 (1.0-2.1) L 06/29/17 06:28 Vitamin B12 823 pg/mL (239-931) 06/01/17 06:00 Folate > 20.0 ng/mL 06/01/17 06:00 Procalcitonin 2.71 NG/ML (0.19-0.49) H 06/28/17 12:33 PTH Intact Whole [place] 135 pg/mL (14-64) H 06/12/17 07:15 Arterial Blood Potassium 3.5 mmol/L (3.6-5.2) L 06/22/17 13:57 Urine Color Stella (YELLOW) 06/01/17 16:29 Urine Clarity Hazy (Clear) 06/01/17 16:29 Urine pH 5.0 (5.0-8.0) 06/01/17 16:29 Ur Specific [place] 1.025 (1.003-1.030) 06/01/17 16:29 Urine Protein 2+ mg/dL (NEGATIVE) H 06/01/17 16:29 Urine Glucose (UA) 1+ mg/dL (Normal) 06/01/17 16:29 Urine Ketones Negative mg/dL (NEGATIVE) 06/01/17 16:29 Urine Blood 3+ (NEGATIVE) H 06/01/17 16:29 Urine Nitrate Negative (NEGATIVE) 06/01/17 16:29 Urine Bilirubin Negative (NEGATIVE) 06/01/17 16:29 Urine Urobilinogen Normal mg/dL (0.2-1.0) 06/01/17 16:29 Ur Leukocyte Esterase 1+ Monique/uL (Negative) H 06/01/17 16:29 Urine WBC (Auto) 24 /hpf (0-5) H 06/01/17 16:29 Urine RBC (Auto) 702 /hpf (0-3) H 06/01/17 16:29 Ur Squamous Epith Cells 1 /hpf (0-5) 06/01/17 16:29 Urine Bacteria Few (<OCC) H 06/01/17 16:29 Ur Random Sodium 17 mmol/L 06/01/17 16:29 Ur Random Potassium 79.9 mmol/L 05/28/17 13:16 Urine Chloride <15 mmol/L (32-290) L 05/28/17 13:16 Stool Occult Blood Positive (NEGATIVE) H 06/02/17 14:11 Vancomycin Trough 14.1 ug/mL (5.0-10.0) H 05/29/17 19:47 C. difficile Ag & Toxin Negative (NEGATIVE) 06/30/17 08:14 Hep Bs Antigen Negative (NEGATIVE) 06/02/17 20:27 Hep Bs Antibody Negative (NEGATIVE) 06/02/17 20:27 Hep B Core IgM Ab Negative (NEGATIVE) 06/02/17 20:27 Hepatitis C Antibody Negative (NEGATIVE) 06/02/17 20:27 Ur L.pneumophila Ag Negative (NEGATIVE) 05/26/17 09:14 Mycoplasma pneumon IgM Negative (NEGATIVE) 05/26/17 09:14 Blood Type A POSITIVE 06/01/17 06:53 Blood Type Confirm A POSITIVE 06/01/17 06:53 Antibody Screen Negative 06/01/17 06:53 - Hospital Course Hospital Course: Per admission documentation, Patient is a 76 year old female with PMH of COPD, Asthma, HTN, Cardiomegaly, Dementia who presents with SOB for the past three days. Patient seen in ED on BiPAP and primarily Syriac speaking; history was provided by son. Per son, patient has associated hypersomnolence, weakness and fatigue the past three days. Her homemaker noted memory loss as well. She had a similar episode 2 years ago and was admitted to [facility] where she received "breathing treatment and stayed for one week". Admits to occasional vomiting which is chronic due to reflux issues. Denies fevers, chills, headaches, chest pain, palpitations, cough, nausea, diarrhea, constipation, or dizziness. Hospital course, Patient had an extended period of stay at the hospital, complicated by acute respiratory failure, COPD, CHF, CEZAR, ESRD on HD, afib and pneumonia. Patient was intubated multiple times during her stay. She was in and out of the ICU multiple times as well. Patient was made a DNR/DNI on 06/29/2017. She was moved out of the ICU in the early afternoon on 06/30/17 and passed at 18:18 (6:18p) on 06/30/17. Patient's son, Juan Carlos Hughes, called and notified. Patient's primary physician, Dr. Costa, called and notified. Patient's primary attending, Dr. Puri, called and notified. Patient at 18:18 on 06/30/17. - Date & Time of H&P Date of H&P: 05/22/17 Time of H&P: 13:25 Discharge Exam - Head Exam Head Exam: NORMAL INSPECTION Discharge Plan - Follow Up Plan Condition: SERIOUS Disposition: HOME/ ROUTINE
--- NOTE | 2017-06-30 18:59 | RAD ---
HISTORY: NG tube placement COMPARISON: Portable chest 06/29/2017. FINDINGS: Restrained motion severely degrades this examination's quality. Nasogastric tube is again identified placed extending into the abdomen with left central venous dialysis catheter unchanged. LUNGS: Medial basilar airspace disease not excluded. Diminishing airspace disease suggests at the left base. Inspiratory volume appears diminished. PLEURA: Small right pleural effusion is suggested. None is apparent at the left. No pneumothorax bilaterally. CARDIOVASCULAR: Prominent cardiac silhouette appears stable. No definitive pulmonary vascular derangement however rotation of the patient limits evaluation the hilar regions bilaterally. OSSEOUS STRUCTURES: No significant abnormalities. VISUALIZED UPPER ABDOMEN: Normal. OTHER FINDINGS: None. IMPRESSION: Restrained motion degrades quality exam. Increase medial basilar airspace disease is suggested the right and diminished at the left. Minimal right pleural effusion is suggested. None is noted at the left. Stable cardiomegaly.
[2017-06-30 19:26] VITALS: BP 69/41; O2SAT 77
--- NOTE | 2017-06-30 21:05 | CP.PCM.PN ---
Subjective - Date & Time of Evaluation Date of Evaluation: 06/30/17 Time of Evaluation: 10:05 - Subjective Subjective: Patient seen and evaluated Non verbal and non responsive Patient now DNR Physical Examination - Constitutional Appears: Non-toxic, No Acute Distress - Head Exam Head Exam: ATRAUMATIC - ENT Exam ENT Exam: Mucous Membranes Moist - Respiratory Exam Respiratory Exam: NORMAL BREATHING PATTERN - Cardiovascular Exam Cardiovascular Exam: +S1, +S2 - GI/Abdominal Exam GI & Abdominal Exam: Soft - Extremities Exam Extremities Exam: Normal Capillary Refill, Pedal Edema (trace) - Neurological Exam Neurological Exam: Altered - Psychiatric Exam Psychiatric exam: Flat Affect - Skin Skin Exam: Dry, Intact, Warm Objective - Vital Signs/Intake and Output Vital Signs (last 24 hours): Temp Pulse Resp BP Pulse Ox 99.8 F H 113 H 20 69/41 L 77 L 06/30/17 16:18 06/30/17 16:18 06/30/17 16:18 06/30/17 17:00 06/30/17 17:00 Intake and Output: 06/30/17 07/01/17 18:59 06:59 Intake Total 50 Balance 50 - Labs Labs: 06/29/17 06:28 06/29/17 06:28 PT 14.3 SECONDS (9.7-12.2) H 06/09/17 06:24 INR 1.3 06/09/17 06:24 APTT 27 SECONDS (21-34) 06/09/17 06:24 Assessment and Plan - Assessment and Plan (Free Text) Assessment: Patient is now DNR and DNI, pending hospice evaluation Hypotention: 06/30: This morning systolic BPs range in the 80s to 90s 06/29: Currently sytolic BPs range in the 80s to 90s range. She was moved back to the ICU after her BP became low following HD. She is on Midodrine at this time TID On IV abx, there is a high WBC. Cultures have been negative so far. ESRD 06/29: Pending HD again today Nephrology Consult, Dr. Anderson Patient developed acute renal failure Patient is currently on hemodialysis - MWF * Dr. Tristan consulted for Perma Cath placement;placed; patient received dialysis on 06/13 Renal US 06/11/17 - limited study due to patient's body habitus. No calculus or hydronephrosis identified b/l. Probable right renal cortical cyst measures approximately 0.7 x 0.4 x 0.8 cm AVF on 06/15/17 - bruit is present in right arm. Currently on HD MWF S/P LEFT PERMACATH on 06/18/17 - dialysis today Atrial fibrillation, new onset 06/30: This morning on telemetry appears to be back in atrial fibrillation. HR 100s to 110s 06/29: Currently NSR on telemetry HR 100s. Not on anticogulation due to previous heavy bleeding. Rate controlled - Diltiazem 30mg PO Q6H Not on anticoagulation because of anemia and ecchymosis patient will need cardiology f/u on discharge On Ferrous Sulfate 325mg PO daily for Anemia CHF (congestive heart failure); diastolic dysfunction with preserved EF 06/29 Currently requiring HD CXR 06/09 : stable cardiomegaly, small bilateral pleural effusions noted EF 57.8% Cont to monitor on Lasix PRN Sacral Decubitus Ulcer - stage 2 Located on the right upper buttocks Started on Aloe [place] lotion TID Turn pt every 2 hours Pneumonia 06/29: WBC 25, there is an elevated procalcitonin as well as some bands. Acute respiratory failure with hypoxia and hypercapnia; resolved Repeated episodes of hypercapnic respiratory distress. Patient was recently intubated and extubated twice. Now patient is monitored on oxygen by nasal cannula. Prophylactic measure Heparin SC 5000 Q12 Protonix 40 mg PO daily
== END 2017-06-30 18:18 | DRG 981 ==
LOC: C.ER 09:15 → C.9I 11:08 → C.6T 06-11 08:56 → C.9I 06-22 14:17 → C.3T 06-30 13:20
PROVIDERS: ADMIT Family Medicine; ATTEND Hospitalist
PROC: 5A1955Z Respiratory Ventilation, Greater than 96 Consecutive Hours (ICD-10-PCS; 2017-05-22)
PROC: 0BH17EZ Insertion of Endotracheal Airway into Trachea, Via Natural or Artificial Opening (ICD-10-PCS; 2017-05-22)
PROC: 5A1D70Z Performance of Urinary Filtration, Intermittent, Less than 6 Hours Per Day (ICD-10-PCS; 2017-06-02)
PROC: 05HN33Z Insertion of Infusion Device into Left Internal Jugular Vein, Percutaneous Approach (ICD-10-PCS; 2017-06-09)
PROC: 03170AF Bypass Right Brachial Artery to Lower Arm Vein with Autologous Arterial Tissue, Open Approach (ICD-10-PCS; principal; 2017-06-15 11:00)
PROC: 05PY33Z Removal of Infusion Device from Upper Vein, Percutaneous Approach (ICD-10-PCS; 2017-06-18)
PROC: 05HN33Z Insertion of Infusion Device into Left Internal Jugular Vein, Percutaneous Approach (ICD-10-PCS; 2017-06-18)
DX: J96.02 Acute respiratory failure with hypercapnia (principal); J18.9 Pneumonia, unspecified organism; R65.20 Severe sepsis without septic shock; N17.9 Acute kidney failure, unspecified; I13.2 Hypertensive heart and chronic kidney disease with heart failure and with stage 5 chronic kidney disease, or end stage renal disease; A41.9 Sepsis, unspecified organism; J44.0 Chronic obstructive pulmonary disease with (acute) lower respiratory infection; L89.312 Pressure ulcer of right buttock, stage 2; N18.6 End stage renal disease; E87.2 Acidosis; I50.30 Unspecified diastolic (congestive) heart failure; J44.1 Chronic obstructive pulmonary disease with (acute) exacerbation; I48.91 Unspecified atrial fibrillation; F03.90 Unspecified dementia, unspecified severity, without behavioral disturbance, psychotic disturbance, mood disturbance, and anxiety; K21.9 Gastro-esophageal reflux disease without esophagitis; Z99.2 Dependence on renal dialysis; Z66 Do not resuscitate; Z51.5 Encounter for palliative care